=== PATIENT | male | born 1975 | race Caucasian/White ===

== ENCOUNTER 2017-12-17 11:15 | Emergency (ER) | payer SELFPAY ==
[2017-12-17 11:17] VITALS: BP 141/89; PULSE 73; RESP 16; TEMP 37.1; O2SAT 98; BMI 37.9
--- NOTE | 2017-12-17 11:31 | ED.VISSUMM ---
- ER Visit Summary Date of Service: 12/17/17 Chief Complaint: [Cough] History of Present Illness: The patient is a 42 M [presents to the emergency department with a cough that started 2 days ago. Patient complains of postnasal drip, sore throat, body aches, headache and generally not feeling well. Patient denies any sick contacts. Patient has not had a fever. Patient's cough has not been productive.] Physical Examination: [HEENT-PERRLA, EOMI. Cranial nerves II through XII grossly intact. TMs clear. Mucous membranes moist. No adenopathy. Cardiovascular-regular rate and rhythm without murmur or ectopy Lungs-clear to auscultation, chest wall stable without crepitus or subcu emphysema Abdomen-normoactive bowel sounds, soft, nontender, no rebound or rigidity, no peritoneal signs. Extremities-intact ?4, normal range of motion, normal pulses, atraumatic] Test Results: [None indicated] Emergency Department Course and Treatment: [] Treatment Plan: [Patient will be given a prescription for Tessalon Perles. Patient advised to use Mucinex which is [id number] for congestion. Patient advised use ibuprofen for body aches and headache.] Disposition: [Discharged to home in stable condition. Patient advised to return if increased difficulty breathing or condition should worsen in any way.] Impression: [Viral upper respiratory infection-suspect influenza] This note was generated with [employer] dictation software. It may contain incorrect words, spelling, and punctuation that were not noted in review of the chart prior to signing ED Disposition - Plan for ED Patient: Chief Complaint: Cough Referrals: Nikko Mills MD [Primary Care Provider] -
--- NOTE | 2017-12-17 11:33 | ED.DEP ---
ED Disposition - Plan for ED Patient: Chief Complaint: Cough Instructions: ED Flu Prescriptions: Benzonatate [Tessalon Perle] 200 mg PO TID PRN PRN #20 cap PRN Reason: Cough Referrals: Nikko Mills MD [Primary Care Provider] - 5-7 Days
== END 2017-12-17 11:44 | disposition home or self-care (01) ==
LOC: ED 11:35
PROVIDERS: Emergency Provider Emergency Medicine; Family Provider Family Medicine; PCP Family Medicine
DX: J06.9 Acute upper respiratory infection, unspecified (principal); E11.9 Type 2 diabetes mellitus without complications; I10 Essential (primary) hypertension
CPT/HCPCS: 99282

== ENCOUNTER 2018-12-05 15:35 | Emergency (ER) | payer MEDICAID, SELFPAY ==
[2018-12-05 15:37] VITALS: BP 144/86; PULSE 81; RESP 16; TEMP 36; O2SAT 99; BMI 34.1
[2018-12-05 16:03] VITALS: O2SAT 99
--- NOTE | 2018-12-05 16:03 | EKG12_ITS ---
Test Reason : SOB Blood Pressure : / mmHG Vent. Rate : 059 BPM Atrial Rate : 059 BPM P-R Int : 178 ms QRS Dur : 100 ms QT Int : 426 ms P-R-T Axes : 022 128 014 degrees QTc Int : 421 ms Sinus bradycardia Left posterior fascicular block Abnormal ECG Confirmed by TINA JUAREZ, DANIEL ([id number]), field map editor REY DIAZ ([id number] on 12/08/2018 10:20:01 AM Referred By: DANAE Confirmed By:DANIEL WILDER MD
--- NOTE | 2018-12-05 16:07 | ED.DCSUM_ITS ---
- ER Visit Summary Date of Service: 12/05/18 Chief Complaint: Cough History of Present Illness: The patient is a 43 M past medical history of insulin pen diabetes, hypertension, high cholesterol kidney stones. No prior surgeries. Patient states since yesterday he has been coughing up black stuff. I asked him if it was bloody said no it was black stuff. He denies nausea, vomiting or diarrhea. No history of DVT or PE. No recent travel or surgery. No cardiac history. He denies any fever or chills. Physical Examination: Well-appearing middle-age male. Vital signs are stable afebrile. Pulse ox 9 9% on room air no hypoxia. HEENT exam unremarkable. Neck nontender no lymphadenopathy. Lungs clear to auscultation bilaterally. No rales, rhonchi or wheezing. Equal symmetrical. Heart regular rate and rhythm no murmur rate about 80. Chest wall nontender. Abdomen soft nontender. Extremities moves all 4. Calves nontender. No edema. No cords. Back nontender. Lungs are clear posteriorly. Neurologic exam normal. All 4 extremities. Neurovascular intact. NIH is 0. Test Results: Chest x-ray 2 views shows no acute abnormality read both by myself and radiologist. EKG sinus rhythm rate of 59 no acute signs of FL or ischemia. CBC shows a white count 12.6. Normal hemoglobin is 16. No bands. Electrolytes unremarkable with a normal creatinine and gap. Blood sugar is elevated at 334. He is diabetic and states he had donuts this morning. Troponin d-dimer negative. Emergency Department Course and Treatment: Due to his complaints. Clinically this does not sound cardiac and I think it is very unlikely to be a PE. Repeat exam at 1716 p.m. patient is doing well. Unchanged. Comfortable being discharged home. We did discuss all his test results and went over his chest x- ray. Treatment Plan: Follow-up with his primary care physician in 5 days if not improving. Disposition: Discharge Impression: Acute dyspnea uncertain etiology This note was generated with [employer] dictation software. It may contain incorrect words, spelling, and punctuation that were not noted in review of the chart prior to signing ED Disposition - Plan for ED Patient: Referrals: Nikko Mills MD [Primary Care Provider] -
--- NOTE | 2018-12-05 16:20 | RAD_ITS ---
STUDY: X-RAY CHEST REASON FOR EXAM: Male, 43 years old. Short of breath. Chest pain. TECHNIQUE: Frontal and lateral views of the chest. COMPARISON: 11/09/2017. FINDINGS: The lungs are clear and expanded. There is no demonstrated pleural abnormality. Normal size heart. Normal mediastinum and leland. Normal visualized pulmonary arteries. Normal visualized aortic arch and descending thoracic aorta. Normal visualized thoracic spine. Normal visualized ribs, clavicles, and shoulders. There is no demonstrated abnormality of the visualized soft tissue structures of the upper abdomen. RAD/Chest PA and Lateral IMPRESSION: Normal x-ray examination of the chest. Electronically Signed: Wing Marcano MD at 17:03 EST , Service support ,
[2018-12-05 16:22] VITALS: O2SAT 98
[2018-12-05 16:28] LABS: Absolute Lymphocyte Count 0.74 X10^3/ul (0.83-4.51); Absolute Neutrophil Count 11.7 X10^3/uL (2.0-7.7); Basophil# 0.02 X10^3/uL; Basophil% 0.2 % (0-1); Eosinophil# 0.01 X10^3/uL; Eosinophils% 0.1 % (0-5); Hematocrit 48.1 % (40-54); Lymphocyte # 0.74 X10^3/ul (4.0); Lymphocyte % 5.9 % (19-41); Mean Corp Hgb Conc 33.3 g/gl (32-36); Mean Corpuscular Hgb 29.5 pg (27.0-32.0); Mean Corpuscular Volume 88.7 fL (80-94); Mean Platelet Vol. 11.9 fl (6.2-12.0); Monocyte% 0.8 % (0-10); Neutrophil # 11.73 X10^3/uL (2.7-7.7); Neutrophil % 92.7 % (47-70); Platelet Count 272 K/mm3 (150-450); RBC Distribution Width CV 12.7 % (11.6-14.6); RBC Distribution Width SD 41.5 fl (35.1-43.9); Red Blood Count 5.42 M/mm3 (4.6-6.2); White Blood Count 12.6 K/mm3 (4.4-11.0)
[2018-12-05 16:39] VITALS: BP 143/78; PULSE 64; RESP 17; TEMP 36; O2SAT 98
[2018-12-05 16:42] LABS: Anion Gap 8 (5-15); BUN 11 mg/dL (7-18); BUN/Creat Ratio 11.1 RATIO (10-20); Calcium,Total 9.3 mg/dL (8.5-10.1); Chloride 105 mmol/L (98-107); Creatinine, Serum 0.99 mg/dL (0.70-1.30); EST Glomerular Filtration Rate 87 mL/min (>60); Est Glom Filt Rate - Afr Amer 106 mL/min (>60); Estimated Creatinine Clearance 102.47 ml/min; Glucose 334 mg/dL (74-106); Potassium 4.7 mmol/L (3.5-5.1); Sodium Level 137 mmol/L (136-145)
[2018-12-05 16:45] LABS: D-Dimer Quantitative (DVT/PE) < 0.27 FEU/ug/m (0.27-0.49)
[2018-12-05 16:46] LABS: POSITIVE COUNT NO; POSITIVE DIFFERENTIAL NO; POSITIVE MORPHOLOGY NO
--- NOTE | 2018-12-05 17:20 | ED.DEP ---
ED Disposition - Plan for ED Patient: Disposition: Home or Assisted Living Instructions: ED Dyspnea Shortness of Breath Referrals: Nikko Mills MD [Primary Care Provider] - 1 Week if not improving
[2018-12-05 17:27] VITALS: BP 125/73; PULSE 63; RESP 13; O2SAT 96
== END 2018-12-05 17:32 | disposition home or self-care (01) ==
PROVIDERS: Emergency Provider Emergency Medicine; Family Provider Family Medicine; PCP Family Medicine
DX: R06.00 Dyspnea, unspecified (principal); E11.65 Type 2 diabetes mellitus with hyperglycemia; I10 Essential (primary) hypertension; E78.00 Pure hypercholesterolemia, unspecified; Z87.442 Personal history of urinary calculi
CPT/HCPCS: 71046; 80048; 84484; 85025; 85379; 93005; 99284; A4216

== ENCOUNTER → 2019-04-29 10:59 | Outpatient (CLI) | payer MEDICAID, SELFPAY ==
[2019-04-29 12:47] LABS: Basophil# 0.04 X10^3/uL; Basophil% 0.4 % (0-1); Eosinophil# 0.51 X10^3/uL; Eosinophils% 4.7 % (0-5); Hematocrit 47.6 % (40-54); Lymphocyte % 21.2 % (19-41); Mean Corp Hgb Conc 33.6 g/gl (32-36); Mean Corpuscular Hgb 29.2 pg (27.0-32.0); Mean Corpuscular Volume 86.9 fL (80-94); Mean Platelet Vol. 12.7 fl (6.2-12.0); Monocyte# 1.03 X10^3/uL; Monocyte% 9.5 % (0-10); Neutrophil # 6.96 X10^3/uL (2.7-7.7); Platelet Count 244 K/mm3 (150-450); RBC Distribution Width CV 13.2 % (11.6-14.6); RBC Distribution Width SD 41.8 fl (35.1-43.9); Red Blood Count 5.48 M/mm3 (4.6-6.2); White Blood Count 10.9 K/mm3 (4.4-11.0)
[2019-04-29 12:54] LABS: POSITIVE COUNT NO; POSITIVE DIFFERENTIAL NO; POSITIVE MORPHOLOGY NO
[2019-04-29 13:03] LABS: ALB/GLOB Ratio 1.1 RATIO (0.9-2.4); AST(SGOT) 12 U/L (15-37); Alanine Aminotransfer ALT/SGPT 28 U/L (16-61); Alkaline Phosphatase 94 U/L (45-117); Anion Gap 6 (5-15); BUN 14 mg/dL (7-18); BUN/Creat Ratio 18.5 RATIO (10-20); Chloride 103 mmol/L (98-107); Creatinine, Serum 0.76 mg/dL (0.70-1.30); EST Glomerular Filtration Rate 119 mL/min (>60); Est Glom Filt Rate - Afr Amer 144 mL/min (>60); Globulin 3.8 g/dL (2.2-4.2); Glucose 227 mg/dL (74-106); Potassium 4.1 mmol/L (3.5-5.1); Protein, Total 7.8 g/dL (6.4-8.2); Sodium Level 134 mmol/L (136-145); Thyroid Stim Hormone (TSH) 2.31 uIU/mL (0.358-3.74)
== END ==
PROVIDERS: Family Provider Family Medicine; PCP Family Medicine; Visit Provider Family Medicine Geriatric Medicine
DX: E11.9 Type 2 diabetes mellitus without complications (principal)
CPT/HCPCS: 36415; 80053; 84443; 85025

== ENCOUNTER 2020-02-13 10:24 | Emergency (ER) | payer MEDICAID, SELFPAY ==
[2020-02-13 10:25] VITALS: BP 136/86; RESP 18; TEMP 36.4; O2SAT 99; BMI 34.8
--- NOTE | 2020-02-13 10:39 | RAD_ITS ---
STUDY: X-RAY - RIGHT SHOULDER REASON FOR EXAM: Male, 44 years old. felt a pop today when pulling on something TECHNIQUE: 4 view(s) of the shoulder. COMPARISON: None. FINDINGS: Normal glenohumeral articulation. Normal acromioclavicular joint. Normal acromion. Normal humeral head and visualized proximal humerus. The soft tissue structures are unremarkable. There is no demonstrated fracture. Normal visualized pulmonary apex. RAD/Shoulder min 2 Views IMPRESSION: Normal x-ray examination of the shoulder. Electronically Signed: Saul Castillo MD at 12:07 EDT , Service support ,
--- NOTE | 2020-02-13 10:51 | ED.DCSUM_ITS ---
History of Present Illness Informant: Patient Occurred: Yesterday Mechanism/Context: Injury Onset: Yesterday Context: Sudden Onset Timing: Continuous Quality of Pain: Sharp Location: Right shoulder Current Severity: Moderate Maximum Severity: Severe Worsened by: Movement Relieved by: Rest Associated Symptoms: Negative for: Parasthesia, Weakness, Loss of Funtion Narrative: 44-year-old [id number] male with a past medical history of hypertension hyperlipidemia and type 2 diabetes mellitus presents to the emergency department with right shoulder pain. He was working on his car yesterday and he was pulling a part out of the engine with a lot of force in he felt a pop in his right shoulder. He has had continued pain and swelling. No trauma. No weakness numbness or tingling. No other injuries. No history of injury or surgery previously. Tetanus Immunization: Unknown Prior similar symptoms: No Recent Illness/Hospitalization: No <Monroe Rollins - Last Filed: 02/13/20 11:32> <Xuan Montgomery - Last Filed: 02/13/20 11:37> Chief Complaint: Upper Extremity Injury Past Medical History Prior records reviewed: Yes Past Medical History: - - HTN, HPL, DM2 Surgical History: no surgical history Smoking Status: Never smoker - Family History Paternal Family History: Reports: Heart Disease - dad at 40 YOA with an [place] <Monroe Rollins - Last Filed: 02/13/20 11:32> <Xuan Montgomery - Last Filed: 02/13/20 11:37> - Allergies and Home Meds Allergies/Adverse Reactions: Allergies No Known Allergies Allergy (Verified 02/13/20 10:25) Primary Care Physician: Nikko Mills MD [Primary Care Provider] - Arnaud Tucker DO [STAFF PHYSICIAN] - As soon as possible Review of Systems All systems negative except as indicated General: Denies: Chills, Fever, Malaise Eyes: Denies: Visual changes - bilaterally, Blurred Vision - bilaterally, Diplopia ENT: Denies: Rhinorrhea, Sore throat Cardiovascular: Denies: Chest pain, Palpitations, Heart racing Respiratory: Denies: Dyspnea, Cough, Sputum, Dyspnea on exertion Gastrointestinal: Denies: Abdominal pain, Nausea, Vomiting, Diarrhea Genitourinary: Denies: Dysuria, Hematuria, Frequency Musculoskeletal: Reports: Extremity Pain. Denies: Myalgias, Arthralgias, Neck pain, Back pain, Swelling Skin: Denies: Rash, Abscess, Abrasions, Wounds Neurological: Denies: Headache, Weakness, Parasthesia, Numbness Hematologic: Denies: Easy bruising, Easy bleeding <Mornoe Rollins - Last Filed: 02/13/20 11:32> Physical Exam Vital Signs/Narrative: Vital Signs Temp Resp BP Pulse Ox 02/13/20 10:25 97.5 F L 18 136/86 H 99 Inital Vital Signs reviewed: Yes Right Shoulder: Limited ROM, - - Normal inspection right shoulder. Tenderness anteriorly. He has pain with abduction, as well as internal and external rotation mostly anteriorly. He has no bony tenderness of his clavicle or scapula. He does not have any pain over his bicep or tricep. He has no tenderness over his elbow or wrist. [employer] strength was equal bilaterally. Radial pulse is normal.. Negative for: Abrasion, Contusion, Deformity, Edema, Hematoma General: Well nourished, Well developed Head: Normocephalic, Atraumatic Eyes: Perrl, EOMI ENT: No Trauma, Moist Mucous Membranes Neck: Nontender, Full ROM. Negative for: Spinal Tenderness, Paraspinal Tenderness Cardiovascular: Regular rate, Regular rhythm, No murmurs Respiratory: No distress, CTA bilaterally, Chest nontender Abdomen: Soft, Nontender, Nondistended, Normal bowel sounds, No masses Back: Nontender. Negative for: Spinal Tenderness, Paraspinal Tenderness Skin: Normal color, No rash, No Trauma Neurological: Alert, Oriented x3, Normal Strength, Normal Sensation Psychological: Normal affect, Normal Mood <Monroe Rollins - Last Filed: 02/13/20 11:32> Vital Signs/Narrative: Vital Signs Temp Resp BP Pulse Ox 02/13/20 10:25 97.5 F L 18 136/86 H 99 <Xuan Montgomery - Last Filed: 02/13/20 11:37> Diagnostic/Tx/Re-eval - Medical Decision Making Patient declined analgesia. X-ray right shoulder interpreted independently by the emergency room physician. No acute abnormality was seen. Patient was advised he will need close follow-up as an outpatient with orthopedics as he could have a soft tissue injury such as a labral injury or rotator cuff injury. He will be given a sling. He states that he has both Tylenol and ibuprofen to use at home for pain and does not require further analgesia. I gave him instructions about not wearing his sling at all times to avoid frozen shoulder. He will rest and ice. He will be given orthopedic follow-up. Return precautions discussed. <Monroe Rollins - Last Filed: 02/13/20 11:32> - Medical Decision Making Patient seen and evaluated with physicians bilingual office assistant. Patient was independently patient presents with right shoulder pain, worse with movement. He was pulling a car part yesterday and felt a pop in his right shoulder. He is right-hand dominant. He denies paresthesias. He denies pain when sitting at rest but has significant pain with any movement. Head neck examination unremarkable. Heart is regular rate and rhythm. Lung sounds are clear. Abdomen is soft and nontender. Right upper extremity examination shows no reproducible tenderness. No deformity noted. Strong distal pulses and good sensation. Right shoulder x-rays are obtained. Per my review there is no acute bony abnormality. Patient is placed in a sling and instructed to come out of sling a couple times a day to work on range of motion. He will be referred to orthopedics for follow-up if not improved. <Xuan Montgomery - Last Filed: 02/13/20 11:37> ED Disposition <Monroe Rollins - Last Filed: 02/13/20 11:32> <Xuan oMntgomery - Last Filed: 02/13/20 11:37> - Plan for ED Patient: Disposition: Home or Assisted Living Diagnosis: Right shoulder strain, Hyperlipidemia, Hypertension, Diabetes mellitus type II, uncontrolled Instructions: ED Shoulder Sprain, ED Strain Muscle Ext Referrals: Nikko Mills MD [Primary Care Provider] - Arnaud Tucker DO [STAFF PHYSICIAN] - As soon as possible
== END 2020-02-13 11:48 | disposition home or self-care (01) ==
PROVIDERS: Emergency Provider Physician Assistant Medical; PCP Family Medicine
DX: S46.911A Strain of unspecified muscle, fascia and tendon at shoulder and upper arm level, right arm, initial encounter (principal); X50.9XXA Other and unspecified overexertion or strenuous movements or postures, initial encounter; Y93.9 Activity, unspecified; Y92.9 Unspecified place or not applicable; Y99.9 Unspecified external cause status; E11.65 Type 2 diabetes mellitus with hyperglycemia; I10 Essential (primary) hypertension; E78.5 Hyperlipidemia, unspecified
CPT/HCPCS: 73030; 99283

== ENCOUNTER 2021-04-07 16:38 | Emergency (ER) | payer MEDICAID, SELFPAY ==
[2021-02-16 10:33] VITALS: BMI 35.8
[2021-04-07 16:39] VITALS: BP 164/103; PULSE 74; RESP 16; TEMP 37.4; O2SAT 98; BMI 34.8
--- NOTE | 2021-04-07 17:12 | EKG12_ITS ---
Test Reason : Blood Pressure : / mmHG Vent. Rate : 055 BPM Atrial Rate : 055 BPM P-R Int : 198 ms QRS Dur : 104 ms QT Int : 398 ms P-R-T Axes : 019 -12 064 degrees QTc Int : 380 ms Sinus bradycardia Inferior infarct , age undetermined Anteroseptal infarct , age undetermined Abnormal ECG Confirmed by TINA JUAREZ, DANIEL ([id number]), news videotape editor OPAL GUERRERO ([id number]) on 04/10/2021 1:37:46 PM Referred By: CHICO Confirmed By:DANIEL WILDER MD
--- NOTE | 2021-04-07 17:13 | EX.ED.DYSGE1 ---
HPI History of Present Illness Chief Complaint: General Illness Informant: patient Onset/Context/Timing Onset: Days Context: Gradual Onset Timing: Waxes and wanes Narrative Narrative: Patient presents secondary to his not feeling well for the past couple days. He states he feels fatigued and weak. He has some left-sided upper back pain. Family is concerned this may be cardiac in nature and encouraged him to come in. He is a diabetic. States his blood sugars have been doing pretty well recently. [facility] Medical History (Updated 04/07/21 @ 19:[address] Xuan Montgomery MD) Arthritis Cataract Diabetes Diabetes Kidney stones Obesity Home Medications atorvastatin 20 mg PO DAILY 02/13/20 [History Last Taken Unknown] fluoxetine 40 mg PO DAILY 02/13/20 [History Last Taken Unknown] insulin aspart U-100 8 unit SQ PCHS 02/13/20 [History Last Taken Unknown] insulin glargine 28 unit SQ QHS 02/13/20 [History Last Taken Unknown] lisinopril 5 mg PO DAILY 02/13/20 [History Last Taken Unknown] meloxicam 15 mg PO DAILY 02/13/20 [History Last Taken Unknown] omeprazole 20 mg PO DAILY 02/13/20 [History Last Taken Unknown] pioglitazone 30 mg PO DAILY 02/13/20 [History Last Taken Unknown] albuterol sulfate 90 mcg/actuation aerosol inhaler 90 mcg INHALATION PRN PRN 02/16/21 [History Last Taken Unknown] blood sugar diagnostic #10 each 02/16/21 [History Last Taken Unknown] lancets 28 gauge #100 each 02/16/21 [History Last Taken Unknown] metformin 500 mg tablet 1,000 mg PO BID tablet 02/16/21 [History Last Taken Unknown] pen needle, diabetic 31 gauge x 1/4 #50 each 02/16/21 [History Last Taken Unknown] Allergy/AdvReac Type Severity Reaction Status Date / Time No Known Allergies Allergy Verified 04/07/21 16:40 Social History Smoking Status: Never smoker alcohol intake: current alcohol intake frequency: 0-2 drinks per day substance use type: marijuana what type of physical activity do you participate in: none ROS ROS ED Constitutional Constitutional ED: Denies chills or fever(s) Eyes Eyes: Denies change in vision ENT ENT ED: Denies sore throat Cardiovascular Cardiovascular: Denies chest pain Respiratory/Chest Respiratory/Chest: Denies cough or dyspnea Gastrointestinal Gastrointestinal: Denies abdominal pain, diarrhea, nausea or vomiting Genitourinary Genitourinary ED: Denies dysuria Musculoskeletal Musculoskeletal: Reports back pain Integumentary Denies rash Neurologic Neurologic: Reports weakness and other Details: Generalized fatigue ; Denies headache(s) Psychiatric Psychiatric: Denies anxiety or depression Endocrine Endocrinology: Denies polydipsia or polyuria Allergic/Immunologic Allergic/Immunologic ED: Denies urticaria EXAM Physical Exam Const Vital Signs: 04/07/21 16:39 04/07/21 17:13 Temperature 99.3 F H Temperature Source Temporal Pulse Rate 74 Respiratory Rate 16 Respiratory Effort Normal Non-Labored Respiratory Pattern Normal Blood Pressure 164/103 H Blood Pressure Mean 123 Pulse Ox 98 Oxygen Delivery Method Room Air Positive well nourished and well developed General Appearance ED: well developed HEENT Reports normocephalic and head/scalp atraumatic Eyes PERRL and EOMs intact bilaterally Neck supple Chest Wall inspection of chest normal and palpation of chest normal Resp normal respiratory effort and clear to auscultation bilaterally Cardio regular rate and regular rhythm GI normal to inspection, nondistended, normoactive bowel sounds Palpation: soft Back/Spine no CVA tenderness Back/Spine Narrative: Mild tenderness in the left low thoracic paraspinal muscles. No overlying skin change. Extremity normal to inspection Neuro oriented x3 and no sensory deficits noted Sensorium / Orientation: alert Motor Exam: strength 5/5 throughout Psych mental status grossly normal Skin no rashes or lesions noted MDM MDM MDM Narrative Medical decision making narrative: Patient was placed on cardiac cath lab radiology technologist. EKG, labs, chest x-ray obtained. Lab Data Attestation: I reviewed the patient's lab results. Labs: Laboratory Results - last 24 hr 04/07/21 04/07/21 04/07/21 17:20 17:20 18:40 WBC 13.2 H RBC 4.97 Hgb 15.2 Hct 44.7 MCV 89.9 MCH 30.6 MCHC 34.0 RDW Std Deviation 42.0 RDW Coeff of Elias 12.8 Plt Count 262 MPV 11.3 Immature Gran % (Auto) 0.300 Neut % (Auto) 65.5 Lymph % (Auto) 21.1 [place] % (Auto) 8.7 Eos % (Auto) 3.9 Baso % (Auto) 0.5 Absolute Neuts (auto) 8.6 H Absolute Lymphs (auto) 2.77 Nucleated RBC % 0 Sodium 137 Potassium 3.6 Chloride 105 Carbon Dioxide 28.0 Anion Gap 4 L BUN 11 Creatinine 0.76 Estim Creat Clear Calc 130.73 Est GFR (MDRD) Af Amer 143 Est GFR (MDRD) Non-Af 118 BUN/Creatinine Ratio 14.5 Glucose 139 H Calcium 9.0 Troponin I < 0.015 Urine Color Yellow Urine Clarity Clear Urine pH 7.0 Ur Specific [place] 1.010 Urine Protein Negative Urine Glucose (UA) Normal Urine Ketones Negative Urine Occult Blood Negative Urine Nitrite Negative Urine Bilirubin Negative Urine Urobilinogen Normal Ur Leukocyte Esterase 25 H Urine RBC 0 SEEN Urine WBC 0-5 SEEN Ur Squamous Epith Cells 0-5 SEEN Urine Bacteria 0 SEEN Urine Mucus 0 SEEN Radiography Chest X-Ray - ED: 1 View, Read by ED Physician, Normal, Heart, Lungs and Mediastinum Diagnostic Testing: Radiology Impression Chest X-Ray 04/07/21 17:30 IMPRESSION: No acute cardiopulmonary process. Electronically Signed: Elliott Saleh MD at 18:07 EDT Tel , Service support , EKG Initial EKG: Attestation: I personally reviewed and interpreted this EKG as follows: Interpretation: Sinus Bradycardia (Sinus bradycardia at 55 bpm. No acute ischemia.) Treatment and Re-Evaluation Comments:: Test results discussed with the patient. He does have a slight elevation in his white count, but no focal sign of infection. Pain would be atypical for cardiac etiology and patient has a negative troponin. Patient advised to monitor his symptoms and return for worsened symptoms or concerns. He voices understanding and agreement. Return instructions are provided. Discharge Plan Triage Chief Complaint: General Illness ED Provider: Xuan Montgomery Dx/Rx/DC Orders Clinical Impression: Myalgia Instructions: ED Weakness (Uncertain Cause) Prescriptions: No Action albuterol sulfate 90 mcg/actuation HFA aerosol inhaler 90 mcg INHALATION PRN PRN (Reason: Wheezing) RF: 0 (DME) pen needle, diabetic 31 gauge x 1/4 needle See Rx Instructions ea .ROUTE .MEDSUPPLY Qty: 50 RF: 0 (DME) lancets 28 gauge misc See Rx Instructions ea .ROUTE .MEDSUPPLY Qty: 100 RF: 0 (DME) blood sugar diagnostic Strip See Rx Instructions strip .ROUTE .MEDSUPPLY Qty: 10 RF: 0 fluoxetine 40 MG capsule 40 mg PO DAILY RF: 0 atorvastatin 20 MG tablet 20 mg PO DAILY RF: 0 meloxicam 15 MG tablet 15 mg PO DAILY RF: 0 omeprazole 20 MG capsule,delayed release(DR/EC) 20 mg PO DAILY RF: 0 lisinopril 5 MG tablet 5 mg PO DAILY RF: 0 pioglitazone 30 MG tablet 30 mg PO DAILY RF: 0 insulin aspart U-100 100 UNIT/ML insulin pen 8 unit SQ PCHS RF: 0 insulin glargine 100 UNIT/ML insulin pen 28 unit SQ QHS RF: 0 metformin 500 mg tablet 1,000 mg PO BID RF: 0 Primary Care Provider: Nikko Mills Referrals: Nikko Mills MD [Primary Care Provider] - 1 Week if not improving Disposition Disposition: Home, self care
--- NOTE | 2021-04-07 17:30 | RAD_ITS ---
STUDY: X-RAY CHEST REASON FOR EXAM: Male, 45 years old. cp TECHNIQUE: Chest pain COMPARISON: 12/05/2018 FINDINGS: Cardiomediastinal silhouette is unremarkable. Costophrenic angles are sharp. Lungs are clear. The trachea is midline. There is no pneumothorax. There are mild degenerative changes and dextroscoliosis of the thoracic spine. RAD/Chest 1 View (Portable) IMPRESSION: No acute cardiopulmonary process. Electronically Signed: Elliott Saleh MD at 18:07 EDT Tel , Service support ,
[2021-04-07 17:37] LABS: Absolute Lymphocyte Count 2.77 X10^3/uL (0.83-4.51); Absolute Neutrophil Count 8.6 X10^3/uL (2.0-7.7); Basophil# 0.06 X10^3/uL; Basophil% 0.5 % (0-1); Eosinophil# 0.51 X10^3/uL; Eosinophils% 3.9 % (0-5); Hematocrit 44.7 % (40-54); Hemoglobin 15.2 g/dL (13.0-16.5); Lymphocyte # 2.77 X10^3/ul (0.83-4.51); Lymphocyte % 21.1 % (19-41); Mean Corpuscular Hgb 30.6 pg (27.0-32.0); Mean Corpuscular Volume 89.9 fL (80-94); Mean Platelet Vol. 11.3 fl (6.2-12.0); Monocyte# 1.14 X10^3/uL; Monocyte% 8.7 % (0-10); NRBC Flagged by Analyzer 0 % (0-5); Neutrophil # 8.63 X10^3/uL (2.7-7.7); Neutrophil % 65.5 % (47-70); Platelet Count 262 K/mm3 (150-450); RBC Distribution Width CV 12.8 % (11.6-14.6); Red Blood Count 4.97 M/mm3 (4.6-6.2); White Blood Count 13.2 K/mm3 (4.4-11.0)
[2021-04-07 17:51] LABS: Anion Gap 4 (5-15); BUN 11 mg/dL (7-18); BUN/Creat Ratio 14.5 RATIO (10-20); Chloride 105 mmol/L (98-107); Creatinine, Serum 0.76 mg/dL (0.70-1.30); EST Glomerular Filtration Rate 118 mL/min (>60); Est Glom Filt Rate - Afr Amer 143 mL/min (>60); Estimated Creatinine Clearance 130.73 ml/min; Glucose 139 mg/dL (74-106); Potassium 3.6 mmol/L (3.5-5.1); Sodium Level 137 mmol/L (136-145)
[2021-04-07 18:47] LABS: Bacteria 0 SEEN /hpf (None Seen); Mucous, Urine 0 SEEN /hpf (<or=2+); Red Blood Cells-Urine 0 SEEN /hpf (0-5)
[2021-04-07 19:01] LABS: Color, Urine Yellow (Yellow); Glucose, Dipstick Normal (Normal); Ketone-Dipstick Negative (Negative); Leukocyte Esterase-Dipstick 25 /ul (Negative); Nitrite-Dipstick Negative (Negative); Occult Blood-Urine Negative /ul (Negative); Protein-Dipstick Negative (Negative); Urine Bilirubin Dipstick Negative (Negative); Urine Clarity Clear (Clear); Urine Urobilinogen Normal (Normal)
[2021-04-07 19:13] LABS: Squamous Epithelial Cells - UA 0-5 SEEN /hpf (0-5); White Blood Cells 0-5 SEEN /hpf (0-5)
[2021-04-07 19:53] VITALS: BP 120/80; PULSE 50; RESP 16; O2SAT 98
== END 2021-04-07 19:53 | disposition home or self-care (01) ==
PROVIDERS: Emergency Provider Emergency Medicine; PCP Family Medicine
DX: M79.10 Myalgia, unspecified site (principal); M54.6 Pain in thoracic spine; R00.1 Bradycardia, unspecified; M19.90 Unspecified osteoarthritis, unspecified site; E11.9 Type 2 diabetes mellitus without complications; E66.9 Obesity, unspecified; Z79.4 Long term (current) use of insulin; Z79.1 Long term (current) use of non-steroidal anti-inflammatories (NSAID); Z79.899 Other long term (current) drug therapy
CPT/HCPCS: 71045; 80048; 81001; 84484; 85025; 93005; 99284; J7030; A4216

== ENCOUNTER 2021-04-21 15:25 | Inpatient (IN) | payer MEDICAID, SELFPAY ==
[2021-04-21] VITALS (9 sets, daily range): BP systolic 124–170; BP diastolic 82–94; PULSE 48–68; RESP 12–18; TEMP 35.5–36.7; O2SAT 96–100; BMI 34.8; BMI 21.4
--- NOTE | 2021-04-21 15:54 | RAD_ITS ---
STUDY: X-RAY CHEST REASON FOR EXAM: Male, 45 years old. chest pain TECHNIQUE: Single AP portable view of the chest. COMPARISON: 04/07/2021 FINDINGS: The lungs are clear and expanded. There is no demonstrated pleural abnormality. Normal size heart. Normal mediastinum and leland. Normal visualized pulmonary arteries. Normal visualized aortic arch and descending thoracic aorta. Normal visualized thoracic spine. Normal visualized ribs, clavicles, and shoulders. There is no demonstrated abnormality of the visualized soft tissue structures of the upper abdomen. RAD/Chest 1 View (Portable) IMPRESSION: Normal x-ray examination of the chest. Electronically Signed: Trenton Cherry MD at 16:58 EDT Tel , Service support ,
--- NOTE | 2021-04-21 15:54 | EKG12_ITS ---
Test Reason : CP Blood Pressure : / mmHG Vent. Rate : 059 BPM Atrial Rate : 059 BPM P-R Int : 182 ms QRS Dur : 104 ms QT Int : 400 ms P-R-T Axes : 022 142 057 degrees QTc Int : 396 ms Sinus bradycardia Left posterior fascicular block Inferior infarct , age undetermined Anterior infarct , age undetermined Abnormal ECG Confirmed by GITA JUAREZ, ROCIO ([id number]), newspaper copy editor OPAL GUERRERO ([id number]) on 04/25/2021 7:02:26 AM Referred By: UR Confirmed By:ROCIO PELAYO MD
--- NOTE | 2021-04-21 15:58 | ED.VIS.CHEST ---
HPI History of Present Illness Chief Complaint: Chest Pain Detail of Chief Complaint: Patient with complaint of chest pain that started a week ago Informant: patient Onset/Context/Timing Timing: Intermittent Quality: Positive for Aching, Dull and Heaviness Worsened By: Exertion Narrative Narrative: Patient presents to the emergency department complaint of chest pain that started about a week ago intermittently. Patient states it can last up to an hour. He notices that with exertion it typically worsens or brings it on. He complains of feeling fatigued with it. He complains of diaphoresis. He denies nausea or vomiting or significant shortness of breath. Patient does have history of diabetes, hypertension, high cholesterol. He does not have any heart history himself. Patient states that his father at a young age of cardiac disease. Patient denies recent travel or surgery. He denies recent illness. [facility] Medical History (Updated 04/21/21 @ 17:[address] Mina Clinton DO) Cataract Kidney stones Home Medications atorvastatin 20 mg PO DAILY 02/13/20 [History Last Taken 2 Days Ago ~04/19/21] fluoxetine 40 mg PO DAILY 02/13/20 [History Last Taken 04/21/21] insulin aspart U-100 12 unit SQ TIDCM 02/13/20 [History Last Taken 04/21/21] insulin glargine 28 unit SQ DAILY 02/13/20 [History Last Taken 04/21/21] lisinopril 5 mg PO DAILY 02/13/20 [History Last Taken 04/21/21] meloxicam 15 mg PO DAILY 02/13/20 [History Last Taken 04/21/21] omeprazole 20 mg PO DAILY 02/13/20 [History Last Taken 04/21/21] albuterol sulfate 90 mcg/actuation aerosol inhaler 90 mcg INHALATION PRN PRN 02/16/21 [History Last Taken Unknown] Allergy/AdvReac Type Severity Reaction Status Date / Time No Known Allergies Allergy Verified 04/21/21 15:27 Social History Smoking Status: Never smoker alcohol intake: current alcohol intake frequency: 0-2 drinks per day substance use type: marijuana what type of physical activity do you participate in: none ROS ROS ED Review of Systems ROS Unobtainable: other Constitutional Constitutional ED: Reports lethargy; Denies chills, fever(s), sweats or weight loss Eyes Eyes: Denies blurry vision, change in vision or diplopia ENT ENT ED: Denies rhinorrhea or sore throat Cardiovascular Cardiovascular: Reports chest pain; Denies orthopnea or racing heartbeat Respiratory/Chest Respiratory/Chest: Reports dyspnea and dyspnea on exertion; Denies cough, orthopnea or sputum Gastrointestinal Gastrointestinal: Denies abdominal pain, diarrhea, nausea or vomiting Genitourinary Genitourinary ED: Denies dysuria, hematuria or urinary frequency Musculoskeletal Musculoskeletal: Denies arthralgias, back pain, myalgias or neck pain Integumentary Denies abscess, Abrasions or rash Neurologic Neurologic: Denies headache(s) or weakness Psychiatric Psychiatric: Denies anxiety, depression or suicidal thoughts Endocrine Endocrinology: Denies polydipsia, polyphagia or polyuria Hematologic/Lymphatic Hematologic/Lymphatic: Denies easy bleeding, easy bruising or lymphadenopathy Allergic/Immunologic Allergic/Immunologic ED: Denies mouth swelling, tongue swelling or urticaria EXAM Physical Exam Const Vital Signs: 04/21/21 15:26 04/21/21 15:55 04/21/21 16:02 Temperature 95.9 F L Temperature Source Temporal Pulse Rate 68 62 Respiratory Rate 15 Respiratory Effort Normal Blood Pressure 168/90 H 145/82 H Blood Pressure Mean 116 Pulse Ox 98 Oxygen Delivery Method Room Air Room Air 04/21/21 16:09 04/21/21 17:10 Temperature Temperature Source Pulse Rate 68 59 L Respiratory Rate 14 14 Respiratory Effort Blood Pressure 124/82 H 139/86 H Blood Pressure Mean 96 103 Pulse Ox 96 Oxygen Delivery Method Room Air Positive well nourished and well developed General Appearance ED: well developed and NAD HEENT Reports TM's clear and moist mucous membranes normocephalic and atraumatic; Negative for trauma or tenderness Tympanic Membrane ED: Yes TM's clear Eyes PERRL and EOMs intact bilaterally General Eye ED: Negative for pale conjunctiva or scleral icterus Neck no lymphadenopathy, supple and no JVD General: Negative for tenderness Chest Wall inspection of chest normal and palpation of chest normal Chest: Negative for tenderness Resp normal respiratory effort and clear to auscultation bilaterally Effort and Inspection: Negative for respiratory distress or pain with movement Auscultation: Negative for rhonchi, wheezes or diminished lung sounds Cardio regular rate, regular rhythm, S1 normal heart sound, S2 normal heart sound and no murmurs Peripheral Pulses: pulses 2+ throughout GI normal to inspection, nondistended, normoactive bowel sounds, soft to palpation, non-tender, non-distended and no masses Back/Spine no CVA tenderness and no thoracic nor lumbar tenderness Extremity normal to inspection General Extremety ED: Negative for edema General Extremity: Negative for edema Neuro oriented x3, CN's II-XII intact bilaterally, no sensory deficits noted and gait normal Sensorium / Orientation: awake, alert, oriented to person, oriented to place and oriented to time Motor Exam: strength 5/5 throughout and strength abnormal Psych mental status grossly normal Skin no rashes or lesions noted and no wounds Heart Score History: Highly Suspicious ECG: Nonspecific Repolarization Age: >45 - <65 years Risk Factors: >/= 3 Risk Factors or History of CAD Troponin: </= Normal Limit Score: 6 MDM MDM MDM Narrative Medical decision making narrative: Patient chest pain improved with nitroglycerin tablet. He was given an inch of Nitropaste placed to the anterior chest wall. Patient placed on a property assessment monitor on arrival. Patient was given aspirin. Case discussed with hospitalist will evaluate patient for admission. Lab Data Attestation: I reviewed the patient's lab results. Labs: Laboratory Results - last 24 hr 04/21/21 04/21/21 04/21/21 15:35 15:35 16:10 WBC 13.9 H RBC 5.07 Hgb 15.7 Hct 46.8 MCV 92.3 MCH 31.0 MCHC 33.5 RDW Std Deviation 44.0 H RDW Coeff of Elias 13.0 Plt Count 263 MPV 11.4 Immature Gran % (Auto) 0.500 Neut % (Auto) 64.0 Lymph % (Auto) 21.9 [place] % (Auto) 9.7 Eos % (Auto) 3.3 Baso % (Auto) 0.6 Absolute Neuts (auto) 8.9 H Absolute Lymphs (auto) 3.05 Nucleated RBC % 0 D-Dimer Quant (PE/DVT) <= 0.27 Sodium 139 Potassium 4.3 Chloride 106 Carbon Dioxide 29.0 Anion Gap 4 L BUN 13 Creatinine 0.89 Estim Creat Clear Calc 111.63 Est GFR (MDRD) Af Amer 118 Est GFR (MDRD) Non-Af 98 BUN/Creatinine Ratio 14.6 Glucose 155 H Calcium 9.4 Troponin I High Sens 48.4 Radiography Chest X-Ray - ED: 1 View Diagnostic Testing: Radiology Impression Chest X-Ray 04/21/21 15:54 IMPRESSION: Normal x-ray examination of the chest. Electronically Signed: Trenton Cherry MD at 16:58 EDT Tel , Service support , 1 view chest x-ray obtained interpreted by myself as no acute disease process. Radiology was in agreement. EKG Initial EKG: Attestation: I personally reviewed and interpreted this EKG as follows: Comments: Sinus rhythm with a ventricular rate of 59 bpm with old inferior and anterior infarcts noted. Prior EKG tracings: available for review Prior: Unchanged Discharge Plan Triage Chief Complaint: Chest Pain ED Provider: Mina Clinton Dx/Rx/DC Orders Clinical Impression: Chest pain Prescriptions: No Action albuterol sulfate 90 mcg/actuation HFA aerosol inhaler 90 mcg INHALATION PRN PRN (Reason: Wheezing) RF: 0 fluoxetine 40 MG capsule 40 mg PO DAILY RF: 0 atorvastatin 20 MG tablet 20 mg PO DAILY RF: 0 meloxicam 15 MG tablet 15 mg PO DAILY RF: 0 omeprazole 20 MG capsule,delayed release(DR/EC) 20 mg PO DAILY RF: 0 lisinopril 5 MG tablet 5 mg PO DAILY RF: 0 insulin aspart U-100 100 UNIT/ML insulin pen 12 unit SQ TIDCM RF: 0 insulin glargine 100 UNIT/ML insulin pen 28 unit SQ DAILY RF: 0 Primary Care Provider: Nikko Mills Referrals: Nikko Mills MD [Primary Care Provider] - Disposition Disposition: Acute Care Hospital [facility]
[2021-04-21] MEDS: Aspirin 81 MG TAB.CHEW 324 MG PO (16:02)
[2021-04-21] MEDS: Nitroglycerin SL (ED/IMG/CATH) 0.4 MG TABLET SL (16:02)
[2021-04-21] MEDS: 0.9% Normal Saline 1,000 ML 150 ML IV (16:09)
[2021-04-21 16:13] LABS: Absolute Lymphocyte Count 3.05 X10^3/uL (0.83-4.51); Absolute Neutrophil Count 8.9 X10^3/uL (2.0-7.7); Basophil# 0.08 X10^3/uL; Basophil% 0.6 % (0-1); Eosinophil# 0.46 X10^3/uL; Eosinophils% 3.3 % (0-5); Hematocrit 46.8 % (40-54); Hemoglobin 15.7 g/dL (13.0-16.5); Lymphocyte # 3.05 X10^3/ul (0.83-4.51); Lymphocyte % 21.9 % (19-41); Mean Corp Hgb Conc 33.5 g/dL (32-36); Mean Corpuscular Volume 92.3 fL (80-94); Mean Platelet Vol. 11.4 fl (6.2-12.0); Monocyte# 1.35 X10^3/uL; Monocyte% 9.7 % (0-10); NRBC Flagged by Analyzer 0 % (0-5); Platelet Count 263 K/mm3 (150-450); Red Blood Count 5.07 M/mm3 (4.6-6.2); White Blood Count 13.9 K/mm3 (4.4-11.0)
[2021-04-21 16:31] LABS: Anion Gap 4 (5-15); BUN 13 mg/dL (7-18); BUN/Creat Ratio 14.6 RATIO (10-20); Calcium,Total 9.4 mg/dL (8.5-10.1); Chloride 106 mmol/L (98-107); Creatinine, Serum 0.89 mg/dL (0.70-1.30); EST Glomerular Filtration Rate 98 mL/min (>60); Est Glom Filt Rate - Afr Amer 118 mL/min (>60); Estimated Creatinine Clearance 111.63 ml/min; Glucose 155 mg/dL (74-106); Potassium 4.3 mmol/L (3.5-5.1); Sodium Level 139 mmol/L (136-145); Troponin-I HS 48.4 pg/mL (3.0-78.5)
[2021-04-21 17:04] LABS: D-Dimer Quantitative (DVT/PE) <= 0.27 FEU/ug/m (0.27-0.49)
--- NOTE | 2021-04-21 17:48 | PCM.HP.STD ---
Documented by User: ALEHTA Lizarraga 04/21/21 18:03 HPI - General HPI Narrative MICHAEL NAVA, is a 45 M who presents with a 2-week history of intermittent chest pain. Patient states that the chest pain is a crushing/pressure sensation located midsternally and radiating to the left and to his back, patient denies pain that radiates to his left arm or up his neck. Patient states that this pain gets worse with activity and is improved with rest. Patient reports that his blood pressure has been higher than normal in the past 2 weeks. Patient states that he has had episodes like this previously and received a stress test in 2016. Patient also states that he underwent a heart catheterization but cannot remember when. Patient was recently here on 04/07/2021 with similar complaint. [facility] Medical History (Updated 04/21/21 @ 18:00 by ALETHA Lizarraga) Cataract History of anxiety Kidney stones Home Medications atorvastatin 20 mg PO DAILY 02/13/20 [History Last Taken 2 Days Ago ~04/19/21] fluoxetine 40 mg PO DAILY 02/13/20 [History Last Taken 04/21/21] insulin aspart U-100 12 unit SQ TIDCM 02/13/20 [History Last Taken 04/21/21] insulin glargine 28 unit SQ DAILY 02/13/20 [History Last Taken 04/21/21] lisinopril 5 mg PO DAILY 02/13/20 [History Last Taken 04/21/21] meloxicam 15 mg PO DAILY 02/13/20 [History Last Taken 04/21/21] omeprazole 20 mg PO DAILY 02/13/20 [History Last Taken 04/21/21] albuterol sulfate 90 mcg/actuation aerosol inhaler 90 mcg INHALATION PRN PRN 02/16/21 [History Last Taken Unknown] Allergy/AdvReac Type Severity Reaction Status Date / Time No Known Allergies Allergy Verified 04/21/21 15:27 Social History Smoking Status: Never smoker alcohol intake: current alcohol intake frequency: 0-2 drinks per day substance use type: marijuana what type of physical activity do you participate in: none Vital Signs Vital Signs Vital Signs: 04/21/21 15:26 04/21/21 15:55 04/21/21 16:02 Temperature 95.9 F L Temperature Source Temporal Pulse Rate 68 62 Respiratory Rate 15 Respiratory Effort Normal Blood Pressure 168/90 H 145/82 H Blood Pressure Mean 116 Pulse Ox 98 Oxygen Delivery Method Room Air Room Air 04/21/21 16:09 04/21/21 17:10 Temperature Temperature Source Pulse Rate 68 59 L Respiratory Rate 14 14 Respiratory Effort Blood Pressure 124/82 H 139/86 H Blood Pressure Mean 96 103 Pulse Ox 96 Oxygen Delivery Method Room Air Weight Weight: 250 lb Body Mass Index (BMI) 34.8 Results Lab / Micro Data Result Diagrams: 04/21/21 15:35 04/21/21 15:35 Labs: Laboratory Results - last 24 hr 04/21/21 04/21/21 04/21/21 15:35 15:35 16:10 WBC 13.9 H RBC 5.07 Hgb 15.7 Hct 46.8 MCV 92.3 MCH 31.0 MCHC 33.5 RDW Std Deviation 44.0 H RDW Coeff of Elias 13.0 Plt Count 263 MPV 11.4 Immature Gran % (Auto) 0.500 Neut % (Auto) 64.0 Lymph % (Auto) 21.9 [place] % (Auto) 9.7 Eos % (Auto) 3.3 Baso % (Auto) 0.6 Absolute Neuts (auto) 8.9 H Absolute Lymphs (auto) 3.05 Nucleated RBC % 0 D-Dimer Quant (PE/DVT) <= 0.27 Sodium 139 Potassium 4.3 Chloride 106 Carbon Dioxide 29.0 Anion Gap 4 L BUN 13 Creatinine 0.89 Estim Creat Clear Calc 111.63 Est GFR (MDRD) Af Amer 118 Est GFR (MDRD) Non-Af 98 BUN/Creatinine Ratio 14.6 Glucose 155 H Calcium 9.4 Troponin I High Sens 48.4 Radiology Impression Chest X-Ray 04/21/21 15:54 IMPRESSION: Normal x-ray examination of the chest. Electronically Signed: Trenton Cherry MD at 16:58 EDT Tel , Service support , Assessment & Plan Assessment/Plan (1) Chest pain: PLAN: 1. Chest pain -Admit to PCU for cardiac monitoring -Trend cardiac enzymes, initial negative -Cardiac calorie controlled diet -N.p.o. at midnight for stress test -Will obtain CBC BMP and lipid profile in a.m. -Vital signs per protocol, trend BP and heart rate -Oxygen per protocol 2. Hypertension -Will continue home medication regimen of lisinopril with as needed hydralazine ordered as well -Vital signs per protocol trend BP and heart rate 3. Hyperlipidemia -Continue atorvastatin -Obtain lipid panel in a.m. 4. Diabetes mellitus type 2 -Will continue patient's home regimen of Lantus and insulin aspart -AC at bedtime blood sugars with sliding scale insulin also ordered 5. Obesity with BMI of 30.0-34.9 -Encourage lifestyle modification -It is noted that patient's BMI is decreasing from previous admissions. DVT prophylaxis-no pharmacological prophylaxis indicated This patient was seen by ALETHA Lizarraga under the supervision of Dr. Jordan. Documented by User: Dr. Olga Jordan MD 04/21/21 18:17 HPI - General General Date of Admission: 04/21/21 [facility] Medical History (Updated 04/21/21 @ 18:00 by ALETHA Lizarraga) Cataract History of anxiety Kidney stones Home Medications atorvastatin 20 mg PO DAILY 02/13/20 [History Last Taken 2 Days Ago ~04/19/21] fluoxetine 40 mg PO DAILY 02/13/20 [History Last Taken 04/21/21] insulin aspart U-100 12 unit SQ TIDCM 02/13/20 [History Last Taken 04/21/21] insulin glargine 28 unit SQ DAILY 02/13/20 [History Last Taken 04/21/21] lisinopril 5 mg PO DAILY 02/13/20 [History Last Taken 04/21/21] meloxicam 15 mg PO DAILY 02/13/20 [History Last Taken 04/21/21] omeprazole 20 mg PO DAILY 02/13/20 [History Last Taken 04/21/21] albuterol sulfate 90 mcg/actuation aerosol inhaler 90 mcg INHALATION PRN PRN 02/16/21 [History Last Taken Unknown] Allergy/AdvReac Type Severity Reaction Status Date / Time No Known Allergies Allergy Verified 04/21/21 15:27 Social History Smoking Status: Never smoker alcohol intake: current alcohol intake frequency: 0-2 drinks per day substance use type: marijuana what type of physical activity do you participate in: none Results Lab / Micro Data Result Diagrams: 04/21/21 15:35 04/21/21 15:35 Charges/Coding Addendum Addendum: Hospitalist note: I am seeing this patient in conjunction with Jaki Barber. I independently seen and examined the patient. History and physical, laboratory data and imaging studies reviewed and I concur with the above admission and work-up plan. Patient presented to the emergency because of chest pain, intermittent for the last 2 weeks, mainly exertional, associated with profuse sweating, occasionally radiates to the back and has been more constant over the last couple of days. Currently, he has no more chest pain. He denied associated shortness of breath, palpitation, dizziness or lightheadedness. In the emergency department, his blood pressure was elevated, other vital signs were stable. Routine blood work was remarkable for mild leukocytosis which is likely reactive, otherwise normal. EKG revealed normal sinus rhythm without evidence of acute skin changes. First troponin is negative. Chest x-ray showed no acute findings. He is being admitted for chest pain/angina pectoris for evaluation. - Physical Exam General: Alert, Oriented x3, Cooperative, No apparent distress. HEENT: Atraumatic, PERRLA, EOMI. Neck: Supple, No JVD, Negative Carotid Bruits, Trachea Midline, Thyroid Normal. Lungs: Clear to auscultation, Normal air movement, No rhonchi, No wheeze, No rales. Cardiovascular: Regular rate, Regular Rhythm, Normal S1, Normal S2, PMI Normal. Abdomen: Bowel Sounds Present, Soft, Non Tender, Non-Distended, No Hepato-splenomegaly. Extremities: No clubbing, No cyanosis, No edema Skin: No rashes, No breakdown Neurological: Cranial nerves are intact, neuro grossly intact. Assessment and plan: #1 chest pain/probable angina: Risk factors are obesity, hypertension diabetes as well as hyperlipidemia. He does have family history of premature CAD, his father because of massive heart attack at age of 43. Admit to PCU for observation, cardiac monitoring, serial cardiac enzymes, sublingual nitro as needed, start baby aspirin, continue statins, Lipitor profile, nuclear stress test tomorrow if cardiac enzymes are negative. #2 hypertension: Blood pressure was elevated in the ED. Continue home medications, start IV hydralazine as needed. #3 other chronic medical problems: Stable, continue current medications as above. This note was generated with Xenetaation software. It may contain incorrect words, spelling, and punctuation that were not noted in checking the note before signing. Visit Charges OBSV E&M: 09904 Initial observation care L3
[2021-04-21 19:41] LABS: Cholesterol 156 mg/dL (200); High Density Lipoprotein 35 mg/dL; Triglycerides 104 mg/dL; Troponin-I HS 101.9 pg/mL (3.0-78.5); Very Low Density Lipoprotein 21 mg/dL (5-40)
--- NOTE | 2021-04-21 19:51 | ECHOCS_ITS ---
Reason For Study: Chest Pain Procedure This was a 2D Doppler, Color Flow transthoracic echocardiogram. Contrast injection was performed. Exam performed portable in patient room. Left Ventricle Normal left ventricle. The estimated ejection fraction is EF 50-55 %. Right Ventricle Normal right ventricle. Normal systolic function. Atria Normal left atrium. Normal right atrium. Mitral Valve The mitral valve is structurally normal. No prolapse or stenosis seen. No mitral valve insufficiency. Tricuspid Valve Normal tricuspid valve. Aortic Valve Normal aortic valve. Pulmonic Valve The pulmonic valve is not well visualized. Great Vessels Normal aortic root. Pericardium/Pleural No pericardial effusion. Medication Diluted definity 3ml given slow IV push to enhance endocardial definition. MMode/2D Measurements & Calculations LVIDd: 5.4 cm IVSd: 1.2 cm Ao root diam: 3.1 cm LVIDs: 3.7 cm LVPWd: 1.3 cm RVDd: 3.6 cm FS: 31.2 % LAV(MOD-bp): 66.2 ml LVAd ap4: 39.1 cm2 SV(MOD-sp4): 87.5 ml LAV(MOD-bp) Indexed: 35.1 ml/m2 LVLd ap4: 8.5 cm LAV(MOD-sp2): 50.7 ml EDV(MOD-sp4): 148.0 ml LAV(MOD-sp4): 63.9 ml EDV(sp4-el): 152.5 ml LVAs ap4: 23.6 cm2 LVLs ap4: 7.6 cm ESV(MOD-sp4): 60.5 ml ESV(sp4-el): 62.4 ml EF(MOD-sp4): 59.1 % EF(sp4-el): 59.0 % SV(sp4-el): 90.0 ml LA A4 area: 23.2 cm2 LA dimension(2D): 4.1 cm RA A4 area: 15.9 cm2 Doppler Measurements & Calculations MV E max vini: 64.6 cm/sec Lat Peak E' Vini: 9.0 cm/sec Med Peak E' Vini: 5.7 cm/sec MV A max vini: 77.7 cm/sec E/E' lat: 7.1 E/E' med: 11.4 MV E/A: 0.83 Ao V2 max: 137.2 cm/sec LV V1 max: 100.1 cm/sec PA V2 max: 98.4 cm/sec Ao max P.5 mmHg LV V1 max P.0 mmHg Ao V2 mean: 93.1 cm/sec Ao mean P.8 mmHg Ao V2 VTI: 28.8 cm ECHO/Echo Complete W/ Contrast Interpretation Summary The estimated ejection fraction is EF 50-55 %. Apical hypokinesia Ordering Physician: Jaki Barber Referring Physician: Kirill Mills Performed By: Betsey Lopez, KASSI, RVT
--- NOTE | 2021-04-21 20:45 | EKG12_ITS ---
Test Reason : CP Blood Pressure : / mmHG Vent. Rate : 063 BPM Atrial Rate : 063 BPM P-R Int : 194 ms QRS Dur : 098 ms QT Int : 404 ms P-R-T Axes : 019 117 045 degrees QTc Int : 413 ms Normal sinus rhythm Inferior infarct , age undetermined Anterolateral infarct , age undetermined Abnormal ECG When compared with ECG of 22-APR-2021 04:41, MANUAL COMPARISON REQUIRED, DATA IS UNCONFIRMED Confirmed by TINA JUAREZ, DANIEL ([id number]), marketing editor OPAL GUERRERO ([id number]) on 04/25/2021 9:15:49 AM Referred By: JAMILAH Confirmed By:DANIEL WILDER MD
[2021-04-21 21:50] LABS: International Normalized Ratio 1.1; Prothrombin Time (Protime)PT. 13.5 SECONDS (11.7-14.9)
[2021-04-21 21:51] LABS: Partial Thromboplast Time 29.6 Seconds (24.1-36.2)
[2021-04-21] MEDS: HEPARIN/D5w 25,000 UNITS 25,000 UNITS/250 ML IV.SOLN. 8 UNITS IV (22:06)
[2021-04-21 22:15] LABS: Bedside Glucose 187 mg/dL (70-110)
[2021-04-21] MEDS: Insulin Lispro 100 UNIT/ML INSULN.PEN SC (22:15)
[2021-04-21] MEDS: 0.9% Saline Lock 10 ML Syringe IV (22:15)
[2021-04-22] VITALS (11 sets, daily range): BP systolic 144–169; BP diastolic 67–87; PULSE 57–76; RESP 16–18; TEMP 36.3–36.8; O2SAT 99–100
[2021-04-22 03:59] LABS: Absolute Lymphocyte Count 1.63 X10^3/uL (0.83-4.51); Absolute Neutrophil Count 9.4 X10^3/uL (2.0-7.7); Basophil# 0.06 X10^3/uL; Basophil% 0.5 % (0-1); Eosinophil# 0.38 X10^3/uL; Lymphocyte # 1.63 X10^3/ul (0.83-4.51); Lymphocyte % 12.9 % (19-41); Mean Corp Hgb Conc 33.3 g/dL (32-36); Mean Corpuscular Hgb 30.5 pg (27.0-32.0); Mean Corpuscular Volume 91.6 fL (80-94); Mean Platelet Vol. 10.9 fl (6.2-12.0); Monocyte# 1.11 X10^3/uL; Monocyte% 8.8 % (0-10); NRBC Flagged by Analyzer 0 % (0-5); Neutrophil # 9.41 X10^3/uL (2.7-7.7); Neutrophil % 74.3 % (47-70); Platelet Count 228 K/mm3 (150-450); RBC Distribution Width CV 12.8 % (11.6-14.6); RBC Distribution Width SD 42.7 fl (35.1-43.9); Red Blood Count 4.91 M/mm3 (4.6-6.2); White Blood Count 12.7 K/mm3 (4.4-11.0)
[2021-04-22 04:09] LABS: Partial Thromboplast Time 34.9 Seconds (24.1-36.2)
[2021-04-22 04:16] LABS: Anion Gap 5 (5-15); BUN 12 mg/dL (7-18); BUN/Creat Ratio 17.4 RATIO (10-20); Calcium,Total 8.8 mg/dL (8.5-10.1); Chloride 109 mmol/L (98-107); Creatinine, Serum 0.69 mg/dL (0.70-1.30); EST Glomerular Filtration Rate 132 mL/min (>60); Est Glom Filt Rate - Afr Amer 159 mL/min (>60); Estimated Creatinine Clearance 133.75 ml/min; Glucose 140 mg/dL (74-106); Sodium Level 141 mmol/L (136-145)
[2021-04-22] MEDS: Heparin Injection (Vial) 5,000 UNIT/ML VIAL IV ×2 (04:17→10:31)
--- NOTE | 2021-04-22 05:55 | EKG12_ITS ---
Test Reason : AM EKG Blood Pressure : / mmHG Vent. Rate : 066 BPM Atrial Rate : 066 BPM P-R Int : 194 ms QRS Dur : 100 ms QT Int : 410 ms P-R-T Axes : 026 123 053 degrees QTc Int : 429 ms Normal sinus rhythm Left posterior fascicular block Anterior infarct , age undetermined Abnormal ECG When compared with ECG of 21-APR-2021 19:34, MANUAL COMPARISON REQUIRED, DATA IS UNCONFIRMED Confirmed by TINA JUAREZ, DANIEL ([id number]), loan expeditor OPAL GUERRERO ([id number]) on 04/25/2021 9:18:09 AM Referred By: BRYANT Confirmed By:DANIEL WILDER MD
[2021-04-22] MEDS: Aspirin 81 MG TAB.CHEW PO (06:40)
[2021-04-22] MEDS: 0.9% Saline Lock 10 ML Syringe IV ×4 (06:46→20:09)
[2021-04-22 06:50] LABS: Bedside Glucose 174 mg/dL (70-110)
--- NOTE | 2021-04-22 10:04 | PCM.CONS.C ---
Assessment & Plan Assessment/Plan (1) NSTEMI (non-ST elevated myocardial infarction): PLAN: 45-year-old patient, resident of [facility] Presented to ED at [facility] complaining of retrosternal intermittent chest pain Evidently the symptoms has been ongoing for 2 weeks get worse over the last 2 days Described symptoms as retrosternal with radiation to the left arm and to the back. From review of history had a cardiac catheterization 10 years ago and has been on medical therapy. Patient risk factors include diabetes, hypertension, hyperlipidemia obesity and premature coronary artery disease father had massive WV at a younger age. Cardiac examination essentially normal He had elevated high sensitive troponins Recommendation plan; 1. We reviewed all the current medication will continue on aspirin, heparin infusion, atorvastatin, lisinopril and also he is on insulin and treatment for GERD with proton pump inhibitor 2. Review of bedside echocardiogram showed evidence of apical hypokinesia and in the EKG had a clear evidence of age-indeterminate anterior WV 3. I recommended to proceed with cardiac catheterization on Saturday patient is stable at present time he symptoms of chest pain resolved with resting and on cardiac cath lab radiology technologist his underlying rhythm is sinus with no evidence of PVCs or evidence of nonsustained ventricular tachycardia. 4. I explained in detail the cardiac care plan to the patient he agreed for cardiac catheterization on Saturday and will continue to monitor and follow-up clinically. (2) Hypertension: QUALIFIERS: Hypertension type: essential hypertension Qualified Code(s): I10 - Essential (primary) hypertension (3) Hyperlipidemia: QUALIFIERS: Hyperlipidemia type: mixed hyperlipidemia Qualified Code(s): E78.2 - Mixed hyperlipidemia (4) Diabetes mellitus type II, uncontrolled: (5) Gastroesophageal reflux: (6) Obesity: QUALIFIERS: Obesity type: due to excess calories Obesity classification: adult class 2 (BMI 35 - 39.9) Serious obesity comorbidity presence: with serious comorbidity Body mass index: BMI 35.0-35.9 Qualified Code(s): E66.01 - Morbid (severe) obesity due to excess calories; Z68.35 - Body mass index [BMI] 35.0-35.9, adult (7) Chest pain: HPI Consult Data Date of Consult: 04/22/21 HPI Narrative Reason for Consultation: Patient with non-ST elevation [place] HPI Narrative: MICHAEL NAVA, is a 45 M who presents [facility] Medical History (Updated 04/22/21 @ 10:[address] Jackelyn Isaac MD) Anxiety Cataract Depression Diabetes History of anxiety Kidney stones Substance abuse Home Medications atorvastatin 20 mg PO DAILY 02/13/20 [History Last Taken 2 Days Ago ~04/19/21] fluoxetine 40 mg PO DAILY 02/13/20 [History Last Taken 04/21/21] insulin aspart U-100 12 unit SQ TIDCM 02/13/20 [History Last Taken 04/21/21] insulin glargine 28 unit SQ DAILY 02/13/20 [History Last Taken 04/21/21] lisinopril 5 mg PO DAILY 02/13/20 [History Last Taken 04/21/21] meloxicam 15 mg PO DAILY 02/13/20 [History Last Taken 04/21/21] omeprazole 20 mg PO DAILY 02/13/20 [History Last Taken 04/21/21] albuterol sulfate 90 mcg/actuation aerosol inhaler 90 mcg INHALATION PRN PRN 02/16/21 [History Last Taken Unknown] Allergy/AdvReac Type Severity Reaction Status Date / Time No Known Allergies Allergy Verified 04/21/21 15:27 Social History Smoking Status: Never smoker alcohol intake: current alcohol intake frequency: 0-2 drinks per day substance use type: marijuana what type of physical activity do you participate in: none Physical Exam Narrative Patient seen evaluated at bedside his symptoms of chest pain resolved Patient alert orientated not in acute distress. The cardiac cath lab radiology technologist showed normal sinus and been stable hemodynamically Cardiovascular examination; S1-S2 is regular, there is no murmur no systolic or diastolic murmur, no pericardial rub. Chest examination; clear to auscultation bilaterally Examination of the abdomen soft no palpable mass Examination lower extremity no clubbing no cyanosis no lower extremity edema. Examination of central nervous system no focal neurological deficit. Objective Data Vital Signs: Vital Signs Temp Pulse Resp BP Pulse Ox 97.3 F L 62 16 165/80 H 100 04/22/21 06:34 04/22/21 07:00 04/22/21 06:34 04/22/21 06:34 04/22/21 06:34 Oxygen Delivery Method Room Air Weight: 154 lb 3.2 oz Body Mass Index (BMI) 21.4 Intake & Output: Intake and Output for Last 24 Hours 04/20/21 04/21/21 04/22/21 23:59 23:59 23:59 Intake Total 395 / 845 506.56 / 506.56 Balance 395 / 845 506.56 / 506.56 Lab / Micro Data Result Diagrams: 04/22/21 03:55 04/22/21 03:55 Labs: Laboratory Results - last 24 hr 04/21/21 04/21/21 04/21/21 15:35 15:35 16:10 WBC 13.9 H RBC 5.07 Hgb 15.7 Hct 46.8 MCV 92.3 MCH 31.0 MCHC 33.5 RDW Std Deviation 44.0 H RDW Coeff of Elias 13.0 Plt Count 263 MPV 11.4 Immature Gran % (Auto) 0.500 Neut % (Auto) 64.0 Lymph % (Auto) 21.9 [place] % (Auto) 9.7 Eos % (Auto) 3.3 Baso % (Auto) 0.6 Absolute Neuts (auto) 8.9 H Absolute Lymphs (auto) 3.05 Nucleated RBC % 0 PT INR APTT D-Dimer Quant (PE/DVT) <= 0.27 Sodium 139 Potassium 4.3 Chloride 106 Carbon Dioxide 29.0 Anion Gap 4 L BUN 13 Creatinine 0.89 Estim Creat Clear Calc 111.63 Est GFR (MDRD) Af Amer 118 Est GFR (MDRD) Non-Af 98 BUN/Creatinine Ratio 14.6 Glucose 155 H Calcium 9.4 Troponin I High Sens 48.4 Triglycerides Cholesterol LDL Cholesterol VLDL Cholesterol HDL Cholesterol POC Glucose 04/21/21 04/21/21 04/21/21 19:04 21:33 22:03 WBC RBC Hgb Hct MCV MCH MCHC RDW Std Deviation RDW Coeff of Elias Plt Count MPV Immature Gran % (Auto) Neut % (Auto) Lymph % (Auto) [place] % (Auto) Eos % (Auto) Baso % (Auto) Absolute Neuts (auto) Absolute Lymphs (auto) Nucleated RBC % PT 13.5 INR 1.1 APTT 29.6 D-Dimer Quant (PE/DVT) Sodium Potassium Chloride Carbon Dioxide Anion Gap BUN Creatinine Estim Creat Clear Calc Est GFR (MDRD) Af Amer Est GFR (MDRD) Non-Af BUN/Creatinine Ratio Glucose Calcium Troponin I High Sens 101.9 H* Triglycerides 104 Cholesterol 156 LDL Cholesterol 100 VLDL Cholesterol 21 HDL Cholesterol 35 L POC Glucose 187 H 04/21/21 04/22/21 04/22/21 23:13 03:55 03:55 WBC 12.7 H RBC 4.91 Hgb 15.0 Hct 45.0 MCV 91.6 MCH 30.5 MCHC 33.3 RDW Std Deviation 42.7 RDW Coeff of Elias 12.8 Plt Count 228 MPV 10.9 Immature Gran % (Auto) 0.500 Neut % (Auto) 74.3 H Lymph % (Auto) 12.9 L [place] % (Auto) 8.8 Eos % (Auto) 3.0 Baso % (Auto) 0.5 Absolute Neuts (auto) 9.4 H Absolute Lymphs (auto) 1.63 Nucleated RBC % 0 PT INR APTT D-Dimer Quant (PE/DVT) Sodium 141 Potassium 4.0 Chloride 109 H Carbon Dioxide 27.0 Anion Gap 5 BUN 12 Creatinine 0.69 L Estim Creat Clear Calc 133.75 Est GFR (MDRD) Af Amer 159 Est GFR (MDRD) Non-Af 132 BUN/Creatinine Ratio 17.4 Glucose 140 H Calcium 8.8 Troponin I High Sens 181.0 H* Triglycerides Cholesterol LDL Cholesterol VLDL Cholesterol HDL Cholesterol POC Glucose 04/22/21 04/22/21 03:55 06:45 WBC RBC Hgb Hct MCV MCH MCHC RDW Std Deviation RDW Coeff of Elias Plt Count MPV Immature Gran % (Auto) Neut % (Auto) Lymph % (Auto) [place] % (Auto) Eos % (Auto) Baso % (Auto) Absolute Neuts (auto) Absolute Lymphs (auto) Nucleated RBC % PT INR APTT 34.9 D-Dimer Quant (PE/DVT) Sodium Potassium Chloride Carbon Dioxide Anion Gap BUN Creatinine Estim Creat Clear Calc Est GFR (MDRD) Af Amer Est GFR (MDRD) Non-Af BUN/Creatinine Ratio Glucose Calcium Troponin I High Sens Triglycerides Cholesterol LDL Cholesterol VLDL Cholesterol HDL Cholesterol POC Glucose 174 H Cardiology Labs/Tests 04/21/21 15:35: WBC 13.9 H, RBC 5.07, Hgb 15.7, Hct 46.8, MCV 92.3, MCH 31.0, MCHC 33.5, Plt Count 263, MPV 11.4, Immature Gran % (Auto) 0.500, Neut % (Auto) 64.0, Lymph % (Auto) 21.9, [place] % (Auto) 9.7, Eos % (Auto) 3.3, Baso % (Auto) 0.6, Absolute Neuts (auto) 8.9 H, Nucleated RBC % 0 04/21/21 15:35: Sodium 139, Potassium 4.3, Chloride 106, Carbon Dioxide 29.0, Anion Gap 4 L, BUN 13, Creatinine 0.89, Est GFR (MDRD) Af Amer 118, Est GFR (MDRD) Non-Af 98, BUN/Creatinine Ratio 14.6, Glucose 155 H, Calcium 9.4 04/21/21 16:10: D-Dimer Quant (PE/DVT) <= 0.27 04/21/21 19:04: Triglycerides 104, Cholesterol 156, LDL Cholesterol 100, VLDL Cholesterol 21, HDL Cholesterol 35 L 04/21/21 21:33: PT 13.5, INR 1.1, APTT 29.6 04/22/21 03:55: WBC 12.7 H, RBC 4.91, Hgb 15.0, Hct 45.0, MCV 91.6, MCH 30.5, MCHC 33.3, Plt Count 228, MPV 10.9, Immature Gran % (Auto) 0.500, Neut % (Auto) 74.3 H, Lymph % (Auto) 12.9 L, [place] % (Auto) 8.8, Eos % (Auto) 3.0, Baso % (Auto) 0.5, Absolute Neuts (auto) 9.4 H, Nucleated RBC % 0 04/22/21 03:55: Sodium 141, Potassium 4.0, Chloride 109 H, Carbon Dioxide 27.0, Anion Gap 5, BUN 12, Creatinine 0.69 L, Est GFR (MDRD) Af Amer 159, Est GFR (MDRD) Non-Af 132, BUN/Creatinine Ratio 17.4, Glucose 140 H, Calcium 8.8 04/22/21 03:55: APTT 34.9 Rhythm: Normal sinus rhythm EKG: Anterior infarct age indeterminate Radiography Diagnostic Testing: Radiology Impression Chest X-Ray 04/21/21 15:54 IMPRESSION: Normal x-ray examination of the chest. Electronically Signed: Trenton Cherry MD at 16:58 EDT Tel , Service support ,
[2021-04-22 10:20] LABS: Partial Thromboplast Time 29.4 Seconds (24.1-36.2)
[2021-04-22] MEDS: FLUoxetine 20 MG Capsule 40 MG PO (10:32)
[2021-04-22] MEDS: Lisinopril 5 MG Tablet PO (10:32)
[2021-04-22] MEDS: Atorvastatin Calcium 20 MG Tablet PO (10:32)
[2021-04-22] MEDS: Pantoprazole Sodium 20 MG Tablet PO (10:32)
[2021-04-22] MEDS: Insulin Lispro 100 UNIT/ML INSULN.PEN SC ×2 (12:13→16:30)
[2021-04-22] MEDS: Insulin Lispro 100 UNIT/ML INSULN.PEN 12 UNIT SC ×2 (12:13→16:30)
[2021-04-22 12:25] LABS: Bedside Glucose 159 mg/dL (70-110)
--- NOTE | 2021-04-22 14:27 | PN.HOSP_ITS ---
Subjective Subjective Patient reports no current chest pain. He denies any current complaints. He is aware that the plan is for cardiac catheterization on Saturday unless he has unresolving symptoms. I did request that he let his nurse know immediately if he has any recurrence of his chest pain. Objective Data Objective Data Vital Signs: Vital Signs Temp Pulse Resp BP Pulse Ox 98.0 F 59 L 16 169/87 H 99 04/22/21 10:30 04/22/21 10:30 04/22/21 10:30 04/22/21 10:30 04/22/21 10:30 Oxygen Delivery Method Room Air Weight: 69.944 kg Body Mass Index (BMI) 21.4 Intake & Output: Intake and Output for Last 24 Hours 04/20/21 04/21/21 04/22/21 23:59 23:59 23:59 Intake Total 395 / 845 746.56 / 746.56 Balance 395 / 845 746.56 / 746.56 Lab / Micro Data Result Diagrams: 04/22/21 03:55 04/22/21 03:55 Labs: Laboratory Results - last 24 hr 04/21/21 04/21/21 04/21/21 15:35 15:35 16:10 WBC 13.9 H RBC 5.07 Hgb 15.7 Hct 46.8 MCV 92.3 MCH 31.0 MCHC 33.5 RDW Std Deviation 44.0 H RDW Coeff of Elias 13.0 Plt Count 263 MPV 11.4 Immature Gran % (Auto) 0.500 Neut % (Auto) 64.0 Lymph % (Auto) 21.9 [place] % (Auto) 9.7 Eos % (Auto) 3.3 Baso % (Auto) 0.6 Absolute Neuts (auto) 8.9 H Absolute Lymphs (auto) 3.05 Nucleated RBC % 0 PT INR APTT D-Dimer Quant (PE/DVT) <= 0.27 Sodium 139 Potassium 4.3 Chloride 106 Carbon Dioxide 29.0 Anion Gap 4 L BUN 13 Creatinine 0.89 Estim Creat Clear Calc 111.63 Est GFR (MDRD) Af Amer 118 Est GFR (MDRD) Non-Af 98 BUN/Creatinine Ratio 14.6 Glucose 155 H Calcium 9.4 Troponin I High Sens 48.4 Triglycerides Cholesterol LDL Cholesterol VLDL Cholesterol HDL Cholesterol POC Glucose 04/21/21 04/21/21 04/21/21 19:04 21:33 22:03 WBC RBC Hgb Hct MCV MCH MCHC RDW Std Deviation RDW Coeff of Elias Plt Count MPV Immature Gran % (Auto) Neut % (Auto) Lymph % (Auto) [place] % (Auto) Eos % (Auto) Baso % (Auto) Absolute Neuts (auto) Absolute Lymphs (auto) Nucleated RBC % PT 13.5 INR 1.1 APTT 29.6 D-Dimer Quant (PE/DVT) Sodium Potassium Chloride Carbon Dioxide Anion Gap BUN Creatinine Estim Creat Clear Calc Est GFR (MDRD) Af Amer Est GFR (MDRD) Non-Af BUN/Creatinine Ratio Glucose Calcium Troponin I High Sens 101.9 H* Triglycerides 104 Cholesterol 156 LDL Cholesterol 100 VLDL Cholesterol 21 HDL Cholesterol 35 L POC Glucose 187 H 04/21/21 04/22/21 04/22/21 23:13 03:55 03:55 WBC 12.7 H RBC 4.91 Hgb 15.0 Hct 45.0 MCV 91.6 MCH 30.5 MCHC 33.3 RDW Std Deviation 42.7 RDW Coeff of Elias 12.8 Plt Count 228 MPV 10.9 Immature Gran % (Auto) 0.500 Neut % (Auto) 74.3 H Lymph % (Auto) 12.9 L [place] % (Auto) 8.8 Eos % (Auto) 3.0 Baso % (Auto) 0.5 Absolute Neuts (auto) 9.4 H Absolute Lymphs (auto) 1.63 Nucleated RBC % 0 PT INR APTT D-Dimer Quant (PE/DVT) Sodium 141 Potassium 4.0 Chloride 109 H Carbon Dioxide 27.0 Anion Gap 5 BUN 12 Creatinine 0.69 L Estim Creat Clear Calc 133.75 Est GFR (MDRD) Af Amer 159 Est GFR (MDRD) Non-Af 132 BUN/Creatinine Ratio 17.4 Glucose 140 H Calcium 8.8 Troponin I High Sens 181.0 H* Triglycerides Cholesterol LDL Cholesterol VLDL Cholesterol HDL Cholesterol POC Glucose 04/22/21 04/22/21 04/22/21 03:55 06:45 10:00 WBC RBC Hgb Hct MCV MCH MCHC RDW Std Deviation RDW Coeff of Elias Plt Count MPV Immature Gran % (Auto) Neut % (Auto) Lymph % (Auto) [place] % (Auto) Eos % (Auto) Baso % (Auto) Absolute Neuts (auto) Absolute Lymphs (auto) Nucleated RBC % PT INR APTT 34.9 29.4 D-Dimer Quant (PE/DVT) Sodium Potassium Chloride Carbon Dioxide Anion Gap BUN Creatinine Estim Creat Clear Calc Est GFR (MDRD) Af Amer Est GFR (MDRD) Non-Af BUN/Creatinine Ratio Glucose Calcium Troponin I High Sens Triglycerides Cholesterol LDL Cholesterol VLDL Cholesterol HDL Cholesterol POC Glucose 174 H 04/22/21 12:12 WBC RBC Hgb Hct MCV MCH MCHC RDW Std Deviation RDW Coeff of Elias Plt Count MPV Immature Gran % (Auto) Neut % (Auto) Lymph % (Auto) [place] % (Auto) Eos % (Auto) Baso % (Auto) Absolute Neuts (auto) Absolute Lymphs (auto) Nucleated RBC % PT INR APTT D-Dimer Quant (PE/DVT) Sodium Potassium Chloride Carbon Dioxide Anion Gap BUN Creatinine Estim Creat Clear Calc Est GFR (MDRD) Af Amer Est GFR (MDRD) Non-Af BUN/Creatinine Ratio Glucose Calcium Troponin I High Sens Triglycerides Cholesterol LDL Cholesterol VLDL Cholesterol HDL Cholesterol POC Glucose 159 H Radiography Diagnostic Testing: Radiology Impression Chest X-Ray 04/21/21 15:54 IMPRESSION: Normal x-ray examination of the chest. Electronically Signed: Trenton Cherry MD at 16:58 EDT Tel , Service support , Echocardiogram 04/21/21 19:51 Interpretation Summary The estimated ejection fraction is EF 50-55 %. Apical hypokinesia Ordering Physician: Jaki Barber Referring Physician: Kirill Mills Performed By: Betsey Lopez, NEOCS, RVT Physical Exam Const alert, oriented x3, no apparent distress, average body habitus, healthy appearing and well nourished Constitutional Narrative: Middle-aged white male lying in bed, watching television and resting, appears comfortable Exam Limitations: no limitations HEENT head/scalp atraumatic Head and Scalp: normocephalic Neck supple Neck Narrative: Trachea midline Resp normal respiratory effort, no retractions, no use of accessory muscles and clear to auscultation bilaterally Auscultation: Negative for crackles, rales, rhonchi or wheezes Cardio regular rate, regular rhythm, S1 normal heart sound, S2 normal heart sound, no murmurs, no rub, no gallops, no clicks and no JVD GI normal to inspection, nondistended, normoactive bowel sounds, soft to palpation, non-tender and non-distended; Negative for hepatosplenomegaly Extremity normal to inspection, full ROM and no clubbing, cyanosis or edema Peripheral Pulses: Yes pulses 2+ throughout Neuro oriented x3, CN's II-XII intact bilaterally, moves all extremities and no focal motor deficits Sensorium / Orientation: awake and alert Speech: speech normal Psych affect normal Assessment & Plan Assessment/Plan (1) NSTEMI (non-ST elevated myocardial infarction): (2) Hypertension: QUALIFIERS: Hypertension type: essential hypertension Qualified Code(s): I10 - Essential (primary) hypertension (3) Hyperlipidemia: QUALIFIERS: Hyperlipidemia type: mixed hyperlipidemia Qualified Code(s): E78.2 - Mixed hyperlipidemia (4) Diabetes mellitus type II, uncontrolled: PLAN: Assessment: NSTEMI Leukocytosis-suspect reactive Hypertension Hyperlipidemia DM-2 uncontrolled GERD Depression Obesity Plan: -Cardiac enzymes increased -Plan is for cardiac catheterization on Saturday--> suspect patient will have disease based on history and symptoms -Echocardiogram done on 04/22/2021 shows an EF of 50 to 55% with apical hypokinesis -Continue aspirin, statin, lisinopril -Unable to start beta-flo secondary to bradycardia at baseline -Check a.m. TSH -As needed nitro Continue heparin drip -Hemoglobin A1c was 8.8--> patient reports he is just started with a asparagus cutter and that he has had some improvement in that he will follow up -Lipids were done and LDL is slightly over 100 therefore Lipitor was increased from 20 to 40 mg at at bedtime -Continue Protonix, fluoxetine, and home insulin -Accu-Cheks -Cardiac carb controlled diet Charges/Coding Visit Charges Inpatient E&M: 79963 Subs Hosp L2
--- NOTE | 2021-04-22 15:18 | CASEMGMT ---
According to the [facility] website, the following tertiary facilities are in network: [place], [facility], [facility], [facility], [place], [facility] and .
[2021-04-22 16:36] LABS: Bedside Glucose 161 mg/dL (70-110)
[2021-04-22 17:02] LABS: Partial Thromboplast Time 43.5 Seconds (24.1-36.2)
[2021-04-22] MEDS: hydrALAZINE 20 MG/ML Vial 10 MG IV (17:50)
[2021-04-22] MEDS: Ondansetron 4 MG/2 ML Vial IV (17:50)
[2021-04-22] MEDS: proCHLORPERazine 10 MG/2 ML Vial 5 MG IV (20:09)
[2021-04-22 20:31] LABS: Bedside Glucose 113 mg/dL (70-110)
[2021-04-22 23:55] LABS: Partial Thromboplast Time 51.1 Seconds (24.1-36.2)
[2021-04-23] VITALS (11 sets, daily range): BP systolic 123–159; BP diastolic 73–83; PULSE 56–70; RESP 16–18; TEMP 36.5–36.8; O2SAT 94–100
[2021-04-23] MEDS: HEPARIN/D5w 25,000 UNITS 25,000 UNITS/250 ML IV.SOLN. 14 UNITS IV (02:23)
[2021-04-23 07:45] LABS: Bedside Glucose 130 mg/dL (70-110)
[2021-04-23 07:48] LABS: Partial Thromboplast Time 58.9 Seconds (24.1-36.2)
[2021-04-23] MEDS: Aspirin 81 MG TAB.CHEW PO (08:39)
[2021-04-23] MEDS: Atorvastatin Calcium 40 MG Tablet PO (08:39)
[2021-04-23] MEDS: FLUoxetine 20 MG Capsule 40 MG PO (08:39)
[2021-04-23] MEDS: Pantoprazole Sodium 20 MG Tablet PO (08:39)
[2021-04-23] MEDS: Lisinopril 20 MG Tablet PO (08:41)
[2021-04-23] MEDS: Insulin Lispro 100 UNIT/ML INSULN.PEN 12 UNIT SC ×3 (09:57→17:17)
[2021-04-23 10:05] LABS: Bedside Glucose 138 mg/dL (70-110)
--- NOTE | 2021-04-23 11:20 | PN.CARD_ITS ---
Subjective Subjective Seen and evaluated today at bedside Comfortable no symptoms of chest pain reported. Objective Data Vital Signs: Vital Signs Temp Pulse Resp BP Pulse Ox 98.0 F 65 16 159/83 H 100 04/23/21 08:38 04/23/21 08:38 04/23/21 08:38 04/23/21 08:38 04/23/21 08:38 Oxygen Delivery Method Room Air Weight: 154 lb 3.2 oz Body Mass Index (BMI) 21.4 Intake & Output: Intake and Output for Last 24 Hours 04/21/21 04/22/21 04/23/21 23:59 23:59 23:59 Intake Total 395 / 845 1190.36 / 1530.36 569.64 / 569.64 Balance 395 / 845 1190.36 / 1530.36 569.64 / 569.64 Lab / Micro Data Result Diagrams: 04/22/21 03:55 04/22/21 03:55 Labs: Laboratory Results - last 24 hr 04/22/21 04/22/21 04/22/21 12:12 16:26 16:45 APTT 43.5 H POC Glucose 159 H 161 H 04/22/21 04/22/21 04/23/21 20:12 23:28 06:37 APTT 51.1 H POC Glucose 113 H 130 H 04/23/21 04/23/21 07:04 09:56 APTT 58.9 H POC Glucose 138 H Cardiology Labs/Tests 04/22/21 16:45: APTT 43.5 H 04/22/21 23:28: APTT 51.1 H 04/23/21 07:04: APTT 58.9 H Rhythm: Normal sinus rhythm EKG: Age indeterminate anterior DC, normal sinus rhythm ECHO: Apical hypokinesia with ejection fraction in the range of 50-55% Radiography Diagnostic Testing: Radiology Impression Echocardiogram 04/21/21 19:51 Interpretation Summary The estimated ejection fraction is EF 50-55 %. Apical hypokinesia Ordering Physician: Jaki Barber Referring Physician: Kirill Mills Performed By: Betsey Lopez RDCS, RVT Physical Exam Narrative Patient seen and examined and evaluated today at bedside Comfortable no symptoms of chest pain reported Review of the diagnostic cardiac sonographer showed normal sinus rhythm, no evidence of high- grade AV block or significant ventricular dysrhythmia Cardiovascular examination; S1-S2 regular there is no murmur, no systolic or diastolic murmur, no pericardial rub Chest examination; Normal bilateral air entry Examination of the abdomen soft Examination lower extremity no clubbing no cyanosis no lower extremity edema. Assessment & Plan Assessment/Plan (1) NSTEMI (non-ST elevated myocardial infarction): PLAN: 45-year-old patient presented with symptoms of chest pain With a clinical diagnosis of non-ST elevation myocardial infarction Symptoms of chest pain resolved on medical treatment Has evaluation in this admission by echocardiogram which showed apical hypokinesia with EF in the range of 50-55% No significant valvular problems noted Recommendation/plan; 1. Continue current treatment 2. I discussed the need of cardiac catheterization patient has been stable clinically he does not have any active symptoms of chest pain and will proceed with cardiac catheterization in the morning. Patient has multiple medical comorbidities and risk factors with hypertension, hyperlipidemia and diabetes mellitus. (2) Hypertension: QUALIFIERS: Hypertension type: essential hypertension Qualified Code(s): I10 - Essential (primary) hypertension (3) Hyperlipidemia: QUALIFIERS: Hyperlipidemia type: mixed hyperlipidemia Qualified Code(s): E78.2 - Mixed hyperlipidemia (4) Gastroesophageal reflux: (5) Diabetes mellitus type II, uncontrolled: (6) Obesity: QUALIFIERS: Obesity type: due to excess calories Obesity classification: adult class 2 (BMI 35 - 39.9) Serious obesity comorbidity presence: with serious comorbidity Body mass index: BMI 35.0-35.9 Qualified Code(s): E66.01 - Morbid (severe) obesity due to excess calories; Z68.35 - Body mass index [BMI] 35.0-35.9, adult
--- NOTE | 2021-04-23 12:00 | PCM.PN.HOSP ---
Subjective Subjective No new chest pain overnight. Patient denies shortness of breath. He states he slept okay. He is asking what time the cath will be tomorrow. I did warn him he be n.p.o. after midnight. Objective Data Objective Data Vital Signs: Vital Signs Temp Pulse Resp BP Pulse Ox 98.0 F 65 16 159/83 H 100 04/23/21 08:38 04/23/21 08:38 04/23/21 08:38 04/23/21 08:38 04/23/21 08:38 Oxygen Delivery Method Room Air Weight: 69.944 kg Body Mass Index (BMI) 21.4 Intake & Output: Intake and Output for Last 24 Hours 04/21/21 04/22/21 04/23/21 23:59 23:59 23:59 Intake Total 395 / 845 1190.36 / 1530.36 569.64 / 569.64 Balance 395 / 845 1190.36 / 1530.36 569.64 / 569.64 Lab / Micro Data Result Diagrams: 04/22/21 03:55 04/22/21 03:55 Labs: Laboratory Results - last 24 hr 04/22/21 04/22/21 04/22/21 12:12 16:26 16:45 APTT 43.5 H POC Glucose 159 H 161 H 04/22/21 04/22/21 04/23/21 20:12 23:28 06:37 APTT 51.1 H POC Glucose 113 H 130 H 04/23/21 04/23/21 07:04 09:56 APTT 58.9 H POC Glucose 138 H Radiography Diagnostic Testing: Radiology Impression Echocardiogram 04/21/21 19:51 Interpretation Summary The estimated ejection fraction is EF 50-55 %. Apical hypokinesia Ordering Physician: Jaki Barber Referring Physician: Kirill Mills Performed By: Roof, Betsey, RDCS, RVT Physical Exam Const alert, oriented x3, no apparent distress, average body habitus, healthy appearing and well nourished Constitutional Narrative: Middle-aged white male sitting up in a chair, watching television, appears comfortable, nontoxic Exam Limitations: no limitations HEENT head/scalp atraumatic Head and Scalp: normocephalic Neck Neck Narrative: Trachea midline Resp normal respiratory effort, no retractions, no use of accessory muscles and clear to auscultation bilaterally Auscultation: Negative for crackles, rales, rhonchi or wheezes Cardio regular rate, regular rhythm, S1 normal heart sound, S2 normal heart sound, no murmurs, no rub, no gallops, no clicks and no JVD GI normal to inspection, nondistended, normoactive bowel sounds, soft to palpation, non-tender and non-distended; Negative for hepatosplenomegaly Extremity normal to inspection, full ROM and no clubbing, cyanosis or edema Neuro oriented x3 Sensorium / Orientation: awake and alert Psych affect normal Assessment & Plan Assessment/Plan (1) NSTEMI (non-ST elevated myocardial infarction): (2) Hypertension: QUALIFIERS: Hypertension type: essential hypertension Qualified Code(s): I10 - Essential (primary) hypertension (3) Hyperlipidemia: QUALIFIERS: Hyperlipidemia type: mixed hyperlipidemia Qualified Code(s): E78.2 - Mixed hyperlipidemia (4) Diabetes mellitus type II, uncontrolled: PLAN: Assessment: NSTEMI Leukocytosis-suspect reactive Hypertension Hyperlipidemia DM-2 uncontrolled GERD Depression Obesity Plan: -Cardiac enzymes increased -Plan is for cardiac catheterization on Saturday--> suspect patient will have disease based on history and symptoms -Echocardiogram done on 04/22/2021 shows an EF of 50 to 55% with apical hypokinesis -Continue aspirin, statin, lisinopril -Unable to start beta-flo secondary to bradycardia at baseline -Check a.m. TSH -Increase lisinopril from 5 mg to 20 mg daily as blood pressures have been elevated -Patient with lower heart rates and some bradycardia therefore beta-fol has been held -As needed nitro -Continue heparin drip--> patient is therapeutic -Hemoglobin A1c was 8.8--> patient reports he is just started with a etl bi developer and that he has had some improvement in that he will follow up -Blood sugars are in goal ranges for the most part -Lipids were done and LDL is slightly over 100 therefore Lipitor was increased from 20 to 40 mg at at bedtime -Continue Protonix, fluoxetine, and home insulin -Accu-Cheks -Cardiac carb controlled diet Charges/Coding Visit Charges Inpatient E&M: 95082 Subs Hosp L2
[2021-04-23] MEDS: Insulin Lispro 100 UNIT/ML INSULN.PEN SC ×2 (12:24→20:30)
[2021-04-23 12:45] LABS: Bedside Glucose 254 mg/dL (70-110)
[2021-04-23 13:40] LABS: Partial Thromboplast Time 53.9 Seconds (24.1-36.2)
--- NOTE | 2021-04-23 15:03 | EKG12_ITS ---
Test Reason : CP ADMISSION Blood Pressure : / mmHG Vent. Rate : 049 BPM Atrial Rate : 049 BPM P-R Int : 192 ms QRS Dur : 102 ms QT Int : 458 ms P-R-T Axes : 029 120 075 degrees QTc Int : 413 ms Sinus bradycardia Left posterior fascicular block Anterior infarct , age undetermined Abnormal ECG When compared with ECG of 21-APR-2021 15:32, MANUAL COMPARISON REQUIRED, DATA IS UNCONFIRMED Confirmed by TINA JUAREZ, DANIEL ([id number]), medical editor OPAL GUERRERO ([id number]) on 04/25/2021 9:18:50 AM Referred By: BRYANT Confirmed By:DANIEL WILDER MD
[2021-04-23] MEDS: LORazepam 1 MG Tablet PO (15:17)
[2021-04-23 16:56] LABS: Bedside Glucose 114 mg/dL (70-110)
[2021-04-23] MEDS: HEPARIN/D5w 25,000 UNITS 25,000 UNITS/250 ML IV.SOLN. 15 UNITS IV (19:59)
[2021-04-23] MEDS: Isosorbide Mononitrate 30 MG Tablet PO (20:30)
[2021-04-23 20:36] LABS: Partial Thromboplast Time 52.8 Seconds (24.1-36.2)
[2021-04-23 21:10] LABS: Bedside Glucose 168 mg/dL (70-110)
[2021-04-24] VITALS (19 sets, daily range): BP systolic 113–147; BP diastolic 55–84; PULSE 53–81; RESP 14–20; TEMP 36.4–37.2; O2SAT 94–100
[2021-04-24 02:54] LABS: Absolute Lymphocyte Count 2.12 X10^3/uL (0.83-4.51); Absolute Neutrophil Count 5.5 X10^3/uL (2.0-7.7); Basophil# 0.06 X10^3/uL; Basophil% 0.6 % (0-1); Eosinophil# 0.11 X10^3/uL; Eosinophils% 1.2 % (0-5); Hematocrit 47.8 % (40-54); Lymphocyte # 2.12 X10^3/ul (0.83-4.51); Lymphocyte % 22.6 % (19-41); Mean Corp Hgb Conc 33.5 g/dL (32-36); Mean Corpuscular Hgb 30.8 pg (27.0-32.0); Mean Corpuscular Volume 91.9 fL (80-94); NRBC Flagged by Analyzer 0 % (0-5); Neutrophil # 5.54 X10^3/uL (2.7-7.7); Neutrophil % 59.3 % (47-70); Platelet Count 207 K/mm3 (150-450); RBC Distribution Width CV 12.8 % (11.6-14.6); RBC Distribution Width SD 43.2 fl (35.1-43.9); White Blood Count 9.4 K/mm3 (4.4-11.0)
[2021-04-24 03:06] LABS: Partial Thromboplast Time 79.2 Seconds (24.1-36.2)
[2021-04-24 03:18] LABS: Anion Gap 6 (5-15); BUN 14 mg/dL (7-18); BUN/Creat Ratio 14.9 RATIO (10-20); Calcium,Total 9.2 mg/dL (8.5-10.1); Chloride 103 mmol/L (98-107); Creatinine, Serum 0.94 mg/dL (0.70-1.30); EST Glomerular Filtration Rate 92 mL/min (>60); Est Glom Filt Rate - Afr Amer 111 mL/min (>60); Estimated Creatinine Clearance 98.18 ml/min; Glucose 130 mg/dL (74-106); Potassium 4.1 mmol/L (3.5-5.1); Sodium Level 137 mmol/L (136-145); Thyroid Stim Hormone (TSH) 3.87 uIU/mL (0.358-3.74)
--- NOTE | 2021-04-24 05:00 | EKG12_ITS ---
Test Reason : AM EKG Blood Pressure : / mmHG Vent. Rate : 062 BPM Atrial Rate : 062 BPM P-R Int : 180 ms QRS Dur : 098 ms QT Int : 400 ms P-R-T Axes : 026 144 038 degrees QTc Int : 406 ms Normal sinus rhythm Left posterior fascicular block Inferior infarct , age undetermined Anteroseptal infarct , age undetermined Abnormal ECG When compared with ECG of 23-APR-2021 15:29, MANUAL COMPARISON REQUIRED, DATA IS UNCONFIRMED Confirmed by TINA JUAREZ, DANIEL ([id number]), fan mail editor OPAL GUERRERO ([id number]) on 04/25/2021 9:14:56 AM Referred By: DR HURTADO Confirmed By:DANIEL WILDER MD
[2021-04-24] MEDS: Aspirin 81 MG TAB.CHEW PO (06:02)
[2021-04-24] MEDS: 0.9% Saline Lock 10 ML Syringe IV (06:03)
[2021-04-24] MEDS: Lisinopril 20 MG Tablet PO (06:03)
[2021-04-24 06:50] LABS: Bedside Glucose 160 mg/dL (70-110)
[2021-04-24] MEDS: 0.9% Normal Saline 1,000 ML 60 ML IV (08:00)
--- NOTE | 2021-04-24 09:57 | CL.D_ITS ---
Patient Name: MICHAEL NAVA Study Date: 04/24/2021 Performing: Eduardo Harrison MD Ht: 70.86 inches 180 cm : 1975 Wt: 252.01 lbs 114.31 kg Age: 45 Gender: male BSA: 2.32 PROCEDURE(S) PERFORMED [id number]/COR/LV CLINICAL PROFILE AND INDICATIONS Indications: Suspected CAD, ACS <= 24 hrs Heart Failure: None Stress/Imaging Stress/Image Study Performed: No CONCLUSIONS Severe disease involving a subtotally occluded left anterior descending artery with some right to lef t collaterals and a high-grade stenosis noted in the mid left circumflex artery. Moderate disease no steve in the right coronary artery. Mild left ventricular systolic dysfunction. RECOMMENDATIONS Referred for immediate PCI DESCRIPTION OF PROCEDURE The patient arrived to the procedure lab. The risks and benefits of the procedure as well as a full d escription of our services here and current unavailability of surgical backup were fully explained to the patient and/or their significant other prior to the catheterization. The Timeout was completed, verifying the correct patient and procedure. The patient's procedural site was prepped and draped in the usual fashion. Local anesthetic was given subcutaneously to right radial region with Lidocaine 2% . Using a modified Seldinger technique, arterial access was obtained via the right radial artery, a 6 Fr sheath was inserted. Right Coronary Artery selective angiography was then performed in multiple v iews using a 5 Fr. 4.0 [place] catheter. Left Coronary Artery selective angiography was performed in mu ltiple views using a 5 Fr. 4.0 [place] catheter. Left Ventriculography was performed in REA projection using a 5 Fr. [place] catheter. LV to AO pullback pressures were then recorded. CORONARY ANGIOGRAPHY DOMINANCE: Right Dominant LEFT HEART ASSESSMENT Left Ventricular Ejection Fraction: by LV Gram 50 % Anterior Hypokinesis - Mild Normal Left Ventricular systolic function LEFT MAIN: Angiographically normal LEFT ANTERIOR DESCENDING ARTERY: MID LAD: Subtotally occluded with distal vessel filling DIAGONAL 1: Ostial - 80 % Stenosis CIRCUMFLEX ARTERY: MID CIRC: 75 % Stenosis RIGHT CORONARY ARTERY: Diffusely diseased up to 30 % PROX RCA: 60 % Stenosis COLLATERAL FLOW: Collateral flow from Right to Left COMPLICATIONS PROCEDURE MEDICATIONS Versed 1 mg IV Fentanyl 50 mcg IV Versed 1 mg IV Fentanyl 25 mcg IV Oxygen: 2 L/min via nasal cannula Heparin given IA 04/24/2021 09:31:41 Heparin 5000 unit(s) IV 04/24/2021 09:53:46 Verapamil 2.5mg, Ntg 100mcgs, 3000 units of Heparin given IA 04/24/2021 09:31:41 SUMMARY OF HEMODYNAMIC DATA Time AIR REST ECG 09:16:43 AO 101/80 (90) SA 09:33:43 LV 92/9, 10 09:41:29 LV 106/4, 8 09:41:36 LV 104/4, 5 09:42:42 LVp 104/4, 5 09:42:47 AOp 109/77 (91) 09:42:52 AO 136/72 (95) 09:50:05 Signed By Eduardo Harrison MD On 04/24/2021 09:56:24 Eduardo Harrison MD
--- NOTE | 2021-04-24 10:19 | PN.CARD_ITS ---
Subjective Subjective Patient seen and evaluated. Underwent cardiac catheterization today Objective Data Vital Signs: Vital Signs Temp Pulse Resp BP Pulse Ox 97.5 F L 67 18 119/70 95 04/24/21 06:00 04/24/21 07:00 04/24/21 06:00 04/24/21 06:00 04/24/21 06:50 Oxygen Delivery Method Room Air Weight: 154 lb 3.2 oz Body Mass Index (BMI) 21.4 Intake & Output: Intake and Output for Last 24 Hours 04/22/21 04/23/21 04/24/21 23:59 23:59 23:59 Intake Total 1190.36 / 1530.36 1611.14 / 1731.14 266.83 / 266.83 Balance 1190.36 / 1530.36 1611.14 / 1731.14 266.83 / 266.83 Lab / Micro Data Result Diagrams: 04/24/21 02:47 04/24/21 02:47 Labs: Laboratory Results - last 24 hr 04/23/21 04/23/21 04/23/21 12:23 13:00 16:34 WBC RBC Hgb Hct MCV MCH MCHC RDW Std Deviation RDW Coeff of Elias Plt Count MPV Immature Gran % (Auto) Neut % (Auto) Lymph % (Auto) [place] % (Auto) Eos % (Auto) Baso % (Auto) Absolute Neuts (auto) Absolute Lymphs (auto) Nucleated RBC % APTT 53.9 H Sodium Potassium Chloride Carbon Dioxide Anion Gap BUN Creatinine Estim Creat Clear Calc Est GFR (MDRD) Af Amer Est GFR (MDRD) Non-Af BUN/Creatinine Ratio Glucose Calcium TSH POC Glucose 254 H 114 H 04/23/21 04/23/21 04/24/21 20:07 20:29 02:47 WBC 9.4 RBC 5.20 Hgb 16.0 Hct 47.8 MCV 91.9 MCH 30.8 MCHC 33.5 RDW Std Deviation 43.2 RDW Coeff of Elias 12.8 Plt Count 207 MPV 11.0 Immature Gran % (Auto) 0.300 Neut % (Auto) 59.3 Lymph % (Auto) 22.6 [place] % (Auto) 16.0 H Eos % (Auto) 1.2 Baso % (Auto) 0.6 Absolute Neuts (auto) 5.5 Absolute Lymphs (auto) 2.12 Nucleated RBC % 0 APTT 52.8 H Sodium Potassium Chloride Carbon Dioxide Anion Gap BUN Creatinine Estim Creat Clear Calc Est GFR (MDRD) Af Amer Est GFR (MDRD) Non-Af BUN/Creatinine Ratio Glucose Calcium TSH POC Glucose 168 H 04/24/21 04/24/21 04/24/21 02:47 02:47 06:33 WBC RBC Hgb Hct MCV MCH MCHC RDW Std Deviation RDW Coeff of Elias Plt Count MPV Immature Gran % (Auto) Neut % (Auto) Lymph % (Auto) [place] % (Auto) Eos % (Auto) Baso % (Auto) Absolute Neuts (auto) Absolute Lymphs (auto) Nucleated RBC % APTT 79.2 H Sodium 137 Potassium 4.1 Chloride 103 Carbon Dioxide 28.0 Anion Gap 6 BUN 14 Creatinine 0.94 Estim Creat Clear Calc 98.18 Est GFR (MDRD) Af Amer 111 Est GFR (MDRD) Non-Af 92 BUN/Creatinine Ratio 14.9 Glucose 130 H Calcium 9.2 TSH 3.87 H POC Glucose 160 H Cardiology Labs/Tests 04/23/21 13:00: APTT 53.9 H 04/23/21 20:07: APTT 52.8 H 04/24/21 02:47: WBC 9.4, RBC 5.20, Hgb 16.0, Hct 47.8, MCV 91.9, MCH 30.8, MCHC 33.5, Plt Count 207, MPV 11.0, Immature Gran % (Auto) 0.300, Neut % (Auto) 59.3, Lymph % (Auto) 22.6, [place] % (Auto) 16.0 H, Eos % (Auto) 1.2, Baso % (Auto) 0.6, Absolute Neuts (auto) 5.5, Nucleated RBC % 0 04/24/21 02:47: Sodium 137, Potassium 4.1, Chloride 103, Carbon Dioxide 28.0, Anion Gap 6, BUN 14, Creatinine 0.94, Est GFR (MDRD) Af Amer 111, Est GFR (MDRD) Non-Af 92, BUN/Creatinine Ratio 14.9, Glucose 130 H, Calcium 9.2 04/24/21 02:47: APTT 79.2 H Rhythm: EKG: ECHO: Stress Test: Cardiac Cath: PCI: CT Surgery: Holter monitor: EPS: PPM: CXR: Chest CT Scan: Physical Exam Const oriented x3 and healthy appearing Orientation / Consciousness: awake HEENT normocephalic Eyes PERRL and conjunctivae normal Neck supple, no JVD and no carotid bruits Chest inspection of chest normal Resp normal respiratory effort and clear to auscultation bilaterally Cardio Palpation: normal PMI Rate: regular rate Rhythm: regular rhythm Heart Sounds: S1 normal and S2 normal Peripheral Pulses: pulses 2+ throughout GI normal to inspection, nondistended, normoactive bowel sounds Extremity normal to inspection and no clubbing, cyanosis or edema Psych mental status grossly normal Assessment & Plan Assessment/Plan (1) NSTEMI (non-ST elevated myocardial infarction): PLAN: He had set sustained a non-ST elevation myocardial infarction underwent cardiac catheterization which demonstrated a subtotal left anterior descending artery and moderately severe disease noted in the circumflex artery and moderate disease in the right coronary artery. Attempts will be made to angioplasty and stents the left anterior descending artery and circumflex artery. Depending on the findings further recommendations will be made. (2) Hypertension: QUALIFIERS: Hypertension type: essential hypertension Qualified Code(s): I10 - Essential (primary) hypertension PLAN: He will continue with aggressive blood pressure medication. (3) Hyperlipidemia: QUALIFIERS: Hyperlipidemia type: mixed hyperlipidemia Qualified Code(s): E78.2 - Mixed hyperlipidemia PLAN: Aggressive risk moderate will be undertaken with high intensity statin.
--- NOTE | 2021-04-24 11:00 | CASEMGMT ---
RN CM Face to Face with patient for initial transition planning/care coordination assessment. RN CM introduced self and role at [facility]. Patient lying in bed, alert and oriented, mother at bedside. Patient willing to participate in assessment and is able to answer all questions appropriately. Care providers, pharmacy, and demographics verified. Patient wishes to discharge home, denies need for home health at this time. Patient states he has no further needs or concerns at this time. CM to follow for discharge planning needs that may arise. PCP: Gene Specialists: [facility] technology engineer [facility] Pharmacy: [facility] Insurance: [employer] Prescription Benefit: yes Living Will/HPOA: none LNOK: mother Living Arrangements: Patient lives with mother in a mobile home with 4-5 steps with railing. Patient is independent at home. Transportation: self/mother DME/HHC: patient has glucometer and testing supplies at home. Patient denies previous HHC. Disposition Plan: Patient to discharge home with family support and follow-up plans in place. Shayla ORNELAS, RN, CM
[2021-04-24 12:00] LABS: Bedside Glucose 142 mg/dL (70-110)
--- NOTE | 2021-04-24 12:00 | CASEMGMT ---
Palliative screening tool completed for [employer]. Patient does not meets criteria at this time.
--- NOTE | 2021-04-24 12:14 | EKG12_ITS ---
Test Reason : AM EKG Blood Pressure : / mmHG Vent. Rate : 050 BPM Atrial Rate : 050 BPM P-R Int : 192 ms QRS Dur : 102 ms QT Int : 434 ms P-R-T Axes : 030 112 066 degrees QTc Int : 395 ms Sinus bradycardia Left posterior fascicular block Anteroseptal infarct , age undetermined Abnormal ECG Confirmed by GITA JUAREZ, ROCIO ([id number]), photo editor OPAL GUERRERO ([id number]) on 04/26/2021 10:44:24 AM Referred By: JAMILAH Confirmed By:ROCIO PELAYO MD
--- NOTE | 2021-04-24 12:38 | PCM.PN.HOSP ---
Subjective Subjective Seen and examined. Patient had cardiac cath and PCI of the LAD and left circumflex. Patient states after hospital admission he had mild chest pain once when he got upset. Objective Data Objective Data Vital Signs: Vital Signs Temp Pulse Resp BP Pulse Ox 97.5 F L 62 19 H 119/76 97 04/24/21 06:00 04/24/21 12:01 04/24/21 12:01 04/24/21 12:01 04/24/21 12:01 Oxygen Delivery Method Room Air Weight: 154 lb 3.2 oz Body Mass Index (BMI) 21.4 Intake & Output: Intake and Output for Last 24 Hours 04/22/21 04/23/21 04/24/21 23:59 23:59 23:59 Intake Total 1190.36 / 1530.36 1611.14 / 1731.14 540.83 / 540.83 Balance 1190.36 / 1530.36 1611.14 / 1731.14 540.83 / 540.83 Lab / Micro Data Result Diagrams: 04/24/21 12:45 04/24/21 02:47 Labs: Laboratory Results - last 24 hr 04/23/21 04/23/21 04/23/21 12:23 13:00 16:34 WBC RBC Hgb Hct MCV MCH MCHC RDW Std Deviation RDW Coeff of Elias Plt Count MPV Immature Gran % (Auto) Neut % (Auto) Lymph % (Auto) [place] % (Auto) Eos % (Auto) Baso % (Auto) Absolute Neuts (auto) Absolute Lymphs (auto) Nucleated RBC % APTT 53.9 H Sodium Potassium Chloride Carbon Dioxide Anion Gap BUN Creatinine Estim Creat Clear Calc Est GFR (MDRD) Af Amer Est GFR (MDRD) Non-Af BUN/Creatinine Ratio Glucose Calcium TSH POC Glucose 254 H 114 H 04/23/21 04/23/21 04/24/21 20:07 20:29 02:47 WBC 9.4 RBC 5.20 Hgb 16.0 Hct 47.8 MCV 91.9 MCH 30.8 MCHC 33.5 RDW Std Deviation 43.2 RDW Coeff of Elias 12.8 Plt Count 207 MPV 11.0 Immature Gran % (Auto) 0.300 Neut % (Auto) 59.3 Lymph % (Auto) 22.6 [place] % (Auto) 16.0 H Eos % (Auto) 1.2 Baso % (Auto) 0.6 Absolute Neuts (auto) 5.5 Absolute Lymphs (auto) 2.12 Nucleated RBC % 0 APTT 52.8 H Sodium Potassium Chloride Carbon Dioxide Anion Gap BUN Creatinine Estim Creat Clear Calc Est GFR (MDRD) Af Amer Est GFR (MDRD) Non-Af BUN/Creatinine Ratio Glucose Calcium TSH POC Glucose 168 H 04/24/21 04/24/21 04/24/21 02:47 02:47 06:33 WBC RBC Hgb Hct MCV MCH MCHC RDW Std Deviation RDW Coeff of Elias Plt Count MPV Immature Gran % (Auto) Neut % (Auto) Lymph % (Auto) [place] % (Auto) Eos % (Auto) Baso % (Auto) Absolute Neuts (auto) Absolute Lymphs (auto) Nucleated RBC % APTT 79.2 H Sodium 137 Potassium 4.1 Chloride 103 Carbon Dioxide 28.0 Anion Gap 6 BUN 14 Creatinine 0.94 Estim Creat Clear Calc 98.18 Est GFR (MDRD) Af Amer 111 Est GFR (MDRD) Non-Af 92 BUN/Creatinine Ratio 14.9 Glucose 130 H Calcium 9.2 TSH 3.87 H POC Glucose 160 H 04/24/21 11:52 WBC RBC Hgb Hct MCV MCH MCHC RDW Std Deviation RDW Coeff of Elias Plt Count MPV Immature Gran % (Auto) Neut % (Auto) Lymph % (Auto) [place] % (Auto) Eos % (Auto) Baso % (Auto) Absolute Neuts (auto) Absolute Lymphs (auto) Nucleated RBC % APTT Sodium Potassium Chloride Carbon Dioxide Anion Gap BUN Creatinine Estim Creat Clear Calc Est GFR (MDRD) Af Amer Est GFR (MDRD) Non-Af BUN/Creatinine Ratio Glucose Calcium TSH POC Glucose 142 H Physical Exam Narrative Physical exam General: Alert, Oriented x3, Cooperative HEENT: Atraumatic, PERRLA, EOMI, Normocephalic Oral: No Gingival or Mucosal Lesions/ Ulcerations Neck: Supple, No JVD, Negative Carotid Bruits Lungs: Air entry diminished in bilateral lung bases. No crepitation/rhonchi Cardiovascular: Regular rate, Regular Rhythm, Normal S1, Normal S2, No murmurs Abdomen: Bowel Sounds Present, Soft, Non Tender, Non-Distended : No renal angle tenderness. No suprapubic tenderness. Extremities: Right radial artery access, no hematoma. No edema, Capillary Refill Less than 3 Seconds Skin: No rashes, No breakdown Musculoskeletal: No Tenderness to Palpation of Joints or Extremities Neurological: Cranial nerves II-XII grossly intact, Deep Tendon Reflexes 2+/4 and Symmetrical, Neuro grossly intact Psych/Mental Status: Normal Affect, Appropriate. Assessment & Plan Assessment/Plan (1) NSTEMI (non-ST elevated myocardial infarction): PLAN: 1. Non-STEMI: Troponins were elevated. Patient cardiac cath in the morning and found to have ostial LAD 80%, mid LAD subtotally occluded with distal vessel filling, mid circumflex 75% stenosis, proximal RCA 60%, at rest diffusely diseased up to 30%. EF 50% with anterior hypokinesis. Patient had PCI of LAD and mid circumflex. Continue aspirin statin and lisinopril. Fasting profile, LDL 100, HDL 35, TG 104. Patient heart rate sinus tach rate around 60 therefore beta-flo not started. TSH 3.87 in normal range. Repeat thyroid test after 3-6 months. 2. Diabetes mellitus type 2: A1c 8.8. 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 Blood sugar 142. On home dose of insulin 3. Other chronic comorbidities include GERD, obesity: Patient on Protonix, fluoxetine. 4. VTE prophylaxis: Resume prophylaxis after 24 hours of PCI.
[2021-04-24] MEDS: 0.9% Normal Saline 1,000 ML 100 ML IV (12:45)
[2021-04-24] MEDS: TICAGRELOR 90 MG TABLET 180 MG PO (13:00)
[2021-04-24] MEDS: Atorvastatin Calcium 40 MG Tablet PO (13:00)
[2021-04-24 13:01] LABS: Hemoglobin 15.8 g/dL (13.0-16.5); Mean Corp Hgb Conc 34.3 g/dL (32-36); Mean Corpuscular Hgb 30.7 pg (27.0-32.0); Mean Corpuscular Volume 89.3 fL (80-94); Mean Platelet Vol. 11.1 fl (6.2-12.0); Platelet Count 236 K/mm3 (150-450); RBC Distribution Width CV 12.7 % (11.6-14.6); RBC Distribution Width SD 41.8 fl (35.1-43.9); Red Blood Count 5.15 M/mm3 (4.6-6.2); White Blood Count 11.7 K/mm3 (4.4-11.0)
[2021-04-24] MEDS: Pantoprazole Sodium 20 MG Tablet PO (13:01)
[2021-04-24] MEDS: FLUoxetine 20 MG Capsule 40 MG PO (13:01)
[2021-04-24] MEDS: Insulin Lispro 100 UNIT/ML INSULN.PEN 12 UNIT SC ×2 (13:02→17:42)
--- NOTE | 2021-04-24 13:59 | CRPHASE1_ITS ---
Patient Communication PHII Cardiac Rehab Discussed with Patient:: Yes Guide to Cardiac Rehab Given to Patient:: Yes Cardiac Rehab Facility Choice List Given to Patient:: Yes Choice Program [facility] CR PHII:: Communication Given to CR Choice Program Other:: Communication Given to CR Cook Candy:: Aj Garcia Refer Phase II Cardiac Rehab:: Yes Sessions:: 36 sessions - 3 days/wk, 12 weeks Cardiac Rehabilitation Info Cardiac Rehabilitation Program Information: Cardiac Rehabilitation is important for patients like you who are recovering from a heart problem. Cardiac rehabilitation programs are recognized as integral to the continued care of the patient with coronary heart disease. The cardiac rehabilitation program is designed to optimize a patient's physical, psychological, and social functioning. Health direct care worker work in cardiac rehabilitation programs and assist you with getting the treatments you need to get stronger and healthier - like exercise, healthy eating habits, and medications. Cardiac rehabilitation has been show to help people with heart problems live longer and have better life enjoyment than people who do not go to cardiac rehabilitation. Please contact the Cardiac Rehabilitation Program at [facility] at in two weeks if you have not heard from them.
--- NOTE | 2021-04-24 14:01 | CRPH1.INSTRU ---
General Education CAD and cardiac anatomy and function:: Patient communicates acknowledgment Explanation of diagnoses and procedures:: Patient communicates acknowledgment Sign/Symptoms of VA:: Patient communicates acknowledgment Antiplatelet therapy: Patient communicates acknowledgment Smoking Patient Nicotine/Smoking Risk Factors Are:: Never smoked Dyslipidemia Patient Dyslipidemia Risk Factors Are:: Triglycerides, HDL, LDL Recommendations Include:: Lipid profile provided, Lipid profile not available, Reviewed NCEP/ATP guidelines, Therapeutic Lifestyle Change dietary guidelines Dyslipidemia Response Code:: Patient communicates acknowledgment Overweight/Obesity Patient Overweight/Obesity Risk Factors Are:: Obesity - > or = 30 Recommendations Include:: Weight loss of 5-10%, Reduced calorie diet, Exercise 5-7 times/week Overweight/Obesity:: Patient communicates acknowledgment Hypertension Recommendations Include:: Maintain BP <130/85, DASH dietary guidelines, Decrease/maintain normal body weight, Moderation of ETOH Hypertension:: Patient communicates acknowledgment Diabetes Patient Diabetes Risk Factors Are:: No documented hx of diabetes Metabolic Syndrome Patient Metabolic Syndrome Risk Factors Are [3 of 5]:: Fasting blood sugar > 100 mg/dL, Waist circumference > 35 [female] or 40 [male], Hypertension, Low HDL <40 [male] or < 50 [female] Recommendations Include:: Reinforce compliance to risk factor modifications, Encouraged follow-up with Primary Care Physician Metabolic Syndrome Response Code:: Patient communicates acknowledgment Sedentary Patient Sedentary Risk Factors Are:: Lack of regular exercise Recommendations Include:: Aerobic exercise 5-7 times/week for 20-30 minutes continuously, Benefits of regular exercise, Discussed home walking program, Monitored Outpatient Cardiac Rehab Sedentary Response Code:: Patient communicates acknowledgment Stress Recommendations Include:: Identification of stressors, and assessment of coping skills, Stress management techniques Stress Response Code:: Patient communicates acknowledgment
[2021-04-24 18:06] LABS: Bedside Glucose 125 mg/dL (70-110)
[2021-04-24] MEDS: TICAGRELOR 90 MG TABLET PO (22:35)
[2021-04-24 22:41] LABS: Bedside Glucose 143 mg/dL (70-110)
[2021-04-25 02:33] VITALS: BP 139/77; PULSE 60; RESP 16; TEMP 36.9; O2SAT 100
[2021-04-25 03:00] VITALS: PULSE 47
[2021-04-25 05:56] LABS: Hematocrit 47.1 % (40-54); Hemoglobin 15.6 g/dL (13.0-16.5); Mean Corp Hgb Conc 33.1 g/dL (32-36); Mean Corpuscular Hgb 30.3 pg (27.0-32.0); Mean Corpuscular Volume 91.5 fL (80-94); Mean Platelet Vol. 11.3 fl (6.2-12.0); Platelet Count 206 K/mm3 (150-450); RBC Distribution Width CV 12.6 % (11.6-14.6); RBC Distribution Width SD 42.4 fl (35.1-43.9); Red Blood Count 5.15 M/mm3 (4.6-6.2); White Blood Count 10.1 K/mm3 (4.4-11.0)
[2021-04-25 06:32] LABS: AST(SGOT) 19 U/L (15-37); Alanine Aminotransfer ALT/SGPT 30 U/L (16-61); Albumin, Serum 3.6 g/dL (3.2-5.0); Alkaline Phosphatase 108 U/L (45-117); Anion Gap 8 (5-15); BUN 13 mg/dL (7-18); BUN/Creat Ratio 16.8 RATIO (10-20); Calcium,Total 8.9 mg/dL (8.5-10.1); Chloride 104 mmol/L (98-107); Creatinine, Serum 0.77 mg/dL (0.70-1.30); EST Glomerular Filtration Rate 115 mL/min (>60); Est Glom Filt Rate - Afr Amer 139 mL/min (>60); Estimated Creatinine Clearance 119.85 ml/min; Globulin 3.7 g/dL (2.2-4.2); Glucose 128 mg/dL (74-106); Protein, Total 7.3 g/dL (6.4-8.2); Sodium Level 138 mmol/L (136-145)
--- NOTE | 2021-04-25 06:39 | PCM.PN.CARD ---
Subjective Subjective Patient seen and evaluated. Appears to be doing well. No complaints Objective Data Vital Signs: Vital Signs Temp Pulse Resp BP Pulse Ox 98.4 F 47 L 16 139/77 H 100 04/25/21 02:33 04/25/21 03:00 04/25/21 02:33 04/25/21 02:33 04/25/21 02:33 Oxygen Delivery Method Room Air Weight: 154 lb 3.2 oz Body Mass Index (BMI) 21.4 Intake & Output: Intake and Output for Last 24 Hours 04/23/21 04/24/21 04/25/21 23:59 23:59 23:59 Intake Total 1611.14 / 1731.14 1337.35 / 1337.35 600 / 600 Balance 1611.14 / 1731.14 1337.35 / 1337.35 600 / 600 Lab / Micro Data Result Diagrams: 04/25/21 04:58 04/25/21 04:58 Labs: Laboratory Results - last 24 hr 04/24/21 04/24/21 04/24/21 06:33 11:52 12:45 WBC 11.7 H RBC 5.15 Hgb 15.8 Hct 46.0 MCV 89.3 MCH 30.7 MCHC 34.3 RDW Std Deviation 41.8 RDW Coeff of Elias 12.7 Plt Count 236 MPV 11.1 Sodium Potassium Chloride Carbon Dioxide Anion Gap BUN Creatinine Estim Creat Clear Calc Est GFR (MDRD) Af Amer Est GFR (MDRD) Non-Af BUN/Creatinine Ratio Glucose Calcium Total Bilirubin AST ALT Alkaline Phosphatase Total Protein Albumin Globulin Albumin/Globulin Ratio POC Glucose 160 H 142 H 04/24/21 04/24/21 04/25/21 17:39 22:34 04:58 WBC 10.1 RBC 5.15 Hgb 15.6 Hct 47.1 MCV 91.5 MCH 30.3 MCHC 33.1 RDW Std Deviation 42.4 RDW Coeff of Elias 12.6 Plt Count 206 MPV 11.3 Sodium Potassium Chloride Carbon Dioxide Anion Gap BUN Creatinine Estim Creat Clear Calc Est GFR (MDRD) Af Amer Est GFR (MDRD) Non-Af BUN/Creatinine Ratio Glucose Calcium Total Bilirubin AST ALT Alkaline Phosphatase Total Protein Albumin Globulin Albumin/Globulin Ratio POC Glucose 125 H 143 H 04/25/21 04:58 WBC RBC Hgb Hct MCV MCH MCHC RDW Std Deviation RDW Coeff of Elias Plt Count MPV Sodium 138 Potassium 4.0 Chloride 104 Carbon Dioxide 26.0 Anion Gap 8 BUN 13 Creatinine 0.77 Estim Creat Clear Calc 119.85 Est GFR (MDRD) Af Amer 139 Est GFR (MDRD) Non-Af 115 BUN/Creatinine Ratio 16.8 Glucose 128 H Calcium 8.9 Total Bilirubin 1.10 H AST 19 ALT 30 Alkaline Phosphatase 108 Total Protein 7.3 Albumin 3.6 Globulin 3.7 Albumin/Globulin Ratio 1.0 POC Glucose Cardiology Labs/Tests 04/24/21 12:45: WBC 11.7 H, RBC 5.15, Hgb 15.8, Hct 46.0, MCV 89.3, MCH 30.7, MCHC 34.3, Plt Count 236, MPV 11.1 04/25/21 04:58: WBC 10.1, RBC 5.15, Hgb 15.6, Hct 47.1, MCV 91.5, MCH 30.3, MCHC 33.1, Plt Count 206, MPV 11.3 04/25/21 04:58: Sodium 138, Potassium 4.0, Chloride 104, Carbon Dioxide 26.0, Anion Gap 8, BUN 13, Creatinine 0.77, Est GFR (MDRD) Af Amer 139, Est GFR (MDRD) Non-Af 115, BUN/Creatinine Ratio 16.8, Glucose 128 H, Calcium 8.9, Total Bilirubin 1.10 H Rhythm: EKG: ECHO: Stress Test: Cardiac Cath: PCI: CT Surgery: Holter monitor: EPS: PPM: CXR: Chest CT Scan: Physical Exam Const oriented x3 and healthy appearing Orientation / Consciousness: awake HEENT normocephalic Eyes PERRL and conjunctivae normal Neck supple, no JVD and no carotid bruits Chest inspection of chest normal Resp normal respiratory effort and clear to auscultation bilaterally Cardio Palpation: normal PMI Rate: regular rate Rhythm: regular rhythm Heart Sounds: S1 normal and S2 normal Peripheral Pulses: pulses 2+ throughout GI normal to inspection, nondistended, normoactive bowel sounds Extremity normal to inspection and no clubbing, cyanosis or edema Psych mental status grossly normal Assessment & Plan Assessment/Plan (1) NSTEMI (non-ST elevated myocardial infarction): PLAN: He had set sustained a non-ST elevation myocardial infarction underwent cardiac catheterization which demonstrated a subtotal left anterior descending artery and moderately severe disease noted in the circumflex artery and moderate disease in the right coronary artery. He underwent successful angioplasty and stenting of the left anterior descending artery as well as the circumflex artery with good results. Patient will be continued on the current medical therapy discharge and follow-up in cardiac rehabilitation in the office. (2) Hypertension: QUALIFIERS: Hypertension type: essential hypertension Qualified Code(s): I10 - Essential (primary) hypertension PLAN: He will continue with aggressive blood pressure medication. (3) Hyperlipidemia: QUALIFIERS: Hyperlipidemia type: mixed hyperlipidemia Qualified Code(s): E78.2 - Mixed hyperlipidemia PLAN: Aggressive risk moderate will be undertaken with high intensity statin.
[2021-04-25 07:24] VITALS: O2SAT 98
[2021-04-25 08:00] VITALS: PULSE 67
[2021-04-25 08:15] VITALS: BP 146/76; PULSE 63; RESP 18; TEMP 36.7; O2SAT 100
[2021-04-25] MEDS: Aspirin 81 MG TAB.CHEW PO (08:22)
[2021-04-25] MEDS: Lisinopril 20 MG Tablet PO (08:22)
[2021-04-25] MEDS: Insulin Lispro 100 UNIT/ML INSULN.PEN 12 UNIT SC (08:26)
[2021-04-25] MEDS: TICAGRELOR 90 MG TABLET PO (08:28)
[2021-04-25] MEDS: Isosorbide Mononitrate 30 MG Tablet PO (08:28)
[2021-04-25] MEDS: Atorvastatin Calcium 40 MG Tablet PO (08:29)
[2021-04-25] MEDS: FLUoxetine 20 MG Capsule 40 MG PO (08:29)
[2021-04-25] MEDS: Pantoprazole Sodium 20 MG Tablet PO (08:29)
--- NOTE | 2021-04-25 10:00 | EKG12_ITS ---
Test Reason : POST PCI Blood Pressure : / mmHG Vent. Rate : 056 BPM Atrial Rate : 056 BPM P-R Int : 188 ms QRS Dur : 100 ms QT Int : 446 ms P-R-T Axes : 015 120 038 degrees QTc Int : 430 ms Sinus bradycardia Left posterior fascicular block Anteroseptal infarct , age undetermined T wave abnormality, consider lateral ischemia Abnormal ECG Confirmed by GITA JUAREZ, ROCIO ([id number]), editor department OPAL GUERRERO ([id number]) on 04/26/2021 10:45:58 AM Referred By: CAITLYN Confirmed By:ROCIO PELAYO MD
[2021-04-25 10:35] LABS: Bedside Glucose 144 mg/dL (70-110)
--- NOTE | 2021-04-25 10:42 | PCM.DC ---
Discharge Instructions Diet Discharge Diet: Low fat / Low cholesterol and 1800 Calorie Control Diet Activity Discharge Activity: Return to Normal Activity Additional Activity Instructions:: Do not use right hand for heavy pulling or pushing for 2 days Dressing / Incision Call your doctor if your incision/area has: Continuous Slow Oozing (From right wrist) Call your doctor if you observe: Fever of 101 or Higher, Coldness, Increased Pain, Numbness or Tingling, Change in Color, Inability to urinate, Inability to have a bowel movement, Shortness of breath, Dizziness, Fainting spells, Swelling in the ankles, Chest pain, Prolonged hiccupping, Increased palpitations (irregular heartbeat), Calf discomfort and Uncontrolled pain Follow Up Care Test Results: Test results from this visit will be discussed in further detail at your follow-up appointment, if applicable. Discharge Plan Admission Admit Date/Time: 04/22/21 10:04 Primary Reason for Your Visit: Non-STEMI Attending Provider: Nile Dubose Primary Care Provider: Nikko Mills Consulting Providers: Jackelyn Isaac Instructions Patient Instructions: ED Chest Pain, Noncardiac Additional Instructions / Restrictions: Follow-up in cardiac rehab center Discharge Orders/Prescriptions Prescriptions: New atorvastatin 40 mg Tablet 40 mg PO DAILY Qty: 30 RF: 1 lisinopril 20 mg Tablet 20 mg PO DAILY Qty: 30 RF: 1 isosorbide mononitrate 30 mg Tablet Extended Release 24 Hr 30 mg PO DAILY Qty: 30 RF: 0 nitroglycerin 0.4 mg Tablet, Sublingual 0.4 mg sublingual Q5M PRN (Reason: Cardiac/Chest Pain) Qty: 30 RF: 0 aspirin 81 mg Tablet,Chewable 81 mg PO BREAKFAST Qty: 30 RF: 3 Brilinta 90 mg Tablet 90 mg PO BID Qty: 60 RF: 3 Continued albuterol sulfate 90 mcg/actuation HFA aerosol inhaler 90 mcg INHALATION PRN PRN (Reason: Wheezing) RF: 0 fluoxetine 40 MG capsule 40 mg PO DAILY RF: 0 omeprazole 20 MG capsule,delayed release(DR/EC) 20 mg PO DAILY RF: 0 insulin aspart U-100 100 UNIT/ML insulin pen 12 unit SQ TIDCM RF: 0 insulin glargine 100 UNIT/ML insulin pen 28 unit SQ DAILY RF: 0 Discontinued atorvastatin 20 MG tablet 20 mg PO DAILY RF: 0 meloxicam 15 MG tablet 15 mg PO DAILY RF: 0 lisinopril 5 MG tablet 5 mg PO DAILY RF: 0 Referrals / Follow Up: Nikko Mills MD [Primary Care Provider] - Eduardo Harrison MD [STAFF PHYSICIAN] - Within 2 Weeks (Cardiology office) Darinel Armstrong MD [NON-STAFF] - 04/28/21 1:20 pm Disposition Disposition (needs filled in before D/C Order can be placed): Home, Self Care
--- NOTE | 2021-04-25 10:51 | PCM.DC.SUM ---
Providers Date of Admission: 04/22/21 Primary Care Physician: Dr. Nikko Mills MD Consultations 04/21/21 19:51 Consult: Cardiology Routine Consulting Provider: Jackelyn Isaac Reason for Consult: chest pain EMERGENT Consult: No MD Notified: Yes Date Notified: 04/21/21 Time Notified: 19:51 Method of Notification: Provider Initiated Reason For Visit: CHEST PAIN Diagnosis Discharge Diagnosis (1) NSTEMI (non-ST elevated myocardial infarction): Status: Acute Code(s): I21.4 - Non-ST elevation (NSTEMI) myocardial infarction (2) Hypertension: Status: Chronic Code(s): I10 - Essential (primary) hypertension Qualifiers: Hypertension type: essential hypertension Qualified Code(s): I10 - Essential (primary) hypertension (3) Hyperlipidemia: Status: Chronic Code(s): E78.5 - Hyperlipidemia, unspecified Qualifiers: Hyperlipidemia type: mixed hyperlipidemia Qualified Code(s): E78.2 - Mixed hyperlipidemia Medications at Discharge Home Medications fluoxetine 40 mg PO DAILY 02/13/20 insulin aspart U-100 12 unit SQ TIDCM 02/13/20 insulin glargine 28 unit SQ DAILY 02/13/20 omeprazole 20 mg PO DAILY 02/13/20 albuterol sulfate 90 mcg/actuation aerosol inhaler 90 mcg INHALATION PRN PRN 02/16/21 aspirin 81 mg PO BREAKFAST #30 tab 04/25/21 atorvastatin 40 mg PO DAILY #30 tab 04/25/21 isosorbide mononitrate 30 mg PO DAILY #30 tab 04/25/21 lisinopril 20 mg PO DAILY #30 tab 04/25/21 nitroglycerin 0.4 mg SUBLINGUAL Q5M PRN #30 tab 04/25/21 ticagrelor [Brilinta] 90 mg PO BID #60 tab 04/25/21 Hospital Course Summary of Care Provided Hospital Course: This is a 45 obese gentleman admitted with 2-week history of intermittent chest pain, crushing/pressure sensation with radiation to left arm and elevated troponins consistent with non-STEMI. 1. Non-STEMI: Troponins were elevated. Patient cardiac cath on 04/24 showed ostial LAD 80%, mid LAD subtotally occluded with distal vessel filling, mid circumflex 75% stenosis, proximal RCA 60%, at rest diffusely diseased up to 30%. EF 50% with anterior hypokinesis. Patient had PCI of LAD and mid circumflex. Continue aspirin statin and lisinopril. Fasting profile, LDL 100, HDL 35, TG 104. Patient heart rate sinus tach rate around 60 therefore beta-abraham not started. TSH 3.87 in normal range. Repeat thyroid test after 3-6 months. Patient is discharged on aspirin, Brilinta, lisinopril, high intensity atorvastatin, isosorbide mononitrate and sublingual nitroglycerin as needed for chest pain. Medication adherence reinforced. Cardiac rehab. Patient heart rate in the 60s therefore beta-abraham not given. 2. Diabetes mellitus type 2: A1c 8.8. 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 Blood sugar 142. On home dose of insulin 3. Other chronic comorbidities include GERD, obesity: Patient on Protonix, fluoxetine. 4. VTE prophylaxis: Patient on Lovenox. Discharge medication reconciliation done. Discharge follow-up instructions completed. Discharge process discussed with the patient and all questions were answered to patient's satisfaction. Total time spent, exact 35 minutes on discharge meds reconciliation, examination, coordination of care with nurses and ancillary staff, review of imaging and blood test and discussion with the patient on follow-up instructions Physical Exam Narrative No chest pain overnight. Medication compliance reinforced. [employer] shows sinus rhythm. Physical exam General: Alert, Oriented x3, Cooperative HEENT: Atraumatic, PERRLA, EOMI, Normocephalic Oral: No Gingival or Mucosal Lesions/ Ulcerations Neck: Supple, No JVD, Negative Carotid Bruits Lungs: Air entry diminished in bilateral lung bases. No crepitation/rhonchi Cardiovascular: Sinus rhythm, heart rate 60 to 65/min, Normal S1, Normal S2, No murmurs Abdomen: Bowel Sounds Present, Soft, Non Tender, Non-Distended : No renal angle tenderness. No suprapubic tenderness. Extremities: Right radial artery access, no hematoma. No edema, Capillary Refill Less than 3 Seconds Skin: No rashes, No breakdown Musculoskeletal: No Tenderness to Palpation of Joints or Extremities Neurological: Cranial nerves II-XII grossly intact, Deep Tendon Reflexes 2+/4 and Symmetrical, Neuro grossly intact Psych/Mental Status: Normal Affect, Appropriate. Weight / BMI Weight Weight: 154 lb 3.2 oz Body Mass Index (BMI) 21.4 ABG / Lab / Microbiology Data Result Diagrams: 04/25/21 04:58 04/25/21 04:58 Laboratory: Laboratory Results - last 24 hr 04/24/21 04/24/21 04/24/21 11:52 12:45 17:39 WBC 11.7 H RBC 5.15 Hgb 15.8 Hct 46.0 MCV 89.3 MCH 30.7 MCHC 34.3 RDW Std Deviation 41.8 RDW Coeff of Elias 12.7 Plt Count 236 MPV 11.1 Sodium Potassium Chloride Carbon Dioxide Anion Gap BUN Creatinine Estim Creat Clear Calc Est GFR (MDRD) Af Amer Est GFR (MDRD) Non-Af BUN/Creatinine Ratio Glucose Calcium Total Bilirubin AST ALT Alkaline Phosphatase Total Protein Albumin Globulin Albumin/Globulin Ratio POC Glucose 142 H 125 H 04/24/21 04/25/21 04/25/21 22:34 04:58 04:58 WBC 10.1 RBC 5.15 Hgb 15.6 Hct 47.1 MCV 91.5 MCH 30.3 MCHC 33.1 RDW Std Deviation 42.4 RDW Coeff of Elias 12.6 Plt Count 206 MPV 11.3 Sodium 138 Potassium 4.0 Chloride 104 Carbon Dioxide 26.0 Anion Gap 8 BUN 13 Creatinine 0.77 Estim Creat Clear Calc 119.85 Est GFR (MDRD) Af Amer 139 Est GFR (MDRD) Non-Af 115 BUN/Creatinine Ratio 16.8 Glucose 128 H Calcium 8.9 Total Bilirubin 1.10 H AST 19 ALT 30 Alkaline Phosphatase 108 Total Protein 7.3 Albumin 3.6 Globulin 3.7 Albumin/Globulin Ratio 1.0 POC Glucose 143 H 04/25/21 10:29 WBC RBC Hgb Hct MCV MCH MCHC RDW Std Deviation RDW Coeff of Elias Plt Count MPV Sodium Potassium Chloride Carbon Dioxide Anion Gap BUN Creatinine Estim Creat Clear Calc Est GFR (MDRD) Af Amer Est GFR (MDRD) Non-Af BUN/Creatinine Ratio Glucose Calcium Total Bilirubin AST ALT Alkaline Phosphatase Total Protein Albumin Globulin Albumin/Globulin Ratio POC Glucose 144 H D/C Instructions Discharge Diet: Low fat / Low cholesterol and 1800 Calorie Control Diet Additional Activity Instructions: Do not use right hand for heavy pulling or pushing for 2 days Call your doctor if your incision/area has: Continuous Slow Oozing (From right wrist) Call your doctor if you observe: Fever of 101 or Higher, Coldness, Increased Pain, Numbness or Tingling, Change in Color, Inability to urinate, Inability to have a bowel movement, Shortness of breath, Dizziness, Fainting spells, Swelling in the ankles, Chest pain, Prolonged hiccupping, Increased palpitations (irregular heartbeat), Calf discomfort and Uncontrolled pain Meaningful Use Info Meaningful Use Diagnoses (Choose all that apply): AMI AMI/Post PCI/Angioplasty Aspirin given w/in 24hrs of arrival?: Yes ASA at discharge?: Yes Antiplatelet Therapy at Discharge:: Yes Statins at discharge?: Yes David/ARB at discharge?: Yes Beta Abraham at discharge?: No Reason Beta Abraham not ordered:: Hypotension (Sinus bradycardia) Done w/ Acute CO measure.: Yes Documented LVEF (%): 50 Discharge Plan Admission Admit Date/Time: 04/22/21 10:04 Primary Reason for Your Visit: Non-STEMI Attending Provider: Nile Dubose Primary Care Provider: Nikko Mills Consulting Providers: Jackelyn Isaac Instructions Patient Instructions: ED Chest Pain, Noncardiac Additional Instructions / Restrictions: Patient Problems: Altered Health Status related to Hospitalization Patient Goals: *Optimal Level of Health *Keep Appointments *Medication Compliance *Remain SafeFollow-up in cardiac rehab center Discharge Orders/Prescriptions Prescriptions: New atorvastatin 40 mg Tablet 40 mg PO DAILY Qty: 30 RF: 1 lisinopril 20 mg Tablet 20 mg PO DAILY Qty: 30 RF: 1 isosorbide mononitrate 30 mg Tablet Extended Release 24 Hr 30 mg PO DAILY Qty: 30 RF: 0 nitroglycerin 0.4 mg Tablet, Sublingual 0.4 mg sublingual Q5M PRN (Reason: Cardiac/Chest Pain) Qty: 30 RF: 0 aspirin 81 mg Tablet,Chewable 81 mg PO BREAKFAST Qty: 30 RF: 3 Brilinta 90 mg Tablet 90 mg PO BID Qty: 60 RF: 3 Continued albuterol sulfate 90 mcg/actuation HFA aerosol inhaler 90 mcg INHALATION PRN PRN (Reason: Wheezing) RF: 0 fluoxetine 40 MG capsule 40 mg PO DAILY RF: 0 omeprazole 20 MG capsule,delayed release(DR/EC) 20 mg PO DAILY RF: 0 insulin aspart U-100 100 UNIT/ML insulin pen 12 unit SQ TIDCM RF: 0 insulin glargine 100 UNIT/ML insulin pen 28 unit SQ DAILY RF: 0 Discontinued atorvastatin 20 MG tablet 20 mg PO DAILY RF: 0 meloxicam 15 MG tablet 15 mg PO DAILY RF: 0 lisinopril 5 MG tablet 5 mg PO DAILY RF: 0 Referrals / Follow Up: Eduardo Harrison MD [STAFF PHYSICIAN] - 05/12/21 10:00 am (PLEASE CALL TO MAKE AN APPOINTMENT ) Darinel Armstrong MD [NON-STAFF] - 04/28/21 1:20 pm Disposition Disposition (needs filled in before D/C Order can be placed): Home, Self Care
--- NOTE | 2021-04-25 11:13 | CASEMGMT ---
Pt to be sent home on Brilinta and anxious to leave. Pt provided with Brilinta month free card but pt has [facility] and generally there is no co-pay. Pt aware of all, voices understanding. Arturo VILLALOBOS CM
--- NOTE | 2021-04-25 11:26 | PHA.DC.MC ---
Pharmacy Service has performed discharge medication reconciliation and counseling for this patient. 1. ASPIRIN 81MG PO DAILY 2. ISOSORBIDE MONONITRATE 30MG PO DAILY 3. NITROGLYCERIN 0.4MG SL Q5M PRN CHEST PAIN 4. TICAGRELOR 90MG PO BID The patient's discharge medication list was reviewed for discrepancies and discrepancies were resolved. Home Medications fluoxetine 40 mg PO DAILY 02/13/20 insulin aspart U-100 12 unit SQ TIDCM 02/13/20 insulin glargine 28 unit SQ DAILY 02/13/20 omeprazole 20 mg PO DAILY 02/13/20 albuterol sulfate 90 mcg/actuation aerosol inhaler 90 mcg INHALATION PRN PRN 02/16/21 aspirin 81 mg PO BREAKFAST #30 tab 04/25/21 atorvastatin 40 mg PO DAILY #30 tab 04/25/21 isosorbide mononitrate 30 mg PO DAILY #30 tab 04/25/21 lisinopril 20 mg PO DAILY #30 tab 04/25/21 nitroglycerin 0.4 mg SUBLINGUAL Q5M PRN #30 tab 04/25/21 ticagrelor [Brilinta] 90 mg PO BID #60 tab 04/25/21 The patient was counseled on the following discharge medications and changes in medications for homegoing were reviewed. The Reason for Use, instructions for use, and potential side effects were reviewed for all new medications. The patient's questions regarding all of their medications were answered. The patient was able to verbally demonstrate an understanding of their discharge medications.
--- NOTE | 2021-04-26 09:32 | CL.I_ITS ---
Patient Name: MICHAEL NAVA Study Date: 04/24/2021 Performing: Que Garcia MD Ht: 70.87 inches 180 cm : 1975 Wt: 252.01 lbs 114.31 kg Age: 45 Gender: male BSA: 2.32 PROCEDURE(S) PERFORMED [id number] W OR WO PTCA, SINGLE CORONARY ARTERY [id number] W OR WO PTCA, SINGLE CORONARY ARTERY CLINICAL PROFILE AND CO-MORBIDITIES Indications: Suspected CAD, ACS <= 24 hrs Heart Failure: None Stress/Imaging Stress/Image Study Performed: No CONCLUSIONS Successful K[place]ON to mid LAD and pOM1 RECOMMENDATIONS DESCRIPTION OF PROCEDURE The patient arrived to the procedure lab. The risks and benefits of the procedure as well as a full d escription of our services here and current unavailability of surgical backup were fully explained to the patient and/or their significant other prior to the catheterization. The Timeout was completed, verifying the correct patient and procedure. The patient's procedural site was prepped and draped in the usual fashion. Local anesthetic was given subcutaneously to right radial region with Lidocaine 2% Using a modified Seldinger technique,arterial access was obtained via the right radial artery, a 6Fr sheath was inserted. Right Coronary Artery selective angiography was then performed in multiple view s using a 5 Fr. 4.0 Erie catheter. Left Coronary Artery selective angiography was performed in multi ple views using a 5 Fr. 4.0 Erie catheter. Left Ventriculography was performed in REA projection usi ng a 5 Fr. Pigtail catheter. LV to AO pullback pressures were then recorded.The images were reviewed and options discussed. A decision was then made to proceed with an Intervention, IVUS o r other adjunct procedure. XB 3.0 Guide catheter was inserted and engaged into the LCA. BMW Guide wire was advanced to the L AD. 1.5 x 15 Emerge (OTW) Balloon catheter was inserted. 1.2 x 15 Emerge Balloon catheter was advance d across lesion in the LAD, mid. PTCA balloon inflated at 18 atms for 16 secs. PTCA balloon inflated at 18 atms for 18 secs. PTCA balloon inflated at 18 atms for 11 secs. PTCA balloon inflated at 18 christine s for 12 secs. Angiogram performed post balloon dilatation. 2.25 x 20 Emerge Balloon catheter was adv anced across lesion in the LAD, mid. PTCA balloon inflated at 6 atms for 12 secs. PTCA balloon inflat ed at 6 atms for 12 secs. Orsiro 2.5 x 40 Drug Eluting stent was advanced across the lesion in the LA D, mid. 2.5 x 30 NC Emerge Balloon catheter was inserted post stent. Angiogram performed post stent d eployment. Guide wire was repositioned to the 1st OM 3.0 x 12 Emerge Balloon catheter was advanced ac ross lesion in the first obtuse marginal, proximal. PTCA balloon inflated at 10 atms for 12 secs. Orsiro 4.0 x 18 Drug Eluting stent was advanced across the lesion in the first obtuse margin al, proximal. 4.0 x 12 NC Emerge Balloon catheter was inserted post stent. Angiogram performed post b alloon dilatation. The arterial sheath was pulled and a TR Band was applied for hemostasis INTERVENTION INFORMATION LESION SITE: LAD (Mid) Lesion Complexity: High/C, chronic total occlusion: Yes, lesion at bifurcation: No, thrombus present: No, lesion length: 38 mm, culprit lesion: Yes, Previously treated lesion: No Pre Stenosis: 100 % Pre intervention ANT flow: 1 PROCEDURE: Drug Eluting Stent with pre and post dilatation Post Stenosis: 0 % Post intervention ANT flow: 3 Lesion Devices: Marion .014 BMW Beltrami Straight 190cm Cardinal 6 Fr XB3.0 100cm Guide Catheter Santosh Sci EMERGE OTW 1.50x15 BALLOON Marion Doc Guide Wire [employer] 6 Greenlandic GuideLiner Santosh Sci EMERGE MR 1.20x15 BALLOON Santosh Sci EMERGE MR 2.25x20 BALLOON Santosh Sci NC EMERGE MR 2.50x30 BALLOON LESION SITE: 1st OM (Proximal) Lesion Complexity: High/C, chronic total occlusion: No, lesion at bifurcation: No, thrombus present: No, lesion length: 11 mm, culprit lesion: Yes, Previously treated lesion: No Pre Stenosis: 95 % Pre intervention ANT flow: 3 PROCEDURE: Drug Eluting Stent with pre and post dilatation Post Stenosis: 0 % Post intervention ANT flow: 3 Lesion Devices: Marion .014 BMW Beltrami Straight 190cm Cardinal 6 Fr XB3.0 100cm Guide Catheter Santosh Sci EMERGE MR 3.00x12 BALLOON Santosh Sci NC EMERGE MR 4.00x12 BALLOON COMPLICATIONS No Complications PROCEDURE MEDICATIONS Versed 1 mg IV Fentanyl 50 mcg IV Versed 1 mg IV Fentanyl 25 mcg IV Fentanyl 25 mcg IV Oxygen: 2 L/min via nasal cannula Heparin given IA 04/24/2021 09:31:41 Heparin 5000 unit(s) IV 04/24/2021 09:53:46 Heparin 1000 unit(s) IV 04/24/2021 10:23:37 Nitro 100 mcg IC 04/24/2021 10:17:52 Verapamil 2.5mg, Ntg 100mcgs, 3000 units of Heparin given IA 04/24/2021 09:31:41 SUMMARY OF HEMODYNAMIC DATA Time AIR REST ECG 09:16:43 AO 101/80 (90) SA 09:33:43 LV 92/9, 10 09:41:29 LV 106/4, 8 09:41:36 LV 104/4, 5 09:42:42 LVp 104/4, 5 09:42:47 AOp 109/77 (91) 09:42:52 AO 136/72 (95) 09:50:05 Signed By Que Garcia MD On 04/26/2021 09:31:33 Que Garcia MD
--- NOTE | 2021-04-26 14:44 | CASEMGMT ---
GRISELDA GREENBERG Discharge F/U Phone Call LACE: 12 Strata: 3 Discharge date: 04/25/21 Call date: 04/26/21 Call time: [id number] Admission dx: Chest pain Pt answered phone and states has been doing 'pretty good' since discharge. Pt states no questions regarding discharge instructions/medications. Pt states has f/u appt's scheduled and plans to keep. Pt states no suggestions for [facility] and states 'Everything was great!' Pt voices no further questions/concerns/needs. S[place]en GRISELDA GREENBERG
== END 2021-04-25 11:41 | disposition home or self-care (01) | DRG 174 ==
LOC: ED 17:36 → PCU 18:00
PROVIDERS: Internal Medicine; Nurse Practitioner Family; Specialist; Admitting Provider Hospitalist; Emergency Provider Emergency Medicine; PCP Family Medicine; Visit Provider Internal Medicine
DX: I21.4 Non-ST elevation (NSTEMI) myocardial infarction (principal); I25.10 Atherosclerotic heart disease of native coronary artery without angina pectoris; E11.65 Type 2 diabetes mellitus with hyperglycemia; I10 Essential (primary) hypertension; E78.2 Mixed hyperlipidemia; K21.9 Gastro-esophageal reflux disease without esophagitis; E66.9 Obesity, unspecified; Z68.34 Body mass index [BMI] 34.0-34.9, adult; F32.9 Major depressive disorder, single episode, unspecified; F41.9 Anxiety disorder, unspecified; Z79.82 Long term (current) use of aspirin; Z79.4 Long term (current) use of insulin; Z79.899 Other long term (current) drug therapy
CPT/HCPCS: 36415; 71045; 80048; 80053; 80061; 82962; 84443; 84484; 85025; 85027; 85379; 85610; 85730; 92928; 93005; 93306; 93458; 99152; 99153; 99284; J7030; Q9957; Q9967; A4216; C1725; C1769; C1874; C1887; C1894; C8929; C9600; J1327; J2405; J3490

== ENCOUNTER 2021-04-26 15:45 | Emergency (ER) | payer MEDICAID, SELFPAY ==
[2021-04-21 18:37] VITALS: BMI 21.4
[2021-04-26 15:46] VITALS: BP 132/92; PULSE 97; RESP 21; TEMP 36.4; O2SAT 97; BMI 35.5
--- NOTE | 2021-04-26 16:09 | EKG12_ITS ---
Test Reason : DIZZY Blood Pressure : / mmHG Vent. Rate : 079 BPM Atrial Rate : 079 BPM P-R Int : 178 ms QRS Dur : 096 ms QT Int : 358 ms P-R-T Axes : 051 122 033 degrees QTc Int : 410 ms Normal sinus rhythm with sinus arrhythmia Left posterior fascicular block Inferior infarct , age undetermined Anteroseptal infarct , age undetermined Abnormal ECG Confirmed by TINA JUAREZ, DANIEL ([id number]), index editor OPAL GUERRERO ([id number]) on 04/28/2021 1:10:56 PM Referred By: ERICK Confirmed By:DANIEL WILDER MD
--- NOTE | 2021-04-26 16:10 | EDS_ITS ---
HPI History of Present Illness Chief Complaint: Dizziness Narrative Narrative: Patient presents with a 4- 5 minute episode of feeling dizzy like he was about to pass out. He also had a 4 to 5-second episode where he felt his heart rate beat really fast. He now feels back to baseline. No chest pain or shortness of breath. He did have a catheterization 2 days ago and received 2 stents. He has no back pain or tearing sensation. [facility] Medical History Anxiety Cataract Depression Diabetes History of anxiety Kidney stones Substance abuse Home Medications fluoxetine 40 mg PO DAILY 02/13/20 [History Last Taken 04/21/21] insulin aspart U-100 12 unit SQ TIDCM 02/13/20 [History Last Taken 04/21/21] insulin glargine 28 unit SQ DAILY 02/13/20 [History Last Taken 04/21/21] omeprazole 20 mg PO DAILY 02/13/20 [History Last Taken 04/21/21] albuterol sulfate 90 mcg/actuation aerosol inhaler 90 mcg INHALATION PRN PRN 02/16/21 [History Last Taken Unknown] aspirin 81 mg PO BREAKFAST #30 tab 04/25/21 [Rx Last Taken Unknown] atorvastatin 40 mg PO DAILY #30 tab 04/25/21 [Rx Last Taken Unknown] isosorbide mononitrate 30 mg PO DAILY #30 tab 04/25/21 [Rx Last Taken Unknown] lisinopril 20 mg PO DAILY #30 tab 04/25/21 [Rx Last Taken Unknown] nitroglycerin 0.4 mg SUBLINGUAL Q5M PRN #30 tab 04/25/21 [Rx Last Taken Unknown] ticagrelor [Brilinta] 90 mg PO BID #60 tab 04/25/21 [Rx Last Taken Unknown] Allergy/AdvReac Type Severity Reaction Status Date / Time No Known Allergies Allergy Verified 04/26/21 15:49 Surgical History History of coronary artery stent placement (04/24/21) Social History Smoking Status: Never smoker alcohol intake: current alcohol intake frequency: 0-2 drinks per day substance use type: marijuana what type of physical activity do you participate in: none ROS ROS ED ROS Narrative Past medical history: Reviewed, includes diabetes, hypertension, hyperlipidemia, NSTEMI status post PTCA. Medications: Reviewed Social history: Noncontributory Review of systems: All systems negative except as indicated General: No fever. Lightheadedness as in HPI. Eyes: No visual changes ENT: No upper airway congestion, normal voice Neck: No neck pain Cardiovascular: No chest pain. Palpitations as in HPI Respiratory: No shortness of breath or cough Gastrointestinal: No abdominal pain, nausea vomiting or diarrhea Genitourinary: No dysuria Musculoskeletal: Denies myalgias no difficulty with ambulation Skin: No rash Neurological: No memory loss, confusion or any focal weakness Psych: No recent behavioral changes Hematologic: No easy bleeding or easy bruising EXAM Physical Exam Narrative Exam Narrative: Physical exam General: Well nourished, Well developed, No Acute Distress Head: Normocephalic, Atraumatic Eyes: Conjunctiva not pale ENT: Moist mucous membranes Neck: Supple, Nontender, No lymphadenopathy Cardiovascular: Regular rate, Regular rhythm Respiratory: No distress, CTA bilaterally Abdomen: Soft, Nontender, Nondistended Back: Nontender, Normal Inspection. Negative for: CVA tenderness Extremities: Nontender, No edema Skin: Normal color, No rash Neurological: Alert, Normal Strength, Normal Sensation Psychological: Normal affect Const Vital Signs: 04/26/21 15:46 04/26/21 15:49 04/26/21 16:17 Temperature 97.6 F L Temperature Source Temporal Pulse Rate 97 89 Respiratory Rate 21 H Respiratory Effort Normal Non-Labored Blood Pressure 132/92 H 110/67 Blood Pressure Mean 105 81 Pulse Ox 97 Oxygen Delivery Method Room Air 04/26/21 17:03 Temperature Temperature Source Pulse Rate 72 Respiratory Rate 16 Respiratory Effort Blood Pressure 116/79 Blood Pressure Mean 91 Pulse Ox 97 Oxygen Delivery Method Room Air MDM MDM MDM Narrative Medical decision making narrative: Patient has an unremarkable emergency department work-up is troponin is elevated however the second troponin is the same. I discussed with cardiology, Dr. Harrison who agreed the patient to be discharged, a Holter monitor for 48 hours was placed from the ED. Lab Data Labs: Laboratory Results - last 24 hr 04/26/21 04/26/21 04/26/21 15:50 15:50 17:50 WBC 12.9 H RBC 5.24 Hgb 16.0 Hct 47.2 MCV 90.1 MCH 30.5 MCHC 33.9 RDW Std Deviation 40.9 RDW Coeff of Elias 12.4 Plt Count 290 MPV 11.5 Immature Gran % (Auto) 0.500 Neut % (Auto) 60.4 Lymph % (Auto) 26.5 [place] % (Auto) 11.1 H Eos % (Auto) 1.0 Baso % (Auto) 0.5 Absolute Neuts (auto) 7.8 H Absolute Lymphs (auto) 3.42 Nucleated RBC % 0 Sodium 136 Potassium 4.0 Chloride 105 Carbon Dioxide 23.0 Anion Gap 8 BUN 19 H Creatinine 1.01 Estim Creat Clear Calc 95.37 Est GFR (MDRD) Af Amer 102 Est GFR (MDRD) Non-Af 85 BUN/Creatinine Ratio 18.8 Glucose 193 H Calcium 9.6 Total Bilirubin 1.20 H AST 12 L ALT 34 Alkaline Phosphatase 117 Troponin I High Sens 285.6 H* 286.3 H* Total Protein 8.2 Albumin 3.9 Globulin 4.3 H Albumin/Globulin Ratio 0.9 Discharge Plan Triage Chief Complaint: Dizziness ED Provider: Denny Alejandro Dx/Rx/DC Orders Prescriptions: No Action albuterol sulfate 90 mcg/actuation HFA aerosol inhaler 90 mcg INHALATION PRN PRN (Reason: Wheezing) RF: 0 fluoxetine 40 MG capsule 40 mg PO DAILY RF: 0 omeprazole 20 MG capsule,delayed release(DR/EC) 20 mg PO DAILY RF: 0 insulin aspart U-100 100 UNIT/ML insulin pen 12 unit SQ TIDCM RF: 0 insulin glargine 100 UNIT/ML insulin pen 28 unit SQ DAILY RF: 0 atorvastatin 40 mg Tablet 40 mg PO DAILY Qty: 30 RF: 1 lisinopril 20 mg Tablet 20 mg PO DAILY Qty: 30 RF: 1 isosorbide mononitrate 30 mg Tablet Extended Release 24 Hr 30 mg PO DAILY Qty: 30 RF: 0 nitroglycerin 0.4 mg Tablet, Sublingual 0.4 mg sublingual Q5M PRN (Reason: Cardiac/Chest Pain) Qty: 30 RF: 0 aspirin 81 mg Tablet,Chewable 81 mg PO BREAKFAST Qty: 30 RF: 3 Brilinta 90 mg Tablet 90 mg PO BID Qty: 60 RF: 3 Primary Care Provider: Darinel Armstrong Referrals: Darinel Armstrong MD [Primary Care Provider] -
[2021-04-26] MEDS: 0.9% Normal Saline 1,000 ML 1000 ML IV (16:16)
[2021-04-26 16:17] VITALS: BP 110/67; PULSE 89
[2021-04-26 16:25] LABS: Absolute Lymphocyte Count 3.42 X10^3/uL (0.83-4.51); Absolute Neutrophil Count 7.8 X10^3/uL (2.0-7.7); Basophil# 0.07 X10^3/uL; Basophil% 0.5 % (0-1); Eosinophil# 0.13 X10^3/uL; Hematocrit 47.2 % (40-54); Lymphocyte # 3.42 X10^3/ul (0.83-4.51); Lymphocyte % 26.5 % (19-41); Mean Corp Hgb Conc 33.9 g/dL (32-36); Mean Corpuscular Hgb 30.5 pg (27.0-32.0); Mean Corpuscular Volume 90.1 fL (80-94); Mean Platelet Vol. 11.5 fl (6.2-12.0); Monocyte# 1.43 X10^3/uL; Monocyte% 11.1 % (0-10); NRBC Flagged by Analyzer 0 % (0-5); Neutrophil # 7.81 X10^3/uL (2.7-7.7); Neutrophil % 60.4 % (47-70); Platelet Count 290 K/mm3 (150-450); RBC Distribution Width CV 12.4 % (11.6-14.6); RBC Distribution Width SD 40.9 fl (35.1-43.9); Red Blood Count 5.24 M/mm3 (4.6-6.2); White Blood Count 12.9 K/mm3 (4.4-11.0)
[2021-04-26 17:03] VITALS: BP 116/79; PULSE 72; RESP 16; O2SAT 97
[2021-04-26 17:06] LABS: ALB/GLOB Ratio 0.9 RATIO (0.9-2.4); AST(SGOT) 12 U/L (15-37); Alanine Aminotransfer ALT/SGPT 34 U/L (16-61); Albumin, Serum 3.9 g/dL (3.2-5.0); Alkaline Phosphatase 117 U/L (45-117); Anion Gap 8 (5-15); BUN 19 mg/dL (7-18); BUN/Creat Ratio 18.8 RATIO (10-20); Calcium,Total 9.6 mg/dL (8.5-10.1); Chloride 105 mmol/L (98-107); Creatinine, Serum 1.01 mg/dL (0.70-1.30); EST Glomerular Filtration Rate 85 mL/min (>60); Est Glom Filt Rate - Afr Amer 102 mL/min (>60); Estimated Creatinine Clearance 95.37 ml/min; Globulin 4.3 g/dL (2.2-4.2); Glucose 193 mg/dL (74-106); Protein, Total 8.2 g/dL (6.4-8.2); Sodium Level 136 mmol/L (136-145); Troponin-I HS 285.6 pg/mL (3.0-78.5)
[2021-04-26 18:14] LABS: Troponin-I HS 286.3 pg/mL (3.0-78.5)
[2021-04-26 18:49] VITALS: BP 107/83; PULSE 83; RESP 13; O2SAT 97
== END 2021-04-26 18:50 | disposition home or self-care (01) ==
PROVIDERS: Emergency Provider Emergency Medicine; PCP Family Medicine
DX: R42 Dizziness and giddiness (principal); R00.2 Palpitations; E11.9 Type 2 diabetes mellitus without complications; I10 Essential (primary) hypertension; E78.5 Hyperlipidemia, unspecified; F32.9 Major depressive disorder, single episode, unspecified; F41.9 Anxiety disorder, unspecified; Z79.4 Long term (current) use of insulin; Z79.82 Long term (current) use of aspirin; Z79.899 Other long term (current) drug therapy; I25.2 Old myocardial infarction; Z95.5 Presence of coronary angioplasty implant and graft
CPT/HCPCS: 80053; 84484; 85025; 93005; 93225; 93226; 96360; 99283; J7030; A4216

== ENCOUNTER → 2021-04-26 17:45 | Outpatient (CLI) | payer MEDICAID, SELFPAY ==
[2021-04-26 15:46] VITALS: BMI 35.5
== END ==
PROVIDERS: PCP Family Medicine; Visit Provider Internal Medicine Cardiovascular Disease
DX: R00.2 Palpitations (principal)
CPT/HCPCS: 93225; 93226

== ENCOUNTER 2021-05-03 09:46 | Emergency (ER) | payer MEDICAID, SELFPAY ==
[2021-05-03 09:46] VITALS: BP 158/85; PULSE 68; RESP 18; TEMP 36.4; O2SAT 98; BMI 35.9
--- NOTE | 2021-05-03 10:14 | EDS_ITS ---
HPI History of Present Illness Chief Complaint: Hypertension Informant: patient and spouse/S.O. Narrative Narrative: 45-year-old male presents the emergency department for the evaluation of back pain and hypertension. He tells me 2 weeks ago he was admitted into the hospital. From review of the chart I see he was diagnosed with NSTEMI and underwent 2 stent placements. He tells me that for the past 2 days he has not felt right. His blood pressure today was 170 systolic. For the past 2 days he has had a constant dull ache in his left shoulder blade area that occasionally gets sharp. He states nothing seems to make that better or worse. He denies any chest pain. The pain is different from when he had pain that was related to his heart. He is currently on Brilinta. He takes lisinopril 20 mg daily and isosorbide 30 mg daily. [facility] Medical History Anxiety Cataract Depression Diabetes History of anxiety Kidney stones Substance abuse Home Medications fluoxetine 40 mg PO DAILY 02/13/20 [History Last Taken 04/21/21] insulin aspart U-100 12 unit SQ TIDCM 02/13/20 [History Last Taken 04/21/21] insulin glargine 28 unit SQ DAILY 02/13/20 [History Last Taken 04/21/21] omeprazole 20 mg PO DAILY 02/13/20 [History Last Taken 04/21/21] albuterol sulfate 90 mcg/actuation aerosol inhaler 90 mcg INHALATION PRN PRN 02/16/21 [History Last Taken Unknown] aspirin 81 mg PO BREAKFAST #30 tab 04/25/21 [Rx Last Taken Unknown] atorvastatin 40 mg PO DAILY #30 tab 04/25/21 [Rx Last Taken Unknown] isosorbide mononitrate 30 mg PO DAILY #30 tab 04/25/21 [Rx Last Taken Unknown] lisinopril 20 mg PO DAILY #30 tab 04/25/21 [Rx Last Taken Unknown] nitroglycerin 0.4 mg SUBLINGUAL Q5M PRN #30 tab 04/25/21 [Rx Last Taken Unknown] ticagrelor [Brilinta] 90 mg PO BID #60 tab 04/25/21 [Rx Last Taken Unknown] metoprolol succinate 25 mg PO DAILY #30 tab 05/03/21 [Rx Last Taken Unknown] Allergy/AdvReac Type Severity Reaction Status Date / Time No Known Allergies Allergy Verified 04/26/21 15:49 Surgical History History of coronary artery stent placement (04/24/21) Social History Smoking Status: Never smoker alcohol intake: current alcohol intake frequency: 0-2 drinks per day substance use type: marijuana what type of physical activity do you participate in: none ROS ROS ED Constitutional Constitutional ED: Denies chills or weight loss Eyes Eyes: Denies change in vision or diplopia ENT ENT ED: Denies ear pain, rhinorrhea or sore throat Cardiovascular Cardiovascular: Denies chest pain, orthopnea, palpitations or racing heartbeat Respiratory/Chest Respiratory/Chest: Denies cough, dyspnea or orthopnea Gastrointestinal Gastrointestinal: Denies abdominal pain, diarrhea, nausea or vomiting Genitourinary Genitourinary ED: Denies dysuria, hematuria or urinary frequency Musculoskeletal Musculoskeletal: Reports back pain; Denies arthralgias or myalgias Integumentary Denies abscess or rash Neurologic Neurologic: Denies headache(s) or weakness Psychiatric Psychiatric: Denies anxiety, depression, suicidal ideation or suicidal thoughts Endocrine Endocrinology: Denies polydipsia, polyphagia or polyuria Allergic/Immunologic Allergic/Immunologic ED: Denies mouth swelling, tongue swelling or urticaria EXAM Physical Exam Const Vital Signs: 05/03/21 09:46 05/03/21 10:01 Temperature 97.5 F L Temperature Source Temporal Pulse Rate 68 Respiratory Rate 18 Respiratory Effort Normal Non-Labored Respiratory Pattern Normal Blood Pressure 158/85 H Blood Pressure Mean 109 Pulse Ox 98 Oxygen Delivery Method Room Air Positive well nourished and well developed General Appearance ED: well developed HEENT Reports normocephalic, head/scalp atraumatic and moist mucous membranes Eyes PERRL and EOMs intact bilaterally Neck no lymphadenopathy, supple and no JVD Resp normal respiratory effort and clear to auscultation bilaterally Cardio regular rate, regular rhythm and no murmurs GI normal to inspection, nondistended, normoactive bowel sounds and non-tender Palpation: soft Back/Spine no CVA tenderness and normal ROM Back/Spine Narrative: Patient has tenderness to palpation over the scapula. It appears quite tender for him. Extremity normal to inspection General Extremety ED: Negative for edema General Extremity: Negative for edema Neuro oriented x3 and CN's II-XII intact bilaterally Sensorium / Orientation: alert Motor Exam: strength 5/5 throughout Psych mental status grossly normal Mood & Affect: Negative for depressed or tearful Skin no rashes or lesions noted and no wounds MDM MDM MDM Narrative Medical decision making narrative: D-dimer is negative. Troponin is 15.4. My interpretation of the chest x-ray is no acute process. Mild cardiomegaly. EKG is normal sinus. 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 They would like to add in metoprolol 25 mg once a day. He does have an upcoming appointment with Dr. Harrison. Patient was advised to monitor his heart rate in addition to his blood pressure. He is to call the office if he is feeling weak or heart rate is below 50. Lab Data Attestation: I reviewed the patient's lab results. Labs: Laboratory Results - last 24 hr 05/03/21 05/03/21 05/03/21 09:58 09:58 09:58 WBC 12.3 H RBC 4.92 Hgb 15.1 Hct 44.7 MCV 90.9 MCH 30.7 MCHC 33.8 RDW Std Deviation 41.3 RDW Coeff of Elias 12.6 Plt Count 349 MPV 10.8 Immature Gran % (Auto) 0.700 Neut % (Auto) 65.0 Lymph % (Auto) 22.6 [place] % (Auto) 8.1 Eos % (Auto) 3.0 Baso % (Auto) 0.6 Absolute Neuts (auto) 8.0 H Absolute Lymphs (auto) 2.77 Nucleated RBC % 0 D-Dimer Quant (PE/DVT) <= 0.27 Sodium 139 Potassium 4.1 Chloride 105 Carbon Dioxide 27.0 Anion Gap 7 BUN 13 Creatinine 0.83 Estim Creat Clear Calc 116.05 Est GFR (MDRD) Af Amer 129 Est GFR (MDRD) Non-Af 106 BUN/Creatinine Ratio 15.7 Glucose 171 H Calcium 9.1 Total Bilirubin 0.70 AST 13 L ALT 41 Alkaline Phosphatase 98 Troponin I High Sens 15.4 Total Protein 7.7 Albumin 3.7 Globulin 4.0 Albumin/Globulin Ratio 0.9 Radiography Diagnostic Testing: Radiology Impression Chest X-Ray 05/03/21 10:14 IMPRESSION: Mild cardiomegaly. Electronically Signed: Steve Jung MD at 11:00 EDT , Service support , EKG Initial EKG: Attestation: I personally reviewed and interpreted this EKG as follows: Comments: EKG demonstrates a sinus rhythm at a rate of 63 bpm. No concerning features of ACS or ectopy noted Discharge Plan Triage Chief Complaint: Hypertension ED Provider: Morgan Patterson Dx/Rx/DC Orders Clinical Impression: Pain of left scapula, Hypertension, Coronary artery disease Instructions: Hypertension Dc Prescriptions: New metoprolol succinate 25 mg tablet extended release 24 hr 25 mg PO DAILY Qty: 30 RF: 0 No Action albuterol sulfate 90 mcg/actuation HFA aerosol inhaler 90 mcg INHALATION PRN PRN (Reason: Wheezing) RF: 0 fluoxetine 40 MG capsule 40 mg PO DAILY RF: 0 omeprazole 20 MG capsule,delayed release(DR/EC) 20 mg PO DAILY RF: 0 insulin aspart U-100 100 UNIT/ML insulin pen 12 unit SQ TIDCM RF: 0 insulin glargine 100 UNIT/ML insulin pen 28 unit SQ DAILY RF: 0 atorvastatin 40 mg Tablet 40 mg PO DAILY Qty: 30 RF: 1 lisinopril 20 mg Tablet 20 mg PO DAILY Qty: 30 RF: 1 isosorbide mononitrate 30 mg Tablet Extended Release 24 Hr 30 mg PO DAILY Qty: 30 RF: 0 nitroglycerin 0.4 mg Tablet, Sublingual 0.4 mg sublingual Q5M PRN (Reason: Cardiac/Chest Pain) Qty: 30 RF: 0 aspirin 81 mg Tablet,Chewable 81 mg PO BREAKFAST Qty: 30 RF: 3 Brilinta 90 mg Tablet 90 mg PO BID Qty: 60 RF: 3 Primary Care Provider: Darinel Armstrong Referrals: Eduardo Harrison MD [STAFF PHYSICIAN] - Keep Jw appointment Darinel Armstrong MD [Primary Care Provider] - Disposition Disposition: Home, Self Care
--- NOTE | 2021-05-03 10:14 | EKG12_ITS ---
Test Reason : BACK PAIN/HEART HX Blood Pressure : / mmHG Vent. Rate : 063 BPM Atrial Rate : 063 BPM P-R Int : 200 ms QRS Dur : 102 ms QT Int : 412 ms P-R-T Axes : 013 012 026 degrees QTc Int : 421 ms Normal sinus rhythm Inferior infarct ,age undetermined Anterior infarct , age undetermined Abnormal ECG Confirmed by TINA JUAREZ, DANIEL ([id number]), makeup editor OPAL GUERRERO ([id number]) on 05/08/2021 12:51:24 PM Referred By: ELISABETH/FRANK Confirmed By:DANIEL WILDER MD
--- NOTE | 2021-05-03 10:14 | RAD_ITS ---
STUDY: X-RAY CHEST REASON FOR EXAM: Male, 45 years old. Cad TECHNIQUE: Single AP portable view of the chest. COMPARISON: Comparison is made with prior study dated 04/21/2021. FINDINGS: The lungs are clear and expanded. There is no demonstrated pleural abnormality. There is mild cardiac enlargement. Normal mediastinum and leland. Normal visualized pulmonary arteries. Normal visualized aortic arch and descending thoracic aorta. Normal visualized thoracic spine. Normal visualized ribs, clavicles, and shoulders. There is no demonstrated abnormality of the visualized soft tissue structures of the upper abdomen. RAD/Chest 1 View (Portable) IMPRESSION: Mild cardiomegaly. Electronically Signed: Steve Jung MD at 11:00 EDT , Service support ,
[2021-05-03 10:34] LABS: Absolute Lymphocyte Count 2.77 X10^3/uL (0.83-4.51); Basophil# 0.07 X10^3/uL; Basophil% 0.6 % (0-1); Eosinophil# 0.37 X10^3/uL; Hematocrit 44.7 % (40-54); Hemoglobin 15.1 g/dL (13.0-16.5); Lymphocyte # 2.77 X10^3/ul (0.83-4.51); Lymphocyte % 22.6 % (19-41); Mean Corp Hgb Conc 33.8 g/dL (32-36); Mean Corpuscular Hgb 30.7 pg (27.0-32.0); Mean Corpuscular Volume 90.9 fL (80-94); Mean Platelet Vol. 10.8 fl (6.2-12.0); Monocyte% 8.1 % (0-10); NRBC Flagged by Analyzer 0 % (0-5); Neutrophil # 7.99 X10^3/uL (2.7-7.7); Platelet Count 349 K/mm3 (150-450); RBC Distribution Width CV 12.6 % (11.6-14.6); RBC Distribution Width SD 41.3 fl (35.1-43.9); Red Blood Count 4.92 M/mm3 (4.6-6.2); White Blood Count 12.3 K/mm3 (4.4-11.0)
[2021-05-03 10:44] LABS: D-Dimer Quantitative (DVT/PE) <= 0.27 FEU/ug/m (0.27-0.49)
[2021-05-03 10:55] LABS: ALB/GLOB Ratio 0.9 RATIO (0.9-2.4); AST(SGOT) 13 U/L (15-37); Alanine Aminotransfer ALT/SGPT 41 U/L (16-61); Albumin, Serum 3.7 g/dL (3.2-5.0); Alkaline Phosphatase 98 U/L (45-117); Anion Gap 7 (5-15); BUN 13 mg/dL (7-18); BUN/Creat Ratio 15.7 RATIO (10-20); Calcium,Total 9.1 mg/dL (8.5-10.1); Chloride 105 mmol/L (98-107); Creatinine, Serum 0.83 mg/dL (0.70-1.30); EST Glomerular Filtration Rate 106 mL/min (>60); Est Glom Filt Rate - Afr Amer 129 mL/min (>60); Estimated Creatinine Clearance 116.05 ml/min; Glucose 171 mg/dL (74-106); Potassium 4.1 mmol/L (3.5-5.1); Protein, Total 7.7 g/dL (6.4-8.2); Sodium Level 139 mmol/L (136-145); Troponin-I HS 15.4 pg/mL (3.0-78.5)
[2021-05-03 11:30] VITALS: BP 148/92; PULSE 72; RESP 16; O2SAT 97
== END 2021-05-03 11:31 | disposition home or self-care (01) ==
PROVIDERS: Emergency Provider Emergency Medicine; PCP Family Medicine
DX: I10 Essential (primary) hypertension (principal); E11.9 Type 2 diabetes mellitus without complications; I25.10 Atherosclerotic heart disease of native coronary artery without angina pectoris; M25.512 Pain in left shoulder; M54.9 Dorsalgia, unspecified; F32.9 Major depressive disorder, single episode, unspecified; F41.9 Anxiety disorder, unspecified; Z79.82 Long term (current) use of aspirin; Z79.4 Long term (current) use of insulin; Z79.02 Long term (current) use of antithrombotics/antiplatelets; Z79.899 Other long term (current) drug therapy; I21.4 Non-ST elevation (NSTEMI) myocardial infarction; Z95.5 Presence of coronary angioplasty implant and graft
CPT/HCPCS: 71045; 80053; 84484; 85025; 85379; 93005; 99285; A4216

== ENCOUNTER → 2021-05-09 09:34 | Outpatient (CLI) | payer MEDICAID, SELFPAY ==
[2021-04-21 18:37] VITALS: BMI 21.4
[2021-05-03 09:46] VITALS: BMI 35.9
--- NOTE | 2021-05-09 09:39 | CR.ITP_ITS ---
Diagnosis - General Information Admitting Diagnosis: PCI w/coronary stent placement Secondary Diagnosis: NSTEMI, HTN, HLD, DM Type II Personal Learning Style:: Audio/Visual, Written Barriers to Learning: Vision Impairment Stage of change r/t lifestyle modifications:: Action Gave educational material for:: Treating Heart Disease, Emotions & Heart Disease, Stress Management & Relaxation, Sleep Disorders & Heart Disease, How The Heart Works, What it means to have Heart Disease, How Coronary Artery Disease is Diagnosed, Heart Procedures, What Heart Medications Do, Risk Factors & Modifications, Living an Active Life, Nutrition - Education/Goals Individual Counseling: Initial Assessment: Abnormal Cholesterol Levels, High Blood Pressure, Diabetes, A. Fasting Blood Sugar >100 - 193, Hypertension - 138/74, Low HDL <40/Males or <50/Females - 35 Cardiac Rehabilitation Goals: 1. Maintain the individual as the primary focus of care. 2. To improve the patient's quality of life. 3. Identification of cardiac risk factors and provide cardiac risk factor management. 4. Enhance the psychosocial status of the patient. 5. Reconditioning enough to allow the patient to resume customary activities. 6. Control symptoms of cardiac disease Personal Goals: Initial Assessment: Improve management of stress and emotions, Improve energy level, Get back to work, or to resume activities faster, Improve knowledge of cardiac disease, Improve muscle strength and endurance, Improve diet and eating habits (eat healthier), Control risk factors (learn risk factor modification) Scale for measuring improvement of personal goals: Enter appropriate number in Comments. 2 = Unchanged. 3 = Slightly Better. 4 = Moderate Improvement. 5 = Met my Goal - Diagnosis & Disease Process Outcomes/Goals: Pt IDs own risk factors & lifestyle modifications by Session 10, Verbalizes symptoms of angina & response by session 3. Plan/Interventions: Assist Pt to ID & engage in lifestyle modification to reduce CVD risk, Instruct on individual risk factors, Review symptoms of angina & emergency actions, Review secondary diagnosis & identify educational needs. - Safety Referral to Physical Therapy: No Referral to [facility] Case Management: No Fall Risk Assessed:: Yes Assistive Devices:: None Exercise - Initial Assessment - Visit Date of Eval: 05/09/21 Session #:: 0 - Pre-cardiac rehba evaluation Mets: Pre-: >7 METS for 30 minutes by discharge - Physician Prescribed Exercise Modalities: Treadmill, Rower, Airdyne, NuStep Frequency: 3x/week for 12 weeks [36 sessions] Intensity: 60-80% of age predicted maximum heart rate reserve Current METSs:: 3.0 Target Heart Rate:: 113-148 Resting Blood Pressure: 138/74 EKG Type: Sinus bradycardia left posterior fasicular block - Outcomes & Goals Goals:: Verbalizes understanding of THR, RPE & goal METS by session 6, Documents in home exercise log/reports 30 min aerobic 5 day/wk by DC, Demonstrates accurate pulse taking by DC - Intervention & Plan Exercise Program Goals: Instruct on personal THR & RPE, Instruct on MET level & personal MET goal, Show patient to take own pulse /validate performance until accurate, Instruct on home exercise - Physical Activity Home Exercise Physical Activity - Home Exercise: Safe Exercise, Warm-up, Self-monitoring, Cool-Down, Home Exercise > 30 min Daily, Sitting Time <3 hours/daily - Outcomes & Goals Outcomes/Goals: Demonstrates correct Warm-up/exercise Cool-Down (S3) if = 2.5 METs, Verbalizes symptoms of exercise intolerance by Session 3 (S3), Demonstrate safe equipment use (S3) & follows exercise prescrition (6) - Intervention & Plan Plan/Intervention: Instruct warm-up & cool-down if exercising at > 2 METs, Instruct on symptoms of exercise intolerance & actions to take, Instruct & monitor on saf, Assess intial functional capacity & safety risk Nutrition - Initial Assessment - Program Goals Nutrition Program Goals: LDL <100 optimal. 100 - 129 Near optimal. 130 - 159 Borderline High. 160 - 189 High. Total Cholesterol <200 desirable. 200 - 239 Borderline High. >/= 240 High. HDL < 40 Low >/=60 High. Triglycerides <150 desirable. <199 optimal. VlDL 5 - 40. HgbA1C <7%. BMI <25 Patient has diagnosis of Hyperlipidemia (ICD E78)?: Yes - Visit Date of Assessment:: 05/09/21 Session #:: 0 - Precardiac rehab evaluation - Cholesterol/Lipids Triglycerides (mg/dL): 104 Total Cholesterol (mg/dL): 156 LDL Cholesterol (mg/dL): 100 HDL Cholesterol (mg/dL): 35 Determine presence & major risk factors that modify LDL goal: Hypertension or hypertensive medication, Low HDL cholesterol <40 mg/dL*, Family history of premature CHD in Male < 55 years: female <65 yearsFa, Age men > 45 years; women >/= 55 years Outcomes/Goals: Pt IDs own risk factors & lifestyle modifications by Session 10, Verbalizes symptoms of angina & response by session 3., Pt independently manages Intervention/Plan: Instruct on personal lipid levels & lipid goals/NCEP guidelines, Instruct on cholesterol Referral to dietitian:: Yes - Diabetes (Other Core Measures) Diabetes Type: Diagnosis Type II ICD-10 E11 Fasting blood glucose:: 193 Hgb A1C (4.2 - 6.3): 8.8 Insulin dependent injection/pump?: Yes Non-Insulin Dependent?: Yes Do you monitor your blood sugar at home?: Yes Referral to Diabetic Clinic:: Yes Outcomes/Goals:: Able to state symptoms of, Able to state, Able to state Intervention/Plan:: Instruct on, Refer to, Instruct on - Weight Mgt (Other Care) Not Applicable: Yes Height: 5 ft 11 in Weight:: 154 lb 6.4 oz BMI: 21.5 Diagnosis Overweight/Obesity BMI> 30% ICD-10 E66: No Diagnosis High BMI/Morbid Obesity BMI> 35% ICD-10 Z68: No Outcomes/Goals: Pt sets, maintains & shows weight loss goal & trend during rehab Intervention/Plan: Instruct on ideal BMI & set weight loss goal w/patient - Healthy Eating Habits Will attend diet classes:: Yes Outcomes/Goals:: Consume diet rich in vegs,fruits,whole grain/high fiber,fish,lean meat, Limit sat/trans fats,cholesterol & added salts & sugars Intervention/Plan:: Assess current eating habits - Education Gave educational materials for:: Signs & symptoms of hypoglycemia, Signs & symptoms of hyperglycemia, Relate diabetes to coronary artery disease, Healthy eating Nutrition - 30-Day Assessment Nutrition - 60-Day Assessment Nutrition - 90-Day Assessment Nutrition - Final Assessment Medical - Initial Assessment - Visit Date of Eval: 05/09/21 Session #:: 0 - pre cardiac rehab evaluation - Medication Compliance Preventative Medication(s):: Aspirin, Ticagrelor/P2Y12 inhibitor, Statin/lipid, Beta flo H/O mental health issues: depression, anxiety, or addiction?: No Doesn?t believe in the benefits of treatment?: No Believes medications are unnecessary or harmful?: No Has a concern about medication side effects?: No Expresses concern over the cost of medications?: No Outcomes/Goals: Verbalizes medications,desired effect & common side effects @ DC, Pt self-reports following medication regimen, Keeps card in wallet w/medications listed by DC Interventions/plans: Instruct on medication effects & side effects, Review medication list w/patient every two weeks, Instruct importance of taking meds as ordered & assist problem solving - Tobacco Use Tobacco Use: - - History of substance (marijuana) use. - Hypertension Hypertension Diagnosis:: Hypertension ICD-10 I10 Resting Blood Pressure:: 138/74 [place] [employer] Hypertension Guidelines: [place] [employer] Hypertension Guidelines. Normal BP Less than 120/80. Elevated BP 120/80. Hypertension Stage 1: BP 130-139/80-89. Hypertesnion Stage 2: BP 140 or higher/90 or higher. Hypertension Crisis: BP higher than 180/120 Outcomes/Goals: Able to verbalize/achieve optimal blood pressure <130/80, Incorporates diet changes & exercise for blood pressure control by DC Interventions/plan: Instruct on optimal blood pressure, hypertension & medications, Instruct on effects of sodium, alcohol, stress, exercise &hypertension - Tobacco Cessation Referral Smoking Cessation Referral:: No Individual Education/Counseling:: No Education Schedule Given:: Yes Medical- 30-Day Assessment Medical- 60-Day Assessment Medical- 90-Day Assessment Medical - Final Assessment Psychosocial - Initial Assess - VIsit Date of Eval: 05/09/21 Session #:: 0 - pre-cardiac rehab evaluation Not Applicable: Yes History of previous Mental disease:: No - Psychosocial Test Tool Used:: Christina Black QOL Cardiac, PHQ-9 Questionnaire phq-9 Severity: Severity. 1-4 Minimal Depression. 5-9 Mild Depression. 10-14 Moderate Depression. 15-19 Moderately Sever Depression. 20-27 Severe Depression. Rule: - Referral to Behavioral Health PS - Interventions: Yes Attend Stress Management Classes, No Referral to Behavioral Health if PHQ-9 score >9:, No Referral to [facility], No Referral to Physician if PHQ-9 if score is 5-9: - Outcomes/Goals: See list Psychosocial Outcomes/Goals:: ID's personal stressors & 2 strategies to manage stress by discharge - Intervention/Plan: See List Interventions/Plan:: Assess stressors,coping strategies & signs of derpression on admission, Instruct/assist pt to develop coping & personal stress Mgt strategies, Instruct patient to recognize signs & symptoms of depression, Instruct patient to recog Psychosocial - 30-Day Assess Psychosocial - 60-Day Assess Psychosocial - 90-Day Assess Psychosocial - Final Assessmen Patient Health Questionnaire Initial Assessment 1. Little interest or pleasure in doing things: Nearly every day 2. Feeling down, depressed, or hopeless: Several days 3. Trouble falling or staying asleep, or sleeping too much: More than half the days 4. Feeling tired or having little energy: Nearly every day 5. Poor appetite or overeating: Several days 6. Feeling bad about yourself -- or that you are a failure or have let yourself or your family down: Several days 7. Trouble concentrating on things, such as reading the newspaper or watching television: Several days 8. Moving or speaking so slowly that other people could have noticed. Or the opposite - being so fidgety or restless that you have been moving around a lot more than usual: Not at all 9. Thoughts that you would be better off , or of hurting yourself in some way: Not at all How difficult have these problems made it for you to do your work, take care of things at home, or get along with other people?: Extremely difficult Total Score: 12 KRAIG-Q SV Test - Statements CAD is a disease of the arteries in the heart: False Examples of risk factors for heart disease: True Angina is chest pain or discomfort: True The benefits of resistance training include: True Eating more meat and dairy products: I Don't Know Anti-platelet medications such as aspirin are important: I Don't Know The only effective way to manage stress: False An exercise warm-up slowly increases heart rate: I Don't Know Prepared, processed foods usually have high sodium: True Depression is common after a heart attack: I Don't Know The statin medications lower cholesterol: I Don't Know To control blood pressure, lower the amount of sodium: I Don't Know If someone gets chest discomfort during walking: I Don't Know Transfats are partially hydrogenated vegetable oils: I Don't Know Sleep apnea that is not treated increases the risk: I Don't Know To control cholesterol, one should become a vegetarian: False Someone knows if he/she is exercising at the right level: I Don't Know Diabetes cannot be prevented with exercise & health eating: I Don't Know Stress is a large risk for heart attack: I Don't Know A diet that can help lower blood pressure is rich in: I Don't Know - Total Score Total Correct Responses: 7 Self-Efficacy Initial Assessment We would like to know how confident you are in doing certain activities. Please select your confidence level for:: Select your confidence level for the following using the scale 1-10 where 1 is not at all confident and 10 is totally confident. Your score is the average of all 6 responses. Fatigue: How confident are you that you can keep the fatigue caused by your disease from interfering with the things you want to do? Select Number: 1 Physical Discomfort or Pain: How confident are you that you can keep the physical discomfort or pain of your disease from interfering with the things you want to do? Select Number: 1 Emotional Distress: How confident are you that you can keep the emotional distress caused by your disease from interfering with the things you want to do? Select Number: 2 Other Symptoms or Health Problems: How confident are you that you can keep other symptoms or health problems from interfering with the things you want to do? Select Number: 2 Different Tasks and Activities: How confident are you that you can do the different tasks and activities needed to manage your health condition so as to reduce your need to see a doctor? Select Number: 4 Medication: How confident are you that you can do things other than just taking medication to reduce how much your illness affects your everyday life? Select Number: 5 Total Score:: 2 Nutrition Survey - Nutrition Survey Discharge Have you lost >10 lbs over the past 2 months without trying?: No Are you following a special diet at home for diabetes, low fat, or low salt?: No Are you interested in meeting with a dietitian for help understanding your diet? : Yes Do you eat less than 3 meals a day?: Yes Do you eat fatty meats (georges, sausage, ribs, etc), fried foods, desserts, large amounts of salad dressings, margarine, butter, or cheese most days?: Yes Do you have food allergies? [Enter types in comment field]: No Do you eat in restaurants more than 3 times a week?: No Do you season food with salt, seasoning salt, or garlic salt?: Yes Do you used canned, boxed, frozen meals, or soups, seasoning packets?: Yes Total Score:: 5
--- NOTE | 2021-05-09 09:39 | CR.HP_ITS ---
CR - History & Physical - General Arrival date:: 05/09/21 Arrival time:: 09:42 Date of Referral:: 04/24/21 Date of CR Evaluation:: 05/09/21 Referring Physician: Dr. Eduardo Harrison Primary Diagnosis: NSTEMI, PCI w/coronary stenting - History of Present Cardiac Event Onset Date: Enter Onset Date of cardiac illnesses in Comment field below Acute Myocardial Infarction within 12 months:: Yes - NSTEMI on 04/24/2021 PTCA or coronary stenting:: Yes - 04/24/2021 Type of Symptoms:: patient presented to ER with episode of dizziness, and 4-5 second episode of rapid heart rate. Interventions with present event:: Heart cath, PCI intervention with coronary stent placement - Sleep Disorder Evaluation Hx of Sleep Apnea: No Do you snore loudly (louder than talking or can be heard through closed doors)?: Yes Do you often feel tired/ fatigued/ sleepy during daytime?: Yes Has anyone observed you stop breathing during sleep?: No History of Hypertension (for STOP score): Yes STOP Results: Positive - Medications Home Medications: Ambulatory Orders Medication Instructions Recorded fluoxetine 40 mg PO DAILY 02/13/20 insulin aspart U-100 12 unit SQ TIDCM 02/13/20 insulin glargine 28 unit SQ DAILY 02/13/20 omeprazole 20 mg PO DAILY 02/13/20 albuterol sulfate 90 mcg/actuation 90 mcg INHALATION PRN PRN 02/16/21 aerosol inhaler aspirin 81 mg PO BREAKFAST #30 tab 04/25/21 atorvastatin 40 mg PO DAILY #30 tab 04/25/21 isosorbide mononitrate 30 mg PO DAILY #30 tab 04/25/21 lisinopril 20 mg PO DAILY #30 tab 04/25/21 nitroglycerin 0.4 mg SUBLINGUAL Q5M PRN #30 tab 04/25/21 ticagrelor [Brilinta] 90 mg PO BID #60 tab 04/25/21 metoprolol succinate 25 mg PO DAILY #30 tab 05/03/21 metoprolol tartrate 25 mg PO DAILY 05/09/21 - Allergies Allergies/Adverse Reactions: Allergies No Known Allergies Allergy (Verified 04/26/21 15:49) Advanced Directives - Advanced Directives Power of Inspector Aligning: No Living Will: No Advance Directives Information Provided: Yes Advance Directives on File: No DNR Order?:: No - MOLST See MOLST form: No Past Medical History - Covid-19 Screening Fever: No Current respiratory symptoms: No Upper respiratory infections symptoms: No Gastro-intestinal symptoms: No [id number]-[id number] symptoms: No Has tested positive for COVID-19 in last 30 days: No Date of testin04/24/21 - COVID VACCINATED Had contact w/person w/symptoms or Covid-19 (+) last 14 days: No Has High Risk Exposures ID'd by Health dept/Inf Control team: No 65 years or older:: No Lives in Assisted Living facility:: No Has a chronic lung disease or moderate to severe asthma:: No Has a serious heart condition:: No Immunocompromised:: No Severely obese (Body Mass Index of 40 or higher):: No Diabetic:: Yes Has chronic kidney disease undergoing dialysis:: No Has liver disease:: No - Past Medical Illness Medical History: Past Medical History (Last Reviewed 05/03/21 @ 10:[address] Morgan Patterson DO) Anxiety F41.9 Cataract H26.9 Depression F32.9 Diabetes E11.9 History of anxiety Z86.59 Kidney stones N20.0 Substance abuse F19.10 - Past Surgical History Surgical History: Past Surgical History (Last Reviewed 05/03/21 @ 10:[address] Morgan Patterson DO) History of coronary artery stent placement Onset Date: 04/24/21 Z95.5 PCI-[facility] w/ 2.5 x 40 mm Orsiro Stent and [facility]-OM1 w/ 4.0 x 18 mm Orsiro Stent 04/24/21 Surgical History: no surgical history Social History - Smoking History Smoking Status: Never smoker Hx Tobacco Use: No Hx Smoking Exposure: No - Alcohol Use Alcohol Usage: Yes - 1-2 drinks per day - Substance Abuse Hx Substance Use: Yes - Marijuana use - Occupation Occupation (List type of work in comments):: Unemployed - Hobbies, Recreation, Social Activities Hobbies: Sports - HUNTING & FISHING ALOT, Other Recreational Activities: I am able to engage in a few activities - LACK OF ENERGY Social Environment - Status Marital Status: Single - Current Living Arrangements Living Environment:: Family - Children How many children do you have?: 0 - Safety Do you feel safe in your surroundings?: Yes Review of Systems - Review of Systems Hints: Right click = Denies ([place]). Left click = Reports ([place]) Review of Present Symptoms: Reports: Dizziness/Lightheadedness - JUST ONE EPISODE AFTER THE STENTS CAME IN TO ER AND WAS SENT HOME., Fatigue, Heart Arrhythmia/Irregularities - sINUS BRADYCARDIA, Appetite - Normal, Sleep - Normal. Denies: Shortness of Breath at Rest, Shortness of Breath with Exertion, Angina, Appetite - Special Diet - Pain Is Patient Pain Free?: Yes Pain Location: none Pain Level: 0/10 Risk Factor Assessment - Vital Signs Temperature: 97.6 F Respiratory Rate: 16 Pulse Ox: 96 Blood Pressure: 138/74 - Pulse Pulse Rate: 46 Pulse Rhythm: Regular - Hypertension How long have you been treated?: BEEN ON MEDICATIONS FOR A WHILE NOW Blood Pressure Sitting - Left Arm: 138/74 - Blood Cholesterol/Lipids Total Cholesterol (mg/dL) Goal = less than 200 mg/dL: 156 HDL Cholesterol (mg/dL) Goal = less than 40 mg/dL: 35 LDL Cholesterol (mg/dL) Goal = less than 70 mg/dL: 100 Triglycerides (mg/dL) Goal = less than 150 mg/dL: 104 - Diabetes Diabetic History: Type I Nutrition Referral for Diabetes: Yes - Obesity Height: 5 ft 10 in Weight:: 154 lb 4.8 oz Weight in Pounds: 154.3 lbs Weight Source: Stated by Patient Body Mass Index (BMI): 22.1 Nutritional Referral for Obesity: No - Risk Stratification Risk Guidelines: Lowest Risk: Risk Factor for Smoking, Risk Factor for Obesity, Risk Factor for Depression, Moderate Risk: Risk Factor for Dyslipidemia, Risk Factor for Diabetes, Risk Factor for Hypertension, Risk Factor for Sedentary Lifestyle, Highest Risk: Risk Factor for Sedentary Lifestyle Motivation - Motivation to Participate On a scale of 1 to 10, how prepared are you to commit to attending program?: 8 What do you see as barriers to successfully being able to complete the program?: NONE What do you see as the benefits of succesfully completing the program? In other words, what do you hope to get out of participating in the program?: LEARN MORE ABOUT HEART DISEASE, GET ONT HE RIGHT TRACK, GET HEALTHIER. Are there issues you are dealing with that will interfere with completing the program?: NONE Do you have a spouse or signficant other, family or friends who will help support you to complete the program?: YES; SO/SO
[2021-05-09 09:58] VITALS: BP 138/74; BMI 21.5
[2021-05-09 10:08] VITALS: BP 138/74; PULSE 46; RESP 16; TEMP 36.4; O2SAT 96; BMI 22.1
== END ==
PROVIDERS: PCP Family Medicine; Referring Provider Internal Medicine Cardiovascular Disease; Visit Provider Internal Medicine Cardiovascular Disease
DX: Z95.5 Presence of coronary angioplasty implant and graft (principal); I25.2 Old myocardial infarction

== ENCOUNTER 2021-05-26 15:15 | Outpatient (RCR) | payer MEDICAID, SELFPAY ==
[2021-05-09 09:58] VITALS: BMI 21.5
[2021-05-09 10:08] VITALS: BMI 22.1
== END 2021-05-27 23:59 ==
LOC: CR 15:15
PROVIDERS: PCP Family Medicine; Referring Provider Internal Medicine Cardiovascular Disease; Visit Provider Internal Medicine Cardiovascular Disease
DX: Z95.5 Presence of coronary angioplasty implant and graft (principal); I21.4 Non-ST elevation (NSTEMI) myocardial infarction; I10 Essential (primary) hypertension; E78.2 Mixed hyperlipidemia; E66.01 Morbid (severe) obesity due to excess calories; Z68.35 Body mass index [BMI] 35.0-35.9, adult; E11.65 Type 2 diabetes mellitus with hyperglycemia
CPT/HCPCS: 93798

== ENCOUNTER 2021-06-26 15:15 | Outpatient (RCR) | payer MEDICAID, SELFPAY ==
[2021-05-09 09:58] VITALS: BMI 21.5
[2021-05-12 10:14] VITALS: BMI 35.8
--- NOTE | 2021-06-07 09:49 | CR.ITP_ITS ---
Diagnosis - General Information Admitting Diagnosis: PCI with coronary stent Exercise - 30-day Assessment - Visit Date of Eval: 06/07/21 Session #:: 8 Comments:: Pt has not been to rehab since 05/26/21. Pt called and stated that he has not been feeling well. Pt has had a sore throat, congestion, and a cough. Instructed pt to not return until 06/12/21. if he fells better. - Physician Prescribed Exercise Modalities: Treadmill, Rower, NuStep Frequency: 3x/week for 12 weeks [36 sessions] Intensity: 60-80% of age predicted maximum heart rate reserve Current METSs:: 4.5 Target Heart Rate:: 113-148 Current RPE:: 12.5-14 Maximum Excercise HR:: 101 Resting Blood Pressure: 108/72 Maximum Exercise Blood Pressure: 160/90 EKG Type: SB to NSR - Outcomes & Goals Goals:: Verbalizes understanding of THR, RPE & goal METS by session 6, Documents in home exercise log/reports 30 min aerobic 5 day/wk by DC, Demonstrates accurate pulse taking by DC, Other additional outcome/goals: see below - Intervention & Plan Exercise Program Goals: Instruct on personal THR & RPE, Instruct on MET level & personal MET goal, Show patient to take own pulse /validate performance until accurate, Instruct on home exercise, Other additional plan/int - 30-day Reassessments 30 day Reassessments:: Progressing - Physical Activity Home Exercise Physical Activity - Home Exercise: Safe Exercise, Warm-up, Self-monitoring, Cool-Down, Home Exercise > 30 min Daily, Sitting Time <3 hours/daily - Outcomes & Goals Outcomes/Goals: Demonstrates correct Warm-up/exercise Cool-Down (S3) if = 2.5 METs, Verbalizes symptoms of exercise intolerance by Session 3 (S3), Demonstrate safe equipment use (S3) & follows exercise prescrition (6), Other: See below - Intervention & Plan Plan/Intervention: Instruct warm-up & cool-down if exercising at > 2 METs, Instruct on symptoms of exercise intolerance & actions to take, Instruct & monitor on saf, Assess intial functional capacity & safety risk, Other See below - 30-day Reassessments 30 day Reassessments:: Progressing Nutrition - Initial Assessment Nutrition - 30-Day Assessment - Program Goals Nutrition Program Goals: LDL <100 optimal. 100 - 129 Near optimal. 130 - 159 Borderline High. 160 - 189 High. Total Cholesterol <200 desirable. 200 - 239 Borderline High. >/= 240 High. HDL < 40 Low >/=60 High. Triglycerides <150 desirable. <199 optimal. VlDL 5 - 40. HgbA1C <7%. BMI <25 Patient has diagnosis of Hyperlipidemia (ICD E78)?: Yes - Visit Date of Assessment:: 06/07/21 Session #:: 8 - Cholesterol/Lipids Determine presence & major risk factors that modify LDL goal: Hypertension or hypertensive medication, Low HDL cholesterol <40 mg/dL*, Family history of premature CHD in Male < 55 years: female <65 yearsFa, Age men > 45 years; women >/= 55 years Outcomes/Goals: Pt IDs own risk factors & lifestyle modifications by Session 10, Verbalizes symptoms of angina & response by session 3., Pt independently manages, Other Additional Outcomes/Goals: Intervention/Plan: Advocate for lipid panel cholesterol medication if applicable, Instruct on personal lipid levels & lipid goals/NCEP guidelines, Instruct on cholesterol, Other additional plan/int Referral to dietitian:: Yes 30-day Reassessments:: Progressing - Diabetes (Other Core Measures) Diabetes Type: Diagnosis Type II ICD-10 E11 Insulin dependent injection/pump?: Yes Non-Insulin Dependent?: Yes Do you monitor your blood sugar at home?: Yes Referral to Diabetic Clinic:: Yes Outcomes/Goals:: Able to state symptoms of, Able to state, Able to state, Other additional Intervention/Plan:: Instruct on, Refer to, Instruct on, Other 30-day Reassessments:: Progressing - Weight Mgt (Other Care) Height: 5 ft 11 in Weight:: 117.934 kg BMI: 36.2 Outcomes/Goals: Pt sets, maintains & shows weight loss goal & trend during rehab, Other additional outcomes/goals Intervention/Plan: Instruct on ideal BMI & set weight loss goal w/patient, Assist pt to ID & incorporate diet changes for weight loss by S9, Refer to [facility] program as appropriate, Encourage goal of using 250-300dcal per session for weight loss, Other additional plan/interventions 30 day Reassessments:: Progressing - Healthy Eating Habits Will attend diet classes:: Yes Outcomes/Goals:: Consume diet rich in vegs,fruits,whole grain/high fiber,fish ,lean meat, Limit sat/trans fats,cholesterol & added salts & sugars, Other additional outcome/goals: Intervention/Plan:: Assess current eating habits, Other Additional plan/in terventions - Education Gave educational materials for:: Signs & symptoms of hypoglycemia, Signs & symptoms of hyperglycemia, Relate diabetes to coronary artery disease Nutrition - 60-Day Assessment Nutrition - 90-Day Assessment Nutrition - Final Assessment Medical - Initial Assessment Medical- 30-Day Assessment - Visit Date of Eval: 06/07/21 Session #:: 8 - Medication Compliance Preventative Medication(s):: Aspirin, Ticagrelor/P2Y12 inhibitor, Statin/lipid, Beta flo H/O mental health issues: depression, anxiety, or addiction?: No Doesn?t believe in the benefits of treatment?: No Believes medications are unnecessary or harmful?: No Has a concern about medication side effects?: No Expresses concern over the cost of medications?: No Outcomes/Goals: Verbalizes medications,desired effect & common side effects @ DC, Pt self-reports following medication regimen, Keeps card in wallet w/medications listed by DC, Other additional outcome/goals: Interventions/plans: Instruct on medication effects & side effects, Review medication list w/patient every two weeks, Instruct importance of taking meds as ordered & assist problem solving, Other additional 30-day Reassessments:: Progressing - Tobacco Use 30-day Reassessments:: Progressing - Hypertension Hypertension Diagnosis:: Hypertension ICD-10 I10 Resting Blood Pressure:: 108/72 [place] [employer] Hypertension Guidelines: [place] [employer] Hypertension Guidelines. Normal BP Less than 120/80. Elevated BP 120/80. Hypertension Stage 1: BP 130-139/80-89. Hypertesnion Stage 2: BP 140 or higher/90 or higher. Hypertension Crisis: BP higher than 180/120 Peak Exercise Blood Pressure:: 160/90 Outcomes/Goals: Able to verbalize/achieve optimal blood pressure <130/80, Incorporates diet changes & exercise for blood pressure control by DC, Other additional outcomes/goals Interventions/plan: Instruct on optimal blood pressure, hypertension & medications, Instruct on effects of sodium, alcohol, stress, exercise &hypertension, Other additional plan/interventions 30 day Reassessments:: Progressing - Tobacco Cessation Referral Smoking Cessation Referral:: No Individual Education/Counseling:: No Education Schedule Given:: Yes Medical- 60-Day Assessment Medical- 90-Day Assessment Medical - Final Assessment Psychosocial - Initial Assess Psychosocial - 30-Day Assess - VIsit Date of Eval: 06/07/21 Session #:: 8 Not Applicable: Yes History of previous Mental disease:: No - Outcomes/Goals: See list Psychosocial Outcomes/Goals:: ID's personal stressors & 2 strategies to manage stress by discharge, Other Additional outcome/goals: - Intervention/Plan: See List Interventions/Plan:: Assess stressors,coping strategies & signs of derpression on admission, Instruct/assist pt to develop coping & personal stress Mgt strategies, Refer to Behavioral Health if appropriate, Refer to Physician if appropriate, Instruct patient to recognize signs & symptoms of depression, Instruct patient to recog, Other additional plan/intervention - 30-day Reassessments: 30 day Reassessments:: Progressing Psychosocial - 60-Day Assess Psychosocial - 90-Day Assess Psychosocial - Final Assessmen Patient Health Questionnaire 30-Day Re-eval Assessment 1. Little interest or pleasure in doing things: Nearly every day 2. Feeling down, depressed, or hopeless: Several days 3. Trouble falling or staying asleep, or sleeping too much: More than half the days 4. Feeling tired or having little energy: Nearly every day 5. Poor appetite or overeating: Several days 6. Feeling bad about yourself -- or that you are a failure or have let yourself or your family down: Several days 7. Trouble concentrating on things, such as reading the newspaper or watching television: Several days 8. Moving or speaking so slowly that other people could have noticed. Or the opposite - being so fidgety or restless that you have been moving around a lot more than usual: Not at all 9. Thoughts that you would be better off , or of hurting yourself in some way: Not at all How difficult have these problems made it for you to do your work, take care of things at home, or get along with other people?: Extremely difficult Total Score: 12 Self-Efficacy 30-Day Re-eval Assessment We would like to know how confident you are in doing certain activities. Please select your confidence level for:: Select your confidence level for the following using the scale 1-10 where 1 is not at all confident and 10 is totally confident. Your score is the average of all 6 responses. Fatigue: How confident are you that you can keep the fatigue caused by your disease from interfering with the things you want to do? Select Number: 1 Physical Discomfort or Pain: How confident are you that you can keep the physical discomfort or pain of your disease from interfering with the things you want to do? Select Number: 1 Emotional Distress: How confident are you that you can keep the emotional distress caused by your disease from interfering with the things you want to do? Select Number: 2 Other Symptoms or Health Problems: How confident are you that you can keep other symptoms or health problems from interfering with the things you want to do? Select Number: 2 Different Tasks and Activities: How confident are you that you can do the different tasks and activities needed to manage your health condition so as to reduce your need to see a doctor? Medication: How confident are you that you can do things other than just taking medication to reduce how much your illness affects your everyday life? Select Number: 5 Nutrition Survey
[2021-06-07 10:06] VITALS: BP 108/72; BP 160/90; BMI 36.2
== END 2021-06-27 23:59 ==
LOC: CR 15:15
PROVIDERS: PCP Family Medicine; Referring Provider Internal Medicine Cardiovascular Disease; Visit Provider Internal Medicine Cardiovascular Disease
DX: Z95.5 Presence of coronary angioplasty implant and graft (principal); I21.4 Non-ST elevation (NSTEMI) myocardial infarction; I10 Essential (primary) hypertension; E78.2 Mixed hyperlipidemia; E66.01 Morbid (severe) obesity due to excess calories; Z68.35 Body mass index [BMI] 35.0-35.9, adult; E11.65 Type 2 diabetes mellitus with hyperglycemia
CPT/HCPCS: 93798

== ENCOUNTER 2021-06-28 10:44 | Outpatient (RCR) | payer MEDICAID, SELFPAY ==
[2021-06-07 10:06] VITALS: BMI 36.2
[2021-06-28 00:40] VITALS: BP 108/72; BP 160/90; BMI 35.8
--- NOTE | 2021-07-06 05:14 | PCM.CR.ITP ---
Diagnosis Exercise - 60-day Assessment - Visit Date of Eval: 07/06/21 Session #:: 19 Comments:: Patient has been No Call /NO Show for 10 scheduled sessions to date. - Physician Prescribed Exercise Modalities: Treadmill, Rower, Airdyne Frequency: 3x/week for 12 weeks [36 sessions] Intensity: 60-80% of age predicted maximum heart rate reserve Current METSs:: 5.5 increase from 4.5 Goal is 7 METs Target Heart Rate:: 113-148 Current RPE:: 12-13 Maximum Excercise HR:: 104 Resting Blood Pressure: 98/60 Maximum Exercise Blood Pressure: 144/78 EKG Type: NSR without ectopy Current Physical Activity or Exercising minutes: 30-45 - Outcomes & Goals Goals:: Verbalizes understanding of THR, RPE & goal METS by session 6, Documents in home exercise log/reports 30 min aerobic 5 day/wk by DC, Demonstrates accurate pulse taking by DC - Intervention & Plan Exercise Program Goals: Instruct on personal THR & RPE, Instruct on MET level & personal MET goal, Show patient to take own pulse /validate performance until accurate, Instruct on home exercise - 30-day Reassessments 30 day Reassessments:: Progressing - Physical Activity Home Exercise Physical Activity - Home Exercise: Safe Exercise, Warm-up, Self-monitoring, Cool-Down, Home Exercise > 30 min Daily, Sitting Time <3 hours/daily - Outcomes & Goals Outcomes/Goals: Demonstrates correct Warm-up/exercise Cool-Down (S3) if = 2.5 METs, Verbalizes symptoms of exercise intolerance by Session 3 (S3), Demonstrate safe equipment use (S3) & follows exercise prescrition (6) - Intervention & Plan Plan/Intervention: Instruct warm-up & cool-down if exercising at > 2 METs, Instruct on symptoms of exercise intolerance & actions to take, Instruct & monitor on saf, Assess intial functional capacity & safety risk - 30-day Reassessments 30 day Reassessments:: Progressing Nutrition - Initial Assessment Nutrition - 30-Day Assessment Nutrition - 60-Day Assessment - Program Goals Nutrition Program Goals: LDL <100 optimal. 100 - 129 Near optimal. 130 - 159 Borderline High. 160 - 189 High. Total Cholesterol <200 desirable. 200 - 239 Borderline High. >/= 240 High. HDL < 40 Low >/=60 High. Triglycerides <150 desirable. <199 optimal. VlDL 5 - 40. HgbA1C <7%. BMI <25 Patient has diagnosis of Hyperlipidemia (ICD E78)?: Yes - Visit Date of Assessment:: 07/06/21 Session #:: 19 - Cholesterol/Lipids Triglycerides (mg/dL): 104 - 04/26/2021 Total Cholesterol (mg/dL): 156 LDL Cholesterol (mg/dL): 100 HDL Cholesterol (mg/dL): 35 Determine presence & major risk factors that modify LDL goal: Hypertension or hypertensive medication, Low HDL cholesterol <40 mg/dL*, Age men > 45 years; women >/= 55 years Outcomes/Goals: Pt IDs own risk factors & lifestyle modifications by Session 10, Verbalizes symptoms of angina & response by session 3., Pt independently manages Intervention/Plan: Instruct on personal lipid levels & lipid goals/NCEP guidelines, Instruct on cholesterol Referral to dietitian:: Yes - Medical Nutrition Therapy 30-day Reassessments:: Progressing Reassessment Notes & Comments:: Nutrition Services has been unable to reach the patient. - Diabetes (Other Core Measures) Diabetes Type: Not Applicable - Weight Mgt (Other Care) Not Applicable: No Height: 5 ft 11 in Weight:: 260 lb BMI: 36.2 Diagnosis Overweight/Obesity BMI> 30% ICD-10 E66: Yes Diagnosis High BMI/Morbid Obesity BMI> 35% ICD-10 Z68: Yes Outcomes/Goals: Pt sets, maintains & shows weight loss goal & trend during rehab Intervention/Plan: Instruct on ideal BMI & set weight loss goal w/patient, Assist pt to ID & incorporate diet changes for weight loss by S9, Refer to Struct[facility] Weight Loss program as appropriate, Encourage goal of using 250-300dcal per session for weight loss 30 day Reassessments:: Not Met - No weight loss this 30-day period. - Healthy Eating Habits Will attend diet classes:: Yes Outcomes/Goals:: Consume diet rich in vegs,fruits,whole grain/high fiber,fish,lean meat, Limit sat/trans fats,cholesterol & added salts & sugars Intervention/Plan:: Assess current eating habits 30-day Reassessments:: Not Met - Education Gave educational materials for:: Healthy eating Nutrition - 90-Day Assessment Nutrition - Final Assessment Medical - Initial Assessment Medical- 30-Day Assessment Medical- 60-Day Assessment - Visit Date of Eval: 07/06/21 Session #:: 19 - Medication Compliance Preventative Medication(s):: Aspirin, Ticagrelor/P2Y12 inhibitor, Statin/lipid, Beta flo H/O mental health issues: depression, anxiety, or addiction?: No Doesn?t believe in the benefits of treatment?: No Believes medications are unnecessary or harmful?: No Has a concern about medication side effects?: No Expresses concern over the cost of medications?: No Outcomes/Goals: Verbalizes medications,desired effect & common side effects @ DC, Pt self-reports following medication regimen, Keeps card in wallet w/medications listed by DC Interventions/plans: Instruct on medication effects & side effects, Review medication list w/patient every two weeks, Instruct importance of taking meds as ordered & assist problem solving 30-day Reassessments:: Met - Tobacco Use Tobacco Use: Non-smoker - Hypertension Hypertension Diagnosis:: Hypertension ICD-10 I10 Resting Blood Pressure:: 98/60 [place] [employer] Hypertension Guidelines: [place] [employer] Hypertension Guidelines. Normal BP Less than 120/80. Elevated BP 120/80. Hypertension Stage 1: BP 130-139/80-89. Hypertesnion Stage 2: BP 140 or higher/90 or higher. Hypertension Crisis: BP higher than 180/120 Peak Exercise Blood Pressure:: 144/78 - on the [employer] Airdyne cycle Outcomes/Goals: Able to verbalize/achieve optimal blood pressure <130/80, Incorporates diet changes & exercise for blood pressure control by DC Interventions/plan: Instruct on optimal blood pressure, hypertension & medications, Instruct on effects of sodium, alcohol, stress, exercise &hypertension 30 day Reassessments:: Met - Tobacco Cessation Referral Smoking Cessation Referral:: No Individual Education/Counseling:: No Education Schedule Given:: Yes Medical- 90-Day Assessment Medical - Final Assessment Psychosocial - Initial Assess Psychosocial - 30-Day Assess Psychosocial - 60-Day Assess - VIsit Date of Eval: 07/06/21 Session #:: 19 Not Applicable: Yes History of previous Mental disease:: No - Psychosocial Test Tool Used:: PHQ-9 Questionnaire phq-9 Severity: Severity. 1-4 Minimal Depression. 5-9 Mild Depression. 10-14 Moderate Depression. 15-19 Moderately Sever Depression. 20-27 Severe Depression. Rule: - Referral to Behavioral Health PS - Interventions: Yes Attend Stress Management Classes, No Referral to Behavioral Health if PHQ-9 score >9:, No Referral to [facility], No Referral to Physician if PHQ-9 if score is 5-9: - Outcomes/Goals: See list Psychosocial Outcomes/Goals:: ID's personal stressors & 2 strategies to manage stress by discharge - Intervention/Plan: See List Interventions/Plan:: Assess stressors,coping strategies & signs of derpression on admission, Instruct/assist pt to develop coping & personal stress Mgt strategies, Instruct patient to recognize signs & symptoms of depression, Instruct patient to recog - 30-day Reassessments: 30 day Reassessments:: Met Psychosocial - 90-Day Assess Psychosocial - Final Assessmen Patient Health Questionnaire 60-Day Re-eval Assessment 1. Little interest or pleasure in doing things: More than half the days 2. Feeling down, depressed, or hopeless: Not at all 3. Trouble falling or staying asleep, or sleeping too much: Several days 4. Feeling tired or having little energy: More than half the days 5. Poor appetite or overeating: Not at all 6. Feeling bad about yourself -- or that you are a failure or have let yourself or your family down: Not at all 7. Trouble concentrating on things, such as reading the newspaper or watching television: Not at all 8. Moving or speaking so slowly that other people could have noticed. Or the opposite - being so fidgety or restless that you have been moving around a lot more than usual: Not at all 9. Thoughts that you would be better off , or of hurting yourself in some way: Not at all How difficult have these problems made it for you to do your work, take care of things at home, or get along with other people?: Somewhat difficult Total Score: 5 Self-Efficacy 60-Day Re-eval Assessment We would like to know how confident you are in doing certain activities. Please select your confidence level for:: Select your confidence level for the following using the scale 1-10 where 1 is not at all confident and 10 is totally confident. Your score is the average of all 6 responses. Fatigue: How confident are you that you can keep the fatigue caused by your disease from interfering with the things you want to do? Select Number: 5 Physical Discomfort or Pain: How confident are you that you can keep the physical discomfort or pain of your disease from interfering with the things you want to do? Select Number: 6 Emotional Distress: How confident are you that you can keep the emotional distress caused by your disease from interfering with the things you want to do? Select Number: 5 Other Symptoms or Health Problems: How confident are you that you can keep other symptoms or health problems from interfering with the things you want to do? Select Number: 5 Different Tasks and Activities: How confident are you that you can do the different tasks and activities needed to manage your health condition so as to reduce your need to see a doctor? Select Number: 7 Medication: How confident are you that you can do things other than just taking medication to reduce how much your illness affects your everyday life? Select Number: 8 Total Score:: 6 Nutrition Survey
[2021-07-06 05:25] VITALS: BP 144/78; BP 98/60; BMI 36.2
== END 2021-07-27 23:59 ==
LOC: CR 10:44
PROVIDERS: PCP Family Medicine; Referring Provider Internal Medicine Cardiovascular Disease; Visit Provider Internal Medicine Cardiovascular Disease
DX: Z95.5 Presence of coronary angioplasty implant and graft (principal); I21.4 Non-ST elevation (NSTEMI) myocardial infarction; I10 Essential (primary) hypertension; E78.2 Mixed hyperlipidemia; E66.01 Morbid (severe) obesity due to excess calories; E11.65 Type 2 diabetes mellitus with hyperglycemia; Z68.35 Body mass index [BMI] 35.0-35.9, adult
CPT/HCPCS: 93798

== ENCOUNTER 2021-07-19 09:49 | Outpatient (RCR) | payer MEDICAID, SELFPAY ==
[2021-05-09 09:58] VITALS: BMI 21.5
[2021-05-09 10:08] VITALS: BMI 22.1
== END 2021-07-27 23:59 ==
LOC: DC 09:49
PROVIDERS: PCP Family Medicine; Visit Provider Internal Medicine Cardiovascular Disease
DX: E11.9 Type 2 diabetes mellitus without complications (principal); I10 Essential (primary) hypertension; E78.5 Hyperlipidemia, unspecified; Z68.35 Body mass index [BMI] 35.0-35.9, adult
CPT/HCPCS: G0108

== ENCOUNTER 2021-08-11 15:35 | Emergency (ER) | payer MEDICAID, SELFPAY ==
[2021-08-11 15:36] VITALS: BP 120/89; PULSE 59; PULSE 65; RESP 16; TEMP 36.8; O2SAT 100; O2SAT 99; BMI 37.8
--- NOTE | 2021-08-11 16:29 | ED.RN ---
Reports blurred vision with both eyes open. When one eye closes, they are not blurry. Did have right hand numbness and tingling, None at this time.
--- NOTE | 2021-08-11 16:39 | EKG12_ITS ---
Test Reason : NUMB/TINGLING Blood Pressure : / mmHG Vent. 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
--- NOTE | 2021-08-11 16:39 | CT_ITS ---
STUDY: CT BRAIN WITHOUT CONTRAST REASON FOR EXAM: Male, 46 years old. Blurred vision RADIATION DOSAGE (If Supplied By Facility): CTDIvol = ( 38.43 ) mGy, DLP = ( 741.51 ) mGycm TECHNIQUE: Transaxial CT imaging of the brain was performed without administration of intravenous contrast material. Individualized dose optimization techniques were used for this CT. COMPARISON: 15 August 2015 FINDINGS: Brain parenchyma is without focal lesions, mass effect, acute intracranial hemorrhage, extra parenchymal fluid collections, hydrocephalus or herniation. The skull is intact. CT/Brain/Head without Contrast IMPRESSION: 1. Normal CT brain. Electronically Signed: Liliam Quezada MD at 17:27 EDT Tel , Service support ,
--- NOTE | 2021-08-11 16:40 | EX.ED.DYSGE1 ---
HPI History of Present Illness Chief Complaint: Numb/Ting Detail of Chief Complaint: Blurred vision Informant: patient Narrative Narrative: Patient presents to the emergency department with complaint of blurred vision that he first noticed yesterday morning when he woke up. Patient states that if he closes one eye the vision clears and if he closes the opposite eye the vision looks clear however when he looks with both eyes things appear blurry. Patient denies headache. He denies head trauma. Patient also complaining since yesterday of intermittent episodes of paresthesias to the the fingers of both hands specifically the thumb, index, and long finger. Patient has history of diabetes, hypertension, high cholesterol, and coronary artery disease. Prior similar symptoms: No [facility] Medical History (Updated 08/11/21 @ 18:[address] Mina Clinton, ) Anxiety Atherosclerosis of coronary artery without angina pectoris Cataract Depression Diabetes Diabetes Diabetes mellitus type II, uncontrolled Essential hypertension Gastroesophageal reflux History of anxiety History of non-ST elevation myocardial infarction (NSTEMI) (04/21/21) Kidney stones Obesity Obesity Substance abuse Home Medications fluoxetine 40 mg PO DAILY 02/13/20 [History Last Taken 04/21/21] insulin glargine 28 unit SQ DAILY 02/13/20 [History Last Taken 04/21/21] albuterol sulfate 90 mcg/actuation aerosol inhaler 90 mcg INHALATION PRN PRN 02/16/21 [History Last Taken Unknown] aspirin 81 mg PO BREAKFAST #30 tab 04/25/21 [Rx Last Taken Unknown] nitroglycerin 0.4 mg SUBLINGUAL Q5M PRN #30 tab 04/25/21 [Rx Last Taken Unknown] atorvastatin 40 mg tablet 40 mg PO DAILY #90 tab 05/12/21 [Rx Last Taken Unknown] isosorbide mononitrate 30 mg tablet,extended release 24 hr 30 mg PO DAILY #90 tab 05/12/21 [Rx Last Taken Unknown] lisinopril 20 mg tablet 20 mg PO DAILY #90 tab 05/12/21 [Rx Last Taken Unknown] metoprolol succinate 25 mg tablet,extended release 24 hr 25 mg PO DAILY #90 tab 05/12/21 [Rx Last Taken Unknown] omeprazole 20 mg capsule,delayed release 20 mg PO DAILY #90 cap 05/12/21 [Rx Last Taken Unknown] ticagrelor 90 mg tablet 90 mg PO BID #180 tab 05/12/21 [Rx Last Taken Unknown] FreeStyle Lite Strips #100 ea NS 05/26/21 [Rx Last Taken Unknown] insulin aspart U-100 100 unit/mL (3 mL) subcutaneous pen 18 unit SUBCUT TIDCM #15 ml 05/26/21 [Rx Last Taken Unknown] pen needle, diabetic 31 gauge x 1/4 #100 ea 05/26/21 [Rx Last Taken Unknown] levothyroxine 25 mcg tablet tablet PO 07/20/21 [History Last Taken Unknown] pen needle, diabetic 31 gauge x 15/64 #50 ea 07/20/21 [History Last Taken Unknown] Allergy/AdvReac Type Severity Reaction Status Date / Time No Known Allergies Allergy Verified 07/20/21 13:11 Surgical History History of coronary artery stent placement (04/24/21) Social History Smoking Status: Never smoker alcohol intake: current alcohol intake frequency: 0-2 drinks per day substance use type: marijuana what type of physical activity do you participate in: none ROS ROS ED Constitutional Constitutional ED: Reports systems reviewed and no addt'l complaints, except as documented; Denies body ache(s), change in weight or chills Eyes Eyes: Denies acute decrease in peripheral vision, change in vision, double vision or loss of vision ENT ENT ED: Reports none; Denies ear pain, lip swelling, loss taste/smell, neck pain, otalgia or sore throat Cardiovascular Cardiovascular: Reports none; Denies abdominal pain, chest pain with activity, leg edema, lightheadedness, palpitations, rapid heart rate or syncope Respiratory/Chest Respiratory/Chest: Reports none; Denies change in mental status, dry cough, dyspnea, hemoptysis, shortness of breath at rest or shortness of breath with exertion Gastrointestinal Gastrointestinal: Reports none; Denies abdominal pain, change in stool character, diarrhea, hematemesis, hematochezia, melena, rectal bleeding or vomiting Genitourinary Genitourinary ED: Reports none; Denies abdominal discomfort, anuria, dysuria, genital pain or polyuria Musculoskeletal Musculoskeletal: Reports none; Denies arthralgias, back pain, difficulty walking, extremity pain, muscle weakness or myalgias Integumentary Reports none; Denies abscess or rash Neurologic Neurologic: Reports none; Denies abnormal gait, confusion, focal weakness, frequent falls, headache(s), loss of vision, numbness, paresthesias, radicular pain, vertigo or weakness Psychiatric Psychiatric: Reports systems reviewed and no addt'l complaints, except as documented and none; Denies behavioral changes, confusion, difficulty concentrating, hallucinations, suicidal ideation, tactile hallucinations or visual hallucinations Endocrine Endocrinology: Denies none, cold intolerance, excessive sweating, fatigue or heat intolerance Hematologic/Lymphatic Hematologic/Lymphatic: Reports none; Denies anemia, easy bleeding or easy bruising Allergic/Immunologic Allergic/Immunologic ED: Denies as per HPI, none, lip swelling, mouth swelling, throat swelling, tongue swelling or hives EXAM Physical Exam Const Vital Signs: 08/11/21 15:36 08/11/21 17:39 Temperature 98.2 F Temperature Source Temporal Pulse Rate 65 58 L Respiratory Rate 16 14 Blood Pressure 120/89 H 128/77 H Blood Pressure Mean 99 94 Pulse Ox 99 97 Oxygen Delivery Method Room Air Room Air Positive well nourished and well developed General Appearance ED: well developed and NAD HEENT Reports TM's clear and moist mucous membranes normocephalic and atraumatic; Negative for trauma or tenderness Tympanic Membrane ED: Yes TM's clear Eyes PERRL and EOMs intact bilaterally General Eye ED: Negative for pale conjunctiva or scleral icterus Neck no lymphadenopathy, supple and no JVD General: Negative for tenderness Chest Wall inspection of chest normal and palpation of chest normal Chest: Negative for tenderness Resp normal respiratory effort and clear to auscultation bilaterally Effort and Inspection: Negative for respiratory distress or pain with movement Auscultation: Negative for rhonchi, wheezes or diminished lung sounds Cardio regular rate, regular rhythm, S1 normal heart sound, S2 normal heart sound and no murmurs Peripheral Pulses: pulses 2+ throughout GI normal to inspection, nondistended, normoactive bowel sounds, soft to palpation, non-tender, non-distended and no masses Back/Spine no CVA tenderness and no thoracic nor lumbar tenderness Extremity normal to inspection General Extremety ED: Negative for edema General Extremity: Negative for edema Neuro oriented x3, CN's II-XII intact bilaterally, no sensory deficits noted and gait normal Sensorium / Orientation: awake, alert, oriented to person, oriented to place and oriented to time Motor Exam: strength 5/5 throughout and strength abnormal Psych mental status grossly normal Skin no rashes or lesions noted and no wounds MDM MDM MDM Narrative Medical decision making narrative: Patient's work-up essentially unremarkable. His head CT was normal. Etiology of his blurred vision is unclear as he has 20/20 vision with the eyes individually that is corrected however with both eyes he has 20/30 vision. I discussed case with ophthalmology on-call Dr. Keyes who does not feel symptoms consistent with a central stroke. I am in agreement. I do not feel his paresthesias that are bilateral or stroke related but rather peripheral neuropathy. Dr. Keyes felt patient may have change in lens due to recent better control of his blood sugars. He would be happy to see the patient in consultation early next week. Patient advised not to drive if he does not feel safe seeing clearly. Lab Data Attestation: I reviewed the patient's lab results. Labs: Laboratory Results - last 24 hr 08/11/21 08/11/21 08/11/21 16:14 16:54 16:54 WBC 12.3 H RBC 4.94 Hgb 15.1 Hct 45.0 MCV 91.1 MCH 30.6 MCHC 33.6 RDW Std Deviation 42.5 RDW Coeff of Elias 12.8 Plt Count 268 MPV 11.0 Immature Gran % (Auto) 0.500 Neut % (Auto) 65.9 Lymph % (Auto) 21.3 [place] % (Auto) 8.5 Eos % (Auto) 3.3 Baso % (Auto) 0.5 Absolute Neuts (auto) 8.1 H Absolute Lymphs (auto) 2.61 Nucleated RBC % 0 Sodium 138 Potassium 4.1 Chloride 107 Carbon Dioxide 27.0 Anion Gap 4 L BUN 9 Creatinine 0.80 Estim Creat Clear Calc 122.89 Est GFR (MDRD) Af Amer 133 Est GFR (MDRD) Non-Af 110 BUN/Creatinine Ratio 11.2 Glucose 140 H Calcium 9.2 Troponin I High Sens 7 Urine Color Yellow Urine Clarity Sl. Cloudy Urine pH 6.0 Ur Specific [place] 1.015 Urine Protein Negative Urine Glucose (UA) Normal Urine Ketones Negative Urine Occult Blood 10 H Urine Nitrite Negative Urine Bilirubin Negative Urine Urobilinogen Normal Ur Leukocyte Esterase 500 H Urine RBC 0 SEEN Urine WBC 10-25 SEEN Ur Squamous Epith Cells 0-5 SEEN Urine Bacteria 0 SEEN Urine Mucus 0 SEEN Radiography Diagnostic Testing: Clinical Impression(s) from Imaging Studies Brain CT 08/11/21 16:39 IMPRESSION: 1. Normal CT brain. Electronically Signed: Liliam Quezada MD at 17:27 EDT Tel , Service support , EKG Initial EKG: Attestation: I personally reviewed and interpreted this EKG as follows: Comments: Sinus rhythm with a ventricular rate of 56 bpm with old inferior infarct noted. Discharge Plan Triage Chief Complaint: Numb/Ting ED Provider: Mina Clinton Dx/Rx/DC Orders Clinical Impression: Blurred vision Instructions: ED Blurred Vision Prescriptions: No Action albuterol sulfate 90 mcg/actuation HFA aerosol inhaler 90 mcg INHALATION PRN PRN (Reason: Wheezing) RF: 0 levothyroxine 25 mcg tablet PO RF: 0 (DME) pen needle, diabetic 31 gauge x 15/64 needle See Rx Instructions ea .ROUTE .MEDSUPPLY Qty: 50 RF: 0 atorvastatin 40 mg tablet 40 mg PO DAILY Qty: 90 RF: 3 isosorbide mononitrate 30 mg tablet extended release 24 hr 30 mg PO DAILY Qty: 90 RF: 3 lisinopril 20 mg tablet 20 mg PO DAILY Qty: 90 RF: 3 metoprolol succinate 25 mg tablet extended release 24 hr 25 mg PO DAILY Qty: 90 RF: 3 Brilinta 90 mg tablet 90 mg PO BID Qty: 180 RF: 3 omeprazole 20 mg capsule,delayed release(DR/EC) 20 mg PO DAILY Qty: 90 RF: 3 fluoxetine 40 MG capsule 40 mg PO DAILY RF: 0 insulin glargine 100 UNIT/ML insulin pen 28 unit SQ DAILY RF: 0 nitroglycerin 0.4 mg Tablet, Sublingual 0.4 mg sublingual Q5M PRN (Reason: Cardiac/Chest Pain) Qty: 30 RF: 0 aspirin 81 mg Tablet,Chewable 81 mg PO BREAKFAST Qty: 30 RF: 3 insulin aspart U-100 100 unit/mL (3 mL) insulin pen 18 unit subcut TIDCM Qty: 15 RF: 3 (DME) pen needle, diabetic [ReliOn [place]] 31 gauge x 1/4 needle See Rx Instructions .ROUTE .MEDSUPPLY Qty: 100 RF: 6 (DME) FreeStyle Lite Strips Strip See Rx Instructions .ROUTE .MEDSUPPLY Qty: 100 RF: 6 Primary Care Provider: Darinel Armstrong Referrals: Darinel Armstrong MD [Primary Care Provider] - Ian Keyes MD [STAFF PHYSICIAN] - 08/14/21 Disposition Disposition: Home, Self Care
[2021-08-11] MEDS: 0.9% Normal Saline 1,000 ML 150 ML IV (16:57)
[2021-08-11 17:05] LABS: Absolute Lymphocyte Count 2.61 X10^3/uL (0.83-4.51); Absolute Neutrophil Count 8.1 X10^3/uL (2.0-7.7); Basophil# 0.06 X10^3/uL; Basophil% 0.5 % (0-1); Eosinophils% 3.3 % (0-5); Hemoglobin 15.1 g/dL (13.0-16.5); Lymphocyte # 2.61 X10^3/ul (0.83-4.51); Lymphocyte % 21.3 % (19-41); Mean Corp Hgb Conc 33.6 g/dL (32-36); Mean Corpuscular Hgb 30.6 pg (27.0-32.0); Mean Corpuscular Volume 91.1 fL (80-94); Monocyte# 1.04 X10^3/uL; Monocyte% 8.5 % (0-10); NRBC Flagged by Analyzer 0 % (0-5); Neutrophil # 8.09 X10^3/uL (2.7-7.7); Neutrophil % 65.9 % (47-70); Platelet Count 268 K/mm3 (150-450); RBC Distribution Width CV 12.8 % (11.6-14.6); RBC Distribution Width SD 42.5 fl (35.1-43.9); Red Blood Count 4.94 M/mm3 (4.6-6.2); White Blood Count 12.3 K/mm3 (4.4-11.0)
[2021-08-11 17:21] LABS: Bacteria 0 SEEN /hpf (None Seen); Mucous, Urine 0 SEEN /hpf (<or=2+); Red Blood Cells-Urine 0 SEEN /hpf (0-5)
[2021-08-11 17:25] LABS: Anion Gap 4 (5-15); BUN 9 mg/dL (7-18); BUN/Creat Ratio 11.2 RATIO (10-20); Calcium,Total 9.2 mg/dL (8.5-10.1); Chloride 107 mmol/L (98-107); EST Glomerular Filtration Rate 110 mL/min (>60); Est Glom Filt Rate - Afr Amer 133 mL/min (>60); Estimated Creatinine Clearance 122.89 ml/min; Glucose 140 mg/dL (74-106); Potassium 4.1 mmol/L (3.5-5.1); Sodium Level 138 mmol/L (136-145); Troponin-I HS 7 pg/mL (3.0-78.0)
[2021-08-11 17:28] LABS: Color, Urine Yellow (Yellow); Glucose, Dipstick Normal (Normal); Ketone-Dipstick Negative (Negative); Leukocyte Esterase-Dipstick 500 /ul (Negative); Nitrite-Dipstick Negative (Negative); Occult Blood-Urine 10 /ul (Negative); Protein-Dipstick Negative (Negative); Specific Gravity, Urine 1.015 (1.002-1.030); Urine Bilirubin Dipstick Negative (Negative); Urine Clarity Sl. Cloudy (Clear); Urine Urobilinogen Normal (Normal)
[2021-08-11 17:39] VITALS: BP 128/77; PULSE 58; RESP 14; O2SAT 97
[2021-08-11 17:48] LABS: Squamous Epithelial Cells - UA 0-5 SEEN /hpf (0-5); White Blood Cells 10-25 SEEN /hpf (0-5)
== END 2021-08-11 18:10 | disposition home or self-care (01) ==
PROVIDERS: Emergency Provider Emergency Medicine; PCP Family Medicine
DX: H53.8 Other visual disturbances (principal); E11.42 Type 2 diabetes mellitus with diabetic polyneuropathy; R20.2 Paresthesia of skin; I25.10 Atherosclerotic heart disease of native coronary artery without angina pectoris; E11.65 Type 2 diabetes mellitus with hyperglycemia; I10 Essential (primary) hypertension; E78.00 Pure hypercholesterolemia, unspecified; K21.9 Gastro-esophageal reflux disease without esophagitis; F32.A Depression, unspecified; F41.9 Anxiety disorder, unspecified; E66.9 Obesity, unspecified; Z79.4 Long term (current) use of insulin; Z79.82 Long term (current) use of aspirin; Z79.899 Other long term (current) drug therapy; I25.2 Old myocardial infarction; Z95.5 Presence of coronary angioplasty implant and graft
CPT/HCPCS: 70450; 80048; 81001; 84484; 85025; 93005; 96360; 99285

== ENCOUNTER 2021-08-16 11:57 | Emergency (ER) | payer MEDICAID, SELFPAY ==
[2021-08-16 11:58] VITALS: BP 126/84; PULSE 60; RESP 18; TEMP 36.8; O2SAT 99; BMI 37.3
--- NOTE | 2021-08-16 12:22 | MRI_ITS ---
STUDY: MRI BRAIN WITHOUT CONTRAST REASON FOR EXAM: Male, 46 years old. cva, headache, double vision TECHNIQUE: Standardized multiplanar fat and water weighted pulse sequences were obtained. COMPARISON: CT 08/11/2021 FINDINGS: Normal size of the ventricles and extra-axial spaces for the patient''s age. Normal white matter tracts of the supratentorial brain. There is no evidence for recent intracranial ischemia or other cause of cytotoxic edema on diffusion weighted imaging (DWI). Normal T2* images of the brain without demonstrated susceptibility artifact. There is no demonstrated hemosiderin stain. Normal bilateral basal ganglia. Normal thalami. There is no extra-axial fluid accumulation. Normal flow voids within the major intracranial circulation suggesting patency by spin echo criteria. Normal sella turcica, pituitary gland, infundibular stalk, optic chiasm and hypothalamus. Normal tectal plate and pineal gland. Normal midbrain, maurilio and medulla. Normal cerebellum. Normal basal cisterns. Normal bilateral temporal bones. Normal bilateral internal auditory canals. No demonstrated orbital abnormality, within the constraints of a routine brain study. Normal visualized paranasal sinuses. Normal calvarium and skull base. Normal visualized soft tissue structures. Normal visualized upper cervical spine. MRI/Brain without Contrast IMPRESSION: Normal unenhanced MRI of the brain. Electronically Signed: Trenton Cherry MD at 15:47 EDT Tel , Service support ,
--- NOTE | 2021-08-16 12:36 | EX.ED.DYSGE1 ---
HPI History of Present Illness Chief Complaint: Headache Narrative Narrative: Patient presents with a headache. This started 2 days ago, about 7 days ago he started having double vision, he was seen in the ED and subsequently by ophthalmology who diagnosed cranial nerve palsy. He developed gradual onset of left-sided headache. The headache was gradual in onset and not sudden. It is a ache. He has no fever chills or neck pain or neck stiffness. No neurological symptoms like weakness paresthesias speech difficulty or confusion. [facility] Medical History (Updated 08/16/21 @ 14:[address] Denny Alejandro MD) Anxiety Atherosclerosis of coronary artery without angina pectoris Cataract Depression Diabetes Diabetes Diabetes mellitus type II, uncontrolled Essential hypertension Gastroesophageal reflux History of anxiety History of non-ST elevation myocardial infarction (NSTEMI) (04/21/21) Kidney stones Obesity Obesity Substance abuse Home Medications fluoxetine 40 mg PO DAILY 02/13/20 [History Last Taken 04/21/21] albuterol sulfate 90 mcg/actuation aerosol inhaler 90 mcg INHALATION PRN PRN 02/16/21 [History Last Taken Unknown] aspirin 81 mg PO BREAKFAST #30 tab 04/25/21 [Rx Last Taken Unknown] nitroglycerin 0.4 mg SUBLINGUAL Q5M PRN #30 tab 04/25/21 [Rx Last Taken Unknown] atorvastatin 40 mg tablet 40 mg PO DAILY #90 tab 05/12/21 [Rx Last Taken Unknown] isosorbide mononitrate 30 mg tablet,extended release 24 hr 30 mg PO DAILY #90 tab 05/12/21 [Rx Last Taken Unknown] lisinopril 20 mg tablet 20 mg PO DAILY #90 tab 05/12/21 [Rx Last Taken Unknown] metoprolol succinate 25 mg tablet,extended release 24 hr 25 mg PO DAILY #90 tab 05/12/21 [Rx Last Taken Unknown] omeprazole 20 mg capsule,delayed release 20 mg PO DAILY #90 cap 05/12/21 [Rx Last Taken Unknown] ticagrelor 90 mg tablet 90 mg PO BID #180 tab 05/12/21 [Rx Last Taken Unknown] FreeStyle Lite Strips #100 ea NS 05/26/21 [Rx Last Taken Unknown] insulin aspart U-100 100 unit/mL (3 mL) subcutaneous pen 18 unit SUBCUT TIDCM #15 ml 05/26/21 [Rx Last Taken Unknown] pen needle, diabetic 31 gauge x 1/4 #100 ea 05/26/21 [Rx Last Taken Unknown] levothyroxine 25 mcg tablet tablet PO 07/20/21 [History Last Taken Unknown] pen needle, diabetic 31 gauge x 15/64 #50 ea 07/20/21 [History Last Taken Unknown] insulin glargine 100 unit/mL (3 mL) subcutaneous pen 28 unit SUBCUT DAILY #9 ml 08/14/21 [Rx Last Taken Unknown] Allergy/AdvReac Type Severity Reaction Status Date / Time No Known Allergies Allergy Verified 08/16/21 11:59 Surgical History History of coronary artery stent placement (04/24/21) Social History Smoking Status: Never smoker alcohol intake: current alcohol intake frequency: 0-2 drinks per day substance use type: marijuana what type of physical activity do you participate in: none ROS ROS ED ROS Narrative Past medical history: Reviewed, includes diabetes hypertension and hypercholesterolemia. Medications: Reviewed Social history: Noncontributory Review of systems: All systems negative except as indicated General: No fever Eyes: As in HPI ENT: No upper airway congestion, normal voice Neck: No neck pain Cardiovascular: No chest pain Respiratory: No shortness of breath or cough Gastrointestinal: No abdominal pain, nausea vomiting or diarrhea Genitourinary: No dysuria Musculoskeletal: Denies myalgias no difficulty with ambulation Skin: No rash Neurological: No memory loss, confusion or any focal weakness Psych: No recent behavioral changes Hematologic: No easy bleeding or easy bruising EXAM Physical Exam Narrative Exam Narrative: Physical exam General: Well nourished, Well developed, No Acute Distress Head: Normocephalic, Atraumatic Eyes: Conjunctiva not pale. Pupils are equal and reactive. Overall cranial nerves are intact and I do not appreciate an obvious cranial nerve 6 palsy on my exam. ENT: Moist mucous membranes Neck: Supple, Nontender, No lymphadenopathy Cardiovascular: Regular rate, Regular rhythm Respiratory: No distress, CTA bilaterally Abdomen: Soft, Nontender, Nondistended Back: Nontender, Normal Inspection. Negative for: CVA tenderness Extremities: Nontender, No edema Skin: Normal color, No rash Neurological: Alert, Normal Strength, Normal Sensation Psychological: Normal affect Const Vital Signs: 08/16/21 11:58 08/16/21 16:38 Temperature 98.2 F Temperature Source Temporal Pulse Rate 60 71 Respiratory Rate 18 16 Blood Pressure 126/84 H 137/79 H Blood Pressure Mean 98 Pulse Ox 99 98 Oxygen Delivery Method Room Air MDM MDM Radiography Diagnostic Testing: Clinical Impression(s) from Imaging Studies Brain MRI 08/16/21 12:22 IMPRESSION: Normal unenhanced MRI of the brain. Electronically Signed: Trenton Cherry MD at 15:47 EDT Tel , Service support , Patient's symptoms improved but I will do an MRI on him. This will be turned over to the oncoming ED physician. Discharge Plan Triage Chief Complaint: Headache ED Provider: Denny Alejandro Dx/Rx/DC Orders Clinical Impression: Headache, Cranial nerve palsy Instructions: ED Headache Unspecified Prescriptions: No Action albuterol sulfate 90 mcg/actuation HFA aerosol inhaler 90 mcg INHALATION PRN PRN (Reason: Wheezing) RF: 0 levothyroxine 25 mcg tablet PO RF: 0 (DME) pen needle, diabetic 31 gauge x 15/64 needle See Rx Instructions ea .ROUTE .MEDSUPPLY Qty: 50 RF: 0 atorvastatin 40 mg tablet 40 mg PO DAILY Qty: 90 RF: 3 isosorbide mononitrate 30 mg tablet extended release 24 hr 30 mg PO DAILY Qty: 90 RF: 3 lisinopril 20 mg tablet 20 mg PO DAILY Qty: 90 RF: 3 metoprolol succinate 25 mg tablet extended release 24 hr 25 mg PO DAILY Qty: 90 RF: 3 Brilinta 90 mg tablet 90 mg PO BID Qty: 180 RF: 3 omeprazole 20 mg capsule,delayed release(DR/EC) 20 mg PO DAILY Qty: 90 RF: 3 fluoxetine 40 MG capsule 40 mg PO DAILY RF: 0 nitroglycerin 0.4 mg Tablet, Sublingual 0.4 mg sublingual Q5M PRN (Reason: Cardiac/Chest Pain) Qty: 30 RF: 0 aspirin 81 mg Tablet,Chewable 81 mg PO BREAKFAST Qty: 30 RF: 3 insulin aspart U-100 100 unit/mL (3 mL) insulin pen 18 unit subcut TIDCM Qty: 15 RF: 3 (DME) pen needle, diabetic [[employer]eli[employer] [place]] 31 gauge x 1/4 needle See Rx Instructions .ROUTE .MEDSUPPLY Qty: 100 RF: 6 (DME) FreeStyle Lite Strips Strip See Rx Instructions .ROUTE .MEDSUPPLY Qty: 100 RF: 6 insulin glargine 100 unit/mL (3 mL) insulin pen 28 unit subcut DAILY Qty: 9 RF: 3 Primary Care Provider: Darinel Armstrong Referrals: Darinel Armstrong MD [Primary Care Provider] - 1 Week if not improving Activity Restrictions/Additional Instructions: Your MRI was read as normal today. Follow-up with your doctor if not improving. Disposition Disposition: Home, Self Care Discharge Date/Time: 08/16/21 16:39
[2021-08-16] MEDS: DiphenhydrAMINE 50 MG/ML Syringe 25 MG IV (12:56)
[2021-08-16] MEDS: Ketorolac 15 MG/ML Vial IV (12:56)
[2021-08-16] MEDS: Metoclopramide 10 MG/2 ML Vial IV (12:56)
[2021-08-16 16:38] VITALS: BP 137/79; PULSE 71; RESP 16; O2SAT 98
== END 2021-08-16 16:39 | disposition home or self-care (01) ==
PROVIDERS: Emergency Provider Emergency Medicine; PCP Family Medicine
DX: R51.9 Headache, unspecified (principal); H49.20 Sixth [abducent] nerve palsy, unspecified eye; I25.10 Atherosclerotic heart disease of native coronary artery without angina pectoris; E11.65 Type 2 diabetes mellitus with hyperglycemia; E11.36 Type 2 diabetes mellitus with diabetic cataract; I10 Essential (primary) hypertension; E78.00 Pure hypercholesterolemia, unspecified; K21.9 Gastro-esophageal reflux disease without esophagitis; E66.9 Obesity, unspecified; F32.A Depression, unspecified; F41.9 Anxiety disorder, unspecified; Z79.02 Long term (current) use of antithrombotics/antiplatelets; Z79.82 Long term (current) use of aspirin; Z79.4 Long term (current) use of insulin; Z79.890 Hormone replacement therapy; I25.2 Old myocardial infarction; Z86.73 Personal history of transient ischemic attack (TIA), and cerebral infarction without residual deficits; Z95.5 Presence of coronary angioplasty implant and graft
CPT/HCPCS: 70551; 96374; 96375; 99285; A4216

== ENCOUNTER 2021-08-22 10:30 | Outpatient (RCR) | payer MEDICAID, SELFPAY ==
[2021-07-28 00:07] VITALS: BMI 22.1
== END 2021-08-27 23:59 ==
LOC: DC 10:30
PROVIDERS: PCP Family Medicine; Visit Provider Internal Medicine Cardiovascular Disease
DX: E11.9 Type 2 diabetes mellitus without complications (principal); I10 Essential (primary) hypertension; E78.5 Hyperlipidemia, unspecified; Z68.35 Body mass index [BMI] 35.0-35.9, adult
CPT/HCPCS: 97802; G0108

== ENCOUNTER → 2021-08-28 12:32 | Outpatient (CLI) | payer MEDICAID, SELFPAY ==
--- NOTE | 2021-08-28 12:52 | MRI_ITS ---
STUDY: MRA OF THE HEAD WITHOUT CONTRAST REASON FOR EXAM: Male, 46 years old. CRANIAL NERVE DISORDER,BRODERICK TECHNIQUE: 3-D eits-sy-sdzdig (TOF) imaging was performed with MIPs. The study was performed unenhanced. COMPARISON: 08/17/2015 FINDINGS: Normal bilateral petrous carotid arteries. Normal right cavernous carotid artery with a normal supraclinoid bifurcation. Normal left cavernous carotid artery with a normal supraclinoid bifurcation. Normal right A1 segments of the anterior cerebral artery. Normal left A1 segments of the anterior cerebral artery. Normal intact anterior communicating artery (ACOM). Normal bilateral A2 segments of the anterior cerebral arteries. Normal right M1 and M2 segments of the middle cerebral arteries, with a normal M1 bifurcation. Normal left M1 and M2 segments of the middle cerebral arteries, with a normal M1 bifurcation. Normal right posterior communicating artery (PCOM). Normal left posterior communicating artery (PCOM). Normal bilateral vertebral arteries. Normal basilar artery with a normal basilar bifurcation. The visualized bilateral superior cerebellar (SCA) arteries are normal. Normal bilateral P1, P2 and visualized P3 segments of the posterior cerebral arteries. There is no demonstrated aneurysm of the [place]. There is no major vessel occlusion or hemodynamically significant stenosis. There is no demonstrated abnormality of the visualized brain. MRI/MRA Head ONLY without Contrast IMPRESSION: Normal MRA of the head Electronically Signed: Trenton Cherry MD at 14:54 EDT Tel , Service support ,
--- NOTE | 2021-08-28 12:52 | MRI_ITS ---
STUDY: MRI BRAIN WITH AND WITHOUT CONTRAST REASON FOR EXAM: Male, 46 years old. CRANIAL NERVE DISORDER,DIPLOPIA,BRODERICK TECHNIQUE: Standardized multiplanar fat and water weighted pulse sequences were obtained. IV 25 cc dotarem was administered for the contrast portion of the examination. COMPARISON: 08/16/2021 FINDINGS: Normal size of the ventricles and extra-axial spaces for the patient''s age. Normal white matter tracts of the supratentorial brain. There is no evidence for recent intracranial ischemia or other cause of cytotoxic edema on diffusion weighted imaging (DWI). Normal T2* images of the brain without demonstrated susceptibility artifact. There is no demonstrated hemosiderin stain. Normal bilateral basal ganglia. Normal thalami. There is no extra-axial fluid accumulation. Normal flow voids within the major intracranial circulation suggesting patency by spin echo criteria. Normal venous enhancement. There is no enhancing intra-axial or extra-axial abnormality. Normal sella turcica, pituitary gland, infundibular stalk, optic chiasm and hypothalamus. Normal tectal plate and pineal gland. Normal midbrain, maurilio and medulla. Normal cerebellum. Normal basal cisterns. Normal bilateral temporal bones. Normal bilateral internal auditory canals. No demonstrated orbital abnormality, within the constraints of a routine brain study. Normal visualized paranasal sinuses. Normal calvarium and skull base. Normal visualized soft tissue structures. Normal visualized upper cervical spine. MRI/Brain W/WO Contrast IMPRESSION: Normal unenhanced and enhanced MRI of the brain. Electronically Signed: Trenton Cherry MD at 14:54 EDT Tel , Service support ,
== END ==
PROVIDERS: PCP Family Medicine; Visit Provider Nurse Practitioner Family
DX: H53.2 Diplopia (principal); G52.9 Cranial nerve disorder, unspecified; E13.39 Other specified diabetes mellitus with other diabetic ophthalmic complication; E13.65 Other specified diabetes mellitus with hyperglycemia; H49.20 Sixth [abducent] nerve palsy, unspecified eye
CPT/HCPCS: 70544; 70553; A9575

== ENCOUNTER 2021-09-12 15:31 | Outpatient (RCR) | payer MEDICAID, SELFPAY ==
[2021-08-28 00:07] VITALS: BMI 22.1
== END 2021-09-26 23:59 ==
LOC: DC 15:31
PROVIDERS: PCP Family Medicine; Visit Provider Internal Medicine Cardiovascular Disease
DX: E11.9 Type 2 diabetes mellitus without complications (principal); I10 Essential (primary) hypertension; E78.5 Hyperlipidemia, unspecified; Z68.35 Body mass index [BMI] 35.0-35.9, adult
CPT/HCPCS: 97803

== ENCOUNTER 2021-09-17 09:28 | Emergency (ER) | payer MEDICAID, SELFPAY ==
[2021-09-17 09:28] VITALS: BP 166/88; PULSE 96; RESP 12; TEMP 36.6; O2SAT 97; BMI 39.4
--- NOTE | 2021-09-17 09:40 | EDS_ITS ---
HPI History of Present Illness Chief Complaint: Chest Pain Informant: patient and parent Onset/Context/Timing Onset: Yesterday Activity at onset: sudden Timing: Continuous Quality: Positive for Aching Location: Substernal Current Severity: Mild Maximum Severity: Moderate Worsened By: Nothing Relieved By: Nothing Associated Symptoms: Positive for Nausea, Dyspnea and - (Radiation of the pain through to his back.); Negative for Vomiting, Diaphoresis, Cough, Fever, Lightheadedness, Acid Reflux and Palpitations Narrative Narrative: Patient is a middle-age male with history of coronary disease status post placement of stent mid LAD, hypertension, hyperlipidemia, diabetes and obesity who presents because of chest discomfort that started last evening at 2000. Similar to the pain he had prior to placement of stent for non-ST elevation [place]. Patient is having difficulty remembering things. Mother states he has had difficulties with past several months. He lives with his mother. 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 He states he is never smoked. He denies history of peptic ulcers, GERD or reflux. He denies intolerance to greasy or fried foods and there is no family history of cholelithiasis. Patient denies black or maroon-colored stool. Patient states he is not been compliant with his medication. He forgets his p.m. doses. He did take aspirin today. He does not check his blood sugar regularly. Prior Similar Symptoms: Yes and With Prior [place] CVD Risk Factors: Positive for Hypertension, Diabetes and Hypercholesterolemia PE Risk Factors: Negative for Recent Travel/Surgery, Recent Immobilization, Prior DVT or PE, Cancer and OCP + Smoking + >/=35 TAD Risk Factors: Positive for Hypertension; Negative for Marfan's Syndrome and Family History [facility] Medical History Anxiety Atherosclerosis of coronary artery without angina pectoris Cataract Depression Diabetes Diabetes Diabetes mellitus type II, uncontrolled Essential hypertension Gastroesophageal reflux History of anxiety History of non-ST elevation myocardial infarction (NSTEMI) (04/21/21) Kidney stones Obesity Obesity Substance abuse Home Medications fluoxetine 40 mg PO DAILY 02/13/20 [History Last Taken 04/21/21] albuterol sulfate 90 mcg/actuation aerosol inhaler 90 mcg INHALATION PRN PRN 02/16/21 [History Last Taken Unknown] aspirin 81 mg PO BREAKFAST #30 tab 06/29/21 [Rx Last Taken Unknown] nitroglycerin 0.4 mg SUBLINGUAL Q5M PRN #30 tab 04/25/21 [Rx Last Taken Unknown] atorvastatin 40 mg tablet 40 mg PO DAILY #90 tab 05/12/21 [Rx Last Taken Unknown ] isosorbide mononitrate 30 mg tablet,extended release 24 hr 30 mg PO DAILY #90 tab 05/12/21 [Rx Last Taken Unknown] lisinopril 20 mg tablet 20 mg PO DAILY #90 tab 05/12/21 [Rx Last Taken Unknown] metoprolol succinate 25 mg tablet,extended release 24 hr 25 mg PO DAILY #90 tab 05/12/21 [Rx Last Taken Unknown] omeprazole 20 mg capsule,delayed release 20 mg PO DAILY #90 cap 05/12/21 [Rx Last Taken Unknown] ticagrelor 90 mg tablet 90 mg PO BID #180 tab 05/12/21 [Rx Last Taken Unknown] pen needle, diabetic 31 gauge x 1/4 #100 ea 05/26/21 [Rx Last Taken Unknown] levothyroxine 25 mcg tablet 25 tablet PO DAILY 07/20/21 [History Last Taken Unknown] pen needle, diabetic 31 gauge x 15/64 #50 ea 07/20/21 [History Last Taken Unknown] OneTouch Verio Flex meter #1 ea NS 09/04/21 [Rx Last Taken Unknown] OneTouch Verio test strips #450 ea NS 09/04/21 [Rx Last Taken Unknown] dulaglutide 0.75 mg/0.5 mL subcutaneous pen injector 0.75 mg SUBCUT QWEEK #2 ml 09/04/21 [Rx Last Taken Unknown] FreeStyle Lite Strips #100 ea NS 09/06/21 [Rx Last Taken Unknown] insulin aspart U-100 15 unit SUBCUT TIDCM 09/17/21 [History Last Taken Unknown] insulin glargine 30 unit SUBCUT DAILY 09/17/21 [History Last Taken Unknown] Allergy/AdvReac Type Severity Reaction Status Date / Time No Known Allergies Allergy Verified 09/17/21 09:33 Surgical History History of coronary artery stent placement (04/24/21) Social History (Updated 09/17/21 @ 09:[address] Jesse Joseph MD) household members: family Smoking Status: Never smoker alcohol intake: current alcohol intake frequency: 0-2 drinks per day substance use type: marijuana what type of physical activity do you participate in: none ROS ROS ED Constitutional Constitutional ED: Denies chills, fever(s), subjective, sweats or weight loss Eyes Eyes: Reports none ENT ENT ED: Denies ear pain, rhinorrhea or sore throat Cardiovascular Cardiovascular: Reports as per HPI; Denies orthopnea or paroxysmal nocturnal dyspnea Respiratory/Chest Respiratory/Chest: Reports dyspnea; Denies cough, dyspnea on exertion, orthopnea, paroxysmal nocturnal dyspnea or sputum Gastrointestinal Gastrointestinal: Reports nausea; Denies abdominal pain, diarrhea or vomiting Genitourinary Genitourinary ED: Denies dysuria, hematuria or urinary frequency Musculoskeletal Musculoskeletal: Reports back pain; Denies arthralgias, myalgias or neck pain Integumentary Denies Abrasions or rash Neurologic Neurologic: Denies headache(s) or weakness Endocrine Endocrinology: Denies polydipsia, polyphagia or polyuria Hematologic/Lymphatic Hematologic/Lymphatic: Denies easy bleeding or easy bruising EXAM Physical Exam Const Vital Signs: 09/17/21 09:28 09/17/21 09:31 09/17/21 09:42 Temperature 97.8 F 97.8 F Temperature Source Oral Oral Pulse Rate 96 96 Respiratory Rate 12 12 Respiratory Effort Normal Non-Labored Respiratory Pattern Normal Blood Pressure 166/88 H 166/88 H Blood Pressure Mean 114 114 Pulse Ox 97 97 Oxygen Delivery Method Room Air Room Air 09/17/21 09:49 09/17/21 11:47 Temperature 98.4 F Temperature Source Temporal Pulse Rate 79 Respiratory Rate 18 Respiratory Effort Respiratory Pattern Blood Pressure 114/79 Blood Pressure Mean 90 Pulse Ox 96 97 Oxygen Delivery Method Room Air Room Air Positive well nourished, well developed and obese General Appearance ED: well developed and NAD; Negative for pallor Nutritional Appearance: obese HEENT Reports moist mucous membranes normocephalic and atraumatic Eyes PERRL and EOMs intact bilaterally General Eye ED: Negative for pale conjunctiva or scleral icterus Neck no lymphadenopathy, supple and no JVD Chest Wall inspection of chest normal and palpation of chest normal Resp normal respiratory effort and clear to auscultation bilaterally Effort and Inspection: respiratory distress Cardio regular rate, regular rhythm, S1 normal heart sound and S2 normal heart sound GI normal to inspection, nondistended, normoactive bowel sounds, soft to palpation, non-tender and non-distended; Negative for hepatosplenomegaly Back/Spine no CVA tenderness Extremity normal to inspection Extremity Narrative: There is no swelling, discoloration, asymmetry, leg vein distention, palpable cords or tenderness on the distribution deep venous system. General Extremety ED: Negative for tenderness Neuro oriented x3 and CN's II-XII intact bilaterally Sensorium / Orientation: awake and alert Motor Exam: strength 5/5 throughout Psych mental status grossly normal Skin no rashes or lesions noted and no wounds General Skin Exam: Negative for jaundice or pallor Heart Score History: Moderately Suspicious ECG: Normal (EKG is suggestive of prior inferior [place] however based on cath report patient had a anterior [place]. There is decreased anterior force. There is no ST-T wave changes noted.) Age: >45 - <65 years Risk Factors: >/= 3 Risk Factors or History of CAD Score: 4 MDM MDM MDM Narrative Medical decision making narrative: Patient with multiple risk factors presents with chest pain similar to prior [place] that has been constant for greater than 12 hours. Cardiac work-up was initiated. Differential diagnoses cardiac versus noncardiac chest pain. Lab Data Lab results narrative: Opponent was 6. Since the number was greater than three 2-hour troponin was obtained. 2-hour delta is 0. Per algorithm patient was discharged home to follow-up with his doctor. Based on the algorithm with a -2-hour troponin and value less than 700% negative predictive value not cardiac Labs: Laboratory Results - last 24 hr 09/17/21 09/17/21 09/17/21 09:33 09:33 11:38 WBC 11.2 H RBC 5.30 Hgb 16.2 Hct 47.7 MCV 90.0 MCH 30.6 MCHC 34.0 RDW Std Deviation 41.6 RDW Coeff of Elias 12.6 Plt Count 291 MPV 10.9 Immature Gran % (Auto) 0.400 Neut % (Auto) 60.4 Lymph % (Auto) 26.2 [place] % (Auto) 8.4 Eos % (Auto) 4.0 Baso % (Auto) 0.6 Absolute Neuts (auto) 6.8 Absolute Lymphs (auto) 2.94 Nucleated RBC % 0 Sodium 136 Potassium 4.0 Chloride 103 Carbon Dioxide 28.0 Anion Gap 5 BUN 13 Creatinine 0.91 Estim Creat Clear Calc 104.73 Est GFR (MDRD) Af Amer 115 Est GFR (MDRD) Non-Af 95 BUN/Creatinine Ratio 14.3 Glucose 228 H Calcium 9.3 Troponin I High Sens 6 6 Radiography Chest X-Ray - ED: 1 View and Read by ED Physician (Single view chest x-ray interpreted by me at 1004. Borderline cardiomegaly. Cardiac silhouette is normal. Mediastinum is normal. Osseous structures are normal. Lung parenchyma is unremarkable with mild/minimal chronic changes.) Diagnostic Testing: Clinical Impression(s) from Imaging Studies Chest X-Ray 09/17/21 09:46 IMPRESSION: No radiographic evidence of acute cardiopulmonary disease. at 1011 Reported and signed by: Onur Pulido MD Electronically Signed: Onur Pulido MD at 10:10 EST Tel , Service support , EKG Initial EKG: Attestation: I personally reviewed and interpreted this EKG as follows: Interpretation: Sinus Rhythm (Normal sinus rhythm with respiratory variance and ventricular rate of 75. [place] interval is 186 ms. QRS duration 102 ms. QT duration 366 ms. [place] is normal. There is decreased anterior force noted that is consistent with his prior anterior [place]. There is evidence of a left posterior fascicular bloc) Discharge Plan Triage Chief Complaint: Chest Pain ED Provider: Jesse Joseph Dx/Rx/DC Orders Clinical Impression: Chest pain, Hyperlipidemia, History of coronary artery stent placement, Essential hypertension, Diabetes Instructions: ED Chest Pain, Noncardiac Prescriptions: No Action albuterol sulfate 90 mcg/actuation HFA aerosol inhaler 90 mcg INHALATION PRN PRN (Reason: Wheezing) RF: 0 levothyroxine 25 mcg tablet 25 tablet PO DAILY RF: 0 (DME) pen needle, diabetic 31 gauge x 15/64 needle See Rx Instructions ea .ROUTE .MEDSUPPLY Qty: 50 RF: 0 atorvastatin 40 mg tablet 40 mg PO DAILY Qty: 90 RF: 3 isosorbide mononitrate 30 mg tablet extended release 24 hr 30 mg PO DAILY Qty: 90 RF: 3 lisinopril 20 mg tablet 20 mg PO DAILY Qty: 90 RF: 3 metoprolol succinate 25 mg tablet extended release 24 hr 25 mg PO DAILY Qty: 90 RF: 3 Brilinta 90 mg tablet 90 mg PO BID Qty: 180 RF: 3 omeprazole 20 mg capsule,delayed release(DR/EC) 20 mg PO DAILY Qty: 90 RF: 3 Trulicity 0.75 mg/0.5 mL pen injector 0.75 mg subcut QWEEK Qty: 2 RF: 1 (DME) 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 meter [OneTouch Verio Flex meter] Misc See Rx Instructions .ROUTE .MEDSUPPLY Qty: 1 RF: 0 (DME) OneTouch Verio test strips Strip See Rx Instructions .ROUTE .MEDSUPPLY Qty: 450 RF: 3 (DME) FreeStyle Lite Strips Strip See Rx Instructions .ROUTE .MEDSUPPLY Qty: 100 RF: 6 fluoxetine 40 MG capsule 40 mg PO DAILY RF: 0 nitroglycerin 0.4 mg Tablet, Sublingual 0.4 mg sublingual Q5M PRN (Reason: Cardiac/Chest Pain) Qty: 30 RF: 0 aspirin 81 mg Tablet,Chewable 81 mg PO BREAKFAST Qty: 30 RF: 3 insulin aspart U-100 100 unit/mL (3 mL) insulin pen 15 unit subcut TIDCM RF: 0 insulin glargine 100 unit/mL (3 mL) insulin pen 30 unit subcut DAILY RF: 0 (DME) pen needle, diabetic [ReliOn [place]] 31 gauge x 1/4 needle See Rx Instructions .ROUTE .MEDSUPPLY Qty: 100 RF: 6 Primary Care Provider: Darinel Armstrong Referrals: Darinel Armstrong MD [Primary Care Provider] - 3-5 Days Disposition Disposition: Home, Self Care
[2021-09-17 09:42] VITALS: BP 166/88; PULSE 96; RESP 12; TEMP 36.6; O2SAT 97
--- NOTE | 2021-09-17 09:46 | RAD_ITS ---
History: chest pain EXAMINATION/TECHNIQUE: XR Chest 1 View: Portable COMPARISON: None FINDINGS: LINES/DEVICES: None. LUNGS: No consolidation, edema or effusion. No pneumothorax. MEDIASTINUM AND CARDIOVASCULAR STRUCTURES: Cardiac silhouette not enlarged. Central airways and mediastinal contour are unremarkable. BONES AND SOFT TISSUES: Unremarkable. RAD/Chest 1 View (Portable) IMPRESSION: No radiographic evidence of acute cardiopulmonary disease. at 1011 Reported and signed by: Onur Pulido MD Electronically Signed: Onur Pulido MD at 10:10 EST Tel , Service support ,
--- NOTE | 2021-09-17 09:46 | EKG12_ITS ---
Test Reason : CP Blood Pressure : / mmHG Vent. Rate : 075 BPM Atrial Rate : 075 BPM P-R Int : 186 ms QRS Dur : 102 ms QT Int : 366 ms P-R-T Axes : 024 148 018 degrees QTc Int : 408 ms Normal sinus rhythm with sinus arrhythmia Left posterior fascicular block Inferior infarct , age undetermined Abnormal ECG Confirmed by TINA JUAREZ, DANIEL ([id number]), editor city OPAL GUERRERO ([id number]) on 09/18/2021 1:54:29 PM Referred By: TARAH Confirmed By:DANIEL WILDER MD
[2021-09-17 09:49] VITALS: O2SAT 96
[2021-09-17 10:09] LABS: Absolute Lymphocyte Count 2.94 X10^3/uL (0.83-4.51); Absolute Neutrophil Count 6.8 X10^3/uL (2.0-7.7); Basophil# 0.07 X10^3/uL; Basophil% 0.6 % (0-1); Eosinophil# 0.45 X10^3/uL; Hematocrit 47.7 % (40-54); Hemoglobin 16.2 g/dL (13.0-16.5); Lymphocyte # 2.94 X10^3/ul (0.83-4.51); Lymphocyte % 26.2 % (19-41); Mean Corpuscular Hgb 30.6 pg (27.0-32.0); Mean Platelet Vol. 10.9 fl (6.2-12.0); Monocyte# 0.94 X10^3/uL; Monocyte% 8.4 % (0-10); NRBC Flagged by Analyzer 0 % (0-5); Neutrophil % 60.4 % (47-70); Platelet Count 291 K/mm3 (150-450); RBC Distribution Width CV 12.6 % (11.6-14.6); RBC Distribution Width SD 41.6 fl (35.1-43.9); White Blood Count 11.2 K/mm3 (4.4-11.0)
[2021-09-17 10:11] LABS: Anion Gap 5 (5-15); BUN 13 mg/dL (7-18); BUN/Creat Ratio 14.3 RATIO (10-20); Calcium,Total 9.3 mg/dL (8.5-10.1); Chloride 103 mmol/L (98-107); Creatinine, Serum 0.91 mg/dL (0.70-1.30); EST Glomerular Filtration Rate 95 mL/min (>60); Est Glom Filt Rate - Afr Amer 115 mL/min (>60); Estimated Creatinine Clearance 104.73 ml/min; Glucose 228 mg/dL (74-106); Sodium Level 136 mmol/L (136-145); Troponin-I HS 6 pg/mL (3.0-78.0)
[2021-09-17 11:47] VITALS: BP 114/79; PULSE 79; RESP 18; TEMP 36.9; O2SAT 97
[2021-09-17 11:58] LABS: Troponin-I HS 6 pg/mL (3.0-78.0)
[2021-09-17 12:09] VITALS: BP 115/69; PULSE 63; RESP 16; O2SAT 99
== END 2021-09-17 12:12 | disposition home or self-care (01) ==
PROVIDERS: Emergency Provider Emergency Medicine; PCP Family Medicine
DX: I25.10 Atherosclerotic heart disease of native coronary artery without angina pectoris (principal); R06.00 Dyspnea, unspecified; E11.65 Type 2 diabetes mellitus with hyperglycemia; I10 Essential (primary) hypertension; E78.5 Hyperlipidemia, unspecified; K21.9 Gastro-esophageal reflux disease without esophagitis; E66.9 Obesity, unspecified; F32.A Depression, unspecified; F41.9 Anxiety disorder, unspecified; Z91.14 Patient's other noncompliance with medication regimen; Z79.4 Long term (current) use of insulin; Z79.02 Long term (current) use of antithrombotics/antiplatelets; Z79.82 Long term (current) use of aspirin; Z79.890 Hormone replacement therapy; Z79.899 Other long term (current) drug therapy; I25.2 Old myocardial infarction; Z95.5 Presence of coronary angioplasty implant and graft
CPT/HCPCS: 71045; 80048; 84484; 85025; 93005; 99285; A4216

== ENCOUNTER 2021-10-05 15:00 | Outpatient (RCR) | payer MEDICAID, SELFPAY ==
[2021-09-27 00:13] VITALS: BMI 22.1
== END 2021-10-27 23:59 ==
LOC: DC 15:00
PROVIDERS: PCP Family Medicine; Visit Provider Internal Medicine Cardiovascular Disease
DX: E11.9 Type 2 diabetes mellitus without complications (principal); I10 Essential (primary) hypertension; E78.5 Hyperlipidemia, unspecified; Z68.35 Body mass index [BMI] 35.0-35.9, adult
CPT/HCPCS: 97803; G0109

== ENCOUNTER 2021-12-20 11:32 | Emergency (ER) | payer MEDICAID, SELFPAY ==
[2021-12-20 11:33] VITALS: BP 129/76; PULSE 76; RESP 16; TEMP 36.7; O2SAT 100; BMI 38.5
[2021-12-20 11:35] VITALS: BP 129/76; PULSE 79; RESP 18; TEMP 36.7; O2SAT 99
--- NOTE | 2021-12-20 12:05 | EKG12_ITS ---
Test Reason : CHEST PAIN Blood Pressure : / mmHG Vent. Rate : 078 BPM Atrial Rate : 078 BPM P-R Int : 192 ms QRS Dur : 096 ms QT Int : 396 ms P-R-T Axes : 018 116 025 degrees QTc Int : 451 ms Normal sinus rhythm Left posterior fascicular block Poor R wave progression Abnormal ECG Confirmed by GITA JUAREZ, ROCIO ([id number]), story editor OPAL GUERRERO ([id number]) on 12/22/2021 9:53:47 AM Referred By: Confirmed By:ROCIO PELAYO MD
[2021-12-20] MEDS: Ipratropium/Albuterol Sulfate 3 ML AMPUL.NEB INHALATION (12:16)
--- NOTE | 2021-12-20 12:20 | RAD_ITS ---
STUDY: X-RAY CHEST REASON FOR EXAM: Male, 46 years old. Chest pain and cough. TECHNIQUE: Single AP portable view of the chest. COMPARISON: Comparison is made with prior study 09/17/2021. FINDINGS: EKG electrodes are seen. The lungs are clear and expanded. There is no demonstrated pleural abnormality. There is borderline cardiomegaly. Normal mediastinum and [place]. Normal visualized pulmonary arteries. Normal visualized aortic arch and descending thoracic aorta. Normal visualized thoracic spine. Normal visualized ribs, clavicles, and shoulders. There is no demonstrated abnormality of the visualized soft tissue structures of the upper abdomen. RAD/Chest 1 View (Portable) IMPRESSION: Borderline cardiomegaly. Electronically Signed: Steve Jung MD at 13:07 EST ,
[2021-12-20 12:27] LABS: Absolute Neutrophil Count 8.7 X10^3/uL (2.0-7.7); Basophil# 0.07 X10^3/uL; Basophil% 0.6 % (0-1); Eosinophil# 0.09 X10^3/uL; Eosinophils% 0.8 % (0-5); Hematocrit 45.8 % (40-54); Hemoglobin 15.8 g/dL (13.0-16.5); Mean Corp Hgb Conc 34.5 g/dL (32-36); Mean Corpuscular Hgb 31.4 pg (27.0-32.0); Mean Corpuscular Volume 91.1 fL (80-94); Mean Platelet Vol. 11.1 fl (6.2-12.0); Monocyte% 13.3 % (0-10); NRBC Flagged by Analyzer 0 % (0-5); Neutrophil # 8.67 X10^3/uL (2.7-7.7); Neutrophil % 76.9 % (47-70); Platelet Count 262 K/mm3 (150-450); RBC Distribution Width CV 13.3 % (11.6-14.6); RBC Distribution Width SD 44.3 fl (35.1-43.9); Red Blood Count 5.03 M/mm3 (4.6-6.2); White Blood Count 11.3 K/mm3 (4.4-11.0)
[2021-12-20 12:39] VITALS: PULSE 81; RESP 16
[2021-12-20 12:43] LABS: ALB/GLOB Ratio 0.9 RATIO (0.9-2.4); AST(SGOT) 18 U/L (15-37); Alanine Aminotransfer ALT/SGPT 45 U/L (16-61); Albumin, Serum 3.8 g/dL (3.2-5.0); Alkaline Phosphatase 131 U/L (45-117); Anion Gap 5 (5-15); BUN 12 mg/dL (7-18); BUN/Creat Ratio 12.3 RATIO (10-20); Calcium,Total 9.4 mg/dL (8.5-10.1); Chloride 105 mmol/L (98-107); Creatinine, Serum 0.98 mg/dL (0.70-1.30); EST Glomerular Filtration Rate 88 mL/min (>60); Est Glom Filt Rate - Afr Amer 106 mL/min (>60); Estimated Creatinine Clearance 100.31 ml/min; Globulin 4.2 g/dL (2.2-4.2); Glucose 162 mg/dL (74-106); Potassium 3.8 mmol/L (3.5-5.1); Sodium Level 137 mmol/L (136-145); Troponin-I HS 6 pg/mL (3.0-78.0)
[2021-12-20 12:45] LABS: D-Dimer Quantitative (DVT/PE) 0.31 FEU/ug/m (0.27-0.49)
--- NOTE | 2021-12-20 12:45 | EDS_ITS ---
HPI History of Present Illness Chief Complaint: Chest Pain Informant: patient Narrative Narrative: 46-year-old male presenting to the emergency department with chest tightness. Patient states that he has not been feeling very well. He notes chest tightness and cough. He notes nasal congestion. He notes generalized myalgias. He denies fever. He notes that he generally will get bronchitis around this time of year. He is a diabetic with a history of an NSTEMI. [facility] Medical History Anxiety Atherosclerosis of coronary artery without angina pectoris Cataract Depression Diabetes Diabetes Diabetes mellitus type II, uncontrolled Essential hypertension Gastroesophageal reflux History of anxiety History of non-ST elevation myocardial infarction (NSTEMI) (04/21/21) Kidney stones Obesity Obesity Substance abuse Home Medications fluoxetine 40 mg PO DAILY 02/13/20 [History Last Taken 04/21/21] albuterol sulfate 90 mcg/actuation aerosol inhaler 90 mcg INHALATION PRN PRN 02/16/21 [History Last Taken Unknown] aspirin 81 mg PO BREAKFAST #30 tab 04/25/21 [Rx Last Taken Unknown] nitroglycerin 0.4 mg SUBLINGUAL Q5M PRN #30 tab 04/25/21 [Rx Last Taken Unknown] atorvastatin 40 mg tablet 40 mg PO DAILY #90 tab 05/12/21 [Rx Last Taken Unknown] isosorbide mononitrate 30 mg tablet,extended release 24 hr 30 mg PO DAILY #90 tab 05/12/21 [Rx Last Taken Unknown] lisinopril 20 mg tablet 20 mg PO DAILY #90 tab 05/12/21 [Rx Last Taken Unknown] metoprolol succinate 25 mg tablet,extended release 24 hr 25 mg PO DAILY #90 tab 05/12/21 [Rx Last Taken Unknown] omeprazole 20 mg capsule,delayed release 20 mg PO DAILY #90 cap 05/12/21 [Rx Last Taken Unknown] ticagrelor 90 mg tablet 90 mg PO BID #180 tab 05/12/21 [Rx Last Taken Unknown] pen needle, diabetic 31 gauge x 1/4 #100 ea 05/26/21 [Rx Last Taken Unknown] levothyroxine 25 mcg tablet 25 tablet PO DAILY 07/20/21 [History Last Taken Unknown] pen needle, diabetic 31 gauge x 15/64 #50 ea 07/20/21 [History Last Taken Unknown] OneTouch Verio Flex meter #1 ea NS 09/04/21 [Rx Last Taken Unknown] OneTouch Verio test strips #450 ea NS 09/04/21 [Rx Last Taken Unknown] FreeStyle Lite Strips #100 ea NS 09/06/21 [Rx Last Taken Unknown] insulin glargine 30 unit SUBCUT DAILY 09/17/21 [History Last Taken Unknown] dulaglutide 0.75 mg/0.5 mL subcutaneous pen injector 0.75 mg SUBCUT QWEEK #2 ml 12/04/21 [Rx Last Taken Unknown] albuterol sulfate [Ventolin HFA] 2 puff INHALATION Q4H PRN PRN #1 inhaler 12/20/21 [Rx Last Taken Unknown] insulin aspart U-100 12 unit SUBCUT TIDCM 12/20/21 [History Last Taken Unknown] oseltamivir [Tamiflu] 75 mg PO BID 5 Days #10 cap 12/20/21 [Rx Last Taken Unknown] prednisone 60 mg PO DAILY #15 tablet 12/20/21 [Rx Last Taken Unknown] Allergy/AdvReac Type Severity Reaction Status Date / Time No Known Allergies Allergy Verified 12/20/21 11:37 Surgical History History of coronary artery stent placement (04/24/21) Social History household members: family Smoking Status: Never smoker alcohol intake: current alcohol intake frequency: 0-2 drinks per day substance use type: marijuana what type of physical activity do you participate in: none ROS ROS ED Constitutional Constitutional ED: Denies chills, fever(s) or weight loss Eyes Eyes: Denies change in vision or diplopia ENT ENT ED: Reports rhinorrhea; Denies ear pain or sore throat Cardiovascular Cardiovascular: Reports chest pain; Denies orthopnea, palpitations or racing heartbeat Respiratory/Chest Respiratory/Chest: Reports cough, dyspnea and sputum; Denies orthopnea Gastrointestinal Gastrointestinal: Denies abdominal pain, diarrhea, nausea or vomiting Genitourinary Genitourinary ED: Denies dysuria, hematuria or urinary frequency Musculoskeletal Musculoskeletal: Reports myalgias; Denies arthralgias Integumentary Denies abscess or rash Neurologic Neurologic: Denies headache(s) or weakness Psychiatric Psychiatric: Denies anxiety, depression, suicidal ideation or suicidal thoughts Endocrine Endocrinology: Denies polydipsia, polyphagia or polyuria Allergic/Immunologic Allergic/Immunologic ED: Denies mouth swelling, tongue swelling or urticaria EXAM Physical Exam Const Vital Signs: 12/20/21 11:33 12/20/21 11:35 12/20/21 12:19 Temperature 98.0 F 98.0 F Temperature Source Oral Oral Pulse Rate 76 79 Respiratory Rate 16 18 Respiratory Effort Normal Non-Labored Respiratory Pattern Blood Pressure 129/76 H 129/76 H Blood Pressure Mean 93 93 Pulse Ox 100 99 Oxygen Delivery Method Room Air Room Air 12/20/21 12:39 12/20/21 13:13 Temperature Temperature Source Pulse Rate 81 83 Respiratory Rate 16 14 Respiratory Effort Respiratory Pattern Normal Blood Pressure Blood Pressure Mean Pulse Ox 98 Oxygen Delivery Method Room Air Positive well nourished, well developed and obese General Appearance ED: well developed Nutritional Appearance: obese HEENT Reports normocephalic, head/scalp atraumatic, TM's clear and moist mucous membranes HEENT Narrative: Turbinate edema Negative for trauma Tympanic Membrane ED: Yes TM's clear Eyes PERRL and EOMs intact bilaterally Neck no lymphadenopathy, supple and no JVD Resp Auscultation: wheezes expiratory wheezes and diminished lung sounds Cardio regular rate, regular rhythm and no murmurs GI normal to inspection, nondistended, normoactive bowel sounds and non-tender Palpation: soft Back/Spine no CVA tenderness and normal ROM Extremity normal to inspection General Extremety ED: Negative for edema General Extremity: Negative for edema Neuro oriented x3 and CN's II-XII intact bilaterally Sensorium / Orientation: alert Motor Exam: strength 5/5 throughout Psych mental status grossly normal Mood & Affect: Negative for depressed or tearful Skin no rashes or lesions noted and no wounds MDM MDM MDM Narrative Medical decision making narrative: White count nonspecifically elevated 11.3. D- dimer 0.31. Troponin is 6. My interpretation of the chest x-ray is no acute process borderline cardiomegaly. Patient received a DuoNeb and feels some mild improvement. Interesting is that his Covid test is negative but his influenza is positive for influenza A. I will write for prednisone Tamiflu and albuterol MDI. Lab Data Attestation: I reviewed the patient's lab results. Labs: Laboratory Results - last 24 hr 12/20/21 12/20/21 12/20/21 11:35 11:35 11:35 WBC 11.3 H RBC 5.03 Hgb 15.8 Hct 45.8 MCV 91.1 MCH 31.4 MCHC 34.5 RDW Std Deviation 44.3 H RDW Coeff of Elias 13.3 Plt Count 262 MPV 11.1 Immature Gran % (Auto) 0.400 Neut % (Auto) 76.9 H Lymph % (Auto) 8.0 L [place] % (Auto) 13.3 H Eos % (Auto) 0.8 Baso % (Auto) 0.6 Absolute Neuts (auto) 8.7 H Absolute Lymphs (auto) 0.90 Nucleated RBC % 0 D-Dimer Quant (PE/DVT) 0.31 Sodium 137 Potassium 3.8 Chloride 105 Carbon Dioxide 27.0 Anion Gap 5 BUN 12 Creatinine 0.98 Estim Creat Clear Calc 100.31 Est GFR (MDRD) Af Amer 106 Est GFR (MDRD) Non-Af 88 BUN/Creatinine Ratio 12.3 Glucose 162 H Calcium 9.4 Total Bilirubin 0.80 AST 18 ALT 45 Alkaline Phosphatase 131 H Troponin I High Sens 6 Total Protein 8.0 Albumin 3.8 Globulin 4.2 Albumin/Globulin Ratio 0.9 Radiography Diagnostic Testing: Clinical Impression(s) from Imaging Studies Chest X-Ray 12/20/21 12:20 IMPRESSION: Borderline cardiomegaly. Electronically Signed: Steve Jung MD at 13:07 EST Reading Location ID and State: [facility] / [place] , Service support , Discharge Plan Triage Chief Complaint: Chest Pain ED Provider: Morgan Patterson Dx/Rx/DC Orders Clinical Impression: Chest pain, Influenza A Instructions: ED Influenza (Adult) Prescriptions: New albuterol sulfate [Ventolin HFA] 1 INHALER inhaler 2 puff inhalation Q4H PRN PRN (Reason: Wheezing) Qty: 1 RF: 0 prednisone 20 MG tablet 60 mg PO DAILY Qty: 15 RF: 0 oseltamivir [Tamiflu] 75 mg capsule 75 mg PO BID 5 Days Qty: 10 RF: 0 No Action albuterol sulfate 90 mcg/actuation HFA aerosol inhaler 90 mcg INHALATION PRN PRN (Reason: Wheezing) RF: 0 levothyroxine 25 mcg tablet 25 tablet PO DAILY RF: 0 (DME) pen needle, diabetic 31 gauge x 15/64 needle See Rx Instructions ea .ROUTE .MEDSUPPLY Qty: 50 RF: 0 atorvastatin 40 mg tablet 40 mg PO DAILY Qty: 90 RF: 3 isosorbide mononitrate 30 mg tablet extended release 24 hr 30 mg PO DAILY Qty: 90 RF: 3 lisinopril 20 mg tablet 20 mg PO DAILY Qty: 90 RF: 3 metoprolol succinate 25 mg tablet extended release 24 hr 25 mg PO DAILY Qty: 90 RF: 3 Brilinta 90 mg tablet 90 mg PO BID Qty: 180 RF: 3 omeprazole 20 mg capsule,delayed release(DR/EC) 20 mg PO DAILY Qty: 90 RF: 3 (DME) 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 meter [OneTouch Verio Flex meter] Misc See Rx Instructions .ROUTE .MEDSUPPLY Qty: 1 RF: 0 (DME) OneTouch Verio test strips Strip See Rx Instructions .ROUTE .MEDSUPPLY Qty: 450 RF: 3 (DME) FreeStyle Lite Strips Strip See Rx Instructions .ROUTE .MEDSUPPLY Qty: 100 RF: 6 fluoxetine 40 MG capsule 40 mg PO DAILY RF: 0 nitroglycerin 0.4 mg Tablet, Sublingual 0.4 mg sublingual Q5M PRN (Reason: Cardiac/Chest Pain) Qty: 30 RF: 0 aspirin 81 mg Tablet,Chewable 81 mg PO BREAKFAST Qty: 30 RF: 3 insulin glargine 100 unit/mL (3 mL) insulin pen 30 unit subcut DAILY RF: 0 insulin aspart U-100 100 unit/mL (3 mL) insulin pen 12 unit subcut TIDCM RF: 0 (DME) pen needle, diabetic [ReliOn [place]] 31 gauge x 1/4 needle See Rx Instructions .ROUTE .MEDSUPPLY Qty: 100 RF: 6 Trulicity 0.75 mg/0.5 mL pen injector 0.75 mg subcut QWEEK Qty: 2 RF: 0 Primary Care Provider: Darinel Armstrong Referrals: Darinel Armstrong MD [Primary Care Provider] - 1 Week if not improving Disposition Disposition: Home, Self Care
[2021-12-20 13:13] VITALS: PULSE 83; RESP 14; O2SAT 98
[2021-12-20 13:49] VITALS: BP 132/81; PULSE 86; RESP 20; O2SAT 98
== END 2021-12-20 13:50 | disposition home or self-care (01) ==
PROVIDERS: Emergency Provider Emergency Medicine; PCP Family Medicine; Visit Provider Emergency Medicine
DX: J10.1 Influenza due to other identified influenza virus with other respiratory manifestations (principal); E11.65 Type 2 diabetes mellitus with hyperglycemia; R07.9 Chest pain, unspecified; I25.10 Atherosclerotic heart disease of native coronary artery without angina pectoris; Z20.822 Contact with and (suspected) exposure to COVID-19; I10 Essential (primary) hypertension; K21.9 Gastro-esophageal reflux disease without esophagitis; E66.9 Obesity, unspecified; Z79.82 Long term (current) use of aspirin; I25.2 Old myocardial infarction; Z95.5 Presence of coronary angioplasty implant and graft
CPT/HCPCS: 71045; 80053; 84484; 85025; 85379; 87426; 87804; 93005; 94640; 99284; A4216

== ENCOUNTER 2022-08-28 08:22 | Inpatient (IN) | payer MEDICAID, SELFPAY ==
[2022-08-28] VITALS (15 sets, daily range): BP systolic 117–191; BP diastolic 76–110; PULSE 41–68; RESP 12–21; TEMP 36.3–36.8; O2SAT 96–100; BMI 35.2; BMI 37.4
--- NOTE | 2022-08-28 08:33 | ED.RN ---
Pt diaphoretic, vomiting, c/o chest pain, achy arms & pain radiating to his back. Dr Valentina romero.
--- NOTE | 2022-08-28 08:38 | RAD_ITS ---
STUDY: X-RAY CHEST REASON FOR EXAM: Male, 47 years old. Chest pain TECHNIQUE: Single AP portable view of the chest. COMPARISON: Comparison is made with prior study dated 12/20/2021. FINDINGS: EKG electrodes are seen. The lungs are clear and expanded. There is no demonstrated pleural abnormality. There is mild cardiac enlargement. Normal mediastinum and leland. Normal visualized pulmonary arteries. Normal visualized aortic arch and descending thoracic aorta. Normal visualized thoracic spine. Normal visualized ribs, clavicles, and shoulders. There is no demonstrated abnormality of the visualized soft tissue structures of the upper abdomen. RAD/Chest 1 View (Portable) IMPRESSION: Mild cardiomegaly. Electronically Signed: Steve Jung MD at 9:12 EDT ,
--- NOTE | 2022-08-28 08:41 | ED.VIS.CHEST ---
HPI History of Present Illness Chief Complaint: Chest Pain Informant: patient Onset/Context/Timing Onset: Yesterday Narrative Narrative: Patient presents with squeezing chest pain that started yesterday. He states it was initially intermittent but has been constant over the past hour or so. He does feel short of breath. He has a history of coronary artery disease and had an NSTEMI in March 2021. He has a stent to the mid circumflex and to the LAD. He has been compliant with his Brilinta. He admits that he has been out of aspirin recently and has not had it. [facility] Medical History Anxiety Atherosclerosis of coronary artery without angina pectoris Cataract Depression Diabetes Diabetes mellitus type II, uncontrolled Essential hypertension Gastroesophageal reflux History of anxiety History of non-ST elevation myocardial infarction (NSTEMI) (04/21/21) Kidney stones Obesity Obesity Substance abuse Home Medications fluoxetine 40 mg capsule 40 mg PO DAILY 02/13/20 [History Last Taken 04/21/21] albuterol sulfate 90 mcg/actuation aerosol inhaler 90 mcg inhalation PRN PRN Wheezing 02/16/21 [History Last Taken Unknown] aspirin 81 mg chewable tablet 81 mg PO BREAKFAST #30 tabs 04/25/21 [Rx Last Taken Unknown] nitroglycerin 0.4 mg sublingual tablet 0.4 mg sublingual Q5M PRN Cardiac/Chest Pain #30 tabs 04/25/21 [Rx Last Taken Unknown] omeprazole 20 mg capsule,delayed release 20 mg PO DAILY #90 caps 05/12/21 [Rx Last Taken Unknown] levothyroxine 25 mcg tablet 25 tablet PO DAILY 07/20/21 [History Last Taken Unknown] pen needle, diabetic 31 gauge x 15/64 #50 ea 07/20/21 [History Last Taken Unknown] OneTouch Verio Flex meter (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 meter) #1 ea 09/04/21 [Rx Last Taken Unknown] OneTouch Verio test strips (blood sugar diagnostic) #450 ea 09/04/21 [Rx Last Taken Unknown] FreeStyle Lite Strips (blood sugar diagnostic) #100 ea 09/06/21 [Rx Last Taken Unknown] albuterol sulfate 90 mcg/actuation aerosol inhaler (Ventolin HFA) 2 puff inhalation Q4H PRN PRN Wheezing ##1 12/20/21 [Rx Last Taken Unknown] pen needle, diabetic 31 gauge x 1/4 #120 ea 01/15/22 [Rx Last Taken Unknown] atorvastatin 40 mg tablet 40 mg PO DAILY #90 tabs 05/24/22 [Rx Last Taken Unknown] isosorbide mononitrate 30 mg tablet,extended release 24 hr 30 mg PO DAILY #90 tabs 05/24/22 [Rx Last Taken Unknown] lisinopril 20 mg tablet 20 mg PO DAILY #90 tabs 05/24/22 [Rx Last Taken Unknown] metoprolol succinate 25 mg tablet,extended release 24 hr 25 mg PO DAILY #90 tabs 05/24/22 [Rx Last Taken Unknown] ticagrelor 90 mg tablet (Brilinta) 90 mg PO BID #180 tabs 05/24/22 [Rx Last Taken Unknown] dulaglutide 0.75 mg/0.5 mL subcutaneous pen injector (Trulicity) 0.75 mg (0.5 mL) subcut QWEEK #2 mL 07/16/22 [Rx Last Taken Unknown] flash glucose sensor (FreeStyle Ximena 2 Sensor kit) #6 ea 07/16/22 [Rx Last Taken Unknown] insulin aspart U-100 100 unit/mL (3 mL) subcutaneous pen 20 unit (0.2 mL) subcut TIDCM #54 mL 07/16/22 [Rx Last Taken Unknown] insulin glargine 100 unit/mL (3 mL) subcutaneous pen 30 unit (0.3 mL) subcut DAILY #27 mL 07/16/22 [Rx Last Taken Unknown] Allergy/AdvReac Type Severity Reaction Status Date / Time No Known Allergies Allergy Verified 08/28/22 08:24 Surgical History History of coronary artery stent placement (04/24/21) Social History household members: family Smoking Status: Never smoker alcohol intake: current alcohol intake frequency: 0-2 drinks per day substance use type: marijuana what type of physical activity do you participate in: none ROS ROS ED Constitutional Constitutional ED: Denies chills or fever(s) Eyes Eyes: Denies change in vision or discharge from eye(s) ENT ENT ED: Denies discharge from eye(s), rhinorrhea or sore throat Cardiovascular Cardiovascular: Reports chest pain; Denies palpitations Respiratory/Chest Respiratory/Chest: Reports dyspnea; Denies cough Gastrointestinal Gastrointestinal: Reports nausea and vomiting; Denies abdominal pain or diarrhea Genitourinary Genitourinary ED: Denies dysuria Musculoskeletal Musculoskeletal: Denies back pain or extremity pain Integumentary Denies Abrasions or rash Neurologic Neurologic: Denies headache(s) or weakness Psychiatric Psychiatric: Denies anxiety or depression Allergic/Immunologic Allergic/Immunologic ED: Denies lip swelling or urticaria EXAM Physical Exam Const Vital Signs: 08/28/22 08:24 08/28/22 08:28 08/28/22 08:50 Temperature 97.7 F L Temperature Source Oral Pulse Rate 46 L Respiratory Rate 21 H Respiratory Effort Normal Non-Labored Blood Pressure 188/98 H Blood Pressure Mean 128 Pulse Ox 100 Oxygen Delivery Method Room Air Nasal Cannula Oxygen Flow Rate (L/min) 2 08/28/22 08:30 08/28/22 08:51 08/28/22 09:00 Temperature Temperature Source Pulse Rate 59 L 54 L 48 L Respiratory Rate 20 H 18 Respiratory Effort Blood Pressure 191/110 H 167/99 H 166/89 H Blood Pressure Mean 137 121 114 Pulse Ox 100 100 Oxygen Delivery Method Room Air Room Air Oxygen Flow Rate (L/min) 08/28/22 09:15 Temperature Temperature Source Pulse Rate 41 L Respiratory Rate 13 Respiratory Effort Blood Pressure 147/80 H Blood Pressure Mean 102 Pulse Ox 96 Oxygen Delivery Method Room Air Oxygen Flow Rate (L/min) Positive well nourished and well developed General Appearance ED: well developed HEENT Reports normocephalic and head/scalp atraumatic Eyes PERRL and EOMs intact bilaterally Neck supple Chest Wall inspection of chest normal and palpation of chest normal Resp normal respiratory effort Resp Narrative: Mild bilateral expiratory wheezes. Cardio regular rhythm GI non-tender Palpation: soft Extremity normal to inspection Neuro oriented x3 and no sensory deficits noted Sensorium / Orientation: alert Motor Exam: strength 5/5 throughout Psych mental status grossly normal Skin Skin Narrative: Diaphoresis Heart Score History: Highly Suspicious ECG: Nonspecific Repolarization Age: >45 - <65 years Risk Factors: >/= 3 Risk Factors or History of CAD Troponin: >1 - <3 Normal Limit Score: 7 MDM MDM MDM Narrative Medical decision making narrative: Patient received aspirin on arrival along with morphine and Zofran. EKG, chest x-ray, lab work obtained. Lab Data Attestation: I reviewed the patient's lab results. Labs: Laboratory Results - last 24 hr 08/28/22 08/28/22 08/28/22 08:30 08:30 08:30 WBC 15.3 H RBC 5.20 Hgb 16.0 Hct 46.0 MCV 88.5 MCH 30.8 MCHC 34.8 RDW Std Deviation 43.2 RDW Coeff of Elias 13.3 Plt Count 309 MPV 11.0 Immature Gran % (Auto) 0.300 Neut % (Auto) 54.3 Lymph % (Auto) 28.2 Cascade % (Auto) 8.2 Eos % (Auto) 8.5 H Baso % (Auto) 0.5 Absolute Neuts (auto) 8.3 H Absolute Lymphs (auto) 4.32 Nucleated RBC % 0 D-Dimer Quant (PE/DVT) 0.28 Sodium 140 Potassium 4.0 Chloride 106 Carbon Dioxide 24.0 Anion Gap 10 BUN 9 Creatinine 0.97 Estim Creat Clear Calc 103.33 Est GFR (MDRD) Af Amer 107 Est GFR (MDRD) Non-Af 89 BUN/Creatinine Ratio 9.3 L Glucose 163 H Calcium 9.7 Troponin I High Sens 159 H* Radiography Chest X-Ray - ED: 1 View, Read by ED Physician and Chronic Changes Diagnostic Testing: Clinical Impression(s) from Imaging Studies Chest X-Ray 08/28/22 08:38 IMPRESSION: Mild cardiomegaly. Electronically Signed: Steve Jung MD at 9:12 EDT , EKG Initial EKG: Attestation: I personally reviewed and interpreted this EKG as follows: Interpretation: Sinus Bradycardia (Sinus bradycardia at [address] elevation in lead III only. No significant changes noted in 2 or aVF.) Follow-up EKG: Attestation: I personally reviewed and interpreted this EKG as follows: Interpretation: Sinus Bradycardia (Sinus bradycardia [address] change noted.) Treatment and Re-Evaluation Narrative: Repeat evaluation patient resting comfortably. He denies any chest pain at this time. CBC reveals mild elevation of white count to 15.3. No left shift. D-dimer is normal. Chemistry studies unremarkable and troponin is elevated at 159. I spoke Dr. Adams through staff in the [employer]. We will start a heparin drip and patient will be admitted. I did discuss with the patient I anticipate he will need further testing with probable cardiac cath. Discharge Plan Triage Chief Complaint: Chest Pain ED Provider: Xuan Montgomery Dx/Rx/DC Orders Clinical Impression: Non-ST elevation AL (NSTEMI), ACS (acute coronary syndrome), Bradycardia Prescriptions: No Action albuterol sulfate 90 mcg/actuation HFA aerosol inhaler 90 mcg INHALATION PRN PRN (Reason: Wheezing) Label Comments: INHALE 2 PUFFS BY MOUTH EVERY 4 HOURS NEEDED levothyroxine 25 mcg tablet 25 tablet PO DAILY (DME) pen needle, diabetic 31 gauge x 15/64 needle See Rx Instructions .ROUTE .MEDSUPPLY Qty: 50 Rx Instructions: As directed omeprazole 20 mg capsule,delayed release(DR/EC) 20 mg PO DAILY Qty: 90 3RF (DME) 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 meter [OneTouch Verio Flex meter] [facility] [place] See Rx Instructions .ROUTE .MEDSUPPLY Qty: 1 0RF Rx Instructions: As directed (DME) OneTouch Verio test strips Strip See Rx Instructions .ROUTE .MEDSUPPLY Qty: 450 3RF Rx Instructions: 5x/day (DME) FreeStyle Lite Strips Strip See Rx Instructions .ROUTE .MEDSUPPLY Qty: 100 6RF Rx Instructions: 4x/day Trulicity 0.75 mg/0.5 mL pen injector 0.75 mg subcut QWEEK Qty: 2 5RF insulin aspart U-100 100 unit/mL (3 mL) insulin pen 20 unit subcut TIDCM Qty: 54 1RF insulin glargine 100 unit/mL (3 mL) insulin pen 30 unit subcut DAILY Qty: 27 1RF (DME) FreeStyle Ximena 2 Sensor Kit See Rx Instructions .Route Qty: 6 1RF Rx Instructions: 1 sensor q 14 days fluoxetine 40 MG capsule 40 mg PO DAILY nitroglycerin 0.4 mg Tablet, Sublingual 0.4 mg sublingual Q5M PRN (Reason: Cardiac/Chest Pain) Qty: 30 0RF aspirin 81 mg Tablet,Chewable 81 mg PO BREAKFAST Qty: 30 3RF albuterol sulfate [Ventolin HFA] 1 INHALER inhaler 2 puff inhalation Q4H PRN PRN (Reason: Wheezing) Qty: 1 0RF Rx Instructions: dispense with spacer please (DME) pen needle, diabetic 31 gauge x 1/4 needle See Rx Instructions .ROUTE .MEDSUPPLY Qty: 120 6RF Rx Instructions: 4x/day atorvastatin 40 mg tablet 40 mg PO DAILY Qty: 90 3RF isosorbide mononitrate 30 mg tablet extended release 24 hr 30 mg PO DAILY Qty: 90 3RF Rx Instructions: Hold for SBP less than 110 mmHg lisinopril 20 mg tablet 20 mg PO DAILY Qty: 90 3RF metoprolol succinate 25 mg tablet extended release 24 hr 25 mg PO DAILY Qty: 90 3RF Brilinta 90 mg tablet 90 mg PO BID Qty: 180 3RF Primary Care Provider: Darinel Armstrong Referrals: Darinel Armstrong MD [Primary Care Provider] - Disposition Disposition: Acute Care Hospital [facility]
[2022-08-28] MEDS: Morphine 4 MG/ML Syringe IV (08:44)
[2022-08-28] MEDS: Aspirin 81 MG TAB.CHEW 324 MG PO (08:44)
[2022-08-28] MEDS: Ondansetron 4 MG/2 ML Vial IV (08:44)
[2022-08-28 08:50] LABS: Absolute Lymphocyte Count 4.32 X10^3/uL (0.83-4.51); Absolute Neutrophil Count 8.3 X10^3/uL (2.0-7.7); Basophil# 0.07 X10^3/uL; Basophil% 0.5 % (0-1); Eosinophil# 1.31 X10^3/uL; Eosinophils% 8.5 % (0-5); Lymphocyte # 4.32 X10^3/ul (0.83-4.51); Lymphocyte % 28.2 % (19-41); Mean Corp Hgb Conc 34.8 g/dL (32-36); Mean Corpuscular Hgb 30.8 pg (27.0-32.0); Mean Corpuscular Volume 88.5 fL (80-94); Monocyte# 1.25 X10^3/uL; Monocyte% 8.2 % (0-10); NRBC Flagged by Analyzer 0 % (0-5); Neutrophil # 8.34 X10^3/uL (2.7-7.7); Neutrophil % 54.3 % (47-70); Platelet Count 309 K/mm3 (150-450); RBC Distribution Width CV 13.3 % (11.6-14.6); RBC Distribution Width SD 43.2 fl (35.1-43.9); White Blood Count 15.3 K/mm3 (4.4-11.0)
[2022-08-28] MEDS: 0.9% Normal Saline 1,000 ML 150 ML IV (08:52)
[2022-08-28 08:57] LABS: D-Dimer Quantitative (DVT/PE) 0.28 FEU/ug/m (0.27-0.49)
[2022-08-28 09:24] LABS: Anion Gap 10 (5-15); BUN 9 mg/dL (7-18); BUN/Creat Ratio 9.3 RATIO (10-20); Calcium,Total 9.7 mg/dL (8.5-10.1); Chloride 106 mmol/L (98-107); Creatinine, Serum 0.97 mg/dL (0.70-1.30); EST Glomerular Filtration Rate 89 mL/min (>60); Est Glom Filt Rate - Afr Amer 107 mL/min (>60); Estimated Creatinine Clearance 103.33 ml/min; Glucose 163 mg/dL (74-106); Sodium Level 140 mmol/L (136-145); Troponin-I HS (w/2H Reflex) 159 pg/mL (3.0-78.0)
--- NOTE | 2022-08-28 09:47 | NURSING ---
DR CANTRELL FOR DR GOLDEN
[2022-08-28 09:52] LABS: Partial Thromboplast Time 30.7 Seconds (24.1-36.2)
--- NOTE | 2022-08-28 09:52 | NURSING ---
MELLISA CANTRELL NSTEMI, ACS
--- NOTE | 2022-08-28 09:55 | HP.PCM.HOS_ITS ---
HPI - General General Date of Admission: 08/28/22 Date of Service: 08/28/22 Chief Complaint: Chest pain since yesterday intermittent. HPI Narrative MICHAEL NAVA, is a 47 M with history of coronary artery status post PCI in March 2021 came to ER with chest pain that started yesterday. Patient had chest pain midsternal with radiation to left arm although he did not feel short of breath yesterday. Its not precipitated by exertion as he gets chest pain yesterday when at rest. Denies shortness of breath, nausea vomiting, diaphoresis or dizziness. Today, chest pressure/tightness woke him up from sleep in the morning. It felt like squeezing sensation all around like a belt that persisted long for more than an hour therefore came to ED. During previous admission in March 2021 patient had PCI of LAD and mid circumflex and he states compliant with his medications In ED, patient is in sinus rhythm, heart rate in 40s to 50s, blood pressure normal. No hypoxia or tachypnea. Twelve-lead EKG individually reviewed, shows sinus bradycardia 49 bpm. Second EKG reviewed, sinus bradycardia [address]-T changes. Currently patient is chest pain-free. Troponin is elevated Family history: Patient father and grandfather has history of coronary artery disease. [facility] Medical History Anxiety Atherosclerosis of coronary artery without angina pectoris Cataract Depression Diabetes Diabetes mellitus type II, uncontrolled Essential hypertension Gastroesophageal reflux History of anxiety History of non-ST elevation myocardial infarction (NSTEMI) (04/21/21) Kidney stones Obesity Obesity Substance abuse Home Medications albuterol sulfate 90 mcg/actuation aerosol inhaler 90 mcg inhalation PRN PRN Wheezing 02/16/21 [History Last Taken Unknown] nitroglycerin 0.4 mg sublingual tablet 0.4 mg sublingual Q5M PRN Cardiac/Chest Pain #30 tabs 04/25/21 [Rx Last Taken Unknown] levothyroxine 25 mcg tablet 25 tablet PO DAILY THYROID 07/20/21 [History Last Taken 2 Days Ago ~08/26/22] pen needle, diabetic 31 gauge x 15/64 #50 ea 07/20/21 [History Last Taken Unknown] OneTouch Verio Flex meter (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 meter) #1 ea 09/04/21 [Rx Last Taken Unknown] OneTouch Verio test strips (blood sugar diagnostic) #450 ea 09/04/21 [Rx Last Taken Unknown] FreeStyle Lite Strips (blood sugar diagnostic) #100 ea 09/06/21 [Rx Last Taken Unknown] albuterol sulfate 90 mcg/actuation aerosol inhaler (Ventolin HFA) 2 puff inhalation Q4H PRN PRN Wheezing ##1 12/20/21 [Rx Last Taken Unknown] pen needle, diabetic 31 gauge x 1/4 #120 ea 01/15/22 [Rx Last Taken Unknown] flash glucose sensor (FreeStyle Ximena 2 Sensor kit) #6 ea 07/16/22 [Rx Last Taken Unknown] aspirin 81 mg chewable tablet 81 mg PO BREAKFAST HEART HEALTH 08/28/22 [History Last Taken 08/28/22] atorvastatin 40 mg tablet 40 mg PO DAILY CHOLESTEROL 08/28/22 [History Last Taken 08/28/22] dulaglutide 0.75 mg/0.5 mL subcutaneous pen injector (Trulicity) 0.75 mg subcut TU DIABETES 08/28/22 [History Last Taken 08/21/22] insulin aspart U-100 100 unit/mL (3 mL) subcutaneous pen 15 unit subcut TIDCM DIABETES 08/28/22 [History Last Taken 08/27/22] insulin glargine 100 unit/mL (3 mL) subcutaneous pen 26 unit subcut DAILY CARROLL BETES 08/28/22 [History Last Taken 08/27/22] isosorbide mononitrate 30 mg tablet,extended release 24 hr 30 mg PO DAILY ANGINA 08/28/22 [History Last Taken 08/28/22] lisinopril 20 mg tablet 20 mg PO DAILY BLOOD PRESSURE 08/28/22 [History Last Taken 08/28/22] metoprolol succinate 25 mg tablet,extended release 24 hr 25 mg PO DAILY BLOOD PRESSURE 08/28/22 [History Last Taken 08/28/22] omeprazole 20 mg capsule,delayed release 20 mg PO DAILY GERD 08/28/22 [History Last Taken 2 Days Ago ~08/26/22] ticagrelor 90 mg tablet (Brilinta) 90 mg PO BID BLOOD THINNER 08/28/22 [History Last Taken 08/28/22] Allergy/AdvReac Type Severity Reaction Status Date / Time No Known Allergies Allergy Verified 08/28/22 08:24 Surgical History History of coronary artery stent placement (04/24/21) Social History household members: family housing: house Smoking Status: Never smoker alcohol intake: former substance use type: marijuana what type of physical activity do you participate in: none ROS ROS Narrative Constitutional: Reports fatigue and weakness. No fever HEENT: Reports systems reviewed and no addt'l complaints, except as documented Respiratory/Chest: As described in HPI. Denies chronic lung disease. Sometimes smokes marijuana. Gastrointestinal: Denies coffee ground emesis, hematemesis or vomiting Genitourinary: Denies burning urination or new urinary tract symptoms Musculoskeletal: Denies joint pain and limited range of motion Neurologic: Denies seizure-like activity skin: No ulcer. No rash Endocrinology: Reports systems reviewed and no addt'l complaints, except as documented Hematologic/Lymphatic: Reports systems reviewed and no addt'l complaints, except as documented Rest 14 ROS are negative except as mentioned in HPI Vital Signs Vital Signs Vital Signs: 08/28/22 08:24 08/28/22 08:28 08/28/22 08:50 Temperature 97.7 F L Temperature Source Oral Pulse Rate 46 L Respiratory Rate 21 H Respiratory Effort Normal Non-Labored Blood Pressure 188/98 H Blood Pressure Mean 128 Pulse Ox 100 Oxygen Delivery Method Room Air Nasal Cannula Oxygen Flow Rate (L/min) 2 08/28/22 08:30 08/28/22 08:51 08/28/22 09:00 Temperature Temperature Source Pulse Rate 59 L 54 L 48 L Respiratory Rate 20 H 18 Respiratory Effort Blood Pressure 191/110 H 167/99 H 166/89 H Blood Pressure Mean 137 121 114 Pulse Ox 100 100 Oxygen Delivery Method Room Air Room Air Oxygen Flow Rate (L/min) 08/28/22 09:15 Temperature Temperature Source Pulse Rate 41 L Respiratory Rate 13 Respiratory Effort Blood Pressure 147/80 H Blood Pressure Mean 102 Pulse Ox 96 Oxygen Delivery Method Room Air Oxygen Flow Rate (L/min) Weight Weight: 260 lb Body Mass Index (BMI) 35.2 Physical Exam Narrative Physical exam General: Alert, Oriented x3, Cooperative, BMI 37.5 kg/m? HEENT: Atraumatic, PERRLA, EOMI, Normocephalic Oral: Oral mucosa moist. No Gingival or Mucosal Lesions/ Ulcerations Neck: Supple, No JVD, Negative Carotid Bruits Lungs: Air entry diminished in bilateral lung bases. No crepitation/rhonchi Cardiovascular: Sinus bradycardia, Normal S1, Normal S2, No murmurs Abdomen: Bowel Sounds Present, Soft, Non Tender, Non-Distended : No renal angle tenderness. No suprapubic tenderness. Extremities: No edema, Capillary Refill Less than 3 Seconds Skin: No rashes, No breakdown Musculoskeletal: No Tenderness to Palpation of Joints or Extremities. Muscle strength 5/5 at major joints. Neurological: Cranial nerves II-XII grossly intact, DTR 2+/4 and Symmetrical, Neuro grossly intact Psych/Mental Status: Normal Affect, Appropriate. Results Lab / Micro Data Result Diagrams: 08/28/22 08:30 08/28/22 08:30 Labs: Laboratory Results - last 24 hr 08/28/22 08:30: WBC 15.3 H, RBC 5.20, Hgb 16.0, Hct 46.0, MCV 88.5, MCH 30.8, MCHC 34.8, RDW Std Deviation 43.2, RDW Coeff of Elias 13.3, Plt Count 309, MPV 11.0, Immature Gran % (Auto) 0.300, Neut % (Auto) 54.3, Lymph % (Auto) 28.2, Mon o % (Auto) 8.2, Eos % (Auto) 8.5 H, Baso % (Auto) 0.5, Absolute Neuts (auto) 8.3 H, Absolute Lymphs (auto) 4.32, Nucleated RBC % 0 08/28/22 08:30: Sodium 140, Potassium 4.0, Chloride 106, Carbon Dioxide 24.0, Anion Gap 10, BUN 9, Creatinine 0.97, Estim Creat Clear Calc 103.33, Est GFR (MDRD) Af Amer 107, Est GFR (MDRD) Non-Af 89, BUN/Creatinine Ratio 9.3 L, Glucose 163 H, Calcium 9.7, Troponin I High Sens 159 H* 08/28/22 08:30: D-Dimer Quant (PE/DVT) 0.28 08/28/22 08:30: PT 13.0, INR 1.0, APTT 30.7 Radiology Impression Chest X-Ray 08/28/22 08:38 IMPRESSION: Mild cardiomegaly. Electronically Signed: Steve Jung MD at 9:12 EDT , Assessment & Plan Assessment/Plan (1) Non-ST elevation AL (NSTEMI): PLAN: Plan This is 47-year-old gentleman admitted with chest pain for for last 2 days and high troponin consistent with non-STEMI. ?1.? Non-STEMI: Patient is admitted in PCU. Serial troponin shows high output trending, 159, 926 and 5097. Bunk Assembler is consulted from ED. Patient currently on IV heparin drip. Continue aspirin and Brilinta. Repeat EKG does not show acute ST-T changes. Fasting profile prior TSH ordered for tomorrow a.m. patient not candidate for beta-flo as heart rate in 40s to 50s. At home, the patient on metoprolol succinate 25 mg daily but on hold due to bradycardia. 2. Coronary artery disease s/p cardiac stents: Patient cardiac cath on 04/24 showed ostial LAD 80%, mid LAD subtotally occluded with distal vessel filling, mid circumflex 75% stenosis, proximal RCA 60%? EF 50% with anterior hypokinesis.? Patient had PCI of LAD and mid circumflex.? Continue aspirin, statin and lisinopril, isosorbide mononitrate.? 2.? Diabetes mellitus type 2: Patient is states he takes insulin at home. Glucose 163. In March 2021, A1c 8.8.? 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 Home dose insulin regimen. Accu-Cheks before meals and at bedtime and cover with Humalog sliding scale. 4. Other chronic comorbidities include GERD, morbid obesity, BMI 37.5 kg/m?: Patient on Protonix, fluoxetine. Weight loss counseling done 5.? VTE prophylaxis: Patient on heparin drip Living will/advanced directive/end of life care: Patient does not have living will or advanced directive. His girlfriend is at the bedside is next to kin after discussion of benefits/risks procedures involved with full code, DNR CC arrest and DNR CC, the patient opted for full code. Patient does want artificial life support including intubation, tube feed, ventilator and/chest compression, central venous catheter, vasopressor and DC shock if needed Total time spent in [id number] encounter in discussion of advanced directive 16 minutes. Charges/Coding Visit Charges Inpatient E&M: 66469 Init Hosp L3 Procedures Hospitalists Procedures: 82642 Advncd Care Plan 30 Min
[2022-08-28 10:31] LABS: Magnesium 2.1 mg/dL (1.6-2.6); Phosphorus 2.2 mg/dL (2.5-4.9)
[2022-08-28 10:44] LABS: Reflex Troponin-HS? (from REC) Y
[2022-08-28] MEDS: HEPARIN/D5w 25,000 UNITS 25,000 UNITS/250 ML IV.SOLN. 16 UNITS CONT INF (10:59)
[2022-08-28] MEDS: Heparin Injection (Vial) 5,000 UNIT/ML VIAL 9500 UNIT IV (11:01)
[2022-08-28 11:21] LABS: Troponin-I HS 926 pg/mL (3.0-78.0)
--- NOTE | 2022-08-28 11:22 | EKG12_ITS ---
Test Reason : CP ADMIT Blood Pressure : / mmHG Vent. Rate : 058 BPM Atrial Rate : 058 BPM P-R Int : 190 ms QRS Dur : 102 ms QT Int : 446 ms P-R-T Axes : 019 064 029 degrees QTc Int : 437 ms Sinus bradycardia Inferior infarct , age undetermined , cannot be excluded Poor R wave progression Abnormal ECG Confirmed by GITA JUAREZ, ROCIO ([id number]), purchasing expeditor OPAL GUERRERO ([id number]) on 08/29/2022 9:36:16 AM Referred By: ÓSCAR Confirmed By:ROCIO PELAYO MD
[2022-08-28] MEDS: KCL 20MEQ in 0.9% NS 20 MEQ/1,000 ML IV.SOLN. 75 MEQ IV (12:10)
[2022-08-28] MEDS: Insulin Lispro 100 UNIT/ML INSULN.PEN SC ×2 (12:13→16:15)
--- NOTE | 2022-08-28 12:21 | CASEMGMT ---
According to the [facility] website, the following are in-network tertiary facilities: [facility], [place], [facility], [facility], [facility], [facility], and . Arturo VILLALOBOS CM
[2022-08-28 12:35] LABS: Bedside Glucose 170 mg/dL (74-106)
[2022-08-28 14:54] LABS: Troponin-I HS 5097 pg/mL (3.0-78.0)
[2022-08-28 16:36] LABS: Bedside Glucose 173 mg/dL (74-106)
[2022-08-28 17:20] LABS: Partial Thromboplast Time 113.3 Seconds (24.1-36.2)
--- NOTE | 2022-08-28 17:59 | PCM.CONS.C ---
Assessment & Plan Assessment/Plan (1) Unstable angina: PLAN: The patient presents with findings compatible with unstable angina pectoris/accelerating angina pectoris. At the present time he also has objective findings compatible with an acute non-ST segment elevation KS. He is being monitored. He is being treated medically. He has been recommended for further evaluation both noninvasively and invasively. This would include an echocardiogram to reassess his left ventricular wall motion and systolic function and a diagnostic cardiac catheterization. (2) Non-ST elevation KS (NSTEMI): PLAN: The patient has findings compatible with an acute non-ST segment elevation KS. Again he will continue to be monitored. He will continue medical management as deemed appropriate. He will proceed with additional noninvasive and invasive studies. This does include a diagnostic cardiac catheterization. The procedure and risks have been discussed with him. He is agreeable to this approach. (3) CAD (coronary artery disease): PLAN: The patient has a history of CAD. He is undergone previous evaluation as noted. At the moment there are concerns about progression of his CAD or the possibility of in-stent restenosis. He will continue medical management and further cardiovascular evaluation as noted. (4) History of coronary artery stent placement: PLAN: The patient's previous PCI history was reviewed. At the present time there would be concern as to whether or not there is progression of paimiut vessel disease versus in-stent restenosis. He will continue his current medical therapy. He will continue further evaluation as noted. (5) Hyperlipidemia: QUALIFIERS: Hyperlipidemia type: mixed hyperlipidemia Qualified Code(s): E78.2 - Mixed hyperlipidemia PLAN: He should continue risk factor modification medical management (6) Essential hypertension: PLAN: His blood pressure will be followed. His medicines can be adjusted accordingly. (7) Diabetes: QUALIFIERS: Diabetes mellitus type: type 2 Diabetes mellitus halfway insulin use: with halfway use Diabetes mellitus complication status: with hyperglycemia Qualified Code(s): E11.65 - Type 2 diabetes mellitus with hyperglycemia; Z79.4 - watermaster (current) use of insulin PLAN: He will continue evaluation care per internal medicine. 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 Harrison. This note was generated using a voice recognition system and there may be incorrect words, spelling or punctuation that were not noted when reviewing the office note prior to saving. HPI Consult Data Date of Consult: 08/28/22 HPI Narrative HPI Narrative: MICHAEL NAVA, is a 47 year old white male who presents for cardiovascular consultation based upon concerns of symptoms compatible with unstable angina pectoris and abnormal cardiac enzymes compatible with an acute non-ST segment elevation KS superimposed upon a history of underlying CAD status post LAD and LCx PTCA/stent, hyperlipidemia, hypertension, and diabetes mellitus. The patient notes over the last 24 to 48 hours he has been having episodes of nonexertional and nocturnal chest discomfort which he describes as a gas sensation. He states it feels as if he has had tightness in his chest. It is not necessarily radiated to his neck or upper extremities. He may have felt some nausea but had no emesis. He has had no significant change in his respiratory pattern. There is been no orthopnea or PND or peripheral pitting edema. There has been no report of near syncope or syncope. He notes today he awoke with his discomfort. As he felt worse he presented to the emergency department for further evaluation. In the emergency department he was evaluated. He was noted to have an abnormal troponin I level of 159. His ECG demonstrated sinus rhythm with no acute ECG changes. His chest x-ray demonstrated no acute changes. He was subsequently placed on IV heparin and placed in the PCU for further evaluation and care. His cardiac enzymes have been followed and have increased. Repeat ECG demonstrated no acute ECG changes. At the present time he appears to be resting comfortably. He has family members at his side. [facility] Medical History Anxiety Atherosclerosis of coronary artery without angina pectoris Cataract Depression Diabetes Diabetes mellitus type II, uncontrolled Essential hypertension Gastroesophageal reflux History of anxiety History of non-ST elevation myocardial infarction (NSTEMI) (04/21/21) Kidney stones Obesity Obesity Substance abuse Home Medications albuterol sulfate 90 mcg/actuation aerosol inhaler 90 mcg inhalation PRN PRN Wheezing 02/16/21 [History Last Taken Unknown] nitroglycerin 0.4 mg sublingual tablet 0.4 mg sublingual Q5M PRN Cardiac/Chest Pain #30 tabs 04/25/21 [Rx Last Taken Unknown] levothyroxine 25 mcg tablet 25 tablet PO DAILY THYROID 07/20/21 [History Last Taken 2 Days Ago ~08/26/22] pen needle, diabetic 31 gauge x 15/64 #50 ea 07/20/21 [History Last Taken Unknown] OneTouch Verio Flex meter (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 meter) #1 ea 09/04/21 [Rx Last Taken Unknown] OneTouch Verio test strips (blood sugar diagnostic) #450 ea 09/04/21 [Rx Last Taken Unknown] FreeStyle Lite Strips (blood sugar diagnostic) #100 ea 09/06/21 [Rx Last Taken Unknown] albuterol sulfate 90 mcg/actuation aerosol inhaler (Ventolin HFA) 2 puff inhalation Q4H PRN PRN Wheezing ##1 12/20/21 [Rx Last Taken Unknown] pen needle, diabetic 31 gauge x 1/4 #120 ea 01/15/22 [Rx Last Taken Unknown] flash glucose sensor (FreeStyle Ximena 2 Sensor kit) #6 ea 07/16/22 [Rx Last Taken Unknown] aspirin 81 mg chewable tablet 81 mg PO [facility] 08/28/22 [History Last Taken 08/28/22] atorvastatin 40 mg tablet 40 mg PO DAILY CHOLESTEROL 08/28/22 [History Last Taken 08/28/22] dulaglutide 0.75 mg/0.5 mL subcutaneous pen injector (Trulicity) 0.75 mg subcut TU DIABETES 08/28/22 [History Last Taken 08/21/22] insulin aspart U-100 100 unit/mL (3 mL) subcutaneous pen 15 unit subcut TIDCM DIABETES 08/28/22 [History Last Taken 08/27/22] insulin glargine 100 unit/mL (3 mL) subcutaneous pen 26 unit subcut DAILY DIABETES 08/28/22 [History Last Taken 08/27/22] isosorbide mononitrate 30 mg tablet,extended release 24 hr 30 mg PO DAILY ANGINA 08/28/22 [History Last Taken 08/28/22] lisinopril 20 mg tablet 20 mg PO DAILY BLOOD PRESSURE 08/28/22 [History Last Taken 08/28/22] metoprolol succinate 25 mg tablet,extended release 24 hr 25 mg PO DAILY BLOOD PRESSURE 08/28/22 [History Last Taken 08/28/22] omeprazole 20 mg capsule,delayed release 20 mg PO DAILY GERD 08/28/22 [History Last Taken 2 Days Ago ~08/26/22] ticagrelor 90 mg tablet (Brilinta) 90 mg PO BID BLOOD THINNER 08/28/22 [History Last Taken 08/28/22] Allergy/AdvReac Type Severity Reaction Status Date / Time No Known Allergies Allergy Verified 08/28/22 08:24 Surgical History History of coronary artery stent placement (04/24/21) Social History household members: family housing: house Smoking Status: Never smoker alcohol intake: former substance use type: marijuana what type of physical activity do you participate in: none ROS Constitutional Constitutional: Reports as per HPI Eyes Eyes: Reports as per HPI ENT HEENT: Reports as per HPI Cardiovascular Cardiovascular: Reports chest pain at rest and nausea Respiratory/Chest Respiratory/Chest: Reports as per HPI Gastrointestinal Gastrointestinal: Reports nausea Genitourinary Genitourinary: Reports as per HPI Musculoskeletal Musculoskeletal: Reports as per HPI Integumentary Integumentary: Reports as per HPI Neurologic Neurologic: Reports as per HPI Psychiatric Psychiatric: Reports as per HPI Physical Exam Const alert, oriented x3 and no apparent distress Orientation / Consciousness: awake HEENT normocephalic, head/scalp atraumatic and hearing grossly normal bilaterally Eyes PERRL, EOMs intact bilaterally, conjunctivae normal and no scleral icterus Neck full ROM, supple and no JVD Carotids: normal carotid upstroke Resp normal respiratory effort and clear to auscultation bilaterally Cardio regular rate, regular rhythm, S1 normal heart sound and S2 normal heart sound GI normal to inspection, nondistended, normoactive bowel sounds Extremity no pedal edema Skin no rashes or lesions noted Psych mental status grossly normal Risk Stratification Risk Stratification Applicable: Yes Age >/= 65: No >/= 3 CAD Risk Factors (HTN, HLD, DM, family hx of CAD, or current smoker): Yes Aspirin Use in the Past 7 Days: Yes Severe Angina (>/= episodes in 24 hours): Yes EKG ST Changes >/= 0.5mm: No Positive Cardiac Marker: Yes ANT Risk Stratification Score: 4 ANT % Risk: 20% Risk Procedure Criteria Type of Procedure Procedure Type: Elective Elective Risks - COVID COVID Risk Discussion: The surgeon/proceduralist and patient have discussed in detail the risk of exposure to and/or potential harm posed by the COVID-19 virus with having a surgery/procedure at this time versus the risk of delaying the surgery/procedure. It is not possible to know either the risk of delaying the surgery or procedure or chance of getting an infection with perfect accuracy, but a joint decision was made between the patient and the surgeon/proceduralist to proceed at this time with the scheduled surgery/procedure as indicated on the consent form. Objective Data Vital Signs: Vital Signs Temp Pulse Resp BP Pulse Ox O2 Del Method O2 Flow Rate 98.2 F 68 16 164/88 H 97 Room Air 2 08/28/22 17:02 08/28/22 17:02 08/28/22 17:02 08/28/22 17:02 08/28/22 17:02 08/28/22 17:02 08/28/22 11:02 Oxygen Flow Rate (L/min) 2 Oxygen Delivery Method Room Air Weight: 276 lb 3.827 oz Body Mass Index (BMI) 37.4 Intake & Output: Intake and Output for Last 24 Hours 08/26/22 08/27/22 08/28/22 23:59 23:59 23:59 Intake Total 514.1 / 514.1 Balance 514.1 / 514.1 Lab / Micro Data Result Diagrams: 08/28/22 08:30 08/28/22 08:30 Labs: Laboratory Results - last 24 hr 08/28/22 08:30: WBC 15.3 H, RBC 5.20, Hgb 16.0, Hct 46.0, MCV 88.5, MCH 30.8, MCHC 34.8, RDW Std Deviation 43.2, RDW Coeff of Elias 13.3, Plt Count 309, MPV 11.0, Immature Gran % (Auto) 0.300, Neut % (Auto) 54.3, Lymph % (Auto) 28.2, [place] % (Auto) 8.2, Eos % (Auto) 8.5 H, Baso % (Auto) 0.5, Absolute Neuts (auto) 8.3 H, Absolute Lymphs (auto) 4.32, Nucleated RBC % 0 08/28/22 08:30: Sodium 140, Potassium 4.0, Chloride 106, Carbon Dioxide 24.0, Anion Gap 10, BUN 9, Creatinine 0.97, Estim Creat Clear Calc 103.33, Est GFR (MDRD) Af Amer 107, Est GFR (MDRD) Non-Af 89, BUN/Creatinine Ratio 9.3 L, Glucose 163 H, Calcium 9.7, Troponin I High Sens 159 H* 08/28/22 08:30: D-Dimer Quant (PE/DVT) 0.28 08/28/22 08:30: PT 13.0, INR 1.0, APTT 30.7 08/28/22 08:30: Phosphorus 2.2 L, Magnesium 2.1 08/28/22 10:51: Troponin I High Sens 926 H* 08/28/22 12:12: POC Glucose 170 H 08/28/22 14:25: Troponin I High Sens 5097 H* 08/28/22 16:14: POC Glucose 173 H 08/28/22 16:50: APTT 113.3 H* Cardiology Labs/Tests 08/28/22 08:30: WBC 15.3 H, RBC 5.20, Hgb 16.0, Hct 46.0, MCV 88.5, MCH 30.8, MCHC 34.8, Plt Count 309, MPV 11.0, Immature Gran % (Auto) 0.300, Neut % (Auto) 54.3, Lymph % (Auto) 28.2, [place] % (Auto) 8.2, Eos % (Auto) 8.5 H, Baso % (Auto) 0.5, Absolute Neuts (auto) 8.3 H, Nucleated RBC % 0 08/28/22 08:30: Sodium 140, Potassium 4.0, Chloride 106, Carbon Dioxide 24.0, Anion Gap 10, BUN 9, Creatinine 0.97, Est GFR (MDRD) Af Amer 107, Est GFR (MDRD) Non-Af 89, BUN/Creatinine Ratio 9.3 L, Glucose 163 H, Calcium 9.7 08/28/22 08:30: D-Dimer Quant (PE/DVT) 0.28 08/28/22 08:30: PT 13.0, INR 1.0, APTT 30.7 08/28/22 08:30: Phosphorus 2.2 L, Magnesium 2.1 08/28/22 16:50: APTT 113.3 H* Rhythm: Sinus rhythm EKG: As noted above ECHO: 04-22-2021 Interpretation Summary The estimated ejection fraction is EF 50-55 %. Apical hypokinesia Cardiac Cath: 04-24-2021 CONCLUSIONS Severe disease involving a subtotally occluded left anterior descending artery with some right to left collaterals and a high-grade stenosis noted in the mid left circumflex artery.? Moderate disease noted in the right coronary artery.? Mild left ventricular systolic dysfunction. RECOMMENDATIONS Referred for immediate PCI DESCRIPTION OF? PROCEDURE The patient arrived to the procedure lab. The risks and benefits of the procedure as well as a full description of our services here and current unavailability of surgical backup were fully explained to the patient and/or their significant other prior to the catheterization. The Timeout was completed, verifying the correct patient and procedure. The patient's procedural site was prepped and draped in the usual fashion. Local anesthetic was given subcutaneously to right radial region with Lidocaine 2%. Using a modified Seldinger technique, arterial access was obtained via the right radial artery, a 6Fr sheath was inserted.? Right Coronary Artery selective angiography was then performed in multiple views using a 5 Fr. 4.0 Westpoint catheter. Left Coronary Artery selective angiography was performed in multiple views using a 5 Fr. 4.0 Westpoint catheter. Left Ventriculography was performed in REA projection using a 5 Fr. Pigtail catheter. LV to AO pullback pressures were then recorded. CORONARY ANGIOGRAPHY DOMINANCE:? Right Dominant LEFT HEART ASSESSMENT Left Ventricular Ejection Fraction: by LV Gram 50 % Anterior Hypokinesis - Mild Normal Left Ventricular systolic function LEFT MAIN: Angiographically normal LEFT ANTERIOR DESCENDING ARTERY: MID LAD: Subtotally occluded with distal vessel filling DIAGONAL 1: Ostial - 80 % Stenosis CIRCUMFLEX ARTERY: MID CIRC: 75 % Stenosis RIGHT CORONARY ARTERY: Diffusely diseased up to 30 % PROX RCA: 60 % Stenosis COLLATERAL FLOW: Collateral flow from Right to Left PCI: 04-24-2021 CONCLUSIONS Successful [place] to mid LAD and pOM1 RECOMMENDATIONS DESCRIPTION OF? PROCEDURE The patient arrived to the procedure lab. The risks and benefits of the procedure as well as a full description of our services here and current unavailability of surgical backup were fully explained to the patient and/or their significant other prior to the catheterization. The Timeout was completed, verifying the correct patient and procedure. The patient's procedural site was prepped and draped in the usual fashion. Local anesthetic was given subcutaneously to right radial region with Lidocaine 2% Using a modified Seldinger technique,arterial access was obtained via the right radial artery, a 6Fr sheath was inserted. Right Coronary Artery selective angiography was then performed in multiple views using a 5 Fr. 4.0 Westpoint catheter. Left Coronary Artery selective angiography was performed in multiple views using a 5 Fr. 4.0 Westpoint catheter. Left Ventriculography was performed in REA projection using a 5 Fr. Pigtail catheter. LV to AO pullback pressures were then recorded.The images were reviewed and options discussed. A decision was then made to proceed with an Intervention, IVUS or other adjunct procedure. ? ? XB 3.0 Guide catheter was inserted and engaged into the LCA. BMW Guide wire was advanced to the LAD. 1.5 x 15 Emerge (OTW) Balloon catheter was inserted. 1.2 x 15 Emerge Balloon catheter was advanced across lesion in the LAD, mid. PTCA balloon inflated at 18 atms for 16 secs. PTCA balloon inflated at 18 atms for 18 secs. PTCA balloon inflated at 18 atms for 11 secs. PTCA balloon inflated at 18 atms for 12 secs. Angiogram performed post balloon dilatation. 2.25 x 20 Emerge Balloon catheter was advanced across lesion in the LAD, mid. PTCA balloon inflated at 6 atms for 12 secs. PTCA balloon inflated at 6 atms for 12 secs. Orsiro 2.5 x 40 Drug Eluting stent was advanced across the lesion in the LAD, mid. 2.5 x 30 NC Emerge Balloon catheter was inserted post stent. Angiogram performed post stent deployment. Guide wire was repositioned to the 1st OM 3.0 x 12 Emerge Balloon catheter was advanced across lesion in the first obtuse marginal, proximal. PTCA balloon inflated at 10 atms for 12 secs. Orsiro 4.0 x 18 Drug Eluting stent was advanced across the lesion in the first obtuse marginal, proximal. 4.0 x 12 NC Emerge Balloon catheter was inserted post stent. Angiogram performed post balloon dilatation. ? The arterial sheath was pulled and a TR Band was applied for hemostasis INTERVENTION INFORMATION LESION SITE: LAD (Mid) Lesion Complexity: High/C, chronic total occlusion: Yes, lesion at bifurcation: No, thrombus present: No, lesion length: 38 mm, culprit lesion: Yes, Previously treated lesion: No ?Pre Stenosis: 100 % Pre intervention ANT flow: 1 PROCEDURE: Drug Eluting Stent with pre and post dilatation Post Stenosis: 0 %? Post intervention ANT flow: 3 Lesion Devices: Marion .014 BMW [place] Straight 190cm Cardinal 6 Fr XB3.0 100cm Guide Catheter Santosh Sci EMERGE OTW 1.50x15 BALLOON Marion Doc Guide Wire [employer] 6 Macedonian GuideLiner Santosh Sci EMERGE MR 1.20x15 BALLOON Santosh Sci EMERGE MR 2.25x20 BALLOON Santosh Sci NC EMERGE MR 2.50x30 BALLOON LESION SITE: 1st OM (Proximal) Lesion Complexity: High/C, chronic total occlusion: No, lesion at bifurcation: No, thrombus present: No, lesion length: 11 mm, culprit lesion: Yes, Previously treated lesion: No ?Pre Stenosis: 95 %? Pre intervention ANT flow: 3 PROCEDURE: Drug Eluting Stent with pre and post dilatation Post Stenosis: 0 %? Post intervention ANT flow: 3 Lesion Devices: Marion .014 BMW [place] Straight 190cm Cardinal 6 Fr XB3.0 100cm Guide Catheter Santosh Sci EMERGE MR 3.00x12 BALLOON Santosh Sci NC EMERGE MR 4.00x12 BALLOON Radiography Diagnostic Testing: Radiology Impression Chest X-Ray 08/28/22 08:38 IMPRESSION: Mild cardiomegaly. Electronically Signed: Steve Jung MD at 9:12 EDT ,
[2022-08-28] MEDS: TICAGRELOR 90 MG TABLET PO (22:17)
[2022-08-28 22:40] LABS: Bedside Glucose 150 mg/dL (74-106)
[2022-08-28] MEDS: 0.9% Normal Saline 1,000 ML 15 ML IV (23:42)
[2022-08-29] VITALS (20 sets, daily range): BP systolic 108–160; BP diastolic 66–92; PULSE 55–67; RESP 16–60; TEMP 36.4–36.6; O2SAT 94–99
[2022-08-29 01:51] LABS: Absolute Lymphocyte Count 3.03 X10^3/uL (0.83-4.51); Absolute Neutrophil Count 10.5 X10^3/uL (2.0-7.7); Basophil# 0.04 X10^3/uL; Basophil% 0.3 % (0-1); Eosinophil# 0.63 X10^3/uL; Hematocrit 42.3 % (40-54); Hemoglobin 14.8 g/dL (13.0-16.5); Lymphocyte # 3.03 X10^3/ul (0.83-4.51); Lymphocyte % 19.5 % (19-41); Mean Corpuscular Hgb 31.6 pg (27.0-32.0); Mean Corpuscular Volume 90.4 fL (80-94); Mean Platelet Vol. 10.9 fl (6.2-12.0); Monocyte# 1.32 X10^3/uL; Monocyte% 8.5 % (0-10); NRBC Flagged by Analyzer 0 % (0-5); Neutrophil % 67.4 % (47-70); Platelet Count 233 K/mm3 (150-450); RBC Distribution Width CV 13.5 % (11.6-14.6); RBC Distribution Width SD 44.6 fl (35.1-43.9); Red Blood Count 4.68 M/mm3 (4.6-6.2); White Blood Count 15.6 K/mm3 (4.4-11.0)
[2022-08-29 02:00] LABS: Partial Thromboplast Time 45.1 Seconds (24.1-36.2)
[2022-08-29 02:26] LABS: ALB/GLOB Ratio 0.9 RATIO (0.9-2.4); AST(SGOT) 56 U/L (15-37); Alanine Aminotransfer ALT/SGPT 31 U/L (16-61); Albumin, Serum 3.3 g/dL (3.2-5.0); Alkaline Phosphatase 118 U/L (45-117); Anion Gap 6 (5-15); BUN 9 mg/dL (7-18); BUN/Creat Ratio 10.5 RATIO (10-20); Calcium,Total 8.8 mg/dL (8.5-10.1); Chloride 109 mmol/L (98-107); Cholesterol 102 mg/dL (200); Creatinine, Serum 0.86 mg/dL (0.70-1.30); EST Glomerular Filtration Rate 102 mL/min (>60); Est Glom Filt Rate - Afr Amer 123 mL/min (>60); Estimated Creatinine Clearance 116.55 ml/min; Globulin 3.6 g/dL (2.2-4.2); Glucose 141 mg/dL (74-106); High Density Lipoprotein 29 mg/dL; Potassium 4.2 mmol/L (3.5-5.1); Protein, Total 6.9 g/dL (6.4-8.2); Sodium Level 140 mmol/L (136-145); Thyroid Stim Hormone (TSH) 2.07 uIU/mL (0.358-3.74); Triglycerides 84 mg/dL; Very Low Density Lipoprotein 17 mg/dL (5-40)
[2022-08-29] MEDS: Heparin Injection (Vial) 5,000 UNIT/ML VIAL IV (02:40)
[2022-08-29] MEDS: Aspirin E.C. 81 MG Tablet PO (06:03)
[2022-08-29] MEDS: TICAGRELOR 90 MG TABLET PO ×2 (06:03→21:00)
[2022-08-29] MEDS: Levothyroxine 25 MCG TABLET PO (06:03)
[2022-08-29] MEDS: Isosorbide Mononitrate 30 MG Tablet PO (06:03)
[2022-08-29] MEDS: Pantoprazole Sodium 20 MG Tablet PO (06:04)
[2022-08-29] MEDS: Metoprolol(XL)Succ 25 MG Tablet PO (06:04)
[2022-08-29] MEDS: Lisinopril 20 MG Tablet PO (06:04)
[2022-08-29 06:25] LABS: Bedside Glucose 138 mg/dL (74-106)
--- NOTE | 2022-08-29 08:01 | PN.CARD_ITS ---
Subjective Subjective Patient seen and evaluated Objective Data Vital Signs: Vital Signs Temp Pulse Resp BP Pulse Ox O2 Del Method O2 Flow Rate 97.5 F L 58 L 18 160/92 H 97 Room Air 2 08/29/22 05:27 08/29/22 06:53 08/29/22 05:27 08/29/22 05:27 08/29/22 05:27 08/29/22 05:27 08/28/22 23:33 Oxygen Flow Rate (L/min) 2 Oxygen Delivery Method Room Air Weight: 276 lb 3.827 oz Body Mass Index (BMI) 37.4 Intake & Output: Intake and Output for Last 24 Hours 08/27/22 08/28/22 08/29/22 23:59 23:59 23:59 Intake Total 1804.1 / 1804.1 1221.1 / 1221.1 Balance 1804.1 / 1804.1 1221.1 / 1221.1 Lab / Micro Data Result Diagrams: 08/29/22 01:40 08/29/22 01:40 Labs: Laboratory Results - last 24 hr 08/28/22 08:30: WBC 15.3 H, RBC 5.20, Hgb 16.0, Hct 46.0, MCV 88.5, MCH 30.8, MCHC 34.8, RDW Std Deviation 43.2, RDW Coeff of Elias 13.3, Plt Count 309, MPV 11.0, Immature Gran % (Auto) 0.300, Neut % (Auto) 54.3, Lymph % (Auto) 28.2, [place] % (Auto) 8.2, Eos % (Auto) 8.5 H, Baso % (Auto) 0.5, Absolute Neuts (auto) 8.3 H, Absolute Lymphs (auto) 4.32, Nucleated RBC % 0 08/28/22 08:30: Sodium 140, Potassium 4.0, Chloride 106, Carbon Dioxide 24.0, Anion Gap 10, BUN 9, Creatinine 0.97, Estim Creat Clear Calc 103.33, Est GFR (MDRD) Af Amer 107, Est GFR (MDRD) Non-Af 89, BUN/Creatinine Ratio 9.3 L, Glucose 163 H, Calcium 9.7, Troponin I High Sens 159 H* 08/28/22 08:30: D-Dimer Quant (PE/DVT) 0.28 08/28/22 08:30: PT 13.0, INR 1.0, APTT 30.7 08/28/22 08:30: Phosphorus 2.2 L, Magnesium 2.1 08/28/22 10:51: Troponin I High Sens 926 H* 08/28/22 12:12: POC Glucose 170 H 08/28/22 14:25: Troponin I High Sens 5097 H* 08/28/22 16:14: POC Glucose 173 H 08/28/22 16:50: APTT 113.3 H* 08/28/22 22:14: POC Glucose 150 H 08/29/22 01:40: WBC 15.6 H, RBC 4.68, Hgb 14.8, Hct 42.3, MCV 90.4, MCH 31.6, MCHC 35.0, RDW Std Deviation 44.6 H, RDW Coeff of Elias 13.5, Plt Count 233, MPV 10.9, Immature Gran % (Auto) 0.300, Neut % (Auto) 67.4, Lymph % (Auto) 19.5, [place] % (Auto) 8.5, Eos % (Auto) 4.0, Baso % (Auto) 0.3, Absolute Neuts (auto) 10.5 H, Absolute Lymphs (auto) 3.03, Nucleated RBC % 0 08/29/22 01:40: Sodium 140, Potassium 4.2, Chloride 109 H, Carbon Dioxide 25.0, Anion Gap 6, BUN 9, Creatinine 0.86, Estim Creat Clear Calc 116.55, Est GFR (MDRD) Af Amer 123, Est GFR (MDRD) Non-Af 102, BUN/Creatinine Ratio 10.5, Glucose 141 H, Calcium 8.8, Total Bilirubin 0.80, AST 56 H, ALT 31, Alkaline Phosphatase 118 H, Total Protein 6.9, Albumin 3.3, Globulin 3.6, Albumin/Globulin Ratio 0.9, Triglycerides 84, Cholesterol 102, LDL Cholesterol 56, VLDL Cholesterol 17, HDL Cholesterol 29 L, TSH 2.07 08/29/22 01:40: APTT 45.1 H 08/29/22 06:01: POC Glucose 138 H Cardiology Labs/Tests 08/28/22 08:30: WBC 15.3 H, RBC 5.20, Hgb 16.0, Hct 46.0, MCV 88.5, MCH 30.8, MCHC 34.8, Plt Count 309, MPV 11.0, Immature Gran % (Auto) 0.300, Neut % (Auto) 54.3, Lymph % (Auto) 28.2, [place] % (Auto) 8.2, Eos % (Auto) 8.5 H, Baso % (Auto) 0.5, Absolute Neuts (auto) 8.3 H, Nucleated RBC % 0 08/28/22 08:30: Sodium 140, Potassium 4.0, Chloride 106, Carbon Dioxide 24.0, Anion Gap 10, BUN 9, Creatinine 0.97, Est GFR (MDRD) Af Amer 107, Est GFR (MDRD) Non-Af 89, BUN/Creatinine Ratio 9.3 L, Glucose 163 H, Calcium 9.7 08/28/22 08:30: D-Dimer Quant (PE/DVT) 0.28 08/28/22 08:30: PT 13.0, INR 1.0, APTT 30.7 08/28/22 08:30: Phosphorus 2.2 L, Magnesium 2.1 08/28/22 16:50: APTT 113.3 H* 08/29/22 01:40: WBC 15.6 H, RBC 4.68, Hgb 14.8, Hct 42.3, MCV 90.4, MCH 31.6, MCHC 35.0, Plt Count 233, MPV 10.9, Immature Gran % (Auto) 0.300, Neut % (Auto) 67.4, Lymph % (Auto) 19.5, [place] % (Auto) 8.5, Eos % (Auto) 4.0, Baso % (Auto) 0.3, Absolute Neuts (auto) 10.5 H, Nucleated RBC % 0 08/29/22 01:40: Sodium 140, Potassium 4.2, Chloride 109 H, Carbon Dioxide 25.0, Anion Gap 6, BUN 9, Creatinine 0.86, Est GFR (MDRD) Af Amer 123, Est GFR (MDRD) Non-Af 102, BUN/Creatinine Ratio 10.5, Glucose 141 H, Calcium 8.8, Total Bilirubin 0.80, Triglycerides 84, Cholesterol 102, LDL Cholesterol 56, VLDL Cholesterol 17, HDL Cholesterol 29 L 08/29/22 01:40: APTT 45.1 H Rhythm: EKG: ECHO: Stress Test: Cardiac Cath: PCI: CT Surgery: Holter monitor: EPS: PPM: CXR: Chest CT Scan: Radiography Diagnostic Testing: Radiology Impression Chest X-Ray 08/28/22 08:38 IMPRESSION: Mild cardiomegaly. Electronically Signed: Steve Jung MD at 9:12 EDT , Physical Exam Const alert, oriented x3 and no apparent distress General Appearance: cooperative HEENT hearing grossly normal bilaterally Head and Scalp: atraumatic Eyes EOMs intact bilaterally Neck General: normal visual inspection Chest inspection of chest normal and palpation of chest normal Resp normal respiratory effort Auscultation: clear to auscultation bilaterally Cardio regular rate, regular rhythm, S1 normal heart sound and S2 normal heart sound Jugular Venous Distention: JVD GI normal to inspection, nondistended, normoactive bowel sounds Extremity normal capillary refill and no pedal edema Peripheral Pulses: Yes pulses 2+ throughout and femoral pulses present Skin no rashes or lesions noted Neuro oriented x3 and CN's II-XII intact bilaterally Psych Appearance: grossly normal and appropriate Assessment & Plan Assessment/Plan (1) Non-ST elevation [place] (NSTEMI): PLAN: Patient presents with a non-ST elevation myocardial infarction. He underwent a cardiac catheterization today which demonstrated a subtotal occluded LAD as well as a high-grade circumflex artery stenosis. His left ventricular systolic function is fairly well-preserved. He says that he has been compliant with his medications. Based on the above angiographic findings we would recommend PCI to the LAD as well as the left circumflex system. (2) History of coronary artery stent placement: PLAN: He does have previous stenting placed in the LAD distribution as well as the left circumflex artery distribution. Angiogram results as noted above. (3) Essential hypertension: PLAN: His blood pressure is under good control at this particular time I would not recommend we make any major changes. (4) Hyperlipidemia: QUALIFIERS: Hyperlipidemia type: mixed hyperlipidemia Qualified Code(s): E78.2 - Mixed hyperlipidemia PLAN: He does have a history of hyperlipidemia. He is high risk and would benefit from high intensity statin. Thank you for allowing me to participate in the care of your patient. Please don't hesitate to call if any issues arise.
--- NOTE | 2022-08-29 08:15 | CL.D_ITS ---
Patient Name: MICHAEL NAVA Study Date: 08/29/2022 Performing: Eduardo Harrison MD Ht: 72 inches 182.88 cm : 1975 Wt: 276.24 lbs 125.3 kg Age: 47 Gender: male BSA: 2.44 PROCEDURE(S) PERFORMED DC01-([id number])LHC/COR/LV CLINICAL PROFILE AND INDICATIONS Indications: ACS <= 24 hrs Heart Failure: None Stress/Imaging Stress/Image Study Performed: No CONCLUSIONS Severe two-vessel disease present in both previously stented vessels in the LAD as well as the left circumflex artery distribution. RECOMMENDATIONS Referred for immediate PCI DESCRIPTION OF PROCEDURE The patient arrived to the procedure lab. The risks and benefits of the procedure as well as a full description of our services here and current unavailability of surgical backup were fully explained to the patient and/or their significant other prior to the catheterization. The Timeout was completed, verifying the correct patient and procedure. The patient's procedural site was prepped and draped in the usual fashion. Local anesthetic was given subcutaneously to right radial region with Lidocaine 2%. Using a modified Seldinger technique, arterial access was obtained via the right radial artery, a 6Fr sheath was inserted. Right Coronary Artery selective angiography was then performed in multiple views using a 5 Fr. 4.0 [place] catheter. Left Coronary Artery selective angiography was performed in multiple views using a 5 Fr. 4.0 [place] catheter. Left Ventriculography was performed in REA projection using a 5 Fr. Pigtail catheter. LV to AO pullback pressures were then recorded. CORONARY ANGIOGRAPHY DOMINANCE: Right Dominant LEFT HEART ASSESSMENT Left Ventricular Ejection Fraction: by LV Gram 50 % Inferior Lateral Hypokinesis - Moderate Normal Left Ventricular systolic function LEFT MAIN: Angiographically normal LEFT ANTERIOR DESCENDING ARTERY: The LAD had a previously placed stent in the midsegment and the vessel appears to be subtotally occluded after that with ghost collateral filling. CIRCUMFLEX ARTERY: The mid circumflex artery and a previously stented vessel is noted to have a 95% stenotic lesion present. RIGHT CORONARY ARTERY: Moderate luminal irregularities up to 50% COMPLICATIONS PROCEDURE MEDICATIONS Versed 1 mg IV Fentanyl 50 mcg IV Oxygen: 2 L/min via nasal cannula Heparin given IA 08/29/2022 07:39:08 Heparin 1000 unit(s) IV 08/29/2022 08:03:53 Verapamil 2.5mg, Ntg 100mcgs, 3000 units of Heparin given IA 08/29/2022 07:39:08 SUMMARY OF HEMODYNAMIC DATA Time AIR REST ECG 07:18:32 AO 126/69 (98) SA 07:40:05 LV 148/4, 20 07:46:59 LV 142/6, 18 07:47:07 LV 130/9, 22 07:47:33 LV 129/9, 21 07:47:42 LVp 130/10, 21 07:47:45 AOp 134/47 (91) 07:47:52 Signed By Eduardo Harrison MD On 08/29/2022 08:14:48 Eduardo Harrison MD
--- NOTE | 2022-08-29 08:44 | PN.HOSP_ITS ---
Subjective Subjective Patient did not had chest pain last night. Patient taken for cardiac cath and found previous stents are occluded. Objective Data Objective Data Vital Signs: Vital Signs Temp Pulse Resp BP Pulse Ox O2 Del Method O2 Flow Rate 97.5 F L 58 L 18 160/92 H 97 Room Air 2 08/29/22 05:27 08/29/22 06:53 08/29/22 05:27 08/29/22 05:27 08/29/22 05:27 08/29/22 05:27 08/28/22 23:33 Oxygen Flow Rate (L/min) 2 Oxygen Delivery Method Room Air Weight: 276 lb 3.827 oz Body Mass Index (BMI) 37.4 Intake & Output: Intake and Output for Last 24 Hours 08/27/22 08/28/22 08/29/22 23:59 23:59 23:59 Intake Total 1804.1 / 1804.1 1221.1 / 1221.1 Balance 1804.1 / 1804.1 1221.1 / 1221.1 Lab / Micro Data Result Diagrams: 08/29/22 01:40 08/29/22 01:40 Labs: Laboratory Results - last 24 hr 08/28/22 08:30: WBC 15.3 H, RBC 5.20, Hgb 16.0, Hct 46.0, MCV 88.5, MCH 30.8, MCHC 34.8, RDW Std Deviation 43.2, RDW Coeff of Elias 13.3, Plt Count 309, MPV 11.0, Immature Gran % (Auto) 0.300, Neut % (Auto) 54.3, Lymph % (Auto) 28.2, [place] % (Auto) 8.2, Eos % (Auto) 8.5 H, Baso % (Auto) 0.5, Absolute Neuts (auto) 8.3 H, Absolute Lymphs (auto) 4.32, Nucleated RBC % 0 08/28/22 08:30: Sodium 140, Potassium 4.0, Chloride 106, Carbon Dioxide 24.0, Anion Gap 10, BUN 9, Creatinine 0.97, Estim Creat Clear Calc 103.33, Est GFR (MDRD) Af Amer 107, Est GFR (MDRD) Non-Af 89, BUN/Creatinine Ratio 9.3 L, Glucose 163 H, Calcium 9.7, Troponin I High Sens 159 H* 08/28/22 08:30: D-Dimer Quant (PE/DVT) 0.28 08/28/22 08:30: PT 13.0, INR 1.0, APTT 30.7 08/28/22 08:30: Phosphorus 2.2 L, Magnesium 2.1 08/28/22 10:51: Troponin I High Sens 926 H* 08/28/22 12:12: POC Glucose 170 H 08/28/22 14:25: Troponin I High Sens 5097 H* 08/28/22 16:14: POC Glucose 173 H 08/28/22 16:50: APTT 113.3 H* 08/28/22 22:14: POC Glucose 150 H 08/29/22 01:40: WBC 15.6 H, RBC 4.68, Hgb 14.8, Hct 42.3, MCV 90.4, MCH 31.6, MCHC 35.0, RDW Std Deviation 44.6 H, RDW Coeff of Elias 13.5, Plt Count 233, MPV 10.9, Immature Gran % (Auto) 0.300, Neut % (Auto) 67.4, Lymph % (Auto) 19.5, [place] % (Auto) 8.5, Eos % (Auto) 4.0, Baso % (Auto) 0.3, Absolute Neuts (auto) 10.5 H, Absolute Lymphs (auto) 3.03, Nucleated RBC % 0 08/29/22 01:40: Sodium 140, Potassium 4.2, Chloride 109 H, Carbon Dioxide 25.0, Anion Gap 6, BUN 9, Creatinine 0.86, Estim Creat Clear Calc 116.55, Est GFR (MDRD) Af Amer 123, Est GFR (MDRD) Non-Af 102, BUN/Creatinine Ratio 10.5, Glucose 141 H, Calcium 8.8, Total Bilirubin 0.80, AST 56 H, ALT 31, Alkaline Phosphatase 118 H, Total Protein 6.9, Albumin 3.3, Globulin 3.6, Albumin/Globulin Ratio 0.9, Triglycerides 84, Cholesterol 102, LDL Cholesterol 56, VLDL Cholesterol 17, HDL Cholesterol 29 L, TSH 2.07 08/29/22 01:40: APTT 45.1 H 08/29/22 06:01: POC Glucose 138 H Radiography Diagnostic Testing: Radiology Impression Chest X-Ray 08/28/22 08:38 IMPRESSION: Mild cardiomegaly. 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 General: Alert, Oriented x3, Cooperative, BMI 37.5 kg/m? HEENT: Atraumatic, PERRLA, EOMI, Normocephalic Oral: Oral mucosa moist. No Gingival or Mucosal Lesions/ Ulcerations Neck: Supple, No JVD, Negative Carotid Bruits Lungs: Air entry diminished in bilateral lung bases. No crepitation/rhonchi Cardiovascular: Sinus bradycardia, Normal S1, Normal S2, No murmurs Abdomen: Bowel Sounds Present, Soft, Non Tender, Non-Distended : No renal angle tenderness. No suprapubic tenderness. Extremities: Right radial artery cath approach. No pedal edema, Capillary R efill Less than 3 Seconds Skin: No rashes, No breakdown Musculoskeletal: No Tenderness to Palpation of Joints or Extremities. Muscle strength 5/5 at major joints. Neurological: Cranial nerves II-XII grossly intact, DTR 2+/4 and Symmetrical, Neuro grossly intact Psych/Mental Status: Normal Affect, Appropriate. Assessment & Plan Assessment/Plan (1) Non-ST elevation SC (NSTEMI): PLAN: Plan This is 47-year-old gentleman admitted with chest pain for for last 2 days and high troponin consistent with non-STEMI. ?1.? Non-STEMI: Patient is admitted in PCU. Serial troponin shows high output trending, 159, 926 and 5097. Rehab Department Manager is consulted from ED. Patient currently on IV heparin drip. Continue aspirin and Brilinta. Repeat EKG does not show acute ST-T changes. Fasting profile prior TSH ordered for tomorrow a.m. patient not candidate for beta-flo as heart rate in 40s to 50s. At home, the patient on metoprolol succinate 25 mg daily but on hold due to bradycardia. 08/29: Previous mid LAD subtotally occluded. Mid circumflex previously stented vessel 95% stenotic lesion. RCA moderate 50%. EF 50% by LV gram.PCI and stents were inserted. Final profile shows LDL 56, HDL 29. Total cholesterol 102. TSH 2.07. 2. Coronary artery disease s/p cardiac stents: Patient cardiac cath on 04/24 showed ostial LAD 80%, mid LAD subtotally occluded with distal vessel filling, mid circumflex 75% stenosis, proximal RCA 60%? EF 50% with anterior hypokinesis.? Patient had PCI of LAD and mid circumflex.? Continue aspirin, statin and lisinopril, isosorbide mononitrate.? 2.? Diabetes mellitus type 2: Patient is states he takes insulin at home. Glucose 163. In March 2021, A1c 8.8.? 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 Home dose insulin regimen. Accu-Cheks before meals and at bedtime and cover with Humalog sliding scale. 08/29: A1c 8.5% showing uncontrolled hyperglycemia in last 3 months. Accu-Cheks from 15- 203. Lantus and Premeal Humalog dose increased 4. Other chronic comorbidities include GERD, morbid obesity, BMI 37.5 kg/m?: Patient on Protonix, fluoxetine. Weight loss counseling done 5.? VTE prophylaxis: Patient on heparin drip Living will/advanced directive/end of life care: Patient does not have living will or advanced directive. His girlfriend is at the bedside is next to kin after discussion of benefits/risks procedures involved with full code, DNR CC arrest and DNR CC, the patient opted for full code. Patient does want artificial life support including intubation, tube feed, ventilator and/chest compression, central venous catheter, vasopressor and DC shock if needed Total time spent in [id number] encounter in discussion of advanced directive 16 minutes. Laboratory Results 08/28/22 16:14: POC Glucose 173 H 08/28/22 16:50: APTT 113.3 H* 08/28/22 22:14: POC Glucose 150 H 08/29/22 01:40: WBC 15.6 H, RBC 4.68, Hgb 14.8, Hct 42.3, MCV 90.4, MCH 31.6, MCHC 35.0, RDW Std Deviation 44.6 H, RDW Coeff of Elias 13.5, Plt Count 233, MPV 10.9, Immature Gran % (Auto) 0.300, Neut % (Auto) 67.4, Lymph % (Auto) 19.5, [place] % (Auto) 8.5, Eos % (Auto) 4.0, Baso % (Auto) 0.3, Absolute Neuts (auto) 10.5 H, Absolute Lymphs (auto) 3.03, Nucleated RBC % 0 08/29/22 01:40: Sodium 140, Potassium 4.2, Chloride 109 H, Carbon Dioxide 25.0, Anion Gap 6, BUN 9, Creatinine 0.86, Estim Creat Clear Calc 116.55, Est GFR (MDRD) Af Amer 123, Est GFR (MDRD) Non-Af 102, BUN/Creatinine Ratio 10.5, Glucose 141 H, Calcium 8.8, Total Bilirubin 0.80, AST 56 H, ALT 31, Alkaline Phosphatase 118 H, Total Protein 6.9, Albumin 3.3, Globulin 3.6, Albumin/Globulin Ratio 0.9, Triglycerides 84, Cholesterol 102, LDL Cholesterol 56, VLDL Cholesterol 17, HDL Cholesterol 29 L, TSH 2.07 08/29/22 01:40: Hemoglobin A1c 8.5 H 08/29/22 01:40: APTT 45.1 H 08/29/22 06:01: POC Glucose 138 H 08/29/22 10:57: POC Glucose 203 H Charges/Coding Visit Charges Inpatient E&M: 84053 Subs Hosp L2
[2022-08-29] MEDS: Insulin Glargine-YFGN 100 UNIT/ML Pen 26 UNIT SC (09:31)
--- NOTE | 2022-08-29 09:39 | CRPHASE1 ---
Patient Communication Former Patient:: Phase II PHII Cardiac Rehab Discussed with Patient:: Yes Guide to Cardiac Rehab Given to Patient:: Yes Cardiac Rehab Facility Choice List Given to Patient:: Yes Choice Program [facility] PHII:: Communication Given to CR Mailroom Messenger:: Linette Chen Phase II Cardiac Rehab:: Yes Sessions:: 36 sessions - 3 days/wk, 12 weeks Cardiac Rehabilitation Info Cardiac Rehabilitation Program Information: Cardiac Rehabilitation is important for patients like you who are recovering from a heart problem. Cardiac rehabilitation programs are recognized as integral to the continued care of the patient with coronary heart disease. The cardiac rehabilitation program is designed to optimize a patient's physical, psychological, and social functioning. Health child care lead teacher work in cardiac rehabilitation programs and assist you with getting the treatments you need to get stronger and healthier - like exercise, healthy eating habits, and medications. Cardiac rehabilitation has been show to help people with heart problems live longer and have better life enjoyment than people who do not go to cardiac rehabilitation. Please contact the Cardiac Rehabilitation Program at [facility] at in two weeks if you have not heard from them.
--- NOTE | 2022-08-29 09:39 | CRPH1.INSTRU ---
General Education CAD and cardiac anatomy and function:: Patient communicates acknowledgment, Needs reinforcement Explanation of diagnoses and procedures:: Patient communicates acknowledgment, Needs reinforcement Sign/Symptoms of CO:: Patient communicates acknowledgment, Needs reinforcement Antiplatelet therapy: Patient communicates acknowledgment, Needs reinforcement Proper use of NTG-SL: Patient communicates acknowledgment, Needs reinforcement Emergency procedures and activation of EMS: Patient communicates acknowledgment, Needs reinforcement Compliance of all prescribed medications: Patient communicates acknowledgment, Needs reinforcement Smoking Patient Nicotine/Smoking Risk Factors Are:: Non-smoker Dyslipidemia Patient Dyslipidemia Risk Factors Are:: Total Cholesterol, Triglycerides, HDL, LDL Recommendations Include:: Lipid profile not available, Therapeutic Lifestyle Change dietary guidelines Dyslipidemia Response Code:: Patient communicates acknowledgment, Needs reinforcement Overweight/Obesity Patient Overweight/Obesity Risk Factors Are:: Obesity - > or = 30 Recommendations Include:: Weight loss of 5-10%, Reduced calorie diet, Exercise 5-7 times/week Overweight/Obesity:: Patient communicates acknowledgment, Needs reinforcement Hypertension Recommendations Include:: BP <130/80 if diabetic, DASH dietary guidelines, Decrease/maintain normal body weight Hypertension:: Patient communicates acknowledgment, Needs reinforcement Heart Disease Patient Heart Disease Risk Factors Are:: Previous cardiac event Recommendations Include:: Educated family members of their risk Heart Disease Response Code:: Patient communicates acknowledgment, Needs reinforcement Diabetes Patient Diabetes Risk Factors Are:: Elevated blood sugars Recommendations Include:: Maintain fasting blood sugars 70-110 md/dL, Maintain HgbA1c of 6% or less, Monitor blood sugar as prescribed, Diabetic dietary guidelines, Decrease/maintain body weight Diabetes:: Patient communicates acknowledgment, Needs reinforcement Sedentary Patient Sedentary Risk Factors Are:: Lack of regular exercise Recommendations Include:: Aerobic exercise 5-7 times/week for 20-30 minutes continuously, Benefits of regular exercise, Discussed home walking program, Monitored Outpatient Cardiac Rehab Sedentary Response Code:: Patient communicates acknowledgment, Needs reinforcement Stress Recommendations Include:: Identification of stressors, and assessment of coping skills, Stress management techniques Stress Response Code:: Patient communicates acknowledgment, Needs reinforcement
--- NOTE | 2022-08-29 09:44 | CL.I_ITS ---
Patient Name: MICHAEL NAVA Study Date: 08/29/2022 Performing: Linette Chen MD Ht: 72 inches 182.88 cm : 1975 Wt: 276.24 lbs 125.3 kg Age: 47 Gender: male BSA: 2.44 PROCEDURE(S) PERFORMED IC12-([id number]/[id number])KENT[place] W/WO PTCA, SINGLE CORONARY ARTERY IC12-([id number])[place] W/WO PTCA, SINGLE CORONARY ARTERY CLINICAL PROFILE AND CO-MORBIDITIES Indications: ACS <= 24 hrs Heart Failure: None Stress/Imaging Stress/Image Study Performed: No CONCLUSIONS Successful PTCA/[place] Mid LAD ISR using Synergy 2.5x32 mm Successful [place] Mid LCX into OM1 (ISR) using Synergy 3.5x38 mm RECOMMENDATIONS ASA Indefinitley Brilinta for at least 12 months DESCRIPTION OF PROCEDURE The patient arrived to the procedure lab. The risks and benefits of the procedure as well as a full description of our services here and current unavailability of surgical backup were fully explained to the patient and/or their significant other prior to the catheterization. The Timeout was completed, verifying the correct patient and procedure. The patient's procedural site was prepped and draped in the usual fashion. Local anesthetic was given subcutaneously to right radial region with Lidocaine 2% Using a modified Seldinger technique,arterial access was obtained via the right radial artery, a 6Fr sheath was inserted. Right Coronary Artery selective angiography was then performed in multiple views using a 5 Fr. 4.0 [place] catheter. Left Coronary Artery selective angiography was performed in multiple views using a 5 Fr. 4.0 [place] catheter. Left Ventriculography was performed in REA projection using a 5 Fr. Pigtail catheter. LV to AO pullback pressures were then recorded.The images were reviewed and options discussed. A decision was then made to proceed with an Intervention, IVUS or other adjunct procedure. xb3 Guide catheter was inserted and engaged into the LCA. runthrough Guide wire was advanced to the LAD. runthrough Guide wire was advanced to the OM. nc emerge 2.5 x 30 Balloon catheter was advanced across lesion in the LAD, mid. Angiogram performed pre balloon dilatation. PTCA balloon inflated at 12 atms for 22 secs. PTCA balloon inflated at 4 atms for 16] secs. synergy 2.5 x 32 Drug Eluting stent was advanced across the lesion in the LAD, mid. Angiogram performed post stent deployment. nc emerge 2.5 x 30 Balloon catheter was inserted post stent. Angiogram performed post balloon dilatation. Guide wire was repositioned to the Circumflex synergy 3.5 x 38 Drug Eluting stent was advanced across the lesion in the circumflex, mid. Angiogram performed pre stent deployment. nc emerge 3.5 x 30 Balloon catheter was inserted post stent. Angiogram performed post balloon dilatation. The arterial sheath was pulled and a TR Band was applied for hemostasis INTERVENTION INFORMATION LESION SITE: LAD (Mid) Lesion Complexity: High/C, lesion length: 32 mm, culprit lesion: Yes, In-stent restenosis: Yes Pre Stenosis: 99 % Pre intervention ANT flow: 1 PROCEDURE: Drug Eluting Stent with pre and post dilatation Post Stenosis: 0 % Post intervention ANT flow: 3 Lesion Devices: Cordis 6 Fr XB3.0 100cm Guide Catheter Terumo .014 Runthrough Extra Floppy 180cm straight Santosh Sci NC EMERGE MR 2.50x30 BALLOON Santosh Sci Synergy MR [place] 2.50x32 LESION SITE: Circumflex (Mid) Lesion Complexity: High/C, lesion length: 36 mm, culprit lesion: No, In-stent restenosis: Yes Pre Stenosis: 95 % Pre intervention ANT flow: 3 PROCEDURE: Drug Eluting Stent with post dilatation Post Stenosis: 0 % Post intervention ANT flow: 3 Lesion Devices: Cordis 6 Fr XB3.0 100cm Guide Catheter Santosh Sci Synergy MR [place] 3.50x38 Santosh Sci NC EMERGE MR 3.50x30 BALLOON Terumo .014 Runthrough Extra Floppy 180cm straight COMPLICATIONS No Complications PROCEDURE MEDICATIONS Versed 1 mg IV Fentanyl 50 mcg IV Fentanyl 50 mcg IV Fentanyl 50 mcg IV Oxygen: 2 L/min via nasal cannula Heparin given IA 08/29/2022 07:39:08 Heparin 1000 unit(s) IV 08/29/2022 08:03:53 Nitro 200 mcg IC 08/29/2022 08:29:40 Nitro 200 mcg IC 08/29/2022 08:29:40 Verapamil 2.5mg, Ntg 100mcgs, 3000 units of Heparin given IA 08/29/2022 07:39:08 SUMMARY OF HEMODYNAMIC DATA Time AIR REST ECG 07:18:32 AO 126/69 (98) SA 07:40:05 LV 148/4, 20 07:46:59 LV 142/6, 18 07:47:07 LV 130/9, 22 07:47:33 LV 129/9, 21 07:47:42 LVp 130/10, 21 07:47:45 AOp 134/47 (91) 07:47:52 Signed By Linette Chen MD On 08/29/2022 09:43:40 Linette Chen MD
[2022-08-29 10:15] LABS: Hemoglobin A1c 8.5 % (3.8-5.6)
[2022-08-29] MEDS: Insulin Lispro 100 UNIT/ML INSULN.PEN 15 UNIT SC (10:58)
[2022-08-29] MEDS: Insulin Lispro 100 UNIT/ML INSULN.PEN SC ×2 (10:59→21:06)
--- NOTE | 2022-08-29 11:04 | EKG12_ITS ---
Test Reason : Blood Pressure : / mmHG Vent. Rate : 060 BPM Atrial Rate : 060 BPM P-R Int : 208 ms QRS Dur : 088 ms QT Int : 478 ms P-R-T Axes : 013 133 133 degrees QTc Int : 478 ms Normal sinus rhythm Indeterminate axis Inferior infarct (cited on or before 28-AUG-2022) Cannot rule out Anterior infarct , age undetermined ST & T wave abnormality, consider lateral ischemia Abnormal ECG When compared with ECG of 29-AUG-2022 05:54, No significant change was found Confirmed by TINA JUAREZ, DANIEL ([id number]), rewrite editor OPAL GUERRERO ([id number]) on 09/05/2022 11:42:39 AM Referred By: Sedrick Confirmed By:DANIEL WILDER MD
--- NOTE | 2022-08-29 11:55 | CASEMGMT ---
RN CM Face to Face with patient for initial transition planning/care coordination assessment. RN CM introduced self and role at [facility]. Patient lying in bed, alert and oriented, mother and girlfriend. Patient willing to participate in assessment and is able to answer all questions appropriately. Care providers, pharmacy, and demographics verified. Patient wishes to discharge home, denies need for home health at this time. Patient states he has no further needs or concerns at this time. CM to follow for discharge planning needs that may arise. PCP: Patti Specialists: Robles Conte Preferred [facility]acy: [facility] Insurance: [employer] Prescription Benefit: yes Living Will/HPOA: none LNOK: mother Living Arrangements: Patient lives with mother in a mobile home iwth 5 steps and railing to enter the home. Patient states he is independent at home. Transportation: self, mother DME/HHC: Patient states he has glucometer, insulin, and all supplies. Patient denies previous HHC or SNF. Disposition Plan: Shayla ORNELSA, RN, CM
[2022-08-29 12:20] LABS: Bedside Glucose 203 mg/dL (74-106)
[2022-08-29 16:31] LABS: Bedside Glucose 129 mg/dL (74-106)
[2022-08-29] MEDS: Atorvastatin Calcium 40 MG Tablet PO (21:00)
[2022-08-29 21:20] LABS: Bedside Glucose 192 mg/dL (74-106)
[2022-08-30 03:00] VITALS: PULSE 57
[2022-08-30 04:51] VITALS: BP 132/81; PULSE 59; RESP 18; TEMP 36.4; O2SAT 97
[2022-08-30] MEDS: Levothyroxine 25 MCG TABLET PO (04:53)
[2022-08-30 06:02] LABS: Hematocrit 43.6 % (40-54); Hemoglobin 14.7 g/dL (13.0-16.5); Mean Corp Hgb Conc 33.7 g/dL (32-36); Mean Corpuscular Hgb 30.7 pg (27.0-32.0); Mean Platelet Vol. 11.4 fl (6.2-12.0); Platelet Count 216 K/mm3 (150-450); RBC Distribution Width CV 13.4 % (11.6-14.6); RBC Distribution Width SD 45.1 fl (35.1-43.9); Red Blood Count 4.79 M/mm3 (4.6-6.2)
[2022-08-30 06:47] LABS: ALB/GLOB Ratio 0.9 RATIO (0.9-2.4); AST(SGOT) 29 U/L (15-37); Alanine Aminotransfer ALT/SGPT 31 U/L (16-61); Albumin, Serum 3.2 g/dL (3.2-5.0); Alkaline Phosphatase 120 U/L (45-117); Anion Gap 6 (5-15); BUN 13 mg/dL (7-18); BUN/Creat Ratio 16.4 RATIO (10-20); Calcium,Total 8.9 mg/dL (8.5-10.1); Chloride 108 mmol/L (98-107); EST Glomerular Filtration Rate 111 mL/min (>60); Est Glom Filt Rate - Afr Amer 134 mL/min (>60); Estimated Creatinine Clearance 125.29 ml/min; Globulin 3.7 g/dL (2.2-4.2); Glucose 139 mg/dL (74-106); Protein, Total 6.9 g/dL (6.4-8.2); Sodium Level 139 mmol/L (136-145)
[2022-08-30 07:00] VITALS: PULSE 52
[2022-08-30 08:00] VITALS: BP 126/82; PULSE 60; RESP 14; TEMP 36.4; O2SAT 97
[2022-08-30] MEDS: Aspirin E.C. 81 MG Tablet PO (08:03)
[2022-08-30] MEDS: Pantoprazole Sodium 20 MG Tablet PO (08:04)
[2022-08-30] MEDS: TICAGRELOR 90 MG TABLET PO (08:04)
[2022-08-30] MEDS: Isosorbide Mononitrate 30 MG Tablet PO (08:04)
[2022-08-30 08:05] VITALS: PULSE 60
[2022-08-30] MEDS: Lisinopril 20 MG Tablet PO (08:05)
[2022-08-30] MEDS: Metoprolol(XL)Succ 25 MG Tablet PO (08:05)
[2022-08-30] MEDS: Insulin Glargine-YFGN 100 UNIT/ML Pen 33 UNIT SC (08:07)
--- NOTE | 2022-08-30 08:18 | PN.CARD_ITS ---
Subjective Subjective Patient seen and evaluated and appears to be doing well. Objective Data Vital Signs: Vital Signs Temp Pulse Resp BP Pulse Ox O2 Del Method O2 Flow Rate 97.5 F L 60 18 132/81 H 97 Room Air 2 08/30/22 04:51 08/30/22 08:05 08/30/22 04:51 08/30/22 04:51 08/30/22 04:51 08/30/22 04:52 08/28/22 23:33 Oxygen Flow Rate (L/min) 2 Oxygen Delivery Method Room Air Weight: 276 lb 10.882 oz Body Mass Index (BMI) 37.4 Intake & Output: Intake and Output for Last 24 Hours 08/28/22 08/29/22 08/30/22 23:59 23:59 23:59 Intake Total 1804.1 / 1804.1 2381.1 / 2381.1 50 / 50 Balance 1804.1 / 1804.1 2381.1 / 2381.1 50 / 50 Lab / Micro Data Result Diagrams: 08/30/22 04:59 08/30/22 04:59 Labs: Laboratory Results - last 24 hr 08/29/22 01:40: Hemoglobin A1c 8.5 H 08/29/22 10:57: POC Glucose 203 H 08/29/22 16:05: POC Glucose 129 H 08/29/22 20:57: POC Glucose 192 H 08/30/22 04:59: WBC 12.0 H, RBC 4.79, Hgb 14.7, Hct 43.6, MCV 91.0, MCH 30.7, MCHC 33.7, RDW Std Deviation 45.1 H, RDW Coeff of Elias 13.4, Plt Count 216, MPV 11.4 08/30/22 04:59: Sodium 139, Potassium 4.0, Chloride 108 H, Carbon Dioxide 25.0, Anion Gap 6, BUN 13, Creatinine 0.80, Estim Creat Clear Calc 125.29, Est GFR (MDRD) Af Amer 134, Est GFR (MDRD) Non-Af 111, BUN/Creatinine Ratio 16.4, Glucose 139 H, Calcium 8.9, Total Bilirubin 0.60, AST 29, ALT 31, Alkaline Phosphatase 120 H, Total Protein 6.9, Albumin 3.2, Globulin 3.7, Albumin/Globu joyce Ratio 0.9 Cardiology Labs/Tests 08/29/22 01:40: Hemoglobin A1c 8.5 H 08/30/22 04:59: WBC 12.0 H, RBC 4.79, Hgb 14.7, Hct 43.6, MCV 91.0, MCH 30.7, MCHC 33.7, Plt Count 216, MPV 11.4 08/30/22 04:59: Sodium 139, Potassium 4.0, Chloride 108 H, Carbon Dioxide 25.0, Anion Gap 6, BUN 13, Creatinine 0.80, Est GFR (MDRD) Af Amer 134, Est GFR (MDRD) Non-Af 111, BUN/Creatinine Ratio 16.4, Glucose 139 H, Calcium 8.9, Total Bilirubin 0.60 Rhythm: EKG: ECHO: Stress Test: Cardiac Cath: PCI: CT Surgery: Holter monitor: EPS: PPM: CXR: Chest CT Scan: Physical Exam Const alert, oriented x3 and no apparent distress General Appearance: cooperative HEENT hearing grossly normal bilaterally Head and Scalp: atraumatic Eyes EOMs intact bilaterally Neck General: normal visual inspection Chest inspection of chest normal and palpation of chest normal Resp normal respiratory effort Auscultation: clear to auscultation bilaterally Cardio regular rate, regular rhythm, S1 normal heart sound and S2 normal heart sound Jugular Venous Distention: JVD GI normal to inspection, nondistended, normoactive bowel sounds Extremity normal capillary refill and no pedal edema Peripheral Pulses: Yes pulses 2+ throughout and femoral pulses present Skin no rashes or lesions noted Neuro oriented x3 and CN's II-XII intact bilaterally Psych Appearance: grossly normal and appropriate Assessment & Plan Assessment/Plan (1) Non-ST elevation [place] (NSTEMI): PLAN: Patient presents with a non-ST elevation myocardial infarction. He underwent a cardiac catheterization today which demonstrated a subtotal occluded LAD as well as a high-grade circumflex artery stenosis. His left ventricular systolic function is fairly well-preserved. He says that he has been compliant with his medications. Based on the above angiographic findings he underwent PCI to the LAD as well as the circumflex artery system successfully. I would recommend that for better compliance we will switch him to clopidogrel daily. (2) History of coronary artery stent placement: PLAN: He does have previous stenting placed in the LAD distribution as well as the left circumflex artery distribution. Angiogram results as noted above. (3) Essential hypertension: PLAN: His blood pressure is under good control at this particular time I would not recommend we make any major changes. (4) Hyperlipidemia: QUALIFIERS: Hyperlipidemia type: mixed hyperlipidemia Qualified Code(s): E78.2 - Mixed hyperlipidemia PLAN: He does have a history of hyperlipidemia. He is high risk and would benefit from high intensity statin. Thank you for allowing me to participate in the care of your patient. Please don't hesitate to call if any issues arise.
--- NOTE | 2022-08-30 09:32 | NURSING ---
pt refusing morning sliding scale and sched humalog d/t being told he is being discharged
--- NOTE | 2022-08-30 09:34 | PCM.DC ---
Discharge Instructions Diet Discharge Diet: 1800 Calorie Control Diet and 2000 mg Sodium Diet Activity Discharge Activity: Return to Normal Activity and May Not Drive Dressing / Incision Call your doctor if you observe: Fever of 101 or Higher, Coldness, Increased Pain, Numbness or Tingling, Change in Color, Inability to urinate, Inability to have a bowel movement, Shortness of breath, Dizziness, Fainting spells, Swelling in the ankles, Chest pain, Prolonged hiccupping, Increased palpitations (irregular heartbeat), Calf discomfort and Uncontrolled pain Follow Up Care Test Results: Test results from this visit will be discussed in further detail at your follow-up appointment, if applicable. Discharge Plan Admission Admit Date/Time: 08/28/22 09:47 Primary Reason for Your Visit: Non-STEMI status post PCI Attending Provider: Nile Dubose Primary Care Provider: Darinel Armstrong Consulting Providers: Denny Adams Discharge Orders/Prescriptions Prescriptions: New clopidogrel [Plavix] 75 mg tablet 75 mg PO DAILY Qty: 30 3RF Rx Instructions: Plavix 150 mg 2 tablets on 08/31 and then 75 mg daily to continue Continued levothyroxine 25 mcg tablet 25 tablet PO DAILY (DME) pen needle, diabetic 31 gauge x 15/64 needle See Rx Instructions .ROUTE .MEDSUPPLY Qty: 50 Rx Instructions: As directed (DME) 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 meter [OneTouch Verio Flex meter] [facility] [place] See Rx Instructions .ROUTE .MEDSUPPLY Qty: 1 0RF Rx Instructions: As directed (DME) OneTouch Verio test strips Strip See Rx Instructions .ROUTE .MEDSUPPLY Qty: 450 3RF Rx Instructions: 5x/day (DME) FreeStyle Lite Strips Strip See Rx Instructions .ROUTE .MEDSUPPLY Qty: 100 6RF Rx Instructions: 4x/day (DME) FreeStyle Ximena 2 Sensor Kit See Rx Instructions .Route Qty: 6 1RF Rx Instructions: 1 sensor q 14 days nitroglycerin 0.4 mg Tablet, Sublingual 0.4 mg sublingual Q5M PRN (Reason: Cardiac/Chest Pain) Qty: 30 0RF albuterol sulfate [Ventolin HFA] 1 INHALER inhaler 2 puff inhalation Q4H PRN PRN (Reason: Wheezing) Qty: 1 0RF Rx Instructions: dispense with spacer please atorvastatin 40 mg tablet 40 mg PO DAILY lisinopril 20 mg tablet 20 mg PO DAILY isosorbide mononitrate 30 mg tablet extended release 24 hr 30 mg PO DAILY Rx Instructions: Hold for SBP less than 110 mmHg omeprazole 20 mg capsule,delayed release(DR/EC) 20 mg PO DAILY aspirin 81 mg tablet,chewable 81 mg PO BREAKFAST metoprolol succinate 25 mg tablet extended release 24 hr 25 mg PO DAILY insulin aspart U-100 100 unit/mL (3 mL) insulin pen 15 unit subcut TIDCM insulin glargine 100 unit/mL (3 mL) insulin pen 26 unit subcut DAILY Trulicity 0.75 mg/0.5 mL pen injector 0.75 mg subcut TU (DME) pen needle, diabetic 31 gauge x 1/4 needle See Rx Instructions .ROUTE .MEDSUPPLY Qty: 120 6RF Rx Instructions: 4x/day Discontinued albuterol sulfate 90 mcg/actuation HFA aerosol inhaler 90 mcg INHALATION PRN PRN (Reason: Wheezing) Label Comments: INHALE 2 PUFFS BY MOUTH EVERY 4 HOURS NEEDED Brilinta 90 mg tablet 90 mg PO BID Referrals / Follow Up: Eduardo Harrison MD [Med Staff - Active Staff] - Within 2 Weeks Darinel Armstrong MD [Primary Care Provider] - Within 2 Weeks Disposition Disposition (needs filled in before D/C Order can be placed): Home, Self Care
--- NOTE | 2022-08-30 09:34 | PCM.DC.SUM ---
Providers Date of Admission: 08/28/22 Date of Discharge: 08/30/22 Primary Care Physician: Dr. Darinel Armstrong MD Consultations 08/28/22 11:22 Consult: Cardiology Routine Consulting Provider: Denny Adams Reason for Consult: nstemi EMERGENT Consult: No MD Notified: Yes Date Notified: 08/28/22 Time Notified: 09:55 Method of Notification: ED Physician Initiated Reason For Visit: chest pain Diagnosis Discharge Diagnosis (1) Non-ST elevation [place] (NSTEMI): Status: Acute Code(s): I21.4 - Non-ST elevation (NSTEMI) myocardial infarction (2) History of coronary artery stent placement: Status: Chronic Code(s): Z95.5 - Presence of coronary angioplasty implant and graft (3) Essential hypertension: Status: Chronic Code(s): I10 - Essential (primary) hypertension (4) Hyperlipidemia: Status: Chronic Code(s): E78.5 - Hyperlipidemia, unspecified Qualifiers: Hyperlipidemia type: mixed hyperlipidemia Qualified Code(s): E78.2 - Mixed hyperlipidemia Medications at Discharge Home Medications nitroglycerin 0.4 mg sublingual tablet 0.4 mg sublingual Q5M PRN Cardiac/Chest Pain #30 tabs 04/25/21 levothyroxine 25 mcg tablet 25 tablet PO DAILY THYROID 07/20/21 pen needle, diabetic 31 gauge x 15/64 #50 ea 07/20/21 OneTouch Verio Flex meter (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 meter) #1 ea 09/04/21 OneTouch Verio test strips (blood sugar diagnostic) #450 ea 09/04/21 FreeStyle Lite Strips (blood sugar diagnostic) #100 ea 09/06/21 albuterol sulfate 90 mcg/actuation aerosol inhaler (Ventolin HFA) 2 puff inhalation Q4H PRN PRN Wheezing ##1 12/20/21 pen needle, diabetic 31 gauge x 1/4 #120 ea 01/15/22 flash glucose sensor (FreeStyle Ximena 2 Sensor kit) #6 ea 07/16/22 aspirin 81 mg chewable tablet 81 mg PO BREAKFAST HEART HEALTH 08/28/22 atorvastatin 40 mg tablet 40 mg PO DAILY CHOLESTEROL 08/28/22 dulaglutide 0.75 mg/0.5 mL subcutaneous pen injector (Trulicity) 0.75 mg subcut TU DIABETES 08/28/22 insulin aspart U-100 100 unit/mL (3 mL) subcutaneous pen 15 unit subcut TIDCM DIABETES 08/28/22 insulin glargine 100 unit/mL (3 mL) subcutaneous pen 26 unit subcut DAILY DIABETES 08/28/22 isosorbide mononitrate 30 mg tablet,extended release 24 hr 30 mg PO DAILY ANGINA 08/28/22 lisinopril 20 mg tablet 20 mg PO DAILY BLOOD PRESSURE 08/28/22 metoprolol succinate 25 mg tablet,extended release 24 hr 25 mg PO DAILY BLOOD PRESSURE 08/28/22 omeprazole 20 mg capsule,delayed release 20 mg PO DAILY GERD 08/28/22 clopidogrel 75 mg tablet (Plavix) 75 mg PO DAILY #30 tabs 08/30/22 Hospital Course Summary of Care Provided Hospital Course: This is 47-year-old gentleman admitted with chest pain for for last 2 days and high troponin consistent with non-STEMI. ?1.? Non-STEMI due to blocked previous stent mid LAD and mid circumflex: Patient is admitted in PCU. Serial troponin shows high output trending, 159, 926 and 5097. Pay Station Department Manager is consulted from ED. Patient currently on IV heparin drip. Continue aspirin and Brilinta. Repeat EKG does not show acute ST-T changes. Fasting profile prior TSH ordered for tomorrow a.m. patient not candidate for beta-abraham as heart rate in 40s to 50s. At home, the patient on metoprolol succinate 25 mg daily but on hold due to bradycardia. 08/29: Previous mid LAD subtotally occluded. Mid circumflex previously stented vessel 95% stenotic lesion. RCA moderate 50%. EF 50% by LV gram.PCI and stents were inserted. Final profile shows LDL 56, HDL 29. Total cholesterol 102. TSH 2.07. 08/30: Overall patient doing good, no chest pain or shortness of breath. Discussed with the sterile technician and agreed for discharge. Patient discharged on Plavix 150 mg on 08/31 and then 75 mg to continue from 09/01 onwards. Discontinue Brilinta. 2. Coronary artery disease s/p cardiac stents: Patient cardiac cath on 04/24 showed ostial LAD 80%, mid LAD subtotally occluded with distal vessel filling, mid circumflex 75% stenosis, proximal RCA 60%? EF 50% with anterior hypokinesis.? Patient had PCI of LAD and mid circumflex.? Continue aspirin, statin and lisinopril, isosorbide mononitrate.? 08/30: Rest of his medications to be continued 2.? Diabetes mellitus type 2: Patient is states he takes insulin at home. Glucose 163. In March 2021, A1c 8.8.? 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 Home dose insulin regimen. Accu-Cheks before meals and at bedtime and cover with Humalog sliding scale. 08/29: A1c 8.5% showing uncontrolled hyperglycemia in last 3 months. Lantus and Premeal Humalog dose increased 08/30: Glucose is controlled. Advised follow with PCP for better control of glucose. 4. Other chronic comorbidities include GERD, morbid obesity, BMI 37.5 kg/m?: Patient on Protonix, fluoxetine. Weight loss counseling done 5.? VTE prophylaxis: Patient on heparin drip Discharge medication reconciliation done. Discharge follow-up instructions completed. Discharge process discussed with the patient and all questions were answered to patient's satisfaction. Total time spent, exact 35 minutes on discharge meds reconciliation, examination, coordination of care with nurses and ancillary staff, review of imaging and blood test and discussion with the patient on follow-up instructions. Living will/advanced directive/end of life care: Patient does not have living will or advanced directive. His girlfriend is at the bedside is next to kin after discussion of benefits/risks procedures involved with full code, DNR CC arrest and DNR CC, the patient opted for full code. Patient does want artificial life support including intubation, tube feed, ventilator and/chest compression, central venous catheter, vasopressor and DC shock if needed Laboratory Results 08/29/22 20:57: POC Glucose 192 H 08/30/22 04:59: WBC 12.0 H, RBC 4.79, Hgb 14.7, Hct 43.6, MCV 91.0, MCH 30.7, MCHC 33.7, RDW Std Deviation 45.1 H, RDW Coeff of Elias 13.4, Plt Count 216, MPV 11.4 08/30/22 04:59: Sodium 139, Potassium 4.0, Chloride 108 H, Carbon Dioxide 25.0, Anion Gap 6, BUN 13, Creatinine 0.80, Estim Creat Clear Calc 125.29, Est GFR (MDRD) Af Amer 134, Est GFR (MDRD) Non-Af 111, BUN/Creatinine Ratio 16.4, Glucose 139 H, Calcium 8.9, Total Bilirubin 0.60, AST 29, ALT 31, Alkaline Phosphatase 120 H, Total Protein 6.9, Albumin 3.2, Globulin 3.7, Albumin/Globulin Ratio 0.9 08/30/22 08:07: POC Glucose 142 H Physical Exam Narrative Seen and examined on the day of discharge. Physical exam General: Alert, Oriented x3, Cooperative, BMI 37.5 kg/m? HEENT: Atraumatic, PERRLA, EOMI, Normocephalic Oral: Oral mucosa moist. No Gingival or Mucosal Lesions/ Ulcerations Neck: Supple, No JVD, Negative Carotid Bruits Lungs: Air entry diminished in bilateral lung bases. No crepitation/rhonchi Cardiovascular: Sinus bradycardia, Normal S1, Normal S2, No murmurs Abdomen: Bowel Sounds Present, Soft, Non Tender, Non-Distended : No renal angle tenderness. No suprapubic tenderness. Extremities: Right radial artery cath approach, no hematoma/bruise. No pedal edema, Capillary Refill Less than 3 Seconds Skin: No rashes, No breakdown Musculoskeletal: No Tenderness to Palpation of Joints or Extremities. Muscle strength 5/5 at major joints. Neurological: Cranial nerves II-XII grossly intact, DTR 2+/4 and Symmetrical, Neuro grossly intact Psych/Mental Status: Normal Affect, Appropriate. Weight / BMI Weight Weight: 276 lb 10.882 oz Body Mass Index (BMI) 37.4 ABG / Lab / Microbiology Data Result Diagrams: 08/30/22 04:59 08/30/22 04:59 Laboratory: Laboratory Results - last 24 hr 08/29/22 01:40: Hemoglobin A1c 8.5 H 08/29/22 10:57: POC Glucose 203 H 08/29/22 16:05: POC Glucose 129 H 08/29/22 20:57: POC Glucose 192 H 08/30/22 04:59: WBC 12.0 H, RBC 4.79, Hgb 14.7, Hct 43.6, MCV 91.0, MCH 30.7, MCHC 33.7, RDW Std Deviation 45.1 H, RDW Coeff of Elias 13.4, Plt Count 216, MPV 11.4 08/30/22 04:59: Sodium 139, Potassium 4.0, Chloride 108 H, Carbon Dioxide 25.0, Anion Gap 6, BUN 13, Creatinine 0.80, Estim Creat Clear Calc 125.29, Est GFR (MDRD) Af Amer 134, Est GFR (MDRD) Non-Af 111, BUN/Creatinine Ratio 16.4, Glucose 139 H, Calcium 8.9, Total Bilirubin 0.60, AST 29, ALT 31, Alkaline Phosphatase 120 H, Total Protein 6.9, Albumin 3.2, Globulin 3.7, Albumin/Globulin Ratio 0.9 Meaningful Use Info Meaningful Use Diagnoses (Choose all that apply): AMI AMI/Post PCI/Angioplasty Aspirin given w/in 24hrs of arrival?: Yes ASA at discharge?: Yes Statins at discharge?: Yes David/ARB at discharge?: Yes Beta Abraham at discharge?: Yes Done w/ Acute [place] measure.: Yes Discharge Plan Admission Admit Date/Time: 08/28/22 09:47 Primary Reason for Your Visit: Non-STEMI status post PCI Attending Provider: Nile Dubose Primary Care Provider: Darinel Armstrong Consulting Providers: Denny Adams Discharge Orders/Prescriptions Prescriptions: New clopidogrel [Plavix] 75 mg tablet 75 mg PO DAILY Qty: 30 3RF Rx Instructions: Plavix 150 mg 2 tablets on 08/31 and then 75 mg daily to continue Continued levothyroxine 25 mcg tablet 25 tablet PO DAILY (DME) pen needle, diabetic 31 gauge x 15/64 needle See Rx Instructions .ROUTE .MEDSUPPLY Qty: 50 Rx Instructions: As directed (DME) 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 meter [OneTouch Verio Flex meter] [facility] [place] See Rx Instructions .ROUTE .MEDSUPPLY Qty: 1 0RF Rx Instructions: As directed (DME) OneTouch Verio test strips Strip See Rx Instructions .ROUTE .MEDSUPPLY Qty: 450 3RF Rx Instructions: 5x/day (DME) FreeStyle Lite Strips Strip See Rx Instructions .ROUTE .MEDSUPPLY Qty: 100 6RF Rx Instructions: 4x/day (DME) FreeStyle Ximena 2 Sensor Kit See Rx Instructions .Route Qty: 6 1RF Rx Instructions: 1 sensor q 14 days nitroglycerin 0.4 mg Tablet, Sublingual 0.4 mg sublingual Q5M PRN (Reason: Cardiac/Chest Pain) Qty: 30 0RF albuterol sulfate [Ventolin HFA] 1 INHALER inhaler 2 puff inhalation Q4H PRN PRN (Reason: Wheezing) Qty: 1 0RF Rx Instructions: dispense with spacer please atorvastatin 40 mg tablet 40 mg PO DAILY lisinopril 20 mg tablet 20 mg PO DAILY isosorbide mononitrate 30 mg tablet extended release 24 hr 30 mg PO DAILY Rx Instructions: Hold for SBP less than 110 mmHg omeprazole 20 mg capsule,delayed release(DR/EC) 20 mg PO DAILY aspirin 81 mg tablet,chewable 81 mg PO BREAKFAST metoprolol succinate 25 mg tablet extended release 24 hr 25 mg PO DAILY insulin aspart U-100 100 unit/mL (3 mL) insulin pen 15 unit subcut TIDCM insulin glargine 100 unit/mL (3 mL) insulin pen 26 unit subcut DAILY Trulicity 0.75 mg/0.5 mL pen injector 0.75 mg subcut TU (DME) pen needle, diabetic 31 gauge x 1/4 needle See Rx Instructions .ROUTE .MEDSUPPLY Qty: 120 6RF Rx Instructions: 4x/day Discontinued albuterol sulfate 90 mcg/actuation HFA aerosol inhaler 90 mcg INHALATION PRN PRN (Reason: Wheezing) Label Comments: INHALE 2 PUFFS BY MOUTH EVERY 4 HOURS NEEDED Brilinta 90 mg tablet 90 mg PO BID Referrals / Follow Up: Darinel Armstrong MD [Primary Care Provider] - 09/05/22 8:00 am Ranjit Lopez NP, [employer] [Med Staff - Adv Practice Prof] - 09/07/22 1:30 pm Disposition Disposition (needs filled in before D/C Order can be placed): Home, Self Care Charges/Coding Visit Charges Inpatient E&M: 47324 Disch Hosp
--- NOTE | 2022-08-30 10:24 | CASEMGMT ---
Pt was on Brilinta was previously. Pt states no concerns with going home at time of discharge and is anxious to leave. Arturo VILLALOBOS CM
[2022-08-30 11:55] LABS: Bedside Glucose 142 mg/dL (74-106)
== END 2022-08-30 10:51 | disposition home or self-care (01) | DRG 175 ==
LOC: ED 09:37 → PCU 10:18
PROVIDERS: Internal Medicine Cardiovascular Disease; Admitting Provider Internal Medicine; Emergency Provider Emergency Medicine; PCP Family Medicine; Visit Provider Internal Medicine
DX: T82.855A Stenosis of coronary artery stent, initial encounter (principal); I21.4 Non-ST elevation (NSTEMI) myocardial infarction; E11.65 Type 2 diabetes mellitus with hyperglycemia; I25.110 Atherosclerotic heart disease of native coronary artery with unstable angina pectoris; Z79.4 Long term (current) use of insulin; E66.01 Morbid (severe) obesity due to excess calories; E78.2 Mixed hyperlipidemia; I10 Essential (primary) hypertension; I25.2 Old myocardial infarction; Z79.82 Long term (current) use of aspirin; Z68.37 Body mass index [BMI] 37.0-37.9, adult; Z95.5 Presence of coronary angioplasty implant and graft; Z79.02 Long term (current) use of antithrombotics/antiplatelets; Y83.8 Other surgical procedures as the cause of abnormal reaction of the patient, or of later complication, without mention of misadventure at the time of the procedure
CPT/HCPCS: 36415; 71045; 80048; 80053; 80061; 82962; 83036; 83735; 84100; 84443; 84484; 85025; 85027; 85379; 85610; 85730; 92928; 93005; 93458; 97802; 99152; 99153; 99285; J7030; J7040; Q9967; C1725; C1769; C1874; C1887; C1894; C9600; J2405

== ENCOUNTER → 2022-09-17 | Outpatient (CLI) | payer MEDICAID, SELFPAY ==
--- NOTE | 2022-09-17 13:32 | CR.HP_ITS ---
CR - History & Physical - General Arrival date:: 09/17/22 Arrival time:: 13:33 Date of Referral:: 09/12/22 Date of CR Evaluation:: 09/17/22 Referring Physician: Dr. Eduardo Harrison Primary Diagnosis: NSTEMI, PCI w/coronary stenting - History of Present Cardiac Event Onset Date: Enter Onset Date of cardiac illnesses in Comment field below Acute Myocardial Infarction within 12 months:: Yes - 08/28/2022 PTCA or coronary stenting:: Yes - 08/28/2022 Type of Symptoms:: Squeezing chest pain since prior day, started out very intermittent but over the last hour prior to coming to the emergency room became more steady and harder. 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 Were there any complications?: none - Sleep Disorder Evaluation Hx of Sleep Apnea: No Do you snore loudly (louder than talking or can be heard through closed doors)?: Yes Do you often feel tired/ fatigued/ sleepy during daytime?: Yes Has anyone observed you stop breathing during sleep?: No History of Hypertension (for STOP score): Yes STOP Results: Positive - Medications Home Medications: Ambulatory Orders Medication Instructions Recorded nitroglycerin 0.4 mg sublingual 0.4 mg sublingual Q5M PRN 04/25/21 tablet Cardiac/Chest Pain #30 tabs levothyroxine 25 mcg tablet 25 tablet PO DAILY THYROID 07/20/21 pen needle, diabetic 31 gauge x #50 ea 07/20/21 15/64 OneTouch Verio Flex meter #1 ea 09/04/21 (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 meter) OneTouch Verio test strips (blood #450 ea 09/04/21 sugar diagnostic) FreeStyle Lite Strips (blood sugar #100 ea 09/06/21 diagnostic) albuterol sulfate 90 mcg/actuation 2 puff inhalation Q4H PRN PRN 12/20/21 aerosol inhaler (Ventolin HFA) Wheezing ##1 pen needle, diabetic 31 gauge x #120 ea 01/15/22 1/4 flash glucose sensor (FreeStyle #6 ea 07/16/22 Ximena 2 Sensor kit) aspirin 81 mg chewable tablet 81 mg PO BREAKFAST HE[facility] HE[facility] 08/28/22 atorvastatin 40 mg tablet 40 mg PO DAILY CHOLESTEROL 08/28/22 dulaglutide 0.75 mg/0.5 mL 0.75 mg subcut TU DIABETES 08/28/22 subcutaneous pen injector (Trulicity) insulin aspart U-100 100 unit/mL 15 unit subcut TIDCM DIABETES 08/28/22 (3 mL) subcutaneous pen insulin glargine 100 unit/mL (3 26 unit subcut DAILY DIABETES 08/28/22 mL) subcutaneous pen isosorbide mononitrate 30 mg 30 mg PO DAILY ANGINA 08/28/22 tablet,extended release 24 hr lisinopril 20 mg tablet 20 mg PO DAILY BLOOD PRESSURE 08/28/22 metoprolol succinate 25 mg 25 mg PO DAILY BLOOD PRESSURE 08/28/22 tablet,extended release 24 hr omeprazole 20 mg capsule,delayed 20 mg PO DAILY GERD 08/28/22 release clopidogrel 75 mg tablet (Plavix) 75 mg PO DAILY #30 tabs 08/30/22 - Allergies Allergies/Adverse Reactions: Allergies No Known Allergies Allergy (Verified 09/07/22 13:46) Advanced Directives - Advanced Directives Power of Mechanical Maintenance Supervisor: No Living Will: No Advance Directives Information Provided: Yes Advance Directives on File: No DNR Order?:: No - MOLST See MOLST form: No Past Medical History - Covid-19 Screening Fever: No Unexplained muscle aches: No Current respiratory symptoms: No Upper respiratory infections symptoms: No Gastro-intestinal symptoms: Yes - History of GERD Ety-Vfas-Bfcttn symptoms: No Has tested positive for COVID-19 in last 30 days: No Date of testin09/17/22 - Patient had initial J & J vaccine no Boosters Had contact w/person w/symptoms or Covid-19 (+) last 14 days: No Has High Risk Exposures ID'd by Health dept/Inf Control team: No 65 years or older:: No Lives in Assisted Living facility:: No Has a chronic lung disease or moderate to severe asthma:: No Has a serious heart condition:: No Immunocompromised:: No Severely obese (Body Mass Index of 40 or higher):: No Diabetic:: Yes Has chronic kidney disease undergoing dialysis:: No Has liver disease:: No - Past Medical Illness Medical History: Past Medical History (Last Reviewed 09/07/22 @ 13:49 by Joselin Fragoso) Anxiety F41.9 Atherosclerosis of coronary artery without angina pectoris I25.10 Bradycardia R00.1 Cataract H26.9 Depression F32.9 Diabetes E11.9 Diabetes mellitus type II, uncontrolled E11.65 Essential hypertension I10 Gastroesophageal reflux K21.9 History of anxiety Z86.59 History of non-ST elevation myocardial infarction (NSTEMI) Onset Date: 08/28/22 I25.2 04/21/2021, 08/28/2022 Hyperlipidemia E78.5 Hypothyroidism E03.9 Kidney stones N20.0 Obesity E66.9 Obesity E66.9 Substance abuse F19.10 - Past Surgical History Surgical History: Past Surgical History (Last Updated 09/12/22 @ 11:32 by Ragini Bernabe) History of coronary artery stent placement Onset Date: 08/28/22 Z95.5 PCI-[facility]-Mid LAD w/ 2.5 x 40 mm Orsiro Stent and [facility]-OM1 w/ 4.0 x 18 mm Orsiro Stent 04/24/21; [facility]-MAE-TDV-Mid LAD w/ 2.5 x 32 mm Synergy Stent and [facility]-ISR-Mid LCx into the OM1 w/ 3.5 x 38 mm Synergy Stent 08/29/22 History of coronary artery stent placement Onset Date: ~08/29/22 Z95.5 PCI-[facility]-Mid LAD w/ 2.5x32mm Synergy MR and [facility] Mid LCX into OM1 (ISR) w/ 3.5x38mm Synergy MR History of right coronary artery stent placement Onset Date: 08/28/22 Z95.5 Surgical History: no surgical history Social History - Smoking History Smoking Status: Former smoker Hx Tobacco Use: No Hx Smoking Exposure: No - Alcohol Use Alcohol Usage: Yes - very little - Substance Abuse Hx Substance Use: Yes - Use of Marijuana - Occupation Occupation (List type of work in comments):: Unemployed - Hobbies, Recreation, Social Activities Hobbies: Sports - [employer] fishing sports, Other Recreational Activities: I am able to engage in most, but not all activities Social Environment - Status Marital Status: - Current Living Arrangements Living Environment:: Spouse - Children How many children do you have?: 0 Do any of your children live nearby?: No - Safety Do you feel safe in your surroundings?: Yes - Assistance Do you need any assistance at home?: no Review of Systems - Review of Systems Hints: Right click = Denies ([place]). Left click = Reports ([place]) Review of Present Symptoms: Reports: Shortness of Breath with Exertion - a little bit, Angina - maybe a little bit, not related to any specific activity, Dizziness/Lightheadedness, Fatigue, Heart Arrhythmia/Irregularities - Hsitory of Bradycardia, Sleep - Normal. Denies: Shortness of Breath at Rest, Appetite - Normal - so & so, on Trulicty so takes his appetite away., Appetite - Special Diet, Sexual Changes - Pain Is Patient Pain Free?: Yes Pain Location: none, upper extremity - mostly shoulders very bad arthritis in both shoulders Risk Factor Assessment - Vital Signs Temperature: 97.3 F Respiratory Rate: 16 Pulse Ox: 96 Blood Pressure: 111/63 - mechanically taken - Pulse Pulse Rate: 54 - H/O Bradycardia Pulse Rhythm: Regular - Hypertension How long have you been treated?: 10 years On medication(s)?: Lisinopril 20mg Blood Pressure Sitting - Left Arm: 111/63 - Stress Stress: Work-related - lack of being able to work, Home/Family - Blood Cholesterol/Lipids Total Cholesterol (mg/dL) Goal = less than 200 mg/dL: 102 HDL Cholesterol (mg/dL) Goal = less than 40 mg/dL: 29 LDL Cholesterol (mg/dL) Goal = less than 70 mg/dL: 56 Triglycerides (mg/dL) Goal = less than 150 mg/dL: 84 - Diabetes Diabetic History: Type II, Medication Dependent, Insulin Dependent Nutrition Referral for Diabetes: Yes - Obesity Height: 6 ft Weight:: 280 lb Weight in Pounds: 280.0 lbs Weight Source: Estimated by Patient Body Mass Index (BMI): 38.0 Nutritional Referral for Obesity: Yes - Why Weight & Diabetic Education - Physical Inactivity Physical Inactivity: Reg Exercise 30 min/day - Risk Stratification Risk Guidelines: Lowest Risk: Risk Factor for Hypertension - 111/63, Highest Risk: Risk Factor for Dyslipidemia - Metobolic Syndrome, Risk Factor for Diabetes - A1c 8.5%, Glucose 139, Risk Factor for Obesity - BMI 38% Motivation - Motivation to Participate On a scale of 1 to 10, how prepared are you to commit to attending program?: 10 What do you see as barriers to successfully being able to complete the program?: maybe transportation What do you see as the benefits of succesfully completing the program? In other words, what do you hope to get out of participating in the program?: Healthier, feel better Are there issues you are dealing with that will interfere with completing the program?: no Do you have a spouse or signficant other, family or friends who will help support you to complete the program?: Yes
--- NOTE | 2022-09-17 13:33 | PCM.CR.ITP ---
Diagnosis - General Information Admitting Diagnosis: NSTEMI, PCI w/coronary stenting Secondary Diagnosis: DM Type II, Obesity >38, HTN, HLD Personal Learning Style:: Audio/Visual, Written Barriers to Learning: Vision Impairment - wears corrective lenses Gave educational material for:: Treating Heart Disease, Emotions & Heart Disease, Stress Management & Relaxation, Sleep Disorders & Heart Disease, How The Heart Works, What it means to have Heart Disease, How Coronary Artery Disease is Diagnosed, Heart Procedures, What Heart Medications Do, Risk Factors & Modifications, Living an Active Life, Nutrition - Education/Goals Individual Counseling: Initial Assessment: Abnormal Cholesterol Levels, High Blood Pressure, Overweight/Obesity - BMI 38, Diabetes, Metabolic Syndrome (as evidenced by 3 of 5 A-E below), A. Fasting Blood Sugar >100 - 139, B. Waist Circumference >35/Females >40/Males, Hypertension, Low HDL <40/Males or <50/Females - HDL 29, Family History of Heart Disease (under 65 years) Cardiac Rehabilitation Goals: 1. Maintain the individual as the primary focus of care. 2. To improve the patient's quality of life. 3. Identification of cardiac risk factors and provide cardiac risk factor management. 4. Enhance the psychosocial status of the patient. 5. Reconditioning enough to allow the patient to resume customary activities. 6. Control symptoms of cardiac disease Personal Goals: Initial Assessment: Improve management of stress and emotions, Improve energy level, Improve diet and eating habits (eat healthier), Control risk factors (learn risk factor modification) Scale for measuring improvement of personal goals: Enter appropriate number in Comments. 2 = Unchanged. 3 = Slightly Better. 4 = Moderate Improvement. 5 = Met my Goal - Diagnosis & Disease Process Outcomes/Goals: Pt IDs own risk factors & lifestyle modifications by Session 10, Verbalizes symptoms of angina & response by session 3., Pt independently manages Plan/Interventions: Assist Pt to ID & engage in lifestyle modification to reduce CVD risk, Instruct on individual risk factors, Review symptoms of angina & emergency actions, Review secondary diagnosis & identify educational needs. - Safety Referral to Physical Therapy: No Referral to [facility] Case Management: No Fall Risk Assessed:: Yes Assistive Devices:: None Exercise - Initial Assessment - Visit Date of Eval: 09/17/22 Session #:: 0 - Pre-Cardiac Rehab evaluation Mets: Pre-: >7 METS for 30 minutes by discharge - Physician Prescribed Exercise Modalities: Treadmill, Airdyne, NuStep Intensity: 60-80% of age predicted maximum heart rate reserve Duration: 30 - 45 minutes Current METSs:: 4.0 Target Heart Rate:: 113-147 Resting Blood Pressure: 111/63 EKG Type: Sinus Bradycardia w T Wave abnormality - Outcomes & Goals Goals:: Verbalizes understanding of THR, RPE & goal METS by session 6, Documents in home exercise log/reports 30 min aerobic 5 day/wk by DC, Demonstrates accurate pulse taking by DC - Physical Activity Home Exercise Physical Activity - Home Exercise: Safe Exercise, Warm-up, Self-monitoring, Cool-Down, Home Exercise > 30 min Daily, Sitting Time <3 hours/daily - Outcomes & Goals Outcomes/Goals: Demonstrates correct Warm-up/exercise Cool-Down (S3) if = 2.5 METs, Verbalizes symptoms of exercise intolerance by Session 3 (S3), Demonstrate safe equipment use (S3) & follows exercise prescrition (6) - Intervention & Plan Plan/Intervention: Instruct warm-up & cool-down if exercising at > 2 METs, Instruct on symptoms of exercise intolerance & actions to take, Instruct & monitor on saf, Assess intial functional capacity & safety risk Nutrition - Initial Assessment - Program Goals Nutrition Program Goals: LDL <100 optimal. 100 - 129 Near optimal. 130 - 159 Borderline High. 160 - 189 High. Total Cholesterol <200 desirable. 200 - 239 Borderline High. >/= 240 High. HDL < 40 Low >/=60 High. Triglycerides <150 desirable. <199 optimal. VlDL 5 - 40. HgbA1C <7%. BMI <25 Patient has diagnosis of Hyperlipidemia (ICD E78)?: Yes - Visit Date of Assessment:: 09/17/22 Session #:: 0 - Pre-cardiac rehab evaluation - Cholesterol/Lipids (Other Core Measures) Triglycerides (mg/dL): 84 Total Cholesterol (mg/dL): 102 LDL Cholesterol (mg/dL): 56 HDL Cholesterol (mg/dL): 29 Lipid Medication: Atorvastatin 40mg Determine presence & major risk factors that modify LDL goal: Hypertension or hypertensive medication, Low HDL cholesterol <40 mg/dL*, Family history of premature CHD in Male < 55 years: female <65 yearsFa, Age men > 45 years; women >/= 55 years Outcomes/Goals: Pt IDs own risk factors & lifestyle modifications by Session 10, Verbalizes symptoms of angina & response by session 3., Pt independently manages Intervention/Plan: Instruct on personal lipid levels & lipid goals/NCEP guidelines, Instruct on cholesterol Referral to dietitian:: Yes - Medical Nutrition - Diabetes (Other Core Measures) Diabetes Type: Diagnosis Type II ICD-10 E11 Fasting blood glucose:: 139 Hgb A1C (4.2 - 6.3): 8.5 Insulin dependent injection/pump?: Yes Non-Insulin Dependent?: Yes Do you monitor your blood sugar at home?: Yes Referral to Diabetic Clinic:: Yes Outcomes/Goals:: Able to state symptoms of, Able to state, Able to state Intervention/Plan:: Instruct on, Refer to, Instruct on - Weight Mgt (Other Care) Not Applicable: No Height: 6 ft Weight:: 280 lb BMI: 38.0 Diagnosis Overweight/Obesity BMI> 30% ICD-10 E66: Yes Diagnosis High BMI/Morbid Obesity BMI> 35% ICD-10 Z68: Yes Outcomes/Goals: Pt sets, maintains & shows weight loss goal & trend during rehab Intervention/Plan: Instruct on ideal BMI & set weight loss goal w/patient, Assist pt to ID & incorporate diet changes for weight loss by S9, Refer to Structured Weight Loss program as appropriate, Encourage goal of using 250-300dcal per session for weight loss - Healthy Eating Habits Will attend diet classes:: Yes Outcomes/Goals:: Consume diet rich in vegs,fruits,whole grain/high fiber,fish,lean meat, Limit sat/trans fats,cholesterol & added salts & sugars Intervention/Plan:: Assess current eating habits - Education Gave educational materials for:: Signs & symptoms of hypoglycemia, Signs & symptoms of hyperglycemia, Relate diabetes to coronary artery disease, Healthy eating Nutrition - 30-Day Assessment Nutrition - 60-Day Assessment Nutrition - 90-Day Assessment Nutrition - Final Assessment Core - Initial Assessment - Visit Date of Eval: 09/17/22 Session #:: 0 - Pre-cardiac rehab evaluation - Medication Compliance Preventative Medication(s):: Aspirin, Clopidogrel/P2Y12 inhibit, Statin/lipid, Beta flo H/O mental health issues: depression, anxiety, or addiction?: No Doesn?t believe in the benefits of treatment?: No Believes medications are unnecessary or harmful?: No Has a concern about medication side effects?: No Expresses concern over the cost of medications?: No Outcomes/Goals: Verbalizes medications,desired effect & common side effects @ DC, Pt self-reports following medication regimen, Keeps card in wallet w/medications listed by DC Comments:: Previously had difficulty remembering evening dose of Brillinta 90mg prior to this incident. Now he is taking plavix 75mg every morning. Interventions/plans: Instruct on medication effects & side effects, Review medication list w/patient every two weeks, Instruct importance of taking meds as ordered & assist problem solving - Tobacco Use Tobacco Use: Non-smoker - Hypertension Hypertension Diagnosis:: Hypertension ICD-10 I10 Resting Blood Pressure:: 111/63 [place] [employer] Hypertension Guidelines: [place] [employer] Hypertension Guidelines. Normal BP Less than 120/80. Elevated BP 120/80. Hypertension Stage 1: BP 130-139/80-89. Hypertesnion Stage 2: BP 140 or higher/90 or higher. Hypertension Crisis: BP higher than 180/120 Outcomes/Goals: Able to verbalize/achieve optimal blood pressure <130/80, Incorporates diet changes & exercise for blood pressure control by DC Interventions/plan: Instruct on optimal blood pressure, hypertension & medications, Instruct on effects of sodium, alcohol, stress, exercise &hypertension - Tobacco Cessation Referral Smoking Cessation Referral:: No Individual Education/Counseling:: No Education Schedule Given:: Yes Core - 30-Day Assessment Core - 60-Day Assessment Core - 90 Day Assessment Core - Final Assessment Psychosocial - Initial Assess - VIsit Date of Eval: 09/17/22 Session #:: 0 Not Applicable: No History of previous Mental disease:: Yes History of Emotional Disorders: Anxious, Depression Self-reported stressors: Other - Psychosocial Test Tool Used:: [employer] QOL Cardiac, PHQ-9 Questionnaire phq-9 Severity: Severity. 1-4 Minimal Depression. 5-9 Mild Depression. 10-14 Moderate Depression. 15-19 Moderately Sever Depression. 20-27 Severe Depression. Rule: - Outcomes/Goals: See list Psychosocial Outcomes/Goals:: ID's personal stressors & 2 strategies to manage stress by discharge - Intervention/Plan: See List Interventions/Plan:: Assess stressors,coping strategies & signs of derpression on admission, Instruct/assist pt to develop coping & personal stress Mgt strategies, Instruct patient to recognize signs & symptoms of depression, Instruct patient to recog Psychosocial - 30-Day Assess Psychosocial - 60-Day Assess Psychosocial - 90-Day Assess Psychosocial - Final Assessmen Patient Health Questionnaire Initial Assessment 1. Little interest or pleasure in doing things: Nearly every day 2. Feeling down, depressed, or hopeless: Nearly every day 3. Trouble falling or staying asleep, or sleeping too much: Nearly every day 4. Feeling tired or having little energy: Nearly every day 5. Poor appetite or overeating: Nearly every day 6. Feeling bad about yourself -- or that you are a failure or have let yourself or your family down: Nearly every day 7. Trouble concentrating on things, such as reading the newspaper or watching television: Nearly every day 8. Moving or speaking so slowly that other people could have noticed. Or the opposite - being so fidgety or restless that you have been moving around a lot more than usual: Not at all 9. Thoughts that you would be better off , or of hurting yourself in some way: Not at all How difficult have these problems made it for you to do your work, take care of things at home, or get along with other people?: Extremely difficult Total Score: 21 KRAIG-Q SV Test - Statements CAD is a disease of the arteries in the heart: False Examples of risk factors for heart disease: True Angina is chest pain or discomfort: True The benefits of resistance training include: True Eating more meat and dairy products: True Anti-platelet medications such as aspirin are important: True The only effective way to manage stress: False An exercise warm-up slowly increases heart rate: True Prepared, processed foods usually have high sodium: True Depression is common after a heart attack: I Don't Know The statin medications lower cholesterol: True To control blood pressure, lower the amount of sodium: True If someone gets chest discomfort during walking: False Transfats are partially hydrogenated vegetable oils: True Sleep apnea that is not treated increases the risk: True To control cholesterol, one should become a vegetarian: False Someone knows if he/she is exercising at the right level: I Don't Know Diabetes cannot be prevented with exercise & health eating: False Stress is a large risk for heart attack: True A diet that can help lower blood pressure is rich in: True - Total Score Total Correct Responses: 16 Self-Efficacy Initial Assessment We would like to know how confident you are in doing certain activities. Please select your confidence level for:: Select your confidence level for the following using the scale 1-10 where 1 is not at all confident and 10 is totally confident. Your score is the average of all 6 responses. Fatigue: How confident are you that you can keep the fatigue caused by your disease from interfering with the things you want to do? Select Number: 2 Physical Discomfort or Pain: How confident are you that you can keep the physical discomfort or pain of your disease from interfering with the things you want to do? Select Number: 3 Emotional Distress: How confident are you that you can keep the emotional distress caused by your disease from interfering with the things you want to do? Select Number: 2 Other Symptoms or Health Problems: How confident are you that you can keep other symptoms or health problems from interfering with the things you want to do? Select Number: 3 Different Tasks and Activities: How confident are you that you can do the different tasks and activities needed to manage your health condition so as to reduce your need to see a doctor? Select Number: 2 Medication: How confident are you that you can do things other than just taking medication to reduce how much your illness affects your everyday life? Select Number: 3 Total Score:: 2 Nutrition Survey - Nutrition Survey Initial Have you lost >10 lbs over the past 2 months without trying?: No Are you following a special diet at home for diabetes, low fat, or low salt?: Yes Are you interested in meeting with a dietitian for help understanding your diet?: No Do you eat less than 3 meals a day?: Yes Do you eat fatty meats (georges, sausage, ribs, etc), fried foods, desserts, large amounts of salad dressings, margarine, butter, or cheese most days?: Yes Do you have food allergies? [Enter types in comment field]: No Do you eat in restaurants more than 3 times a week?: No Do you season food with salt, seasoning salt, or garlic salt?: Yes Do you used canned, boxed, frozen meals, or soups, seasoning packets?: Yes Total Score:: 5
[2022-09-17 13:59] VITALS: BP 111/63; PULSE 54; RESP 16; TEMP 36.3; O2SAT 96; BMI 38.0
[2022-09-17 14:24] VITALS: BP 111/63; BMI 38.0
== END | disposition home or self-care (01) ==
LOC: CR 13:18
PROVIDERS: PCP Family Medicine; Referring Provider Internal Medicine Cardiovascular Disease; Visit Provider Internal Medicine Cardiovascular Disease
DX: I25.10 Atherosclerotic heart disease of native coronary artery without angina pectoris (principal); I25.2 Old myocardial infarction; Z95.5 Presence of coronary angioplasty implant and graft

== ENCOUNTER 2022-10-26 10:30 | Outpatient (RCR) | payer MEDICAID, SELFPAY ==
[2022-09-17 13:51] VITALS: BMI 38.0
== END 2022-10-27 23:59 ==
LOC: CR 10:30
PROVIDERS: PCP Family Medicine; Referring Provider Internal Medicine Cardiovascular Disease; Visit Provider Internal Medicine Cardiovascular Disease
DX: Z95.5 Presence of coronary angioplasty implant and graft (principal); I25.10 Atherosclerotic heart disease of native coronary artery without angina pectoris; I25.2 Old myocardial infarction
CPT/HCPCS: 93798

== ENCOUNTER 2022-10-29 12:33 | Emergency (ER) | payer MEDICAID, SELFPAY ==
[2022-09-17 14:24] VITALS: BMI 38.0
[2022-10-29 12:34] VITALS: BP 146/101; PULSE 71; RESP 16; TEMP 36.2; O2SAT 99; BMI 39.0
--- NOTE | 2022-10-29 13:03 | RAD_ITS ---
EXAM: XR CHEST, 1 VIEW CLINICAL INDICATION: chest pain TECHNIQUE: Frontal view of the chest. This report was created using [employer] report generation technology. COMPARISON: XR Chest dated 08/28/2022 FINDINGS: LUNGS AND PLEURAL SPACES: Normal. No consolidation or edema. No pneumothorax. No effusion. HEART: Normal heart size. Coronary artery stent noted. MEDIASTINUM: No mediastinal or hilar mass. BONES/JOINTS: No acute abnormality. SOFT TISSUES: Normal. RAD/Chest 1 View (Portable) IMPRESSION: No acute cardiopulmonary abnormality. No interval change. Electronically Signed: Onur Pulido MD at 13:24 EST ,
--- NOTE | 2022-10-29 13:05 | ED.VIS.CHEST ---
HPI <PREETI Gomez - Last Filed: 10/29/22 19:06> History of Present Illness Chief Complaint: Chest Pain Narrative Narrative: Patient presents today with intermittent aching midsternal chest pain that radiates to his back that started Saturday. Patient has a history of 2 MIs, his last being 2 months ago, and has 4 stents that are placed. He states the pain he is experiencing now does feel similar to when he had an AR. He denies shortness of breath, abdominal pain, nausea, vomiting, and history of blood clots. PFS <PREETI Gomez - Last Filed: 10/29/22 19:06> [facility] Medical History Anxiety Atherosclerosis of coronary artery without angina pectoris Bradycardia Cataract Depression Diabetes Diabetes mellitus type II, uncontrolled Essential hypertension Gastroesophageal reflux History of anxiety History of non-ST elevation myocardial infarction (NSTEMI) (08/28/22) Hyperlipidemia Hypothyroidism Kidney stones Obesity Obesity Substance abuse Home Medications nitroglycerin 0.4 mg sublingual tablet 0.4 mg sublingual Q5M PRN Cardiac/Chest Pain #30 tabs 04/25/21 [Rx Last Taken Unknown] levothyroxine 25 mcg tablet 25 tablet PO DAILY THYROID 07/20/21 [History Last Taken 2 Days Ago ~08/26/22] pen needle, diabetic 31 gauge x 15/64 #50 ea 07/20/21 [History Last Taken Unknown] OneTouch Verio Flex meter (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 meter) #1 ea 09/04/21 [Rx Last Taken Unknown] OneTouch Verio test strips (blood sugar diagnostic) #450 ea 09/04/21 [Rx Last Taken Unknown] FreeStyle Lite Strips (blood sugar diagnostic) #100 ea 09/06/21 [Rx Last Taken Unknown] albuterol sulfate 90 mcg/actuation aerosol inhaler (Ventolin HFA) 2 puff inhalation Q4H PRN PRN Wheezing ##1 12/20/21 [Rx Last Taken Unknown] pen needle, diabetic 31 gauge x 1/4 #120 ea 01/15/22 [Rx Last Taken Unknown] flash glucose sensor (FreeStyle Ximena 2 Sensor kit) #6 ea 07/16/22 [Rx Last Taken Unknown] aspirin 81 mg chewable tablet 81 mg PO BREAKFAST [facility] 08/28/22 [History Last Taken 08/28/22] atorvastatin 40 mg tablet 40 mg PO DAILY CHOLESTEROL 08/28/22 [History Last Taken 08/28/22] dulaglutide 0.75 mg/0.5 mL subcutaneous pen injector (Trulicity) 0.75 mg subcut TU DIABETES 08/28/22 [History Last Taken 08/21/22] insulin aspart U-100 100 unit/mL (3 mL) subcutaneous pen 15 unit subcut TIDCM DIABETES 08/28/22 [History Last Taken 08/27/22] insulin glargine 100 unit/mL (3 mL) subcutaneous pen 26 unit subcut DAILY DIABETES 08/28/22 [History Last Taken 08/27/22] isosorbide mononitrate 30 mg tablet,extended release 24 hr 30 mg PO DAILY ANGINA 08/28/22 [History Last Taken 08/28/22] lisinopril 20 mg tablet 20 mg PO DAILY BLOOD PRESSURE 08/28/22 [History Last Taken 08/28/22] metoprolol succinate 25 mg tablet,extended release 24 hr 25 mg PO DAILY BLOOD PRESSURE 08/28/22 [History Last Taken 08/28/22] omeprazole 20 mg capsule,delayed release 20 mg PO DAILY GERD 08/28/22 [History Last Taken 2 Days Ago ~08/26/22] clopidogrel 75 mg tablet (Plavix) 75 mg PO DAILY #30 tabs 08/30/22 [Rx Last Taken Unknown] Allergy/AdvReac Type Severity Reaction Status Date / Time No Known Allergies Allergy Verified 10/29/22 12:36 Surgical History History of coronary artery stent placement (08/28/22) History of coronary artery stent placement (~08/29/22) History of right coronary artery stent placement (08/28/22) Social History household members: family housing: house Smoking Status: Former smoker alcohol intake: never substance use type: marijuana caffeine: Yes Type: carbonated beverages Number of servings: 8 and coffee Number of servings: 1 what type of physical activity do you participate in: none ROS <PREETI Gomez - Last Filed: 10/29/22 19:06> ROS ED Constitutional Constitutional ED: Denies chills, fever(s) or sweats Eyes Eyes: Denies blurry vision or change in vision ENT ENT ED: Denies rhinorrhea or sore throat Cardiovascular Cardiovascular: Reports chest pain; Denies palpitations or racing heartbeat Respiratory/Chest Respiratory/Chest: Denies cough, dyspnea or dyspnea on exertion Gastrointestinal Gastrointestinal: Denies abdominal pain, nausea or vomiting Genitourinary Genitourinary ED: Denies dysuria, hematuria or urinary frequency Musculoskeletal Musculoskeletal: Reports back pain; Denies arthralgias or myalgias Integumentary Denies abscess, Abrasions or rash Neurologic Neurologic: Denies headache(s), paresthesias or weakness Psychiatric Psychiatric: Denies anxiety, depression or suicidal ideation EXAM <PREETI Gomez - Last Filed: 10/29/22 19:06> Physical Exam Const Vital Signs: 10/29/22 16:56 Pulse Rate 81 Respiratory Rate 18 Blood Pressure 132/84 H Pulse Ox 98 Positive well developed and obese General Appearance ED: well developed and NAD Nutritional Appearance: obese HEENT Reports moist mucous membranes normocephalic and atraumatic Eyes PERRL and EOMs intact bilaterally Neck no lymphadenopathy and supple Chest Wall inspection of chest normal Resp normal respiratory effort and clear to auscultation bilaterally Cardio regular rate, regular rhythm and no murmurs GI non-tender, non-distended and no masses Back/Spine no thoracic nor lumbar tenderness Extremity normal to inspection General Extremety ED: Negative for edema General Extremity: Negative for edema Neuro oriented x3, CN's II-XII intact bilaterally, no sensory deficits noted and gait normal Sensorium / Orientation: awake and alert Motor Exam: strength 5/5 throughout Psych mental status grossly normal Skin no rashes or lesions noted and no wounds <Dr. Jacob Stephens, - Last Filed: 10/30/22 16:36> Physical Exam Const Vital Signs: 10/29/22 16:56 Pulse Rate 81 Respiratory Rate 18 Blood Pressure 132/84 H Pulse Ox 98 <Dr. Jacob Stephens DO - Last Filed: 10/30/22 16:36> Heart Score History: Slightly/Non-Suspicious ECG: Normal Age: >45 - <65 years Risk Factors: >/= 3 Risk Factors or History of CAD Troponin: </= Normal Limit Score: 3 MDM <PREETI Gomez - Last Filed: 10/29/22 19:06> [facility] Narrative Medical decision making narrative: Patient presents today with intermittent midsternal chest pain that radiates to his back. He does have an extensive cardiac history. Chest x-ray came back with no acute findings. Troponins are 6 and 8. EKG shows no ST elevation. He is not having an AR. Patient states he last had cardiac rehab on Saturday. I have told him to discuss these current symptoms with his clinical psychiatrist in the next 3 to 5 days. He was given return instructions. Vital signs are stable. He is in no acute distress and nontoxic-appearing. He is not having chest pain here in the ED. I am comfortable with him discharging home and following up with cardiology. Patient is comfortable with plan. Lab Data Attestation: I reviewed the patient's lab results. Lab results narrative: WBC 11.7, anion gap 4, Leukos 133, troponin 6 and 8. Labs: Laboratory Results - last 24 hr 10/29/22 15:34 Troponin I High Sens 8 Radiography Diagnostic Testing: Clinical Impression(s) from Imaging Studies Chest X-Ray 10/29/22 13:03 IMPRESSION: No acute cardiopulmonary abnormality. No interval change. Electronically Signed: Onur Pulido MD at 13:24 EST , Chest x-ray also reviewed and interpreted by attending ED physician. EKG Initial EKG: Attestation: I personally reviewed and interpreted this EKG as follows: Interpretation: Sinus Rhythm Comments: 74 bpm. Intermediate axis, inferior infarct, age undetermined. Possible anterior infarct, age undetermined. No ST elevation. This EKG has also been reviewed and interpreted by attending ED physician. <Dr. Jacob Stephens DO - Last Filed: 10/30/22 16:36> [facility] Narrative Medical decision making narrative: This patient was seen with a PA/SSIS SSRS DEVELOPER Individually assessed they patient including history and physical. I have reviewed everything on the chart that is available and agree with the documentation provided by the PA/SSIS SSRS DEVELOPER including discussion about the assessment, treatment plan, discussion, and return precautions. 47-year-old male presenting with chest pain which is intermittent. HEART score of 3. EKG normal sinus rhythm with ventricular rate of 74 bpm on my interpretation. Chest x-ray my interpretation shows no acute cardiopulmonary process. Radiology services agree. Ultimately his cardiac work-up was normal. This was discussed with ambulating. He is to follow-up with his PCP and his clinical psychiatrist Lab Data Labs: Laboratory Results - last 24 hr 10/29/22 15:34 Troponin I High Sens 8 Radiography Diagnostic Testing: Clinical Impression(s) from Imaging Studies Chest X-Ray 10/29/22 13:03 IMPRESSION: No acute cardiopulmonary abnormality. No interval change. Electronically Signed: Onur Pulido MD at 13:24 EST , EKG Initial EKG: Comments: Patient presents today with intermittent midsternal chest pain that radiates to his back. He does have an extensive cardiac history. Chest x-ray came back with no acute findings. Troponins are 6 and 8. EKG shows no ST elevation. He is not having an AR. Patient states he last had cardiac rehab on Saturday. I have told him to discuss these current symptoms with his clinical psychiatrist in the next 3 to 5 days. He was given return instructions. Vital signs are stable. He is in no acute distress and nontoxic-appearing. He is not having chest pain here in the ED. I am comfortable with him discharging home and following up with cardiology. Patient is comfortable with plan. Discharge Plan Triage Chief Complaint: Chest Pain ED Midlevel Provider: Cinthya Block ED Provider: Jacob Stephens Dx/Rx/DC Orders Clinical Impression: Chest pain Instructions: ED Chest Pain, Uncertain Cause Prescriptions: No Action levothyroxine 25 mcg tablet 25 tablet PO DAILY (DME) pen needle, diabetic 31 gauge x 15/64 needle See Rx Instructions .ROUTE .MEDSUPPLY Qty: 50 Rx Instructions: As directed (DME) 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 meter [OneTouch Verio Flex meter] Misc See Rx Instructions .ROUTE .MEDSUPPLY Qty: 1 0RF Rx Instructions: As directed (DME) OneTouch Verio test strips Strip See Rx Instructions .ROUTE .MEDSUPPLY Qty: 450 3RF Rx Instructions: 5x/day (DME) FreeStyle Lite Strips Strip See Rx Instructions .ROUTE .MEDSUPPLY Qty: 100 6RF Rx Instructions: 4x/day (DME) FreeStyle Ximena 2 Sensor Kit See Rx Instructions .Route Qty: 6 1RF Rx Instructions: 1 sensor q 14 days nitroglycerin 0.4 mg Tablet, Sublingual 0.4 mg sublingual Q5M PRN (Reason: Cardiac/Chest Pain) Qty: 30 0RF albuterol sulfate [Ventolin HFA] 1 INHALER inhaler 2 puff inhalation Q4H PRN PRN (Reason: Wheezing) Qty: 1 0RF Rx Instructions: dispense with spacer please atorvastatin 40 mg tablet 40 mg PO DAILY lisinopril 20 mg tablet 20 mg PO DAILY isosorbide mononitrate 30 mg tablet extended release 24 hr 30 mg PO DAILY Rx Instructions: Hold for SBP less than 110 mmHg omeprazole 20 mg capsule,delayed release(DR/EC) 20 mg PO DAILY aspirin 81 mg tablet,chewable 81 mg PO BREAKFAST metoprolol succinate 25 mg tablet extended release 24 hr 25 mg PO DAILY insulin aspart U-100 100 unit/mL (3 mL) insulin pen 15 unit subcut TIDCM insulin glargine 100 unit/mL (3 mL) insulin pen 26 unit subcut DAILY Trulicity 0.75 mg/0.5 mL pen injector 0.75 mg subcut TU clopidogrel [Plavix] 75 mg tablet 75 mg PO DAILY Qty: 30 3RF Rx Instructions: Plavix 150 mg 2 tablets on 08/31 and then 75 mg daily to continue (DME) pen needle, diabetic 31 gauge x 10/31 needle See Rx Instructions .ROUTE .MEDSUPPLY Qty: 120 6RF Rx Instructions: 4x/day Primary Care Provider: Darinel Armstrong Referrals: Darinel Armstrong MD [Primary Care Provider] - 3-5 Days Activity Restrictions/Additional Instructions: Please follow-up with PCP and clinical psychiatrist. Please return if symptoms worsen or if new symptoms develop. Disposition Disposition: Home, Self Care Discharge Date/Time: 10/29/22 16:57
--- NOTE | 2022-10-29 13:15 | EKG12_ITS ---
Test Reason : CP Blood Pressure : / mmHG Vent. Rate : 074 BPM Atrial Rate : 074 BPM P-R Int : 198 ms QRS Dur : 100 ms QT Int : 404 ms P-R-T Axes : 020 002 014 degrees QTc Int : 448 ms Normal sinus rhythm Indeterminate axis Inferior infarct , age undetermined, cannot be excluded Possible Anterior infarct , age undetermined Abnormal ECG Confirmed by GITA JUAREZ, ROCIO ([id number]), legal editor OPAL GUERRERO ([id number]) on 10/31/2022 9:26:01 AM Referred By: HAFSA/FERMIN Confirmed By:ROCIO PELAYO MD
[2022-10-29 13:19] LABS: Absolute Lymphocyte Count 3.15 X10^3/uL (0.83-4.51); Absolute Neutrophil Count 7.1 X10^3/uL (2.0-7.7); Basophil# 0.06 X10^3/uL; Basophil% 0.5 % (0-1); Eosinophil# 0.38 X10^3/uL; Eosinophils% 3.2 % (0-5); Hematocrit 49.5 % (40-54); Lymphocyte # 3.15 X10^3/ul (0.83-4.51); Lymphocyte % 26.9 % (19-41); Mean Corp Hgb Conc 32.3 g/dL (32-36); Mean Corpuscular Hgb 29.8 pg (27.0-32.0); Mean Corpuscular Volume 92.2 fL (80-94); Mean Platelet Vol. 11.1 fl (6.2-12.0); Monocyte# 0.94 X10^3/uL; NRBC Flagged by Analyzer 0 % (0-5); Neutrophil # 7.13 X10^3/uL (2.7-7.7); Neutrophil % 61.1 % (47-70); Platelet Count 269 K/mm3 (150-450); RBC Distribution Width CV 12.7 % (11.6-14.6); RBC Distribution Width SD 42.7 fl (35.1-43.9); Red Blood Count 5.37 M/mm3 (4.6-6.2); White Blood Count 11.7 K/mm3 (4.4-11.0)
[2022-10-29 13:35] LABS: Anion Gap 4 (5-15); BUN 14 mg/dL (7-18); Calcium,Total 9.3 mg/dL (8.5-10.1); Chloride 105 mmol/L (98-107); Creatinine, Serum 0.94 mg/dL (0.70-1.30); EST Glomerular Filtration Rate 92 mL/min (>60); Est Glom Filt Rate - Afr Amer 111 mL/min (>60); Estimated Creatinine Clearance 103.47 ml/min; Glucose 133 mg/dL (74-106); Potassium 4.1 mmol/L (3.5-5.1); Sodium Level 136 mmol/L (136-145); Troponin-I HS (w/2H Reflex) 6 pg/mL (3.0-78.0)
[2022-10-29 13:46] VITALS: PULSE 66; RESP 12; O2SAT 98
[2022-10-29 14:16] VITALS: BP 123/89; PULSE 65; RESP 15; O2SAT 97
[2022-10-29 15:05] VITALS: BP 119/90; PULSE 68; RESP 14; O2SAT 96
[2022-10-29 16:26] VITALS: BP 132/84; PULSE 66; RESP 15; O2SAT 97
[2022-10-29 16:42] LABS: Troponin-I HS 8 pg/mL (3.0-78.0)
[2022-10-29 16:56] VITALS: BP 132/84; PULSE 81; RESP 18; O2SAT 98
== END 2022-10-29 16:57 | disposition home or self-care (01) ==
PROVIDERS: Physician Assistant; Emergency Provider Student in an Organized Health Care Education/Training Program; PCP Family Medicine; Visit Provider Student in an Organized Health Care Education/Training Program
DX: R07.9 Chest pain, unspecified (principal); I25.10 Atherosclerotic heart disease of native coronary artery without angina pectoris; F12.90 Cannabis use, unspecified, uncomplicated; I25.2 Old myocardial infarction; Z87.891 Personal history of nicotine dependence; Z95.5 Presence of coronary angioplasty implant and graft
CPT/HCPCS: 71045; 80048; 84484; 85025; 93005; 99283; A4216

== ENCOUNTER → 2022-11-12 | Outpatient (CLI) | payer MEDICAID, SELFPAY ==
[2022-09-17 14:24] VITALS: BMI 38.0
[2022-11-12 11:51] LABS: Erythrocyte Sedimentation Rate 9 mm/hr (0-20)
[2022-11-12 12:10] LABS: CPK Total, Creatine Kinase 135 U/L (39-308); CRP < 2.90 mg/L (0.0-3.0); Rheumatoid Factor < 10.0 IU/mL (<15)
[2022-11-13 17:17] LABS: ANTINUCLEAR ANTIBODIES DIRECT Negative (Negative)
[2022-11-19 18:29] LABS: HLA B27 Negative (.)
== END | disposition home or self-care (01) ==
LOC: LAB 10:32
PROVIDERS: PCP Family Medicine; Referring Provider Physician Assistant; Visit Provider Physician Assistant
DX: R29.898 Other symptoms and signs involving the musculoskeletal system (principal); M25.511 Pain in right shoulder; M25.512 Pain in left shoulder
CPT/HCPCS: 86225; 86235 ×5; 36415; 81374; 82550; 85652; 86038; 86140; 86431

== ENCOUNTER → 2022-11-19 | Outpatient (CLI) | payer MEDICAID, SELFPAY ==
[2022-09-17 14:24] VITALS: BMI 38.0
[2022-11-19 12:58] LABS: BNP,B-Type NATRIURETIC PEPTIDE 9.9 pg/mL (0-100)
== END | disposition home or self-care (01) ==
LOC: LAB 11:21
PROVIDERS: PCP Family Medicine; Referring Provider Internal Medicine Cardiovascular Disease; Visit Provider Internal Medicine Cardiovascular Disease
DX: I25.10 Atherosclerotic heart disease of native coronary artery without angina pectoris (principal); I25.2 Old myocardial infarction; Z95.5 Presence of coronary angioplasty implant and graft; R63.5 Abnormal weight gain; R06.02 Shortness of breath
CPT/HCPCS: S9472; 36415; 83880; 93798

== ENCOUNTER 2022-11-22 10:18 | Outpatient (RCR) | payer MEDICAID, SELFPAY ==
[2022-09-17 14:24] VITALS: BMI 38.0
--- NOTE | 2022-11-22 11:30 | HP.PTEVAL ---
Patient's Visit Information MICHAEL NAVA is a 47 year old M referred to Physical Therapy by PREETI Rodriguez with a diagnosis of Pain in right shoulder, M25.511, Pain in left shoulder, M25.512. Date of Evaluation: 11/22/22 Physical Therapist: Saurav Gongora - Visit Plan Frequency: 2x /Week Duration: 6 Weeks Plan: Continue with improving bilateral shoulder PROM, AAROM, AROM, and light RTC/scapular strengthening as tolerated. Use manual therapy and E-stim as needed for pain control. - Subjective Pt. is a 47 y.o. male who is having bilateral shoulder pain with right shoulder worse than left which has been going on for about 10-12 years with no specific injury that he is aware of. Pt. PLOF includes no history of previous shoulder surgeries. He had recent x-ray of his shoulders which was negative. Pt. reports neck pain as well and occasional headaches. He will also occasionally get numbness/tingling in both of his arms at night. Pt. has difficulty with reaching overhead, reaching out to the side, reaching behind his back, sleeping, driving, lifting things, carrying things, pushing/pulling, fishing, housework, and yard work. Pt. is currently unemployed. His goal with physical therapy is to be able to sleep at night. Pt. has had physical therapy for his shoulders a few times prior which he said showed no improvement. Pt. rates right shoulder pain at 7/10, left 4/10, at worst 9/10, at best 4/10 and describes the pain as constant achy pain and stabbing pains. He will occasionally take Tylenol for pain. His PMH includes two heart attacks, four stents placed for heart, and type II diabetes. Pt. lives with his mom. His hobbies include hunting, fishing, and being outdoors. - Objective Posture- Good posture in standing. Palpation- No tenderness to palpation. Left shoulder AROM flexion 108 degrees, abduction 90 degrees, ER 20 degrees, IR 70 degrees. Left shoulder PROM flexion 125 degrees, abduction 110 degrees, ER 30 degrees, IR 73 degrees. Right shoulder AROM flexion 90 degrees, abduction, 80 degrees, ER 20 degrees, IR 68 degrees. Right shoulder PROM flexion 120 degrees, abduction 120 degrees, ER 25 degrees, IR 70 degrees. Left shoulder strength flexion 3-/5, abduction 3-/5, ER 2-/5, IR 4/5. Right shoulder strength flexion 3-/5, abduction 2+/5, ER 2-/5, IR 4/5. Sensation- WNL bilateral upper extremities. Special tests- Painful arc [+], Mayers Angelo [+], Lift off [+], Infraspinatus test [+], Drop arm [-] - Balance/Special Test Scores Quick DASH Score: 77.2725 - Goals Goal 1:: Pt. will improve bilateral shoulder AROM flexion and abduction > 140 degrees in order to improve reaching overhead. Goal Time Frame: 4-6 Weeks Goal 2:: Pt. will report less than two interruptions with sleep due to shoulder pain. Goal Time Frame: 4-6 Weeks Goal 3:: Pt. will be able to reach overhead and out to the side with bilateral shoulder pain < 5/10. Goal Time Frame: 4-6 Weeks Goal 4:: Pt. will be able to lift at least 20# with bilateral shoulder pain < 5/10. Goal Time Frame: 4-6 Weeks Goal 5:: Pt. will be able to complete ADL's with bilateral shoulder pain < 5/10. Goal Time Frame: 4-6 Weeks Goal 6:: Pt. will improve Quick Dash score < 60% disability in order to improve tolerance with ADL's. Goal Time Frame: 4-6 Weeks - Rehabilitation Potential Physical Therapy Diagnosis: Decreased bilateral shoulder ROM, strength, and pain Rehabilitation Potential: Fair - Anticipated Interventions Patient/Client Instruction: Educate patient on: Condition, Plan of Care For the Purpose of:: To decrease pain, To increase ROM, To improve ability to perform ADL's, To improve performance and independence with ADL's, To increase flexibility/ROM, To assume or resume ADL's, To improve tolerance to ADL's Therapeutic Exercise to Include: Strength training, Passive ROM, Active ROM Comment: Continue with improving bilateral shoulder PROM, AAROM, AROM and light RTC/scapular strengthening. For the Purpose of:: To decrease pain, To increase ROM, To improve ability to perform ADL's, To improve performance and independence with ADL's, To assume or resume ADL's, To improve tolerance to ADL's Functional Training to Include: ADL Training For the Purpose of:: To improve ability to perform ADL's, To improve performance and independence with ADL's, To assume or resume ADL's, To improve tolerance to ADL's Manual Therapy Techniques to Include: Mobilization, Passive ROM, Soft tissue mobilization For the Purpose of:: To decrease pain, To increase ROM, To improve ability to perform ADL's, To improve performance and independence with ADL's, To increase flexibility/ROM, To assume or resume ADL's, To improve tolerance to ADL's TENS: Yes IF ES: Yes Cryotherapy (ice pack, ice massage): Yes For the Purpose of:: To decrease pain, To increase ROM, To improve ability to perform ADL's, To improve performance and independence with ADL's, To increase flexibility/ROM, To assume or resume ADL's, To improve tolerance to ADL's Thank you for the opportunity to evaluate your patient. For Medicare and Medicare HMO plans, please review the plan of care and approve it. It will need to be FAXED BACK to us at [phone] for Medicare purposes. For Medicare only, by signing this I certify the plan of care. Please let me know if there are questions or concerns regarding this plan of care. Physician Signature: Date:
--- NOTE | 2023-02-13 09:39 | HP.PT.NRP ---
MICHAEL NAVA was seen in my office for initial evaluation on 11/22/22. The following Plan of Care was established for this patient: Initial Frequency: 2x /Week Initial Duration: 6 Weeks Patient/Client Instruction: Educate patient on: Condition, Plan of Care For the Purpose of:: To decrease pain, To increase ROM, To improve ability to perform ADL's, To improve performance and independence with ADL's, To increase flexibility/ROM, To assume or resume ADL's, To improve tolerance to ADL's Therapeutic Exercise to Include: Strength training, Passive ROM, Active ROM For the Purpose of:: To decrease pain, To increase ROM, To improve ability to perform ADL's, To improve performance and independence with ADL's, To assume or resume ADL's, To improve tolerance to ADL's Functional Training to Include: ADL Training For the Purpose of:: To improve ability to perform ADL's, To improve performance and independence with ADL's, To assume or resume ADL's, To improve tolerance to ADL's Manual Therapy Techniques to Include: Mobilization, Passive ROM, Soft tissue mobilization For the Purpose of:: To decrease pain, To increase ROM, To improve ability to perform ADL's, To improve performance and independence with ADL's, To increase flexibility/ROM, To assume or resume ADL's, To improve tolerance to ADL's TENS: Yes IF ES: Yes Cryotherapy (ice pack, ice massage): Yes For the Purpose of:: To decrease pain, To increase ROM, To improve ability to perform ADL's, To improve performance and independence with ADL's, To increase flexibility/ROM, To assume or resume ADL's, To improve tolerance to ADL's This patient was last seen in our office 11/22/22. Pertinent comments regarding their Physical therapy will appear below: Pt seen for IE and POC established, after approval received and message left for patient, no return call was given to schedule. At this point, it has been over 2 months and I will discontinue due to nonattendance. At this point I will be discontinuing this patient from physical therapy. I would be happy to see this patient again in the future if found appropriate by the physician. Thank you! Charbel Bonilla, DPT, OCS, CSCS Balance/Gait/Functional tests - Balance/Special Test Scores Quick DASH Score: [phone]
== END 2022-11-22 19:00 | disposition home or self-care (01) ==
LOC: PT 10:18
PROVIDERS: PCP Family Medicine; Referring Provider Physician Assistant; Visit Provider Physician Assistant
DX: R29.898 Other symptoms and signs involving the musculoskeletal system (principal); M25.511 Pain in right shoulder; M25.512 Pain in left shoulder
CPT/HCPCS: 97110; 97162

== ENCOUNTER 2022-11-26 10:30 | Outpatient (RCR) | payer MEDICAID, SELFPAY ==
[2022-09-17 14:24] VITALS: BMI 38.0
== END 2022-11-27 23:59 ==
LOC: CR 10:30
PROVIDERS: PCP Family Medicine; Referring Provider Internal Medicine Cardiovascular Disease; Visit Provider Internal Medicine Cardiovascular Disease
DX: I25.10 Atherosclerotic heart disease of native coronary artery without angina pectoris (principal); I25.2 Old myocardial infarction; Z95.5 Presence of coronary angioplasty implant and graft
CPT/HCPCS: 93798

== ENCOUNTER 2022-12-24 10:30 | Outpatient (RCR) | payer MEDICAID, SELFPAY ==
[2022-09-17 14:24] VITALS: BMI 38.0
--- NOTE | 2022-12-18 12:18 | PCM.CR.ITP ---
Diagnosis Exercise - 60-day Assessment - Visit Date of Eval: 12/18/22 Session #:: 26 - Physician Prescribed Exercise Modalities: Treadmill, Rower, NuStep Frequency: 3x/week for 12 weeks [36 sessions] Intensity: 60-80% of age predicted maximum heart rate reserve Duration: 30 - 45 minutes Current METSs:: 7.0 Target Heart Rate:: 113-147 Current RPE:: 13-14 Resting Blood Pressure: 132/76 Maximum Exercise Blood Pressure: 192/86 EKG Type: NSR to sinus tachycardia with rare PAC - Outcomes & Goals Goals:: Verbalizes understanding of THR, RPE & goal METS by session 6, Documents in home exercise log/reports 30 min aerobic 5 day/wk by DC, Demonstrates accurate pulse taking by DC - Intervention & Plan Exercise Program Goals: Instruct on personal THR & RPE, Instruct on MET level & personal MET goal, Instruct on home exercise - 30-day Reassessments 30 day Reassessments:: Met - Physical Activity Home Exercise Physical Activity - Home Exercise: Safe Exercise, Warm-up, Self-monitoring, Cool-Down, Home Exercise > 30 min Daily, Sitting Time <3 hours/daily - Outcomes & Goals Outcomes/Goals: Demonstrates correct Warm-up/exercise Cool-Down (S3) if = 2.5 METs, Verbalizes symptoms of exercise intolerance by Session 3 (S3), Demonstrate safe equipment use (S3) & follows exercise prescrition (6) - Intervention & Plan Plan/Intervention: Instruct warm-up & cool-down if exercising at > 2 METs, Instruct on symptoms of exercise intolerance & actions to take, Instruct & monitor on saf, Assess intial functional capacity & safety risk - 30-day Reassessments 30 day Reassessments:: Met Nutrition - Initial Assessment Nutrition - 30-Day Assessment Nutrition - 60-Day Assessment - Program Goals Nutrition Program Goals: LDL <100 optimal. 100 - 129 Near optimal. 130 - 159 Borderline High. 160 - 189 High. Total Cholesterol <200 desirable. 200 - 239 Borderline High. >/= 240 High. HDL < 40 Low >/=60 High. Triglycerides <150 desirable. <199 optimal. VlDL 5 - 40. HgbA1C <7%. BMI <25 Patient has diagnosis of Hyperlipidemia (ICD E78)?: Yes - Visit Date of Assessment:: 12/18/22 Session #:: 26 - Cholesterol/Lipids (Other Core Measures) Triglycerides (mg/dL): 84 Total Cholesterol (mg/dL): 102 LDL Cholesterol (mg/dL): 56 HDL Cholesterol (mg/dL): 29 Determine presence & major risk factors that modify LDL goal: Hypertension or hypertensive medication, Low HDL cholesterol <40 mg/dL*, Family history of premature CHD in Male < 55 years: female <65 yearsFa, Age men > 45 years; women >/= 55 years Outcomes/Goals: Pt IDs own risk factors & lifestyle modifications by Session 10, Verbalizes symptoms of angina & response by session 3., Pt independently manages Intervention/Plan: Instruct on personal lipid levels & lipid goals/NCEP guidelines, Instruct on cholesterol Referral to dietitian:: Yes - Medical Nutrition Therapy 30-day Reassessments:: Progressing Reassessment Notes & Comments:: Expressed to the patient the importance of managing his contributing risk factors and the higher risk of mortality if no lifestyle changes are made. In addition to his heart disease he also has risk factors associated with his DM II, HTN, Obesity and hyperlipidemia all which contribute to higher risk of mortality. - Diabetes (Other Core Measures) Diabetes Type: Diagnosis Type II ICD-10 E11 Fasting blood glucose:: 139 Hgb A1C (4.2 -6.3): 8.7 Insulin dependent injection/pump?: Yes Non-Insulin Dependent?: Yes Do you monitor your blood sugar at home?: Yes Referral to Diabetic Clinic:: Yes Outcomes/Goals:: Able to state symptoms of, Able to state, Able to state Intervention/Plan:: Instruct on, Refer to, Instruct on 30-day Reassessments:: Progressing - Weight Mgt (Other Care) Not Applicable: No Height: 6 ft Weight:: 281 lb BMI: 38.1 Diagnosis Overweight/Obesity BMI> 30% ICD-10 E66: Yes Diagnosis High BMI/Morbid Obesity BMI> 35% ICD-10 Z68: Yes Outcomes/Goals: Pt sets, maintains & shows weight loss goal & trend during rehab Intervention/Plan: Instruct on ideal BMI & set weight loss goal w/patient, Assist pt to ID & incorporate diet changes for weight loss by S9, Refer to Structured Weight Loss program as appropriate, Encourage goal of using 250-300dcal per session for weight loss 30 day Reassessments:: Not Met - patient has had little to no weight loss - Healthy Eating Habits Will attend diet classes:: Yes Outcomes/Goals:: Consume diet rich in vegs,fruits,whole grain/high fiber,fish,lean meat, Limit sat/trans fats,cholesterol & added salts & sugars Intervention/Plan:: Assess current eating habits 30-day Reassessments:: Progressing - Education Gave educational materials for:: Healthy eating Nutrition - 90-Day Assessment Nutrition - Final Assessment Core - Initial Assessment Core - 30-Day Assessment Core - 60-Day Assessment - Visit Date of Eval: 12/18/22 Session #:: 26 - Medication Compliance Preventative Medication(s):: Aspirin, Clopidogrel/P2Y12 inhibit, Statin/lipid, Beta flo H/O mental health issues: depression, anxiety, or addiction?: No Doesn?t believe in the benefits of treatment?: No Believes medications are unnecessary or harmful?: No Has a concern about medication side effects?: No Expresses concern over the cost of medications?: No Outcomes/Goals: Verbalizes medications,desired effect & common side effects @ DC, Pt self-reports following medication regimen, Keeps card in wallet w/medications listed by DC Interventions/plans: Instruct on medication effects & side effects, Review medication list w/patient every two weeks, Instruct importance of taking meds as ordered & assist problem solving 30-day Reassessments:: Met - Tobacco Use Tobacco Use: Non-smoker - Hypertension Hypertension Diagnosis:: Hypertension ICD-10 I10 Resting Blood Pressure:: 130/80 [place] [employer] Hypertension Guidelines: [place] [employer] Hypertension Guidelines. Normal BP Less than 120/80. Elevated BP 120/80. Hypertension Stage 1: BP 130-139/80-89. Hypertesnion Stage 2: BP 140 or higher/90 or higher. Hypertension Crisis: BP higher than 180/120 Outcomes/Goals: Able to verbalize/achieve optimal blood pressure <130/80, Incorporates diet changes & exercise for blood pressure control by DC Interventions/plan: Instruct on optimal blood pressure, hypertension & medications, Instruct on effects of sodium, alcohol, stress, exercise &hypertension 30 day Reassessments:: Progressing - Tobacco Cessation Referral Smoking Cessation Referral:: No Individual Education/Counseling:: No Education Schedule Given:: Yes Core - 90 Day Assessment Core - Final Assessment Psychosocial - Initial Assess Psychosocial - 30-Day Assess Psychosocial - 60-Day Assess - VIsit Date of Eval: 12/18/22 Session #:: 26 Not Applicable: Yes History of previous Mental disease:: No History of Emotional Disorders: Depression - Psychosocial Test Tool Used:: PHQ-9 Questionnaire phq-9 Severity: Severity. 1-4 Minimal Depression. 5-9 Mild Depression. 10-14 Moderate Depression. 15-19 Moderately Sever Depression. 20-27 Severe Depression. Rule: - Referral to Behavioral Health PS - Interventions: Yes Referral to Physician if PHQ-9 if score is 5-9:, Yes Attend Stress Management Classes, No Referral to Behavioral Health if PHQ-9 score >9:, No Referral to [facility] - Outcomes/Goals: See list Psychosocial Outcomes/Goals:: ID's personal stressors & 2 strategies to manage stress by discharge - Intervention/Plan: See List Interventions/Plan:: Assess stressors,coping strategies & signs of derpression on admission, Instruct/assist pt to develop coping & personal stress Mgt strategies, Instruct patient to recognize signs & symptoms of depression, Instruct patient to recog - 30-day Reassessments: 30 day Reassessments:: Progressing Psychosocial - 90-Day Assess Psychosocial - Final Assessmen Patient Health Questionnaire 60-Day Re-eval Assessment 1. Little interest or pleasure in doing things: Nearly every day 2. Feeling down, depressed, or hopeless: Nearly every day 3. Trouble falling or staying asleep, or sleeping too much: Nearly every day 4. Feeling tired or having little energy: Nearly every day 5. Poor appetite or overeating: Nearly every day 6. Feeling bad about yourself -- or that you are a failure or have let yourself or your family down: Nearly every day 7. Trouble concentrating on things, such as reading the newspaper or watching television: Nearly every day 8. Moving or speaking so slowly that other people could have noticed. Or the opposite - being so fidgety or restless that you have been moving around a lot more than usual: Not at all 9. Thoughts that you would be better off , or of hurting yourself in some way: Not at all How difficult have these problems made it for you to do your work, take care of things at home, or get along with other people?: Not difficult at all Total Score: 21 Self-Efficacy 60-Day Re-eval Assessment We would like to know how confident you are in doing certain activities. Please select your confidence level for:: Select your confidence level for the following using the scale 1-10 where 1 is not at all confident and 10 is totally confident. Your score is the average of all 6 responses. Fatigue: How confident are you that you can keep the fatigue caused by your disease from interfering with the things you want to do? Select Number: 4 Physical Discomfort or Pain: How confident are you that you can keep the physical discomfort or pain of your disease from interfering with the things you want to do? Select Number: 5 Emotional Distress: How confident are you that you can keep the emotional distress caused by your disease from interfering with the things you want to do? Select Number: 4 Other Symptoms or Health Problems: How confident are you that you can keep other symptoms or health problems from interfering with the things you want to do? Select Number: 5 Different Tasks and Activities: How confident are you that you can do the different tasks and activities needed to manage your health condition so as to reduce your need to see a doctor? Select Number: 3 Medication: How confident are you that you can do things other than just taking medication to reduce how much your illness affects your everyday life? Select Number: 5 Total Score:: 4 Nutrition Survey
[2022-12-18 12:30] VITALS: BP 130/80; BP 132/76; BMI 38.1
== END 2022-12-25 23:59 ==
LOC: CR 10:30
PROVIDERS: PCP Family Medicine; Referring Provider Internal Medicine Cardiovascular Disease; Visit Provider Internal Medicine Cardiovascular Disease
DX: I25.10 Atherosclerotic heart disease of native coronary artery without angina pectoris (principal); I25.2 Old myocardial infarction; Z95.5 Presence of coronary angioplasty implant and graft
CPT/HCPCS: 93798

== ENCOUNTER 2022-12-28 10:30 | Outpatient (RCR) | payer MEDICAID, SELFPAY ==
[2022-12-18 12:30] VITALS: BMI 38.1
[2022-12-26 00:15] VITALS: BP 130/80; BP 132/76
--- NOTE | 2023-01-14 08:34 | PCM.CR.ITP ---
Diagnosis Exercise - 90-day Assessment - Visit Date of Eval: 01/14/23 Session #:: 30 Comments:: Patient has been absent from scheduled sessions of cardiac rehab since 12/31/2022. - Physician Prescribed Exercise Modalities: Treadmill, Rower, NuStep Frequency: 3x/week for 12 weeks [36 sessions] Intensity: 60-80% of age predicted maximum heart rate reserve Duration: 30 - 45 minutes Current METSs:: 8.8 Current RPE:: 13-14 Maximum Excercise HR:: 114 Resting Blood Pressure: 148/80 Maximum Exercise Blood Pressure: 190/90 EKG Type: NSR to ST with rare PAC. Current Physical Activity or Exercising minutes: 36:12 - Outcomes & Goals Goals:: Verbalizes understanding of THR, RPE & goal METS by session 6, Documents in home exercise log/reports 30 min aerobic 5 day/wk by DC, Demonstrates accurate pulse taking by DC - Intervention & Plan Exercise Program Goals: Instruct on personal THR & RPE, Instruct on MET level & personal MET goal, Show patient to take own pulse /validate performance until accurate, Instruct on home exercise - 30-day Reassessments 30 day Reassessments:: Met - Physical Activity Home Exercise Physical Activity - Home Exercise: Safe Exercise, Warm-up, Self-monitoring, Cool-Down, Home Exercise > 30 min Daily, Sitting Time <3 hours/daily - Outcomes & Goals Outcomes/Goals: Demonstrates correct Warm-up/exercise Cool-Down (S3) if = 2.5 METs, Verbalizes symptoms of exercise intolerance by Session 3 (S3), Demonstrate safe equipment use (S3) & follows exercise prescrition (6) - Intervention & Plan Plan/Intervention: Instruct warm-up & cool-down if exercising at > 2 METs, Instruct on symptoms of exercise intolerance & actions to take, Instruct & monitor on saf, Assess intial functional capacity & safety risk - 30-day Reassessments 30 day Reassessments:: Met Nutrition - Initial Assessment Nutrition - 30-Day Assessment Nutrition - 60-Day Assessment Nutrition - 90-Day Assessment - Program Goals Nutrition Program Goals: LDL <100 optimal. 100 - 129 Near optimal. 130 - 159 Borderline High. 160 - 189 High. Total Cholesterol <200 desirable. 200 - 239 Borderline High. >/= 240 High. HDL < 40 Low >/=60 High. Triglycerides <150 desirable. <199 optimal. VlDL 5 - 40. HgbA1C <7%. BMI <25 Patient has diagnosis of Hyperlipidemia (ICD E78)?: Yes - Visit Date of Assessment:: 01/14/23 Session #:: 30 - Cholesterol/Lipids (Other Core Measures) Triglycerides (mg/dL): 84 - 08/29/2022 Total Cholesterol (mg/dL): 102 LDL Cholesterol (mg/dL): 56 HDL Cholesterol (mg/dL): 29 Determine presence & major risk factors that modify LDL goal: Hypertension or hypertensive medication, Low HDL cholesterol <40 mg/dL*, Family history of premature CHD in Male < 55 years: female <65 yearsFa, Age men > 45 years; women >/= 55 years Outcomes/Goals: Pt IDs own risk factors & lifestyle modifications by Session 10, Verbalizes symptoms of angina & response by session 3., Pt independently manages Intervention/Plan: Instruct on personal lipid levels & lipid goals/NCEP guidelines, Instruct on cholesterol Referral to dietitian:: Yes - Medical Nutrition Theerpay 30-day Reassessments:: Progressing - Diabetes (Other Core Measures) Diabetes Type: Diagnosis Type II ICD-10 E11 Fasting blood glucose:: 139 Hgb A1C (4.2 - 6.3): 8.5 Insulin dependent injection/pump?: Yes Non-Insulin Dependent?: Yes Do you monitor your blood sugar at home?: Yes Referral to Diabetic Clinic:: Yes Outcomes/Goals:: Able to state symptoms of, Able to state, Able to state Intervention/Plan:: Instruct on, Refer to, Instruct on 30-day Reassessments:: Progressing - Weight Mgt (Other Care) Not Applicable: No Height: 6 ft Weight:: 282 lb BMI: 38.2 Diagnosis Overweight/Obesity BMI> 30% ICD-10 E66: Yes Diagnosis High BMI/Morbid Obesity BMI> 35% ICD-10 Z68: Yes Outcomes/Goals: Pt sets, maintains & shows weight loss goal & trend during rehab Intervention/Plan: Instruct on ideal BMI & set weight loss goal w/patient, Assist pt to ID & incorporate diet changes for weight loss by S9, Refer to Structured Weight Loss program as appropriate, Encourage goal of using 250-300dcal per session for weight loss 30 day Reassessments:: Not Met Reassessment Notes & Comments:: Patient has had no weight loss in 90 days. Patient need reinforcement of the importance of controlling his weight and diabetes as high risk factors related to his cardiac disease. - Healthy Eating Habits Will attend diet classes:: Yes Outcomes/Goals:: Consume diet rich in vegs,fruits,whole grain/high fiber,fish,lean meat, Limit sat/trans fats,cholesterol & added salts & sugars Intervention/Plan:: Assess current eating habits 30-day Reassessments:: Not Met - Education Gave educational materials for:: Signs & symptoms of hypoglycemia, Signs & symptoms of hyperglycemia, Relate diabetes to coronary artery disease, Healthy eating Nutrition - Final Assessment Core - Initial Assessment Core - 30-Day Assessment Core - 60-Day Assessment Core - 90 Day Assessment - Visit Date of Eval: 01/14/23 Session #:: 30 - Medication Compliance Preventative Medication(s):: Aspirin, Clopidogrel/P2Y12 inhibit, Statin/lipid, Beta flo H/O mental health issues: depression, anxiety, or addiction?: No Doesn?t believe in the benefits of treatment?: No Believes medications are unnecessary or harmful?: No Has a concern about medication side effects?: No Expresses concern over the cost of medications?: No Outcomes/Goals: Verbalizes medications,desired effect & common side effects @ DC, Pt self-reports following medication regimen, Keeps card in wallet w/medications listed by DC Interventions/plans: Instruct on medication effects & side effects, Review medication list w/patient every two weeks 30-day Reassessments:: Met - Tobacco Use Tobacco Use: Non-smoker - Hypertension Hypertension Diagnosis:: Hypertension ICD-10 I10 Resting Blood Pressure:: 148/80 - Resting BPs remain above 130/80 [place] [employer] Hypertension Guidelines: [place] [employer] Hypertension Guidelines. Normal BP Less than 120/80. Elevated BP 120/80. Hypertension Stage 1: BP 130-139/80-89. Hypertesnion Stage 2: BP 140 or higher/90 or higher. Hypertension Crisis: BP higher than 180/120 Outcomes/Goals: Able to verbalize/achieve optimal blood pressure <130/80, Incorporates diet changes & exercise for blood pressure control by DC Interventions/plan: Instruct on optimal blood pressure, hypertension & medications, Instruct on effects of sodium, alcohol, stress, exercise &hypertension 30 day Reassessments:: Not Met - Tobacco Cessation Referral Smoking Cessation Referral:: No Individual Education/Counseling:: No Education Schedule Given:: Yes Core - Final Assessment Psychosocial - Initial Assess Psychosocial - 30-Day Assess Psychosocial - 60-Day Assess Psychosocial - 90-Day Assess - VIsit Date of Eval: 01/14/23 Session #:: 30 Not Applicable: No History of previous Mental disease:: Yes History of Emotional Disorders: Anxious, Depression - Psychosocial Test Tool Used:: PHQ-9 Questionnaire phq-9 Severity: Severity. 1-4 Minimal Depression. 5-9 Mild Depression. 10-14 Moderate Depression. 15-19 Moderately Sever Depression. 20-27 Severe Depression. Rule: - Referral to Behavioral Health PS - Interventions: Yes Attend Stress Management Classes, No Referral to Behavioral Health if PHQ-9 score >9:, No Referral to [facility], No Referral to Physician if PHQ-9 if score is 5-9: - Outcomes/Goals: See list Psychosocial Outcomes/Goals:: ID's personal stressors & 2 strategies to manage stress by discharge - Intervention/Plan: See List Interventions/Plan:: Assess stressors,coping strategies & signs of derpression on admission, Instruct/assist pt to develop coping & personal stress Mgt strategies, Instruct patient to recognize signs & symptoms of depression, Instruct patient to recog - 30-day Reassessments: 30 day Reassessments:: Met - Patient is being treated medically for depression Psychosocial - Final Assessmen Patient Health Questionnaire 90-Day Re-eval Assessment 1. Little interest or pleasure in doing things: Nearly every day 2. Feeling down, depressed, or hopeless: Nearly every day 3. Trouble falling or staying asleep, or sleeping too much: Nearly every day 4. Feeling tired or having little energy: Nearly every day 5. Poor appetite or overeating: Nearly every day 6. Feeling bad about yourself -- or that you are a failure or have let yourself or your family down: Nearly every day 7. Trouble concentrating on things, such as reading the newspaper or watching television: Nearly every day 8. Moving or speaking so slowly that other people could have noticed. Or the opposite - being so fidgety or restless that you have been moving around a lot more than usual: Not at all 9. Thoughts that you would be better off , or of hurting yourself in some way: Not at all How difficult have these problems made it for you to do your work, take care of things at home, or get along with other people?: Extremely difficult Total Score: 21 Self-Efficacy 90-Day Re-eval Assessment We would like to know how confident you are in doing certain activities. Please select your confidence level for:: Select your confidence level for the following using the scale 1-10 where 1 is not at all confident and 10 is totally confident. Your score is the average of all 6 responses. Fatigue: How confident are you that you can keep the fatigue caused by your disease from interfering with the things you want to do? Select Number: 6 Physical Discomfort or Pain: How confident are you that you can keep the physical discomfort or pain of your disease from interfering with the things you want to do? Select Number: 7 Emotional Distress: How confident are you that you can keep the emotional distress caused by your disease from interfering with the things you want to do? Select Number: 5 Other Symptoms or Health Problems: How confident are you that you can keep other symptoms or health problems from interfering with the things you want to do? Select Number: 7 Different Tasks and Activities: How confident are you that you can do the different tasks and activities needed to manage your health condition so as to reduce your need to see a doctor? Select Number: 5 Medication: How confident are you that you can do things other than just taking medication to reduce how much your illness affects your everyday life? Select Number: 8 Total Score:: 6 Nutrition Survey
[2023-01-14 08:46] VITALS: BP 148/80; BMI 38.2
== END 2023-01-25 23:59 ==
LOC: CR 10:30
PROVIDERS: PCP Family Medicine; Referring Provider Internal Medicine Cardiovascular Disease; Visit Provider Internal Medicine Cardiovascular Disease
DX: I25.10 Atherosclerotic heart disease of native coronary artery without angina pectoris (principal); I25.2 Old myocardial infarction; Z95.5 Presence of coronary angioplasty implant and graft
CPT/HCPCS: 93798

== ENCOUNTER 2023-01-01 13:49 | Observation (INO) | payer MEDICAID, SELFPAY ==
[2022-12-18 12:30] VITALS: BMI 38.1
[2023-01-01] VITALS (9 sets, daily range): BP systolic 127–148; BP diastolic 84–97; PULSE 69–89; RESP 14–20; TEMP 36.2–36.7; O2SAT 96–98; BMI 39.2; BMI 38.5
--- NOTE | 2023-01-01 14:12 | RAD_ITS ---
INDICATION: chest pain EXAMINATION/TECHNIQUE: X-RAY - portable upright AP chest x-ray COMPARISON: 10/29/2022 FINDINGS: LINES/DEVICES: None. LUNGS: No consolidation, edema or effusion. No pneumothorax. MEDIASTINUM AND CARDIOVASCULAR STRUCTURES: Cardiac silhouette not enlarged. Central airways and mediastinal contour are unremarkable. BONES AND SOFT TISSUES: Unremarkable. RAD/Chest 1 View (Portable) IMPRESSION: No radiographic evidence of acute cardiopulmonary disease. Electronically Signed: Edwardo Ogden MD at 15:40 EST ,
--- NOTE | 2023-01-01 14:16 | EKG12_ITS ---
Test Reason : CP Blood Pressure : / mmHG Vent. Rate : 078 BPM Atrial Rate : 078 BPM P-R Int : 192 ms QRS Dur : 100 ms QT Int : 398 ms P-R-T Axes : 017 157 014 degrees QTc Int : 453 ms Normal sinus rhythm Left posterior fascicular block Inferior infarct , age undetermined Cannot rule out Anterior infarct , age undetermined Abnormal ECG Confirmed by GITA JUAREZ, ROCIO ([id number]), communications editor OPAL GUERRERO ([id number]) on 01/03/2023 8:56:58 AM Referred By: CARLOS Confirmed By:ROCIO PELAYO MD
--- NOTE | 2023-01-01 14:17 | ED.VIS.CHEST ---
HPI History of Present Illness Chief Complaint: Chest Pain Detail of Chief Complaint: Chest pain Informant: patient Onset/Context/Timing Onset: Yesterday Current Severity: 01/04 Narrative Narrative: Patient presents with chest pain that started yesterday around noon. Patient's had intermittent pain that lasts up to about 10 minutes at a time. Patient states the pain radiates to his back. He has had some mild nausea and some mild lightheadedness. Patient states he has had similar pains in the past. Tells me he had a cardiac stent placed in August 2022. At that time his EKG was unremarkable apparently. Patient denies recent travel or surgery. No history of PE or DVT. He did take a full dose aspirin today. Patient currently rates pain a 3 out of 10. Patient describes pain is more achy and some tightness. [facility] Medical History (Updated 01/01/23 @ 15:[address] Mina Clinton, ) Anxiety Atherosclerosis of coronary artery without angina pectoris Bradycardia Cataract Depression Diabetes Diabetes mellitus type II, uncontrolled Essential hypertension Gastroesophageal reflux History of anxiety History of non-ST elevation myocardial infarction (NSTEMI) (08/28/22) Hyperlipidemia Hypothyroidism Kidney stones Obesity Obesity Substance abuse Home Medications nitroglycerin 0.4 mg sublingual tablet 0.4 mg sublingual Q5M PRN Cardiac/Chest Pain #30 tabs 04/25/21 [Rx Last Taken Unknown] levothyroxine 25 mcg tablet 25 tablet PO DAILY THYROID 07/20/21 [History Last Taken 2 Days Ago ~08/26/22] pen needle, diabetic 31 gauge x 15/64 #50 ea 07/20/21 [History Last Taken Unknown] OneTouch Verio Flex meter (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 meter) #1 ea 09/04/21 [Rx Last Taken Unknown] OneTouch Verio test strips (blood sugar diagnostic) #450 ea 09/04/21 [Rx Last Taken Unknown] FreeStyle Lite Strips (blood sugar diagnostic) #100 ea 09/06/21 [Rx Last Taken Unknown] albuterol sulfate 90 mcg/actuation aerosol inhaler (Ventolin HFA) 2 puff inhalation Q4H PRN PRN Wheezing ##1 12/20/21 [Rx Last Taken Unknown] aspirin 81 mg chewable tablet 81 mg PO BREAKFAST [facility] 08/28/22 [History Last Taken 08/28/22] atorvastatin 40 mg tablet 40 mg PO DAILY CHOLESTEROL 08/28/22 [History Last Taken 08/28/22] insulin aspart U-100 100 unit/mL (3 mL) subcutaneous pen 15 unit subcut TIDCM DIABETES 08/28/22 [History Last Taken 08/27/22] insulin glargine 100 unit/mL (3 mL) subcutaneous pen 26 unit subcut DAILY DIABETES 08/28/22 [History Last Taken 08/27/22] isosorbide mononitrate 30 mg tablet,extended release 24 hr 30 mg PO DAILY ANGINA 08/28/22 [History Last Taken 08/28/22] lisinopril 20 mg tablet 20 mg PO DAILY BLOOD PRESSURE 08/28/22 [History Last Taken 08/28/22] metoprolol succinate 25 mg tablet,extended release 24 hr 25 mg PO DAILY BLOOD PRESSURE 08/28/22 [History Last Taken 08/28/22] omeprazole 20 mg capsule,delayed release 20 mg PO DAILY GERD 08/28/22 [History Last Taken 2 Days Ago ~08/26/22] dulaglutide 1.5 mg/0.5 mL subcutaneous pen injector (Trulicity) 1.5 mg (0.5 mL) subcut QWEEK #2 mL 11/01/22 [Rx Last Taken Unknown] flash glucose sensor (FreeStyle Ximena 2 Sensor kit) #6 ea 11/01/22 [Rx Last Taken Unknown] pen needle, diabetic 31 gauge x 1/4 #120 ea 11/01/22 [Rx Last Taken Unknown] diclofenac sodium 20 mg/gram/actuation (2 %) topical soln metered-dose pump (Pennsaid) 2 pump topical BID #112 grams 11/15/22 [Rx Last Taken Unknown] clopidogrel 75 mg tablet (Plavix) 75 mg PO DAILY #90 tabs 12/27/22 [Rx Last Taken Unknown] Allergy/AdvReac Type Severity Reaction Status Date / Time No Known Allergies Allergy Verified 01/01/23 13:52 Surgical History History of coronary artery stent placement (08/28/22) History of coronary artery stent placement (~08/29/22) History of right coronary artery stent placement (08/28/22) Social History household members: family housing: house Smoking Status: Former smoker alcohol intake: never substance use type: marijuana caffeine: Yes Type: carbonated beverages Number of servings: 8 and coffee Number of servings: 1 what type of physical activity do you participate in: none ROS ROS ED Review of Systems ROS Unobtainable: other Constitutional Constitutional ED: Reports lethargy; Denies chills, fever(s), sweats or weight loss Eyes Eyes: Denies blurry vision, change in vision or diplopia ENT ENT ED: Denies rhinorrhea or sore throat Cardiovascular Cardiovascular: Reports chest pain; Denies orthopnea or racing heartbeat Respiratory/Chest Respiratory/Chest: Denies cough, dyspnea, dyspnea on exertion, orthopnea or sputum Gastrointestinal Gastrointestinal: Denies abdominal pain, diarrhea, nausea or vomiting Genitourinary Genitourinary ED: Denies dysuria, hematuria or urinary frequency Musculoskeletal Musculoskeletal: Denies arthralgias, back pain, myalgias or neck pain Integumentary Denies abscess, Abrasions or rash Neurologic Neurologic: Denies headache(s) or weakness Psychiatric Psychiatric: Denies anxiety, depression or suicidal thoughts Endocrine Endocrinology: Denies polydipsia, polyphagia or polyuria Hematologic/Lymphatic Hematologic/Lymphatic: Denies easy bleeding, easy bruising or lymphadenopathy Allergic/Immunologic Allergic/Immunologic ED: Denies mouth swelling, tongue swelling or urticaria EXAM Physical Exam Const Vital Signs: 01/01/23 13:50 01/01/23 14:03 01/01/23 14:22 Temperature 97.1 F L Temperature Source Temporal Pulse Rate 89 Respiratory Rate 18 Respiratory Effort Normal Non-Labored Blood Pressure 134/92 H Blood Pressure Mean 106 Pulse Ox 98 97 Oxygen Delivery Method Room Air Room Air Positive well nourished and well developed General Appearance ED: well developed and NAD HEENT Reports TM's clear and moist mucous membranes normocephalic and atraumatic; Negative for trauma or tenderness Tympanic Membrane ED: Yes TM's clear Eyes PERRL and EOMs intact bilaterally General Eye ED: Negative for pale conjunctiva or scleral icterus Neck no lymphadenopathy, supple and no JVD General: Negative for tenderness Chest Wall inspection of chest normal and palpation of chest normal Chest: Negative for tenderness Resp normal respiratory effort and clear to auscultation bilaterally Effort and Inspection: Negative for respiratory distress or pain with movement Auscultation: Negative for rhonchi, wheezes or diminished lung sounds Cardio regular rate, regular rhythm, S1 normal heart sound, S2 normal heart sound and no murmurs Peripheral Pulses: pulses 2+ throughout GI normal to inspection, nondistended, normoactive bowel sounds, soft to palpation, non-tender, non-distended and no masses Back/Spine no CVA tenderness and no thoracic nor lumbar tenderness Extremity normal to inspection General Extremety ED: Negative for edema General Extremity: Negative for edema Neuro oriented x3, CN's II-XII intact bilaterally, no sensory deficits noted and gait normal Sensorium / Orientation: awake, alert, oriented to person, oriented to place and oriented to time Motor Exam: strength 5/5 throughout and strength abnormal Psych mental status grossly normal Skin no rashes or lesions noted and no wounds Heart Score History: Moderately Suspicious ECG: Nonspecific Repolarization Age: >45 - <65 years Risk Factors: >/= 3 Risk Factors or History of CAD Troponin: </= Normal Limit Score: 5 MDM MDM MDM Narrative Medical decision making narrative: Patient presents with chest pain since yesterday that is similar to what he had when he required heart catheterization and intervention in August 2022. Patient refused nitroglycerin here in the department and he had already taken full dose aspirin at home. Patient's current pain is 3 out of 10 and just describes it is very mild. EKG showed a sinus rhythm with old inferior infarct and otherwise nonspecific ST changes. No change from prior EKG. CBC with differential is unremarkable. Chemistries unremarkable. D-dimer was normal. Troponin was normal at 5. 1 view chest x-ray obtained interpreted by myself as no acute disease process. Patient is high risk with known history of coronary artery disease and has a heart score of 5. Discussed case with hospitalist who will evaluate patient for admission for cardiac rule out. Lab Data Attestation: I reviewed the patient's lab results. Labs: Laboratory Results - last 24 hr 01/01/23 01/01/23 01/01/23 13:55 13:55 13:55 WBC 7.8 RBC 5.57 Hgb 16.7 H Hct 50.1 MCV 89.9 MCH 30.0 MCHC 33.3 RDW Std Deviation 42.0 RDW Coeff of Elias 12.7 Plt Count 248 MPV 10.6 Immature Gran % (Auto) 0.400 Neut % (Auto) 75.1 H Lymph % (Auto) 13.1 L Faulkner % (Auto) 9.6 Eos % (Auto) 1.4 Baso % (Auto) 0.4 Absolute Neuts (auto) 5.9 Absolute Lymphs (auto) 1.03 Nucleated RBC % 0 D-Dimer Quant (PE/DVT) 0.45 Sodium 135 L Potassium 3.9 Chloride 101 Carbon Dioxide 27.0 Anion Gap 7 BUN 15 Creatinine 1.08 Estim Creat Clear Calc 90.06 Est GFR (MDRD) Af Amer 94 Est GFR (MDRD) Non-Af 78 BUN/Creatinine Ratio 13.9 Glucose 151 H Calcium 9.1 Troponin I High Sens 5 Radiography Chest X-Ray - ED: 1 View Diagnostic Testing: View chest x-ray obtained interpreted by myself as no infiltrate and no evidence of pneumothorax. No acute disease process. Official report from radiology pending. EKG Initial EKG: Attestation: I personally reviewed and interpreted this EKG as follows: Comments: Sinus rhythm with a rate of 78 bpm with old inferior infarct otherwise no acute ST segment changes Prior EKG tracings: available for review Prior: Unchanged Differential Diagnosis Chest pain/SOB: pulmonary embolism, ACS and pneumothorax Management Discussion w/another healthcare provider: Hospitalist Discharge Plan Triage Chief Complaint: Chest Pain ED Provider: Mina Clinton Dx/Rx/DC Orders Clinical Impression: Chest pain, Coronary artery disease, Hypertension Prescriptions: No Action levothyroxine 25 mcg tablet 25 tablet PO DAILY (DME) pen needle, diabetic 31 gauge x 15/64 needle See Rx Instructions .ROUTE .MEDSUPPLY Qty: 50 Rx Instructions: As directed (DME) 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 meter [OneTouch Verio Flex meter] [facility] [place], [place] See Rx Instructions .ROUTE .MEDSUPPLY Qty: 1 0RF Rx Instructions: As directed (DME) OneTouch Verio test strips Strip See Rx Instructions .ROUTE .MEDSUPPLY Qty: 450 3RF Rx Instructions: 5x/day (DME) FreeStyle Lite Strips Strip See Rx Instructions .ROUTE .MEDSUPPLY Qty: 100 6RF Rx Instructions: 4x/day Trulicity 1.5 mg/0.5 mL pen injector 1.5 mg subcut QWEEK Qty: 2 5RF (DME) pen needle, diabetic 31 gauge x 1/4 needle See Rx Instructions .ROUTE .MEDSUPPLY Qty: 120 6RF Rx Instructions: 4x/day (DME) FreeStyle Ximena 2 Sensor Kit See Rx Instructions .Route Qty: 6 1RF Rx Instructions: 1 sensor q 14 days diclofenac sodium [Pennsaid] 20 mg/gram /actuation(2 %) solution in metered-dose pump 2 pump topical BID Qty: 112 0RF Rx Instructions: apply to shoulders nitroglycerin 0.4 mg Tablet, Sublingual 0.4 mg sublingual Q5M PRN (Reason: Cardiac/Chest Pain) Qty: 30 0RF albuterol sulfate [Ventolin HFA] 1 INHALER inhaler 2 puff inhalation Q4H PRN PRN (Reason: Wheezing) Qty: 1 0RF Rx Instructions: dispense with spacer please atorvastatin 40 mg tablet 40 mg PO DAILY lisinopril 20 mg tablet 20 mg PO DAILY isosorbide mononitrate 30 mg tablet extended release 24 hr 30 mg PO DAILY Rx Instructions: Hold for SBP less than 110 mmHg omeprazole 20 mg capsule,delayed release(DR/EC) 20 mg PO DAILY aspirin 81 mg tablet,chewable 81 mg PO BREAKFAST metoprolol succinate 25 mg tablet extended release 24 hr 25 mg PO DAILY insulin aspart U-100 100 unit/mL (3 mL) insulin pen 15 unit subcut TIDCM insulin glargine 100 unit/mL (3 mL) insulin pen 26 unit subcut DAILY clopidogrel [Plavix] 75 mg tablet 75 mg PO DAILY Qty: 90 3RF Primary Care Provider: Darinel Armstrong Referrals: Darinel Armstrong MD [Primary Care Provider] - Disposition Disposition: Acute Care Hospital [facility]
[2023-01-01] MEDS: 0.9% Normal Saline 1,000 ML 150 ML IV (14:30)
--- NOTE | 2023-01-01 14:30 | ED.RN ---
PT COMPLAINS OF 5/10 CHEST PAIN, NOW STATES HE DOES NOT WANT TO TAKE NITROGLYCERIN DUE TO AN EXISTING SLIGHT HEADACHE. NITRO WITHHELD AT TIME.
[2023-01-01 14:32] LABS: Absolute Lymphocyte Count 1.03 X10^3/uL (0.83-4.51); Absolute Neutrophil Count 5.9 X10^3/uL (2.0-7.7); Basophil# 0.03 X10^3/uL; Basophil% 0.4 % (0-1); Eosinophil# 0.11 X10^3/uL; Eosinophils% 1.4 % (0-5); Hematocrit 50.1 % (40-54); Hemoglobin 16.7 g/dL (13.0-16.5); Lymphocyte # 1.03 X10^3/ul (0.83-4.51); Lymphocyte % 13.1 % (19-41); Mean Corp Hgb Conc 33.3 g/dL (32-36); Mean Corpuscular Volume 89.9 fL (80-94); Mean Platelet Vol. 10.6 fl (6.2-12.0); Monocyte# 0.75 X10^3/uL; Monocyte% 9.6 % (0-10); NRBC Flagged by Analyzer 0 % (0-5); Neutrophil # 5.89 X10^3/uL (2.7-7.7); Neutrophil % 75.1 % (47-70); Platelet Count 248 K/mm3 (150-450); RBC Distribution Width CV 12.7 % (11.6-14.6); Red Blood Count 5.57 M/mm3 (4.6-6.2); White Blood Count 7.8 K/mm3 (4.4-11.0)
[2023-01-01 14:45] LABS: D-Dimer Quantitative (DVT/PE) 0.45 FEU/ug/m (0.27-0.49)
[2023-01-01 14:52] LABS: Anion Gap 7 (5-15); BUN 15 mg/dL (7-18); BUN/Creat Ratio 13.9 RATIO (10-20); Calcium,Total 9.1 mg/dL (8.5-10.1); Chloride 101 mmol/L (98-107); Creatinine, Serum 1.08 mg/dL (0.70-1.30); EST Glomerular Filtration Rate 78 mL/min (>60); Est Glom Filt Rate - Afr Amer 94 mL/min (>60); Estimated Creatinine Clearance 90.06 ml/min; Glucose 151 mg/dL (74-106); Potassium 3.9 mmol/L (3.5-5.1); Sodium Level 135 mmol/L (136-145); Troponin-I HS (w/2H Reflex) 5 pg/mL (3.0-78.0)
--- NOTE | 2023-01-01 15:06 | HP.PCM.HOS_ITS ---
HPI - General General Date of Admission: 01/01/23 Date of Service: 01/01/23 Chief Complaint: Chest discomfort HPI Narrative MICHAEL NAVA, is a 47 M medical history second for coronary artery disease with previous PCI with stent placement to the mid LAD and the circumflex lesion in August 2022 who presents with chest discomfort. Patient symptoms started a day prior to coming in. Discomfort was located in the retrosternal region rad iating to his back. Patient states symptoms similar to what he experienced in August prior to his stent placement. Was seen in the emergency department initial set of enzymes and cardiac enzymes came back negative however given his significant risk factors was admitted to a monitored bed for further management [facility] Medical History Anxiety Atherosclerosis of coronary artery without angina pectoris Bradycardia Cataract Depression Diabetes Diabetes mellitus type II, uncontrolled Essential hypertension Gastroesophageal reflux History of anxiety History of non-ST elevation myocardial infarction (NSTEMI) (08/28/22) Hyperlipidemia Hypothyroidism Kidney stones Obesity Obesity Substance abuse Home Medications levothyroxine 25 mcg tablet 25 tablet PO DAILY THYROID 07/20/21 [History Last Taken 2 Days Ago ~08/26/22] pen needle, diabetic 31 gauge x 15/64 #50 ea 07/20/21 [History Last Taken Unknown] OneTouch Verio Flex meter (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 meter) #1 ea 09/04/21 [Rx Last Taken Unknown] OneTouch Verio test strips (blood sugar diagnostic) #450 ea 09/04/21 [Rx Last Taken Unknown] FreeStyle Lite Strips (blood sugar diagnostic) #100 ea 09/06/21 [Rx Last Taken Unknown] aspirin 81 mg chewable tablet 81 mg PO BREAKFAST HEART HEALTH 08/28/22 [History Last Taken 08/28/22] atorvastatin 40 mg tablet 40 mg PO DAILY CHOLESTEROL 08/28/22 [History Last Taken 08/28/22] insulin glargine 100 unit/mL (3 mL) subcutaneous pen 26 unit subcut DAILY CARROLL BETES 08/28/22 [History Last Taken 08/27/22] isosorbide mononitrate 30 mg tablet,extended release 24 hr 30 mg PO DAILY ANGINA 08/28/22 [History Last Taken 08/28/22] lisinopril 20 mg tablet 20 mg PO DAILY BLOOD PRESSURE 08/28/22 [History Last Taken 08/28/22] metoprolol succinate 25 mg tablet,extended release 24 hr 25 mg PO DAILY BLOOD PRESSURE 08/28/22 [History Last Taken 08/28/22] omeprazole 20 mg capsule,delayed release 20 mg PO DAILY GERD 08/28/22 [History Last Taken 2 Days Ago ~08/26/22] flash glucose sensor (FreeStyle Ximena 2 Sensor kit) #6 ea 11/01/22 [Rx Last Taken Unknown] pen needle, diabetic 31 gauge x 1/4 #120 ea 11/01/22 [Rx Last Taken Unknown] albuterol sulfate 90 mcg/actuation aerosol inhaler (Ventolin HFA) 2 puff inhalation Q4H PRN WHEEZING 01/01/23 [History Last Taken Unknown] clopidogrel 75 mg tablet (Plavix) 75 mg PO DAILY BLOOD THINNER 01/01/23 [History Last Taken 01/01/23] diclofenac sodium 20 mg/gram/actuation (2 %) topical soln metered-dose pump (Pennsaid) 2 pump topical BID PRN SHOULDER PAIN 01/01/23 [History Last Taken Unknown] dulaglutide 1.5 mg/0.5 mL subcutaneous pen injector (Trulicity) 1.5 mg subcut TU DIABETES 01/01/23 [History Last Taken 12/25/22] fluticasone propionate 50 mcg/actuation nasal spray,suspension 2 spray intranasal DAILY NASAL CONGESTION 01/01/23 [History Last Taken 01/01/23] insulin aspart U-100 100 unit/mL (3 mL) subcutaneous pen (Novolog FlexPen U-100 Insulin aspart) 18 unit subcut TIDCM DIABETES 01/01/23 [History Last Taken 03/19] loratadine 10 mg tablet 10 mg PO DAILY ALLERGIES 01/01/23 [History Last Taken 01/01/23] nitroglycerin 0.4 mg sublingual tablet 0.4 mg sublingual Q5M PRN CHEST PAIN 01/01/23 [History Last Taken Unknown] Allergy/AdvReac Type Severity Reaction Status Date / Time No Known Allergies Allergy Verified 01/01/23 13:52 Family History (Updated 01/01/23 @ 15:[address] Tomasz Urbina MD) Father Myocardial infarction Surgical History History of coronary artery stent placement (08/28/22) History of coronary artery stent placement (~08/29/22) History of right coronary artery stent placement (08/28/22) Social History household members: family housing: house Smoking Status: Former smoker alcohol intake: never substance use type: marijuana caffeine: Yes Type: carbonated beverages Number of servings: 8 and coffee Number of servings: 1 what type of physical activity do you participate in: none ROS ROS Narrative GENERAL: denies fever, chills, night sweats, weight loss, anorexia HEENT: denies headache, sinus congestion, or drainage, dysphagia RESPIRATORY: denies cough, sputum production, shortness of breath, CARDIAC: denies palpitations, orthopnea, PND GASTROINTESTINAL: denies abdominal pain, nausea, vomiting, melena, GENITOURINARY: denies dysuria, urgency, frequency, heamaturia EXTREMITY: denies swelling MUSCULOSKELETAL: denies current joint pain or tenderness NEUROLOGIC: denies focal numbness, weakness, tingling HEMATOLOGIC: denies easy bruising and/or hemorrhage INTEGUMENT: denies rashes PSYCHIATRIC: denies suicidal or homicidal ideation Vital Signs Vital Signs Vital Signs: 01/01/23 13:50 01/01/23 14:03 01/01/23 14:22 Temperature 97.1 F L Temperature Source Temporal Pulse Rate 89 Respiratory Rate 18 Respiratory Effort Normal Non-Labored Blood Pressure 134/92 H Blood Pressure Mean 106 Pulse Ox 98 97 Oxygen Delivery Method Room Air Room Air Weight Weight: 127.459 kg Body Mass Index (BMI) 39.2 Physical Exam Narrative GENERAL: cooperative HEENT: Atraumatic; normocephalic EYES; Anicteric, Normal Conjunctiva NECK; supple, normal thyroid, RESPIRATORY: Diminished to auscultation CARDIOVASCULAR: Regular S1 S2, GI: soft, normoactive bowel sounds, : No Renal angle tenderness; EXTREMITIES: No edema, no clubbing, MUSCULOSKELETAL: no muscle wasting NEURO: Awake; no lateralizing signs. SKIN: No Rash PSYCH; Flat affect Results Lab / Micro Data Result Diagrams: 01/01/23 13:55 01/01/23 13:55 Labs: Laboratory Results - last 24 hr 01/01/23 13:55: WBC 7.8, RBC 5.57, Hgb 16.7 H, Hct 50.1, MCV 89.9, MCH 30.0, MCHC 33.3, RDW Std Deviation 42.0, RDW Coeff of Elias 12.7, Plt Count 248, MPV 10.6, Immature Gran % (Auto) 0.400, Neut % (Auto) 75.1 H, Lymph % (Auto) 13.1 L, [place] % (Auto) 9.6, Eos % (Auto) 1.4, Baso % (Auto) 0.4, Absolute Neuts (auto) 5.9, Absolute Lymphs (auto) 1.03, Nucleated RBC % 0 01/01/23 13:55: D-Dimer Quant (PE/DVT) 0.45 01/01/23 13:55: Sodium 135 L, Potassium 3.9, Chloride 101, Carbon Dioxide 27.0, Anion Gap 7, BUN 15, Creatinine 1.08, Estim Creat Clear Calc 90.06, Est GFR (MDR D) Af Amer 94, Est GFR (MDRD) Non-Af 78, BUN/Creatinine Ratio 13.9, Glucose 151 H, Calcium 9.1, Troponin I High Sens 5 Assessment & Plan Assessment/Plan (1) Coronary artery disease: (2) Chest pain: PLAN: Plan Patient is a 47-year-old gentleman with known coronary artery disease presented with chest discomfort 1. Chest pain ? Consistent with unstable angina patient has significant risk factors including prior coronary artery disease with stent placement hypertension dyslipidemia as well as diabetes mellitus type 2. Patient has been admitted to monitored bed treatment initiated per protocol with beta-blockers dual antiplatelet therapy low molecular weight and statin therapy. Consult placed to Dr. Adams with cardiology 2. Coronary artery disease ? With previous PCI last being in August 2022 where he underwent PCI with [place] to left circumflex lesion as well as OM1 3. Dyslipidemia -Patient is on statin therapy, continued at home dose 4. Hypertension - Blood pressure controlled, home medications continued with dose adjustment as needed 5. Diabetes mellitus type 2 ? Held oral medication please on his long-acting insulin in addition to scheduled short acting insulin as well as Accu-Cheks before meals and at bedtime with sliding scale insulin coverage 6. Class II obesity with BMI of 39.2 ? Weight loss advised 7. Mild intermittent asthma ? Aerosol treatments as needed 8. GERD ? Patient is on PPI did continue 9. Hypothyroidism - Patient is on levothyroxine home dose continued 10. DVT prophylaxis ? Patient is on low molecular weight heparin Time spent in the patient's overall evaluation,decision-making process, review of diagnostic data, adjustment of management, discussion with other providers, nursing nursing and ancillary staff involved in patient's care documentation, 77 minutes Charges/Coding Visit Charges Inpatient E&M: 17219 Init Hosp L3
--- NOTE | 2023-01-01 15:08 | NURSING ---
DR ANNY AMAYA
--- NOTE | 2023-01-01 15:13 | NURSING ---
PCU OBS KITTOE CHEST PAIN, HTN, HX OF CAD
--- NOTE | 2023-01-01 16:04 | EKG12_ITS ---
Test Reason : CP Blood Pressure : / mmHG Vent. Rate : 056 BPM Atrial Rate : 056 BPM P-R Int : 192 ms QRS Dur : 110 ms QT Int : 436 ms P-R-T Axes : 020 046 026 degrees QTc Int : 420 ms Sinus bradycardia Inferior infarct , age undetermined , cannot be excluded Poor R wave progression Abnormal ECG Confirmed by GITA JUAREZ, ROCIO ([id number]), science editor OPAL GUERRERO ([id number]) on 01/03/2023 9:09:10 AM Referred By: Confirmed By:ROCIO PELAYO MD
[2023-01-01 16:27] LABS: Reflex Troponin-HS? (from REC) Y
[2023-01-01] MEDS: Pantoprazole Sodium 20 MG Tablet PO (17:04)
[2023-01-01 17:20] LABS: Bedside Glucose 128 mg/dL (74-106)
[2023-01-01 18:01] LABS: Troponin-I HS 5 pg/mL (3.0-78.0)
--- NOTE | 2023-01-01 18:14 | PCM.CONS.C ---
Assessment & Plan Assessment/Plan (1) Unstable angina: PLAN: The patient presents with symptoms compatible with unstable angina pectoris. He states his symptoms are the same symptoms he had prior to his most recent PCI procedures. He has been compliant with his medications. He has been undergoing noninvasive valuation with the findings as noted above. At the present time he will continue to be observed. However, based upon his recurrent symptoms superimposed upon his previously diagnosed underlying cardiovascular disease status it was thought reasonable that the patient undergo reevaluation in the cardiac catheterization laboratory. The procedure and risk were discussed with him. He was agreeable to this approach. (2) Coronary artery disease: PLAN: The patient has a history of underlying CAD. This is premature CAD. He has undergone medical management and PCI procedures in the past. He now presents with symptoms concerning for unstable angina pectoris similar to the symptoms he has had before that led to his previous PCI procedures. His rule out RI protocol was negative thus far with respect to his cardiac enzymes and ECG. He will continue to be observed. His noninvasive studies will be followed. He will continue medical therapy. He has been recommended for further evaluation with repeat diagnostic cardiac catheterization as described above. (3) S/P PTCA (percutaneous transluminal coronary angioplasty): PLAN: The patient's most recent PCI procedure was reviewed. He did receive PCI to the LAD and LCx distribution. He will continue to be observed. He will continue medical therapy. He will proceed with further evaluation with diagnostic cardiac catheterization as noted above. (4) Essential hypertension: PLAN: The patient's blood pressure will need to be monitored. Depending upon his blood pressure recordings he may need further adjustment of his medications. Addt'l Comments The above was discussed and reviewed with the patient and his family members present. Comment: Time spent in the patient's evaluation, examination, review of his medical records, review of radiologic studies, review of cardiovascular imaging studies, placing orders, documentation, discussion with the patient and his family members, etc.: 45 minutes. HPI Consult Data Date of Consult: 01/01/23 HPI Narrative HPI Narrative: MICHAEL NAVA, is a 47 year old white male who presents for cardiovascular consultation for unstable angina superimposed upon a history of underlying premature CAD status post PTCA/stenting procedures, hyperlipidemia, and diabetes mellitus who has been previously followed by Dr. Harrison. He underwent evaluation on 08-29-2022 at [facility] in the cardiac catheterization laboratory for concerns of unstable angina pectoris. At that point in time he was found to have progression of his cachil dehe vessel disease and previous LAD stent as well as his previous LCx stent. He subsequently underwent additional PCI to the LAD and the LCx system. He states he did well with respect to not having any obvious recurrence of his chest discomfort until yesterday. He states since yesterday he has had waxing and waning discomfort in his sternal area that radiates towards his back. It is not necessarily associated with ongoing nausea or emesis or dyspnea. He states it can be associated with diaphoresis. This discomfort has been happening at rest. At the same time he denies any obvious orthopnea or PND or peripheral pitting edema. He denies any syncope. He notes that his symptoms are similar to the symptoms he had prior to his most recent PCI procedure. He does state if he gets up quickly he can feel lightheaded and dizzy and as if he may want to lose consciousness but he has not. He states he was evaluated by his primary care physician for concerns of a generalized feeling of being dizzy and was thought to be related to an underlying sinus infection for which she was treated with antibiotics. However he states this did not seem to make a significant difference in his sensations. Based upon his ongoing symptoms he presented to the [facility] emergency department for evaluation. His initial high-sensitivity troponin I level was negative. His ECG demonstrated the appearance of underlying sinus rhythm with a right axis deviation with a left posterior fascicular block pattern and poor R wave progression and an anterior my of indeterminate age cannot be excluded. His chest x-ray was reviewed. It appeared to be a portable film. It did not appear to suggest any acute cardiopulmonary abnormality. He was placed in the PCU for further evaluation and care. He is remained in sinus rhythm. He states he is resting comfortably at this time. He has been continued on medical therapy. This appears to include aspirin, clopidogrel, isosorbide mononitrate, metoprolol XL, lisinopril, and atorvastatin superimposed upon his underlying diabetic medication regimen. He has also been placed on anticoagulant therapy with subcutaneous enoxaparin. [facility] Medical History Anxiety Atherosclerosis of coronary artery without angina pectoris Bradycardia Cataract Depression Diabetes Diabetes mellitus type II, uncontrolled Essential hypertension Gastroesophageal reflux History of anxiety History of non-ST elevation myocardial infarction (NSTEMI) (08/28/22) Hyperlipidemia Hypothyroidism Kidney stones Obesity Obesity Substance abuse Home Medications levothyroxine 25 mcg tablet 25 tablet PO DAILY THYROID 07/20/21 [History Last Taken 01/01/23] pen needle, diabetic 31 gauge x 15/64 #50 ea 07/20/21 [History Last Taken Unknown] OneTouch Verio Flex meter (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 meter) #1 ea 09/04/21 [Rx Last Taken Unknown] OneTouch Verio test strips (blood sugar diagnostic) #450 ea 09/04/21 [Rx Last Taken Unknown] FreeStyle Lite Strips (blood sugar diagnostic) #100 ea 09/06/21 [Rx Last Taken Unknown] aspirin 81 mg chewable tablet 81 mg PO BREAKFAST [facility] HE[facility] 08/28/22 [History Last Taken 01/01/23] atorvastatin 40 mg tablet 40 mg PO DAILY CHOLESTEROL 08/28/22 [History Last Taken 01/01/23] insulin glargine 100 unit/mL (3 mL) subcutaneous pen (Lantus Solostar U-100 Insulin) 26 unit subcut DAILY DIABETES 08/28/22 [History Last Taken 01/01/23] isosorbide mononitrate 30 mg tablet,extended release 24 hr 30 mg PO DAILY ANGINA 08/28/22 [History Last Taken 01/01/23] lisinopril 20 mg tablet 20 mg PO DAILY BLOOD PRESSURE 08/28/22 [History Last Taken 01/01/23] metoprolol succinate 25 mg tablet,extended release 24 hr 25 mg PO DAILY BLOOD PRESSURE 08/28/22 [History Last Taken 01/01/23] omeprazole 20 mg capsule,delayed release 20 mg PO DAILY GERD 08/28/22 [History Last Taken 01/01/23] flash glucose sensor (FreeStyle Ximena 2 Sensor kit) #6 ea 11/01/22 [Rx Last Taken Unknown] pen needle, diabetic 31 gauge x 1/4 #120 ea 11/01/22 [Rx Last Taken Unknown] albuterol sulfate 90 mcg/actuation aerosol inhaler (Ventolin HFA) 2 puff inhalation Q4H PRN WHEEZING 01/01/23 [History Last Taken Unknown] clopidogrel 75 mg tablet (Plavix) 75 mg PO DAILY BLOOD THINNER 01/01/23 [History Last Taken 01/01/23] diclofenac sodium 20 mg/gram/actuation (2 %) topical soln metered-dose pump (Pennsaid) 2 pump topical BID PRN SHOULDER PAIN 01/01/23 [History Last Taken Unknown] dulaglutide 1.5 mg/0.5 mL subcutaneous pen injector (Trulicity) 1.5 mg subcut TU DIABETES 01/01/23 [History Last Taken 12/25/22] fluticasone propionate 50 mcg/actuation nasal spray,suspension 2 spray intranasal DAILY NASAL CONGESTION 01/01/23 [History Last Taken 01/01/23] insulin aspart U-100 100 unit/mL (3 mL) subcutaneous pen (Novolog FlexPen U-100 Insulin aspart) 18 unit subcut TIDCM DIABETES 01/01/23 [History Last Taken 12/30/22] loratadine 10 mg tablet 10 mg PO DAILY ALLERGIES 01/01/23 [History Last Taken 01/01/23] nitroglycerin 0.4 mg sublingual tablet 0.4 mg sublingual Q5M PRN CHEST PAIN 01/01/23 [History Last Taken Unknown] Allergy/AdvReac Type Severity Reaction Status Date / Time No Known Allergies Allergy Verified 01/01/23 13:52 Family History (Updated 01/01/23 @ 15:[address] Tomasz Urbina MD) Father Myocardial infarction Surgical History History of coronary artery stent placement (08/28/22) History of coronary artery stent placement (~08/29/22) History of right coronary artery stent placement (08/28/22) Social History household members: family housing: house Smoking Status: Never smoker alcohol intake: never substance use type: marijuana caffeine: Yes Type: carbonated beverages Number of servings: 8 and coffee Number of servings: 1 what type of physical activity do you participate in: none ROS Constitutional Constitutional: Reports as per HPI Eyes Eyes: Reports as per HPI ENT HEENT: Reports as per HPI Cardiovascular Cardiovascular: Reports chest pain at rest and diaphoresis Respiratory/Chest Respiratory/Chest: Reports as per HPI Gastrointestinal Gastrointestinal: Reports as per HPI Genitourinary Genitourinary: Reports as per HPI Musculoskeletal Musculoskeletal: Reports as per HPI Integumentary Integumentary: Reports as per HPI Neurologic Neurologic: Reports as per HPI Physical Exam Const alert, oriented x3, no apparent distress and healthy appearing Orientation / Consciousness: awake HEENT normocephalic, head/scalp atraumatic and hearing grossly normal bilaterally Eyes PERRL, EOMs intact bilaterally, conjunctivae normal and no scleral icterus Neck full ROM, supple and no JVD Carotids: normal carotid upstroke Resp normal respiratory effort and clear to auscultation bilaterally Cardio regular rate, regular rhythm, S1 normal heart sound and S2 normal heart sound Palpation: normal PMI GI normal to inspection, nondistended, normoactive bowel sounds Extremity no pedal edema Skin no rashes or lesions noted Psych mental status grossly normal Risk Stratification Risk Stratification Applicable: Yes Age >/= 65: No >/= 3 CAD Risk Factors (HTN, HLD, DM, family hx of CAD, or current smoker): Yes Aspirin Use in the Past 7 Days: Yes Severe Angina (>/= episodes in 24 hours): Yes EKG ST Changes >/= 0.5mm: No Positive Cardiac Marker: No ANT Risk Stratification Score: 3 ANT % Risk: 13% Risk Procedure Criteria Type of Procedure Procedure Type: Elective Elective Risks - COVID COVID Risk Discussion: The surgeon/proceduralist and patient have discussed in detail the risk of exposure to and/or potential harm posed by the COVID-19 virus with having a surgery/procedure at this time versus the risk of delaying the surgery/procedure. It is not possible to know either the risk of delaying the surgery or procedure or chance of getting an infection with perfect accuracy, but a joint decision was made between the patient and the surgeon/proceduralist to proceed at this time with the scheduled surgery/procedure as indicated on the consent form. Objective Data Vital Signs: Vital Signs Temp Pulse Resp BP Pulse Ox O2 Del Method 97.9 F 74 16 137/84 H 97 Room Air 01/01/23 16:00 01/01/23 16:00 01/01/23 16:00 01/01/23 16:00 01/01/23 16:25 01/01/23 16:25 Oxygen Delivery Method Room Air Weight: 276 lb 7.355 oz Body Mass Index (BMI) 38.5 Lab / Micro Data Result Diagrams: 01/01/23 13:55 01/01/23 13:55 Labs: Laboratory Results - last 24 hr 01/01/23 13:55: WBC 7.8, RBC 5.57, Hgb 16.7 H, Hct 50.1, MCV 89.9, MCH 30.0, MCHC 33.3, RDW Std Deviation 42.0, RDW Coeff of Elias 12.7, Plt Count 248, MPV 10.6, Immature Gran % (Auto) 0.400, Neut % (Auto) 75.1 H, Lymph % (Auto) 13.1 L, Bradford % (Auto) 9.6, Eos % (Auto) 1.4, Baso % (Auto) 0.4, Absolute Neuts (auto) 5.9, Absolute Lymphs (auto) 1.03, Nucleated RBC % 0 01/01/23 13:55: D-Dimer Quant (PE/DVT) 0.45 01/01/23 13:55: Sodium 135 L, Potassium 3.9, Chloride 101, Carbon Dioxide 27.0, Anion Gap 7, BUN 15, Creatinine 1.08, Estim Creat Clear Calc 90.06, Est GFR (MDRD) Af Amer 94, Est GFR (MDRD) Non-Af 78, BUN/Creatinine Ratio 13.9, Glucose 151 H, Calcium 9.1, Troponin I High Sens 5 01/01/23 16:15: POC Glucose 128 H 01/01/23 17:00: Troponin I High Sens 5 Cardiology Labs/Tests 01/01/23 13:55: WBC 7.8, RBC 5.57, Hgb 16.7 H, Hct 50.1, MCV 89.9, MCH 30.0, MCHC 33.3, Plt Count 248, MPV 10.6, Immature Gran % (Auto) 0.400, Neut % (Auto) 75.1 H, Lymph % (Auto) 13.1 L, Bradford % (Auto) 9.6, Eos % (Auto) 1.4, Baso % (Auto) 0.4, Absolute Neuts (auto) 5.9, Nucleated RBC % 0 01/01/23 13:55: D-Dimer Quant (PE/DVT) 0.45 01/01/23 13:55: Sodium 135 L, Potassium 3.9, Chloride 101, Carbon Dioxide 27.0, Anion Gap 7, BUN 15, Creatinine 1.08, Est GFR (MDRD) Af Amer 94, Est GFR (MDRD) Non-Af 78, BUN/Creatinine Ratio 13.9, Glucose 151 H, Calcium 9.1 Rhythm: Sinus rhythm EKG: As noted above ECHO: 04-21-2021 Interpretation Summary The estimated ejection fraction is EF 50-55 %. Apical hypokinesia Cardiac Cath: 08-29-2022 CONCLUSIONS Severe two-vessel disease present in both previously stented vessels in the LAD as well as the left circumflex artery distribution. RECOMMENDATIONS Referred for immediate PCI DESCRIPTION OF? PROCEDURE The patient arrived to the procedure lab. The risks and benefits of the procedure as well as a full description of our services here and current unavailability of surgical backup were fully explained to the patient and/or their significant other prior to the catheterization. The Timeout was completed, verifying the correct patient and procedure. The patient's procedural site was prepped and draped in the usual fashion. Local anesthetic was given subcutaneously to right radial region with Lidocaine 2%. Using a modified Seldinger technique, arterial access was obtained via the right radial artery, a 6Fr sheath was inserted.? Right Coronary Artery selective angiography was then performed in multiple views using a 5 Fr. 4.0 [place] catheter. Left Coronary Artery selective angiography was performed in multiple views using a 5 Fr. 4.0 [place] catheter. Left Ventriculography was performed in REA projection using a 5 Fr. Pigtail catheter. LV to AO pullback pressures were then recorded. CORONARY ANGIOGRAPHY DOMINANCE:? Right Dominant LEFT HEART ASSESSMENT Left Ventricular Ejection Fraction: by LV Gram 50 % Inferior Lateral Hypokinesis - Moderate Normal Left Ventricular systolic function LEFT MAIN: Angiographically normal LEFT ANTERIOR DESCENDING ARTERY: The LAD had a previously placed stent in the midsegment and the vessel appears to be subtotally occluded after that with ghost collateral filling. CIRCUMFLEX ARTERY: The mid circumflex artery and a previously stented vessel is noted to have a 95% stenotic lesion present. RIGHT CORONARY ARTERY: Moderate luminal irregularities up to 50% ? PCI: 08-29-2022 CONCLUSIONS Successful PTCA/KENTON Mid LAD ISR using Synergy 2.5x32 mm Successful KENTON Mid LCX into OM1 (ISR) using Synergy 3.5x38 mm RECOMMENDATIONS ASA Indefinitley Brilinta for at least 12 months DESCRIPTION OF? PROCEDURE The patient arrived to the procedure lab. The risks and benefits of the procedure as well as a full description of our services here and current unavailability of surgical backup were fully explained to the patient and/or their significant other prior to the catheterization. The Timeout was completed, verifying the correct patient and procedure. The patient's procedural site was prepped and draped in the usual fashion. Local anesthetic was given subcutaneously to right radial region with Lidocaine 2% Using a modified Seldinger technique,arterial access was obtained via the right radial artery, a 6Fr sheath was inserted. Right Coronary Artery selective angiography was then performed in multiple views using a 5 Fr. 4.0 [place] catheter. Left Coronary Artery selective angiography was performed in multiple views using a 5 Fr. 4.0 [place] catheter. Left Ventriculography was performed in REA projection using a 5 Fr. Pigtail catheter. LV to AO pullback pressures were then recorded.The images were reviewed and options discussed. A decision was then made to proceed with an Intervention, IVUS or other adjunct procedure. ? ? xb3 Guide catheter was inserted and engaged into the LCA. runthrough Guide wire was advanced to the LAD. runthrough Guide wire was advanced to the OM. nc emerge 2.5 x 30 Balloon catheter was advanced across lesion in the LAD, mid. Angiogram performed pre balloon dilatation. PTCA balloon inflated at 12 atms for 22 secs. PTCA balloon inflated at 4 atms for 16] secs. synergy 2.5 x 32 Drug Eluting stent was advanced across the lesion in the LAD, mid. Angiogram performed post stent deployment. nc emerge 2.5 x 30 Balloon catheter was inserted post stent. Angiogram performed post balloon dilatation. Guide wire was repositioned to the Circumflex synergy 3.5 x 38 Drug Eluting stent was advanced across the lesion in the circumflex, mid. Angiogram performed pre stent deployment. nc emerge 3.5 x 30 Balloon catheter was inserted post stent. Angiogram performed post balloon dilatation. ? The arterial sheath was pulled and a TR Band was applied for hemostasis INTERVENTION INFORMATION LESION SITE: LAD (Mid) Lesion Complexity: High/C, lesion length: 32 mm, culprit lesion: Yes, In-stent restenosis: Yes ?Pre Stenosis: 99 % Pre intervention ANT flow: 1 PROCEDURE: Drug Eluting Stent with pre and post dilatation Post Stenosis: 0 %? Post intervention ANT flow: 3 Lesion Devices: Cordis 6 Fr XB3.0 100cm Guide Catheter Terumo .014 Runthrough Extra Floppy 180cm straight Santosh Sci NC EMERGE MR 2.50x30 BALLOON Santosh Sci Synergy MR KENTON 2.50x32 LESION SITE: Circumflex (Mid) Lesion Complexity: High/C, lesion length: 36 mm, culprit lesion: No, In-stent restenosis: Yes ?Pre Stenosis: 95 %? Pre intervention ANT flow: 3 PROCEDURE: Drug Eluting Stent with post dilatation Post Stenosis: 0 %? Post intervention ANT flow: 3 Lesion Devices: Cordis 6 Fr XB3.0 100cm Guide Catheter Santosh Sci Synergy MR KENTON 3.50x38 Santosh Sci NC EMERGE MR 3.50x30 BALLOON Terumo .014 Runthrough Extra Floppy 180cm straight COMPLICATIONS No Complications PROCEDURE MEDICATIONS Versed 1 mg IV Fentanyl 50 mcg IV Fentanyl 50 mcg IV Fentanyl 50 mcg IV Oxygen: 2 L/min via nasal cannula Heparin given IA 08/29/2022 07:39:08 Heparin 1000 unit(s) IV 08/29/2022 08:03:53 Nitro 200 mcg IC 08/29/2022 08:29:40 Nitro 200 mcg IC 08/29/2022 08:29:40 Verapamil 2.5mg, Ntg 100mcgs, 3000 units of Heparin given IA 08/29/2022 07:39:08 SUMMARY OF HEMODYNAMIC DATA ? Time ?? ? AIR REST ?? ? ECG? ? ? 07:18:32 ?? ? AO? 126/69? (98)? SA? ? 07:40:05 ?? ? LV? 148/4,? 20? ? ? 07:46:59 ?? ? LV? 142/6,? 18? ? ? 07:47:07 ?? ? LV? 130/9,? 22? ? ? 07:47:33 ?? ? LV? 129/9,? 21? ? ? 07:47:42 ?? ? LVp? 130/10,? 21? ? ? 07:47:45 ?? ? AOp? 134/47? (91)? ? ? 07:47:52 Signed By Linette Chen? On 08/29/2022 09:43:40 Linette Chen? Radiography Diagnostic Testing: Radiology Impression Chest X-Ray 01/01/23 14:12 IMPRESSION: No radiographic evidence of acute cardiopulmonary disease. Electronically Signed: Edwardo Ogden MD at 15:40 EST ,
--- NOTE | 2023-01-01 18:31 | ECHOCS_ITS ---
Reason For Study: CHEST PAIN Procedure This was a 2D Doppler, Color Flow transthoracic echocardiogram. The study was technically difficult. Contrast injection was performed. Exam performed portable in patient room. Left Ventricle Mild concentric left ventricular hypertrophy. Based upon the 2D echocardiographic and contrast enhanced images obtained there appears to be a normal left ventricular size, wall motion, and systolic function. The estimated ejection fraction is 65 %. No evidence for diastolic dysfunction. Right Ventricle Based upon the 2D echocardiographic images obtained there appears to be normal right ventricular size and systolic function. Atria Normal left atrium. Normal right atrium. No doppler evidence for ASD. Mitral Valve There is no mitral annular calcification. Normal mitral valve. Trivial mitral valve insufficiency. Tricuspid Valve Normal tricuspid valve. Trivial tricuspid valve insufficiency. Unable to estimate RV systolic pressure/pulmonary artery pressure due to technically difficult study. Aortic Valve The aortic valve is not well visualized. Pulmonic Valve The pulmonic valve is not well visualized. Great Vessels The aortic root is not well visualized. Pericardium/Pleural No pericardial effusion. MMode/2D Measurements & Calculations LVIDd: 5.4 cm IVSd: 1.3 cm LAV(MOD-sp4): 60.0 ml LVIDs: 3.4 cm LVPWd: 1.4 cm FS: 37.4 % LVAd ap4: 39.5 cm2 SV(MOD-sp4): 80.8 ml SV(sp4-el): 87.1 ml LVLd ap4: 8.9 cm EDV(MOD-sp4): 140.8 ml EDV(sp4-el): 149.5 ml LVAs ap4: 24.8 cm2 LVLs ap4: 8.3 cm ESV(MOD-sp4): 60.0 ml ESV(sp4-el): 62.4 ml EF(MOD-sp4): 57.4 % EF(sp4-el): 58.3 % LA A4 area: 20.2 cm2 RA A4 area: 15.9 cm2 Time Measurements MV dec time: 0.21 sec Doppler Measurements & Calculations MV E max vini: 58.4 cm/sec Lat Peak E' Vini: 9.1 cm/sec Med Peak E' Vini: 6.3 cm/sec MV A max vini: 65.8 cm/sec E/E' lat: 6.4 E/E' med: 9.2 MV E/A: 0.89 MV V2 max: 70.0 cm/sec Ao V2 max: 98.7 cm/sec MV max P.0 mmHg MV dec slope: 276.4 cm/sec2 Ao max P.9 mmHg MV V2 mean: 39.5 cm/sec Ao V2 mean: 66.3 cm/sec MV mean P.80 mmHg Ao mean P.1 mmHg MV V2 VTI: 21.6 cm Ao V2 VTI: 22.4 cm AV (velocity ratio): 1.4 LV V1 max: 112.9 cm/sec LV V1 max P.1 mmHg LV V1 mean P.2 mmHg LV V1 mean: 84.7 cm/sec LV V1 VTI: 30.5 cm ECHO/Echo Complete W/ Contrast Interpretation Summary The study was technically difficult. Contrast injection was performed. Based upon the 2D echocardiographic and contrast enhanced images obtained there appears to be a normal left ventricular size, wall motion, and systolic function. The estimated ejection fraction is 65 %. Mild concentric left ventricular hypertrophy. Trivial mitral valve insufficiency. Trivial tricuspid valve insufficiency. Unable to estimate RV systolic pressure/pulmonary artery pressure due to techni salvador difficult study. No evidence for diastolic dysfunction. Ordering Physician: Denny Adams Referring Physician: AYSHA SIMON Performed By: Jessica Cortez RCS
--- NOTE | 2023-01-01 19:51 | NURSING ---
pt with 05/06, chest pain at this time, began while sitting in bed 2 l 02 applied via nc, no radiation, no nausea, no SOB. lab at bedside with troponin at 1939, will monitor
--- NOTE | 2023-01-01 19:54 | EKG12_ITS ---
Test Reason : Blood Pressure : / mmHG Vent. Rate : 069 BPM Atrial Rate : 069 BPM P-R Int : 202 ms QRS Dur : 102 ms QT Int : 406 ms P-R-T Axes : 010 124 014 degrees QTc Int : 435 ms Normal sinus rhythm Indeterminate axis Inferior infarct , age undetermined , cannot be excluded Cannot rule out Anterior infarct , age undetermined Abnormal ECG Confirmed by GITA JUAREZ, ROCIO ([id number]), editor trade journal OPAL GUERRERO ([id number]) on 01/03/2023 9:10:21 AM Referred By: BAO Confirmed By:ROCIO PELAYO MD
--- NOTE | 2023-01-01 20:04 | NURSING ---
pt rates pain 4/10 midsternal chest pain, no radiation. EKG completed, pt denies nitro SL at this time. 02 intact at 2 L, pt is to call this RN with worsening pain. call light within reach will monitor.
[2023-01-01 20:14] LABS: Troponin-I HS 5 pg/mL (3.0-78.0)
[2023-01-01] MEDS: Nitroglycerin (INPATIENT USE) 0.4 MG TAB.SUBL SL ×2 (20:34→20:42)
[2023-01-01] MEDS: Enoxaparin 150 MG/ML Syringe 130 MG SC (20:52)
[2023-01-01] MEDS: Insulin Lispro 100 UNIT/ML INSULN.PEN SC (20:58)
[2023-01-01 23:01] LABS: Bedside Glucose 204 mg/dL (74-106)
[2023-01-02] VITALS (25 sets, daily range): BP systolic 110–168; BP diastolic 71–100; PULSE 56–77; RESP 7–24; TEMP 36.5–36.9; O2SAT 92–100
[2023-01-02] MEDS: Morphine 2 MG/ML Syringe IV (00:02)
[2023-01-02] MEDS: 0.9% Saline Lock 10 ML Syringe IV ×2 (00:02→11:18)
--- NOTE | 2023-01-02 00:42 | EKG12_ITS ---
Test Reason : CP Blood Pressure : / mmHG Vent. Rate : 071 BPM Atrial Rate : 071 BPM P-R Int : 220 ms QRS Dur : 102 ms QT Int : 416 ms P-R-T Axes : 036 033 022 degrees QTc Int : 452 ms Sinus rhythm with 1st degree A-V block Inferior infarct , age undetermined , cannot be excluded Poor R wave progression Abnormal ECG Confirmed by GITA JUAREZ, ROCIO ([id number]), editor news OPAL GUERRERO ([id number]) on 01/03/2023 9:09:30 AM Referred By: DR MCMILLAN Confirmed By:ROCIO PELAYO MD
--- NOTE | 2023-01-02 00:43 | PCM.HOSP.N ---
Hospitalist Note Episodes of recurrent chest pain, improved with NG and morphine transiently. Repeat EKG unremarkable. Again, recurrent episode, will add NG paste, repeat trop and obtain additional EKG.
[2023-01-02] MEDS: Nitroglycerin Oint 1 INCH PACKET TD (00:52)
[2023-01-02] MEDS: 0.9% Normal Saline 1,000 ML 150 ML IV (01:05)
[2023-01-02 01:32] LABS: Troponin-I HS 6 pg/mL (3.0-78.0)
--- NOTE | 2023-01-02 02:22 | PCM.HOSP.N ---
Hospitalist Note Patient with no marked improves with NG paste but did have improvement with SL regimen and no marked change with morphine. Repeat EKGs again without acute concerns. Will at this time remove NG paste and attempt NG continuous infusion given this improves patient discomfort. Discussing with Supervising RN to ascertain if absolutely necessary to transition to the ICU for its usage. Patient with ongoing plant for cardiac catheterization in AM.
[2023-01-02] MEDS: Nitroglycerin Infusion 250 ML 3 MG CONT INF (03:14)
--- NOTE | 2023-01-02 03:52 | NURSING ---
Addendum entered by Odalys Holm 01/02/23 03:55: 3-7-23- 2315 Original Note: pt noted with 7/10 mid sternal chest pain, without radiation, dr updated, new orders received. previous EKG and troponin levels negative.
--- NOTE | 2023-01-02 03:58 | NURSING ---
0040-after Morphine administration, pt rates pain 8/10, dr updated, new order received, nitroglycerine paste, EKG, troponin. 0101- EKG to physician, no STEMI. 0220- pt calls nurse to room, rates chest pain 10/10, dr provided with update, new order received for nitroglycerin IV. charge nurse updated.
[2023-01-02] MEDS: Mag Hydrox/Al Hydrox/Simeth 30 ML UDC PO (04:41)
[2023-01-02] MEDS: Morphine 4 MG/ML Syringe IV (05:08)
[2023-01-02 05:45] LABS: Absolute Lymphocyte Count 1.15 X10^3/uL (0.83-4.51); Absolute Neutrophil Count 9.4 X10^3/uL (2.0-7.7); Basophil# 0.03 X10^3/uL; Basophil% 0.3 % (0-1); Eosinophil# 0.08 X10^3/uL; Eosinophils% 0.7 % (0-5); Hematocrit 43.3 % (40-54); Hemoglobin 14.2 g/dL (13.0-16.5); Lymphocyte # 1.15 X10^3/ul (0.83-4.51); Lymphocyte % 9.6 % (19-41); Mean Corp Hgb Conc 32.8 g/dL (32-36); Mean Corpuscular Hgb 29.5 pg (27.0-32.0); Mean Platelet Vol. 10.9 fl (6.2-12.0); Monocyte# 1.26 X10^3/uL; Monocyte% 10.5 % (0-10); NRBC Flagged by Analyzer 0 % (0-5); Neutrophil # 9.39 X10^3/uL (2.7-7.7); Neutrophil % 78.4 % (47-70); Platelet Count 198 K/mm3 (150-450); RBC Distribution Width CV 12.7 % (11.6-14.6); RBC Distribution Width SD 42.2 fl (35.1-43.9); Red Blood Count 4.81 M/mm3 (4.6-6.2)
[2023-01-02 06:11] LABS: Anion Gap 6 (5-15); BUN 14 mg/dL (7-18); BUN/Creat Ratio 15.6 RATIO (10-20); Calcium,Total 8.6 mg/dL (8.5-10.1); Chloride 102 mmol/L (98-107); EST Glomerular Filtration Rate 96 mL/min (>60); Est Glom Filt Rate - Afr Amer 117 mL/min (>60); Estimated Creatinine Clearance 108.07 ml/min; Glucose 161 mg/dL (74-106); Potassium 4.1 mmol/L (3.5-5.1); Sodium Level 134 mmol/L (136-145)
[2023-01-02] MEDS: Isosorbide Mononitrate 30 MG Tablet PO ×2 (07:07→09:21)
[2023-01-02] MEDS: Metoprolol(XL)Succ 25 MG Tablet PO (07:07)
[2023-01-02] MEDS: Lisinopril 20 MG Tablet PO (07:07)
[2023-01-02] MEDS: Levothyroxine 25 MCG TABLET PO (07:07)
[2023-01-02] MEDS: Aspirin E.C. 81 MG Tablet PO (07:07)
[2023-01-02] MEDS: Clopidogrel Bisulfate 75 MG Tablet PO (07:12)
--- NOTE | 2023-01-02 09:14 | PCM.PN.HOSP ---
Reason for Visit Reason for Visit: Diagnoses Essential (primary) hypertension (01/01/23) Unstable angina (01/01/23) Atherosclerotic heart disease of [place] coronary artery without angina pectoris (01/01/23) Chest pain, unspecified (01/01/23) Coronary angioplasty status (01/01/23) Subjective Subjective Patient is a 47-year-old gentleman with significant past cardiac history admitted with chest pain. Admitted to monitored bed consultation placed to cardiology plans for patient to undergo left heart catheterization for reevaluation of his coronaries Objective Data Objective Data Vital Signs: Vital Signs Temp Pulse Resp BP Pulse Ox O2 Del Method O2 Flow Rate 98.4 F 72 15 138/87 H 94 Room Air 2 01/02/23 07:04 01/02/23 07:07 01/02/23 07:04 01/02/23 07:04 01/02/23 07:49 01/02/23 07:49 01/02/23 04:45 Oxygen Flow Rate (L/min) 2 Oxygen Delivery Method Room Air Weight: 125.4 kg Body Mass Index (BMI) 38.5 Intake & Output: Intake and Output for Last 24 Hours 12/31/22 01/01/23 01/02/23 23:59 23:59 23:59 Intake Total 1000 / 1000 1012.55 / 1012.55 Balance 1000 / 1000 1012.55 / 1012.55 Lab / Micro Data Result Diagrams: 01/02/23 05:06 01/02/23 05:06 Labs: Laboratory Results - last 24 hr 01/01/23 13:55: WBC 7.8, RBC 5.57, Hgb 16.7 H, Hct 50.1, MCV 89.9, MCH 30.0, MCHC 33.3, RDW Std Deviation 42.0, RDW Coeff of Elias 12.7, Plt Count 248, MPV 10.6, Immature Gran % (Auto) 0.400, Neut % (Auto) 75.1 H, Lymph % (Auto) 13.1 L, [place] % (Auto) 9.6, Eos % (Auto) 1.4, Baso % (Auto) 0.4, Absolute Neuts (auto) 5.9, Absolute Lymphs (auto) 1.03, Nucleated RBC % 0 01/01/23 13:55: D-Dimer Quant (PE/DVT) 0.45 01/01/23 13:55: Sodium 135 L, Potassium 3.9, Chloride 101, Carbon Dioxide 27.0, Anion Gap 7, BUN 15, Creatinine 1.08, Estim Creat Clear Calc 90.06, Est GFR (MDRD) Af Amer 94, Est GFR (MDRD) Non-Af 78, BUN/Creatinine Ratio 13.9, Glucose 151 H, Calcium 9.1, Troponin I High Sens 5 01/01/23 16:15: POC Glucose 128 H 01/01/23 17:00: Troponin I High Sens 5 01/01/23 19:35: Troponin I High Sens 5 01/01/23 20:51: POC Glucose 204 H 01/02/23 01:05: Troponin I High Sens 6 01/02/23 05:06: WBC 12.0 H, RBC 4.81, Hgb 14.2, Hct 43.3, MCV 90.0, MCH 29.5, MCHC 32.8, RDW Std Deviation 42.2, RDW Coeff of Elias 12.7, Plt Count 198, MPV 10.9, Immature Gran % (Auto) 0.500, Neut % (Auto) 78.4 H, Lymph % (Auto) 9.6 L, [place] % (Auto) 10.5 H, Eos % (Auto) 0.7, Baso % (Auto) 0.3, Absolute Neuts (auto) 9.4 H, Absolute Lymphs (auto) 1.15, Nucleated RBC % 0 01/02/23 05:06: Sodium 134 L, Potassium 4.1, Chloride 102, Carbon Dioxide 26.0, Anion Gap 6, BUN 14, Creatinine 0.90, Estim Creat Clear Calc 108.07, Est GFR (MDRD) Af Amer 117, Est GFR (MDRD) Non-Af 96, BUN/Creatinine Ratio 15.6, Glucose 161 H, Calcium 8.6 Radiography Diagnostic Testing: Radiology Impression Chest X-Ray 01/01/23 14:12 IMPRESSION: No radiographic evidence of acute cardiopulmonary disease. Electronically Signed: Edwardo Ogden MD at 15:40 EST Reading Location ID and State: [facility] / [place] Tel , Service support , Physical Exam Narrative GENERAL: cooperative HEENT: Atraumatic; normocephalic EYES; Anicteric, Normal Conjunctiva NECK; supple, normal thyroid, RESPIRATORY: Diminished to auscultation CARDIOVASCULAR: Regular S1 S2, GI: soft, normoactive bowel sounds, : No Renal angle tenderness; EXTREMITIES: No edema, no clubbing, MUSCULOSKELETAL: no muscle wasting NEURO: Awake; no lateralizing signs. SKIN: No Rash PSYCH; Flat affect Assessment & Plan Assessment/Plan (1) Coronary artery disease: (2) Chest pain: PLAN: Plan Patient is a 47-year-old gentleman with known coronary artery disease presented with chest discomfort 1. Chest pain ? Consistent with unstable angina patient has significant risk factors including prior coronary artery disease with stent placement hypertension dyslipidemia as well as diabetes mellitus type 2. Patient has been admitted to monitored bed treatment initiated per protocol with beta-blockers dual antiplatelet therapy low molecular weight and statin therapy. Consult placed to Dr. Adams with cardiology -01/02/2023; patient seen by Dr. Adams recommended for patient to undergo repeat left heart catheterization for reevaluation 2. Coronary artery disease ? With previous PCI last being in August 2022 where he underwent PCI with K[place] to left circumflex lesion as well as OM1 3. Dyslipidemia -Patient is on statin therapy, continued at home dose 4. Hypertension - Blood pressure controlled, home medications continued with dose adjustment as needed 5. Diabetes mellitus type 2 ? Held oral medication please on his long-acting insulin in addition to scheduled short acting insulin as well as Accu-Cheks before meals and at bedtime with sliding scale insulin coverage 6. Class II obesity with BMI of 39.2 ? Weight loss advised 7. Mild intermittent asthma ? Aerosol treatments as needed 8. GERD ? Patient is on PPI did continue 9. Hypothyroidism - Patient is on levothyroxine home dose continued 10. DVT prophylaxis ? Patient is on low molecular weight heparin Time spent in the patient's overall evaluation,decision-making process, review of diagnostic data, adjustment of management, discussion with other providers, nursing nursing and ancillary staff involved in patient's care documentation, 40 minutes Charges/Coding Visit Charges Inpatient E&M: 42604 Subs Hosp L2
[2023-01-02] MEDS: 0.9% Normal Saline 1,000 ML 75 ML IV (09:16)
--- NOTE | 2023-01-02 09:21 | DS.PCM_ITS ---
Providers Date of Admission: 01/01/23 Date of Discharge: 01/02/23 Primary Care Physician: Dr. Darinel Armstrong MD Consultations 01/01/23 16:04 Consult: Cardiology Routine Consulting Provider: Denny Adams Reason for Consult: Chest Pain EMERGENT Consult: No MD Notified: Yes Date Notified: 01/01/23 Time Notified: 15:16 Method of Notification: Text Reason For Visit: CHEST PAIN Diagnosis Discharge Diagnosis (1) Coronary artery disease: Status: Acute Code(s): I25.10 - Atherosclerotic heart disease of [place] coronary artery without angina pectoris (2) Chest pain: Status: Acute Code(s): R07.9 - Chest pain, unspecified Plan Patient is a 47-year-old gentleman with known coronary artery disease presented with chest discomfort 1. Chest pain ? Consistent with unstable angina patient has significant risk factors including prior coronary artery disease with stent placement hypertension dyslipidemia as well as diabetes mellitus type 2. Patient has been admitted to monitored bed treatment initiated per protocol with beta-blockers dual antiplatelet therapy low molecular weight and statin therapy. Consult placed to Dr. Adams with cardiology -01/02/2023; patient seen by Dr. Adams recommended for patient to undergo repeat left heart catheterization for reevaluation ? Patient left heart catheterization CORONARY ANGIOGRAPHY DOMINANCE:? Right Dominant LEFT HEART ASSESSMENT Left Ventricular Ejection Fraction: Not assessed Normal Left Ventricular End Diastolic Pressure LVEDP: 7 mmHg LEFT MAIN: Angiographically normal LEFT ANTERIOR DESCENDING ARTERY: PROX LAD: Mild luminal irregularities less than 30% MID LAD: Previously placed stent is patent DISTAL LAD: eccentric: 90 % Stenosis DIAGONAL 1: Proximal - small caliber vessel: 85 % Stenosis CIRCUMFLEX ARTERY: PROX CIRC: eccentric: smooth: 25 % Stenosis MID CIRC: Previously placed stent is patent DISTAL CIRC: small caliber vessel: pre bifurcation: 75 % Stenosis OM 1: Proximal - small caliber vessel: mild luminal irregularities RIGHT CORONARY ARTERY: Mild luminal irregularities less than 30% RT PLV: ostial: 50 % Stenosis COLLATERAL FLOW: Collateral flow from Right to Left -Cardiology subsequently recommended optimization of medical therapy 2. Coronary artery disease ? With previous PCI last being in August 2022 where he underwent PCI with [place] to left circumflex lesion as well as OM1 3. Dyslipidemia -Patient is on statin therapy, continued at home dose 4. Hypertension - Blood pressure controlled, home medications continued with dose adjustment as needed 5. Diabetes mellitus type 2 ? Held oral medication please on his long-acting insulin in addition to scheduled short acting insulin as well as Accu-Cheks before meals and at bedtime with sliding scale insulin coverage 6. Class II obesity with BMI of 39.2 ? Weight loss advised 7. Mild intermittent asthma ? Aerosol treatments as needed 8. GERD ? Patient is on PPI did continue 9. Hypothyroidism - Patient is on levothyroxine home dose continued 10. DVT prophylaxis ? Patient is on low molecular weight heparin Time spent in the patient's overall evaluation,decision-making process, review of diagnostic data, adjustment of management, discussion with other providers, nursing nursing and ancillary staff involved in patient's care documentation, 40 minutes Medications at Discharge Home Medications levothyroxine 25 mcg tablet 25 tablet PO DAILY THYROID 07/20/21 pen needle, diabetic 31 gauge x 15/64 #50 ea 07/20/21 OneTouch Verio Flex meter (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 meter) #1 ea 09/04/21 OneTouch Verio test strips (blood sugar diagnostic) #450 ea 09/04/21 FreeStyle Lite Strips (blood sugar diagnostic) #100 ea 09/06/21 aspirin 81 mg chewable tablet 81 mg PO BREAKFAST HEART HEALTH 08/28/22 atorvastatin 40 mg tablet 40 mg PO DAILY CHOLESTEROL 08/28/22 insulin glargine 100 unit/mL (3 mL) subcutaneous pen (Lantus Solostar U-100 Insulin) 26 unit subcut DAILY DIABETES 08/28/22 lisinopril 20 mg tablet 20 mg PO DAILY BLOOD PRESSURE 08/28/22 metoprolol succinate 25 mg tablet,extended release 24 hr 25 mg PO DAILY BLOOD PRESSURE 08/28/22 omeprazole 20 mg capsule,delayed release 20 mg PO DAILY GERD 08/28/22 flash glucose sensor (FreeStyle Ximena 2 Sensor kit) #6 ea 11/01/22 pen needle, diabetic 31 gauge x 1/4 #120 ea 11/01/22 albuterol sulfate 90 mcg/actuation aerosol inhaler (Ventolin HFA) 2 puff inhalation Q4H PRN WHEEZING 01/01/23 clopidogrel 75 mg tablet (Plavix) 75 mg PO DAILY BLOOD THINNER 01/01/23 diclofenac sodium 20 mg/gram/actuation (2 %) topical soln metered-dose pump (Pennsaid) 2 pump topical BID PRN SHOULDER PAIN 01/01/23 dulaglutide 1.5 mg/0.5 mL subcutaneous pen injector (Trulicity) 1.5 mg subcut TU DIABETES 01/01/23 fluticasone propionate 50 mcg/actuation nasal spray,suspension 2 spray intranasal DAILY NASAL CONGESTION 01/01/23 insulin aspart U-100 100 unit/mL (3 mL) subcutaneous pen (Novolog FlexPen U-100 Insulin aspart) 18 unit subcut TIDCM DIABETES 01/01/23 loratadine 10 mg tablet 10 mg PO DAILY ALLERGIES 01/01/23 nitroglycerin 0.4 mg sublingual tablet 0.4 mg sublingual Q5M PRN CHEST PAIN 01/01/23 isosorbide mononitrate 60 mg tablet,extended release 24 hr 60 mg PO DAILY #60 tabs 01/02/23 Hospital Course Summary of Care Provided Minutes Spent on Discharge: 40 Physical Exam Narrative GENERAL: cooperative HEENT: Atraumatic; normocephalic EYES; Anicteric, Normal Conjunctiva NECK; supple, normal thyroid, RESPIRATORY: Diminished to auscultation CARDIOVASCULAR: Regular S1 S2, GI: soft, normoactive bowel sounds, : No Renal angle tenderness; EXTREMITIES: No edema, no clubbing, MUSCULOSKELETAL: no muscle wasting NEURO: Awake; no lateralizing signs. SKIN: No Rash PSYCH; Flat affect Weight / BMI Weight Weight: 125.4 kg Body Mass Index (BMI) 38.5 ABG / Lab / Microbiology Data Result Diagrams: 01/02/23 05:06 01/02/23 05:06 Laboratory: Laboratory Results - last 24 hr 01/01/23 13:55: WBC 7.8, RBC 5.57, Hgb 16.7 H, Hct 50.1, MCV 89.9, MCH 30.0, MCHC 33.3, RDW Std Deviation 42.0, RDW Coeff of Elias 12.7, Plt Count 248, MPV 10.6, Immature Gran % (Auto) 0.400, Neut % (Auto) 75.1 H, Lymph % (Auto) 13.1 L, [place] % (Auto) 9.6, Eos % (Auto) 1.4, Baso % (Auto) 0.4, Absolute Neuts (auto) 5.9, Absolute Lymphs (auto) 1.03, Nucleated RBC % 0 01/01/23 13:55: D-Dimer Quant (PE/DVT) 0.45 01/01/23 13:55: Sodium 135 L, Potassium 3.9, Chloride 101, Carbon Dioxide 27.0, Anion Gap 7, BUN 15, Creatinine 1.08, Estim Creat Clear Calc 90.06, Est GFR (MDRD) Af Amer 94, Est GFR (MDRD) Non-Af 78, BUN/Creatinine Ratio 13.9, Glucose 151 H, Calcium 9.1, Troponin I High Sens 5 01/01/23 16:15: POC Glucose 128 H 01/01/23 17:00: Troponin I High Sens 5 01/01/23 19:35: Troponin I High Sens 5 01/01/23 20:51: POC Glucose 204 H 01/02/23 01:05: Troponin I High Sens 6 01/02/23 05:06: WBC 12.0 H, RBC 4.81, Hgb 14.2, Hct 43.3, MCV 90.0, MCH 29.5, MCHC 32.8, RDW Std Deviation 42.2, RDW Coeff of Elias 12.7, Plt Count 198, MPV 10.9, Immature Gran % (Auto) 0.500, Neut % (Auto) 78.4 H, Lymph % (Auto) 9.6 L, [place] % (Auto) 10.5 H, Eos % (Auto) 0.7, Baso % (Auto) 0.3, Absolute Neuts (auto) 9.4 H, Absolute Lymphs (auto) 1.15, Nucleated RBC % 0 01/02/23 05:06: Sodium 134 L, Potassium 4.1, Chloride 102, Carbon Dioxide 26.0, Anion Gap 6, BUN 14, Creatinine 0.90, Estim Creat Clear Calc 108.07, Est GFR (MDRD) Af Amer 117, Est GFR (MDRD) Non-Af 96, BUN/Creatinine Ratio 15.6, Glucose 161 H, Calcium 8.6 Radiography Diagnostic Testing: Radiology Impression Chest X-Ray 01/01/23 14:12 IMPRESSION: No radiographic evidence of acute cardiopulmonary disease. Electronically Signed: Edwardo Ogden MD at 15:40 EST , D/C Instructions Discharge Diet: Low fat / Low cholesterol and 1800 Calorie Control Diet Discharge Activity: Return to Normal Activity Call your doctor if you observe: Fever of 101 or Higher, Shortness of breath, Fainting spells and Chest pain Meaningful Use Info Meaningful Use Diagnoses (Choose all that apply): None applicable Discharge Plan Admission Admit Date/Time: 01/01/23 18:14 Attending Provider: Tomasz Urbina Primary Care Provider: Darinel Armstrong Consulting Providers: Denny Adams Discharge Orders/Prescriptions Prescriptions: New isosorbide mononitrate 60 mg Tablet Extended Release 24 Hr 60 mg PO DAILY Qty: 60 0RF Continued levothyroxine 25 mcg tablet 25 tablet PO DAILY (DME) pen needle, diabetic 31 gauge x 15/64 needle See Rx Instructions .ROUTE .MEDSUPPLY Qty: 50 Rx Instructions: As directed (DME) 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 meter [OneTouch Verio Flex meter] Misc See Rx Instructions .ROUTE .MEDSUPPLY Qty: 1 0RF Rx Instructions: As directed (DME) OneTouch Verio test strips Strip See Rx Instructions .ROUTE .MEDSUPPLY Qty: 450 3RF Rx Instructions: 5x/day (DME) FreeStyle Lite Strips Strip See Rx Instructions .ROUTE .MEDSUPPLY Qty: 100 6RF Rx Instructions: 4x/day (DME) pen needle, diabetic 31 gauge x 1/4 needle See Rx Instructions .ROUTE .MEDSUPPLY Qty: 120 6RF Rx Instructions: 4x/day (DME) FreeStyle Ximena 2 Sensor Kit See Rx Instructions .Route Qty: 6 1RF Rx Instructions: 1 sensor q 14 days atorvastatin 40 mg tablet 40 mg PO DAILY lisinopril 20 mg tablet 20 mg PO DAILY omeprazole 20 mg capsule,delayed release(DR/EC) 20 mg PO DAILY aspirin 81 mg tablet,chewable 81 mg PO BREAKFAST metoprolol succinate 25 mg tablet extended release 24 hr 25 mg PO DAILY insulin glargine [Lantus Solostar U-100 Insulin] 100 unit/mL (3 mL) insulin pen 26 unit subcut DAILY fluticasone propionate 50 mcg/actuation spray,suspension 2 spray INTRANASAL DAILY loratadine 10 mg tablet 10 mg PO DAILY insulin aspart U-100 [Novolog FlexPen U-100 Insulin] 100 unit/mL (3 mL) in sulin pen 18 unit SUBCUT TIDCM clopidogrel [Plavix] 75 mg tablet 75 mg PO DAILY nitroglycerin 0.4 mg tablet, sublingual 0.4 mg sublingual Q5M PRN (Reason: CHEST PAIN ) albuterol sulfate [Ventolin HFA] 1 INHALER HFA aerosol inhaler 2 puff inhalation Q4H PRN (Reason: WHEEZING ) diclofenac sodium [Pennsaid] 20 mg/gram /actuation(2 %) solution in metered- dose pump 2 pump topical BID PRN (Reason: SHOULDER PAIN) Trulicity 1.5 mg/0.5 mL pen injector 1.5 mg subcut TU Discontinued isosorbide mononitrate 30 mg tablet extended release 24 hr 30 mg PO DAILY Rx Instructions: Hold for SBP less than 110 mmHg Referrals / Follow Up: Darinel Armstrong MD [Primary Care Provider] - Within 2 Weeks Denny Adams MD [Med Staff - Active Staff] - Within 2 Weeks Disposition Disposition (needs filled in before D/C Order can be placed): Home, Self Care Charges/Coding Visit Charges Inpatient E&M: 74456 Disch Hosp >30min
[2023-01-02] MEDS: Insulin Glargine-YFGN 100 UNIT/ML Pen 26 UNIT SC (09:23)
[2023-01-02] MEDS: Pantoprazole Sodium 20 MG Tablet PO (09:24)
--- NOTE | 2023-01-02 09:33 | PHA.DC.MR ---
Pharmacy Service has performed discharge medication reconciliation for this patient. The patient's discharge medication list was reviewed for discrepancies and discrepancies were resolved. Home Medications levothyroxine 25 mcg tablet 25 tablet PO DAILY THYROID 07/20/21 pen needle, diabetic 31 gauge x 15/64 #50 ea 07/20/21 OneTouch Verio Flex meter (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 meter) #1 ea 09/04/21 OneTouch Verio test strips (blood sugar diagnostic) #450 ea 09/04/21 FreeStyle Lite Strips (blood sugar diagnostic) #100 ea 09/06/21 aspirin 81 mg chewable tablet 81 mg PO BREAKFAST Consulted 08/28/22 atorvastatin 40 mg tablet 40 mg PO DAILY CHOLESTEROL 08/28/22 insulin glargine 100 unit/mL (3 mL) subcutaneous pen (Lantus Solostar U-100 Insulin) 26 unit subcut DAILY DIABETES 08/28/22 lisinopril 20 mg tablet 20 mg PO DAILY BLOOD PRESSURE 08/28/22 metoprolol succinate 25 mg tablet,extended release 24 hr 25 mg PO DAILY BLOOD PRESSURE 08/28/22 omeprazole 20 mg capsule,delayed release 20 mg PO DAILY GERD 08/28/22 flash glucose sensor (FreeStyle Ximena 2 Sensor kit) #6 ea 11/01/22 pen needle, diabetic 31 gauge x 1/4 #120 ea 11/01/22 albuterol sulfate 90 mcg/actuation aerosol inhaler (Ventolin HFA) 2 puff inhalation Q4H PRN WHEEZING 01/01/23 clopidogrel 75 mg tablet (Plavix) 75 mg PO DAILY BLOOD THINNER 01/01/23 diclofenac sodium 20 mg/gram/actuation (2 %) topical soln metered-dose pump (Pennsaid) 2 pump topical BID PRN SHOULDER PAIN 01/01/23 dulaglutide 1.5 mg/0.5 mL subcutaneous pen injector (Trulicity) 1.5 mg subcut TU DIABETES 01/01/23 fluticasone propionate 50 mcg/actuation nasal spray,suspension 2 spray intranasal DAILY NASAL CONGESTION 01/01/23 insulin aspart U-100 100 unit/mL (3 mL) subcutaneous pen (Novolog FlexPen U-100 Insulin aspart) 18 unit subcut TIDCM DIABETES 01/01/23 loratadine 10 mg tablet 10 mg PO DAILY ALLERGIES 01/01/23 nitroglycerin 0.4 mg sublingual tablet 0.4 mg sublingual Q5M PRN CHEST PAIN 01/01/23 isosorbide mononitrate 60 mg tablet,extended release 24 hr 60 mg PO DAILY #60 tabs 01/02/23
[2023-01-02 09:46] LABS: Bedside Glucose 170 mg/dL (74-106)
--- NOTE | 2023-01-02 10:02 | CL.D_ITS ---
Patient Name: MICHAEL NAVA Study Date: 01/02/2023 Performing: Denny Adams MD Ht: 71 inches 180.34 cm : 1975 Wt: 276.8 lbs 125.4 kg Age: 47 Gender: male BSA: 2.42 PROCEDURE(S) PERFORMED DC02-([id number])[facility] CL[facility]ICAL PROFILE AND INDICATIONS Indications: Worsening Angina Heart Failure: None Stress/Imaging Stress/Image Study Performed: No Angina Classification Anginal Classification w/in 2 Weeks: CCS IV CAD Presentations: Unstable angina. CONCLUSIONS [place] Multivessel CAD Right to Left Collateral Flow RECOMMENDATIONS Risk factor modification Medical therapy Cased discussed / reviewed with Dr. Chen of Interventional Cardiology DESCRIPTION OF PROCEDURE The patient arrived to the procedure lab. The risks and benefits of the procedure as well as a full description of our services here and current unavailability of surgical backup were fully explained to the patient and/or their significant other prior to the catheterization. The Timeout was completed, verifying the correct patient and procedure. The patient's procedural site was prepped and draped in the usual fashion. Local anesthetic was given subcutaneously to right radial region with Lidocaine 2%. Using a modified Seldinger technique, arterial access was obtained via the right radial artery, a 6Fr sheath was inserted. Left Coronary Artery selective angiography was performed in multiple views using a 5 Fr. 4.0 [place] catheter. Right Coronary Artery selective angiography was then performed in multiple views using a 5 Fr. 4.0 [place] catheter. Left Coronary Artery selective angiography was performed in multiple views using a 5 Fr. JL3.5 catheter. LV to AO pullback pressures were then recorded.The arterial sheath was pulled and a TR Band was applied for hemostasis CORONARY ANGIOGRAPHY DOMINANCE: Right Dominant LEFT HEART ASSESSMENT Left Ventricular Ejection Fraction: Not assessed Normal Left Ventricular End Diastolic Pressure LVEDP: 7 mmHg LEFT MAIN: Angiographically normal LEFT ANTERIOR DESCENDING ARTERY: PROX LAD: Mild luminal irregularities less than 30% MID LAD: Previously placed stent is patent DISTAL LAD: eccentric: 90 % Stenosis DIAGONAL 1: Proximal - small caliber vessel: 85 % Stenosis CIRCUMFLEX ARTERY: PROX CIRC: eccentric: smooth: 25 % Stenosis MID CIRC: Previously placed stent is patent DISTAL CIRC: small caliber vessel: pre bifurcation: 75 % Stenosis OM 1: Proximal - small caliber vessel: mild luminal irregularities RIGHT CORONARY ARTERY: Mild luminal irregularities less than 30% RT PLV: ostial: 50 % Stenosis COLLATERAL FLOW: Collateral flow from Right to Left COMPLICATIONS No Complications PROCEDURE MEDICATIONS Versed 1 mg IV Fentanyl 50 mcg IV Versed 1 mg IV Fentanyl 50 mcg IV Fentanyl 50 mcg IV Oxygen: 2 L/min via nasal cannula Heparin given IA 01/02/2023 07:53:36 Verapamil 2.5mg, Ntg 100mcgs, 3000 units of Heparin given IA 01/02/2023 07:53:36 SUMMARY OF HEMODYNAMIC DATA Time AIR REST ECG 07:28:26 AO 111/70 (89) SA 07:56:00 LV 122/-7, 0 08:02:53 LV 118/-7, 0 08:03:02 LVp 122/-12, 0 08:03:14 AOp 118/51 (84) 08:03:21 Signed By Denny Adams MD On 01/02/2023 10:00:43 Denny Adams MD
--- NOTE | 2023-01-02 10:35 | CASEMGMT ---
RN CM Face to Face with patient for initial transition planning/care coordination assessment. RN CM introduced self and role at [facility]. Patient lying in bed, alert and oriented. Patient willing to participate in assessment and is able to answer all questions appropriately. Care providers, pharmacy, and demographics verified. Patient wishes to discharge home, denies need for home health at this time. Patient states he has no further needs or concerns at this time. CM to follow for discharge planning needs that may arise. PCP: Patti Specialists: [facility] endocrinolgist; [place] cloth bleaching range tender; papi Tucker [facility]erred [facility]acy: [facility] Insurance: [employer] Prescription Benefit: yes Living Will/HPOA: none LNOK: mother Living Arrangements: Patient lives with mother in a single story home with 4 steps and railing to enter the home. Patient states he is independent at home. Transportation: self, mother DME/HHC: Patient has glucometer and supplies at home. Patient denies previous HHC or SNF. Disposition Plan: Patient to discharge home with family support and follow-up plans in place. Shayla ORNELAS, RN, CM
[2023-01-02] MEDS: Ketorolac 15 MG/ML Vial IV (11:18)
[2023-01-02 11:50] LABS: Bedside Glucose 151 mg/dL (74-106)
--- NOTE | 2023-01-02 16:49 | PN.CARD_ITS ---
Subjective Subjective The patient was evaluated earlier this day. He underwent further evaluation with diagnostic cardiac catheterization. He had no obvious postcardiac catheterization adverse events. Objective Data Vital Signs: Vital Signs Temp Pulse Resp BP Pulse Ox O2 Del Method O2 Flow Rate 98.4 F 57 L 21 H 124/79 H 100 Room Air 2 01/02/23 14:40 01/02/23 14:40 01/02/23 14:40 01/02/23 14:40 01/02/23 14:40 01/02/23 14:40 01/02/23 04:45 Oxygen Flow Rate (L/min) 2 Oxygen Delivery Method Room Air Weight: 276 lb 7.355 oz Body Mass Index (BMI) 38.5 Intake & Output: Intake and Output for Last 24 Hours 12/31/22 01/01/23 01/02/23 23:59 23:59 23:59 Intake Total 1000 / 1000 1527.80 / 1527.80 Balance 1000 / 1000 1527.80 / 1527.80 Lab / Micro Data Result Diagrams: 01/02/23 05:06 01/02/23 05:06 Labs: Laboratory Results - last 24 hr 01/01/23 16:15: POC Glucose 128 H 01/01/23 17:00: Troponin I High Sens 5 01/01/23 19:35: Troponin I High Sens 5 01/01/23 20:51: POC Glucose 204 H 01/02/23 01:05: Troponin I High Sens 6 01/02/23 05:06: WBC 12.0 H, RBC 4.81, Hgb 14.2, Hct 43.3, MCV 90.0, MCH 29.5, MCHC 32.8, RDW Std Deviation 42.2, RDW Coeff of Elias 12.7, Plt Count 198, MPV 10.9, Immature Gran % (Auto) 0.500, Neut % (Auto) 78.4 H, Lymph % (Auto) 9.6 L, [place] % (Auto) 10.5 H, Eos % (Auto) 0.7, Baso % (Auto) 0.3, Absolute Neuts (auto) 9.4 H, Absolute Lymphs (auto) 1.15, Nucleated RBC % 0 01/02/23 05:06: Sodium 134 L, Potassium 4.1, Chloride 102, Carbon Dioxide 26.0, Anion Gap 6, BUN 14, Creatinine 0.90, Estim Creat Clear Calc 108.07, Est GFR (MDRD) Af Amer 117, Est GFR (MDRD) Non-Af 96, BUN/Creatinine Ratio 15.6, Glucose 161 H, Calcium 8.6 01/02/23 09:13: POC Glucose 170 H 01/02/23 11:18: POC Glucose 151 H Cardiology Labs/Tests 01/02/23 05:06: WBC 12.0 H, RBC 4.81, Hgb 14.2, Hct 43.3, MCV 90.0, MCH 29.5, MCHC 32.8, Plt Count 198, MPV 10.9, Immature Gran % (Auto) 0.500, Neut % (Auto) 78.4 H, Lymph % (Auto) 9.6 L, [place] % (Auto) 10.5 H, Eos % (Auto) 0.7, Baso % (Auto) 0.3, Absolute Neuts (auto) 9.4 H, Nucleated RBC % 0 01/02/23 05:06: Sodium 134 L, Potassium 4.1, Chloride 102, Carbon Dioxide 26.0, Anion Gap 6, BUN 14, Creatinine 0.90, Est GFR (MDRD) Af Amer 117, Est GFR (MDRD) Non-Af 96, BUN/Creatinine Ratio 15.6, Glucose 161 H, Calcium 8.6 Rhythm: Sinus rhythm EKG: Sinus rhythm; no acute ECG changes ECHO: See below Cardiac Cath: CONCLUSIONS [place] Multivessel CAD Right to Left Collateral Flow RECOMMENDATIONS Risk factor modification Medical therapy Cased discussed / reviewed with Dr. Chen of Interventional Cardiology DESCRIPTION OF? PROCEDURE The patient arrived to the procedure lab. The risks and benefits of the procedure as well as a full description of our services here and current unavailability of surgical backup were fully explained to the patient and/or their significant other prior to the catheterization. The Timeout was completed, verifying the correct patient and procedure. The patient's procedural site was prepped and draped in the usual fashion. Local anesthetic was given subcutaneously to right radial region with Lidocaine 2%. Using a modified Seldinger technique, arterial access was obtained via the right radial artery, a 6Fr sheath was inserted.? Left Coronary Artery selective angiography was performed in multiple views using a 5 Fr. 4.0 [place] catheter. Right Coronary Artery selective angiography was then performed in multiple views using a 5 Fr. 4.0 [place] catheter. Left Coronary Artery selective angiography was performed in multiple views using a 5 Fr. JL3.5 catheter. LV to AO pullback pressures were then recorded.The arterial sheath was pulled and a TR Band was applied for hemostasis CORONARY ANGIOGRAPHY DOMINANCE:? Right Dominant LEFT HEART ASSESSMENT Left Ventricular Ejection Fraction: Not assessed Normal Left Ventricular End Diastolic Pressure LVEDP: 7 mmHg LEFT MAIN: Angiographically normal LEFT ANTERIOR DESCENDING ARTERY: PROX LAD: Mild luminal irregularities less than 30% MID LAD: Previously placed stent is patent DISTAL LAD: eccentric: 90 % Stenosis DIAGONAL 1: Proximal - small caliber vessel: 85 % Stenosis CIRCUMFLEX ARTERY: PROX CIRC: eccentric: smooth: 25 % Stenosis MID CIRC: Previously placed stent is patent DISTAL CIRC: small caliber vessel: pre bifurcation: 75 % Stenosis OM 1: Proximal - small caliber vessel: mild luminal irregularities RIGHT CORONARY ARTERY: Mild luminal irregularities less than 30% RT PLV: ostial: 50 % Stenosis COLLATERAL FLOW: Collateral flow from Right to Left Radiography Diagnostic Testing: Radiology Impression Echocardiogram 01/01/23 18:31 Interpretation Summary The study was technically difficult. Contrast injection was performed. Based upon the 2D echocardiographic and contrast enhanced images obtained there appears to be a normal left ventricular size, wall motion, and systolic function. The estimated ejection fraction is 65 %. Mild concentric left ventricular hypertrophy. Trivial mitral valve insufficiency. Trivial tricuspid valve insufficiency. Unable to estimate RV systolic pressure/pulmonary artery pressure due to technically difficult study. No evidence for diastolic dysfunction. Ordering Physician: Denny Adams Referring Physician: AYSHA SIMON Performed By: Jessica Cortez RCS Physical Exam Const alert, oriented x3, no apparent distress and healthy appearing Orientation / Consciousness: awake HEENT normocephalic, head/scalp atraumatic and hearing grossly normal bilaterally Eyes PERRL, EOMs intact bilaterally, conjunctivae normal and no scleral icterus Neck full ROM, supple and no JVD Carotids: normal carotid upstroke Resp normal respiratory effort and clear to auscultation bilaterally Cardio regular rate, regular rhythm, S1 normal heart sound and S2 normal heart sound Palpation: normal PMI GI normal to inspection, nondistended, normoactive bowel sounds Extremity no pedal edema Skin no rashes or lesions noted Psych mental status grossly normal Assessment & Plan Assessment/Plan (1) Unstable angina: PLAN: The patient presents with symptoms compatible with unstable angina pectoris. He states his symptoms are the same symptoms he had prior to his most recent PCI procedures. He has been compliant with his medications. He underwent evaluation with both noninvasive and invasive studies earlier this day. Based upon his evaluation he appears to have overall preserved LV systolic function. Based upon his evaluation his LAD and LCx stents are patent. He did have disease in the distal LAD distribution. His case was reviewed with Dr. Chen of interventional cardiology. He did not recommend any attempts at percutaneous intervention at this area. He recommended continued medical management. This will include increasing his isosorbide mononitrate to 60 mg p.o. twice daily (2) Coronary artery disease: PLAN: The patient has a history of underlying CAD. This is premature CAD. He has undergone medical management and PCI procedures in the past. As noted above he has undergone further evaluation of his CAD status with diagnostic cardiac catheterization. His LAD and LCx stents were patent. He did have LAD distal disease. His case was reviewed with Dr. Chen of interventional cardiology. He did not recommend additional LAD PCI. He recommended continued medical management. Thus, the patient is going to continue medical therapy. This will include increasing his isosorbide mononitrate to 60 mg p.o. twice daily. (3) S/P PTCA (percutaneous transluminal coronary angioplasty): PLAN: The patient's most recent PCI procedure was reviewed. He did receive PCI to the LAD and LCx distribution. His previously placed LAD and LCx stents are patent at this time. He will continue medical management. (4) Essential hypertension: PLAN: The patient's blood pressure will need to be monitored. Depending upon his blood pressure recordings he may need further adjustment of his medications. Addt'l Comments The patient's case was discussed and reviewed with the patient, Dr. Chen, and Dr. Urbina of the [facility] hospitalist group. Comment: Time spent the patient's overall evaluation, examination, review of medical records, review of imaging studies, documentation, discussion, etc.: 40 minutes.
== END 2023-01-02 15:51 | disposition home or self-care (01) | DRG 191 ==
LOC: ED 15:13 → PCU 15:43
PROVIDERS: Family Medicine; Admitting Provider Internal Medicine; Emergency Provider Emergency Medicine; PCP Family Medicine; Visit Provider Internal Medicine
DX: I25.110 Atherosclerotic heart disease of native coronary artery with unstable angina pectoris (principal); E11.9 Type 2 diabetes mellitus without complications; Z79.4 Long term (current) use of insulin; E03.9 Hypothyroidism, unspecified; I10 Essential (primary) hypertension; E78.5 Hyperlipidemia, unspecified; J45.20 Mild intermittent asthma, uncomplicated; K21.9 Gastro-esophageal reflux disease without esophagitis; E66.9 Obesity, unspecified; Z68.39 Body mass index [BMI] 39.0-39.9, adult; Z79.82 Long term (current) use of aspirin; Z79.899 Other long term (current) drug therapy; Z95.5 Presence of coronary angioplasty implant and graft; Z87.891 Personal history of nicotine dependence; Z79.02 Long term (current) use of antithrombotics/antiplatelets
CPT/HCPCS: C1769; C1894; J7030; 36415; 71045; 80048; 82962; 84484; 85025; 85379; 93005; 93306; 93454; 94668; 96361; 96365; 96366; 96372; 96375; 96376; 99152; 99153; 99221; 99252; 99283; J7040; Q9957; Q9967; A4216; C8929; G0378; G0463

== ENCOUNTER → 2023-07-05 | Outpatient (CLI) | payer MEDICAID, SELFPAY ==
[2023-01-26 01:17] VITALS: BMI 38.2
[2023-07-05 11:54] LABS: ALB/GLOB Ratio 0.9 RATIO (0.9-2.4); AST(SGOT) 20 U/L (15-37); Alanine Aminotransfer ALT/SGPT 35 U/L (16-61); Albumin, Serum 3.6 g/dL (3.2-5.0); Alkaline Phosphatase 118 U/L (45-117); Anion Gap 4 (5-15); BUN 12 mg/dL (7-18); BUN/Creat Ratio 14.3 RATIO (10-20); Calcium,Total 9.2 mg/dL (8.5-10.1); Chloride 106 mmol/L (98-107); Cholesterol 120 mg/dL (200); Creatinine, Serum 0.84 mg/dL (0.70-1.30); EST Glomerular Filtration Rate 104 mL/min (>60); Est Glom Filt Rate - Afr Amer 126 mL/min (>60); Globulin 3.9 g/dL (2.2-4.2); Glucose 105 mg/dL (74-106); High Density Lipoprotein 37 mg/dL; Magnesium 2.3 mg/dL (1.6-2.6); Potassium 3.7 mmol/L (3.5-5.1); Protein, Total 7.5 g/dL (6.4-8.2); Sodium Level 137 mmol/L (136-145); Triglycerides 60 mg/dL; Very Low Density Lipoprotein 12 mg/dL (5-40)
== END | disposition home or self-care (01) ==
LOC: LAB 09:29
PROVIDERS: PCP Family Medicine; Referring Provider Nurse Practitioner Gerontology; Visit Provider Nurse Practitioner Gerontology
DX: R42 Dizziness and giddiness (principal); E78.5 Hyperlipidemia, unspecified
CPT/HCPCS: 36415; 80053; 80061; 83735

== ENCOUNTER → 2023-07-10 | Outpatient (CLI) | payer MEDICAID, SELFPAY ==
[2023-01-26 01:17] VITALS: BMI 38.2
== END | disposition home or self-care (01) ==
LOC: PSN 13:45
PROVIDERS: PCP Family Medicine; Referring Provider Nurse Practitioner Gerontology; Visit Provider Nurse Practitioner Gerontology
DX: R42 Dizziness and giddiness (principal); R00.1 Bradycardia, unspecified
CPT/HCPCS: 93225; 93226

== ENCOUNTER 2023-12-08 12:45 | Emergency (ER) | payer MEDICAID, SELFPAY ==
[2023-01-26 01:17] VITALS: BMI 38.2
[2023-12-08 12:46] VITALS: BP 184/94; PULSE 62; RESP 18; TEMP 35; O2SAT 98; BMI 36.6
--- NOTE | 2023-12-08 12:52 | EKG12_ITS ---
Test Reason : CP Blood Pressure : / mmHG Vent. Rate : 064 BPM Atrial Rate : 064 BPM P-R Int : 192 ms QRS Dur : 104 ms QT Int : 424 ms P-R-T Axes : 021 -06 011 degrees QTc Int : 437 ms Normal sinus rhythm with sinus arrhythmia Inferior infarct , age undetermined Cannot rule out Anterior infarct , age undetermined Abnormal ECG Confirmed by Wilfred Stoddard ([id number]), assistant editor OPAL GUERRERO ([id number]) on 12/10/2023 9:19:46 AM Referred By: Confirmed By:Wilfred Stoddard
--- NOTE | 2023-12-08 12:52 | RAD_ITS ---
EXAM: XR CHEST, 1 VIEW CLINICAL INDICATION: Chest pain. TECHNIQUE: Frontal view of the chest. COMPARISON: 01/01/2023. FINDINGS: LUNGS AND PLEURAL SPACES: Unremarkable. No consolidation or edema. No pneumothorax. No effusion. HEART: Unremarkable. Cardiac silhouette not enlarged. MEDIASTINUM: Central airways and mediastinal contour are unremarkable. BONES/JOINTS: Unremarkable. No acute fracture. SOFT TISSUES: Unremarkable. RAD/Chest 1 View (Portable) IMPRESSION: No radiographic evidence of acute cardiopulmonary disease and unchanged when compared to 01/01/2023. Electronically Signed: José Luis Gaona MD at 13:27 EST ,
[2023-12-08 13:00] VITALS: O2SAT 97
--- NOTE | 2023-12-08 13:07 | EDS_ITS ---
HPI History of Present Illness Chief Complaint: Chest Pain Informant: patient Onset/Context/Timing Onset: Today and Yesterday Activity at onset: gradual Timing: Intermittent Quality: Positive for Pain Location: Substernal Current Severity: Mild Maximum Severity: Mild Worsened By: Nothing Relieved By: Nothing Associated Symptoms: Negative for Nausea, Vomiting, Diaphoresis, Dyspnea, Cough, Fever, Lightheadedness, Acid Reflux or Palpitations Narrative Narrative: 48-year-old male history of CAD, MO, for cardiac stents. Also history of diabetes. And hypertension. He takes Plavix and aspirin.Yesterday developed midsternal chest pain. At rest. Not associated with exertion. No radiation. Pain comes and goes. Initially thought it was gas because he got better with belching. Today his blood pressure was elevated so he decided to have it evaluated. He denies any recent exertional chest pain or exertional dyspnea. Denies any recent illness. Prior Similar Symptoms: No Recent Illness/Hospitalization: No CVD Risk Factors: Positive for Hypertension and Diabetes PE Risk Factors: Negative for Recent Travel/Surgery, Recent Immobilization, Prior DVT or PE or Cancer TAD Risk Factors: Negative for Marfan's Syndrome [facility] Medical History Anxiety Atherosclerosis of coronary artery without angina pectoris Bradycardia Cataract Depression Diabetes Diabetes mellitus type II, uncontrolled Essential hypertension Gastroesophageal reflux History of anxiety History of non-ST elevation myocardial infarction (NSTEMI) (08/28/22) Hyperlipidemia Hypothyroidism Kidney stones Obesity Obesity Substance abuse Home Medications levothyroxine 25 mcg tablet 25 tablet PO DAILY THYROID 07/20/21 [History Last Taken 01/01/23] OneTouch Verio Flex meter (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 meter) #1 ea 09/04/21 [Rx Last Taken Unknown] OneTouch Verio test strips (blood sugar diagnostic) #450 ea 09/04/21 [Rx Last Taken Unknown] FreeStyle Lite Strips (blood sugar diagnostic) #100 ea 09/06/21 [Rx Last Taken Unknown] aspirin 81 mg chewable tablet 81 mg PO BREAKFAST HEART HEALTH 08/28/22 [History Last Taken 01/01/23] atorvastatin 40 mg tablet 40 mg PO DAILY CHOLESTEROL 08/28/22 [History Last Taken 01/01/23] omeprazole 20 mg capsule,delayed release 20 mg PO DAILY GERD 11/01/22 [History Last Taken 01/01/23] albuterol sulfate 90 mcg/actuation aerosol inhaler (Ventolin HFA) 2 puff inhalation Q4H PRN WHEEZING 01/01/23 [History Last Taken Unknown] clopidogrel 75 mg tablet (Plavix) 75 mg PO DAILY BLOOD THINNER 01/01/23 [History Last Taken 01/01/23] fluticasone propionate 50 mcg/actuation nasal spray,suspension 2 spray intranasal DAILY NASAL CONGESTION 01/01/23 [History Last Taken 01/01/23] nitroglycerin 0.4 mg sublingual tablet 0.4 mg sublingual Q5M PRN CHEST PAIN 01/01/23 [History Last Taken Unknown] flash glucose scanning reader (Droid system master Ximena 2 [place]) #1 ea 05/08/23 [Rx Last Taken Unknown] duloxetine 30 mg capsule,delayed release 30 mg PO DAILY 07/05/23 [History Last Taken Unknown] pen needle, diabetic 31 gauge x 1/4 #120 ea 07/09/23 [Rx Last Taken Unknown] dulaglutide 1.5 mg/0.5 mL subcutaneous pen injector (Trulicity) 1.5 mg (0.5 mL) subcut QWEEK #2 mL 09/04/23 [Rx Last Taken Unknown] insulin aspart U-100 100 unit/mL (3 mL) subcutaneous pen (Novolog FlexPen U-100 Insulin aspart) 18 unit (0.18 mL) subcut TIDCM DIABETES #16.2 mL 09/11/23 [Rx Last Taken Unknown] lisinopril 5 mg tablet 5 mg PO DAILY BLOOD PRESSURE 10/04/23 [History Last Taken Unknown] Lantus Solostar U-100 Insulin 100 unit/mL (3 mL) subcutaneous pen (insulin glargine) 30 unit (0.3 mL) subcut QAM #9 mL 10/07/23 [Rx Last Taken Unknown] isosorbide mononitrate 60 mg tablet,extended release 24 hr 60 mg PO DAILY #90 tabs 11/01/23 [Rx Last Taken Unknown] flash glucose sensor (Tuteeyle Ximena 2 Sensor kit) #6 ea 11/21/23 [Rx Last Taken Unknown] clotrimazole 1 % topical cream applic topical 12/08/23 [History Last Taken Unknown] Allergy/AdvReac Type Severity Reaction Status Date / Time No Known Allergies Allergy Verified 10/04/23 10:17 Family History Father Myocardial infarction Surgical History History of coronary artery stent placement (08/28/22) History of coronary artery stent placement (~08/29/22) History of right coronary artery stent placement (08/28/22) Social History household members: family housing: house Smoking Status: Never smoker alcohol intake: never substance use type: marijuana caffeine: Yes Type: carbonated beverages Number of servings: 8 and coffee Number of servings: 1 what type of physical activity do you participate in: none ROS ROS ED ROS Narrative Denies recent illness. Chest pain yesterday and today. Review of Systems ROS Unobtainable: Denies due to encephalopathy Constitutional Constitutional ED: Denies chills or fever(s) Eyes Eyes: Reports none ENT ENT ED: Denies ear pain Cardiovascular Cardiovascular: Reports as per HPI and chest pain; Denies palpitations or racing heartbeat Respiratory/Chest Respiratory/Chest: Denies cough, dyspnea or dyspnea on exertion Gastrointestinal Gastrointestinal: Denies abdominal pain, nausea or vomiting Genitourinary Genitourinary ED: Denies dysuria or hematuria Musculoskeletal Musculoskeletal: Denies arthralgias or back pain Integumentary Denies abscess Neurologic Neurologic: Denies headache(s) Psychiatric Psychiatric: Denies anxiety or depression Endocrine Endocrinology: Denies cold intolerance Hematologic/Lymphatic Hematologic/Lymphatic: Denies easy bleeding Allergic/Immunologic Allergic/Immunologic ED: Denies mouth swelling or tongue swelling EXAM Physical Exam Narrative Exam Narrative: 40-year-old male vital signs stable afebrile initial blood pressure elevated 184/94. Pulse ox 98% on room air no signs hypoxia. He is currently in no distress. H EENT exam unremarkable. Neck nontender no JVD. Lungs clear to auscultation bilaterally. Heart regular rhythm rate about 60 no murmur. Chest wall nontender. Abdomen soft nontender. Moving all 4 extremities. Equal symmetrical radial pulses. Calves are nontender without edema or cords. Neurologically is awake alert with no focal motor deficits. Const Vital Signs: 12/08/23 12:46 12/08/23 13:00 12/08/23 14:00 Temperature 95.0 F L Temperature Source Temporal Pulse Rate 62 57 L Respiratory Rate 18 15 Blood Pressure 184/94 H 160/84 H Blood Pressure Mean 124 109 Pulse Ox 98 97 97 Oxygen Delivery Method Room Air Room Air Room Air Positive well nourished; Negative for cachectic, contractures or unkempt General Appearance ED: NAD; Negative for unkempt, cachectic, contractures or pallor Nutritional Appearance: Negative for cachectic HEENT Reports moist mucous membranes normocephalic and atraumatic; Negative for trauma or tenderness Eyes PERRL and EOMs intact bilaterally General Eye ED: Negative for pale conjunctiva or scleral icterus Neck no lymphadenopathy, supple and no JVD General: Negative for tenderness Chest Wall inspection of chest normal and palpation of chest normal Chest: Negative for tenderness Resp normal respiratory effort and clear to auscultation bilaterally Effort and Inspection: Negative for respiratory distress Auscultation: Negative for rales, rhonchi or wheezes Cardio regular rate, regular rhythm, S1 normal heart sound, S2 normal heart sound and no murmurs Rate: Negative for bradycardia or tachycardic Rhythm: Negative for abnormal rhythm GI normal to inspection, nondistended, normoactive bowel sounds, soft to palpation, non-tender, non-distended and no masses Back/Spine no CVA tenderness and no thoracic nor lumbar tenderness General Back: Negative for CVA tenderness or other Cervical Spine: Negative for cervical spine tenderness Extremity normal to inspection General Extremety ED: Negative for edema, pulses abnormal or tenderness General Extremity: Negative for edema or pulses abnormal Neuro oriented x3 and CN's II-XII intact bilaterally Sensorium / Orientation: awake, alert, oriented to person, oriented to place and oriented to time; Negative for confused or lethargic Motor Exam: strength 5/5 throughout Psych mental status grossly normal Appearance: Negative for unkempt Attitude: No agitated Mood & Affect: Negative for depressed, anxious or tearful Skin no rashes or lesions noted and no wounds General Skin Exam: Negative for jaundice or pallor Rashes: No rashes noted Trauma: Negative for abrasion or laceration MDM MDM MDM Narrative Medical decision making narrative: 48-year-old male with atypical nonexertional nonreproducible chest pain last 2 days. History of cardiac disease with stents. No history of DVT or PE or risk factors. Pain is not pleuritic. Undergo cardiac workup. Repeat exam at 3 PM and 3:35 PM patient doing well. Has had no further symptoms while in the emergency department. This is not exertional pain. Negative cardiac workup with 2 negative troponins. 11 follow-up with his legal word processor for further evaluation. History & Record Review Discussion w/independent historian: Patient Additional record(s) reviewed:: Prior inpatient record, Prior outpatient record, Prior ED visit and Prior labs Lab Data Attestation: I reviewed the patient's lab results. Lab results narrative: CBC unremarkable white count 11.2. H&H 15 and 47. Platelets 237. Electrolytes show a gap of 5. Normal BUN and creatinine. Glucose 176. Initial troponin 6. 2-hour troponin is 6 also. Labs: Laboratory Results - last 24 hr 12/08/23 12/08/23 13:00 14:51 WBC 11.2 H RBC 5.14 Hgb 15.4 Hct 47.1 MCV 91.6 MCH 30.0 MCHC 32.7 RDW Std Deviation 44.9 H RDW Coeff of Elias 13.2 Plt Count 237 MPV 11.0 Immature Gran % (Auto) 0.300 Neut % (Auto) 58.6 Lymph % (Auto) 26.4 Hill % (Auto) 7.8 Eos % (Auto) 6.0 H Baso % (Auto) 0.9 Absolute Neuts (auto) 6.6 Absolute Lymphs (auto) 2.95 Nucleated RBC % 0 Sodium 140 Potassium 4.3 Chloride 107 Carbon Dioxide 28.0 Anion Gap 5 BUN 12 Creatinine 0.95 Estim Creat Clear Calc 128.61 Est GFR (MDRD) Af Amer 108 Est GFR (MDRD) Non-Af 90 BUN/Creatinine Ratio 12.6 Glucose 176 H Calcium 9.5 Troponin I High Sens 6 6 Radiography Chest X-Ray - ED: 1 View, Read by ED Physician, Read by Radiologist, Normal, Heart, Lungs, Mediastinum, Bony Structures, No Acute Disease and Chronic Changes Diagnostic Testing: Clinical Impression(s) from Imaging Studies Chest X-Ray 12/08/23 12:52 IMPRESSION: No radiographic evidence of acute cardiopulmonary disease and unchanged when compared to 01/01/2023. Electronically Signed: José Luis Gaona MD at 13:27 EST , Chest x-ray, portable, single view, interpreted both myself and radiologist shows no acute abnormality. Normal cardiac silhouette. Normal lung montilla. Rhythm Strip Rhythm Strip: Sinus Rhythm Rate: 64 Ectopy: None EKG Initial EKG: Attestation: I personally reviewed and interpreted this EKG as follows: Interpretation: Sinus Rhythm and No Acute Injury Pattern Comments: Normal sinus rhythm rate of 64 no acute signs of MO or ischemia. Discharge Plan Triage Chief Complaint: Chest Pain Other Complaint: Hypertension ED Provider: Ernie Chau Dx/Rx/DC Orders Clinical Impression: History of MO (myocardial infarction), Hx of heart artery stent, History of CAD (coronary artery disease), History of diabetes mellitus, Chest pain Instructions: ED Chest Pain, Uncertain Cause Prescriptions: No Action levothyroxine 25 mcg tablet 25 tablet PO DAILY (DME) 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 meter [OneTouch Verio Flex meter] Misc See Rx Instructions .ROUTE .MEDSUPPLY Qty: 1 0RF Rx Instructions: As directed (DME) OneTouch Verio test strips Strip See Rx Instructions .ROUTE .MEDSUPPLY Qty: 450 3RF Rx Instructions: 5x/day (DME) FreeStyle Lite Strips Strip See Rx Instructions .ROUTE .MEDSUPPLY Qty: 100 6RF Rx Instructions: 4x/day (DME) FreeStyle Ximena 2 [place] Misc See Rx Instructions .Route Qty: 1 0RF Rx Instructions: As directed insulin aspart U-100 [Novolog FlexPen U-100 Insulin] 100 unit/mL (3 mL) insulin pen 18 unit SUBCUT TIDCM Qty: 16.2 5RF duloxetine 30 mg capsule,delayed release(DR/EC) 30 mg PO DAILY lisinopril 5 mg tablet 5 mg PO DAILY atorvastatin 40 mg tablet 40 mg PO DAILY omeprazole 20 mg capsule,delayed release(DR/EC) 20 mg PO DAILY aspirin 81 mg tablet,chewable 81 mg PO BREAKFAST fluticasone propionate 50 mcg/actuation spray,suspension 2 spray INTRANASAL DAILY clopidogrel [Plavix] 75 mg tablet 75 mg PO DAILY nitroglycerin 0.4 mg tablet, sublingual 0.4 mg sublingual Q5M PRN (Reason: CHEST PAIN ) albuterol sulfate [Ventolin HFA] 1 INHALER HFA aerosol inhaler 2 puff inhalation Q4H PRN (Reason: WHEEZING ) clotrimazole 1 % cream TOPICAL (DME) pen needle, diabetic 31 gauge x 1/4 needle See Rx Instructions .ROUTE .MEDSUPPLY Qty: 120 6RF Rx Instructions: 4x/day Trulicity 1.5 mg/0.5 mL pen injector 1.5 mg subcut QWEEK Qty: 2 5RF insulin glargine [Lantus Solostar U-100 Insulin] 100 unit/mL (3 mL) insulin pen 30 unit subcut QAM Qty: 9 5RF isosorbide mononitrate 60 mg tablet extended release 24 hr 60 mg PO DAILY Qty: 90 3RF (DME) FreeStyle Ximena 2 Sensor Kit See Rx Instructions .Route Qty: 6 1RF Rx Instructions: 1 sensor q 14 days Primary Care Provider: Darinel Armstrong Referrals: Darinel Armstrong MD [Primary Care Provider] - As soon as possible Activity Restrictions/Additional Instructions: Follow-up with either your primary care physician or your legal word processor to be seen for further evaluation. They may want to do an outpatient stress test. Return emergency department if you have increasing pain or feeling worse. Your test today, EKG and chest x-ray were unremarkable. Both heart enzymes were normal and were 6. Disposition Disposition: Home, Self Care
[2023-12-08] MEDS: Aspirin 81 MG TAB.CHEW 324 MG PO (13:08)
[2023-12-08 13:09] LABS: Absolute Lymphocyte Count 2.95 X10^3/uL (0.83-4.51); Absolute Neutrophil Count 6.6 X10^3/uL (2.0-7.7); Basophil% 0.9 % (0-1); Eosinophil# 0.67 X10^3/uL; Hematocrit 47.1 % (40-54); Hemoglobin 15.4 g/dL (13.0-16.5); Lymphocyte # 2.95 X10^3/ul (0.83-4.51); Lymphocyte % 26.4 % (19-41); Mean Corp Hgb Conc 32.7 g/dL (32-36); Mean Corpuscular Volume 91.6 fL (80-94); Monocyte# 0.87 X10^3/uL; Monocyte% 7.8 % (0-10); NRBC Flagged by Analyzer 0 % (0-5); Neutrophil # 6.55 X10^3/uL (2.7-7.7); Neutrophil % 58.6 % (47-70); Platelet Count 237 K/mm3 (150-450); RBC Distribution Width CV 13.2 % (11.6-14.6); RBC Distribution Width SD 44.9 fl (35.1-43.9); Red Blood Count 5.14 M/mm3 (4.6-6.2); White Blood Count 11.2 K/mm3 (4.4-11.0)
--- OUTSIDE RECORDS SUMMARY | 2023-12-08 13:11 | XMS RPT_ITS | CCD ---
Author Name Unknown Address [id number] [place] [address] Organization [facility] Care Team Providers Care Parking Enforcement Specialist Name Role Phone Aysha Simon MD Primary Care Provider AYSHA SIMON Primary Care Unavailable JEAN MARIE CAREY Attending Unavailable Aysha Simon MD Primary Care Provider JOSE HATCH Attending Unavailable AYSHA SIMON Primary Care Unavailable AYSHA SIMON Primary Care Unavailable JOSE HATCH Referring Unavailable AYSHA SIMON Primary Care Unavailable JOSE HATCH Referring Unavailable AYSHA SIMON Primary Care Unavailable JOSE HATCH Referring Unavailable AYSHA SIMON Referring Unavailable AYSHA SIMON Primary Care Unavailable JOSE HATCH Attending Unavailable Bailey DU Referring Unavailable AYSHA SIMON Primary Care Unavailable Bailey DU Attending Unavailable AYSHA SIMON Primary Care Unavailable AYSHA SIMON Primary Care Unavailable JOSE HATCH Referring Unavailable AYSHA SIMON Primary Care Unavailable JOSE HATCH Attending Unavailable Medications Current Medications Medication Drug Class(es) Dates Sig (Normalized) Sig (Original) amoxicillin 875 mg oral tablet (2 sources) Penicillin-class Antibacterial Start: 12-04-2022 End: 12-14-2022 take 1 tablet by mouth twice daily amoxicillin (AMOXIL) 875 mg tablet Take 1 tablet by mouth twice daily for 10 days. 20 tablet 0 12/04/2022 12/14/2022 Active Completed/Discontinued Medications Medication Drug Class(es) Dates Sig (Normalized) Sig (Original) [id number] 200 actuat albuterol 0.09 mg/actuat metered dose inhaler (20 sources) beta2-Adrenergic Agonist Start: 04-16-2020 take 2 puff(s) by inhalation every four hours as needed albuterol HFA (VENTOLIN HFA) 90 mcg/actuation inhaler Indications: Acute bronchitis, unspecified organism Inhale 2 Puffs as instructed every 4 hours as needed. 1 Inhaler 1 04/16/2020 Active Problems Active Problems Problem Classification Problem Date Documented Date Episodic/Chronic Anxiety disorders (20 sources) Panic attack; Translations: [Panic disorder [episodic paroxysmal anxiety]] Onset: 11-14-2010 11-04-2019 Chronic Cataract (20 sources) Bilateral cataracts; Translations: [Unspecified cataract] Onset: 01-09-2016 11-04-2019 Chronic Coronary atherosclerosis and other heart disease (20 sources) Coronary atherosclerosis; Translations: [Atherosclerotic heart disease of [place] coronary artery without angina pectoris] Onset: 04-27-2021 04-27-2021 Chronic Diabetes mellitus with complications (20 sources) Type 2 diabetes mellitus; Translations: [Type 2 diabetes mellitus with mild nonproliferative diabetic retinopathy without macular edema, unspecified eye] Onset: 01-09-2016 07-26-2021 Chronic Diabetes mellitus without complication (1 source) Type 2 diabetes mellitus without complications; Translations: [Diabetic eye exam (HCC)] Onset: 09-05-2022 Chronic Disorders of lipid metabolism (20 sources) Mixed hyperlipidemia; Translations: [Mixed hyperlipidemia] Onset: 03-29-2009 11-04-2019 Chronic Esophageal disorders (20 sources) Gastroesophageal reflux disease without esophagitis; Translations: [Gastro-esophageal reflux disease without esophagitis] Onset: 11-04-2019 11-04-2019 Chronic Essential hypertension (20 sources) Hypertensive disorder; Translations: [Essential (primary) hypertension] Onset: 05-10-2006 11-04-2019 Chronic Genitourinary symptoms and ill-defined conditions (3 sources) Tom hematuria; Translations: [Gross hematuria] Onset: 10-22-2023 06-11-2023 Episodic Occlusion or stenosis of precerebral arteries (20 sources) Bilateral stenosis of carotid arteries; Translations: [Occlusion and stenosis of bilateral carotid arteries] Onset: 05-08-2021 05-08-2021 Chronic Other circulatory disease (20 sources) Stenosis of right subclavian artery; Translations: [Stricture of artery] Onset: 05-08-2021 05-08-2021 Chronic Other circulatory disease (1 source) Stricture of artery; Translations: [Subclavian artery stenosis, right (HCC)] Onset: 05-08-2021 Chronic Other nervous system disorders (20 sources) Neuropathy; Translations: [Polyneuropathy, unspecified] Onset: 11-04-2019 11-04-2019 Chronic Other nervous system disorders (1 source) Other chronic pain; Translations: [Chronic neck and back pain] Onset: 04-12-2023 Chronic Other nutritional; endocrine; and metabolic disorders (20 sources) Obese class II; Translations: [Obesity, unspecified] 11-04-2019 Chronic Other upper respiratory disease (20 sources) Allergic rhinitis; Translations: [Allergic rhinitis, unspecified] Onset: 03-12-2013 11-04-2019 Chronic Other upper respiratory infections (1 source) Sinusitis; Translations: [Acute sinusitis, unspecified] Episodic Substance-related disorders (20 sources) Marijuana user; Translations: [Cannabis use, unspecified, uncomplicated] 11-04-2019 Episodic Thyroid disorders (20 sources) Acquired hypothyroidism; Translations: [Hypothyroidism, unspecified] Onset: 05-01-2021 05-01-2021 Chronic Urinary tract infections (1 source) Recurrent urinary tract infection; Translations: [Urinary tract infection, site not specified] 06-14-2023 Episodic Past or Other Problems Problem Classification Problem Date Documented Da te Episodic/Chronic Abdominal pain (2 sources) Epigastric pain; Translations: [Epigastric pain] Onset: 06-11-2023 06-11-2023 Episodic Calculus of urinary tract (20 sources) History of calculus of kidney; Translations: [Personal history of urinary calculi] Onset: 01-14-2013 11-04-2019 Episodic Conditions associated with dizziness or vertigo (5 sources) Lightheadedness; Translations: [Dizziness and giddiness] Onset: 12-04-2022 Episodic Coronary atherosclerosis and other heart disease (1 source) Presence of coronary angioplasty implant and graft; Translations: [S/P coronary artery stent placement] Onset: 04-28-2021 Episodic Other aftercare (20 sources) Patient encounter status; Translations: [Other superintendent [employer] (current) drug therapy] Onset: 04-21-2021 04-21-2021 Episodic Other aftercare (1 source) Other custodial (current) drug therapy; Translations: [Medication management] Onset: 04-21-2021 Episodic Other connective tissue disease (20 sources) Plantar fasciitis of left foot; Translations: [Plantar fascial fibromatosis] Onset: 11-04-2019 11-04-2019 Episodic Other non-traumatic joint disorders (20 sources) Bilateral chronic pain of upper limbs; Translations: [Pain in right shoulder] Onset: 03-11-2009 11-04-2019 Episodic Other non-traumatic joint disorders (1 source) Pain in unspecified joint; Translations: [Polyarthralgia] Onset: 04-12-2023 Episodic Other screening for suspected conditions (not mental disorders or infectious disease) (1 source) Encounter for screening for malignant neoplasm of colon; Translations: [Screening for colon cancer] Onset: 06-11-2023 Episodic Spondylosis; intervertebral disc disorders; other back problems (20 sources) Chronic low back pain; Translations: [Lumbago with sciatica, left side] Onset: 01-15-2011 11-04-2019 Episodic Syncope (2 sources) Near syncope; Translations: [Syncope and collapse] Onset: 12-04-2022 Episodic Results Test Name Value Interpretation Reference Range Facil ity Vital Signs Date Time Vital Sign Value Performing Clinician Akua nair 06-11-2023 09:40-0400 Body height 178 cm Jose Hatch PA-C Work Phone: [facility] 06-11-2023 09:40-0400 Body temperature 97.81 [degF] Jose Hatch PA-C Work Phone: [facility] 06-11-2023 09:40-0400 Body weight 120.2 kg Jose Hatch PA-C Work Phone: [facility] 06-11-2023 09:40-0400 Diastolic blood pressure 86 mm[Hg] Jose Hatch PA-C Work Phone: [facility] 06-11-2023 09:40-0400 Heart rate 78 /min Jose Hatch PA-C Work Phone: [facility] 06-11-2023 09:40-0400 Respiratory rate 18 /min Jose Hatch PA-C Work Phone: [facility] 06-11-2023 09:40-0400 Systolic blood pressure 126 mm[Hg] Jose Hatch PA-C Work Phone: [facility] 12-25-2022 10:46-0500 Body weight 127.46 kg Jose Hatch PA-C Work Phone: [facility] 12-25-2022 10:46-0500 Diastolic blood pressure 84 mm[Hg] Jose Hatch PA-C Work Phone: [facility] 12-25-2022 10:46-0500 Heart rate 56 /min Jose Hatch PA-C Work Phone: [facility] 12-25-2022 10:46-0500 Respiratory rate 20 /min Jose Hatch PA-C Work Phone: [facility] 12-25-2022 10:46-0500 SaO2% (BldA) [Mass fraction] 97 % Jose Hatch PA-C Work Phone: [facility] 12-25-2022 10:46-0500 Systolic blood pressure 112 mm[Hg] Jose Hatch PA-C Work Phone: [facility] 12-04-2022 09:43-0500 Diastolic blood pressure 92 mm[Hg] Jose Hatch PA-C Work Phone: [facility] 12-04-2022 09:43-0500 Systolic blood pressure 140 mm[Hg] Jose Hatch PA-C Work Phone: [facility] 12-04-2022 09:41-0500 Body weight 129.73 kg Jose Hatch PA-C Work Phone: [facility] 12-04-2022 09:41-0500 Heart rate 67 /min Jose Hatch PA-C Work Phone: [facility] 12-04-2022 09:41-0500 Respiratory rate 16 /min Jose Hatch PA-C Work Phone: [facility] 12-04-2022 09:41-0500 SaO2% (BldA) [Mass fraction] 97 % Jose Hatch PA-C Work Phone: [facility] 09-05-2022 07:57-0500 Body weight 126.55 kg Aysha Simon MD Work Phone: [facility] 09-05-2022 07:57-0500 Diastolic blood pressure 86 mm[Hg] Aysha Simon MD Work Phone: [facility] 09-05-2022 07:57-0500 Heart rate 52 /min Aysha Simon MD Work Phone: [facility] 09-05-2022 07:57-0500 Respiratory rate 16 /min Aysha Simon MD Work Phone: [facility] 09-05-2022 07:57-0500 Systolic blood pressure 128 mm[Hg] Aysha Simon MD Work Phone: [facility] Encounters Encounter Date Encounter Type Care Provider Facility Start: 10-22-2023 End: 10-23-2023 ambulatory JOSE DU Facility:[facility] Start: 10-04-2023 Chart abstracting Aysha bradley MD Work Phone: [facility] Procedures Date Procedure Procedure Detail Performing Clinician Start: 09-13-2023 Hemoglobin A1c/Hemoglobin.total in Blood [facility] Provider Start: 05-08-2023 Hemoglobin A1c/Hemoglobin.total in Blood [facility] Provider Start: 02-06-2023 Hemoglobin A1c/Hemoglobin.total in Blood [facility] Provider Start: 08-29-2022 Lipid panel [facility] Provid er Start: 08-29-2022 Thyrotropin [Units/volume] in Serum or Plasma [facility] Provider Start: 04-27-2021 History of placement of stent for coronary artery disease S/P coronary artery stent placement Aysha Simon MD Work Phone: History of placement of stent for coronary artery disease S/P coronary artery stent placement Jose Hatch PA-C Work Phone: Plan of Treatment Date Care Activity Detail Author Start: 2040 PNEUMOCOCCAL (3 - PP SV23 if available, else PCV20) PNEUMOCOCCAL (3 - PPSV23 if available, else PCV20) [facility] Start: 2040 PNEUMOCOCCAL (3 - PP SV23 or PCV20) PNEUMOCOCCAL (3 - PPSV23 or PCV20) [facility] Start: 2040 Pneumococcal vaccination Pneum ococcal Vaccine (3 - PPSV23 or PCV20) [facility] Start: 04-29-2029 Urine microalbumin profile [facility] Start: 06-11-2024 3 comp foot exam completed DIABETIC FOOT EXAM [facility] Start: 06-11-2024 ANNUAL PCP TEAM STAFFING SPECIALIST [place] DISEASE VISIT ANNUAL PCP TEAM CHRONIC DISEASE VISIT [facility] Start: 06-11-2024 Hepatitis B screening URINE AL BUMIN:CREATININE RATIO [facility] Start: 06-11-2024 Hepatitis B surface antibody level LDL CHOLESTEROL [facility] Start: 03-13-2024 Hemoglobin A1c/Hemoglobin.total in Blood HbA1C [facility] Start: 12-25-2023 ANNUAL PCP TEAM STAFFING SPECIALIST [place] DISEASE VISIT ANNUAL PCP TEAM CHRONIC DISEASE VISIT [facility] Start: 12-04-2023 ANNUAL PCP TEAM STAFFING SPECIALIST [place] DISEASE VISIT ANNUAL PCP TEAM CHRONIC DISEASE VISIT [facility] Start: 11-08-2023 Hemoglobin A1c/Hemoglobin.total in Blood HBA1C [facility] Start: 09-05-2023 ANNUAL PCP TEAM STAFFING SPECIALIST [place] DISEASE VISIT ANNUAL PCP TEAM CHRONIC DISEASE VISIT [facility] Start: 09-05-2023 BP CONTROLLED (<130/80) BP CONTROLLE D (<130/80) [facility] Start: 09-05-2023 COVID-19 VACCINE (2 - Booster for Maricel series) COVID-19 VACCINE (2 - Booster for Maricel series) [facility] Immunizations Immunization Date Immunization Notes Care Provider Fa maribelty 11-08-2021 influenza, injectabl e, quadrivalent, contains preservative Aysha Simon MD Work Phone: [facility] 11-08-2021 influenza virus vacc ine, unspecified formulation Aysha Simon MD Work Phone: [facility] 04-21-2021 COVID-19 vaccine (MARICEL) Aysha Simon MD Work Phone: [facility] 04-21-2021 pneumococcal polysaccharide vaccine, 23 valent Aysha Simon MD Work Phone: [facility] Work Phone: 11-30-2020 influenza, injectabl e, quadrivalent, contains preservative Aysha Simon MD Work Phone: [facility] 11-04-2019 pneumococcal conjuga te vaccine, 13 valent Aysha Simon MD Work Phone: [facility] 08-13-2019 influenza, seasonal, injectable Aysha Simon MD Work Phone: [facility] 04-29-2019 tetanus toxoid, redu deisy diphtheria toxoid, and acellular pertussis vaccine, adsorbed Aysha Simon MD Work Phone: [facility] Work Phone: 09-11-2018 influenza, injectabl e, quadrivalent, preservative free Aysha Simon MD Work Phone: [facility] 09-21-2015 influenza, injectabl e, quadrivalent, contains preservative Aysha Simon MD Work Phone: [facility] 09-21-2015 influenza, seasonal, injectable Aysha Simon MD Work Phone: [facility] 09-29-2013 influenza virus vacc ine, unspecified formulation Aysha Simon MD Work Phone: [facility] 09-27-2013 influenza, seasonal, injectable, preservative free Aysha Simon MD Work Phone: [facility] 09-10-2012 influenza virus vacc ine, unspecified formulation Aysha Simon MD Work Phone: [facility] Work Phone: 11-22-2009 pneumococcal polysaccharide vaccine, 23 valyudi Simon MD Work Phone: [facility] Work Phone: 01-26-2008 tetanus toxoid, redu deisy diphtheria toxoid, and acellular pertussis vaccine, adsorbed Aysha Simon MD Work Phone: [facility] Work Phone: Payers Date Payer Category Payer Medicaid [id number] 2022 Medicaid [id number] 2018 Medicaid [employer] [facility] [facility] MEDICAID [id number] 2018-Present [phone] [address] [place] [address] Medicaid [id number] 2018 Medicaid [id number] Social History Date Type Detail Facility Start: 01-06-2013 End: 04-12-2023 Tobacco smoking status NHIS Never smoked tobacco [facility] Start: 11-08-2021 End: 06-11-2023 Alcohol intake Current non-drinker of alcohol (finding) [facility] Start: 1975 Sex Assigned At Not on file C [facility] Start: 01-06-2013 End: 04-12-2023 Tobacco use and exposure Former smokeless tobacco user [facility] Start: 08-26-2022 End: 09-05-2022 Exposure to SARS-CoV-2 (event) Not sure [facility] End: 10-28-1994 History of tobacco use Chews Tobacco [facility] Start: 03-15-2023 End: 04-12-2023 History of Social function [facility] Work Phone: Start: 03-15-2023 End: 04-12-2023 Tobacco use panel [facility] Work Phone: Adult Depression Screening Assessment 6 [facility] Work Phone: Medical Equipment Procedure Code Equipment Code Equipment Origin al Text Equipment Identifier Dates Stent Uret 6fr 2 6cm W/O Gw - [id number] Start: 02-18-2013 Clinical Notes 09-29-2013 to 10-22-2023 Corry Ho LPN - 10/04/2023 11:37 AM Corry Shepard LPN - 09/12/2023 1:49 PM ESTTelephone Encounter - Savi Durand MA - 08/20/2023 5:23 PM EDTPatient InstructionsPatient Instructions Note Date & Type Note Facility 10-22-2023 Note HNO ID: [id number] Author: Bailey Du PA-C Service: ? Author Type: Physician Scuba Diving Instructor Type: Progress Notes Filed: 10/22/2023 6:36 PM Note Text: 48 year old male with CAD, kidney stones, type 2 diabetes c/o concern about UTI Sx started 2 months ago with intermittent bad odor to urine. First time noticed also saw blood, red not pink. No discomfort. No fever, chills. Drinks a lot, pees a lot. Nocturia maybe once. No issues with intermittency, hesitancy, or dribbling, Strong stream. No back or flank pain. Has a little dull aching in right lower abdomen Not employed. Doesn't ride and vehicles that would causes vibration, Hx kidney stone with extraction, stented with removal a week later, Dr. Ahuja. Hemoglobin A1C (%) Date Value 09/13/2023 7.3 05/08/2023 6.6 11/08/2021 7.9 08/28/2021 9.2 ) HISTORIES FAMILY HISTORY Problem Relation Age of Onset Hypertension Mother Ovarian cancer Mother Ischemic Heart Disease Father at 45years old Diabetes Maternal Grandmother Alzheimer's Disease No Family History Colon Cancer No Family History Prostate Cancer No Family History Breast Cancer No Family History Hyperlipidemia No Family History Kidney Disease No Family History Seizures No Family History Stroke No Family History Thyroid No Family History PAST MEDICAL HISTORY Diagnosis Date Allergic rhinitis 03/12/2013 Bilateral carotid artery stenosis 05/08/2021 US 04/2021: Right 0-19%, Left 20-40% Cataract of both eyes 01/09/2016 Chronic bilateral low back pain with bilateral sciatica 01/15/2011 Chronic pain of both shoulders 03/11/2009 Coronary artery disease due to lipid rich plaque 04/27/2021 Seeing [facility] Diabetic eye exam (HCC) 01/12/2022 Last done 01/11/22 [facility] RAUL (generalized anxiety disorder) 11/04/2019 GERD without esophagitis 11/04/2019 History of kidney stones 01/14/2013 Hypertension goal BP (blood pressure) < 140/90 05/10/2006 Kidney stones 2008 Marijuana use Mixed hyperlipidemia 03/29/2009 Neuropathy 11/04/2019 Hands and feet Obesity, Class II, BMI 35-39.9 Panic attack 11/14/2010 S/P coronary artery stent placement 04/27/2021 2 stents 04/24/2021 Subclavian artery stenosis, right (HCC) 05/08/2021 US 04/2021: 50-99% Type 2 diabetes mellitus with mild nonproliferative diabetic retinopathy without macular edema (HCC) 01/09/2016 [facility] - . Well adult exam 11/04/2019 Last done: 11/04/2019 PAST SURGICAL HISTORY Procedure Laterality Date CC CORONARY STENT 08/29/2022 stent to LAD and Mid Circ CORONARY STENT INITIAL 04/24/2021 2 stents placed EGD TRANSORAL BIOPSY SINGLE/MULTIPLE 09/07/2010 gastritis, diffuse, moderate LEFT HEART CATH,PERCUTANEOUS 10/28/2001 Cardiac cath, L heart PAST SURGICAL HISTORY OF remote ?cystoscopy Social History Tobacco Use Smoking status: Never Smokeless tobacco: Former Types: Chew Quit date: 1994 Vaping Use Vaping Use: Never used Substance Use Topics Alcohol use: No Drug use: Yes Types: Marijuana Comment: Miscellaneous: daily ACTIVE PROBLEM LIST Hypertension Goal Bp (Blood Pressure) < 140/90 Chronic Pain of Both Shoulders Mixed Hyperlipidemia Panic Attack Chronic Bilateral Low Back Pain With Bilateral Sciatica History of Kidney Stones Allergic Rhinitis Type 2 Diabetes Mellitus With Mild Nonproliferative Diabetic Retinopathy Without Macular Edema (Hcc) Cataract of Both Eyes Obesity, Class II, Bmi 35-39.9 Raul (Generalized Anxiety Disorder) Gerd Without Esophagitis Marijuana Use Neuropathy Well Adult Exam Plantar Fasciitis, Left Medication Management Coronary Artery Disease Due to Lipid Rich Plaque S/P Coronary Artery Stent Placement Acquired Hypothyroidism Bilateral Carotid Artery Stenosis Subclavian Artery Stenosis, Right (Hcc) Diabetic Eye Exam (Hcc) History of Non-St Elevation Myocardial Infarction (Nstemi) Current Outpatient Medications Medication Sig Dispense Refill omeprazole (PRILOSEC) 20 mg capsule TAKE 1 CAPSULE BY MOUTH ONCE DAILY 30 MINUTES BEFORE BREAKFAST 90 capsule 1 lisinopril (ZESTRIL) 5 mg tablet Take 1 tablet by mouth once daily. Decreased by cardio 06/2023 due to low BP and dizziness aspirin 81 mg cap Take 1 tablet by mouth once daily. 90 capsule 3 levothyroxine (LEVOXYL) 25 mcg tablet Take 1 tablet by mouth once daily. Take on empty stomach. For Thyroid 30 tablet 5 DULoxetine (CYMBALTA) 30 mg capsule Take 1 capsule by mouth once daily. 30 capsule 5 gabapentin (NEURONTIN) 100 mg capsule Take 2 capsules by mouth twice daily for 90 days. 180 capsule 0 atorvastatin (LIPITOR) 40 mg tablet Take 1 tablet by mouth once daily. 90 tablet 3 insulin glargine (BASAGLAR KWIKPEN U-100 INSULIN) 100 unit/mL (3 mL) Inject 26 Units subcutaneously every morning. Per Endocrine, Dr. Conte insulin aspart U-100 (NOVOLOG FLEXPEN U-100 INSULIN) 100 unit/mL (3 mL) Inje (more content not included)... [facility] 10-04-2023 Note HNO ID: [id number] Author: Corry Ho LPN Service: ? Author Type: ? Type: Progress Notes Filed: 10/04/2023 12:35 PM Note Text: Scan on 10/04/2023 10:59 AM by ProviderDejon PA-C: Consultation - Cardiology [facility] 10-04-2023 History of Presen t illness Narrative Scan on 10/04/2023 10:59 AM by Dejon Betancourt PA-C: Consultation - Cardiology documented in this encounter [facility] 09-12-2023 Note HNO ID: [id number] Author: Corry Ho LPN Service: ? Author Type: ? Type: Progress Notes Filed: 09/13/2023 9:29 PM Note Text: Scan on 09/11/2023 2:54 PM by Dejon Betancourt PA-C: Consultation - Endocrinology [facility] 09-12-2023 History of Presen t illness Narrative Scan on 09/11/2023 2:54 PM by Dejon Betancourt PA-C: Consultation - Endocrinology documented in this encounter [facility] 08-20-2023 Miscellaneous Notes Patient notified and voiced understanding. Savi Durand MA Let patient know that if concerned for a UTI he needs seen. Either in the office or our express care. The following approved medication requests have been transmitted electronically. Requested Prescriptions Signed Prescriptions Disp Refills omeprazole (PRILOSEC) 20 mg capsule 90 capsule 1 Sig: TAKE 1 CAPSULE BY MOUTH ONCE DAILY 30 MINUTES BEFORE BREAKFAST Authorizing Provider: AYSHA SIMON MD Patient calling with 2 requests: Requesting refill of Omeprazole, as pended. Patient states he has noticed his urine has smelled foul since yesterday. Reports he drinks a good amount of fluids. Denies fever, bright red blood in urine, no pain or burning. Denies lower abdominal discomfort with urination or other sx's. Pt states he had this issue in May, had urine studies completed and he did have an infection. Jose treated him with Macrobid for 7 days. Pt asking if he should push fluids/water and see if urine odor improves, or if PCP would be agreeable to placing urine labs for him to have completed now? He is concerned he has another UTI. Please advise patient. Thank you. documented in this encounter [facility] 07-05-2023 Note HNO ID: [id number] Author: Jyothi Hodge Ma Service: ? Author Type: ? Type: Progress Notes Filed: 07/07/2023 9:19 PM Note Text: Scan on 07/05/2023 11:18 AM by Dejon Betancourt PA-C: Consultation - Cardiology View External Labs - Chemistry [ID [id number]] [facility] 07-05-2023 History of Presen t illness Narrative Scan on 07/05/2023 11:18 AM by Dejon Betancourt PA-C: Consultation - Cardiology View External Labs - Chemistry [ID [id number]] documented in this encounter [facility] 06-14-2023 Miscellaneous Notes Pt called and is notified of providers results and instructions. Pt voices understanding. Karmen Geiger RN Let patient know that his urine did show infection. I am sending in antibiotic. He can hold off on the US for now. His urine did not show any additional blood at this time. And once he is off the antibiotic we will check urine again just to make sure everything looks okay still. His cholesterol is normal. Kidneys and liver are normal. documented in this encounter [facility] 06-11-2023 Note HNO ID: [id number] Author: Jose Hatch PA-C Service: ? Author Type: Physician [employer] D[employer] Instructor Type: Progress Notes Filed: 06/11/2023 12:15 PM Note Text: Chief Complaint Patient presents with: Yearly Exam HPI Michael Youngblood is a 47 year old male who presents here today for physical. Patient with hx of DM 2, diabetic retinopathy, RAUL with panic attacks, HTN, Hyperlipidemia, GERD, obesity, marijuana use as well as those reviewed and addressed below and in ROS. Patient still seeing endo. Doing better with his diabetes management. Had an episode a few weeks ago where he noted bright red blood in urine. Also had odor. But no pain or burning. Has not seen blood since but still has odor. Reports occ right lower abdominal discomfort with urination. Past medical history, appointments, medications, allergies reviewed. Previous Medical History PAST MEDICAL HISTORY Diagnosis Date Allergic rhinitis 03/12/2013 Bilateral carotid artery stenosis 05/08/2021 US 04/2021: Right 0-19%, Left 20-40% Cataract of both eyes 01/09/2016 Chronic bilateral low back pain with bilateral sciatica 01/15/2011 Chronic pain of both shoulders 03/11/2009 Coronary artery disease due to lipid rich plaque 04/27/2021 Seeing [facility] Diabetic eye exam (HCC) 01/12/2022 Last done 01/11/22 [facility] RAUL (generalized anxiety disorder) 11/04/2019 GERD without esophagitis 11/04/2019 History of kidney stones 01/14/2013 Hypertension goal BP (blood pressure) < 140/90 05/10/2006 Kidney stones 2007 Marijuana use Mixed hyperlipidemia 03/29/2009 Neuropathy 11/04/2019 Hands and feet Obesity, Class II, BMI 35-39.9 Panic attack 11/14/2010 S/P coronary artery stent placement 04/27/2021 2 stents 04/24/2021 Subclavian artery stenosis, right (HCC) 05/08/2021 US 04/2021: 50-99% Type 2 diabetes mellitus with mild 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 Well adult exam 11/04/2019 Last done: 11/04/2019 Previous Surgical History PAST SURGICAL HISTORY Procedure Laterality Date CC CORONARY STENT 08/29/2022 stent to LAD and Mid Circ CORONARY STENT INITIAL 04/24/2021 2 stents placed EGD TRANSORAL BIOPSY SINGLE/MULTIPLE 09/07/2010 gastritis, diffuse, moderate LEFT HEART CATH,PERCUTANEOUS 10/28/2001 Cardiac cath, L heart PAST SURGICAL HISTORY OF remote ?cystoscopy Family History FAMILY HISTORY Problem Relation Age of Onset Hypertension Mother Ovarian cancer Mother Ischemic Heart Disease Father at 45years old Diabetes Maternal Grandmother Alzheimer's Disease No Family History Colon Cancer No Family History Prostate Cancer No Family History Breast Cancer No Family History Hyperlipidemia No Family History Kidney Disease No Family History Seizures No Family History Stroke No Family History Thyroid No Family History Patient Allergies ALLERGIES No Known Allergies Current Medications Current Outpatient Medications on File Prior to Visit Medication Sig omeprazole (PRILOSEC) 20 mg capsule TAKE 1 CAPSULE BY MOUTH ONCE DAILY 30 MINUTES BEFORE BREAKFAST gabapentin (NEURONTIN) 100 mg capsule Take 2 capsules by mouth twice daily for 90 days. lisinopril (ZESTRIL) 10 mg tablet Take 1 tablet by mouth once daily. atorvastatin (LIPITOR) 40 mg tablet Take 1 tablet by mouth once daily. insulin glargine (BASAGLAR KWIKPEN U-100 INSULIN) 100 unit/mL (3 mL) Inject 26 Units subcutaneously every morning. Per Endocrine, Dr. Conte insulin aspart U-100 (NOVOLOG FLEXPEN U-100 INSULIN) 100 unit/mL (3 mL) Inject 18 Units subcutaneously three times daily before meals. And 9 units with snacks. Per Endocrine Dr. Conte dulaglutide (TRULICITY) 1.5 mg/0.5 mL pen injector Inject 1.5 mg subcutaneously one time a week. Inject once per week. Discard Pen After. Per peyman, Dr. Conte isosorbide mononitrate ER (IMDUR) 60 mg 24 hr tablet Take 1 tablet by mouth once daily. Per [facility] fluticasone (FLONASE) 50 mcg/actuation nasal spray Use 2 Sprays in each nostril once daily. Rinse mouth after use. clopidogrel (PLAVIX) 75 mg tablet Take 1 tablet by mouth once daily. Per [facility]. nitroglycerin sublingual (NITROQUICK) 0.4 mg SL tablet DISSOLVE ONE TABLET UNDER THE TONGUE EVERY 5 MINUTES NEEDED FOR CARDIAC CHEST PAIN blood sugar diagnostic (BLOOD GLUCOSE TEST) test strip Test blood sugar(s) 2-3 times daily. Dx: Other DM Code E11.3299 Insulin: Yes Lancets lancets Test blood sugar(s) 2-3 times daily. Dx: Other DM Code E11.3299 Insulin: Yes Insulin [place], Disposable, 31 gauge x 1/4 ndle USE ONE PEN NEEDLE PER DOSE 4 times a day, Dx E11.3299 on insulin blood sugar diagnostic (FREESTYLE LITE STRIPS) test strip USE ONE STRIP TWICE DAILY TO CHECK BLOOD GLUCOSE lancets (FREESTYLE LANCETS) 28 gauge Test blood sugar(s) 2 times daily. Dx: Uncontrolled Diabetes 250.02. Insulin: No albuter (more content not included)... [facility] 06-11-2023 Instructions Jose Hatch PA-C - 06/11/2023 9:54 AM EDT Please set up your eye exam. documented in this encounter [facility] 06-11-2023 History of Presen t illness Narrative Chief Complaint Patient presents with: Yearly Exam HPI Michael Youngblood is a 47 year old male who presents here today for physical. Patient with hx of DM 2, diabetic retinopathy, RAUL with panic attacks, HTN, Hyperlipidemia, GERD, obesity, marijuana use as well as those reviewed and addressed below and in ROS. Patient still seeing endo. Doing better with his diabetes management. Had an episode a few weeks ago where he noted bright red blood in urine. Also had odor. But no pain or burning. Has not seen blood since but still has odor. Reports occ right lower abdominal discomfort with urination. Past medical history, appointments, medications, allergies reviewed. Previous Medical History PAST MEDICAL HISTORY Diagnosis Date Allergic rhinitis 03/12/2013 Bilateral carotid artery stenosis 05/08/2021 US 04/2021: Right 0-19%, Left 20-40% Cataract of both eyes 01/09/2016 Chronic bilateral low back pain with bilateral sciatica 01/15/2011 Chronic pain of both shoulders 03/11/2009 Coronary artery disease due to lipid rich plaque 04/27/2021 Seeing [facility] Diabetic eye exam ([facility]) 01/12/2022 Last done 01/11/22 [facility] RAUL (generalized anxiety disorder) 11/04/2019 GERD without esophagitis 11/04/2019 History of kidney stones 01/14/2013 Hypertension goal BP (blood pressure) < 140/90 05/10/2006 Kidney stones 2007 Marijuana use Mixed hyperlipidemia 03/29/2009 Neuropathy 11/04/2019 Hands and feet Obesity, Class II, BMI 35-39.9 Panic attack 11/14/2010 S/P coronary artery stent placement 04/27/2021 2 stents 04/24/2021 Subclavian artery stenosis, right ([facility]) 05/08/2021 US 04/2021: 50-99% Type 2 diabetes mellitus with mild 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 Well adult exam 11/04/2019 Last done: 11/04/2019 Previous Surgical History PAST SURGICAL HISTORY Procedure Laterality Date CC CORONARY STENT 08/29/2022 stent to LAD and Mid Circ CORONARY STENT INITIAL 04/24/2021 2 stents placed EGD TRANSORAL BIOPSY SINGLE/MULTIPLE 09/07/2010 gastritis, diffuse, moderate LEFT HEART CATH,PERCUTANEOUS 10/28/2001 Cardiac cath, L heart PAST SURGICAL HISTORY OF remote ?cystoscopy Family History FAMILY HISTORY Problem Relation Age of Onset Hypertension Mother Ovarian cancer Mother Ischemic Heart Disease Father at 45years old Diabetes Maternal Grandmother Alzheimer's Disease No Family History Colon Cancer No Family History Prostate Cancer No Family History Breast Cancer No Family History Hyperlipidemia No Family History Kidney Disease No Family History Seizures No Family History Stroke No Family History Thyroid No Family History Patient Allergies ALLERGIES No Known Allergies Current Medications Current Outpatient Medications on File Prior to Visit Medication Sig omeprazole (PRILOSEC) 20 mg capsule TAKE 1 CAPSULE BY MOUTH ONCE DAILY 30 MINUTES BEFORE BREAKFAST gabapentin (NEURONTIN) 100 mg capsule Take 2 capsules by mouth twice daily for 90 days. lisinopril (ZESTRIL) 10 mg tablet Take 1 tablet by mouth once daily. atorvastatin (LIPITOR) 40 mg tablet Take 1 tablet by mouth once daily. insulin glargine (BASAGLAR KWIKPEN U-100 INSULIN) 100 unit/mL (3 mL) Inject 26 Units subcutaneously every morning. Per Endocrine, Dr. Conte insulin aspart U-100 (NOVOLOG FLEXPEN U-100 INSULIN) 100 unit/mL (3 mL) Inject 18 Units subcutaneously three times daily before meals. And 9 units with snacks. Per Endocrine Dr. Conte dulaglutide (TRULICITY) 1.5 mg/0.5 mL pen injector Inject 1.5 mg subcutaneously one time a week. Inject once per week. Discard Pen After. Per endo, Dr. Conte isosorbide mononitrate ER (IMDUR) 60 mg 24 hr tablet Take 1 tablet by mouth once daily. Per [facility] fluticasone (FLONASE) 50 mcg/actuation nasal spray Use 2 Sprays in each nostril once daily. Rinse mouth after use. clopidogrel (PLAVIX) 75 mg tablet Take 1 tablet by mouth once daily. Per [facility]. nitroglycerin sublingual (NITROQUICK) 0.4 mg SL tablet DISSOLVE ONE TABLET UNDER THE TONGUE EVERY 5 MINUTES NEEDED FOR CARDIAC CHEST PAIN blood sugar diagnostic (BLOOD GLUCOSE TEST) test strip Test blood sugar(s) 2-3 times daily. Dx: Other DM Code E11.3299 Insulin: Yes Lancets lancets Test blood sugar(s) 2-3 times daily. Dx: Other DM Code E11.3299 Insulin: Yes Insulin [place], Disposable, 31 gauge x 1/4 ndle USE ONE PEN NEEDLE PER DOSE 4 times a day, Dx E11.3299 on insulin blood sugar diagnostic (FREESTYLE LITE STRIPS) test strip USE ONE STRIP TWICE DAILY TO CHECK BLOOD GLUCOSE lancets (FREESTYLE LANCETS) 28 gauge Test blood sugar(s) 2 times daily. Dx: Uncontrolled Diabetes 250.02. Insulin: No albuterol HFA (VENTOLIN HFA) 90 mcg/actuation inhaler Inhale 2 Puffs as instructed every 4 hours as needed. Blood-Glucose Meter (FREESTYLE LITE METER) monitoring kit Use to test blood sugar as directed. Current Facility-Administered Medications on File Prior to Visit Medication perflutren lipid microspheres 1.3 mL in NaCl (PF) 0.9% 10 mL injection (DEFINITY) sodium chloride 0.9 % (flush) 10 mL (BD POSIFLUSH) Social History Social History Tobacco Use Smoking status: Never Smokeless tobacco: Former Types: Chew Quit date: 1994 Vaping Use Vaping Use: Never used Substance Use Topics Alcohol use: No Drug use: Yes Types: Marijuana Comment: Miscellaneous: daily Review of Symptoms REVIEW OF SYSTEMS GENERAL: No weight loss, malaise or fevers HEENT: No changes in hearing or vision, no nose bleeds or other nasal problems NECK: Negative for lumps, goiter, pain and significant neck swelling RESPIRATORY: Negative for cough, hemoptysis, wheezing, COPD, dyspnea or shortness of breath CARDIOVASCULAR: Negative for chest pain, leg swelling, hypertension, CHF or palpitations GI: Negative for abdominal discomfort, blood in stools or black stools, change in bowel habit, heart burn, nausea, vomiting : See HPI MUSCULOSKELETAL: Negative for joint pain or swelling, back pain or muscle pain SKIN: Negative for lesions, rash, and itching PSYCH: Negative for sleep disturbance, mood disorder and recent psychosocial stressors HEMATOLOGY/LYMPHOLOGY: Negative for prolonged bleeding, bruising easily or swollen nodes ENDOCRINE: Negative for cold or heat intolerance, polyuria, polydipsia and goiter NEURO: No history of headaches, syncope, paralysis, seizures or tremors EXAM: BP 126/86 (BP Site: Left Arm, BP Position: Sitting, BP Cuff Size: Large Adult) Pulse 78 Temp 36.6 C (97.8 F) Resp 18 Ht 178 cm (5' 10.08 ) Wt 120.2 kg (265 lb) BMI 37.94 kg/m General Appearance: Well appearing, alert, in no acute distress, well-hydrated, well nourished.. Skin: Skin color, texture, turgor normal, no suspicious rashes or lesions. Head: Normocephalic, no masses, lesions, tenderness or abnormalities. Eyes: Anicteric sclera. Pupils are equally round and reactive to light. Extraocular movements are intact. . Ears: External ears normal, canals clear. Nose/Sinuses: Nares normal, septum midline, mucosa normal, no drainage or sinus tenderness. Oropharynx: Lips, mucosa, and tongue normal, teeth and gums normal, oropharynx normal. Neck: Supple, no adenopathy; thyroid symmetric, normal size, no bruits. Lungs: Lungs clear to auscultation. No wheezing, rhonchi, rales.. Heart: RRR without murmur, gallop, or rubs. No ectopy. Abdomen: Normal abdominal exam, Abdomen soft, non-tender. Bowel sounds normal. No masses, organomegaly. Extremities: No deformities, edema, skin discoloration, clubbing or cyanosis. Good capillary refill. . Peripheral Pulses: Normal. Neurologic: Gait normal. Reflexes normal and symmetric. Sensation grossly intact.. Feet:Shoes and socks removed, No deformities, ulcers, calluses, normal distal pulses, sensitive to 10 gm monofilament, and vibratory perception normal Health Maintenance List COLORECTAL CANCER SCREENING Never done URINE ALBUMIN:CREATININE RATIO due on 11/08/2022 DIABETIC FOOT EXAM due on 11/08/2022 DILATED RETINAL EXAM due on 01/11/2023 COVID-19 VACCINE(2 - Booster for Maricel series) due on 09/05/2023 INFLUENZA(1) due on 06/28/2023 LDL CHOLESTEROL due on 08/29/2023 BP CONTROLLED (<130/80) due on 09/05/2023 HBA1C due on 11/08/2023 ANNUAL PCP TEAM CHRONIC DISEASE VISIT due on 12/25/2023 DTAP,TDAP,TD(4 - Td or Tdap) due on 04/29/2029 PNEUMOCOCCAL(3 - PPSV23 or PCV20) due on 2040 DEPRESSION ASSESSMENT Completed HEPATITIS B Discontinued HEPATITIS C SCREENING Discontinued HIV SCREENING Discontinued Data reviewed N/a ASSESSMENT/PLAN: 1. Well adult exam - ICD9: V70.0, ICD10: Z00.00 (primary diagnosis) - Counseled on healthy diet and regular exercise - Discussed need for and benefit of weight loss. BMI 37.94 kg/(m^2) 2. Hypertension goal BP (blood pressure) < 140/90 - ICD9: 401.9, ICD10: I10 - Controlled - Continue current medications - Recommend home blood pressure monitoring, to bring results to next visit - Encouraged sodium restriction, DASH or Mediterranean diet - Recommend regular aerobic exercise - COMP METABOLIC PANEL - URINALYSIS, WITH MICROSCOPIC 3. Mixed hyperlipidemia - ICD9: 272.2, ICD10: E78.2 - Control undetermined, due for labs - Counseled on healthy diet and regular exercise - LIPID PANEL, NONFASTING 4. 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 Coronary artery disease due to lipid rich plaque - ICD9: 414.00, 414.3, ICD10: I25.10, I25.83 Cont with cardio 6. History of non-ST elevation myocardial infarction (NSTEMI) - ICD9: 412, ICD10: I25.2 Cont with cardio 7. S/P coronary artery stent placement - ICD9: V45.82, ICD10: Z95.5 Cont with cardio 8. Subclavian artery stenosis, right (HCC) - ICD9: 447.1, ICD10: I77.1 9. GERD without esophagitis - ICD9: 530.81, ICD10: K21.9 Stable overall 10. Acquired hypothyroidism - ICD9: 244.9, ICD10: E03.9 - Instructed patient on importance of taking on an empty stomach either first thing in the morning or at bedtime. - check TSH today - TSH BLD 11. RAUL (generalized anxiety disorder) - ICD9: 300.02, ICD10: F41.1 stable 12. Diabetic eye exam (HCC) - ICD9: V72.0, 250.00, ICD10: Z01.00, E11.9 Patient to set up appt 13. Gross hematuria - ICD9: 599.71, ICD10: R31.0 Check urine and US - URINALYSIS, WITH MICROSCOPIC - US KIDNEY/BLADDER - URINE CULTURE 14. Screening for colon cancer - ICD9: V76.51, ICD10: Z12.11 - CONSULT TO GENERAL SURGERY 15. Medication management - ICD9: V58.69, ICD10: Z79.899 - MAGNESIUM BLD 16. Epigastric pain - ICD9: 789.06, ICD10: R10.13 Mild symptoms. May consider EGD. - CONSULT TO GENERAL SURGERY Jose Hatch PA-C documented in this encounter [facility] 05-29-2023 Miscellaneous Notes Addended by: AYSHA SIMON on: 05/29/2023 06:32 PM Modules accepted: Orders Let patient know script for levothyroxine sent in to get him to his appt on 06/10/2023. The following approved medication requests have been transmitted electronically. Requested Prescriptions Signed Prescriptions Disp Refills levothyroxine (LEVOXYL) 25 mcg tablet 14 tablet 0 Sig: Take 1 tablet by mouth once daily. Take on empty stomach. For Thyroid Authorizing Provider: AYSHA SIMON Refused Prescriptions Disp Refills levothyroxine (LEVOXYL) 25 mcg tablet 90 tablet 1 Sig: Take 1 tablet by mouth once daily. Take on empty stomach. For Thyroid Refused By: AYSHA SIMON Reason for Refusal: Patient needs appointment Aysha Simon MD Spoke with pt and information listed below given. Pt reports he did not realize he had apt and missed it. Apt has been rescheduled for 06/11/23. Checking to see if you would refill thyroid medication till he comes in. Please advise pt. I had closed this before routing back to provider. Jenelle Eaton LPN 1st attempt to reach pt by phone without success. No voice mail set up. Will try later. Jenelle Eaton LPN Let patient know refill for levothyroxine denied. Was to be seen 03/15/2023 and No showed. BRITTNEE: 12/04/2022 Last refill: 12/04/2022 QTY: 90 Refills: 1 Patient has been identified by name and date of : Yes Requested Prescriptions Pending Prescriptions Disp Refills levothyroxine (LEVOXYL) 25 mcg tablet 90 tablet 1 Sig: Take 1 tablet by mouth once daily. Take on empty stomach. For Thyroid RX INSTRUCTIONS: Patient aware RX will be sent to pharmacy. No need to notify patient. Nohemi Reyna documented in this encounter [facility] 05-28-2023 Miscellaneous Notes Last office visit: 12/25/22 F/u scheduled: none Jyothi Hodge Ma documented in this encounter [facility] 05-10-2023 Note HNO ID: [id number] Author: Annabelle Darling Ma Service: ? Author Type: ? Type: Progress Notes Filed: 05/12/2023 1:03 PM Note Text: Scan on 05/08/2023 2:24 PM by ProviderDejon PA-C: Consultation - Endocrinology [facility] 05-10-2023 History of Presen t illness Narrative Scan on 05/08/2023 2:24 PM by ProviderDejon PA-C: Consultation - Endocrinology documented in this encounter [facility] 04-12-2023 Note HNO ID: [id number] Author: Jean Marie Carey MD Service: ? Author Type: Physician Type: Progress Notes Filed: 04/13/2023 1:44 PM Note Text: This note was created using [employer]. Subjective Michael Youngblood is a 47 year old male. I am in a lot of pain And I want to know why Morning stiffness is lasting about 30 minutes to one hour. Cannot move Neck pain 6 10 Mid back 6/10 Low back pain 6/10 Most of pain in spine Never STD No history of recurrent oral or genital ulcers, no history of superficial or deep vein thrombosis, no history of iritis, uveitis, no history of erythema nodosum is there. No history of Hidradenitis Suppurativa . Review of Systems Objective Blood Pressure 117/88 Pulse 60 Temperature 36.8 ?C (98.2 ?F) Height 176.5 cm (5' 9.5 ) Weight 124.7 kg (275 lb) Body Mass Index 40.03 kg/m? Physical Exam Vitals reviewed. Constitutional: General: He is not in acute distress. Appearance: Normal appearance. He is not ill-appearing or toxic-appearing. HENT: Right Ear: There is no impacted cerumen. Left Ear: There is no impacted cerumen. Nose: No congestion or rhinorrhea. Mouth/Throat: Pharynx: No oropharyngeal exudate or posterior oropharyngeal erythema. Cardiovascular: Rate and Rhythm: Normal rate and regular rhythm. Heart sounds: Normal heart sounds. No murmur heard. No friction rub. No gallop. Pulmonary: Effort: No respiratory distress. Breath sounds: Normal breath sounds. No stridor. No wheezing or rhonchi. Abdominal: General: There is no distension. Palpations: There is no mass. Tenderness: There is no abdominal tenderness. Hernia: No hernia is present. Musculoskeletal: Right shoulder: Decreased range of motion. Left shoulder: Decreased range of motion. Right elbow: Normal. Left elbow: Normal. Right wrist: Normal. Left wrist: Normal. Right hand: Normal. Left hand: Normal. Cervical back: No rigidity or tenderness. Decreased range of motion. Thoracic back: Normal. Lumbar back: Decreased range of motion. Right hip: Decreased range of motion. Left hip: Decreased range of motion. Right knee: Normal. Left knee: Normal. Right lower leg: No edema. Left lower leg: No edema. Right ankle: Normal. Left ankle: Normal. Right foot: Normal. Left foot: Normal. Comments: Moderate Decreased range of motion bilateral shoulder Dip pip enlargement mild bilateral hip Decreased range of motion There is no evidence on exam of synovitis, enthesitis, and hypermobility / tenderness. Lymphadenopathy: Cervical: No cervical adenopathy. Skin: Findings: No rash. Neurological: Mental Status: He is alert. Assessment and Plan First visit 04/11/23 CANNOT USE NSAID coronary artery disease Polyarthralgia (( Age 35 onset of pain, not seen rheum till 04/19 ) 2021 JULIANN RF neg ESR 5 crp normal, (2010 esr 5 m ) ( 2022 esr 9 RF JULIANN neg [facility]) 2020 Anti-cardiolipin ab. Neg LA neg 2018 TPO neg 2015 CK 142 2012 uric 5 PTH 44 2016 chest xr normal . TT 04/11/23 get labs address pain for now. Drug and disease monitoring 2. cbc cmp cbc normal 11/18 UA normal 2021 B12 normal, Chronic neck pain (( 04/19 no jaw pain, neck pain 2022 onset, localized ) TT 04/11/23 Chronic mid back pain (( 04/19 2013 onset )) 2012 xr normal . ( Image reviewed no CPPD noted ) TT 04/11/23 Chronic low back pain ((03/19 :: 2019 onset, localized, worse early am, better as day goes by , better with movement, does not remember of NSAID helps ) 2019 Xr LS normal TT 04/11/23 suggestion of inflammatory low back pain, get labs. Right shoulder pain > left shoulder pain (( 04/19 diff with movement, diff with wiping behind, constant 24/7 never gone, 2006 started ) ( no elbow wrist hand pain ) 2019 left shoulder xr mild Degenerative changes in the left Acromioclavicular joint 2019 right shoulder xr normal . TT No inj done 04/11/23 PT done 202104/11/23 Left hip pain (( 04/19 no right hip pain, 2019 onset, laterally, during sleep or walking ) ( no knee ankle feet pains ) 2019 bilateral hip xr normal TT Not seen ortho 04/11/23 HTN 2010 onset coronary artery disease , stent 04/17 ( CT Subclavian artery stenosis right bilateral carotid art stenosis Diabetes Mellitus II 2010 onset Obesity wt 275 ( ht 5'9.5 ) Hypothyroid GERD Generalized anxiety Other 2010 MRA MRI : MINIMAL NONSPECIFIC PATCHY WHITE MATTER T2 HYPERINTENSITIES 2009 EGD : Stomach, antrum, biopsy - No significant Pain mgt ( symptoms complex would suggest Fibromyalgia ut tenderpoint is negative , manage as such for now. PT done 2019 done 04/11/23 aquatic therapy not done, not done 04/11/23 Chiropractor manipulation not done, 04/11/23 Massage therapy not done,04/11/23 Acupuncture not done 04/11/23 Pain management not done, injection, epidural, RFNA not done. 04/11/23 Aleve motrin used before no help OFF DO NOT USE NSAID CAD No use of lyrica, alan (more content not included)... [facility] 03-05-2023 Miscellaneous Notes Patient has been identified by name and date of : Yes Requested Prescriptions Pending Prescriptions Disp Refills isosorbide mononitrate ER (IMDUR) 60 mg 24 hr tablet Sig: Take 1 tablet by mouth once daily. Per [facility] omeprazole (PRILOSEC) 20 mg capsule 90 capsule 0 Sig: TAKE ONE CAPSULE BY MOUTH ONCE DAILY 1/2 HOUR BEFORE BREAKFAST RX INSTRUCTIONS: Patient aware RX will be sent to pharmacy. No need to notify patient. Savi Durand MA Brittnee 11/2022 Nov 02/2023 Last refill; 10/2022 Patient has been identified by name and date of : Yes Requested Prescriptions Pending Prescriptions Disp Refills isosorbide mononitrate ER (IMDUR) 60 mg 24 hr tablet Sig: Take 1 tablet by mouth once daily. Per [facility] omeprazole (PRILOSEC) 20 mg capsule 90 capsule 0 Sig: TAKE ONE CAPSULE BY MOUTH ONCE DAILY 1/2 HOUR BEFORE BREAKFAST RX INSTRUCTIONS: Patient aware RX will be sent to pharmacy. No need to notify patient. Nohemi Flores Pss documented in this encounter [facility] 02-07-2023 Note HNO ID: [id number] Author: Corry Ho LPN Service: ? Author Type: ? Type: Progress Notes Filed: 02/07/2023 5:08 PM Note Text: Scan on 02/06/2023 2:04 PM by External Provider: Consultation - Endocrinology [facility] 02-07-2023 History of Presen t illness Narrative Scan on 02/06/2023 2:04 PM by External Provider: Consultation - Endocrinology documented in this encounter [facility] 01-24-2023 Note HNO ID: [id number] Author: Savi Durand MA Service: ? Author Type: Associate Professor Of Radiology Type: Progress Notes Filed: 01/24/2023 10:01 PM Note Text: Scan on 01/24/2023 11:04 AM by External Provider: Consultation - Cardiology Savi Durand MA [facility] 01-24-2023 History of Presen t illness Narrative Scan on 01/24/2023 11:04 AM by External Provider: Consultation - Cardiology Savi Durand MA documented in this encounter [facility] 01-03-2023 Note HNO ID: [id number] Author: Savi Durand MA Service: ? Author Type: Associate Professor Of Radiology Type: Progress Notes Filed: 01/03/2023 3:32 PM Note Text: Scan on 01/01/2023 4:16 PM by External Provider: X-ray Scan on 01/01/2023 4:24 PM by External Provider: Consultation - Emergency Medicine Scan on 01/01/2023 10:13 PM by External Provider: Consultation - Emergency Medicine Scan on 01/02/2023 11:05 AM by External Provider: Cardiac Cath Scan on 01/02/2023 12:18 PM by External Provider: Consultation - Emergency Medicine Scan on 01/02/2023 6:03 PM by External Provider: Echo Savi Durand MA [facility] 01-03-2023 History of Presen t illness Narrative Scan on 01/01/2023 4:16 PM by External Provider: X-ray Scan on 01/01/2023 4:24 PM by External Provider: Consultation - Emergency Medicine Scan on 01/01/2023 10:13 PM by External Provider: Consultation - Emergency Medicine Scan on 01/02/2023 11:05 AM by External Provider: Cardiac Cath Scan on 01/02/2023 12:18 PM by External Provider: Consultation - Emergency Medicine Scan on 01/02/2023 6:03 PM by External Provider: Ciara Durand MA documented in this encounter [facility] 01-02-2023 Note HNO ID: [id number] Author: Savi Durand MA Service: ? Author Type: Associate Professor Of Radiology Type: Progress Notes Filed: 01/02/2023 3:53 PM Note Text: Scan on 01/02/2023 12:18 PM by External Provider: Consultation - Emergency Medicine Scan on 01/02/2023 11:05 AM by External Provider: Cardiac Cath Do you need to see patient for follow up? Savi Durand MA [facility] 01-02-2023 History of Presen t illness Narrative Scan on 01/02/2023 12:18 PM by External Provider: Consultation - Emergency Medicine Scan on 01/02/2023 11:05 AM by External Provider: Cardiac Cath Do you need to see patient for follow up? Savi Durand MA documented in this encounter [facility] 12-25-2022 Note HNO ID: [id number] Author: Jose Hatch PA-C Service: ? Author Type: Physician Scuba Diving Instructor Type: Progress Notes Filed: 12/25/2022 11:06 AM Note Text: Chief Complaint Patient presents with: Follow Up: 3 wk FU dizziness HPI Michael Youngblood is a 47 year old male who presents here today for Above Complaints.. Patient states he continues to have lightheaded spells that come on around 1pm with pressure behind his eyes and in his ears. Patient hasn't talked with Cardio yet as advised. He states the symptoms are not as frequent as before but still present. He states he is no longer having the vertigo symptoms. He does note that the lightheadedness is worse with standing up and positional changes. He just got a BP cuff so plans to start checking his BP. We also switch to cymbalta. He states he does feel improvement. Less stress. Past medical history, appointments, medications, allergies reviewed. Previous Medical History PAST MEDICAL HISTORY Diagnosis Date Allergic rhinitis 03/12/2013 Bilateral carotid artery stenosis 05/08/2021 US 04/2021: Right 0-19%, Left 20-40% Cataract of both eyes 01/09/2016 Chronic bilateral low back pain with bilateral sciatica 01/15/2011 Chronic pain of both shoulders 03/11/2009 Coronary artery disease due to lipid rich plaque 04/27/2021 Seeing [facility] Diabetic eye exam (HCC) 01/12/2022 Last done 01/11/22 [facility] RAUL (generalized anxiety disorder) 11/04/2019 GERD without esophagitis 11/04/2019 History of kidney stones 01/14/2013 Hypertension goal BP (blood pressure) < 140/90 05/10/2006 Kidney stones 2007 Marijuana use Mixed hyperlipidemia 03/29/2009 Neuropathy 11/04/2019 Hands and feet Obesity, Class II, BMI 35-39.9 Panic attack 11/14/2010 S/P coronary artery stent placement 04/27/2021 2 stents 04/24/2021 Subclavian artery stenosis, right ([facility]) 05/08/2021 US 04/2021: 50-99% Type 2 diabetes mellitus with mild 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 Well adult exam 11/04/2019 Last done: 11/04/2019 Previous Surgical History PAST SURGICAL HISTORY Procedure Laterality Date CC CORONARY STENT 08/29/2022 stent to LAD and Mid Circ CORONARY STENT INITIAL 04/24/2021 2 stents placed EGD TRANSORAL BIOPSY SINGLE/MULTIPLE 09/07/2010 gastritis, diffuse, moderate LEFT HEART CATH,PERCUTANEOUS 10/28/2001 Cardiac cath, L heart PAST SURGICAL HISTORY OF remote ?cystoscopy Family History FAMILY HISTORY Problem Relation Age of Onset Hypertension Mother Ovarian cancer Mother Ischemic Heart Disease Father at 45years old Diabetes Maternal Grandmother Alzheimer's Disease No Family History Colon Cancer No Family History Prostate Cancer No Family History Breast Cancer No Family History Hyperlipidemia No Family History Kidney Disease No Family History Seizures No Family History Stroke No Family History Thyroid No Family History Patient Allergies ALLERGIES No Known Allergies Current Medications Current Outpatient Medications on File Prior to Visit Medication Sig DULoxetine (CYMBALTA) 30 mg capsule Take 1 capsule by mouth once daily. fluticasone (FLONASE) 50 mcg/actuation nasal spray Use 2 Sprays in each nostril once daily. Rinse mouth after use. loratadine (CLARITIN) 10 mg tablet Take 1 tablet by mouth once daily. levothyroxine (LEVOXYL) 25 mcg tablet Take 1 tablet by mouth once daily. Take on empty stomach. For Thyroid omeprazole (PRILOSEC) 20 mg capsule TAKE ONE CAPSULE BY MOUTH ONCE DAILY 1/2 HOUR BEFORE BREAKFAST lisinopril (ZESTRIL, PRINIVIL) 20 mg tablet Take 1 tablet by mouth once daily. atorvastatin (LIPITOR) 40 mg tablet Take 1 tablet by mouth once daily. clopidogrel (PLAVIX) 75 mg tablet Take 1 tablet by mouth once daily. Per [facility]. insulin glargine (BASAGLAR KWIKPEN U-100 INSULIN) 100 unit/mL (3 mL) Inject 25 Units subcutaneously every morning. Per Endocrine, Dr. Conte insulin aspart U-100 (NOVOLOG FLEXPEN U-100 INSULIN) 100 unit/mL (3 mL) Inject 12 Units subcutaneously three times daily before meals. And 6 units with snacks. Per Endocrine Dr. Conte aspirin 81 mg cap Take 1 tablet by mouth once daily. dulaglutide (TRULICITY) 0.75 mg/0.5 mL pen injector Inject 0.75 mg subcutaneously one time a week. Inject dose once per week. Discard Pen After, Per endoDr. Conte metoprolol succinate ER (TOPROL XL) 25 mg 24 hr tablet Take 1 tablet by mouth once daily. Per Cardio. Dr. Harrison isosorbide mononitrate ER (IMDUR) 30 mg 24 hr tablet TAKE 1 TABLET BY MOUTH ONCE DAILY. HOLD FOR SYSTOLIC BLOOD PRESSURE LESS THAN 110 nitroglycerin sublingual (NITROQUICK) 0.4 mg SL tablet DISSOLVE ONE TABLET UNDER THE TONGUE EVERY 5 MINUTES NEEDED FOR CARDIAC CHEST PAIN Blood Pressure Monitor (BLOOD PRESSURE KIT) Take blood pressure a few days a week. Dx: I10 blood sugar diagnostic (BLOOD GLU (more content not included)... [facility] 12-25-2022 History of Presen t illness Narrative Chief Complaint Patient presents with: Follow Up: 3 wk FU dizziness HPI Michael Youngblood is a 47 year old male who presents here today for Above Complaints.. Patient states he continues to have lightheaded spells that come on around 1pm with pressure behind his eyes and in his ears. Patient hasn't talked with Cardio yet as advised. He states the symptoms are not as frequent as before but still present. He states he is no longer having the vertigo symptoms. He does note that the lightheadedness is worse with standing up and positional changes. He just got a BP cuff so plans to start checking his BP. We also switch to cymbalta. He states he does feel improvement. Less stress. Past medical history, appointments, medications, allergies reviewed. Previous Medical History PAST MEDICAL HISTORY Diagnosis Date Allergic rhinitis 03/12/2013 Bilateral carotid artery stenosis 05/08/2021 US 04/2021: Right 0-19%, Left 20-40% Cataract of both eyes 01/09/2016 Chronic bilateral low back pain with bilateral sciatica 01/15/2011 Chronic pain of both shoulders 03/11/2009 Coronary artery disease due to lipid rich plaque 04/27/2021 Seeing [facility] Diabetic eye exam ([facility]) 01/12/2022 Last done 01/11/22 [facility] RAUL (generalized anxiety disorder) 11/04/2019 GERD without esophagitis 11/04/2019 History of kidney stones 01/14/2013 Hypertension goal BP (blood pressure) < 140/90 05/10/2006 Kidney stones 2008 Marijuana use Mixed hyperlipidemia 03/29/2009 Neuropathy 11/04/2019 Hands and feet Obesity, Class II, BMI 35-39.9 Panic attack 11/14/2010 S/P coronary artery stent placement 04/27/2021 2 stents 04/24/2021 Subclavian artery stenosis, right ([facility]) 05/08/2021 US 04/2021: 50-99% Type 2 diabetes mellitus with mild 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 Well adult exam 11/04/2019 Last done: 11/04/2019 Previous Surgical History PAST SURGICAL HISTORY Procedure Laterality Date CC CORONARY STENT 08/29/2022 stent to LAD and Mid Circ CORONARY STENT INITIAL 04/24/2021 2 stents placed EGD TRANSORAL BIOPSY SINGLE/MULTIPLE 09/07/2010 gastritis, diffuse, moderate LEFT HEART CATH,PERCUTANEOUS 10/28/2001 Cardiac cath, L heart PAST SURGICAL HISTORY OF remote ?cystoscopy Family History FAMILY HISTORY Problem Relation Age of Onset Hypertension Mother Ovarian cancer Mother Ischemic Heart Disease Father at 45years old Diabetes Maternal Grandmother Alzheimer's Disease No Family History Colon Cancer No Family History Prostate Cancer No Family History Breast Cancer No Family History Hyperlipidemia No Family History Kidney Disease No Family History Seizures No Family History Stroke No Family History Thyroid No Family History Patient Allergies ALLERGIES No Known Allergies Current Medications Current Outpatient Medications on File Prior to Visit Medication Sig DULoxetine (CYMBALTA) 30 mg capsule Take 1 capsule by mouth once daily. fluticasone (FLONASE) 50 mcg/actuation nasal spray Use 2 Sprays in each nostril once daily. Rinse mouth after use. loratadine (CLARITIN) 10 mg tablet Take 1 tablet by mouth once daily. levothyroxine (LEVOXYL) 25 mcg tablet Take 1 tablet by mouth once daily. Take on empty stomach. For Thyroid omeprazole (PRILOSEC) 20 mg capsule TAKE ONE CAPSULE BY MOUTH ONCE DAILY 1/2 HOUR BEFORE BREAKFAST lisinopril (ZESTRIL, PRINIVIL) 20 mg tablet Take 1 tablet by mouth once daily. atorvastatin (LIPITOR) 40 mg tablet Take 1 tablet by mouth once daily. clopidogrel (PLAVIX) 75 mg tablet Take 1 tablet by mouth once daily. Per [facility]. insulin glargine (BASAGLAR KWIKPEN U-100 INSULIN) 100 unit/mL (3 mL) Inject 25 Units subcutaneously every morning. Per EndocrineDr. Conte insulin aspart U-100 (NOVOLOG FLEXPEN U-100 INSULIN) 100 unit/mL (3 mL) Inject 12 Units subcutaneously three times daily before meals. And 6 units with snacks. Per Endocrine Dr. Conte aspirin 81 mg cap Take 1 tablet by mouth once daily. dulaglutide (TRULICITY) 0.75 mg/0.5 mL pen injector Inject 0.75 mg subcutaneously one time a week. Inject dose once per week. Discard Pen After, Per endoDr. Conte metoprolol succinate ER (TOPROL XL) 25 mg 24 hr tablet Take 1 tablet by mouth once daily. Per Cardio. Dr. Harrison isosorbide mononitrate ER (IMDUR) 30 mg 24 hr tablet TAKE 1 TABLET BY MOUTH ONCE DAILY. HOLD FOR SYSTOLIC BLOOD PRESSURE LESS THAN 110 nitroglycerin sublingual (NITROQUICK) 0.4 mg SL tablet DISSOLVE ONE TABLET UNDER THE TONGUE EVERY 5 MINUTES NEEDED FOR CARDIAC CHEST PAIN Blood Pressure Monitor (BLOOD PRESSURE KIT) Take blood pressure a few days a week. Dx: I10 blood sugar diagnostic (BLOOD GLUCOSE TEST) test strip Test blood sugar(s) 2-3 times daily. Dx: Other DM Code E11.3299 Insulin: Yes Lancets lancets Test blood sugar(s) 2-3 times daily. Dx: Other DM Code E11.3299 Insulin: Yes Insulin [place], Disposable, 31 gauge x 1/4 ndle USE ONE PEN NEEDLE PER DOSE 4 times a day, Dx E11.3299 on insulin blood sugar diagnostic (FREESTYLE LITE STRIPS) test strip USE ONE STRIP TWICE DAILY TO CHECK BLOOD GLUCOSE lancets (FREESTYLE LANCETS) 28 gauge Test blood sugar(s) 2 times daily. Dx: Uncontrolled Diabetes 250.02. Insulin: No albuterol HFA (VENTOLIN HFA) 90 mcg/actuation inhaler Inhale 2 Puffs as instructed every 4 hours as needed. Blood-Glucose Meter (FREESTYLE LITE METER) monitoring kit Use to test blood sugar as directed. Current Facility-Administered Medications on File Prior to Visit Medication perflutren lipid microspheres 1.3 mL in NaCl (PF) 0.9% 10 mL injection (DEFINITY) sodium chloride 0.9 % (flush) 10 mL (BD POSIFLUSH) Social History Social History Tobacco Use Smoking status: Never Smokeless tobacco: Former Vaping Use Vaping Use: Never used Substance Use Topics Alcohol use: No Drug use: Yes Types: Marijuana Comment: daily Review of Symptoms REVIEW OF SYSTEMS See hpi EXAM: BP 112/84 (BP Site: Left Arm, BP Position: Sitting, BP Cuff Size: Large Adult) Pulse (!) 56 Resp 20 Wt 127.5 kg (281 lb) SpO2 97% BMI 39.19 kg/m General Appearance: Well appearing, alert, in no acute distress, well-hydrated, well nourished. and Obese. Lungs: Lungs clear to auscultation. No wheezing, rhonchi, rales.. Heart: RRR without murmur, gallop, or rubs. No ectopy. Health Maintenance List COLORECTAL CANCER SCREENING Never done HBA1C due on 05/08/2022 DIABETIC FOOT EXAM due on 11/08/2022 DILATED RETINAL EXAM due on 01/11/2023 INFLUENZA(1) due on 04/26/2023 COVID-19 VACCINE(2 - Booster for Maricel series) due on 09/05/2023 LDL CHOLESTEROL due on 08/29/2023 BP CONTROLLED (<130/80) due on 09/05/2023 ANNUAL PCP TEAM CHRONIC DISEASE VISIT due on 12/04/2023 DTAP,TDAP,TD(4 - Td or Tdap) due on 04/29/2029 PNEUMOCOCCAL(3 - PPSV23 if available, else PCV20) due on 2040 DEPRESSION ASSESSMENT Completed HEPATITIS B Discontinued URINE ALBUMIN:CREATININE RATIO Discontinued HEPATITIS C SCREENING Discontinued HIV SCREENING Discontinued Data reviewed ASSESSMENT/PLAN: 1. Positional lightheadedness - ICD9: 780.4, ICD10: R42 (primary diagnosis) Will decrease lisinopril to 10mg. Patient to discuss with cardio as well. Keep follow up in January with cardio and february with PCP. But return sooner if symptoms change 2. Hypertension goal BP (blood pressure) < 140/90 - ICD9: 401.9, ICD10: I10 - good control - Recommended regular aerobic exercise. - Recommend home blood pressure monitoring, to bring results in on next visit - see hpi - Goal of BP <130/80 3. RAUL (generalized anxiety disorder) - ICD9: 300.02, ICD10: F41.1 Will continue at this dose of cymbalta. Follow up prn. Jose Hatch PA-C documented in this encounter [facility] 12-06-2022 Miscellaneous Notes Patient notified and voiced understanding. Savi Durand MA TC to patient with no answer. Unable to leave as mailbox has not been set up. Please try again later. ZENY Pollock Let patient know that overall echo appears stable. And blood work is normal. Continue as we discussed. documented in this encounter [facility] 12-04-2022 Note HNO ID: [id number] Author: Jose Hatch PA-C Service: ? Author Type: Physician Scuba Diving Instructor Type: Progress Notes Filed: 12/04/2022 12:57 PM Note Text: Chief Complaint Patient presents with: Dizziness: Starts getting bad ~ 1pm, lasts until ~ 6pm. Feels pressure in head. Sx X 3.5 mths. HPI Michael Youngblood is a 47 year old male who presents here today for dizziness.. Patient states that around 1pm everyday since August he gets dizziness. When it's at its worse he gets pressure between his eyes. Patient states when he moves his head it feels like the room is spinning. Symptoms will last a couple hours. He states his blood sugars have been fine. Around 150-180 when he is dizzy.. Doesn't have a BP machine. Will also get lightheaded. Has felt like he may pass out. He also gets positional lightheadedness. He moves slower, it's not as bad. Patient would also like to try new depression medication. Specifically cymbalta. Last 3 Encounter Pulse Readings: Date: Pulse: 12/04/2022 67 09/05/2022 52 11/08/2021 78 Past medical history, appointments, medications, allergies reviewed. Previous Medical History PAST MEDICAL HISTORY Diagnosis Date Allergic rhinitis 03/12/2013 Bilateral carotid artery stenosis 05/08/2021 US 04/2021: Right 0-19%, Left 20-40% Cataract of both eyes 01/09/2016 Chronic bilateral low back pain with bilateral sciatica 01/15/2011 Chronic pain of both shoulders 03/11/2009 Coronary artery disease due to lipid rich plaque 04/27/2021 Seeing [facility] Diabetic eye exam (HCC) 01/12/2022 Last done 01/11/22 [facility] RAUL (generalized anxiety disorder) 11/04/2019 GERD without esophagitis 11/04/2019 History of kidney stones 01/14/2013 Hypertension goal BP (blood pressure) < 140/90 05/10/2006 Kidney stones 2007 Marijuana use Mixed hyperlipidemia 03/29/2009 Neuropathy 11/04/2019 Hands and feet Obesity, Class II, BMI 35-39.9 Panic attack 11/14/2010 S/P coronary artery stent placement 04/27/2021 2 stents 04/24/2021 Subclavian artery stenosis, right (HCC) 05/08/2021 US 04/2021: 50-99% Type 2 diabetes mellitus with mild 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 Well adult exam 11/04/2019 Last done: 11/04/2019 Previous Surgical History PAST SURGICAL HISTORY Procedure Laterality Date CC CORONARY STENT 08/29/2022 stent to LAD and Mid Circ CORONARY STENT INITIAL 04/24/2021 2 stents placed EGD TRANSORAL BIOPSY SINGLE/MULTIPLE 09/07/2010 gastritis, diffuse, moderate LEFT HEART CATH,PERCUTANEOUS 10/28/2001 Cardiac cath, L heart PAST SURGICAL HISTORY OF remote ?cystoscopy Family History FAMILY HISTORY Problem Relation Age of Onset Hypertension Mother Ovarian cancer Mother Ischemic Heart Disease Father at 45years old Diabetes Maternal Grandmother Alzheimer's Disease No Family History Colon Cancer No Family History Prostate Cancer No Family History Breast Cancer No Family History Hyperlipidemia No Family History Kidney Disease No Family History Seizures No Family History Stroke No Family History Thyroid No Family History Patient Allergies ALLERGIES No Known Allergies Current Medications Current Outpatient Medications on File Prior to Visit Medication Sig omeprazole (PRILOSEC) 20 mg capsule TAKE ONE CAPSULE BY MOUTH ONCE DAILY 1/2 HOUR BEFORE BREAKFAST lisinopril (ZESTRIL, PRINIVIL) 20 mg tablet Take 1 tablet by mouth once daily. atorvastatin (LIPITOR) 40 mg tablet Take 1 tablet by mouth once daily. clopidogrel (PLAVIX) 75 mg tablet Take 1 tablet by mouth once daily. Per [facility]. levothyroxine (LEVOXYL) 25 mcg tablet Take 1 tablet by mouth once daily. Take on empty stomach. For Thyroid insulin glargine (BASAGLAR KWIKPEN U-100 INSULIN) 100 unit/mL (3 mL) Inject 25 Units subcutaneously every morning. Per Endocrine, Dr. Conte insulin aspart U-100 (NOVOLOG FLEXPEN U-100 INSULIN) 100 unit/mL (3 mL) Inject 12 Units subcutaneously three times daily before meals. And 6 units with snacks. Per Endocrine Dr. Conte aspirin 81 mg cap Take 1 tablet by mouth once daily. dulaglutide (TRULICITY) 0.75 mg/0.5 mL pen injector Inject 0.75 mg subcutaneously one time a week. Inject dose once per week. Discard Pen After, Per endo, Dr. Conte metoprolol succinate ER (TOPROL XL) 25 mg 24 hr tablet Take 1 tablet by mouth once daily. Per Cardio. Dr. Harrison isosorbide mononitrate ER (IMDUR) 30 mg 24 hr tablet TAKE 1 TABLET BY MOUTH ONCE DAILY. HOLD FOR SYSTOLIC BLOOD PRESSURE LESS THAN 110 nitroglycerin sublingual (NITROQUICK) 0.4 mg SL tablet DISSOLVE ONE TABLET UNDER THE TONGUE EVERY 5 MINUTES NEEDED FOR CARDIAC CHEST PAIN Blood Pressure Monitor (BLOOD PRESSURE KIT) Take blood pressure a few days a week. Dx: I10 blood sugar diagnostic (BLOOD GLUCOSE TEST) test strip Test blood sugar(s) 2-3 times daily. Dx: Othe (more content not included)... [facility] 12-04-2022 History of Presen t illness Narrative Chief Complaint Patient presents with: Dizziness: Starts getting bad ~ 1pm, lasts until ~ 6pm. Feels pressure in head. Sx X 3.5 mths. HPI Michael Youngblood is a 47 year old male who presents here today for dizziness.. Patient states that around 1pm everyday since August he gets dizziness. When it's at its worse he gets pressure between his eyes. Patient states when he moves his head it feels like the room is spinning. Symptoms will last a couple hours. He states his blood sugars have been fine. Around 150-180 when he is dizzy.. Doesn't have a BP machine. Will also get lightheaded. Has felt like he may pass out. He also gets positional lightheadedness. He moves slower, it's not as bad. Patient would also like to try new depression medication. Specifically cymbalta. Last 3 Encounter Pulse Readings: Date: Pulse: 12/04/2022 67 09/05/2022 52 11/08/2021 78 Past medical history, appointments, medications, allergies reviewed. Previous Medical History PAST MEDICAL HISTORY Diagnosis Date Allergic rhinitis 03/12/2013 Bilateral carotid artery stenosis 05/08/2021 US 04/2021: Right 0-19%, Left 20-40% Cataract of both eyes 01/09/2016 Chronic bilateral low back pain with bilateral sciatica 01/15/2011 Chronic pain of both shoulders 03/11/2009 Coronary artery disease due to lipid rich plaque 04/27/2021 Seeing [facility] Diabetic eye exam ([facility]) 01/12/2022 Last done 01/11/22 [facility] RAUL (generalized anxiety disorder) 11/04/2019 GERD without esophagitis 11/04/2019 History of kidney stones 01/14/2013 Hypertension goal BP (blood pressure) < 140/90 05/10/2006 Kidney stones 2008 Marijuana use Mixed hyperlipidemia 03/29/2009 Neuropathy 11/04/2019 Hands and feet Obesity, Class II, BMI 35-39.9 Panic attack 11/14/2010 S/P coronary artery stent placement 04/27/2021 2 stents 04/24/2021 Subclavian artery stenosis, right ([facility]) 05/08/2021 US 04/2021: 50-99% Type 2 diabetes mellitus with mild 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 Well adult exam 11/04/2019 Last done: 11/04/2019 Previous Surgical History PAST SURGICAL HISTORY Procedure Laterality Date CC CORONARY STENT 08/29/2022 stent to LAD and Mid Circ CORONARY STENT INITIAL 04/24/2021 2 stents placed EGD TRANSORAL BIOPSY SINGLE/MULTIPLE 09/07/2010 gastritis, diffuse, moderate LEFT HEART CATH,PERCUTANEOUS 10/28/2001 Cardiac cath, L heart PAST SURGICAL HISTORY OF remote ?cystoscopy Family History FAMILY HISTORY Problem Relation Age of Onset Hypertension Mother Ovarian cancer Mother Ischemic Heart Disease Father at 45years old Diabetes Maternal Grandmother Alzheimer's Disease No Family History Colon Cancer No Family History Prostate Cancer No Family History Breast Cancer No Family History Hyperlipidemia No Family History Kidney Disease No Family History Seizures No Family History Stroke No Family History Thyroid No Family History Patient Allergies ALLERGIES No Known Allergies Current Medications Current Outpatient Medications on File Prior to Visit Medication Sig omeprazole (PRILOSEC) 20 mg capsule TAKE ONE CAPSULE BY MOUTH ONCE DAILY 1/2 HOUR BEFORE BREAKFAST lisinopril (ZESTRIL, PRINIVIL) 20 mg tablet Take 1 tablet by mouth once daily. atorvastatin (LIPITOR) 40 mg tablet Take 1 tablet by mouth once daily. clopidogrel (PLAVIX) 75 mg tablet Take 1 tablet by mouth once daily. Per [facility]. levothyroxine (LEVOXYL) 25 mcg tablet Take 1 tablet by mouth once daily. Take on empty stomach. For Thyroid insulin glargine (BASAGLAR KWIKPEN U-100 INSULIN) 100 unit/mL (3 mL) Inject 25 Units subcutaneously every morning. Per Endocrine, Dr. Conte insulin aspart U-100 (NOVOLOG FLEXPEN U-100 INSULIN) 100 unit/mL (3 mL) Inject 12 Units subcutaneously three times daily before meals. And 6 units with snacks. Per Endocrine Dr. Conte aspirin 81 mg cap Take 1 tablet by mouth once daily. dulaglutide (TRULICITY) 0.75 mg/0.5 mL pen injector Inject 0.75 mg subcutaneously one time a week. Inject dose once per week. Discard Pen After, Per endo, Dr. Conte metoprolol succinate ER (TOPROL XL) 25 mg 24 hr tablet Take 1 tablet by mouth once daily. Per Cardio. Dr. Harrison isosorbide mononitrate ER (IMDUR) 30 mg 24 hr tablet TAKE 1 TABLET BY MOUTH ONCE DAILY. HOLD FOR SYSTOLIC BLOOD PRESSURE LESS THAN 110 nitroglycerin sublingual (NITROQUICK) 0.4 mg SL tablet DISSOLVE ONE TABLET UNDER THE TONGUE EVERY 5 MINUTES NEEDED FOR CARDIAC CHEST PAIN Blood Pressure Monitor (BLOOD PRESSURE KIT) Take blood pressure a few days a week. Dx: I10 blood sugar diagnostic (BLOOD GLUCOSE TEST) test strip Test blood sugar(s) 2-3 times daily. Dx: Other DM Code E11.3299 Insulin: Yes Lancets lancets Test blood sugar(s) 2-3 times daily. Dx: Other DM Code E11.3299 Insulin: Yes Insulin [place], Disposable, 31 gauge x 1/4 ndle USE ONE PEN NEEDLE PER DOSE 4 times a day, Dx E11.3299 on insulin blood sugar diagnostic (FREESTYLE LITE STRIPS) test strip USE ONE STRIP TWICE DAILY TO CHECK BLOOD GLUCOSE lancets (FREESTYLE LANCETS) 28 gauge Test blood sugar(s) 2 times daily. Dx: Uncontrolled Diabetes 250.02. Insulin: No albuterol HFA (VENTOLIN HFA) 90 mcg/actuation inhaler Inhale 2 Puffs as instructed every 4 hours as needed. Blood-Glucose Meter (FREESTYLE LITE METER) monitoring kit Use to test blood sugar as directed. No current facility-administered medications on file prior to visit. Social History Social History Tobacco Use Smoking status: Never Smokeless tobacco: Former Vaping Use Vaping Use: Never used Substance Use Topics Alcohol use: No Drug use: Yes Types: Marijuana Comment: daily Review of Symptoms REVIEW OF SYSTEMS See hpi EXAM: BP 140/92 Pulse 67 Resp 16 Wt 129.7 kg (286 lb) SpO2 97% BMI 39.89 kg/m General Appearance: Well appearing, alert, in no acute distress, well-hydrated, well nourished. and Obese. Ears: TMs bulging with distorted light reflex. No erythema, External ears normal, canals clear. Neck: Supple, no adenopathy; thyroid symmetric, normal size, no bruits. Lungs: Lungs clear to auscultation. No wheezing, rhonchi, rales.. Heart: RRR without murmur, gallop, or rubs. No ectopy. Extremities: No deformities, edema, skin discoloration, clubbing or cyanosis. Good capillary refill. . Peripheral Pulses: Normal. Neurologic: Symptoms elicited by yarely hallpike maneuver. Worse on R. Otherwise Neuro grossly intact. Health Maintenance List COLORECTAL CANCER SCREENING Never done HBA1C due on 05/08/2022 DEPRESSION ASSESSMENT due on 10/28/2022 DIABETIC FOOT EXAM due on 11/08/2022 INFLUENZA(1) due on 04/26/2023 COVID-19 VACCINE(2 - Booster for Maricel series) due on 09/05/2023 DILATED RETINAL EXAM due on 01/11/2023 LDL CHOLESTEROL due on 08/29/2023 ANNUAL PCP TEAM CHRONIC DISEASE VISIT due on 09/05/2023 BP CONTROLLED (<130/80) due on 09/05/2023 DTAP,TDAP,TD(4 - Td or Tdap) due on 04/29/2029 PNEUMOCOCCAL(3 - PPSV23 if available, else PCV20) due on 2040 HEPATITIS B Discontinued URINE ALBUMIN:CREATININE RATIO Discontinued HEPATITIS C SCREENING Discontinued HIV SCREENING Discontinued Data reviewed Orthostatic vitals wnl. ASSESSMENT/PLAN: 1. Positional lightheadedness - ICD9: 780.4, ICD10: R42 (primary diagnosis) Will check: - ECHO - PERFLUTREN LIPID MICROSPHERES 1.1 MG/ML INJECTION IN NS 10 ML - SODIUM CHLORIDE 0.9 % (FLUSH) INJECTION SYRINGE - US CAROTID ARTERIES [facility] - COMP METABOLIC PANEL - CBC + DIFF - TSH BLD 2. Near syncope - ICD9: 780.2, ICD10: R55 Will check: - ECHO - PERFLUTREN LIPID MICROSPHERES 1.1 MG/ML INJECTION IN NS 10 ML - SODIUM CHLORIDE 0.9 % (FLUSH) INJECTION SYRINGE - US CAROTID ARTERIES [facility] - COMP METABOLIC PANEL - CBC + DIFF - TSH BLD 3. Vertigo - ICD9: 780.4, ICD10: R42 Start flonase and claritin. Follow up in 3 weeks - COMP METABOLIC PANEL - CBC + DIFF - TSH BLD 4. Coronary artery disease due to lipid rich plaque - ICD9: 414.00, 414.3, ICD10: I25.10, I25.83 - ECHO - PERFLUTREN LIPID MICROSPHERES 1.1 MG/ML INJECTION IN NS 10 ML - SODIUM CHLORIDE 0.9 % (FLUSH) INJECTION SYRINGE - US CAROTID ARTERIES [facility] - COMP METABOLIC PANEL - CBC + DIFF - TSH BLD 5. History of non-ST elevation myocardial infarction (NSTEMI) - ICD9: 412, ICD10: I25.2 - ECHO - PERFLUTREN LIPID MICROSPHERES 1.1 MG/ML INJECTION IN NS 10 ML - SODIUM CHLORIDE 0.9 % (FLUSH) INJECTION SYRINGE - US CAROTID ARTERIES [facility] - COMP METABOLIC PANEL - CBC + DIFF - TSH BLD 6. Hypertension goal BP (blood pressure) < 140/90 - ICD9: 401.9, ICD10: I10 - ECHO - PERFLUTREN LIPID MICROSPHERES 1.1 MG/ML INJECTION IN NS 10 ML - SODIUM CHLORIDE 0.9 % (FLUSH) INJECTION SYRINGE - US CAROTID ARTERIES [facility] - COMP METABOLIC PANEL - CBC + DIFF - TSH BLD 7. Subacute sinusitis, unspecified location - ICD9: 461.9, ICD10: J01.90 - Will begin treatment with as per antibiotic as written, see orders Patient to follow up in 3 weeks for recheck. Sooner prn. Advised patient to also discuss with cardio. Jose Hatch PA-C I spent a total of 50 minutes on the date of the service which included preparing to see the patient, [id number] patient care, completing clinical documentation, obtaining and/or reviewing separately obtained history, performing a medically appropriate examination, counseling and educating the patient/family/caregiver, ordering medications, tests, or procedures, and communicating results to the patient/family/caregiver. documented in this encounter [facility] 12-03-2022 Miscellaneous Notes Last office visit: 09/05/22 F/u scheduled: 12/04/22 with Jose Hodge Ma Patient has been identified by name and date of : Yes Requested Prescriptions Pending Prescriptions Disp Refills levothyroxine (LEVOXYL) 25 mcg tablet 90 tablet 0 Sig: Take 1 tablet by mouth once daily. Take on empty stomach. For Thyroid RX INSTRUCTIONS: Patient aware RX will be sent to pharmacy. No need to notify patient. Betsey Hidalgo Pss documented in this encounter [facility] 11-27-2022 Miscellaneous Notes Pharmacy verified in Epic Patient has been identified by name and date of : Yes Patient aware RX will be sent to pharmacy. No need to notify patient. Patient phones for refill(s): Requested Prescriptions Pending Prescriptions Disp Refills omeprazole (PRILOSEC) 20 mg capsule 90 capsule 0 Sig: TAKE ONE CAPSULE BY MOUTH ONCE DAILY 1/2 HOUR BEFORE BREAKFAST Date of last office visit : 09/05/2022 Date of next office visit : 11/30/2022 Last 2 Encounter Wt Readings: Date: Wt: 09/05/2022 126.6 kg (279 lb) 11/08/2021 127.9 kg (282 lb) Not applicable Please advise. Xuan Sinha Pss documented in this encounter [facility] 11-23-2022 Miscellaneous Notes Scan on 11/22/2022 1:47 PM by External Provider: Consultation - PT/OT/Speech Please review recent PT evaluation. Savi Durand MA documented in this encounter [facility] 09-05-2022 Instructions Aysha Simon MD - 09/05/2022 8:42 AM EST Please get labs and urine test done on or after 02/22/2023 prior to your next visit. documented in this encounter [facility] 09-05-2022 History of Presen t illness Narrative Chief Complaint Patient presents with: [facility] F/U [facility] Michael Youngblood is a 47 year old male who presents here today for ER Follow Up.. Patient with hx of DM 2, diabetic retinopathy, RAUL with panic attacks, HTN, Hyperlipidemia, GERD, obesity, marijuana use as well as those reviewed and addressed below and in ROS. Patient presented to [facility] ER on 08/28/2022 with C/O chest pain for about two days. Underwent cath showing blockages in previous stents in the mid LAD and mid Circumflex. Patient had stents placed in both areas. He was not a candidate for beta flo due to low HR. The only new medication added was Plavix 75 mg a day. At the time his LDL was 56 and HDL was 29, T. Chol was 102 and TSH was 2.07. Patient was discharged on 08/30/2022. Patient had resolution of pain when he was placed on heparin prior to stenting and after stenting he had no return of pain. He has been feeling good since being back home. No shortness of breath, orthopnea or leg swelling. Patient continues to follow with Endocrine, Dr. Conte and will see Dr. Harrison in Cardiology this Saturday. Past medical history, appointments, medications, allergies reviewed. Previous Medical History PAST MEDICAL HISTORY Diagnosis Date Allergic rhinitis 03/12/2013 Bilateral carotid artery stenosis 05/08/2021 US 04/2021: Right 0-19%, Left 20-40% Cataract of both eyes 01/09/2016 Chronic bilateral low back pain with bilateral sciatica 01/15/2011 Chronic pain of both shoulders 03/11/2009 Coronary artery disease due to lipid rich plaque 04/27/2021 Seeing [facility] RAUL (generalized anxiety disorder) 11/04/2019 GERD without esophagitis 11/04/2019 History of kidney stones 01/14/2013 Hypertension goal BP (blood pressure) < 140/90 05/10/2006 Kidney stones 2007 Marijuana use Mixed hyperlipidemia 03/29/2009 Neuropathy 11/04/2019 Hands and feet Obesity, Class II, BMI 35-39.9 Panic attack 11/14/2010 S/P coronary artery stent placement 04/27/2021 2 stents 04/24/2021 Subclavian artery stenosis, right (HCC) 05/08/2021 US 04/2021: 50-99% Type 2 diabetes mellitus with mild 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 Well adult exam 11/04/2019 Last done: 11/04/2019 Previous Surgical History PAST SURGICAL HISTORY Procedure Laterality Date CC CORONARY STENT 08/29/2022 stent to LAD and Mid Circ CORONARY STENT INITIAL 04/24/2021 2 stents placed EGD TRANSORAL BIOPSY SINGLE/MULTIPLE 09/07/2010 gastritis, diffuse, moderate LEFT HEART CATH,PERCUTANEOUS 10/28/2001 Cardiac cath, L heart PAST SURGICAL HISTORY OF remote ?cystoscopy Family History FAMILY HISTORY Problem Relation Age of Onset Hypertension Mother Ovarian cancer Mother Ischemic Heart Disease Father at 45years old Diabetes Maternal Grandmother Alzheimer's Disease No Family History Colon Cancer No Family History Prostate Cancer No Family History Breast Cancer No Family History Hyperlipidemia No Family History Kidney Disease No Family History Seizures No Family History Stroke No Family History Thyroid No Family History Patient Allergies ALLERGIES No Known Allergies Current Medications Current Outpatient Medications on File Prior to Visit Medication Sig clopidogrel (PLAVIX) 75 mg tablet Take 1 tablet by mouth once daily. Per [facility]. levothyroxine (LEVOXYL) 25 mcg tablet Take 1 tablet by mouth once daily. Take on empty stomach. For Thyroid omeprazole (PRILOSEC) 20 mg capsule TAKE ONE CAPSULE BY MOUTH ONCE DAILY 1/2 HOUR BEFORE BREAKFAST FLUoxetine (PROZAC) 40 mg capsule Take 1 capsule by mouth once daily. insulin glargine (BASAGLAR KWIKPEN U-100 INSULIN) 100 unit/mL (3 mL) Inject 25 Units subcutaneously every morning. Per Endocrine, Dr. Conte insulin aspart U-100 (NOVOLOG FLEXPEN U-100 INSULIN) 100 unit/mL (3 mL) Inject 12 Units subcutaneously three times daily before meals. And 6 units with snacks. Per Endocrine Dr. Conte lisinopril (ZESTRIL, PRINIVIL) 20 mg tablet Take 1 tablet by mouth once daily. atorvastatin (LIPITOR) 40 mg tablet Take 1 tablet by mouth once daily. aspirin 81 mg cap Take 1 tablet by mouth once daily. dulaglutide (TRULICITY) 0.75 mg/0.5 mL pen injector Inject 0.75 mg subcutaneously one time a week. Inject dose once per week. Discard Pen After, Per endo, Dr. Conte metoprolol succinate ER (TOPROL XL) 25 mg 24 hr tablet Take 1 tablet by mouth once daily. Per Cardio. Dr. Harrison isosorbide mononitrate ER (IMDUR) 30 mg 24 hr tablet TAKE 1 TABLET BY MOUTH ONCE DAILY. HOLD FOR SYSTOLIC BLOOD PRESSURE LESS THAN 110 nitroglycerin sublingual (NITROQUICK) 0.4 mg SL tablet DISSOLVE ONE TABLET UNDER THE TONGUE EVERY 5 MINUTES NEEDED FOR CARDIAC CHEST PAIN Blood Pressure Monitor (BLOOD PRESSURE KIT) Take blood pressure a few days a week. Dx: I10 blood sugar diagnostic (BLOOD GLUCOSE TEST) test strip Test blood sugar(s) 2-3 times daily. Dx: Other DM Code E11.3299 Insulin: Yes Lancets lancets Test blood sugar(s) 2-3 times daily. Dx: Other DM Code E11.3299 Insulin: Yes Insulin [place], Disposable, 31 gauge x 1/4 ndle USE ONE PEN NEEDLE PER DOSE 4 times a day, Dx E11.3299 on insulin blood sugar diagnostic (FREESTYLE LITE STRIPS) test strip USE ONE STRIP TWICE DAILY TO CHECK BLOOD GLUCOSE lancets (FREESTYLE LANCETS) 28 gauge Test blood sugar(s) 2 times daily. Dx: Uncontrolled Diabetes 250.02. Insulin: No albuterol HFA (VENTOLIN HFA) 90 mcg/actuation inhaler Inhale 2 Puffs as instructed every 4 hours as needed. Blood-Glucose Meter (FREESTYLE LITE METER) monitoring kit Use to test blood sugar as directed. No current facility-administered medications on file prior to visit. Social History Social History Tobacco Use Smoking status: Never Smokeless tobacco: Former Vaping Use Vaping Use: Never used Substance Use Topics Alcohol use: No Drug use: Yes Types: Marijuana Comment: daily Review of Symptoms REVIEW OF SYSTEMS GENERAL: No weight loss, malaise or fevers NECK: Negative for lumps, goiter, pain and significant neck swelling RESPIRATORY: Negative for cough, hemoptysis, wheezing, COPD, dyspnea or shortness of breath CARDIOVASCULAR: Negative for chest pain, leg swelling, hypertension, CHF or palpitations GI: No nausea, vomiting, or diarrhea and No heartburn or reflux symptoms : No history of dysuria,blood ENDOCRINE: Negative for frequent episodes of low BS's just on occasion. NEURO: No history of headaches, syncope, paralysis, seizures or tremors EXAM: BP 128/86 (BP Site: Left Arm, BP Position: Sitting, BP Cuff Size: Large Adult) Pulse (!) 52 Resp 16 Wt 126.6 kg (279 lb) BMI 38.91 kg/m Last 4 Encounter Wt Readings: Date: Wt: 09/05/2022 126.6 kg (279 lb) 11/08/2021 127.9 kg (282 lb) 08/28/2021 125.2 kg (276 lb) 04/28/2021 113.4 kg (250 lb) Last 10 Encounter Pulse Readings: Date: Pulse: 09/05/2022 52 11/08/2021 78 08/28/2021 62 04/28/2021 80 04/21/2021 62 11/30/2020 60 11/16/2019 57 11/04/2019 60 10/20/2019 76 12/16/2018 60 General Appearance: Well appearing, alert, in no acute distress, well-hydrated, well nourished. and Obese. Eyes: Anicteric sclera. Pupils are equally round and reactive to light. Extraocular movements are intact. . Neck: Supple, no adenopathy; thyroid symmetric, normal size, no bruits. Lungs: Lungs clear to auscultation. No wheezing, rhonchi, rales.. Heart: RRR without murmur, gallop, or rubs. No ectopy. Abdomen: Normal abdominal exam, Abdomen soft, non-tender. Bowel sounds normal. No masses, organomegaly. Extremities: No deformities, edema, skin discoloration, Peripheral Pulses: Normal. Neurologic: Gait normal. Sensation to light touch and crainal nerves 2-12 intact.. Health Maintenance List HEPATITIS B(1 of 3 - 3-dose series) Never done COVID-19 VACCINE(2 - Booster for Maricel series) due on 06/16/2021 DEPRESSION ASSESSMENT Never done BP CONTROLLED (<130/80) due on 04/21/2022 HBA1C due on 05/08/2022 INFLUENZA(1) due on 06/28/2022 COLORECTAL CANCER SCREENING due on 11/08/2022 LDL CHOLESTEROL due on 11/08/2022 DIABETIC FOOT EXAM due on 11/08/2022 ANNUAL PCP TEAM CHRONIC DISEASE VISIT due on 11/08/2022 DILATED RETINAL EXAM due on 01/11/2023 DTAP,TDAP,TD(4 - Td or Tdap) due on 04/29/2029 PNEUMOCOCCAL(3 - PPSV23 if available, else PCV20) due on 2040 URINE ALBUMIN:CREATININE RATIO Discontinued HEPATITIS C SCREENING Discontinued HIV SCREENING Discontinued Data reviewed [facility] discharge summary 08/30/2022 A/P ASSESSMENT/PLAN: 1. History of non-ST elevation myocardial infarction (NSTEMI) - ICD9: 412, ICD10: I25.2 (primary diagnosis) - patient to cont current management per cardiology. 2. Coronary artery disease due to lipid rich plaque - ICD9: 414.00, 414.3, ICD10: I25.10, I25.83 - asper #1 3. 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 Discussed the importance of this. 4. Diabetic eye exam (HCC) - ICD9: V72.0, 250.00, ICD10: Z01.00, E11.9 - up to date 5. Hypertension goal BP (blood pressure) < 140/90 - ICD9: 401.9, ICD10: I10 - good control - Continue current medication(s) - Recommended regular aerobic exercise. - Recommend home blood pressure monitoring, to bring results in on next visit - Goal of BP <130/80 6. GERD without esophagitis - ICD9: 530.81, ICD10: K21.9 - Continue treatment with Prilosec 20 mg QD 7. Mixed hyperlipidemia - ICD9: 272.2, ICD10: E78.2 - good control - Continue current medication. - Encouraged following a low fat, low cholesterol diet. - Discussed the benefits of regular aerobic exercise and weight loss. - Encouraged following a low carbohydrate, healthy oil intake diet. 8. Neuropathy - ICD9: 355.9, ICD10: G62.9 - cont curretn Tx. 9. Bilateral carotid artery stenosis - ICD9: 433.10, 433.30, ICD10: I65.23 - will check US with recent NSTMI. 10. Subclavian artery stenosis, right (HCC) - ICD9: 447.1, ICD10: I77.1 - as per #9 11. RAUL (generalized anxiety disorder) - ICD9: 300.02, ICD10: F41.1 - patient has been doing ok off Prozac. 12. Obesity, Class II, BMI 35-39.9 - ICD9: 278.00, ICD10: E66.9 Weight decreasing - Behavioral intervention Discussed the importance of reduced weight. 3. Acquired hypothyroidism - ICD9: 244.9, ICD10: E03.9 - Instructed patient on importance of taking on an empty stomach either first thing in the morning or at bedtime. - continue current dose of Synthroid F/u 6 months WAE check CMP, Lipid, UA, A1c, urine micro albumin, CBC, B12, Mg, TSH prior Aysha Simon MD documented in this encounter [facility] 09-03-2022 History of Presen t illness Narrative 2nd attempt to contact pt for TCM. No answer and no vm. Corry Ho LPN Attempted to contact pt. No answer and no vm. Will need to try again. Need to do TCM questions with pt. Pt has appointment 09/05/[address] Simon. Discharge Summary is on nurse desk in Jose's office. Corry Ho LPN ' documented in this encounter [facility] 08-27-2022 Miscellaneous Notes Patient has been identified by name and date of : Yes Requested Prescriptions Pending Prescriptions Disp Refills levothyroxine (LEVOXYL) 25 mcg tablet 90 tablet 0 Sig: Take 1 tablet by mouth once daily. Take on empty stomach. For Thyroid omeprazole (PRILOSEC) 20 mg capsule 90 capsule 0 Sig: TAKE ONE CAPSULE BY MOUTH ONCE DAILY 1/2 HOUR BEFORE BREAKFAST RX INSTRUCTIONS: Patient aware RX will be sent to pharmacy. No need to notify patient. Savi Durand MA Brittnee: 10/2021 Nov; 08/2022 Last refill: 04/2022 Pharmacy verified in Epic Patient has been identified by name and date of : Yes Patient aware RX will be sent to pharmacy. No need to notify patient. Patient phones for refill(s): Requested Prescriptions Pending Prescriptions Disp Refills levothyroxine (LEVOXYL) 25 mcg tablet 90 tablet 0 Sig: Take 1 tablet by mouth once daily. Take on empty stomach. For Thyroid omeprazole (PRILOSEC) 20 mg capsule 90 capsule 0 Sig: TAKE ONE CAPSULE BY MOUTH ONCE DAILY 1/2 HOUR BEFORE BREAKFAST Date of last office visit : Visit date not found Date of next office visit : Visit date not found Last 2 Encounter Wt Readings: Date: Wt: 11/08/2021 127.9 kg (282 lb) 08/28/2021 125.2 kg (276 lb) Please advise. Xuan Sinha Pss documented in this encounter [facility] 05-24-2022 Miscellaneous Notes Please help to reschedule. Patient has been identified by name and date of : Yes Pending Prescriptions Disp Refills LEVOTHYROXINE 25 MCG TABLET 90 tablet 3 Sig: Take 1 tablet by mouth once daily. Take on empty stomach. For Thyroid RITU: No OMEPRAZOLE 20 MG CAPSULE,DELAYED RELEASE 90 capsule 3 Sig: TAKE ONE CAPSULE BY MOUTH ONCE DAILY 1/2 HOUR BEFORE BREAKFAST RITU: No FLUOXETINE 40 MG CAPSULE 30 capsule 5 Sig: Take 1 capsule by mouth once daily. RITU: No RX INSTRUCTIONS: Patient aware RX will be sent to pharmacy. No need to notify patient. Savi Durand MA Brittnee: 10/2021 Nov: 04/2022 cancelled - needs rescheduled. Last refill: 08/2021 Patient has been identified by name and date of : Yes Pending Prescriptions Disp Refills LEVOTHYROXINE 25 MCG TABLET 90 tablet 3 Sig: Take 1 tablet by mouth once daily. Take on empty stomach. For Thyroid RITU: No OMEPRAZOLE 20 MG CAPSULE,DELAYED RELEASE 90 capsule 3 Sig: TAKE ONE CAPSULE BY MOUTH ONCE DAILY 1/2 HOUR BEFORE BREAKFAST RITU: No FLUOXETINE 40 MG CAPSULE 30 capsule 5 Sig: Take 1 capsule by mouth once daily. RITU: No RX INSTRUCTIONS: Patient aware RX will be sent to pharmacy. No need to notify patient. [facility] this encounter [facility] documented as of this encounter (statuses as of 05/24/2022) [facility] History of Past illness Narrative* Problem Noted Date Resolved Date Uncontrolled type 2 diabetes mellitus with complication, without long-term current use of insulin 09/29/2013 05/06/2017 Last Assessment & Plan: Is off all med since 6 month, He was not working for sometime and is going thru a divorce. Lost his insurance and has not been able to take care of his medical needs Just now started getting on his feet. He is not checking his sugars. Right flank pain 01/14/2013 05/06/2017 Hematuria 01/14/2013 05/06/2017 Obesity 01/14/2013 05/06/2017 Diabetes mellitus type 2, un controlled, without complications 12/11/2012 05/06/2017 Unspecified gastritis and ga stroduodenitis without mention of hemorrhage 09/07/2010 05/06/2017 Carpal tunnel syndrome, bilateral 09/01/2010 05/06/2017 Type II or unspecified type diabetes mellitus without mention of complication, uncontrolled 03/29/2009 09/29/2013 Obesity, unspecified 05/10/2006 05/06/2017 Last Assessment & Plan: Will pursue this with him in the future it seems that he is trying his best to eat right, documented as of this encounter (statuses as of 08/27/2022) [facility] History of Past illness Narrative* Problem Noted Date Resolved Date Uncontrolled type 2 diabetes mellitus with complication, without long-term current use of insulin 09/29/2013 05/06/2017 Last Assessment & Plan: Is off all med since 6 month, He was not working for sometime and is going thru a divorce. Lost his insurance and has not been able to take care of his medical needs Just now started getting on his feet. He is not checking his sugars. Right flank pain 01/14/2013 05/06/2017 Hematuria 01/14/2013 05/06/2017 Obesity 01/14/2013 05/06/2017 Diabetes mellitus type 2, un controlled, without complications 12/11/2012 05/06/2017 Unspecified gastritis and ga stroduodenitis without mention of hemorrhage 09/07/2010 05/06/2017 Carpal tunnel syndrome, bilateral 09/01/2010 05/06/2017 Type II or unspecified type diabetes mellitus without mention of complication, uncontrolled 03/29/2009 09/29/2013 Obesity, unspecified 05/10/2006 05/06/2017 Last Assessment & Plan: Will pursue this with him in the future it seems that he is trying his best to eat right, documented as of this encounter (statuses as of 09/03/2022) [facility]12-03-2013 History of Past illness Narrative* Problem Noted Date Resolved Date Uncontrolled type 2 diabetes mellitus with complication, without long-term current use of insulin 09/29/2013 05/06/2017 Last Assessment & Plan: Is off all med since 6 month, He was not working for sometime and is going thru a divorce. Lost his insurance and has not been able to take care of his medical needs Just now started getting on his feet. He is not checking his sugars. Right flank pain 01/14/2013 05/06/2017 Hematuria 01/14/2013 05/06/2017 Obesity 01/14/2013 05/06/2017 Diabetes mellitus type 2, un controlled, without complications 12/11/2012 05/06/2017 Unspecified gastritis and ga stroduodenitis without mention of hemorrhage 09/07/2010 05/06/2017 Carpal tunnel syndrome, bilateral 09/01/2010 05/06/2017 Type II or unspecified type diabetes mellitus without mention of complication, uncontrolled 03/29/2009 09/29/2013 Obesity, unspecified 05/10/2006 05/06/2017 Last Assessment & Plan: Will pursue this with him in the future it seems that he is trying his best to eat right, documented as of this encounter (statuses as of 09/06/2022) [facility]12-03-2013 History of Past illness Narrative* Problem Noted Date Resolved Date Uncontrolled type 2 diabetes mellitus with complication, without long-term current use of insulin 09/29/2013 05/06/2017 Last Assessment & Plan: Is off all med since 6 month, He was not working for sometime and is going thru a divorce. Lost his insurance and has not been able to take care of his medical needs Just now started getting on his feet. He is not checking his sugars. Right flank pain 01/14/2013 05/06/2017 Hematuria 01/14/2013 05/06/2017 Obesity 01/14/2013 05/06/2017 Diabetes mellitus type 2, un controlled, without complications 12/11/2012 05/06/2017 Unspecified gastritis and ga stroduodenitis without mention of hemorrhage 09/07/2010 05/06/2017 Carpal tunnel syndrome, bilateral 09/01/2010 05/06/2017 Type II or unspecified type diabetes mellitus without mention of complication, uncontrolled 03/29/2009 09/29/2013 Obesity, unspecified 05/10/2006 05/06/2017 Last Assessment & Plan: Will pursue this with him in the future it seems that he is trying his best to eat right, documented as of this encounter (statuses as of 11/25/2022) [facility]12-[facility]2013 History of Past illness Narrative* Problem Noted Date Resolved Date Uncontrolled type 2 diabetes mellitus with complication, without long-term current use of insulin 09/29/2013 05/06/2017 Last Assessment & Plan: Is off all med since 6 month, He was not working for sometime and is going thru a divorce. Lost his insurance and has not been able to take care of his medical needs Just now started getting on his feet. He is not checking his sugars. Right flank pain 01/14/2013 05/06/2017 Hematuria 01/14/2013 05/06/2017 Obesity 01/14/2013 05/06/2017 Diabetes mellitus type 2, un controlled, without complications 12/11/2012 05/06/2017 Unspecified gastritis and ga stroduodenitis without mention of hemorrhage 09/07/2010 05/06/2017 Carpal tunnel syndrome, bilateral 09/01/2010 05/06/2017 Type II or unspecified type diabetes mellitus without mention of complication, uncontrolled 03/29/2009 09/29/2013 Obesity, unspecified 05/10/2006 05/06/2017 Last Assessment & Plan: Will pursue this with him in the future it seems that he is trying his best to eat right, documented as of this encounter (statuses as of 11/27/2022) [facility]12-[facility]2013 History of Past illness Narrative* Problem Noted Date Resolved Date Uncontrolled type 2 diabetes mellitus with complication, without long-term current use of insulin 09/29/2013 05/06/2017 Last Assessment & Plan: Is off all med since 6 month, He was not working for sometime and is going thru a divorce. Lost his insurance and has not been able to take care of his medical needs Just now started getting on his feet. He is not checking his sugars. Right flank pain 01/14/2013 05/06/2017 Hematuria 01/14/2013 05/06/2017 Obesity 01/14/2013 05/06/2017 Diabetes mellitus type 2, un controlled, without complications 12/11/2012 05/06/2017 Unspecified gastritis and ga stroduodenitis without mention of hemorrhage 09/07/2010 05/06/2017 Carpal tunnel syndrome, bilateral 09/01/2010 05/06/2017 Type II or unspecified type diabetes mellitus without mention of complication, uncontrolled 03/29/2009 09/29/2013 Obesity, unspecified 05/10/2006 05/06/2017 Last Assessment & Plan: Will pursue this with him in the future it seems that he is trying his best to eat right, documented as of this encounter (statuses as of 12/04/2022) [facility]12[facility]2013 History of Past illness Narrative* Problem Noted Date Resolved Date Uncontrolled type 2 diabetes mellitus with complication, without long-term current use of insulin 09/29/2013 05/06/2017 Last Assessment & Plan: Is off all med since 6 month, He was not working for sometime and is going thru a divorce. Lost his insurance and has not been able to take care of his medical needs Just now started getting on his feet. He is not checking his sugars. Right flank pain 01/14/2013 05/06/2017 Hematuria 01/14/2013 05/06/2017 Obesity 01/14/2013 05/06/2017 Diabetes mellitus type 2, un controlled, without complications 12/11/2012 05/06/2017 Unspecified gastritis and ga stroduodenitis without mention of hemorrhage 09/07/2010 05/06/2017 Carpal tunnel syndrome, bilateral 09/01/2010 05/06/2017 Type II or unspecified type diabetes mellitus without mention of complication, uncontrolled 03/29/2009 09/29/2013 Obesity, unspecified 05/10/2006 05/06/2017 Last Assessment & Plan: Will pursue this with him in the future it seems that he is trying his best to eat right, documented as of this encounter (statuses as of 12/04/2022) [facility]12[facility]03[facility]2013 History of Past illness Narrative* Problem Noted Date Resolved Date Uncontrolled type 2 diabetes mellitus with complication, without long-term current use of insulin 09/29/2013 05/06/2017 Last Assessment & Plan: Is off all med since 6 month, He was not working for sometime and is going thru a divorce. Lost his insurance and has not been able to take care of his medical needs Just now started getting on his feet. He is not checking his sugars. Right flank pain 01/14/2013 05/06/2017 Hematuria 01/14/2013 05/06/2017 Obesity 01/14/2013 05/06/2017 Diabetes mellitus type 2, un controlled, without complications 12/11/2012 05/06/2017 Unspecified gastritis and ga stroduodenitis without mention of hemorrhage 09/07/2010 05/06/2017 Carpal tunnel syndrome, bilateral 09/01/2010 05/06/2017 Type II or unspecified type diabetes mellitus without mention of complication, uncontrolled 03/29/2009 09/29/2013 Obesity, unspecified 05/10/2006 05/06/2017 Last Assessment & Plan: Will pursue this with him in the future it seems that he is trying his best to eat right, documented as of this encounter (statuses as of 12/06/2022) [facility] History of Past illness Narrative* Problem Noted Date Resolved Date Uncontrolled type 2 diabetes mellitus with complication, without long-term current use of insulin 09/29/2013 05/06/2017 Last Assessment & Plan: Is off all med since 6 month, He was not working for sometime and is going thru a divorce. Lost his insurance and has not been able to take care of his medical needs Just now started getting on his feet. He is not checking his sugars. Right flank pain 01/14/2013 05/06/2017 Hematuria 01/14/2013 05/06/2017 Obesity 01/14/2013 05/06/2017 Diabetes mellitus type 2, un controlled, without complications 12/11/2012 05/06/2017 Unspecified gastritis and ga stroduodenitis without mention of hemorrhage 09/07/2010 05/06/2017 Carpal tunnel syndrome, bilateral 09/01/2010 05/06/2017 Type II or unspecified type diabetes mellitus without mention of complication, uncontrolled 03/29/2009 09/29/2013 Obesity, unspecified 05/10/2006 05/06/2017 Last Assessment & Plan: Will pursue this with him in the future it seems that he is trying his best to eat right, documented as of this encounter (statuses as of 12/25/2022) [facility]12[facility]2013 History of Past illness Narrative* Problem Noted Date Resolved Date Uncontrolled type 2 diabetes mellitus with complication, without long-term current use of insulin 09/29/2013 05/06/2017 Last Assessment & Plan: Is off all med since 6 month, He was not working for sometime and is going thru a divorce. Lost his insurance and has not been able to take care of his medical needs Just now started getting on his feet. He is not checking his sugars. Right flank pain 01/14/2013 05/06/2017 Hematuria 01/14/2013 05/06/2017 Obesity 01/14/2013 05/06/2017 Diabetes mellitus type 2, un controlled, without complications 12/11/2012 05/06/2017 Unspecified gastritis and ga stroduodenitis without mention of hemorrhage 09/07/2010 05/06/2017 Carpal tunnel syndrome, bilateral 09/01/2010 05/06/2017 Type II or unspecified type diabetes mellitus without mention of complication, uncontrolled 03/29/2009 09/29/2013 Obesity, unspecified 05/10/2006 05/06/2017 Last Assessment & Plan: Will pursue this with him in the future it seems that he is trying his best to eat right, documented as of this encounter (statuses as of 01/03/2023) [facility] History of Past illness Narrative* Problem Noted Date Resolved Date Uncontrolled type 2 diabetes mellitus with complication, without long-term current use of insulin 09/29/2013 05/06/2017 Last Assessment & Plan: Is off all med since 6 month, He was not working for sometime and is going thru a divorce. Lost his insurance and has not been able to take care of his medical needs Just now started getting on his feet. He is not checking his sugars. Right flank pain 01/14/2013 05/06/2017 Hematuria 01/14/2013 05/06/2017 Obesity 01/14/2013 05/06/2017 Diabetes mellitus type 2, un controlled, without complications 12/11/2012 05/06/2017 Unspecified gastritis and ga stroduodenitis without mention of hemorrhage 09/07/2010 05/06/2017 Carpal tunnel syndrome, bilateral 09/01/2010 05/06/2017 Type II or unspecified type diabetes mellitus without mention of complication, uncontrolled 03/29/2009 09/29/2013 Obesity, unspecified 05/10/2006 05/06/2017 Last Assessment & Plan: Will pursue this with him in the future it seems that he is trying his best to eat right, documented as of this encounter (statuses as of 01/03/2023) [facility]12[facility] History of Past illness Narrative* Problem Noted Date Resolved Date Uncontrolled type 2 diabetes mellitus with complication, without long-term current use of insulin 09/29/2013 05/06/2017 Last Assessment & Plan: Is off all med since 6 month, He was not working for sometime and is going thru a divorce. Lost his insurance and has not been able to take care of his medical needs Just now started getting on his feet. He is not checking his sugars. Right flank pain 01/14/2013 05/06/2017 Hematuria 01/14/2013 05/06/2017 Obesity 01/14/2013 05/06/2017 Diabetes mellitus type 2, un controlled, without complications 12/11/2012 05/06/2017 Unspecified gastritis and ga stroduodenitis without mention of hemorrhage 09/07/2010 05/06/2017 Carpal tunnel syndrome, bilateral 09/01/2010 05/06/2017 Type II or unspecified type diabetes mellitus without mention of complication, uncontrolled 03/29/2009 09/29/2013 Obesity, unspecified 05/10/2006 05/06/2017 Last Assessment & Plan: Will pursue this with him in the future it seems that he is trying his best to eat right, documented as of this encounter (statuses as of 01/25/2023) [facility]12[facility] History of Past illness Narrative* Problem Noted Date Resolved Date Uncontrolled type 2 diabetes mellitus with complication, without long-term current use of insulin 09/29/2013 05/06/2017 Last Assessment & Plan: Is off all med since 6 month, He was not working for sometime and is going thru a divorce. Lost his insurance and has not been able to take care of his medical needs Just now started getting on his feet. He is not checking his sugars. Right flank pain 01/14/2013 05/06/2017 Hematuria 01/14/2013 05/06/2017 Obesity 01/14/2013 05/06/2017 Diabetes mellitus type 2, un controlled, without complications 12/11/2012 05/06/2017 Unspecified gastritis and ga stroduodenitis without mention of hemorrhage 09/07/2010 05/06/2017 Carpal tunnel syndrome, bilateral 09/01/2010 05/06/2017 Type II or unspecified type diabetes mellitus without mention of complication, uncontrolled 03/29/2009 09/29/2013 Obesity, unspecified 05/10/2006 05/06/2017 Last Assessment & Plan: Will pursue this with him in the future it seems that he is trying his best to eat right, documented as of this encounter (statuses as of 02/08/2023) [facility] History of Past illness Narrative* Problem Noted Date Resolved Date Uncontrolled type 2 diabetes mellitus with complication, without long-term current use of insulin 09/29/2013 05/06/2017 Last Assessment & Plan: Is off all med since 6 month, He was not working for sometime and is going thru a divorce. Lost his insurance and has not been able to take care of his medical needs Just now started getting on his feet. He is not checking his sugars. Right flank pain 01/14/2013 05/06/2017 Hematuria 01/14/2013 05/06/2017 Obesity 01/14/2013 05/06/2017 Diabetes mellitus type 2, un controlled, without complications 12/11/2012 05/06/2017 Unspecified gastritis and ga stroduodenitis without mention of hemorrhage 09/07/2010 05/06/2017 Carpal tunnel syndrome, bilateral 09/01/2010 05/06/2017 Type II or unspecified type diabetes mellitus without mention of complication, uncontrolled 03/29/2009 09/29/2013 Obesity, unspecified 05/10/2006 05/06/2017 Last Assessment & Plan: Will pursue this with him in the future it seems that he is trying his best to eat right, documented as of this encounter (statuses as of 03/05/2023) [facility] History of Past illness Narrative* Problem Noted Date Diagnosed Date Resolved Date Uncontrolled type 2 diabetes mellitus with complication, without long-term current use of insulin 09/29/2013 05/06/2017 Last Assessment & Plan: Is off all med since 6 month, He was not working for sometime and is going thru a divorce. Lost his insurance and has not been able to take care of his medical needs Just now started getting on his feet. He is not checking his sugars. Right flank pain 01/14/2013 05/06/2017 Hematuria 01/14/2013 05/06/2017 Obesity 01/14/2013 05/06/2017 Diabetes mellitus type 2, un controlled, without complications 12/11/2012 05/06/2017 Unspecified gastritis and ga stroduodenitis without mention of hemorrhage 09/07/2010 05/06/2017 Carpal tunnel syndrome, bilateral 09/01/2010 05/06/2017 Type II or unspecified type diabetes mellitus without mention of complication, uncontrolled 03/29/2009 09/29/2013 Obesity, unspecified 05/10/2006 017 Last Assessment & Plan: Will pursue this with him in the future it seems that he is trying his best to eat right, documented as of this encounter (statuses as of 05/12/2023) [facility] History of Past illness Narrative* Problem Noted Date Diagnosed Date Resolved Date Uncontrolled type 2 diabetes mellitus with complication, without long-term current use of insulin 09/29/2013 05/06/2017 Last Assessment & Plan: Is off all med since 6 month, He was not working for sometime and is going thru a divorce. Lost his insurance and has not been able to take care of his medical needs Just now started getting on his feet. He is not checking his sugars. Right flank pain 01/14/2013 05/06/2017 Hematuria 01/14/2013 05/06/2017 Obesity 01/14/2013 05/06/2017 Diabetes mellitus type 2, un controlled, without complications 12/11/2012 05/06/2017 Unspecified gastritis and ga stroduodenitis without mention of hemorrhage 09/07/2010 05/06/2017 Carpal tunnel syndrome, bilateral 09/01/2010 05/06/2017 Type II or unspecified type diabetes mellitus without mention of complication, uncontrolled 03/29/2009 09/29/2013 Obesity, unspecified 05/10/2006 017 Last Assessment & Plan: Will pursue this with him in the future it seems that he is trying his best to eat right, documented as of this encounter (statuses as of 05/29/2023) [facility]2013 History of Past illness Narrative* Problem Noted Date Diagnosed Date Resolved Date Uncontrolled type 2 diabetes mellitus with complication, without long-term current use of insulin 09/29/2013 05/06/2017 Last Assessment & Plan: Is off all med since 6 month, He was not working for sometime and is going thru a divorce. Lost his insurance and has not been able to take care of his medical needs Just now started getting on his feet. He is not checking his sugars. Right flank pain 01/14/2013 05/06/2017 Hematuria 01/14/2013 05/06/2017 Obesity 01/14/2013 05/06/2017 Diabetes mellitus type 2, un controlled, without complications 12/11/2012 05/06/2017 Unspecified gastritis and ga stroduodenitis without mention of hemorrhage 09/07/2010 05/06/2017 Carpal tunnel syndrome, bilateral 09/01/2010 05/06/2017 Type II or unspecified type diabetes mellitus without mention of complication, uncontrolled 03/29/2009 09/29/2013 Obesity, unspecified 05/10/2006 017 Last Assessment & Plan: Will pursue this with him in the future it seems that he is trying his best to eat right, documented as of this encounter (statuses as of 05/30/2023) [facility] History of Past illness Narrative* Problem Noted Date Diagnosed Date Resolved Date Uncontrolled type 2 diabetes mellitus with complication, without long-term current use of insulin 09/29/2013 05/06/2017 Last Assessment & Plan: Is off all med since 6 month, He was not working for sometime and is going thru a divorce. Lost his insurance and has not been able to take care of his medical needs Just now started getting on his feet. He is not checking his sugars. Right flank pain 01/14/2013 05/06/2017 Hematuria 01/14/2013 05/06/2017 Obesity 01/14/2013 05/06/2017 Diabetes mellitus type 2, un controlled, without complications 12/11/2012 05/06/2017 Unspecified gastritis and ga stroduodenitis without mention of hemorrhage 09/07/2010 05/06/2017 Carpal tunnel syndrome, bilateral 09/01/2010 05/06/2017 Type II or unspecified type diabetes mellitus without mention of complication, uncontrolled 03/29/2009 09/29/2013 Obesity, unspecified 05/10/2006 017 Last Assessment & Plan: Will pursue this with him in the future it seems that he is trying his best to eat right, documented as of this encounter (statuses as of 06/12/2023) [facility] History of Past illness Narrative* Problem Noted Date Diagnosed Date Resolved Date Uncontrolled type 2 diabetes mellitus with complication, without long-term current use of insulin 09/29/2013 05/06/2017 Last Assessment & Plan: Is off all med since 6 month, He was not working for sometime and is going thru a divorce. Lost his insurance and has not been able to take care of his medical needs Just now started getting on his feet. He is not checking his sugars. Right flank pain 01/14/2013 05/06/2017 Hematuria 01/14/2013 05/06/2017 Obesity 01/14/2013 05/06/2017 Diabetes mellitus type 2, un controlled, without complications 12/11/2012 05/06/2017 Unspecified gastritis and ga stroduodenitis without mention of hemorrhage 09/07/2010 05/06/2017 Carpal tunnel syndrome, bilateral 09/01/2010 05/06/2017 Type II or unspecified type diabetes mellitus without mention of complication, uncontrolled 03/29/2009 09/29/2013 Obesity, unspecified 05/10/2006 017 Last Assessment & Plan: Will pursue this with him in the future it seems that he is trying his best to eat right, documented as of this encounter (statuses as of 06/14/2023) [facility] History of Past illness Narrative* Problem Noted Date Diagnosed Date Resolved Date Uncontrolled type 2 diabetes mellitus with complication, without long-term current use of insulin 09/29/2013 05/06/2017 Last Assessment & Plan: Is off all med since 6 month, He was not working for sometime and is going thru a divorce. Lost his insurance and has not been able to take care of his medical needs Just now started getting on his feet. He is not checking his sugars. Right flank pain 01/14/2013 05/06/2017 Hematuria 01/14/2013 05/06/2017 Obesity 01/14/2013 05/06/2017 Diabetes mellitus type 2, un controlled, without complications 12/11/2012 05/06/2017 Unspecified gastritis and ga stroduodenitis without mention of hemorrhage 09/07/2010 05/06/2017 Carpal tunnel syndrome, bilateral 09/01/2010 05/06/2017 Type II or unspecified type diabetes mellitus without mention of complication, uncontrolled 03/29/2009 09/29/2013 Obesity, unspecified 05/10/2006 017 Last Assessment & Plan: Will pursue this with him in the future it seems that he is trying his best to eat right, documented as of this encounter (statuses as of 07/08/2023) [facility] History of Past illness Narrative* Problem Noted Date Diagnosed Date Resolved Date Uncontrolled type 2 diabetes mellitus with complication, without long-term current use of insulin 09/29/2013 05/06/2017 Last Assessment & Plan: Is off all med since 6 month, He was not working for sometime and is going thru a divorce. Lost his insurance and has not been able to take care of his medical needs Just now started getting on his feet. He is not checking his sugars. Right flank pain 01/14/2013 05/06/2017 Hematuria 01/14/2013 05/06/2017 Obesity 01/14/2013 05/06/2017 Diabetes mellitus type 2, un controlled, without complications 12/11/2012 05/06/2017 Unspecified gastritis and ga stroduodenitis without mention of hemorrhage 09/07/2010 05/06/2017 Carpal tunnel syndrome, bilateral 09/01/2010 05/06/2017 Type II or unspecified type diabetes mellitus without mention of complication, uncontrolled 03/29/2009 09/29/2013 Obesity, unspecified 05/10/2006 017 Last Assessment & Plan: Will pursue this with him in the future it seems that he is trying his best to eat right, documented as of this encounter (statuses as of 08/21/2023) [facility] History of Past illness Narrative* Problem Noted Date Diagnosed Date Resolved Date Uncontrolled type 2 diabetes mellitus with complication, without long-term current use of insulin 09/29/2013 05/06/2017 Last Assessment & Plan: Is off all med since 6 month, He was not working for sometime and is going thru a divorce. Lost his insurance and has not been able to take care of his medical needs Just now started getting on his feet. He is not checking his sugars. Right flank pain 01/14/2013 05/06/2017 Hematuria 01/14/2013 05/06/2017 Obesity 01/14/2013 05/06/2017 Diabetes mellitus type 2, un controlled, without complications 12/11/2012 05/06/2017 Unspecified gastritis and ga stroduodenitis without mention of hemorrhage 09/07/2010 05/06/2017 Carpal tunnel syndrome, bilateral 09/01/2010 05/06/2017 Type II or unspecified type diabetes mellitus without mention of complication, uncontrolled 03/29/2009 09/29/2013 Obesity, unspecified 05/10/2006 017 Last Assessment & Plan: Will pursue this with him in the future it seems that he is trying his best to eat right, documented as of this encounter (statuses as of 09/14/2023) [facility]12-03-2013 History of Past illness Narrative* Problem Noted Date Diagnosed Date Resolved Date Uncontrolled type 2 diabetes mellitus with complication, without long-term current use of insulin 09/29/2013 05/06/2017 Last Assessment & Plan: Is off all med since 6 month, He was not working for sometime and is going thru a divorce. Lost his insurance and has not been able to take care of his medical needs Just now started getting on his feet. He is not checking his sugars. Right flank pain 01/14/2013 05/06/2017 Hematuria 01/14/2013 05/06/2017 Obesity 01/14/2013 05/06/2017 Diabetes mellitus type 2, un controlled, without complications 12/11/2012 05/06/2017 Unspecified gastritis and ga stroduodenitis without mention of hemorrhage 09/07/2010 05/06/2017 Carpal tunnel syndrome, bilateral 09/01/2010 05/06/2017 Type II or unspecified type diabetes mellitus without mention of complication, uncontrolled 03/29/2009 09/29/2013 Obesity, unspecified 05/10/2006 017 Last Assessment & Plan: Will pursue this with him in the future it seems that he is trying his best to eat right, documented as of this encounter (statuses as of 10/04/2023) [facility] Diagnosis History of non-ST elevation myocardial infarction (NSTEMI)- Primary Old myocardial infarction Coronary artery disease due to lipid rich plaque 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, unspecified laterality, unspecified whether superintendent [employer] insulin use (HCC) Diabetic eye exam (HCC) Type II or unspecified type diabetes mellitus without mention of complication, not stated as uncontrolled Hypertension goal BP (blood pressure) < 140/90 Unspecified essential hypertension GERD without esophagitis Esophageal reflux Mixed hyperlipidemia Neuropathy Mononeuritis of unspecified site Bilateral carotid artery stenosis Occlusion and stenosis of carotid artery without mention of cerebral infarction Subclavian artery stenosis, right (HCC) Atherosclerosis of other specified arteries RAUL (generalized anxiety disorder) Generalized anxiety disorder Obesity, Class II, BMI 35-39.9 Obesity, unspecified Medication management Encounter for long-term (current) use of other medications Acquired hypothyroidism Unspecified hypothyroidism [facility] Diagnosis Positional lightheadedness- Primary Dizziness and giddiness Near syncope Syncope and collapse Vertigo Dizziness and giddiness Coronary artery disease due to lipid rich plaque History of non-ST elevation myocardial infarction (NSTEMI) Old myocardial infarction Hypertension goal BP (blood pressure) < 140/90 Unspecified essential hypertension Subacute sinusitis, unspecified location [facility] in this [facility] Diagnosis Positional lightheadedness- Primary Dizziness and giddiness Hypertension goal BP (blood pressure) < 140/90 Unspecified essential hypertension RAUL (generalized anxiety disorder) Generalized anxiety disorder documented [facility] this [facility] Diagnosis 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, unspecified laterality, unspecified whether custodial insulin use (HCC) documented [facility] this [facility] Diagnosis Well adult exam- Primary Routine general medical examination at a health care facility Hypertension goal BP (blood pressure) < 140/90 Unspecified essential hypertension Mixed hyperlipidemia 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, unspecified laterality, unspecified whether custodial insulin use (HCC) Coronary artery disease due to lipid rich plaque History of non-ST elevation myocardial infarction (NSTEMI) Old myocardial infarction S/P coronary artery stent placement Postsurgical percutaneous transluminal coronary angioplasty status Subclavian artery stenosis, right (HCC) Atherosclerosis of other specified arteries GERD without esophagitis Esophageal reflux Acquired hypothyroidism Unspecified hypothyroidism RAUL (generalized anxiety disorder) Generalized anxiety disorder Diabetic eye exam (HCC) Type II or unspecified type diabetes mellitus without mention of complication, not stated as uncontrolled Gross hematuria Screening for colon cancer Special screening for malignant neoplasms, colon Medication management Encounter for long-term (current) use of other medications Epigastric pain Abdominal pain, epigastric documented in this encounter [facility]* Diagnosis Recurrent UTI (urinary tract infection)- Primary Urinary tract infection, site not specified documented in this encounter [facility] for referral (narrative)* Outpatient Procedure (Routine) - Authorized Specialty Diagnoses / Procedures Referred By Bridgette haines Referred To [facility] Diagnoses Bilateral carotid artery stenosis Procedures US CAROTID ARTERIES [facility] V[facility] LAB DUPLEX SCAN EXTRACRANIAL ART COMPL BI STUDY Aysha Simon MD [address] [place] [address] [facility] [address] [place] [address] Referral ID Status Reason Start Date Expiration Date Visits Requested Visits Authorized [id number] Authorized Auto-Generat ed Referral 09/05/2022 09/05/2023 1 1 [facility] Outpatient Procedure (Routine) - Authorized Specialty Diagnoses / Procedures Referred By Contac t Referred To Contact [facility] Diagnoses Positional lightheadedness Near syncope Coronary artery disease due to lipid rich plaque History of non-ST elevation myocardial infarction (NSTEMI) Hypertension goal BP (blood pressure) < 140/90 Procedures US CAROTID ARTERIES JUAN VAS LAB DUPLEX SCAN EXTRACRANIAL ART COMPL BI STUDY Jose Hatch PA-C [address] [place] [address] [facility] [id number] [place] [address] Referral ID Status Reason Start Date Expiration Date Visits Requested Visits Authorized [id number] Authorized Auto-Generat ed Referral 12/04/2022 12/04/2023 1 1 * Outpatient Procedure (Routine) - Closed Specialty Diagnoses / Procedures [facility]erred To Contact [facility] Diagnoses Positional lightheadedness Near syncope Coronary artery disease due to lipid rich plaque History of non-ST elevation myocardial infarction (NSTEMI) Hypertension goal BP (blood pressure) < 140/90 Procedures ECHO ECHO TTHRC R-T 2D W/WOM-MODE COMPL SPEC&COLR D Jose Hatch PA-C [address] [place] [address] [facility] [id number] [place] [address] Referral ID Status Reason Start Date Expiration Date V isits Requested Visits Authorized [id number] Closed Auto-Generate d Referral 12/04/2022 02/02/2023 1 1 [facility] Reason for Referral Specialty Diagnoses / Procedures Referred By Bridgette t Referred To Contact General Surgery Diagnoses Screening for colon cancer Epigastric pain Procedures CONSULT TO GENERAL SURGERY OFFICE/OUTPATIENT NEW HIGH MDM 60-74 MINUTES Jose Hatch PA-C [address] [place] [address] Referral ID Status Reason Start Date Expiration Date Visits Requested Visits Authorized [id number] Authorized PCP Requested Referral 06/11/2023 06/10/2024 1 1 Specialty Diagnoses / Procedures Referred By Bridgette haines Referred To Contact [facility] Diagnoses Gross hematuria Procedures US KIDNEY/BLADDER US RETROPERITONEAL REAL TIME W/IMAGE COMPLETE Jose Hatch PA-C [address] [place] [address] [facility] Referral ID Status Reason Start Date Expiration Date Visits Requested Visits Authorized [id number] Authorized Auto-Generat ed Referral 06/11/2023 07/10/2024 1 1 Summary Purpose Family History No Family History Records FoundNo Family History Records Found Advance Directives No Advanced Directives Records FoundNo Advanced Directives Records Found Additional Source Comments Source Comments (unrecognize d section and content) In the event this informatio n is protected by the Federal Confidentiality of Alcohol and Drug Abuse Patient Records regulations: The Federal rules restrict any use of the information to criminally investigate or prosecute any alcohol or drug abuse patient.[facility] the event this information is protected by the Federal Confidentiality of Alcohol and Drug Abuse Patient Records regulations: The Federal rules restrict any use of the information to criminally investigate or prosecute any alcohol or drug abuse patient.[facility] the event this information is protected by the Federal Confidentiality of Alcohol and Drug Abuse Patient Records regulations: The Federal rules restrict any use of the information to criminally investigate or prosecute any alcohol or drug abuse patient.[facility] the event this information is protected by the Federal Confidentiality of Alcohol and Drug Abuse Patient Records regulations: The Federal rules restrict any use of the information to criminally investigate or prosecute any alcohol or drug abuse patient.[facility] the event this information is protected by the Federal Confidentiality of Alcohol and Drug Abuse Patient Records regulations: The Federal rules restrict any use of the information to criminally investigate or prosecute any alcohol or drug abuse patient.[facility] Center[facility] the event this information is protected by the Federal Confidentiality of Alcohol and Drug Abuse Patient Records regulations: The Federal rules restrict any use of the information to criminally investigate or prosecute any alcohol or drug abuse patient.[facility] Center[facility] the event this information is protected by the Federal Confidentiality of Alcohol and Drug Abuse Patient Records regulations: The Federal rules restrict any use of the information to criminally investigate or prosecute any alcohol or drug abuse patient.[facility] Center[facility] the event this information is protected by the Federal Confidentiality of Alcohol and Drug Abuse Patient Records regulations: The Federal rules restrict any use of the information to criminally investigate or prosecute any alcohol or drug abuse patient.[facility] Center[facility] the event this information is protected by the Federal Confidentiality of Alcohol and Drug Abuse Patient Records regulations: The Federal rules restrict any use of the information to criminally investigate or prosecute any alcohol or drug abuse patient.[facility] Center[facility] the event this information is protected by the Federal Confidentiality of Alcohol and Drug Abuse Patient Records regulations: The Federal rules restrict any use of the information to criminally investigate or prosecute any alcohol or drug abuse patient.[facility] Center[facility] the event this information is protected by the Federal Confidentiality of Alcohol and Drug Abuse Patient Records regulations: The Federal rules restrict any use of the information to criminally investigate or prosecute any alcohol or drug abuse patient.[facility] Center[facility] the event this information is protected by the Federal Confidentiality of Alcohol and Drug Abuse Patient Records regulations: The Federal rules restrict any use of the information to criminally investigate or prosecute any alcohol or drug abuse patient.[facility] Center[facility] the event this information is protected by the Federal Confidentiality of Alcohol and Drug Abuse Patient Records regulations: The Federal rules restrict any use of the information to criminally investigate or prosecute any alcohol or drug abuse patient.[facility] CenterIn the event this information is protected by the Federal Confidentiality of Alcohol and Drug Abuse Patient Records regulations: The Federal rules restrict any use of the information to criminally investigate or prosecute any alcohol or drug abuse patient.[facility] CenterIn the event this information is protected by the Federal Confidentiality of Alcohol and Drug Abuse Patient Records regulations: The Federal rules restrict any use of the information to criminally investigate or prosecute any alcohol or drug abuse patient.[facility] CenterIn the event this information is protected by the Federal Confidentiality of Alcohol and Drug Abuse Patient Records regulations: The Federal rules restrict any use of the information to criminally investigate or prosecute any alcohol or drug abuse patient.[facility] CenterIn the event this information is protected by the Federal Confidentiality of Alcohol and Drug Abuse Patient Records regulations: The Federal rules restrict any use of the information to criminally investigate or prosecute any alcohol or drug abuse patient.[facility] CenterIn the event this information is protected by the Federal Confidentiality of Alcohol and Drug Abuse Patient Records regulations: The Federal rules restrict any use of the information to criminally investigate or prosecute any alcohol or drug abuse patient.[facility] CenterIn the event this information is protected by the Federal Confidentiality of Alcohol and Drug Abuse Patient Records regulations: The Federal rules restrict any use of the information to criminally investigate or prosecute any alcohol or drug abuse patient.[facility] CenterIn the event this information is protected by the Federal Confidentiality of Alcohol and Drug Abuse Patient Records regulations: The Federal rules restrict any use of the information to criminally investigate or prosecute any alcohol or drug abuse patient.[facility] CenterIn the event this information is protected by the Federal Confidentiality of Alcohol and Drug Abuse Patient Records regulations: The Federal rules restrict any use of the information to criminally investigate or prosecute any alcohol or drug abuse patient.[facility] CenterIn the event this information is protected by the Federal Confidentiality of Alcohol and Drug Abuse Patient Records regulations: The Federal rules restrict any use of the information to criminally investigate or prosecute any alcohol or drug abuse patient.[facility] CenterIn the event this information is protected by the Federal Confidentiality of Alcohol and Drug Abuse Patient Records regulations: The Federal rules restrict any use of the information to criminally investigate or prosecute any alcohol or drug abuse patient.[facility] CenterIn the event this information is protected by the Federal Confidentiality of Alcohol and Drug Abuse Patient Records regulations: The Federal rules restrict any use of the information to criminally investigate or prosecute any alcohol or drug abuse patient.[facility] Reason for Visit (unrecogniz ed section and content) Reason Onset Date Comments Refill Request 08/27/2022 Reason Onset Date Comments Transition Of Care 08/31/2022 [facility] 08/30/22 Reason Comments Hospital F/U Reason Comments Patient Update Reason Onset Date Comments Refill Request 11/27/2022 Reason Onset Date Comments Refill Request 12/03/2022 Reason Comments Dizziness Starts getting bad ~ 1pm, lasts until ~ 6pm. Feels pressure in head. Sx X 3.5 mths. Reason Comments Results Reason Comments Follow Up 3 wk FU dizziness Reason Comments ER F/U [facility] ER Reason Comments ER F/U [facility] Reason Comments Consult Cardiology Reason Comments Outside Endo Reason Onset Date Comments Refill Request 03/04/2023 Reason Onset Date Comments Refill Request 05/28/2023 Reason Comments Yearly Exam Reason Comments ext documentation Cardio OV note Reason Comments Medication Request Patient Question Reason Comments Outside Cardiology Care Teams (unrecognized sec tion and content) Parking Enforcement Specialist Relationship Specialty Start Date End Date Aysha Simon MD [address] [place] [address] PCP - General Family Medicine 11/04/19 Parking Enforcement Specialist Relationship Specialty Start Date End Date Aysha Simon MD [address] [place] [address] PCP - General Family Medicine 11/04/19 Parking Enforcement Specialist Relationship Specialty Start Date End Date Aysha Simon MD [address] [place] [address] PCP - General Family Medicine 11/04/19 Parking Enforcement Specialist Relationship Specialty Start Date End Date Aysha Simon MD [facility] [place] [address] PCP - General Family Medicine 11/04/19 Parking Enforcement Specialist Relationship Specialty Start Date End Date Aysha Simon MD [address] [place] [address] PCP - General Family Medicine 11/04/19 Parking Enforcement Specialist Relationship Specialty Start Date End Date Aysha Simon MD [address] [place] [address] PCP - General Family Medicine 11/04/19 Parking Enforcement Specialist Relationship Specialty Start Date End Date Aysha Simon MD [address] [place] [address] PCP - General Family Medicine 11/04/19 Parking Enforcement Specialist Relationship Specialty Start Date End Date Aysha Simon MD [address] [place] [address] PCP - General Family Medicine 11/04/19 Parking Enforcement Specialist Relationship Specialty Start Date End Date Aysha Simon MD [address] [place] [address] PCP - General Family Medicine 11/04/19 Parking Enforcement Specialist Relationship Specialty Start Date End Date Aysha Simon MD [address] [place] [address] PCP - General Family Medicine 11/04/19 Parking Enforcement Specialist Relationship Specialty Start Date End Date Aysha Simon MD [address] [place] [address] PCP - General Family Medicine 11/04/19 Parking Enforcement Specialist Relationship Specialty Start Date End Date Aysha Simon MD [address] [place] [address] PCP - General Family Medicine 11/04/19 Parking Enforcement Specialist Relationship Specialty Start Date End Date Aysha Simon MD [address] [place] [address] PCP - General Family Medicine 11/04/19 Parking Enforcement Specialist Relationship Specialty Start Date End Date Aysha Simon MD [address] [place] [address] PCP - General Family Medicine 11/04/19 Parking Enforcement Specialist Relationship Specialty Start Date End Date Aysha Simon MD [address] [place] [address] PCP - General Family Medicine 11/04/19 Parking Enforcement Specialist Relationship Specialty Start Date End Date Aysha Simon MD [address] [place] [address] PCP - General Family Medicine 11/04/19 Parking Enforcement Specialist Relationship Specialty Start Date End Date Aysha Simon MD [address] [place], [place] [address] PCP - General Family Medicine 11/04/19 Parking Enforcement Specialist Relationship Specialty Start Date End Date Aysha Simon MD [address] [place], [place] [address] PCP - General Family Medicine 11/04/19 Parking Enforcement Specialist Relationship Specialty Start Date End Date Aysha Simon MD [address] [place], [place] [id number] PCP - General Family Medicine 11/04/19 Parking Enforcement Specialist Relationship Specialty Start Date End Date Aysha Simon MD [address] [place], [place] [id number] PCP - General Family Medicine 11/04/19 (unrecognized sect ion and content) No Status Records FoundNo Status Records Found INFORMATION SOURCE (unrecogn ized section and content) DATE CREATED AUTHOR AUTHOR'S ORGANIZ ATION 10/26/2023 [facility] FOR RECORDS PERTAINING TO PATIENTS WHO ARE OR HAVE BEEN ENROLLED IN A CHEMICAL DEPENDENCY/SUBSTANCEABUSE PROGRAM, SOME INFORMATION MAY BE OMITTED. This clinical summary was aggregated from multiple sources. Caution should be exercised in using it in the provision of clinical care. This summary normalizes information from multiple sources, and as a consequence, information in this document may materially change the coding, format and clinical context of patient data. In addition, data may be omitted in some cases. CLINICAL DECISIONS SHOULD BE BASED ON THE PRIMARY CLINICAL RECORDS. [employer] provides no warranty or guarantee of the accuracy or completeness of information in this document.
[2023-12-08 13:25] LABS: Anion Gap 5 (5-15); BUN 12 mg/dL (7-18); BUN/Creat Ratio 12.6 RATIO (10-20); Calcium,Total 9.5 mg/dL (8.5-10.1); Chloride 107 mmol/L (98-107); Creatinine, Serum 0.95 mg/dL (0.70-1.30); EST Glomerular Filtration Rate 90 mL/min (>60); Est Glom Filt Rate - Afr Amer 108 mL/min (>60); Estimated Creatinine Clearance 128.61 ml/min; Glucose 176 mg/dL (74-106); Potassium 4.3 mmol/L (3.5-5.1); Sodium Level 140 mmol/L (136-145); Troponin-I HS (w/2H Reflex) 6 pg/mL (3.0-78.0)
[2023-12-08 14:00] VITALS: BP 160/84; PULSE 57; RESP 15; O2SAT 97
[2023-12-08 15:00] VITALS: BP 157/81; PULSE 58; RESP 16; O2SAT 98
[2023-12-08 15:05] LABS: Reflex Troponin-HS? (from REC) Y
[2023-12-08 15:30] LABS: Troponin-I HS 6 pg/mL (3.0-78.0)
== END 2023-12-08 15:52 | disposition home or self-care (01) ==
PROVIDERS: Emergency Provider Emergency Medicine; PCP Family Medicine; Visit Provider Emergency Medicine
DX: R07.9 Chest pain, unspecified (principal); E11.9 Type 2 diabetes mellitus without complications; I25.10 Atherosclerotic heart disease of native coronary artery without angina pectoris; Z95.5 Presence of coronary angioplasty implant and graft; I10 Essential (primary) hypertension; Z79.82 Long term (current) use of aspirin; Z79.02 Long term (current) use of antithrombotics/antiplatelets; I25.2 Old myocardial infarction; K21.9 Gastro-esophageal reflux disease without esophagitis; E78.5 Hyperlipidemia, unspecified
CPT/HCPCS: 71045; 80048; 84484; 85025; 93005; 99285; A4216

== ENCOUNTER → 2024-01-02 | Outpatient (CLI) | payer MEDICAID, SELFPAY ==
[2023-01-26 01:17] VITALS: BMI 38.2
== END | disposition home or self-care (01) ==
PROVIDERS: PCP Family Medicine; Visit Provider Podiatrist
DX: L02.612 Cutaneous abscess of left foot (principal)
CPT/HCPCS: 87070; 87075; 87077; 87101; 87186; 87205

== ENCOUNTER → 2024-03-17 | Outpatient (CLI) | payer MEDICAID, SELFPAY ==
[2023-01-26 01:17] VITALS: BMI 38.2
== END | disposition home or self-care (01) ==
PROVIDERS: PCP Family Medicine; Visit Provider Podiatrist Foot & Ankle Surgery
DX: L97.529 Non-pressure chronic ulcer of other part of left foot with unspecified severity (principal)
CPT/HCPCS: 87070; 87075; 87077; 87101; 87186; 87205

== ENCOUNTER 2024-03-30 10:41 | Outpatient (RCR) | payer MEDICAID, SELFPAY ==
[2023-01-26 01:17] VITALS: BMI 38.2
--- NOTE | 2024-03-30 11:55 | HP.PTEVAL_ITS ---
Patient's Visit Information Visit Information Visit Information: MICHAEL NAVA is a 48 year old M referred to Physical Therapy by BECKY COLLADO with a diagnosis of Bilateral Shoulder Pains. Date of Evaluation: 03/30/24 Physical Therapist: Martha Larson DPT Visit Plan Frequency: 2x /Week Duration: 4 Weeks Plan: Focus on church of ROM and scapular strength/stabilization- PROM/AAROM/AROM then isometrics- and scapular strength/stabilization HEP given IE: postural correction, scapular retractions, wall wash flexion, table walk away Subjective Subjective: Patient reports that he has had bilateral shoulder pain for years- right is worse than left. 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 He reports that the pain is hard to describe and its inside the joint. The pain does not radiate- he does have some numbness in his fingers at night but it goes away- it goes away when he wakes up and moves around. He is right hand dominate. Worst: 20/10 Agg: fast motions- no way he could throw a ball overhand. Eases: nothing Best: 2/10 Describes- if he moves fast its stabbing deep but now sitting its an ache. He has had both x-rays and MRI's which have been clear- the last ones were about 4 years ago. He just had injections last week and they helped a little bit with everyday stuff. They helped 30% but not with the sharp pains. He does have neck pain and headaches. Feels this is worse when his shoulders are worse. Sleep: disturbed- hard to get comfortable and will wake him up- side and back sleeper. Work: his shoulders have stopped him from working- about 10 years ago he stopped working. He has be en a diabetic for about 15 years. He has tried therapy before and feels it makes it worse. PMHx: HTN, DM, high cholesterol- 4 stents in his year- placed 1.5 years ago. Meds: atorvastatin, lisinopril, levothyroxine, omeprazole, isosormonoer, clopidogrel, duloxetine, asprin, novolog, lantatus, trulicity. Objective Objective: Posture: forward head, rounded shoulders, can correct but does not maintain Gait: no deviation noted- good arm swing and trunk rotation- no guarding Palpation: tender along medial border of the scapula, upper traps bilateral and bicipital groove ROM: Cervical: WFL with pain SB to the right AROM: Shoulder: Left: flexion: 120 abd: 80 IR: belt line ER: 30 degrees Right: flexion: 115 abd: 70 IR: greater troch ER: 5 degrees Elbow/Wrist/Hand: WFL AAROM on wall: Left: 160 degrees Right: 120 degrees- unable to perform PROM due to guarding Strength: Surveillance Sensor Operator: Left 100 Right: 120 Elbow: Right: Flexion: 32 Extn: 18 (4/10) Left: Flexion: 42 Extn: 23 Shoulder: Left: at neutral- Flexion: 22 Extn: 25 Abd:26 (4/10) Add:34 (4/10) IR: 32 (5/10) ER: 12.7 (4/10) Right: at neutral- Flexion: 24 (3/10) Extn: 20 (5/10) Abd:9.6 (6/10) Add:19 (/10) IR: 16 (/10) ER: 4.2 (5/10)- Pain level in () Special Tests R Shoulder Drop Sign - IS Test: Positive R Shoulder Empty Can - SS: Positive R Shoulder Belly Press - SupScap: Positive R Shoulder Neer - Impingement: Positive R Shoulder [place] - Impingement: Positive L Shoulder Drop Sign - IS Test: Positive L Shoulder Empty Can - SS: Positive L Shoulder Belly Press - SupScap: Positive L Shoulder Neer - Impingement: Positive L Shoulder [place] - Impingement: Positive Balance/Special Test Scores Quick DASH Score: 61.3625 Goals Goal 1:: Patient will be I with HEP and progression Goal Time Frame: 4-6 Weeks Goal 2:: Patient will demo full AROM of bilateral shoulders. Goal Time Frame: 4-6 Weeks Goal 3:: Patient will improve strength by 5 lbs of force in each direction Goal Time Frame: 4-6 Weeks Goal 4:: Patient will maintain proper posture to demo increased scap s/s Goal Time Frame: 4-6 Weeks Goal 5:: Patient will report sleeping through the night without pain for 1 night Goal Time Frame: 4-6 Weeks Goal 6:: Patient will report 80% improvement Rehabilitation Potential Physical Therapy Diagnosis: Patient presents with hypomobility- he has decreased ROM, UE and scap s/s and muscular endurance leading to poor posture and increased pain with ADL's. Rehabilitation Potential: Fair Anticipated Interventions Patient/Client Instruction: Educate patient on: Benefits of Fitness Program Therapeutic Exercise to Include: Strength training, Endurance training, Agility training, Body mechanics, Postural training, Flexibilty training, Neuromotor development, Passive ROM, Active ROM, Dynamic Lumbar Stabilization and Scapular Strength/Stabilization For the Purpose of:: To improve muscle performance and motor function Manual Therapy Techniques to Include: Manipulation and Soft tissue mobilization For the Purpose of:: To increase ROM TENS: Yes Cryotherapy (ice pack, ice massage): Yes Thermo therapy (hot pack): Yes Ultrasound (thermal/non thermal): Yes For the Purpose of:: To decrease pain Text: Thank you for the opportunity to evaluate your patient. For Medicare and Medicare HMO plans, please review the plan of care and approve it. It will need to be FAXED BACK to us at [phone] for Medicare purposes. For Medicare only, by signing this I certify the plan of care. Please let me know if there are questions or concerns regarding this plan of care. Physician Signature: Date:
--- NOTE | 2024-04-22 08:23 | HP.PT.NRP ---
Patient Information Patient Information: MICHAEL NAVA was seen in my office for initial evaluation on 03/30/24. The following Plan of Care was established for this patient: POC Established Initial Frequency: 2x /Week Initial Duration: 4 Weeks Anticipated Interventions Patient/Client Instruction: Educate patient on: Benefits of Fitness Program Therapeutic Exercise to Include: Strength training, Endurance training, Agility training, Body mechanics, Postural training, Flexibilty training, Neuromotor development, Passive ROM, Active ROM, Dynamic Lumbar Stabilization and Scapular Strength/Stabilization For the Purpose of:: To improve muscle performance and motor function Manual Therapy Techniques to Include: Manipulation and Soft tissue mobilization For the Purpose of:: To increase ROM TENS: Yes Cryotherapy (ice pack, ice massage): Yes Thermo therapy (hot pack): Yes Ultrasound (thermal/non thermal): Yes For the Purpose of:: To decrease pain Last Seen Last Seen: This patient was last seen in our office . Pertinent comments regarding their Physical therapy will appear below: Patient has not attended PT since initial evaluation and has not shown to multiple scheduled appts- he is appropriate to be discharged and return when able. At this point I will be discontinuing this patient from physical therapy. I would be happy to see this patient again in the future if found appropriate by the physician. Thank you! Martha Larson, LANNY[facility] Balance/Gait/Functional tests Balance/Special Test Scores Quick DASH Score: [phone]
== END 2024-03-30 19:00 | disposition home or self-care (01) ==
LOC: PT 10:41
PROVIDERS: PCP Family Medicine
DX: M77.9 Enthesopathy, unspecified (principal)
CPT/HCPCS: 97162

== ENCOUNTER 2024-04-01 14:10 | Observation (INO) | payer MEDICAID, SELFPAY ==
[2023-01-26 01:17] VITALS: BMI 38.2
[2024-04-01] VITALS (7 sets, daily range): BP systolic 130–196; BP diastolic 86–172; PULSE 67–83; RESP 16–20; TEMP 36.3–37; O2SAT 95–99; BMI 35.5
[2024-04-01] MEDS: Ondansetron 4 MG/2 ML Vial IV (14:21)
[2024-04-01] MEDS: Aspirin 81 MG TAB.CHEW 324 MG PO (14:23)
--- NOTE | 2024-04-01 14:25 | RAD_ITS ---
STUDY: X-RAY CHEST REASON FOR EXAM: Male, 48 years old. Chest pain TECHNIQUE: Single AP portable view of the chest. COMPARISON: Comparison is made with prior study dated December 08, 2023. FINDINGS: EKG electrodes are seen. The lungs are clear and expanded. There is no demonstrated pleural abnormality. Normal size heart. Normal mediastinum and leland. Normal visualized pulmonary arteries. Normal visualized aortic arch and descending thoracic aorta. Normal visualized thoracic spine. Normal visualized ribs, clavicles, and shoulders. There is no demonstrated abnormality of the visualized soft tissue structures of the upper abdomen. RAD/Chest 1 View (Portable) IMPRESSION: Normal x-ray examination of the chest. Electronically Signed: Steve Jung MD at 14:38 EDT ,
[2024-04-01] MEDS: Nitroglycerin SL (ED/IMG/CATH) 0.4 MG TABLET SL (14:33)
[2024-04-01 14:40] LABS: Absolute Lymphocyte Count 2.99 X10^3/uL (0.83-4.51); Basophil# 0.07 X10^3/uL; Basophil% 0.4 % (0-1); Eosinophil# 0.05 X10^3/uL; Eosinophils% 0.3 % (0-5); Hematocrit 49.8 % (40-54); Hemoglobin 16.4 g/dL (13.0-16.5); Lymphocyte # 2.99 X10^3/ul (0.83-4.51); Mean Corp Hgb Conc 32.9 g/dL (32-36); Mean Platelet Vol. 10.6 fl (6.2-12.0); Monocyte% 7.5 % (0-10); NRBC Flagged by Analyzer 0 % (0-5); Neutrophil # 14.03 X10^3/uL (2.7-7.7); Neutrophil % 75.3 % (47-70); Platelet Count 324 K/mm3 (150-450); Red Blood Count 5.47 M/mm3 (4.6-6.2); White Blood Count 18.6 K/mm3 (4.4-11.0)
[2024-04-01 14:40] LABS: BNP,B-Type NATRIURETIC PEPTIDE 9.8 pg/mL (0-100)
[2024-04-01 14:43] LABS: Anion Gap 6 (5-15); BUN 18 mg/dL (7-18); BUN/Creat Ratio 15.9 RATIO (10-20); Calcium,Total 10.2 mg/dL (8.5-10.1); Chloride 103 mmol/L (98-107); Creatinine, Serum 1.13 mg/dL (0.70-1.30); EST Glomerular Filtration Rate 73 mL/min (>60); Est Glom Filt Rate - Afr Amer 89 mL/min (>60); Estimated Creatinine Clearance 103.34 ml/min; Glucose 150 mg/dL (74-106); Potassium 4.6 mmol/L (3.5-5.1); Sodium Level 136 mmol/L (136-145); Troponin-I HS (w/2H Reflex) 7 pg/mL (3.0-78.0)
--- NOTE | 2024-04-01 14:52 | ED.RN ---
Patient 2/10 pain, does not want additional Nitro dose.
--- NOTE | 2024-04-01 15:32 | ED.RN ---
PT STATES HE THINKS HIS BLOOD SUGAR IS LOW. GLUCOSE TEST AT BEDSIDE WITH THIS RN 140. PT REPORTS SHAKING. PT GIVEN WARM BLANKET
[2024-04-01 15:41] LABS: Bedside Glucose 140 mg/dL (74-106)
[2024-04-01 16:22] LABS: Reflex Troponin-HS? (from REC) Y
--- NOTE | 2024-04-01 16:39 | EDS_ITS ---
HPI History of Present Illness Chief Complaint: Chest Pain [facility] Medical History Anxiety Atherosclerosis of coronary artery without angina pectoris Bradycardia Cataract Depression Diabetes Diabetes mellitus type II, uncontrolled Essential hypertension Gastroesophageal reflux History of anxiety History of non-ST elevation myocardial infarction (NSTEMI) (08/28/22) Hyperlipidemia Hypothyroidism Kidney stones Obesity Obesity Substance abuse Home Medications ?Medication ?Instructions ?Recorded ?Last Taken ?Type levothyroxine 25 mcg tablet 25 tablet PO DAILY THYROID 07/20/21 04/01/24 History OneTouch Verio Flex meter #1 ea 09/04/21 Unknown Rx (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 meter) OneTouch Verio test strips (blood #450 ea 09/04/21 Unknown Rx sugar diagnostic) FreeStyle Lite Strips (blood sugar #100 ea 09/06/21 Unknown Rx diagnostic) aspirin 81 mg chewable tablet 81 mg PO BREAKFAST HEART HEALTH 08/28/22 04/01/24 History atorvastatin 40 mg tablet 40 mg PO DAILY CHOLESTEROL 08/28/22 04/01/24 History omeprazole 20 mg capsule,delayed 20 mg PO DAILY GERD 08/28/22 04/01/24 History release nitroglycerin 0.4 mg sublingual 0.4 mg sublingual Q5M PRN CHEST 01/01/23 Unknown History tablet PAIN flash glucose scanning reader #1 ea 05/08/23 Unknown Rx (FreeStyle Ximena 2 [place]) duloxetine 30 mg capsule,delayed 30 mg PO DAILY 07/05/23 04/01/24 History release pen needle, diabetic 31 gauge x #120 ea 07/09/23 Unknown Rx 1/4 lisinopril 5 mg tablet 5 mg PO DAILY BLOOD PRESSURE 10/04/23 04/01/24 History isosorbide mononitrate 60 mg 60 mg PO DAILY #90 tabs 11/01/23 04/01/24 Rx tablet,extended release 24 hr flash glucose sensor (FreeStyle #6 ea 11/21/23 Unknown Rx Ximena 2 Sensor kit) clopidogrel 75 mg tablet (Plavix) 75 mg PO DAILY BLOOD THINNER #90 12/23/23 04/01/24 Rx tabs dulaglutide 1.5 mg/0.5 mL 1.5 mg subcut MO 04/01/24 03/30/24 History subcutaneous pen injector (Trulicity) insulin aspart U-100 100 unit/mL 12 unit subcut TIDCM DIABETES 04/01/24 04/01/24 History (3 mL) subcutaneous pen (Novolog FlexPen U-100 Insulin aspart) insulin glargine 100 unit/mL (3 26 unit subcut QAM 04/01/24 04/01/24 History mL) subcutaneous pen (Lantus Solostar U-100 Insulin) Allergy/AdvReac Type Severity Reaction Status Date / Time No Known Allergies Allergy Verified 04/01/24 14:13 Family History Father Myocardial infarction Surgical History History of coronary artery stent placement (08/28/22) History of coronary artery stent placement (~08/29/22) History of right coronary artery stent placement (08/28/22) Social History household members: family housing: house Smoking Status: Never smoker alcohol intake: never substance use type: marijuana caffeine: Yes Type: carbonated beverages Number of servings: 8 and coffee Number of servings: 1 what type of physical activity do you participate in: none EXAM Physical Exam Const Vital Signs: 04/01/24 14:11 04/01/24 14:24 04/01/24 14:33 Temperature 97.3 F L Temperature Source Temporal Pulse Rate 83 72 Respiratory Rate 20 H Blood Pressure 196/172 H 152/97 H Blood Pressure Mean 180 Pulse Ox 99 Oxygen Delivery Method Room Air Room Air 04/01/24 15:10 04/01/24 16:00 Temperature Temperature Source Pulse Rate 78 79 Respiratory Rate 18 16 Blood Pressure 147/87 H 138/90 H Blood Pressure Mean 107 106 Pulse Ox 98 95 Oxygen Delivery Method Room Air MDM MDM MDM Narrative Medical decision making narrative: HISTORY OF PRESENT ILLNESS: 40-year-old male presents with chest pain. Notes chest pain for last week is worse with exertion described as pressure. Is nonradiating. He notes associated nausea, diaphoresis. The patient denies recent surgery in the last 4 weeks or immobilization in the last 3 days, denies previous diagnosis of DVT or PE, hemoptysis, unilateral leg swelling or malignancy with treatment the last 6 months or palliative. No estrogen use noted. Patient denies sudden onset of pain, no tearing sensation, no migratory symptoms, no new numbness, weakness or loss of sensation. Patient denies family history or personal history of Connective tissue disorders (Marfan's Syndrome, Kenton Danlos etc). he denies any bleeding diathesis. He denies any vomiting or diarrhea. Denies any lower extremity edema. Notes history of CAD, diabetes and hypertension. He does not smoke or do any drugs. Notes positive family history of CAD in his father. REVIEW OF SYSTEMS: Pertinent positives: Chest pain Pertinent negatives: Shortness of breath, leg swelling PHYSICAL EXAM: Nursing triage notes reviewed, Vital signs reviewed Constitutional: please see mdm HENT: MMM Eyes: Pupils equal round and reactive to light, Extraocular muscles intact Neck: No stridor, no JVD, full neck ROM Lungs: Clear to auscultation, No wheezing or rales. No increased work of breathing, no conversational dyspnea, no accessory muscle use, no nasal flaring. No respiratory distress noted Heart: Regular rate and rhythm, No murmurs, No rubs and No gallops, 2+ distal pulses (radial, femoral, posterior tibial) in all extremities Abdomen: Soft, there is no tenderness, rigidity, rebound or guarding, no obvious peritoneal signs, no palpable pulsatile abdominal masses, no auscultated abdominal bruit : No CVAT Extremities: No edema Neuro: No focal neurological deficits, cranial nerves II through XII intact, 5/5 strength in all extremities. Intact sensation to light touch in all extremities, 2+ reflexes bilateral patella tendons. Normal gait. No ataxia. Skin: No rash or lesions noted MEDICAL DECISION MAKING: Chief Complaint: Chest pain External records reviewed: Last cardiac catheterization 2022 shows [place] multivessel CAD recommendations risk factor modification at that time Factors affecting care: CAD, hypertension, hyperlipidemia status post stent Social determinants of health: Denies drug use History obtained from others: none Consults: Cardiology (Dr. Harrison), Internal Medicine (Dr. Rodriguez) [facility] Narrative: The patient was initially hypertensive otherwise hemodynamically stable afebrile nontoxic-appearing. No focal cardiopulmonary normalities noted on exam I considered the following differential diagnosis: ACS, arrhythmia, anemia, electro disturbance, pneumothorax, pneumonia I obtained a broad lab and imaging workup to further elucidate the etiology of the patient's complaints. I treat the patient with aspirin, as needed nitroglycerin and Zofran for symp tomatic relief. ALL IMAGES (IF OBTAINED) HAVE BEEN PERSONALLY REVIEWED AND INTERPRETED BY MYSELF. EKG with normal sinus rhythm, normal axis, normal intervals, no STEMI High-sensitivity troponin is negative, no evidence of myocardial ischemia CBC with leukocytosis suggestive of systemic inflammation, no anemia or thrombocytopenia noted BMP without evidence of significant electrolyte abnormalities, no anion gap, no acute kidney injury. BNP within normal limits suggestive of no increased ventricular stretch or volume overload I have personally reviewed the patient's chest x-ray. Chest x-ray is unremarkable for pulmonary edema, pneumothorax, pneumonia or focal cardiopulmonary abnormality. The synthesis of the patient's history, physical exam, labs images suggest chest pain of unknown origin. The patient does have an elevated heart score and had a very concerning story including exertional chest pain, chest pressure, diaphoresis and nausea. Discussed with the senior water resources engineer on-call Dr. Harrison who recommended admission. Dr. Harrison further recommended the patient did not need a cardiology consult but wanted him to undergo a stress test first before consulting cardiology. Recommended consult to cardiology if the stress test was abnormal. Discussed with hospitalist accepted the patient's case. The patient and/or family, caregivers express understanding. The patient and/or family, caregivers agrees with the plan. Shared decision making: I will have a discussion with the patient and or visitors regarding risk/benefits of further testing or admission. They will be made aware of of the risk/benefits inherent in this decision they will be given the opportunity to voice understanding. Total critical care time today provided was at least 0 minutes. This excludes separately billable procedures. Critical care time (if documented) is secondary to the patient having high probability of clinically significant/life threatening deterioration in the patient's condition which required my urgent intervention. Impression: 1. Chest pain 2. History of CAD 3 history of hyperlipidemia Dispo: Admit to floor This note was generated with [employer] dictation software. It may contain incorrect words, spelling, and punctuation that were not noted in review of the chart prior to signing. Lab Data Labs: Laboratory Results - last 24 hr 04/01/24 04/01/24 04/01/24 14:15 14:35 15:23 WBC 18.6 H RBC 5.47 Hgb 16.4 Hct 49.8 MCV 91.0 MCH 30.0 MCHC 32.9 RDW Std Deviation 43.0 RDW Coeff of Elias 13.0 Plt Count 324 MPV 10.6 Immature Gran % (Auto) 0.500 Neut % (Auto) 75.3 H Lymph % (Auto) 16.0 L Day % (Auto) 7.5 Eos % (Auto) 0.3 Baso % (Auto) 0.4 Absolute Neuts (auto) 14.0 H Absolute Lymphs (auto) 2.99 Nucleated RBC % 0 Sodium 136 Potassium 4.6 Chloride 103 Carbon Dioxide 27.0 Anion Gap 6 BUN 18 Creatinine 1.13 Estim Creat Clear Calc 103.34 Est GFR (MDRD) Af Amer 89 Est GFR (MDRD) Non-Af 73 BUN/Creatinine Ratio 15.9 Glucose 150 H Calcium 10.2 H Troponin I High Sens 7 B-Natriuretic Peptide 9.8 POC Glucose 140 H Radiography Diagnostic Testing: Clinical Impression(s) from Imaging Studies Chest X-Ray 04/01/24 14:25 IMPRESSION: Normal x-ray examination of the chest. Electronically Signed: Steve Jung MD at 14:38 EDT , Discharge Plan Triage Chief Complaint: Chest Pain ED Provider: Ortega Barry Dx/Rx/DC Orders Prescriptions: No Action levothyroxine 25 mcg tablet 25 tablet PO DAILY (DME) 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 meter [OneTouch Verio Flex meter] Misc See Rx Instructions .ROUTE .MEDSUPPLY Qty: 1 0RF Rx Instructions: As directed (DME) OneTouch Verio test strips Strip See Rx Instructions .ROUTE .MEDSUPPLY Qty: 450 3RF Rx Instructions: 5x/day (DME) FreeStyle Lite Strips Strip See Rx Instructions .ROUTE .MEDSUPPLY Qty: 100 6RF Rx Instructions: 4x/day (DME) FreeStyle Ximena 2 [place] Misc See Rx Instructions .Route Qty: 1 0RF Rx Instructions: As directed duloxetine 30 mg capsule,delayed release(DR/EC) 30 mg PO DAILY lisinopril 5 mg tablet 5 mg PO DAILY atorvastatin 40 mg tablet 40 mg PO DAILY omeprazole 20 mg capsule,delayed release(DR/EC) 20 mg PO DAILY aspirin 81 mg tablet,chewable 81 mg PO BREAKFAST nitroglycerin 0.4 mg tablet, sublingual 0.4 mg sublingual Q5M PRN (Reason: CHEST PAIN ) insulin aspart U-100 [Novolog FlexPen U-100 Insulin] 100 unit/mL (3 mL) insulin pen 12 unit SUBCUT TIDCM insulin glargine [Lantus Solostar U-100 Insulin] 100 unit/mL (3 mL) insulin pen 26 unit subcut QAM Trulicity 1.5 mg/0.5 mL pen injector 1.5 mg subcut MO (DME) pen needle, diabetic 31 gauge x 1/4 needle See Rx Instructions .ROUTE .MEDSUPPLY Qty: 120 6RF Rx Instructions: 4x/day isosorbide mononitrate 60 mg tablet extended release 24 hr 60 mg PO DAILY Qty: 90 3RF (DME) FreeStyle Ximena 2 Sensor Kit See Rx Instructions .Route Qty: 6 1RF Rx Instructions: 1 sensor q 14 days clopidogrel [Plavix] 75 mg tablet 75 mg PO DAILY Qty: 90 3RF Primary Care Provider: Darinel Armstrong Referrals: Darinel Armstrong MD [Primary Care Provider] - Print Language: Bulgarian
[2024-04-01 16:58] LABS: Troponin-I HS 6 pg/mL (3.0-78.0)
--- NOTE | 2024-04-01 17:08 | PCM.HP.STD ---
HPI - General General Date of Admission: 04/01/24 Date of Service: 04/01/24 Chief Complaint: chest pain HPI Narrative MICHAEL NAVA, is a 48 M with a PMH as outlined who presents via the ED with a complaint of chest pain which has been going on for about a week. Chest pain is worsened by exertion and pressure like. He had associated nausea and vomiting. He denied any lightheadedness or dizziness or any other symptoms. He has a history of CAD s/p 4 stents, the last of which was in August 2022. Chemistry showed BP o 138/90, MD of 79, RR of 16 and oxygen sats of 95% on room air. CBC showed hb of 16.4, wbc of 18.6 and platelets of 324. Chemistry was otherwise unremarkable apart from Calcium of 10.2. EKG showed no acute ST changes. He is being admitted to be managed for chest pain to rule out ACS. FOR[facility] Medical History Anxiety Atherosclerosis of coronary artery without angina pectoris Bradycardia Cataract Depression Diabetes Diabetes mellitus type II, uncontrolled Essential hypertension Gastroesophageal reflux History of anxiety History of non-ST elevation myocardial infarction (NSTEMI) (08/28/22) Hyperlipidemia Hypothyroidism Kidney stones Obesity Obesity Substance abuse Home Medications ?Medication ?Instructions ?Recorded ?Last Taken ?Type levothyroxine 25 mcg tablet 25 tablet PO DAILY THYROID 07/20/21 04/01/24 History OneTouch Verio Flex meter #1 ea 09/04/21 Unknown Rx (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 meter) OneTouch Verio test strips (blood #450 ea 09/04/21 Unknown Rx sugar diagnostic) FreeStyle Lite Strips (blood sugar #100 ea 09/06/21 Unknown Rx diagnostic) aspirin 81 mg chewable tablet 81 mg PO BREAKFAST HEART HEALTH 08/28/22 04/01/24 History atorvastatin 40 mg tablet 40 mg PO DAILY CHOLESTEROL 08/28/22 04/01/24 History omeprazole 20 mg capsule,delayed 20 mg PO DAILY GERD 08/28/22 04/01/24 History release nitroglycerin 0.4 mg sublingual 0.4 mg sublingual Q5M PRN CHEST 01/01/23 Unknown History tablet PAIN flash glucose scanning reader #1 ea 05/08/23 Unknown Rx (FreeStyle Ximena 2 [place]) duloxetine 30 mg capsule,delayed 30 mg PO DAILY 07/05/23 04/01/24 History release pen needle, diabetic 31 gauge x #120 ea 07/09/23 Unknown Rx / lisinopril 5 mg tablet 5 mg PO DAILY BLOOD PRESSURE 10/04/23 04/01/24 History isosorbide mononitrate 60 mg 60 mg PO DAILY #90 tabs 11/01/23 04/01/24 Rx tablet,extended release 24 hr flash glucose sensor (FreeStyle #6 ea 11/21/23 Unknown Rx Ximena 2 Sensor kit) clopidogrel 75 mg tablet (Plavix) 75 mg PO DAILY BLOOD THINNER #90 12/23/23 04/01/24 Rx tabs dulaglutide 1.5 mg/0.5 mL 1.5 mg subcut MO 04/01/24 03/30/24 History subcutaneous pen injector (Trulicity) insulin aspart U-100 100 unit/mL 12 unit subcut TIDCM DIABETES 04/01/24 04/01/24 History (3 mL) subcutaneous pen (Novolog FlexPen U-100 Insulin aspart) insulin glargine 100 unit/mL (3 26 unit subcut QAM 04/01/24 04/01/24 History mL) subcutaneous pen (Lantus Solostar U-100 Insulin) Allergy/AdvReac Type Severity Reaction Status Date / Time No Known Allergies Allergy Verified 04/01/24 14:13 Family History Father Myocardial infarction Surgical History History of coronary artery stent placement (08/28/22) History of coronary artery stent placement (~08/29/22) History of right coronary artery stent placement (08/28/22) Social History household members: family housing: house Smoking Status: Never smoker alcohol intake: never substance use type: marijuana caffeine: Yes Type: carbonated beverages Number of servings: 8 and coffee Number of servings: 1 what type of physical activity do you participate in: none ROS Review of Systems ROS Unobtainable: Denies due to encephalopathy Constitutional Constitutional: Denies anorexia, chills, fatigue, fever(s) or malaise Eyes Eyes: Denies change in vision ENT HEENT: Denies dysphagia or headache(s) Cardiovascular Cardiovascular: Reports chest pain; Denies dyspnea on exertion, edema, lightheadedness, orthopnea or palpitations Respiratory/Chest Respiratory/Chest: Denies cough, dyspnea, shortness of breath at rest or shortness of breath with exertion Gastrointestinal Gastrointestinal: Denies abdominal pain, constipation, diarrhea, nausea or vomiting Genitourinary Genitourinary: Denies burning urination, dysuria or hematuria Musculoskeletal Musculoskeletal: Denies joint pain Neurologic Neurologic: Denies confusion, dizziness, focal weakness or headache(s) Psychiatric Psychiatric: Denies anxiety or depression Vital Signs Vital Signs Vital Signs: 04/01/24 14:11 04/01/24 14:24 04/01/24 14:33 Temperature 97.3 F L Temperature Source Temporal Pulse Rate 83 72 Respiratory Rate 20 H Blood Pressure 196/172 H 152/97 H Blood Pressure Mean 180 Pulse Ox 99 Oxygen Delivery Method Room Air Room Air 04/01/24 15:10 04/01/24 16:00 Temperature Temperature Source Pulse Rate 78 79 Respiratory Rate 18 16 Blood Pressure 147/87 H 138/90 H Blood Pressure Mean 107 106 Pulse Ox 98 95 Oxygen Delivery Method Room Air Weight Weight: 254 lb 11.2 oz Body Mass Index (BMI) 35.5 Physical Exam Const alert, oriented x3 and no apparent distress Constitutional Narrative: obese General Appearance: cooperative HEENT normocephalic, head/scalp atraumatic, hearing grossly normal bilaterally, moist oral mucous membranes and oropharynx normal Eyes PERRL and EOMs intact bilaterally Neck no lymphadenopathy and supple Resp normal respiratory effort, no retractions, no use of accessory muscles and clear to auscultation bilaterally Cardio regular rate, regular rhythm, S1 normal heart sound and S2 normal heart sound GI normal to inspection, nondistended, normoactive bowel sounds, soft to palpation and non-tender Extremity normal to inspection, full ROM and no clubbing, cyanosis or edema Neuro oriented x3 and CN's II-XII intact bilaterally Sensorium / Orientation: awake Motor Exam: strength 5/5 throughout Psych affect normal Results Lab / Micro Data 04/01/24 14:35 04/01/24 14:15 Labs: Laboratory Results - last 24 hr 04/01/24 14:15: Sodium 136, Potassium 4.6, Chloride 103, Carbon Dioxide 27.0, Anion Gap 6, BUN 18, Creatinine 1.13, Estim Creat Clear Calc 103.34, Est GFR (MDRD) Af Amer 89, Est GFR (MDRD) Non-Af 73, BUN/Creatinine Ratio 15.9, Glucose 150 H, Calcium 10.2 H, Troponin I High Sens 7, B-Natriuretic Peptide 9.8 04/01/24 14:35: WBC 18.6 H, RBC 5.47, Hgb 16.4, Hct 49.8, MCV 91.0, MCH 30.0, MCHC 32.9, RDW Std Deviation 43.0, RDW Coeff of Elias 13.0, Plt Count 324, MPV 10.6, Immature Gran % (Auto) 0.500, Neut % (Auto) 75.3 H, Lymph % (Auto) 16.0 L, [place] % (Auto) 7.5, Eos % (Auto) 0.3, Baso % (Auto) 0.4, Absolute Neuts (auto) 14.0 H, Absolute Lymphs (auto) 2.99, Nucleated RBC % 0 04/01/24 15:23: POC Glucose 140 H 04/01/24 16:33: Troponin I High Sens 6 Imaging Radiology Impression Chest X-Ray 04/01/24 14:25 IMPRESSION: Normal x-ray examination of the chest. Electronically Signed: Steve Jung MD at 14:38 EDT Reading Location ID and State: [address] [place] [address] , Service support , Assessment & Plan Assessment/Plan (1) Chest pain: PLAN: Plan #Chest pain to rule out ACS admit to PCU with telemetry Complains of chest pain which is worsened by exertion and relieved by rest. He had associated lightheadedness and nausea and vomiting. He does have a history of CAD and has had some stents placed. Initial troponin is negative. EKG shows no acute ST changes. Cycle troponins. P.o. aspirin and statin as well as Plavix and Imdur For stress test tomorrow #Type 2 diabetes mellitus: On Trulicity shots monthly. Also on Lantus 26 units in the mornings. Insulin sliding scale. Accu-Cheks ACHS. #Hypothyroidism: On Synthroid GERD: On PPI DVT prophylaxis; lovenox CODE STATUS: Full code Charges/Coding Visit Charges Inpatient E&M: 41851 Init Hosp L2
--- NOTE | 2024-04-01 17:09 | NURSING ---
DR ARIELLA CAMPBELL
--- NOTE | 2024-04-01 17:35 | NURSING ---
KATERINAU OBS ARIELLA PASTRANA
[2024-04-01 20:46] LABS: Troponin-I HS 7 pg/mL (3.0-78.0)
[2024-04-02] VITALS: BP 146/82; PULSE 61; RESP 16; TEMP 36.5; O2SAT 98
[2024-04-02 06:00] VITALS: BP 137/87; PULSE 53; RESP 14; TEMP 36.7; O2SAT 99
[2024-04-02] MEDS: Aspirin 81 MG TAB.CHEW PO (06:19)
[2024-04-02] MEDS: Levothyroxine 25 MCG TABLET PO (06:21)
[2024-04-02 06:30] LABS: Absolute Lymphocyte Count 3.02 X10^3/uL (0.83-4.51); Absolute Neutrophil Count 10.7 X10^3/uL (2.0-7.7); Basophil# 0.07 X10^3/uL; Basophil% 0.5 % (0-1); Eosinophil# 0.13 X10^3/uL; Eosinophils% 0.9 % (0-5); Hematocrit 50.3 % (40-54); Hemoglobin 16.7 g/dL (13.0-16.5); Lymphocyte # 3.02 X10^3/ul (0.83-4.51); Lymphocyte % 19.8 % (19-41); Mean Corp Hgb Conc 33.2 g/dL (32-36); Mean Corpuscular Hgb 30.5 pg (27.0-32.0); Mean Platelet Vol. 10.8 fl (6.2-12.0); Monocyte# 1.29 X10^3/uL; Monocyte% 8.4 % (0-10); NRBC Flagged by Analyzer 0 % (0-5); Neutrophil # 10.69 X10^3/uL (2.7-7.7); Neutrophil % 69.8 % (47-70); Platelet Count 278 K/mm3 (150-450); RBC Distribution Width SD 43.8 fl (35.1-43.9); Red Blood Count 5.47 M/mm3 (4.6-6.2); White Blood Count 15.3 K/mm3 (4.4-11.0)
[2024-04-02 06:35] LABS: Bedside Glucose 129 mg/dL (74-106)
[2024-04-02] MEDS: Lisinopril 5 MG Tablet PO (06:50)
[2024-04-02 06:58] LABS: Anion Gap 5 (5-15); BUN 18 mg/dL (7-18); Calcium,Total 9.4 mg/dL (8.5-10.1); Chloride 104 mmol/L (98-107); EST Glomerular Filtration Rate 85 mL/min (>60); Est Glom Filt Rate - Afr Amer 102 mL/min (>60); Estimated Creatinine Clearance 116.76 ml/min; Glucose 146 mg/dL (74-106); Potassium 4.6 mmol/L (3.5-5.1); Sodium Level 136 mmol/L (136-145)
[2024-04-02 09:30] VITALS: PULSE 76
[2024-04-02 09:32] VITALS: BP 123/79; PULSE 76; RESP 16; TEMP 36.6; O2SAT 99
[2024-04-02 09:52] VITALS: BP 123/79; PULSE 76; RESP 18; TEMP 36.6; O2SAT 99
[2024-04-02] MEDS: Insulin Glargine-YFGN 100 UNIT/ML Pen 26 UNIT SC (11:43)
[2024-04-02] MEDS: Enoxaparin 40 MG/0.4 ML Syringe SC (11:44)
[2024-04-02] MEDS: Pantoprazole Sodium 20 MG Tablet PO (11:45)
[2024-04-02] MEDS: DULoxetine Hcl 30 MG Capsule PO (11:46)
[2024-04-02] MEDS: Clopidogrel Bisulfate 75 MG Tablet PO (11:46)
[2024-04-02 11:56] LABS: Bedside Glucose 147 mg/dL (74-106)
--- NOTE | 2024-04-02 12:00 | STRESSREP_ITS ---
Stress Test Report Date: 04/02/2024 Procedure: Exercise tolerance test/imaging study Indications: Chest pain Consent: Per the patient Procedure: The patient exercised on a Conner protocol for 6 minutes and 16 seconds achieving a peak heart rate of 151 bpm (87% predicted maximal heart rate) with a peak blood pressure 190/96 mmHg and a peak MET capacity of 7.7 METs. The baseline ECG demonstrated sinus rhythm. The peak exercise ECG demonstrated no ischemic changes. There were no cardiac dysrhythmias pretest, during exercise, or recovery. The functional capacity was considered average. Minimal chest discomfort reported preexercise which remained unchanged with exercise. The examination was discontinued secondary to dyspnea. The patient was injected with 14.8 mCi of technetium 99m Cardiolite and subsequently rest SPECT Cardiolite nuclear imaging was obtained in the horizontal long, vertical long, and short axis views. Post-exercise, the patient was injected with 44.3 mCi of technetium 99m Cardiolite and subsequently stress SPECT Cardiolite nuclear imaging was obtained in the horizontal long, vertical long, and short axis views. A gated Cardiolite study at peak stress was obtained. Rest and stress SPECT Cardiolite nuclear imaging status post realignment, normalization, and attenuation correction, demonstrates a small apical perfusion defect which remains unchanged post exercise. There is end systolic thickening and brightening. The gated Cardiolite study demonstrates myocardial thickening and inward wall motion. The reported LVEF is 59%. Impression: 1. Technically adequate (percent predicted maximal heart rate greater than 85%) exercise tolerance test 2. Peak exercise ECG with no ischemic changes 3. There were no cardiac dysrhythmias pretest, during exercise, or recovery 4. Rest and stress SPECT Cardiolite nuclear imaging demonstrate a small fixed apical defect. No reversible ischemia. 5. The gated Cardiolite study reports an LVEF of 59%. This note was generated with [employer] Integrated [employer] software. It may contain incorrect words, spelling, and punctuation that were not noted in checking the note before signing.
--- NOTE | 2024-04-02 12:08 | CASEMGMT ---
Social Work As per admitting RN, pt does not have LW/POA, declined further information. CARMENCITA Jaimes
--- NOTE | 2024-04-02 12:23 | PCM.DC.SUM ---
Providers Date of Admission: 04/01/24 Primary Care Physician: Dr. Darinel Armstrong MD Reason For Visit: CHEST PAIN Diagnosis Discharge Diagnosis (1) Chest pain: Status: Inactive Code(s): R07.9 - Chest pain, unspecified Medications at Discharge Home Medications levothyroxine 25 mcg tablet 25 tablet PO DAILY THYROID 07/20/21 OneTouch Verio Flex meter (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 meter) #1 ea 09/04/21 OneTouch Verio test strips (blood sugar diagnostic) #450 ea 09/04/21 FreeStyle Lite Strips (blood sugar diagnostic) #100 ea 09/06/21 aspirin 81 mg chewable tablet 81 mg PO BREAKFAST HEART HEALTH 08/28/22 atorvastatin 40 mg tablet 40 mg PO DAILY CHOLESTEROL 08/28/22 omeprazole 20 mg capsule,delayed release 20 mg PO DAILY GERD 08/28/22 nitroglycerin 0.4 mg sublingual tablet 0.4 mg sublingual Q5M PRN CHEST PAIN 01/01/23 flash glucose scanning reader (FreeStyle Ximena 2 [place]) #1 ea 05/08/23 duloxetine 30 mg capsule,delayed release 30 mg PO DAILY 07/05/23 pen needle, diabetic 31 gauge x 1/4 #120 ea 07/09/23 lisinopril 5 mg tablet 5 mg PO DAILY BLOOD PRESSURE 10/04/23 isosorbide mononitrate 60 mg tablet,extended release 24 hr 60 mg PO DAILY #90 tabs 11/01/23 flash glucose sensor (FreeStyle Ximena 2 Sensor kit) #6 ea 11/21/23 clopidogrel 75 mg tablet (Plavix) 75 mg PO DAILY BLOOD THINNER #90 tabs 12/23/23 dulaglutide 1.5 mg/0.5 mL subcutaneous pen injector (Trulicity) 1.5 mg subcut MO 04/01/24 insulin aspart U-100 100 unit/mL (3 mL) subcutaneous pen (Novolog FlexPen U-100 Insulin aspart) 12 unit subcut TIDCM DIABETES 04/01/24 insulin glargine 100 unit/mL (3 mL) subcutaneous pen (Lantus Solostar U-100 Insulin) 26 unit subcut QAM 04/01/24 Hospital Course Operations None Procedures Stress test Summary of Care Provided Hospital Course: Patient presents with chest pain as well as back pain. Patient had frontiers that was negative, EKG that was unremarkable and a stress test that showed no acute process. So patient is not having any cardiac related chest pain at this time. He said he was concerned because she was having some diaphoresis at night. She was recently treated for infection on his left fifth toe. On evaluation, he has a scar over that area but no wounds. He does have a callus under his right plantar forefoot but without any erythema and there is no evidence of any lesions anywhere in his feet. It was reported the patient he does have some leukocytosis that and of itself nonspecific but if he is having worsening fevers chills, to notify his physician. Patient has been having some PVCs periodically which she does get symptomatic when there is a pause afterwards but appears to be infrequent. His baseline resting heart rates in the 40s to 50s so I do not feel adding beta-flo would be of benefit for him. Physical Exam Const alert and no apparent distress General Appearance: cooperative Resp normal respiratory effort and no retractions Extremity Extremity Narrative: No lesions on his feet. Does have a callus under his right forefoot without any erythema or lesions. Weight / BMI Weight Weight: 115.5 kg Body Mass Index (BMI) 35.5 ABG / Lab / Microbiology Data 04/02/24 05:43 04/02/24 05:43 Laboratory: Laboratory Results - last 24 hr 04/01/24 14:15: Sodium 136, Potassium 4.6, Chloride 103, Carbon Dioxide 27.0, Anion Gap 6, BUN 18, Creatinine 1.13, Estim Creat Clear Calc 103.34, Est GFR (MDRD) Af Amer 89, Est GFR (MDRD) Non-Af 73, BUN/Creatinine Ratio 15.9, Glucose 150 H, Calcium 10.2 H, Troponin I High Sens 7, B-Natriuretic Peptide 9.8 04/01/24 14:35: WBC 18.6 H, RBC 5.47, Hgb 16.4, Hct 49.8, MCV 91.0, MCH 30.0, MCHC 32.9, RDW Std Deviation 43.0, RDW Coeff of Elias 13.0, Plt Count 324, MPV 10.6, Immature Gran % (Auto) 0.500, Neut % (Auto) 75.3 H, Lymph % (Auto) 16.0 L, [place] % (Auto) 7.5, Eos % (Auto) 0.3, Baso % (Auto) 0.4, Absolute Neuts (auto) 14.0 H, Absolute Lymphs (auto) 2.99, Nucleated RBC % 0 04/01/24 15:23: POC Glucose 140 H 04/01/24 16:33: Troponin I High Sens 6 04/01/24 20:14: Troponin I High Sens 7 04/02/24 05:43: WBC 15.3 H, RBC 5.47, Hgb 16.7 H, Hct 50.3, MCV 92.0, MCH 30.5, MCHC 33.2, RDW Std Deviation 43.8, RDW Coeff of Elias 13.0, Plt Count 278, MPV 10.8, Immature Gran % (Auto) 0.600, Neut % (Auto) 69.8, Lymph % (Auto) 19.8, [place] % (Auto) 8.4, Eos % (Auto) 0.9, Baso % (Auto) 0.5, Absolute Neuts (auto) 10.7 H, Absolute Lymphs (auto) 3.02, Nucleated RBC % 0, Sodium 136, Potassium 4.6, Chloride 104, Carbon Dioxide 27.0, Anion Gap 5, BUN 18, Creatinine 1.00, Estim Creat Clear Calc 116.76, Est GFR (MDRD) Af Amer 102, Est GFR (MDRD) Non-Af 85, BUN/Creatinine Ratio 18.0, Glucose 146 H, Calcium 9.4 04/02/24 06:17: POC Glucose 129 H 04/02/24 11:39: POC Glucose 147 H Radiography Diagnostic Testing: Radiology Impression Chest X-Ray 04/01/24 14:25 IMPRESSION: Normal x-ray examination of the chest. Electronically Signed: Steve Jung MD at 14:38 EDT , D/C Instructions Discharge Diet: 2000 Calorie Control Diet Meaningful Use Info Meaningful Use Meaningful Use Diagnoses (Choose all that apply): None applicable Ischemic Stroke Statin Dosing Therapy Reference: STATIN DOSE THERAPY REFERENCE: * Patients > 75 years receive moderate or high dose statin therapy. * Patients 75 years or YOUNGER should receive HIGH intensity statin dose unless contraindicated. You will be required to document reason for non-treatment if statin daily dose does not meet guidelines. HIGH DOSE STATIN THERAPY DAILY Atorvastatin > than or = to 40 mg Rosuvastatin > than or = to 20 mg Amlodipine + Atorvastatin > than or = to 2.5/40 mg Ezetimibe + Simvastatin 10/80 mg Simvastatin 80mg Discharge Plan Admission Admit Date/Time: 04/01/24 17:24 Primary Reason for Your Visit: Chest pain Attending Provider: Charbel Singh Primary Care Provider: Darinel Armstrong Consulting Providers: Abbey Rodriguez Instructions Additional Instructions / Restrictions: You had a stress test today that was normal. It does show a chronic changes prior related with your prior history but nothing that warrants cardiology involvement or repeat cardiac catheterizations. I do recommend that you follow-up with cardiology per your previous scheduled routine. You do have some PVCs (premature ventricular contractions) which gives you that fluttering in your chest you feel. It does not appear to be that common and no treatment indicated at this time. However if you start to feel more symptoms in the future or if it does seem to get worse or if you pass out with no warning, notify your physician or return to the emergency room. Discharge Orders/Prescriptions Prescriptions: Continued levothyroxine 25 mcg tablet 25 tablet PO DAILY (DME) 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 meter [OneTouch Verio Flex [place] [facility] [place] Instructions .ROUTE .MEDSUPPLY Qty: 1 0RF Rx Instructions: As directed (DME) OneTouch Verio test strips Strip See Rx Instructions .ROUTE .MEDSUPPLY Qty: 450 3RF Rx Instructions: 5x/day (DME) FreeStyle Lite Strips Strip See Rx Instructions .ROUTE .MEDSUPPLY Qty: 100 6RF Rx Instructions: 4x/day (DME) FreeStyle Ximena 2 [place] Misc See Rx Instructions .Route Qty: 1 0RF Rx Instructions: As directed duloxetine 30 mg capsule,delayed release(DR/EC) 30 mg PO DAILY lisinopril 5 mg tablet 5 mg PO DAILY atorvastatin 40 mg tablet 40 mg PO DAILY omeprazole 20 mg capsule,delayed release(DR/EC) 20 mg PO DAILY aspirin 81 mg tablet,chewable 81 mg PO BREAKFAST nitroglycerin 0.4 mg tablet, sublingual 0.4 mg sublingual Q5M PRN (Reason: CHEST PAIN ) insulin aspart U-100 [Novolog FlexPen U-100 Insulin] 100 unit/mL (3 mL) insulin pen 12 unit SUBCUT TIDCM insulin glargine [Lantus Solostar U-100 Insulin] 100 unit/mL (3 mL) insulin pen 26 unit subcut QAM Trulicity 1.5 mg/0.5 mL pen injector 1.5 mg subcut [place] (DME) pen needle, diabetic 31 gauge x 1/4 needle See Rx Instructions .ROUTE .MEDSUPPLY Qty: 120 6RF Rx Instructions: 4x/day isosorbide mononitrate 60 mg tablet extended release 24 hr 60 mg PO DAILY Qty: 90 3RF (DME) FreeStyle Ximena 2 Sensor Kit See Rx Instructions .Route Qty: 6 1RF Rx Instructions: 1 sensor q 14 days clopidogrel [Plavix] 75 mg tablet 75 mg PO DAILY Qty: 90 3RF Referrals / Follow Up: [facility] [Provider Group] - 04/07/24 11:30 am Darinel Armstrong MD [Primary Care Provider] - Within 2 Weeks Disposition Disposition (needs filled in before D/C Order can be placed): Home, Self Care Charges/Coding Visit Charges Inpatient E&M: 73119 Disch Hosp
[2024-04-02 12:30] VITALS: BP 129/83; PULSE 63; RESP 18; TEMP 36.6; O2SAT 97
--- NOTE | 2024-04-02 12:52 | CASEMGMT ---
Order for DC placed. This RN CM to pt bedside regarding DC planning. Pt denies needs at home and states that he feels safe discharging home today without any additional needs.
--- NOTE | 2024-04-02 14:06 | PHA.DC.MR.R ---
Pharmacy [place] Med Reconciliation Pharmacy Service has performed discharge medication reconciliation for this patient. Patient had no new medications at time of discharge. Medications reviewed are from previously reported home medications. The patient's discharge medication list was reviewed for discrepancies and discrepancies were resolved. Medications at Discharge Home Medications levothyroxine 25 mcg tablet 25 tablet PO DAILY THYROID 07/20/21 OneTouch Verio Flex meter (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 meter) #1 ea 09/04/21 OneTouch Verio test strips (blood sugar diagnostic) #450 ea 09/04/21 FreeStyle Lite Strips (blood sugar diagnostic) #100 ea 09/06/21 aspirin 81 mg chewable tablet 81 mg PO BREAKFAST HEART HEALTH 08/28/22 atorvastatin 40 mg tablet 40 mg PO DAILY CHOLESTEROL 08/28/22 omeprazole 20 mg capsule,delayed release 20 mg PO DAILY GERD 08/28/22 nitroglycerin 0.4 mg sublingual tablet 0.4 mg sublingual Q5M PRN CHEST PAIN 01/01/23 flash glucose scanning reader (FreeStyle Ximena 2 [place]) #1 ea 05/08/23 duloxetine 30 mg capsule,delayed release 30 mg PO DAILY 07/05/23 pen needle, diabetic 31 gauge x 1/4 #120 ea 07/09/23 lisinopril 5 mg tablet 5 mg PO DAILY BLOOD PRESSURE 10/04/23 isosorbide mononitrate 60 mg tablet,extended release 24 hr 60 mg PO DAILY #90 tabs 11/01/23 flash glucose sensor (FreeStyle Ximena 2 Sensor kit) #6 ea 11/21/23 clopidogrel 75 mg tablet (Plavix) 75 mg PO DAILY BLOOD THINNER #90 tabs 12/23/23 dulaglutide 1.5 mg/0.5 mL subcutaneous pen injector (Trulicity) 1.5 mg subcut MO 04/01/24 insulin aspart U-100 100 unit/mL (3 mL) subcutaneous pen (Novolog FlexPen U-100 Insulin aspart) 12 unit subcut TIDCM DIABETES 04/01/24 insulin glargine 100 unit/mL (3 mL) subcutaneous pen (Lantus Solostar U-100 Insulin) 26 unit subcut QAM 04/01/24
== END 2024-04-02 12:30 | disposition home or self-care (01) ==
LOC: ED 14:38 → PCU 18:02
PROVIDERS: Admitting Provider Student in an Organized Health Care Education/Training Program; Emergency Provider Emergency Medicine; PCP Family Medicine
DX: R07.89 Other chest pain (principal); E11.9 Type 2 diabetes mellitus without complications; Z79.4 Long term (current) use of insulin; I25.10 Atherosclerotic heart disease of native coronary artery without angina pectoris; E78.5 Hyperlipidemia, unspecified; Z79.82 Long term (current) use of aspirin; Z79.02 Long term (current) use of antithrombotics/antiplatelets; R11.2 Nausea with vomiting, unspecified; I49.3 Ventricular premature depolarization; I10 Essential (primary) hypertension; M54.9 Dorsalgia, unspecified; I25.2 Old myocardial infarction; Z79.899 Other long term (current) drug therapy; Z79.890 Hormone replacement therapy; K21.9 Gastro-esophageal reflux disease without esophagitis; E03.9 Hypothyroidism, unspecified
CPT/HCPCS: 36415; 71045; 78452; 80048; 82962; 83880; 84484; 85025; 93005; 93017; 96372; 96374; 99221; 99285; A9500; A4216; G0378; J2405

== ENCOUNTER → 2024-04-22 | Outpatient (CLI) | payer MEDICAID, SELFPAY ==
[2023-01-26 01:17] VITALS: BMI 38.2
== END | disposition home or self-care (01) ==
LOC: PSN 08:22
PROVIDERS: PCP Family Medicine; Referring Provider Nurse Practitioner Gerontology; Visit Provider Nurse Practitioner Gerontology
DX: R00.2 Palpitations (principal)
CPT/HCPCS: 93225; 93226

== ENCOUNTER → 2024-08-25 | Outpatient (CLI) | payer MEDICAID, SELFPAY ==
[2023-01-26 01:17] VITALS: BMI 38.2
[2024-08-25 13:29] LABS: Microalbumin,Random Urine 5.2 mg/L (NO RANGE EST.); Microalbumin:Creatinine Ratio 9.9 mg/g CRE (<30 mg/g CRE)
--- OUTSIDE RECORDS SUMMARY | 2024-08-25 18:11 | XMS RPT_ITS | CCD ---
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 Name Role Phone Darinel Simon MD Primary Care Provider [phone] DARINEL SIMON Primary Care Unavailable DARINEL SIMON Referring Unavailable DARINEL SIMON Primary Care Unavailable DARINEL SIMON Referring Unavailable DAVE ABREU Attending Unavailable DARINEL SIMON Primary Care Unavailable DARINEL SIMON Referring Unavailable DARINEL SIMON Attending Unavailable DARINEL SIMON Primary Care Unavailable PILI HATCH Referring Unavailable DARINEL SIMON Primary Care Unavailable Bailey DU Referring Unavailable DARINEL SIMON Primary Care Unavailable Bailey DU Attending Unavailable FANNY REYNA Attending Unavailable DARINEL SIMON Primary Care Unavailable DAVE ABREU Referring Unavailable DARINEL SIMON Primary Care Unavailable DAVE ABREU Referring Unavailable DARINEL SIMON Primary Care Unavailable DAVE ABREU Attending Unavailable DARINEL SIMON Primary Care Unavailable DAVE ABREU Referring Unavailable FANNY REYNA Referring Unavailable DARINEL SIMON Primary Care Unavailable PRISCILA TARANGO Attending Unavailable PRISCILA TARANGO Admitting Unavailable Medications Current Medications Medication Drug Class(es) Dates Sig (Normalized) Sig (Original) [id number] 200 actuat albuterol 0.09 mg/actuat metered dose inhaler (20 sources) beta2-Adrenergic Agonist Start: 04-16-2020 take 2 puff(s) by inhalation every four hours as needed albuterol HFA (VENTOLIN HFA) 90 mcg/actuation inhaler Indications: Acute bronchitis, unspecified organism Inhale 2 Puffs as instructed every 4 hours as needed. 1 Inhaler 1 04/16/2020 Active Comment on above: Inhale 2 Puffs as in structed every 4 hours as needed. amoxicillin 875 mg oral tablet (2 sources) Penicillin-class Antibacterial Start: 12-04-2022 End: 12-14-2022 take 1 tablet by mouth twice daily amoxicillin (AMOXIL) 875 mg tablet Take 1 tablet by mouth twice daily for 10 days. 20 tablet 0 12/04/2022 12/14/2022 Active Comment on above: Take 1 tablet by [facility] twice daily for 10 days. amoxicillin 875 mg / clavulanate 125 mg oral tablet (1 source) Penicillin-class Antibacterial Start: 06-30-2024 End: 07-05-2024 take 1 tablet by mouth twice daily amoxicillin-clavula edel potassium (AUGMENTIN) 875-125 mg per tablet Indications: Bacterial sinusitis Take 1 tablet by mouth two times a day for 5 days. 10 tablet 06/30/2024 07/05/2024 Active aspirin 81 mg oral tablet (20 sources) Platelet Aggregation Inhibitor, Nonsteroidal Anti-inflammatory Drug Start: 10-02-2021 End: 06-09-2024 take 1 tablet by mouth once daily aspirin 81 mg cap Take 1 tablet by mouth once daily. 90 capsule 3 12/12/2023 Active Comment on above: Take 1 tablet by [facility] once daily. atorvastatin 40 mg oral tablet (20 sources) HMG-CoA Reductase Inhibitor Start: 12-23-2023 End: 06-16-2024 take 1 tablet by mouth once daily atorvastatin (LIPITOR) 40 mg tablet Indications: Mixed hyperlipidemia Take 1 tablet by mouth once daily. 90 tablet 1 06/16/2024 Active Start: 03-21-2023 take 1 tablet by [facility] once daily atorvastatin (LIPITOR) 40 mg tablet Take 1 tablet by mouth once daily. 90 tablet 3 03/21/2023 Active Start: 11-08-2021 End: 09-05-2022 take 1 tablet by mouth once daily atorvastatin (LIPITOR) 40 mg tablet Take 1 tablet by mouth once daily. 90 tablet 1 09/05/2022 Active Comment on above: Take 1 tablet by [facility] once daily. Blood-Glucose Meter (FREESTYLE LITE METER) monitoring kit (20 sources) Start: 01-14-2019 Blood-Glucose Meter (FREESTYLE LITE METER) monitoring kit Use to test blood sugar as directed. 1 Each 01/14/2019 Active Start: 01-14-2019 Blood-Glucose Meter (FREESTYLE LITE METER) monitoring kit Use to test blood sugar as directed. 1 Each 0 01/14/2019 Active Comment on above: Use to test blood [facility] as directed. clopidogrel 75 mg oral tablet (20 sources) P2Y12 Platelet Inhibitor Start: 09-03-20 take 1 tablet by mouth once clopidogrel (PLAVIX) 75 mg tablet Take 1 tablet by mouth once daily. Per [facility]. 30 tablet 11 09/03/2022 Active Comment on above: Take 1 tablet by [facility] once daily. Per [facility]. clotrimazole 10 mg/ml topical cream (20 sources) Azole Antifungal Start: 11-19-19 clotrimazole (LOTRIMIN) 1 % cream 11/19/2023 Active DULoxetine 30 mg delayed release oral capsule (20 sources) Serotonin and Norepinephrine Reuptake Inhibitor Start: 12-12-19 take 1 capsule by mouth twice daily DULoxetine (CYMBALTA) 30 mg capsule Take 1 capsule by mouth two times a day. 180 capsule 1 12/12/2023 Active Start: 12-04-2022 End: 12-12-2023 take 1 capsule by mouth once daily DULoxetine (CYMBALTA) 30 mg capsule Take 1 capsule by mouth once daily. 30 capsule 5 06/11/2023 12/12/2023 Discontinued Comment on above: Take 1 capsule by [facility] once daily. Take 1 capsule by [facility] two times a day. empagliflozin 10 mg oral tablet (8 sources) Sodium-Glucose Cotransporter 2 Inhibitor Start: 2023 take 1 tablet by mouth once JARDIANCE 10 mg tablet Take 1 tablet by mouth every afternoon. 06/08/2024 Active fluticasone propionate 0.05 mg/actuat metered dose nasal spray (20 sources) Corticosteroid Start: 2022 take 2 spray(s) by mouth once daily fluticasone (FLONASE) 50 mcg/actuation nasal spray Use 2 Sprays in each nostril once daily. Rinse mouth after use. 1 Each 2 12/04/2022 Active Comment on above: Use 2 Sprays in each nostril once daily. Rinse mouth after use. 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 And 9 units with snacks. Per Endocrine Dr. 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 And 6 units with snacks. Per Endocrine Dr. Conte 5 Pen 5 01/01/2022 02/07/2023 Discontinued (Adjust Sig - Block E-Cancel) Comment on above: Inject 12 Units subc utaneously three times daily before meals. And 6 units with snacks. Per Endocrine Dr. Conte Inject 18 Units subc utaneously three times daily before meals. And 9 units with snacks. Per Endocrine Dr. Conte 3 ml insulin glargine 100 unt/ml pen injector (20 sources) Insulin Analog Start: 02-07-2023 insulin glargine (BASAGLAR KWIKPEN U-100 INSULIN) 100 unit/mL (3 mL) Indications: diabetes mellitus Inject 26 Units subcutaneously every morning. Per EndocrineDr. Conte 02/07/2023 Active Start: 02-07-2023 insulin glargi ne (BASAGLAR KWIKPEN U-100 INSULIN) 100 unit/mL (3 mL) Indications: diabetes mellitus Inject 26 Units subcutaneously every morning. Per EndocrineDr. Conte 0 02/07/2023 Active Start: 01-01-2022 End: 02-07-2023 insulin glargine (BASAGLAR K JADAKPEN U-100 INSULIN) 100 unit/mL (3 mL) Indications: diabetes mellitus Inject 25 Units subcutaneously every morning. Per EndocrineDr. Conte 0 01/01/2022 02/07/2023 Discontinued (Adjust Sig - Block E-Cancel) Comment on above: Inject 25 Units subc utaneously every morning. Per Endocrine, Dr. Conte Inject 26 Units subc utaneously every morning. Per Endocrine, Dr. Conte 24 hr isosorbide mononitrate 60 mg extended release oral tablet (20 sources) Nitrate Vasodilator Start: take 1 tablet by mouth once isosorbide mononitrate ER (IMDUR) 60 mg 24 hr tablet Take 1 tablet by mouth once daily. Per [facility] 01/02/2023 Active Start: 04-25-2021 End: 01-02-2023 take 1 tablet by mouth once daily isosorbide mononitrate ER (IMDUR) 30 mg 24 hr tablet TAKE 1 TABLET BY MOUTH ONCE DAILY. HOLD FOR SYSTOLIC BLOOD PRESSURE LESS THAN 110 0 04/25/2021 01/02/2023 Discontinued (Changing Therapy/Dosage Form) Comment on above: TAKE 1 TABLET BY [place] ONCE DAILY. HOLD FOR SYSTOLIC BLOOD PRESSURE LESS THAN 110 Take 1 tablet by [facility] once daily. Per [facility] levothyroxine sodium 0.025 mg oral tablet (20 sources) l-Thyroxine Start: 022 End: 025 take 1 tablet by mouth once daily for thyroid dysfunction levothyroxine (LEVOXYL) 25 mcg tablet Indications: Acquired hypothyroidism Take 1 tablet by mouth once daily. Take on empty stomach. For Thyroid 90 tablet 1 06/16/2024 12/13/2024 Active Comment on above: Take 1 tablet by [place] once daily. Take on empty stomach. For Thyroid lisinopril 5 mg oral tablet (20 sources) Angiotensin Converting Enzyme Inhibitor Start: 023 lisinopril (ZESTRIL) 5 mg tablet Take 1 tablet by mouth once daily. Decreased by cardio 06/2023 due to low BP and dizziness 07/07/2023 Active Start: 03-21-2023 End: 07-07-2023 take 1 tablet by mouth once daily lisinopril (ZESTRIL) 10 mg tablet Take 1 tablet by mouth once daily. 90 tablet 3 03/21/2023 07/07/2023 Discontinued (Adjust Sig - Block E-Cancel) Start: 12-25-2022 take 1 tablet by [facility] once daily lisinopril (ZESTRIL, PRINIVIL) 10 mg tablet Take 1 tablet by mouth once daily. 0 12/25/2022 Active Start: 11-08-2021 End: 12-25-2022 take 1 tablet by mouth once daily lisinopril (ZESTRIL, PRINIVIL) 20 mg tablet Take 1 tablet by mouth once daily. 90 tablet 1 09/05/2022 12/25/2022 Discontinued (Adjust Sig - Block E-Cancel) Comment on above: Take 1 tablet by [facility] [facility] once daily. Take 1 tablet by [facility] once daily. Decreased by cardio 06/2023 due to low BP and dizziness nitrofurantoin, macrocrystals 25 mg / nitrofurantoin, monohydrate 75 mg oral capsule (1 source) Nitrofuran Antibacterial Start: 023 End: 023 take 1 capsule by mouth twice daily at mealtime nitrofurantoin monohydrate and macrocrystal (MACROBID) 100 mg capsule Take 1 capsule by mouth twice daily with meals for 7 days. 14 capsule 0 06/14/2023 06/21/2023 Active Comment on above: Take 1 capsule by [facility] twice daily with meals for 7 days. nitroglycerin 0.4 mg sublingual tablet (20 sources) Nitrate Vasodilator Start: 021 nitroglycerin sublingual (NITROQUICK) 0.4 mg SL tablet DISSOLVE ONE TABLET UNDER THE TONGUE EVERY 5 MINUTES NEEDED FOR CARDIAC CHEST PAIN 04/25/2021 Active Comment on above: DISSOLVE ONE TABLET UNDER THE TONGUE EVERY 5 MINUTES NEEDED FOR CARDIAC CHEST PAIN omeprazole 20 mg delayed release oral capsule (20 sources) Proton Pump Inhibitor Start: 022 End: 024 take 1 capsule by mouth once daily 30 minutes before breakfast omeprazole (PRILOSEC) 20 mg capsule TAKE 1 CAPSULE BY MOUTH ONCE DAILY 30 MINUTES BEFORE BREAKFAST 90 capsule 1 03/10/2024 Active Comment on above: TAKE ONE CAPSULE BY MOUTH ONCE DAILY 1/2 HOUR BEFORE BREAKFAST TAKE 1 CAPSULE BY MO [facility] ONCE DAILY 30 MINUTES BEFORE BREAKFAST perflutren lipid microspheres 1.3 mL in NaCl (PF) 0.9% 10 mL injection (DEFINITY) (20 sources) Start: End: perflutren lipid microspheres 1.3 mL in NaCl (PF) 0.9% 10 mL injection (DEFINITY) polyethylene glycol 3350 [id number] mg / potassium chloride 2970 mg / sodium bicarbonate 6740 mg / sodium chloride 5860 mg / sodium sulfate 49354 mg powder for oral solution (1 source) Osmotic Laxative Start: End: peg 3350-Electrolytes (GOLYTELY) 236-22.74-6.74 -5.86 gram suspension Indications: Positive colorectal cancer screening using Cologuard test , Encounter for screening for malignant neoplasm of colon Take 4,000 mL by mouth one time only for 1 dose. Refer to printed prep instructions from your provider. 4000 mL 07/22/2024 07/22/2024 Active 125 ml sodium chloride 9 mg/ml prefilled syringe (20 sources) Start: End: sodium chloride 0.9 % (flush) 10 mL (BD POSIFLUSH) Completed/Discontinued Medications Medication Drug Class(es) Dates Sig (Normalized) Sig (Original) Blood Pressure Monitor (BLOOD PRESSURE KIT) (15 sources) Start: 04-21-2021 Blood Pressure Monitor (BLOOD PRESSURE KIT) Take blood pressure a few days a week. Dx: I10 1 Kit 0 04/21/2021 Active Comment on above: Take blood pressure a few days a week. Dx: I10 0.5 ml dulaglutide 3 mg/ml auto-injector (20 sources) GLP-1 Receptor Agonist Start: 02-07-2023 End: 06-16-2024 dulaglutide (TRULICITY) 1.5 mg/0.5 mL pen injector Inject 1.5 mg subcutaneously one time a week. Inject once per week. Discard Pen After. Per Dr. Dg morley 02/07/2023 06/16/2024 Discontinued Start: 09-05-2021 End: 02-07-2023 inject 0.75 mg by subcutaneous injection every week dulaglutide (TRULICITY) 0.75 mg/0.5 mL pen injector Inject 0.75 mg subcutaneously one time a week. Inject dose once per week. Discard Pen After, Per Dr. Dg morley 0 09/05/2021 02/07/2023 Discontinued (Changing Therapy/Dosage Form) Comment on above: Inject 0.75 mg subcu taneously one time a week. Inject dose once per week. Discard Pen After, Per Dr. Dg morley Inject 1.5 mg subcut aneously one time a week. Inject once per week. Discard Pen After. Per Dr. Dg morley FLUoxetine 40 mg oral capsule (5 sources) Serotonin Reuptake Inhibitor Start: 09-15-20 End: 09-05-20 take 1 capsule by mouth once daily FLUoxetine (PROZAC) 40 mg capsule Take 1 capsule by mouth once daily. 30 capsule 1 05/24/2022 09/05/2022 Discontinued (Discontinued by Patient) Comment on above: Take 1 capsule by mo [facility] once daily. gabapentin 100 mg oral capsule (10 sources) Anti-epileptic Agent Start: 04-12-20 End: 12-12-19 take 2 capsules by mouth twice daily gabapentin (NEURONTIN) 100 mg capsule Take 2 capsules by mouth twice daily for 90 days. 180 capsule 0 04/12/2023 12/12/2023 Discontinued (Lack of Efficacy) Comment on above: Take 2 capsules by [facility] twice daily for 90 days. loratadine 10 mg oral tablet (8 sources) Start: 12-04-19 take 1 tablet by mouth once daily loratadine (CLARITIN) 10 mg tablet Take 1 tablet by mouth once daily. 30 tablet 1 12/04/2022 Active Comment on above: Take 1 tablet by [facility] once daily. 24 hr metoprolol succinate 25 mg extended release oral tablet (15 sources) beta-Adrenergic Flo Start: 05-04-20 take 1 tablet by mouth every hour metoprolol succinate ER (TOPROL XL) 25 mg 24 hr tablet Take 1 tablet by mouth once daily. Per Cardio. Dr. Harrison 0 05/04/2021 Active Comment on above: Take 1 tablet by [place] once daily. Per Cardio. Dr. Harrison ticagrelor 90 mg oral tablet (3 sources) Start: 04-25-20 End: 09-03-20 take 1 tablet by mouth twice daily BRILINTA 90 mg tablet Take 90 mg by mouth twice daily. 0 04/25/2021 09/03/2022 Discontinued (Discontinued by another Health Care Provider) Comment on above: Take 90 mg by mouth twice daily. Problems Active Problems Problem Classification Problem Date Documented Da te Episodic/Chronic Anxiety disorders (20 sources) Panic attack; Translations: [Panic disorder [episodic paroxysmal anxiety]] Onset: 1 11-04-2019 Chronic Bacterial infection; unspecified site (1 source) Other specified bacterial agents as the cause of diseases classified elsewhere; Translations: [Bacterial sinusitis] Onset: 4 Episodic Cataract (20 sources) Bilateral cataracts; Translations: [Unspecified cataract] Onset: 6 11-04-2019 Chronic Coronary atherosclerosis and other heart disease (20 sources) Coronary atherosclerosis; Translations: [Atherosclerotic heart disease of [place] coronary artery without angina pectoris] Onset: 1 Resolved: 4 04-27-2021 Chronic Diabetes mellitus with complications (20 sources) Type 2 diabetes mellitus; Translations: [Type 2 diabetes mellitus with mild nonproliferative diabetic retinopathy without macular edema, unspecified eye] Onset: 9 Resolved: 7 07-26-2021 Chronic Diseases of white blood cells (3 sources) Leukocytosis; Translations: [Elevated white blood cell count, unspecified] Onset: 4 06-23-2024 Chronic Disorders of lipid metabolism (20 sources) Mixed hyperlipidemia; Translations: [Mixed hyperlipidemia] Onset: 9 11-04-2019 Chronic Esophageal disorders (20 sources) Gastroesophageal reflux disease without esophagitis; Translations: [Gastro-esophageal reflux disease without esophagitis] Onset: 0 11-04-2019 Chronic Essential hypertension (20 sources) Hypertensive disorder; Translations: [Essential (primary) hypertension] Onset: 6 11-04-2019 Chronic Immunizations and screening for infectious disease (1 source) Vaccination needed; Translations: [Encounter for immunization] 12-12-2023 Episodic Occlusion or stenosis of precerebral arteries (20 sources) Bilateral stenosis of carotid arteries; Translations: [Occlusion and stenosis of bilateral carotid arteries] Onset: 1 05-08-2021 Chronic Other aftercare (20 sources) Patient encounter status; Translations: [Other long term care pharmacist (current) drug therapy] Onset: 1 04-21-2021 Episodic Other circulatory disease (20 sources) Stenosis of right subclavian artery; Translations: [Stricture of artery] Onset: 1 05-08-2021 Chronic Other circulatory disease (1 source) Stricture of artery; Translations: [Subclavian artery stenosis, right (HCC)] Onset: 1 Chronic Other gastrointestinal disorders (2 sources) Stool DNA-based colorectal cancer screening positive; Translations: [Other fecal abnormalities] 07-21-2024 Episodic Other gastrointestinal disorders (2 sources) Other fecal abnormalities; Translations: [Positive colorectal cancer screening using Cologuard test] Onset: 4 Episodic Other non-traumatic joint disorders (1 source) Joint pain; Translations: [Pain in unspecified joint] 12-12-2023 Episodic Other nutritional; endocrine; and metabolic disorders (20 sources) Obese class II; Translations: [Obesity, unspecified] 11-04-2019 Chronic Other nutritional; endocrine; and metabolic disorders (1 source) Obesity, unspecified; Translations: [Obesity, Class II, BMI 35-39.9] Onset: 0 Chronic Other screening for suspected conditions (not mental disorders or infectious disease) (3 sources) Encounter for screening for malignant neoplasm of colon; Translations: [Screening for colon cancer] Onset: 4 Episodic Other skin disorders (1 source) [place] - lesion ; Translations: [Corns and callosities] 06-16-2024 Episodic Other skin disorders (1 source) Corns and callosities; Translations: [Pre-ulcerative corn or callous] Onset: 4 Episodic Other upper respiratory disease (20 sources) Allergic rhinitis; Translations: [Allergic rhinitis, unspecified] Onset: 3 11-04-2019 Chronic Other upper respiratory infections (2 sources) Bacterial sinusitis; Translations: [Chronic sinusitis, unspecified] Onset: 4 06-30-2024 Chronic Other upper respiratory infections (1 source) Sinusitis; Translations: [Acute sinusitis, unspecified] Episodic Screening and history of mental health and substance abuse codes (1 source) Encounter for screening for depression; Translations: [Screening for depression] Onset: 4 Episodic Substance-related disorders (20 sources) Marijuana user; Translations: [Cannabis use, unspecified, uncomplicated] 11-04-2019 Episodic Syncope (1 source) Near syncope; Translations: [Syncope and collapse] Episodic Thyroid disorders (20 sources) Acquired hypothyroidism; Translations: [Hypothyroidism, unspecified] Onset: 05-01-2021 Chronic Urinary tract infections (1 source) Recurrent urinary tract infection; Translations: [Urinary tract infection, site not specified] 06-14-2023 Episodic Past or Other Problems Problem Classification Problem Date Documented Date Episodic/Chronic Abdominal pain (18 sources) Epigastric pain; Translations: [Epigastric pain] Onset: 01-14-2013 Resolved: 05-06-2017 06-11-2023 Episodic Acute myocardial infarction (17 sources) Myocardial infarction; Translations: [Acute myocardial infarction, unspecified] Onset: 09-24-2022 Resolved: 12-12-2023 12-12-2023 Chronic Blindness and vision defects (17 sources) Blurring of visual image; Translations: [Other visual disturbances] Onset: 12-12-2023 Resolved: 12-12-2023 12-12-2023 Episodic Calculus of urinary tract (20 sources) History of calculus of kidney; Translations: [Personal history of urinary calculi] Onset: 01-14-2013 11-04-2019 Episodic Cardiac dysrhythmias (17 sources) Bradycardia; Translations: [Bradycardia, unspecified] Onset: 12-12-2023 Resolved: 12-12-2023 12-12-2023 Episodic Conditions associated with dizziness or vertigo (20 sources) Lightheadedness; Translations: [Dizziness and giddiness] Onset: 12-12-2023 Resolved: 12-12-2023 Episodic Coronary atherosclerosis and other heart disease (17 sources) Patient post percutaneous transluminal coronary angioplasty; Translations: [Coronary angioplasty status] Onset: 12-12-2023 Resolved: 12-12-2023 12-12-2023 Episodic Gastritis and duodenitis (17 sources) Gastritis; Translations: [Gastritis, unspecified, without bleeding] Onset: 09-07-2010 Resolved: 05-06-2017 05-06-2017 Episodic Genitourinary symptoms and ill-defined conditions (20 sources) Tom hematuria; Translations: [Gross hematuria] Onset: 01-14-2013 Resolved: 12-12-2023 06-11-2023 Episodic Headache; including migraine (17 sources) Headache; Translations: [Headache, unspecified] Onset: 12-12-2023 Resolved: 12-12-2023 12-12-2023 Episodic Influenza (17 sources) Influenza due to Influenza A virus; Translations: [Influenza due to other identified influenza virus with other respiratory manifestations] Onset: 12-12-2023 Resolved: 12-12-2023 12-12-2023 Episodic Nonspecific chest pain (17 sources) Chest pain; Translations: [Chest pain, unspecified] Onset: 01-14-2023 Resolved: 12-12-2023 12-12-2023 Episodic Other aftercare (1 source) Other long term care pharmacist (current) drug therapy; Translations: [Medication management] Onset: 04-21-2021 Episodic Other circulatory disease (17 sources) H/O: heart disorder; Translations: [Personal history of other diseases of the circulatory system] Onset: 12-12-2023 Resolved: 12-12-2023 12-12-2023 Episodic Other connective tissue disease (20 sources) Plantar fasciitis of left foot; Translations: [Plantar fascial fibromatosis] Onset: 11-04-2019 Resolved: 12-12-2023 11-04-2019 Episodic Other connective tissue disease (17 sources) Bilateral weakness of upper limbs; Translations: [Other symptoms and signs involving the musculoskeletal system] Onset: 12-12-2023 Resolved: 12-12-2023 12-12-2023 Episodic Other eye disorders (17 sources) Abducens nerve palsy; Translations: [Sixth [abducent] nerve palsy, unspecified eye] Onset: 12-12-2023 Resolved: 12-12-2023 12-12-2023 Episodic Other lower respiratory disease (17 sources) Dyspnea; Translations: [Shortness of breath] Onset: 12-12-2023 Resolved: 12-12-2023 12-12-2023 Episodic Other nervous system disorders (20 sources) Neuropathy; Translations: [Polyneuropathy, unspecified] Onset: 11-04-2019 Resolved: 12-12-2023 11-04-2019 Chronic Other nervous system disorders (17 sources) Bilateral carpal tunnel syndrome; Translations: [Carpal tunnel syndrome, bilateral upper limbs] Onset: 09-01-2010 Resolved: 05-06-2017 05-06-2017 Chronic Other non-traumatic joint disorders (20 sources) Bilateral chronic pain of upper limbs; Translations: [Pain in right shoulder] Onset: 03-11-2009 11-04-2019 Episodic Other non-traumatic joint disorders (17 sources) Shoulder pain; Translations: [Pain in unspecified shoulder] Onset: 12-04-2022 Resolved: 12-12-2023 12-12-2023 Episodic Other nutritional; endocrine; and metabolic disorders (20 sources) Obesity; Translations: [Obesity, unspecified] Onset: 05-10-2006 Resolved: 05-06-2017 05-06-2017 Chronic Other nutritional; endocrine; and metabolic disorders (17 sources) Abnormal weight gain; Translations: [Abnormal weight gain] Onset: 12-12-2023 Resolved: 12-12-2023 12-12-2023 Episodic Other nutritional; endocrine; and metabolic disorders (17 sources) H/O: diabetes mellitus; Translations: [Personal history of other endocrine, nutritional and metabolic disease] Onset: 12-12-2023 Resolved: 12-12-2023 12-12-2023 Episodic Other skin disorders (17 sources) Disorder of foot; Translations: [Disorder of the skin and subcutaneous tissue, unspecified] Onset: 12-12-2023 Resolved: 12-12-2023 12-12-2023 Episodic Residual codes; unclassified (17 sources) H/O: anxiety state; Translations: [Other specified personal risk factors, not elsewhere classified] Onset: 12-12-2023 Resolved: 12-12-2023 12-12-2023 Episodic Spondylosis; intervertebral disc disorders; other back problems (20 sources) Chronic low back pain; Translations: [Lumbago with sciatica, left side] Onset: 01-15-2011 11-04-2019 Episodic Sprains and strains (17 sources) Shoulder strain; Translations: [Strain of unspecified muscle, fascia and tendon at shoulder and upper arm level, unspecified arm, initial encounter] Onset: 12-12-2023 Resolved: 12-12-2023 12-12-2023 Episodic Unclassified (17 sources) Type 2 diabetes mellitus without complication; Translations: [Diabetes mellitus type 2, uncontrolled, without complications] Onset: 12-11-2012 Resolved: 05-06-2017 05-06-2017 Results Test Name Value Interpretation Reference Range Facility ANES POSTPROC EVALon 024 ANES POSTPROC EVAL HNO ID: [id number] Author: DINORAH GRANADO MD Service: Anesthesiology Author Type: Physician Type: Anesthesia Postprocedure Evaluation Filed: 07/30/2024 12:52 Note Text: POST ANESTHESIA EVALUATION NOTE : 1975 Procedure Summary Date: 07/30/24 Room / Location: SURGERY Anesthesia Start: 1211 Anesthesia Stop: Procedures: COLONOSCOPY DIAGNOSTIC EGD DIAGNOSTIC Diagnosis: Positive colorectal cancer screening using Cologuard test Encounter for screening for malignant neoplasm of colon Positive colorectal cancer screening using Cologuard test Encounter for screening for malignant neoplasm of colon Scheduled Providers: Priscila Tarango MD; Dinorah Granado MD Responsible Provider: Dinorah Granado MD Anesthesia Type: MAC ASA Status: 3 Anesthesia Type: MAC Last Vitals Vitals Value Taken Time BP 110/72 07/30/24 1250 Temp 97.4 07/30/24 1252 Pulse 73 07/30/24 1251 Resp 16 07/30/24 1251 SpO2 93 % 07/30/24 1251 Vitals shown include unfiled device data. Post Anesthesia Patient Status Patient Evaluation: bedside. Anticipated Disposition: phase 2 then home. Neurological Status: aware and responsive. Pulmonary Status: breathing comfortably on room air Airway Control: returned to baseline unsupported. Cardiovascular Status: stable. Pain Management: clinically adequate Postoperative Hydration: acceptable. Intraoperative Events: no significant anesthesia events Post Operative Nausea/Vomiting Status: no significant post operative nausea or vomiting Recommendation: continue current plan of care. Anesthesia Observations No Documentation SIGNATURE: Dinorah Granado MD PATIENT NAME: Michael Youngblood DATE: July 30, 2024 TIME: 12:52 PM CSN: [id number] Normal [facility] ANES PRE-OPon 07-30-2024 ANES PRE-OP HNO ID: [id number] Author: DINORAH GRANADO MD Service: Anesthesiology Author Type: Physician Type: Anesthesia Preprocedure Evaluation Filed: 07/30/2024 12:08 Note Text: ANESTHESIOLOGY DAY OF SURGERY NOTE : 1975 Procedure Information Date/Time: 07/30/24 1200 Scheduled providers: Priscila Tarango MD; Dinorah Granado MD Procedures: COLONOSCOPY DIAGNOSTIC EGD DIAGNOSTIC Location: LD SURGERY Estimated body mass index is 36.59 kg/m? as calculated from the following: Height as of 07/23/24: 177.8 cm (5' 10 ). Weight as of 07/23/24: 115.7 kg (255 lb). Most recent hematocrit and potassium results: HCT 47.2 07/16/2024 K 4.7 06/16/2024 Relevant Problems CARDIO (+) Bilateral carotid artery stenosis (+) Coronary artery disease due to lipid rich plaque (+) Hypertension goal BP (blood pressure) < 140/90 (+) Subclavian artery stenosis, right (HCC) ENDO (+) Acquired hypothyroidism GI (+) GERD without esophagitis NEURO-PSYCH (+) History of kidney stones (+) History of non-ST elevation myocardial infarction (NSTEMI) I - PHYSICAL EVALUATION AIRWAY Patient intubated: No. Tracheostomy tube not present Mallampati: III. TM distance: <3 FB. Neck ROM: full ROM without neurological symptoms. Mouth opening: adequate. Short neck: yes. Thick neck: yes Ordonez present: yes Microretrognathia/Micronagthi a/Recessed Chin: No DENTAL Dental findings: broken tooth. Additional comments: Broken left upper molar. Additional exam findings: yes. CARDIOVASCULAR Normal cardiovascular observations. PULMONARY Normal pulmonary observations. II - ANESTHESIA PLAN ASA Score: 3 Anesthetic Plan: MAC The patient is a current smoker. (marijuanna last used yesterday) NPO Status: adequate Beta Flo Monitoring Plan Monitoring plan: standard ASA. Post Procedure Analgesic Plan Postoperative analgesic plan: parenteral or oral opioids. Informed Consent Anesthetic risks, benefits, alternatives, personnel and consent discussed: yes. Patient / Responsible Republican agrees to proceed: yes Patient / Surrogate agrees to blood products: Yes Significant changes in the patient condition since the History and Physical, not otherwise documented in primary service progress note: no. Potential Anesthesia issues that may suggest increased risk of complications or contraindication to planned procedure: none. Vitals Value Taken Time BP 133/82 07/30/24 1056 Pulse Resp 12 07/30/24 1056 Temp 36.9 ?C (98.4 ?F) 07/30/24 1056 SpO2 97 % 07/30/24 1056 Facility-Administered Medications as of 07/30/2024 Medication Dose Route Frequency - lidocaine (PF) 10 mg/mL (1 %) 1-2 mg injection (XYLOCAINE) 0.1-0.2 mL INTRADERMAL PRN - lactated ringers iv infusion 75 mL/hr INTRAVENOUS CONTINUOUS Outpatient Medications as of 07/30/2024 Medication Sig - atorvastatin (LIPITOR) 40 mg tablet Take 1 tablet by mouth once daily. - levothyroxine (LEVOXYL) 25 mcg tablet Take 1 tablet by mouth once daily. Take on empty stomach. For Thyroid - omeprazole (PRILOSEC) 20 mg capsule TAKE 1 CAPSULE BY MOUTH ONCE DAILY 30 MINUTES BEFORE BREAKFAST - DULoxetine (CYMBALTA) 30 mg capsule Take 1 capsule by mouth two times a day. - lisinopril (ZESTRIL) 5 mg tablet Take 1 tablet by mouth once daily. Decreased by cardio 06/2023 due to low BP and dizziness - insulin glargine (BASAGLAR KWIKPEN U-100 INSULIN) 100 unit/mL (3 mL) Inject 26 Units subcutaneously every morning. Per Endocrine, Dr. Conte - insulin aspart U-100 (NOVOLOG FLEXPEN U-100 INSULIN) 100 unit/mL (3 mL) Inject 18 Units subcutaneously three times daily before meals. And 9 units with snacks. Per Endocrine Dr. Conte - isosorbide mononitrate ER (IMDUR) 60 mg 24 hr tablet Take 1 tablet by mouth once daily. Per [facility] - JARDIANCE 10 mg tablet Take 1 tablet by mouth every afternoon. - Insulin Strang, Disposable, 31 gauge x 1/4 ndle USE ONE PEN NEEDLE PER DOSE 4 times a day, Dx E11.3299 on insulin - clotrimazole (LOTRIMIN) 1 % cream - aspirin 81 mg cap Take 1 tablet by mouth once daily. - fluticasone (FLONASE) 50 mcg/actuation nasal spray Use 2 Sprays in each nostril once daily. Rinse mouth after use. - clopidogrel (PLAVIX) 75 mg tablet Take 1 tablet by mouth once daily. Per [facility]. - nitroglycerin sublingual (NITROQUICK) 0.4 mg SL tablet DISSOLVE ONE TABLET UNDER THE TONGUE EVERY 5 MINUTES NEEDED FOR CARDIAC CHEST PAIN - blood sugar diagnostic (BLOOD GLUCOSE TEST) test strip Test blood sugar(s) 2-3 times daily. Dx: Other DM Code E11.3299 Insulin: Yes - Lancets lancets Test blood sugar(s) 2-3 times daily. Dx: Other DM Code E11.3299 Insulin: Yes - blood sugar diagnostic (FREESTYLE LITE STRIPS) test strip USE ONE STRIP TWICE DAILY TO CHECK BLOOD GLUCOSE - lancets (FREESTYLE LANCETS) 28 gauge Test blood sugar(s) 2 times daily. Dx: Uncontrolled Diabetes 250.02. Insulin: No - albuterol HFA (VENTOLIN HFA) (more content not included)... Normal [facility] BRIEF OP NOTon 07-30-2024 BRIEF OP NOT HNO ID: [id number] Author: PRISCILA TARANGO MD Service: General Surgery Author Type: Physician Type: Brief Op Note Filed: 07/30/2024 12:52 Note Text: BRIEF OPERATIVE NOTE SURGERY DATE: 07/30/2024 Incision/Procedure Start Time: 12:16 cecal intubation time: 12:29 Incision Close/Procedure End Time: 12:44 Surgeon(s)/Proceduralist(s) and [employer] Shearer(s): paulie Procedures: EGD with biopsies of antrum and GE junction Colonoscopy with polypectomies Anesthesia: MAC Findings: small hiatal hernia, irregular GE junction, hemorrhoids, right colon polyp sessile < 1 cm (clip applied for defect and bleeding) and rectal polyp sessile < 1 cm Estimated Blood Loss: minimal Specimens: mucosal biopsies of GE junction and antrum of stomach, right colon polyp - clip applied, rectal polyp Complications: None Closure Technique: Non-primary Preop Diagnosis: screening for colon cancer, cologard positive, acid reflux symptoms Postop Diagnosis: right colon and rectal polyp, hemorrhoids, small hiatal hernia, irregular GE junction Patient was accompanied to the next level of care by a licensed practitioner from the surgical team pending completion of this brief op note (or operative note) SIGNATURE: Priscila Tarango MD PATIENT NAME: Michael Youngblood DATE: July 30, 2024 TIME: 12:46 PM CSN: [id number] [facility] HISTORY PHYSICALon HISTORY PHYSICAL HNO ID: [id number] Author: PRISCILA TARANGO MD Service: General Surgery Author Type: Physician Type: H&P Filed: 07/30/2024 10:48 Note Text: HISTORY AND PHYSICAL Michael Christopher Rylie : 1975 REFERRING PHYSICIAN: Dave Abreu [address] [address] CHIEF COMPLAINT: Patient presents with: Consult: Colonoscopy consultation, positive Cologuard. HPI: Michael is a 49 year old male referred for endoscopy. Michael notes positive Cologuard test. Michael denies abdominal pain.. Michael denies diarrhea. Michael denies constipation. Michael denies a change in bowel habits. Michael denies melena. Michael notes bright red blood per rectum. Refers when he completed Cologuard he had strained for awhile to have BM and noted BRB on TP. Michael notes hemorrhoids. Michael notes heartburn. Takes omeprazole 20mg daily with good control. +increased gas/ feeling like burps are stuck in chest. Michael denies dysphagia. Michael denies a history of ulcers/ peptic ulcer disease. Notes family history of colon issues.-maternal uncle with colon cancer Michael has a hx of NSTEMI with 2 stent placements in 2020 and 2021. Most recent cardiac cath of 2022 showed [place] CAD with patent stents. Currently on 81mg ASA AND plavix. Last OV with [facility] 04/07/24. Last stress test 03/31/24 with no signs of ischemia or arrhythmias, EF of 59%. Denies CP, dizziness, palpitations, syncope, edema, recent hospitalizations Michael has not undergone prior endoscopy. CURRENT MEDICATIONS Current Outpatient Medications Medication Sig atorvastatin (LIPITOR) 40 mg tablet Take 1 tablet by mouth once daily. levothyroxine (LEVOXYL) 25 mcg tablet Take 1 tablet by mouth once daily. Take on empty stomach. For Thyroid JARDIANCE 10 mg tablet Take 1 tablet by mouth every afternoon. Insulin Strang, Disposable, 31 gauge x 10/31 ndle USE ONE PEN NEEDLE PER DOSE 4 times a day, Dx E11.3299 on insulin omeprazole (PRILOSEC) 20 mg capsule TAKE 1 CAPSULE BY MOUTH ONCE DAILY 30 MINUTES BEFORE BREAKFAST clotrimazole (LOTRIMIN) 1 % cream aspirin 81 mg cap Take 1 tablet by mouth once daily. DULoxetine (CYMBALTA) 30 mg capsule Take 1 capsule by mouth two times a day. lisinopril (ZESTRIL) 5 mg tablet Take 1 tablet by mouth once daily. Decreased by cardio 06/2023 due to low BP and dizziness insulin glargine (BASAGLAR KWIKPEN U-100 INSULIN) 100 unit/mL (3 mL) Inject 26 Units subcutaneously every morning. Per Endocrine, Dr. Conte insulin aspart U-100 (NOVOLOG FLEXPEN U-100 INSULIN) 100 unit/mL (3 mL) Inject 18 Units subcutaneously three times daily before meals. And 9 units with snacks. Per Endocrine Dr. Conte isosorbide mononitrate ER (IMDUR) 60 mg 24 hr tablet Take 1 tablet by mouth once daily. Per [facility] fluticasone (FLONASE) 50 mcg/actuation nasal spray Use 2 Sprays in each nostril once daily. Rinse mouth after use. clopidogrel (PLAVIX) 75 mg tablet Take 1 tablet by mouth once daily. Per [facility]. nitroglycerin sublingual (NITROQUICK) 0.4 mg SL tablet DISSOLVE ONE TABLET UNDER THE TONGUE EVERY 5 MINUTES NEEDED FOR CARDIAC CHEST PAIN blood sugar diagnostic (BLOOD GLUCOSE TEST) test strip Test blood sugar(s) 2-3 times daily. Dx: Other DM Code E11.3299 Insulin: Yes Lancets lancets Test blood sugar(s) 2-3 times daily. Dx: Other DM Code E11.3299 Insulin: Yes blood sugar diagnostic (FREESTYLE LITE STRIPS) test [...] sugar as directed. No current facility-administered medications for this visit. ALLERGIES: Patient has no known allergies. PAST MEDICAL HISTORY PAST MEDICAL HISTORY Diagnosis Date Allergic rhinitis 03/12/2013 Bilateral carotid artery stenosis 05/08/2021 US 04/2021: Right 0-19%, Left 20-40% Cataract of both eyes 01/09/2016 Chronic bilateral low back pain with bilateral sciatica 01/15/2011 Chronic pain of both shoulders 03/11/2009 Coronary artery disease due to lipid rich plaque 04/27/2021 Seeing [facility] Diabetic eye exam (HCC) 01/12/2022 Last done 01/11/22 [facility] Diabetic neuropathy (HCC) 12/12/2023 NIMESH (generalized anxiety disorder) 11/04/2019 GERD without esophagitis 11/04/2019 History of kidney stones 01/14/2013 Hypertension goal BP (blood pressure) < 140/90 05/10/2006 Kidney stones 2008 Marijuana use Mixed hyperlipidemia 03/29/2009 Obesity, Class II, BMI 35-39.9 Panic attack 11/14/2010 Plantar fasciitis, left 11/04/2019 S/P coronary artery stent placement 04/27/2021 2 stents 04/24/2021 Subclavian artery stenosis, right (HCC) 05/08/2021 US 04/2021: 50-99% Type 2 diabetes mellitus (more content not included)... Normal [facility] OPERATIVE NOon 07-30-2024 OPERATIVE NO HNO ID: [id number] Author: PRISCILA TARANGO MD Service: General Surgery Author Type: Physician Type: Operative Report Filed: 07/31/2024 08:07 Note Text: [facility] - Operative Report - MICHAEL Razo : 1975 AGE: 49. SEX: M PATIENT TYPE: O HOSP [facility] [place]: [facility] LOCATION: [facility] ATTENDING PHYSICIAN: Priscila Tarango MD CSN NUMBER: [id number] DATE OF SURGERY/PROCEDURE: 07/30/2024 INCISION/PROCEDURE START TIME: 1216 INCISION CLOSE/PROCEDURE END TIME: 1244 PREOPERATIVE DIAGNOSIS: Cologuard positive and acid reflux. POSTOPERATIVE DIAGNOSIS: Small hiatal hernia, irregular GE junction, and right colon polyp, and rectal colon polyp. SURGEON: Priscila Tarango MD FILTER CLOTH MAKER: No Additional Staff SURGERY/PROCEDURE: Esophagogastroduodenoscopy with biopsies and colonoscopy with polypectomies. ANESTHESIA: MAC. LOCATION: [facility]. INDICATIONS: Michael Youngblood is a 49-year-old male, who presents for screening for colon cancer via colonoscopy and esophagogastroduodenoscopy for findings of Cologuard positivity and he does have symptoms of acid reflux. He has had no previous colonoscopy. He has been counseled on the risks of procedure including, but not limited to infection, bleeding, perforation of GI tract, inability to complete procedure, injury to any internal organs, etc. Patient understands and agrees to proceed. DESCRIPTION OF PROCEDURE: After informed consent was given, the patient was brought to the endoscopy suite. Appropriate time-out protocol was followed. He was placed in the left lateral decubitus position. A bite block was placed. Then, he was given IV anesthesia by the anesthesia provider. The upper endoscope was lubricated, carefully inserted in the patient's mouth, and advanced into the esophagus. It was then advanced into the stomach, then past the pylorus, then into the first and second portion of the duodenum. There was no evidence of any masses, polyps, or lesions noted in the duodenum. The endoscope was retracted back into the stomach. There was minimal erythematous radial streaking of the antrum of stomach. Mucosal biopsies of the antrum of stomach were taken using cold grasper forceps. This was done for H pylori and histology. Retroflexed view into the fundus of the body stomach revealed no evidence of any masses, polyps, or lesions in the stomach. The patient did have a very small hiatal hernia. The endoscope was retracted back into the esophagus. The patient had an irregular GE junction. Mucosal biopsies of the GE junction were taken using cold grasper forceps. The remainder of the esophagus appeared normal. The endoscope was removed intact. The patient tolerated this portion of the procedure well. The next procedure performed was colonoscopy. The colonoscope was lubricated and carefully inserted in the patient's anus and advanced into the rectum. It was then advanced into the sigmoid colon, then the left colon, past splenic flexure into transverse colon, past hepatic flexure into the right colon, then into the cecum. The cecum was identified by confluence of teniae coli, identification of the ileocecal valve, appendiceal orifice, and external palpation. At this level, the colonoscope was slowly retracted back and entire colonic mucosal surface was examined. The colon cleansing preparation was adequate. In the right colon, there appeared to be less than 1 cm sessile polyp. It was completely removed using cold snare device, but because of the size of the defect and given that the patient was on chronic antithrombotic therapy n, a clip was applied to close the defect. There was no evidence of any masses, polyps, or lesions in the transverse colon. There was no evidence of any masses, polyps or lesions in the left colon. There was no evidence of any masses, polyps or lesions in the sigmoid colon. In the proximal rectum, there was a sessile, less than 1 cm polyp which was completely removed using cold snare device. Retroflexed view in the rectum revealed hemorrhoidal changes, but no active inflammation or bleeding. The endoscope was removed intact. Digital examination of the anal canal revealed no palpable masses. The patient was brought to recovery room in stable condition. ESTIMATED BLOOD LOSS: Minimal. SPECIMENS: Mucosal biopsy, GE junction, antrum of stomach, right colon polyp, and rectal polyp. COMPLICATIONS: None. RECOMMENDATIONS: Surveillance colonoscopy in 5 years for history of colon polyps. Priscila Tarango MD [id number] /[id number] Normal [facility] SURGICAL PATHOLOGYon CASE REPORT Normal [facility] Comment on above: Order Comment: Speci men Type: TISSUE SPECIMEN Ordering Facility: [facility] Address: [address] [place] [address] Result Comment: Surg ica Pathology Report Case: [id number] Authorizing Provider: Priscila Tarango MD Collected: 07/30/2024 12:18 PM Ordering Location: SURGERY Received: 07/30/2024 01:10 PM Pathologist: Regine Rider MD Specimens: A) - Stomach, Antrum, Biopsy B) - Esophagogastric Junction, Biopsy C) - Colon, Ascending Polyp D) - Rectum, Polyp Performed By: #### S #### [facility] CLIA [id number] [address] [place] [address] DIAGNOSIS COMMENT Normal [facility] Comment on above: Order Comment: Speci shailesh Type: TISSUE SPECIMEN Ordering Facility: [facility] Address: [address] [place] [address] Result Comment: In p art D multiple additional deeper levels have been examined. Laboratory Developed Test (LDT) Disclaimer: Performance characteristics of immunohistochemical, immunofluorescent and chromogenic in-situ hybridization tests have been determined by the performing laboratory within [facility]???s [facility] Pathology and Laboratory Medicine Department ([facility], [facility], [facility], [facility], [facility], [facility], or [facility]) in a manner consistent with CLIA requirements. One or more of these tests have not been cleared or approved by the FDA. [facility] is regulated under CLIA as qualified to perform high-complexity testing. These tests are used for clinical purposes. They should not be regarded as investigational or for research. Positive and negative controls stain appropriately. Performed By: #### S #### [facility] CLIA [id number] [address] [place] [address] FINAL DIAGNOSIS Normal [facility] Comment on above: Order Comment: Speci men Type: TISSUE SPECIMEN Ordering Facility: [facility] Address: [address] [place] [address] Result Comment: A. S tomach antrum, biopsy: -- Antral-type gastric mucosa with mild to moderate chronic inactive gastritis. -- Immunohistochemical stain for H. pylori negative for microorganisms. B. Esophagogastric junction, biopsy: -- Squamocolumnar junction with no significant histopathologic abnormalities, negative for intestinal metaplasia. C. Ascending colon polyp, polypectomy: -- Tubular adenoma. D. Rectum polyp, polypectomy: -- Polypoid fragment of colonic mucosa with hyperplastic change, see comment. Performed By: #### S #### [facility] CLIA [id number] [address] [place] [address] FINAL PERFORMING LAB Normal [facility] Comment on above: Order Comment: Speci men Type: TISSUE SPECIMEN Ordering Facility: [facility] Address: [address] [place] [address] Result Comment: Diag nostic interpretation performed at [facility], [address] [place] [address] CLIA# [id number] Assistant Center Manager: Charbel Hsu M.D. Performed By: #### S #### [facility] CLIA [id number] [address] [place] [address] GROSS DESCRIPTION Normal [facility] Comment on above: Order Comment: Speci men Type: TISSUE SPECIMEN Ordering Facility: [facility] Address: [address], [place] [address] Result Comment: A. S tomach, Antrum, Biopsy Received in formalin labeled stomach antrum biopsy are 2 irregular partida soft tissue fragments aggregating to 0.3 x 0.3 x 0.2 cm. The specimen is submitted entirely in A1. B. Esophagogastric Junction, Biopsy Received in formalin labeled esophagogastric junction biopsy are 2 irregular partida soft tissue fragments aggregating to 0.3 x 0.3 x 0.1 cm. The specimen is submitted entirely in B1. C. Colon, Ascending Polyp Received in formalin labeled ascending colon polyp is a irregular partida soft tissue fragment measuring 0.6 x 0.3 x 0.3 cm. The specimen is submitted entirely in C1. D. Rectum, Polyp Received in formalin labeled rectum polyp is a irregular partida soft tissue fragment measuring 0.2 x 0.2 x 0.2 cm. The specimen is submitted entirely in D1. Gross examination performed at [facility], [address] [place] [address] CLIA#[id number] [facility] July 31, 2024 9:14 AM Performed By: #### S #### [facility] CLIA [id number] [address] [place] [address] [facility] NURSING PROGon 07-23-2024 NURSING PROG HNO ID: [id number] Author: NATI DIAZ, GRISELDA Service: ? Author Type: Registered Nurse Type: Nursing Progress Note Filed: 07/23/2024 14:59 Note Text: Pre-Procedure Checklist Michael Youngblood [phone] (home) 1975 49 year old Body mass index is 36.59 kg/m?. Allergies: No Known Allergies Procedure: EGD/Colonoscopy Date of Procedure: 07/30/2024 Smoke: No Alcohol: No Street Drugs: Yes Diabetic: Yes Insulin: Yes Problems with Anesthesia (Self or Family?) No School Psychologist Assistant: Dr. Johan Murphy [facility] Saw manager fiber in the last 6 months? No Recent EKG/Cardiac Testing: Yes Chest pain in the last 6 months (<6 months cardiac clearance needed): Yes History of: Heart Attack/Stroke/Blood Clot?: Heart Attack with stents placed in 2020 and 2021 Shortness of Breath: No Asthma: No Inhalers: Yes Any Outstanding Consults?: Yes If yes, list: Additional Notes: Pt was seen at [facility] in March 2024 for chest pain. During screening, pt denied chest pain, and said that it was for indigestion and denied any chest pain. Patient aware that cardiac clearance is needed. Pt has not been to [facility] in over a year. Normal [facility] CNOVon 07-22-2024 CNOV Office Visit (GENSWS ) MICHAEL YOUNGBLOOD ([id number]) 1975 M Date Time Provider Department 07/22/24 11:30 AM FANNY REYNA During your visit today, we recorded the following information about you: Temperature Pulse Blood pressure Weight 97.1 degrees 70/minute 117/80 116.8 kg Height 1.778 m Fanny Reyna APRN.CNP 07/22/2024 12:05 PM Signed HISTORY AND PHYSICAL Michael Youngblood : 1975 REFERRING PHYSICIAN: Dave Abreu [address] [address] CHIEF COMPLAINT: Patient presents with: Consult: Colonoscopy consultation, positive Cologuard. HPI: Michael is a 49 year old male referred for endoscopy. Michael notes positive Cologuard test. Michael denies abdominal pain.. Michael denies diarrhea. Michael denies constipation. Michael denies a change in bowel habits. Michael denies melena. Michael notes bright red blood per rectum. Refers when he completed Cologuard he had strained for awhile to have BM and noted BRB on TP. Michael notes hemorrhoids. Michael notes heartburn. Takes omeprazole 20mg daily with good control. +increased gas/ feeling like burps are stuck in chest. Michael denies dysphagia. Michael denies a history of ulcers/ peptic ulcer disease. Notes family history of colon issues.-maternal uncle with colon cancer Michael has a hx of NSTEMI with 2 stent placements in 2020 and 2021. Most recent cardiac cath of 2022 showed [place] CAD with patent stents. Currently on 81mg ASA AND plavix. Last OV with [facility] 04/07/24. Last stress test 03/31/24 with no signs of ischemia or arrhythmias, EF of 59%. Denies CP, dizziness, palpitations, syncope, edema, recent hospitalizations Michael has not undergone prior endoscopy. Current Outpatient Medications Medication Sig atorvastatin (LIPITOR) 40 mg tablet Take 1 tablet by mouth once daily. levothyroxine (LEVOXYL) 25 mcg tablet Take 1 tablet by mouth once daily. Take on empty stomach. For Thyroid JARDIANCE 10 mg tablet Take 1 tablet by mouth every afternoon. Insulin Strang, Disposable, 31 gauge x 1/4 ndle USE ONE PEN NEEDLE PER DOSE 4 times a day, Dx E11.3299 on insulin omeprazole (PRILOSEC) 20 mg capsule TAKE 1 CAPSULE BY MOUTH ONCE DAILY 30 MINUTES BEFORE BREAKFAST clotrimazole (LOTRIMIN) 1 % cream aspirin 81 mg cap Take 1 tablet by mouth once daily. DULoxetine (CYMBALTA) 30 mg capsule Take 1 capsule by mouth two times a day. lisinopril (ZESTRIL) 5 mg tablet Take 1 tablet by mouth once daily. Decreased by cardio 06/2023 due to low BP and dizziness insulin glargine (BASAGLAR KWIKPEN U-100 INSULIN) 100 unit/mL (3 mL) Inject 26 Units subcutaneously every morning. Per Endocrine, Dr. Conte insulin aspart U-100 (NOVOLOG FLEXPEN U-100 INSULIN) 100 unit/mL (3 mL) Inject 18 Units subcutaneously three times daily before meals. And 9 units with snacks. Per Endocrine Dr. Conte isosorbide mononitrate ER (IMDUR) 60 mg 24 hr tablet Take 1 tablet by mouth once daily. Per [facility] fluticasone (FLONASE) 50 mcg/actuation nasal spray Use 2 Sprays in each nostril once daily. Rinse mouth after use. clopidogrel (PLAVIX) 75 mg tablet Take 1 tablet by mouth once daily. Per [facility]. nitroglycerin sublingual (NITROQUICK) 0.4 mg SL tablet DISSOLVE ONE TABLET UNDER THE TONGUE EVERY 5 MINUTES NEEDED FOR CARDIAC CHEST PAIN blood sugar diagnostic (BLOOD GLUCOSE TEST) test strip Test blood sugar(s) 2-3 times daily. Dx: Other DM Code E11.3299 Insulin: Yes Lancets lancets Test blood sugar(s) 2-3 times daily. Dx: Other DM Code E11.3299 Insulin: Yes blood sugar diagnostic (FREESTYLE LITE STRIPS) test [...] sugar as directed. No current facility-administered medications for this visit. ALLERGIES: Patient has no known allergies. PAST MEDICAL HISTORY Diagnosis Date Allergic rhinitis 03/12/2013 Bilateral carotid artery stenosis 05/08/2021 US 04/2021: Right 0-19%, Left 20-40% Cataract of both eyes 01/09/2016 Chronic bilateral low back pain with bilateral sciatica 01/15/2011 Chronic pain of both shoulders 03/11/2009 Coronary artery disease due to lipid rich plaque 04/27/2021 Seeing [facility] Diabetic eye exam (HCC) 01/12/2022 Last done 01/11/22 [facility] Diabetic neuropathy (HCC) 12/12/2023 NIMESH (generalized anxiety disorder) 11/04/2019 GERD without esophagitis 11/04/2019 History of kidney stones 01/14/2013 Hypertension goal BP (blood pressure) < 140/90 05/10/2006 Kidney stones 2007 Marijuana use Mixed hyperlipidemia 03/29/2009 O (more content not included)... Normal [facility] Kiran 07-21-2024 [place] [facility] MICHAEL YOUNGBLOOD ([id number]) 1975 M Date Time Provider Department 07/21/24 DAVE ABREU During your visit today, we recorded the following information about you: Dave Abreu APRN.MORTGAGE ANALYST 07/21/2024 10:50 AM Signed Please let patient know his cologuard is positive which means abnormal cells were detected. I have placed an order for him to see general surgery for colonoscopy. Jyothi Hodge MA 07/21/2024 10:58 AM Signed Pt notified. Transferred to [facility] to set up appt. Jyothi Hodge MA Allergies As of Date: 07/21/2024 (No Known Allergies) Date Reviewed: 06/30/2024 Reviewed by: Leanne Moore MA - Fully Assessed Reason for Visit: Results [95] Primary Visit Diagnosis:Positive colorectal cancer screening using Cologuard test [R19.5] Order(s):CONSULT TO GENERAL SURGERY [9011] Order #: [id number]: 1 FUTURE Prescriptions as of 07/21/2024 - atorvastatin (LIPITOR) 40 mg tablet Take 1 tablet by mouth once daily. - levothyroxine (LEVOXYL) 25 mcg tablet Take 1 tablet by mouth once daily. Take on empty stomach. For Thyroid - JARDIANCE 10 mg tablet Take 1 tablet by mouth every afternoon. - Insulin Strang, Disposable, 31 gauge x 1/4 ndle USE ONE PEN NEEDLE PER DOSE 4 times a day, Dx E11.3299 on insulin - omeprazole (PRILOSEC) 20 mg capsule TAKE 1 CAPSULE BY MOUTH ONCE DAILY 30 MINUTES BEFORE BREAKFAST - clotrimazole (LOTRIMIN) 1 % cream - aspirin 81 mg cap Take 1 tablet by mouth once daily. - DULoxetine (CYMBALTA) 30 mg capsule Take 1 capsule by mouth two times a day. - lisinopril (ZESTRIL) 5 mg tablet Take 1 tablet by mouth once daily. Decreased by cardio 06/2023 due to low BP and dizziness - insulin glargine (BASAGLAR KWIKPEN U-100 INSULIN) 100 unit/mL (3 mL) Inject 26 Units subcutaneously every morning. Per Endocrine, Dr. Conte - insulin aspart U-100 (NOVOLOG FLEXPEN U-100 INSULIN) 100 unit/mL (3 mL) Inject 18 Units subcutaneously three times daily before meals. And 9 units with snacks. Per Endocrine Dr. Conte - isosorbide mononitrate ER (IMDUR) 60 mg 24 hr tablet Take 1 tablet by mouth once daily. Per [facility] - fluticasone (FLONASE) 50 mcg/actuation nasal spray Use 2 Sprays in each nostril once daily. Rinse mouth after use. - clopidogrel (PLAVIX) 75 mg tablet Take 1 tablet by mouth once daily. Per [facility]. - nitroglycerin sublingual (NITROQUICK) 0.4 mg SL tablet DISSOLVE ONE TABLET UNDER THE TONGUE EVERY 5 MINUTES NEEDED FOR CARDIAC CHEST PAIN - blood sugar diagnostic (BLOOD GLUCOSE TEST) test strip Test blood sugar(s) 2-3 times daily. Dx: Other DM Code E11.3299 Insulin: Yes - Lancets lancets Test blood sugar(s) 2-3 times daily. Dx: Other DM Code E11.3299 Insulin: Yes - blood sugar diagnostic (FREESTYLE LITE STRIPS) test strip USE ONE STRIP TWICE DAILY TO CHECK BLOOD GLUCOSE - lancets (FREESTYLE LANCETS) 28 gauge Test blood sugar(s) 2 times daily. Dx: Uncontrolled Diabetes 250.02. Insulin: No - albuterol HFA (VENTOLIN HFA) 90 mcg/actuation inhaler Inhale 2 Puffs as instructed every 4 hours as needed. - Blood-Glucose Meter (FREESTYLE LITE METER) monitoring kit Use to test blood sugar as directed. Problem List As Of Date 07/21/2024 Noted Resolved Hypertension goal BP (blood pressure) < 140/90 *05/10/2006 Obesity, unspecified [E66.9] 05/10/2006 05/06/2017 Chronic pain of both shoulders [M25.511, G89.29*03/11/2009 Type II or unspecified type diabetes mellitus w*03/29/2009 09/29/2013 Mixed hyperlipidemia [E78.2] 03/29/2009 Carpal tunnel syndrome, bilateral [G56.03] 09/01/2010 05/06/2017 Unspecified gastritis and gastroduodenitis with*09/07/2010 05/06/2017 Panic attack [F41.0] 11/14/2010 Chronic bilateral low back pain with bilateral *01/15/2011 Diabetes mellitus type 2, uncontrolled, without*12/11/2012 05/06/2017 Right flank pain [R10.9] 01/14/2013 05/06/2017 Hematuria [R31.9] 01/14/2013 05/06/2017 History of kidney stones [Z87.442] 01/14/2013 Obesity [E66.9] 01/14/2013 05/06/2017 Allergic rhinitis [J30.9] 03/12/2013 Uncontrolled type 2 diabetes mellitus with comp*09/29/2013 05/06/2017 Type 2 diabetes mellitus with mild nonprolifera*01/09/2016 Cataract of both eyes [H26.9] 01/09/2016 Obesity, Class II, BMI 35-39.9 [E66.9] NIMESH (generalized anxiety disorder) [F41.1] 11/04/2019 GERD without esophagitis [K21.9] 11/04/2019 Marijuana use [F12.90] Neuropathy [G62.9] 11/04/2019 12/12/2023 Well adult exam [Z00.00] 11/04/2019 Plantar fasciitis, left [M72.2] 11/04/2019 12/12/2023 Medication management [Z79.899] 04/21/2021 Coronary artery disease due to lipid rich plaqu*04/27/2021 S/P coronary artery stent placement [Z95.5] 04/27/2021 Acquired hypothyroidism [E03.9] 05/01/2021 Bilateral carotid artery stenosis [I65.23] 05/08/2021 Subclavian artery stenosis, right (HCC) [I77.1] 05/08/2021 D (more content not included)... Normal [facility] CBC W Auto Differential pane l (Bld)on 07-16-2024 Basophils (Bld) [#/Vol] 0.09 10*3/uL Normal <0.11 [facility] Comment on above: Order Comment: Speci men Type: URINE SPECIMEN Ordering Facility: [facility] Address: [address] [place] [address] Performed By: #### 2 4356-8 #### [facility] CLIA [id number] [address] [place] [address] [place] Basophils/100 WBC (Bld) 0.8 % Normal [facility] Comment on above: Order Comment: Speci men Type: URINE SPECIMEN Ordering Facility: [facility] Address: [address] [place] [address] Performed By: #### 2 4356-8 #### [facility] CLIA [id number] [address] [place] [address] [place] Differential cell count method Nom (Bld) Auto Normal [facility] Comment on above: Order Comment: Speci men Type: URINE SPECIMEN Ordering Facility: [facility] Address: [address] [place] [address] Performed By: #### 2 4356-8 #### [facility] CLIA [id number] [address] [place] [address] [place] Eosinophils (Bld) [#/Vol] 0.62 10*3/uL High <0.46 [facility] Comment on above: Order Comment: Speci men Type: URINE SPECIMEN Ordering Facility: [facility] Address: [address] [place] [address] Performed By: #### 2 4356-8 #### [facility] CLIA [id number] [address] [place] [address] [place] Eosinophils/100 WBC (Bld) 5.6 % Normal [facility] Comment on above: Order Comment: Speci men Type: URINE SPECIMEN Ordering Facility: [facility] Address: [address] [place] [address] Performed By: #### 2 4356-8 #### [facility] CLIA [id number] [address] [place] [address] [place] Erythrocyte distribution width (RBC) [Ratio] 12.9 % Normal 11.5-15.0 [facility] Comment on above: Order Comment: Speci men Type: URINE SPECIMEN Ordering Facility: [facility] Address: [address] [place] [address] Performed By: #### 2 4356-8 #### [facility] CLIA [id number] [address] [place] [address] [place] Hematocrit (Bld) [Volume fraction] 47.2 % Normal 39.0-51.0 [facility] Comment on above: Order Comment: Speci men Type: URINE SPECIMEN Ordering Facility: [facility] Address: [address] [place] [address] Performed By: #### 2 4356-8 #### [facility] CLIA [id number] [address] [place] [address] [place] Hemoglobin (Bld) [Mass/Vol] 15.4 g/dL Normal 13.0-17.0 [facility] Comment on above: Order Comment: Speci men Type: URINE SPECIMEN Ordering Facility: [facility] Address: [address] [place] [address] Performed By: #### 2 4356-8 #### [facility] CLIA [id number] [address] [place] [address] [place] Immature granulocytes (Bld) [#/Vol] 0.06 10*3/uL Normal <0.10 [facility] Comment on above: Order Comment: Speci men Type: URINE SPECIMEN Ordering Facility: [facility] Address: [address] [place] [address] Performed By: #### 2 4356-8 #### [facility] CLIA [id number] [address] [place] [address] [place] Immature granulocytes/100 WBC (Bld) 0.5 % Normal [facility] Comment on above: Order Comment: Speci men Type: URINE SPECIMEN Ordering Facility: [facility] Address: [address] [place] [address] Performed By: #### 2 4356-8 #### [facility] CLIA [id number] [address] [place] [address] [place] Lymphocytes (Bld) [#/Vol] 2.86 10*3/uL Normal 1.00-4.00 [facility] Comment on above: Order Comment: Speci men Type: URINE SPECIMEN Ordering Facility: [facility] Address: [address] [place] [address] Performed By: #### 2 4356-8 #### [facility] CLIA [id number] [address] [place] [address] [place] Lymphocytes/100 WBC (Bld) 25.9 % Normal [facility] Comment on above: Order Comment: Speci men Type: URINE SPECIMEN Ordering Facility: [facility] Address: [address] [place] [address] Performed By: #### 2 4356-8 #### [facility] CLIA [id number] [address] [place] [address] [place] MCH (RBC) [Entitic mass] 30.8 pg Normal 26.0-34.0 [facility] Comment on above: Order Comment: Speci men Type: URINE SPECIMEN Ordering Facility: [facility] Address: [address] [place] [address] Performed By: #### 2 4356-8 #### [facility] CLIA [id number] [address] [place] [address] [place] MCHC (RBC) [Mass/Vol] 32.6 g/dL Normal 30.5-36.0 [facility] Comment on above: Order Comment: Speci men Type: URINE SPECIMEN Ordering Facility: [facility] Address: [address] [place] [address] Performed By: #### 2 4356-8 #### [facility] CLIA [id number] [address] [place] [address] [place] MCV (RBC) [Entitic vol] 94.4 fL Normal 80.0-100.0 [facility] Comment on above: Order Comment: Speci men Type: URINE SPECIMEN Ordering Facility: [facility] Address: [address] [place] [address] Performed By: #### 2 4356-8 #### [facility] CLIA [id number] [address] [place] [address] [place] Monocytes (Bld) [#/Vol] 0.95 10*3/uL High <0.87 [facility] Comment on above: Order Comment: Speci men Type: URINE SPECIMEN Ordering Facility: [facility] Address: [address] [place] [address] Performed By: #### 2 4356-8 #### [facility] CLIA [id number] [address] [place] [address] [place] Monocytes/100 WBC (Bld) 8.6 % Normal [facility] Comment on above: Order Comment: Speci men Type: URINE SPECIMEN Ordering Facility: [facility] Address: [address] [place] [address] Performed By: #### 2 4356-8 #### [facility] CLIA [id number] [address] [place] [address] [place] Neutrophils (Bld) [#/Vol] 6.45 10*3/uL Normal 1.45-7.50 [facility] Comment on above: Order Comment: Speci men Type: URINE SPECIMEN Ordering Facility: [facility] Address: [address] [place] [address] Performed By: #### 2 4356-8 #### [facility] CLIA [id number] [address] [place] [address] [place] Neutrophils/100 WBC (Bld) 58.6 % Normal [facility] Comment on above: Order Comment: Speci men Type: URINE SPECIMEN Ordering Facility: [facility] Address: [address] [place] [address] Performed By: #### 2 4356-8 #### [facility] CLIA [id number] [address] [place] [address] [place] Nucleated RBC (Bld) [#/Vol] 10*3/uL Normal <0.01 [facility] Comment on above: Order Comment: Speci men Type: URINE SPECIMEN Ordering Facility: [facility] Address: [address] [place] [address] Performed By: #### 2 4356-8 #### [facility] CLIA [id number] [address] [place] [address] [place] Nucleated RBC/100 WBC (Bld) [Ratio] 0.0 /100 WBC Normal [facility] Comment on above: Order Comment: Speci men Type: URINE SPECIMEN Ordering Facility: [facility] Address: [address] [place] [address] Performed By: #### 2 4356-8 #### [facility] CLIA [id number] [address] [place] [address] [place] Platelet mean volume (Bld) [Entitic vol] 11.5 fL Normal 9.0-12.7 [facility] Comment on above: Order Comment: Speci men Type: URINE SPECIMEN Ordering Facility: [facility] Address: [address] [place] [address] Performed By: #### 2 4356-8 #### [facility] CLIA [id number] [address] [place] [address] [place] Platelets (Bld) [#/Vol] 279 10*3/uL Normal 150-400 [facility] Comment on above: Order Comment: Speci men Type: URINE SPECIMEN Ordering Facility: [facility] Address: [address] [place] [address] Performed By: #### 2 4356-8 #### [facility] CLIA [id number] [address] [place] [address] [place] RBC (Bld) [#/Vol] 5.00 10*6/uL Normal 4.20-6.00 [facility] Comment on above: Order Comment: Speci men Type: URINE SPECIMEN Ordering Facility: [facility] Address: [address] [place] [address] Performed By: #### 2 4356-8 #### [facility] CLIA [id number] [address] [place] [address] [place] WBC (Bld) [#/Vol] 11.03 10*3/uL High 3.70-11.[address] [facility] Comment on above: Order Comment: Speci men Type: URINE SPECIMEN Ordering Facility: [facility] Address: [address] [place] [address] Performed By: #### 2 4356-8 #### [facility] CLIA [id number] [address] [place] [address] OF [facility] 07-16-2024 CNPN Telephone (INTMWS) MICHAEL YOUNGBLOOD ([id number]) 1975 M Date Time Provider Department 07/16/24 DAVE ABREU INTWS During your visit today, we recorded the following information about you: Dave Abreu APRN.MORTGAGE ANALYST 07/16/2024 7:12 PM Signed Please let patient know his WBC count is back to normal. Lilian Choe MA 07/16/2024 7:18 PM Signed Pt informed Lilian Choe MA Allergies As of Date: 07/16/2024 (No Known Allergies) Date Reviewed: 06/30/2024 Reviewed by: Leanne Moore MA - Fully Assessed Reason for Visit: Results [95] Prescriptions as of 07/16/2024 - atorvastatin (LIPITOR) 40 mg tablet Take 1 tablet by mouth once daily. - levothyroxine (LEVOXYL) 25 mcg tablet Take 1 tablet by mouth once daily. Take on empty stomach. For Thyroid - JARDIANCE 10 mg tablet Take 1 tablet by mouth every afternoon. - Insulin Strang, Disposable, 31 gauge x 10/31 ndle USE ONE PEN NEEDLE PER DOSE 4 times a day, Dx E11.3299 on insulin - omeprazole (PRILOSEC) 20 mg capsule TAKE 1 CAPSULE BY MOUTH ONCE DAILY 30 MINUTES BEFORE BREAKFAST - clotrimazole (LOTRIMIN) 1 % cream - aspirin 81 mg cap Take 1 tablet by mouth once daily. - DULoxetine (CYMBALTA) 30 mg capsule Take 1 capsule by mouth two times a day. - lisinopril (ZESTRIL) 5 mg tablet Take 1 tablet by mouth once daily. Decreased by cardio 06/2023 due to low BP and dizziness - insulin glargine (BASAGLAR KWIKPEN U-100 INSULIN) 100 unit/mL (3 mL) Inject 26 Units subcutaneously every morning. Per Endocrine, Dr. Conte - insulin aspart U-100 (NOVOLOG FLEXPEN U-100 INSULIN) 100 unit/mL (3 mL) Inject 18 Units subcutaneously three times daily before meals. And 9 units with snacks. Per Endocrine Dr. Conte - isosorbide mononitrate ER (IMDUR) 60 mg 24 hr tablet Take 1 tablet by mouth once daily. Per [facility] - fluticasone (FLONASE) 50 mcg/actuation nasal spray Use 2 Sprays in each nostril once daily. Rinse mouth after use. - clopidogrel (PLAVIX) 75 mg tablet Take 1 tablet by mouth once daily. Per [facility]. - nitroglycerin sublingual (NITROQUICK) 0.4 mg SL tablet DISSOLVE ONE TABLET UNDER THE TONGUE EVERY 5 MINUTES NEEDED FOR CARDIAC CHEST PAIN - blood sugar diagnostic (BLOOD GLUCOSE TEST) test strip Test blood sugar(s) 2-3 times daily. Dx: Other DM Code E11.3299 Insulin: Yes - Lancets lancets Test blood sugar(s) 2-3 times daily. Dx: Other DM Code E11.3299 Insulin: Yes - blood sugar diagnostic (FREESTYLE LITE STRIPS) test strip USE ONE STRIP TWICE DAILY TO CHECK BLOOD GLUCOSE - lancets (FREESTYLE LANCETS) 28 gauge Test blood sugar(s) 2 times daily. Dx: Uncontrolled Diabetes 250.02. Insulin: No - albuterol HFA (VENTOLIN HFA) 90 mcg/actuation inhaler Inhale 2 Puffs as instructed every 4 hours as needed. - Blood-Glucose Meter (FREESTYLE LITE METER) monitoring kit Use to test blood sugar as directed. Problem List As Of Date 07/16/2024 Noted Resolved Hypertension goal BP (blood pressure) < 140/90 *05/10/2006 Obesity, unspecified [E66.9] 05/10/2006 05/06/2017 Chronic pain of both shoulders [M25.511, G89.29*03/11/2009 Type II or unspecified type diabetes mellitus w*03/29/2009 09/29/2013 Mixed hyperlipidemia [E78.2] 03/29/2009 Carpal tunnel syndrome, bilateral [G56.03] 09/01/2010 05/06/2017 Unspecified gastritis and gastroduodenitis with*09/07/2010 05/06/2017 Panic attack [F41.0] 11/14/2010 Chronic bilateral low back pain with bilateral *01/15/2011 Diabetes mellitus type 2, uncontrolled, without*12/11/2012 05/06/2017 Right flank pain [R10.9] 01/14/2013 05/06/2017 Hematuria [R31.9] 01/14/2013 05/06/2017 History of kidney stones [Z87.442] 01/14/2013 Obesity [E66.9] 01/14/2013 05/06/2017 Allergic rhinitis [J30.9] 03/12/2013 Uncontrolled type 2 diabetes mellitus with comp*09/29/2013 05/06/2017 Type 2 diabetes mellitus with mild nonprolifera*01/09/2016 Cataract of both eyes [H26.9] 01/09/2016 Obesity, Class II, BMI 35-39.9 [E66.9] NIMESH (generalized anxiety disorder) [F41.1] 11/04/2019 GERD without esophagitis [K21.9] 11/04/2019 Marijuana use [F12.90] Neuropathy [G62.9] 11/04/2019 12/12/2023 Well adult exam [Z00.00] 11/04/2019 Plantar fasciitis, left [M72.2] 11/04/2019 12/12/2023 Medication management [Z79.899] 04/21/2021 Coronary artery disease due to lipid rich plaqu*04/27/2021 S/P coronary artery stent placement [Z95.5] 04/27/2021 Acquired hypothyroidism [E03.9] 05/01/2021 Bilateral carotid artery stenosis [I65.23] 05/08/2021 Subclavian artery stenosis, right (HCC) [I77.1] 05/08/2021 Diabetic eye exam (HCC) [Z01.00, E11.9] 01/12/2022 History of non-ST elevation myocardial infarcti*09/03/2022 Abnormal weight gain [R63.5] 12/12/2023 12/12/2023 Diagnosed: 12/12/2023 ACS (acute coronary syndrome) (HCC) [I24.9] 12/12/2023 12/12/2023 Diagnosed: 12/12/2023 Bilateral arm weakness [R29.898] 12/12 (more content not included)... Normal [facility] CNOVon 06-30-2024 [facility] MICHAEL YOUNGBLOOD ([id number]) 1975 M Date Time Provider Department 06/30/24 12:00 PM [facility] During your visit today, we recorded the following information about you: Pulse Respiration Blood pressure Weight 57/minute 14/minute 154/89 117.9 kg Dave Abreu, INFECTION CONTROL MANAGER.MORTGAGE ANALYST 06/30/2024 11:58 AM Signed Chief Complaint Patient presents with: Follow Up Head Congestion HPI Michael Christopher Rylie is a 48 year old male who presents here today for Above Complaints.. Patient presents for head congestion, headache, occas dizziness x1 month. Patient reports symptoms have continued and are slightly worse. Past medical history, appointments, medications, allergies reviewed. Previous Medical History PAST MEDICAL HISTORY 03/12/2013: Allergic rhinitis 05/08/2021: Bilateral carotid artery stenosis Comment: US 04/2021: Right 0-19%, Left 20-40% 01/09/2016: Cataract of both eyes 01/15/2011: Chronic bilateral low back pain with bilateral sciatica 03/11/2009: Chronic pain of both shoulders 04/27/2021: Coronary artery disease due to lipid rich plaque Comment: Seeing [facility] 01/12/2022: Diabetic eye exam (HCC) Comment: Last done 01/11/22 [facility] 12/12/2023: Diabetic neuropathy (HCC) 11/04/2019: NIMESH (generalized anxiety disorder) 11/04/2019: GERD without esophagitis 01/14/2013: History of kidney stones 05/10/2006: Hypertension goal BP (blood pressure) < 140/90 2007: Kidney stones No date: Marijuana use 03/29/2009: Mixed hyperlipidemia No date: Obesity, Class II, BMI 35-39.9 11/14/2010: Panic attack 11/04/2019: Plantar fasciitis, left 04/27/2021: S/P coronary artery stent placement Comment: 2 stents 04/24/2021 05/08/2021: Subclavian artery stenosis, right ([facility]) Comment: 04/2021: 50-99% 01/09/2016: Type 2 diabetes mellitus with mild nonproliferative diabetic retinopathy without macular edema ([facility]) Comment: [facility] - . 11/04/2019: Well adult exam Comment: Last done: 11/04/2019 Previous Surgical History PAST SURGICAL HISTORY 08/29/2022: CC CORONARY STENT Comment: stent to LAD and Mid Circ 04/24/2021: CORONARY STENT INITIAL Comment: 2 stents placed 09/07/2010: EGD TRANSORAL BIOPSY SINGLE/MULTIPLE Comment: gastritis, diffuse, moderate 10/28/2001: LEFT HEART CATH,PERCUTANEOUS Comment: Cardiac cath, L heart No date: PAST SURGICAL HISTORY OF Comment: remote ?cystoscopy Family History FAMILY HISTORY Problem [...] on File Prior to Visit Medication Sig atorvastatin (LIPITOR) 40 mg tablet Take 1 tablet by mouth once daily. levothyroxine (LEVOXYL) 25 mcg tablet Take 1 tablet by mouth once daily. Take on empty stomach. For Thyroid JARDIANCE 10 mg tablet Take 1 tablet by mouth every afternoon. Insulin Strang, Disposable, 31 gauge x 1/4 ndle USE ONE PEN NEEDLE PER DOSE 4 times a day, Dx E11.3299 on insulin omeprazole (PRILOSEC) 20 mg capsule TAKE 1 CAPSULE BY MOUTH ONCE DAILY 30 MINUTES BEFORE BREAKFAST clotrimazole (LOTRIMIN) 1 % cream aspirin 81 mg cap Take 1 tablet by mouth once daily. DULoxetine (CYMBALTA) 30 mg capsule Take 1 capsule by mouth two times a day. lisinopril (ZESTRIL) 5 mg tablet Take 1 tablet by mouth once daily. Decreased by cardio 06/2023 due to low BP and dizziness insulin glargine (BASAGLAR KWIKPEN U-100 INSULIN) 100 unit/mL (3 mL) Inject 26 Units subcutaneously every morning. Per Endocrine, Dr. Conte insulin aspart U-100 (NOVOLOG FLEXPEN U-100 INSULIN) 100 unit/mL (3 mL) Inject 18 Units subcutaneously three times daily before meals. And 9 units with snacks. Per Endocrine Dr. Conte isosorbide mononitrate ER (IMDUR) 60 mg 24 hr tablet Take 1 tablet by mouth once daily. Per [facility] fluticasone (FLONASE) 50 mcg/actuation nasal spray Use 2 Sprays in each nostril once daily. Rinse mouth after use. clopidogrel (PLAVIX) 75 mg tablet Take 1 tablet by mouth once daily. Per [facility]. nitroglycerin sublingual (NITROQUICK) 0.4 mg SL tablet DISSOLVE ONE TABLET UNDER THE TONGUE EVERY 5 MINUTES NEEDED FOR CARDIAC CHEST PAIN blood sugar diagnostic (BLOOD GLUCOSE TEST) test strip Test blood sugar(s) 2-3 times daily. Dx: Other DM Code E11.3299 Insulin: Yes Lancets lancets Test blood sugar(s) 2-3 times daily. Dx: Other DM Code E11.3299 Insuli (more content not included)... [facility] MICHAEL YOUNGBLOOD ([id number]) 1975 M Date Time Provider Department 06/25/24 DAVE ABREU During your visit today, we recorded the following information about you: Dave Abreu APRN.MORTGAGE ANALYST 06/25/2024 4:35 PM Signed Please let patient know his WBC count continues to be elevated. Is he still feeling unwell? Leanne Moore MA 06/26/2024 12:55 PM Signed Pt notified and states he is still feeling sick. Reports that he has had a cough, chest and head congestion for about 2 weeks Please advise MASHA Cramer Danielle, APRN.MORTGAGE ANALYST 06/26/2024 4:19 PM Signed Would recommend appt, can be virtual to address symptoms. Karmen Geiger RN 06/30/2024 9:18 AM Signed Pt called and is notified of providers results and instructions. Pt voices understanding. Pt scheduled today with Dave Abreu [employer] CENTRE MANAGER at 1200. Karmen Geiger RN Allergies As of Date: 06/25/2024 (No Known Allergies) Date Reviewed: 06/16/2024 Reviewed by: Leanne Moore MA - Fully Assessed Reason for Visit: Results [95] Prescriptions as of 06/30/2024 - atorvastatin (LIPITOR) 40 mg tablet Take 1 tablet by mouth once daily. - levothyroxine (LEVOXYL) 25 mcg tablet Take 1 tablet by mouth once daily. Take on empty stomach. For Thyroid - JARDIANCE 10 mg tablet Take 1 tablet by mouth every afternoon. - Insulin Strang, Disposable, 31 gauge x 10/31 ndle USE ONE PEN NEEDLE PER DOSE 4 times a day, Dx E11.3299 on insulin - omeprazole (PRILOSEC) 20 mg capsule TAKE 1 CAPSULE BY MOUTH ONCE DAILY 30 MINUTES BEFORE BREAKFAST - clotrimazole (LOTRIMIN) 1 % cream - aspirin 81 mg cap Take 1 tablet by mouth once daily. - DULoxetine (CYMBALTA) 30 mg capsule Take 1 capsule by mouth two times a day. - lisinopril (ZESTRIL) 5 mg tablet Take 1 tablet by mouth once daily. Decreased by cardio 06/2023 due to low BP and dizziness - insulin glargine (BASAGLAR KWIKPEN U-100 INSULIN) 100 unit/mL (3 mL) Inject 26 Units subcutaneously every morning. Per Endocrine, Dr. Conte - insulin aspart U-100 (NOVOLOG FLEXPEN U-100 INSULIN) 100 unit/mL (3 mL) Inject 18 Units subcutaneously three times daily before meals. And 9 units with snacks. Per Endocrine Dr. Conte - isosorbide mononitrate ER (IMDUR) 60 mg 24 hr tablet Take 1 tablet by mouth once daily. Per [facility] - fluticasone (FLONASE) 50 mcg/actuation nasal spray Use 2 Sprays in each nostril once daily. Rinse mouth after use. - clopidogrel (PLAVIX) 75 mg tablet Take 1 tablet by mouth once daily. Per [facility]. - nitroglycerin sublingual (NITROQUICK) 0.4 mg SL tablet DISSOLVE ONE TABLET UNDER THE TONGUE EVERY 5 MINUTES NEEDED FOR CARDIAC CHEST PAIN - blood sugar diagnostic (BLOOD GLUCOSE TEST) test strip Test blood sugar(s) 2-3 times daily. Dx: Other DM Code E11.3299 Insulin: Yes - Lancets lancets Test blood sugar(s) 2-3 times daily. Dx: Other DM Code E11.3299 Insulin: Yes - blood sugar diagnostic (FREESTYLE LITE STRIPS) test strip USE ONE STRIP TWICE DAILY TO CHECK BLOOD GLUCOSE - lancets (FREESTYLE LANCETS) 28 gauge Test blood sugar(s) 2 times daily. Dx: Uncontrolled Diabetes 250.02. Insulin: No - albuterol HFA (VENTOLIN HFA) 90 mcg/actuation inhaler Inhale 2 Puffs as instructed every 4 hours as needed. - Blood-Glucose Meter (FREESTYLE LITE METER) monitoring kit Use to test blood sugar as directed. Problem List As Of Date 06/25/2024 Noted Resolved Hypertension goal BP (blood pressure) < 140/90 *05/10/2006 Obesity, unspecified [E66.9] 05/10/2006 05/06/2017 Chronic pain of both shoulders [M25.511, G89.29*03/11/2009 Type II or unspecified type diabetes mellitus w*03/29/2009 09/29/2013 Mixed hyperlipidemia [E78.2] 03/29/2009 Carpal tunnel syndrome, bilateral [G56.03] 09/01/2010 05/06/2017 Unspecified gastritis and gastroduodenitis with*09/07/2010 05/06/2017 Panic attack [F41.0] 11/14/2010 Chronic bilateral low back pain with bilateral *01/15/2011 Diabetes mellitus type 2, uncontrolled, without*12/11/2012 05/06/2017 Right flank pain [R10.9] 01/14/2013 05/06/2017 Hematuria [R31.9] 01/14/2013 05/06/2017 History of kidney stones [Z87.442] 01/14/2013 Obesity [E66.9] 01/14/2013 05/06/2017 Allergic rhinitis [J30.9] 03/12/2013 Uncontrolled type 2 diabetes mellitus with comp*09/29/2013 05/06/2017 Type 2 diabetes mellitus with mild nonprolifera*01/09/2016 Cataract of both eyes [H26.9] 01/09/2016 Obesity, Class II, BMI 35-39.9 [E66.9] NIMESH (generalized anxiety disorder) [F41.1] 11/04/2019 GERD without esophagitis [K21.9] 11/04/2019 Marijuana use [F12.90] Neuropathy [G62.9] 11/04/2019 12/12/2023 Well adult exam [Z00.00] 11/04/2019 Plantar fasciitis, left [M72.2] 11/04/2019 12/12/2023 Medication management [Z79.899] 04/21/2021 Coronary artery disease due to lipid rich plaqu*04/27/2021 S/P coronary artery stent placement [Z9 (more content not included)... Normal [facility] CBC W Auto Differential pane l (Bld)on 06-23-2024 Basophils (Bld) [#/Vol] 0.11 10*3/uL High [facility] Basophils/100 WBC (Bld) 0.7 % [facility] Differential cell count method Nom (Bld) Auto [facility] Eosinophils (Bld) [#/Vol] 0.68 10*3/uL High [facility] Eosinophils/100 WBC (Bld) 4.6 % [facility] Erythrocyte distribution width (RBC) [Ratio] 13.3 % 11.5 - 15.0 % [facility] Hematocrit (Bld) [Volume fraction] 47.4 % 39.0 - 51.0 % [facility] Hemoglobin (Bld) [Mass/Vol] 15.6 g/dL 13.0 - 17.0 g/dL [facility] Immature granulocytes (Bld) [#/Vol] 0.07 10*3/uL [facility] Immature granulocytes/100 WBC (Bld) 0.5 % [facility] Interpretation and review of laboratory results Abnormal [facility] Lymphocytes (Bld) [#/Vol] 3.75 10*3/uL [facility] Lymphocytes/100 WBC (Bld) 25.1 % [facility] MCH (RBC) [Entitic mass] 30.8 pg 26.0 - 34.0 pg [facility] MCHC (RBC) [Mass/Vol] 32.9 g/dL 30.5 - 36.0 g/dL [facility] MCV (RBC) [Entitic vol] 93.5 fL 80.0 - 100.0 fL [facility] Monocytes (Bld) [#/Vol] 1.16 10*3/uL High [facility] Monocytes/100 WBC (Bld) 7.8 % [facility] Neutrophils (Bld) [#/Vol] 9.16 10*3/uL High [facility] Neutrophils/100 WBC (Bld) 61.3 % [facility] Nucleated RBC (Bld) [#/Vol] [facility] Nucleated RBC/100 WBC (Bld) [Ratio] 0.0 % /100 WBC [facility] Platelet mean volume (Bld) [Entitic vol] 11.2 fL 9.0 - 12.7 fL [facility] Platelets (Bld) [#/Vol] 324 10*3/uL [facility] RBC (Bld) [#/Vol] 5.07 10*6/uL 4.20 - 6.0 0 m/uL [facility] WBC (Bld) [#/Vol] 14.93 10*3/uL [facility] Basophils (Bld) [#/Vol] 0.11 10*3/uL High <0.11 [facility] Comment on above: Order Comment: Speci men Type: URINE SPECIMEN Ordering Facility: [facility] Address: [address] [place] [address] Performed By: #### 2 4356-8 #### [facility] CLIA [id number] [address] [place] [address] [place] Basophils/100 WBC (Bld) 0.7 % Normal [facility] Comment on above: Order Comment: Speci men Type: URINE SPECIMEN Ordering Facility: [facility] Address: [address] [place] [address] Performed By: #### 2 4356-8 #### [facility] CLIA [id number] [address] [place] [address] [place] Differential cell count method Nom (Bld) Auto Normal [facility] Comment on above: Order Comment: Speci men Type: URINE SPECIMEN Ordering Facility: [facility] Address: [address] [place] [address] Performed By: #### 2 4356-8 #### [facility] CLIA [id number] [address] [place] [address] [place] Eosinophils (Bld) [#/Vol] 0.68 10*3/uL High <0.46 [facility] Comment on above: Order Comment: Speci men Type: URINE SPECIMEN Ordering Facility: [facility] Address: [address] [place] [address] Performed By: #### 2 4356-8 #### [facility] CLIA [id number] [address] [place] [address] [place] Eosinophils/100 WBC (Bld) 4.6 % Normal [facility] Comment on above: Order Comment: Speci men Type: URINE SPECIMEN Ordering Facility: [facility] Address: [address] [place] [address] Performed By: #### 2 4356-8 #### [facility] CLIA [id number] [address] [place] [address] [place] Erythrocyte distribution width (RBC) [Ratio] 13.3 % Normal 11.5-15.0 [facility] Comment on above: Order Comment: Speci men Type: URINE SPECIMEN Ordering Facility: [facility] Address: [address] [place] [address] Performed By: #### 2 4356-8 #### [facility] CLIA [id number] [address] [place] [address] [place] Hematocrit (Bld) [Volume fraction] 47.4 % Normal 39.0-51.0 [facility] Comment on above: Order Comment: Speci men Type: URINE SPECIMEN Ordering Facility: [facility] Address: [address] [place] [address] Performed By: #### 2 4356-8 #### [facility] CLIA [id number] [address] [place] [address] [place] Hemoglobin (Bld) [Mass/Vol] 15.6 g/dL Normal 13.0-17.0 [facility] Comment on above: Order Comment: Speci men Type: URINE SPECIMEN Ordering Facility: [facility] Address: [address] [place] [address] Performed By: #### 2 4356-8 #### [facility] CLIA [id number] [address] [place] [address] [place] Immature granulocytes (Bld) [#/Vol] 0.07 10*3/uL Normal <0.10 [facility] Comment on above: Order Comment: Speci men Type: URINE SPECIMEN Ordering Facility: [facility] Address: [address] [place] [address] Performed By: #### 2 4356-8 #### [facility] CLIA [id number] [address] [place] [address] [place] Immature granulocytes/100 WBC (Bld) 0.5 % Normal [facility] Comment on above: Order Comment: Speci men Type: URINE SPECIMEN Ordering Facility: [facility] Address: [address] [place] [address] Performed By: #### 2 4356-8 #### [facility] CLIA [id number] [address] [place] [address] [place] Lymphocytes (Bld) [#/Vol] 3.75 10*3/uL Normal 1.00-4.00 [facility] Comment on above: Order Comment: Speci men Type: URINE SPECIMEN Ordering Facility: [facility] Address: [address] [place] [address] Performed By: #### 2 4356-8 #### [facility] CLIA [id number] [address] [place] [address] [place] Lymphocytes/100 WBC (Bld) 25.1 % Normal [facility] Comment on above: Order Comment: Speci men Type: URINE SPECIMEN Ordering Facility: [facility] Address: [address] [place] [address] Performed By: #### 2 4356-8 #### [facility] CLIA [id number] [address] [place] [address] [place] MCH (RBC) [Entitic mass] 30.8 pg Normal 26.0-34.0 [facility] Comment on above: Order Comment: Speci men Type: URINE SPECIMEN Ordering Facility: [facility] Address: [address] [place] [address] Performed By: #### 2 4356-8 #### [facility] CLIA [id number] [address] [place] [address] [place] MCHC (RBC) [Mass/Vol] 32.9 g/dL Normal 30.5-36.0 [facility] Comment on above: Order Comment: Speci men Type: URINE SPECIMEN Ordering Facility: [facility] Address: [address] [place] [address] Performed By: #### 2 4356-8 #### [facility] CLIA [id number] [address] [place] [address] [place] MCV (RBC) [Entitic vol] 93.5 fL Normal 80.0-100.0 [facility] Comment on above: Order Comment: Speci men Type: URINE SPECIMEN Ordering Facility: [facility] Address: [address] [place] [address] Performed By: #### 2 4356-8 #### [facility] CLIA [id number] [address] [place] [address] [place] Monocytes (Bld) [#/Vol] 1.16 10*3/uL High <0.87 [facility] Comment on above: Order Comment: Speci men Type: URINE SPECIMEN Ordering Facility: [facility] Address: [address] [place] [address] Performed By: #### 2 4356-8 #### [facility] CLIA [id number] [address] [place] [address] [place] Monocytes/100 WBC (Bld) 7.8 % Normal [facility] Comment on above: Order Comment: Speci men Type: URINE SPECIMEN Ordering Facility: [facility] Address: [address] [place] [address] Performed By: #### 2 4356-8 #### [facility] CLIA [id number] [address] [place] [address] [place] Neutrophils (Bld) [#/Vol] 9.16 10*3/uL High 1.45-7.50 [facility] Comment on above: Order Comment: Speci men Type: URINE SPECIMEN Ordering Facility: [facility] Address: [address] [place] [address] Performed By: #### 2 4356-8 #### [facility] CLIA [id number] [address] [place] [address] [place] Neutrophils/100 WBC (Bld) 61.3 % Normal [facility] Comment on above: Order Comment: Speci men Type: URINE SPECIMEN Ordering Facility: [facility] Address: [address] [place] [address] Performed By: #### 2 4356-8 #### [facility] CLIA [id number] [address] [place] [address] [place] Nucleated RBC (Bld) [#/Vol] 10*3/uL Normal <0.01 [facility] Comment on above: Order Comment: Speci men Type: URINE SPECIMEN Ordering Facility: [facility] Address: [address] [place] [address] Performed By: #### 2 4356-8 #### [facility] CLIA [id number] [address] [place] [address] [place] Nucleated RBC/100 WBC (Bld) [Ratio] 0.0 /100 WBC Normal [facility] Comment on above: Order Comment: Speci men Type: URINE SPECIMEN Ordering Facility: [facility] Address: [address] [place] [address] Performed By: #### 2 4356-8 #### [facility] CLIA [id number] [address] [place] [address] [place] Platelet mean volume (Bld) [Entitic vol] 11.2 fL Normal 9.0-12.7 [facility] Comment on above: Order Comment: Speci men Type: URINE SPECIMEN Ordering Facility: [facility] Address: [address] [place] [address] Performed By: #### 2 4356-8 #### [facility] CLIA [id number] [address] [place] [address] [place] Platelets (Bld) [#/Vol] 324 10*3/uL Normal 150-400 [facility] Comment on above: Order Comment: Speci men Type: URINE SPECIMEN Ordering Facility: [facility] Address: [address] [place] [address] Performed By: #### 2 4356-8 #### [facility] CLIA [id number] [address] [place] [address] [place] RBC (Bld) [#/Vol] 5.07 10*6/uL Normal 4.20-6.00 [facility] Comment on above: Order Comment: Speci men Type: URINE SPECIMEN Ordering Facility: [facility] Address: [address] [place] [address] Performed By: #### 2 4356-8 #### [facility] CLIA [id number] [address] [place] [address] [place] WBC (Bld) [#/Vol] 14.93 10*3/uL High 3.70-11.[address] [facility] Comment on above: Order Comment: Speci men Type: URINE SPECIMEN Ordering Facility: [facility] Address: [address] [place] [address] Performed By: #### 2 4356-8 #### [facility] CLIA [id number] [address] [place] [address] [facility] Kiran 06-23-2024 [facility] Tele[facility] ([facility]) MICHAEL YOUNGBLOOD ([id number]) 1975 M Date Time Provider Department 06/23/24 DAVE ABREU During your visit today, we recorded the following information about you: Allergies As of Date: 06/23/2024 (No Known Allergies) Date Reviewed: 06/16/2024 Reviewed by: Leanne Moore MA - Fully Assessed Primary Visit Diagnosis:Leukocytosis, unspecified type [D72.829] Order(s):COMPLETE BLOOD COUNT AND DIFFERENTIAL [SQCBCDIF] Order #: [id number] FUTURE Prescriptions as of 06/23/2024 - atorvastatin (LIPITOR) 40 mg tablet Take 1 tablet by mouth once daily. - levothyroxine (LEVOXYL) 25 mcg tablet Take 1 tablet by mouth once daily. Take on empty stomach. For Thyroid - JARDIANCE 10 mg tablet Take 1 tablet by mouth every afternoon. - Insulin Strang, Disposable, 31 gauge x 1/ ndle USE ONE PEN NEEDLE PER DOSE 4 times a day, Dx E11.3299 on insulin - omeprazole (PRILOSEC) 20 mg capsule TAKE 1 CAPSULE BY MOUTH ONCE DAILY 30 MINUTES BEFORE BREAKFAST - clotrimazole (LOTRIMIN) 1 % cream - aspirin 81 mg cap Take 1 tablet by mouth once daily. - DULoxetine (CYMBALTA) 30 mg capsule Take 1 capsule by mouth two times a day. - lisinopril (ZESTRIL) 5 mg tablet Take 1 tablet by mouth once daily. Decreased by cardio 06/2023 due to low BP and dizziness - insulin glargine (BASAGLAR KWIKPEN U-100 INSULIN) 100 unit/mL (3 mL) Inject 26 Units subcutaneously every morning. Per Endocrine, Dr. Conte - insulin aspart U-100 (NOVOLOG FLEXPEN U-100 INSULIN) 100 unit/mL (3 mL) Inject 18 Units subcutaneously three times daily before meals. And 9 units with snacks. Per Endocrine Dr. Conte - isosorbide mononitrate ER (IMDUR) 60 mg 24 hr tablet Take 1 tablet by mouth once daily. Per [facility] - fluticasone (FLONASE) 50 mcg/actuation nasal spray Use 2 Sprays in each nostril once daily. Rinse mouth after use. - clopidogrel (PLAVIX) 75 mg tablet Take 1 tablet by mouth once daily. Per [facility]. - nitroglycerin sublingual (NITROQUICK) 0.4 mg SL tablet DISSOLVE ONE TABLET UNDER THE TONGUE EVERY 5 MINUTES NEEDED FOR CARDIAC CHEST PAIN - blood sugar diagnostic (BLOOD GLUCOSE TEST) test strip Test blood sugar(s) 2-3 times daily. Dx: Other DM Code E11.3299 Insulin: Yes - Lancets lancets Test blood sugar(s) 2-3 times daily. Dx: Other DM Code E11.3299 Insulin: Yes - blood sugar diagnostic (FREESTYLE LITE STRIPS) test strip USE ONE STRIP TWICE DAILY TO CHECK BLOOD GLUCOSE - lancets (FREESTYLE LANCETS) 28 gauge Test blood sugar(s) 2 times daily. Dx: Uncontrolled Diabetes 250.02. Insulin: No - albuterol HFA (VENTOLIN HFA) 90 mcg/actuation inhaler Inhale 2 Puffs as instructed every 4 hours as needed. - Blood-Glucose Meter (FREESTYLE LITE METER) monitoring kit Use to test blood sugar as directed. Problem List As Of Date 06/23/2024 Noted Resolved Hypertension goal BP (blood pressure) < 140/90 *05/10/2006 Obesity, unspecified [E66.9] 05/10/2006 05/06/2017 Chronic pain of both shoulders [M25.511, G89.29*03/11/2009 Type II or unspecified type diabetes mellitus w*03/29/2009 09/29/2013 Mixed hyperlipidemia [E78.2] 03/29/2009 Carpal tunnel syndrome, bilateral [G56.03] 09/01/2010 05/06/2017 Unspecified gastritis and gastroduodenitis with*09/07/2010 05/06/2017 Panic attack [F41.0] 11/14/2010 Chronic bilateral low back pain with bilateral *01/15/2011 Diabetes mellitus type 2, uncontrolled, without*12/11/2012 05/06/2017 Right flank pain [R10.9] 01/14/2013 05/06/2017 Hematuria [R31.9] 01/14/2013 05/06/2017 History of kidney stones [Z87.442] 01/14/2013 Obesity [E66.9] 01/14/2013 05/06/2017 Allergic rhinitis [J30.9] 03/12/2013 Uncontrolled type 2 diabetes mellitus with comp*09/29/2013 05/06/2017 Type 2 diabetes mellitus with mild nonprolifera*01/09/2016 Cataract of both eyes [H26.9] 01/09/2016 Obesity, Class II, BMI 35-39.9 [E66.9] NIMESH (generalized anxiety disorder) [F41.1] 11/04/2019 GERD without esophagitis [K21.9] 11/04/2019 Marijuana use [F12.90] Neuropathy [G62.9] 11/04/2019 12/12/2023 Well adult exam [Z00.00] 11/04/2019 Plantar fasciitis, left [M72.2] 11/04/2019 12/12/2023 Medication management [Z79.899] 04/21/2021 Coronary artery disease due to lipid rich plaqu*04/27/2021 S/P coronary artery stent placement [Z95.5] 04/27/2021 Acquired hypothyroidism [E03.9] 05/01/2021 Bilateral carotid artery stenosis [I65.23] 05/08/2021 Subclavian artery stenosis, right (HCC) [I77.1] 05/08/2021 Diabetic eye exam (HCC) [Z01.00, E11.9] 01/12/2022 History of non-ST elevation myocardial infarcti*09/03/2022 Abnormal weight gain [R63.5] 12/12/2023 12/12/2023 Diagnosed: 12/12/2023 ACS (acute coronary syndrome) (HCC) [I24.9] 12/12/2023 12/12/2023 Diagnosed: 12/12/2023 Bilateral arm weakness [R29.898] 12/12/2023 12/12/2023 Diagnosed: 12/12/2023 Blurring of visual image [H53.8] (more content not included)... [facility] MICHAEL YOUNGBLOOD ([id number]) 1975 M Date Time Provider Department 06/18/24 [facility] During your visit today, we recorded the following information about you: Dave Abreu APRN.MORTGAGE ANALYST 06/18/2024 12:45 PM Signed Please let patient know his labs show a high WBC count. Was patient feeling unwell or recently sick? I would like him to repeat cbc in 1 week. His hgba1c is elevated. Please fax lab results to Dr. Conte at [facility]. Leanne Moore MA 06/18/2024 1:00 PM Signed Pt notified and verbalized understanding. Pt states he recently was sick Leanne MASHA Moore Danielle, WIN.MORTGAGE ANALYST 06/18/2024 1:19 PM Signed Noted. Allergies As of Date: 06/18/2024 (No Known Allergies) Date Reviewed: 06/16/2024 Reviewed by: Leanne Moore MA - Fully Assessed Reason for Visit: Results [95] Prescriptions as of 06/18/2024 - atorvastatin (LIPITOR) 40 mg tablet Take 1 tablet by mouth once daily. - levothyroxine (LEVOXYL) 25 mcg tablet Take 1 tablet by mouth once daily. Take on empty stomach. For Thyroid - JARDIANCE 10 mg tablet Take 1 tablet by mouth every afternoon. - Insulin Strang, Disposable, 31 gauge x 1/4 ndle USE ONE PEN NEEDLE PER DOSE 4 times a day, Dx E11.3299 on insulin - omeprazole (PRILOSEC) 20 mg capsule TAKE 1 CAPSULE BY MOUTH ONCE DAILY 30 MINUTES BEFORE BREAKFAST - clotrimazole (LOTRIMIN) 1 % cream - aspirin 81 mg cap Take 1 tablet by mouth once daily. - DULoxetine (CYMBALTA) 30 mg capsule Take 1 capsule by mouth two times a day. - lisinopril (ZESTRIL) 5 mg tablet Take 1 tablet by mouth once daily. Decreased by cardio 06/2023 due to low BP and dizziness - insulin glargine (BASAGLAR KWIKPEN U-100 INSULIN) 100 unit/mL (3 mL) Inject 26 Units subcutaneously every morning. Per Endocrine, Dr. Conte - insulin aspart U-100 (NOVOLOG FLEXPEN U-100 INSULIN) 100 unit/mL (3 mL) Inject 18 Units subcutaneously three times daily before meals. And 9 units with snacks. Per Endocrine Dr. Conte - isosorbide mononitrate ER (IMDUR) 60 mg 24 hr tablet Take 1 tablet by mouth once daily. Per [facility] - fluticasone (FLONASE) 50 mcg/actuation nasal spray Use 2 Sprays in each nostril once daily. Rinse mouth after use. - clopidogrel (PLAVIX) 75 mg tablet Take 1 tablet by mouth once daily. Per [facility]. - nitroglycerin sublingual (NITROQUICK) 0.4 mg SL tablet DISSOLVE ONE TABLET UNDER THE TONGUE EVERY 5 MINUTES NEEDED FOR CARDIAC CHEST PAIN - blood sugar diagnostic (BLOOD GLUCOSE TEST) test strip Test blood sugar(s) 2-3 times daily. Dx: Other DM Code E11.3299 Insulin: Yes - Lancets lancets Test blood sugar(s) 2-3 times daily. Dx: Other DM Code E11.3299 Insulin: Yes - blood sugar diagnostic (FREESTYLE LITE STRIPS) test strip USE ONE STRIP TWICE DAILY TO CHECK BLOOD GLUCOSE - lancets (FREESTYLE LANCETS) 28 gauge Test blood sugar(s) 2 times daily. Dx: Uncontrolled Diabetes 250.02. Insulin: No - albuterol HFA (VENTOLIN HFA) 90 mcg/actuation inhaler Inhale 2 Puffs as instructed every 4 hours as needed. - Blood-Glucose Meter (FREESTYLE LITE METER) monitoring kit Use to test blood sugar as directed. Problem List As Of Date 06/18/2024 Noted Resolved Hypertension goal BP (blood pressure) < 140/90 *05/10/2006 Obesity, unspecified [E66.9] 05/10/2006 05/06/2017 Chronic pain of both shoulders [M25.511, G89.29*03/11/2009 Type II or unspecified type diabetes mellitus w*03/29/2009 09/29/2013 Mixed hyperlipidemia [E78.2] 03/29/2009 Carpal tunnel syndrome, bilateral [G56.03] 09/01/2010 05/06/2017 Unspecified gastritis and gastroduodenitis with*09/07/2010 05/06/2017 Panic attack [F41.0] 11/14/2010 Chronic bilateral low back pain with bilateral *01/15/2011 Diabetes mellitus type 2, uncontrolled, without*12/11/2012 05/06/2017 Right flank pain [R10.9] 01/14/2013 05/06/2017 Hematuria [R31.9] 01/14/2013 05/06/2017 History of kidney stones [Z87.442] 01/14/2013 Obesity [E66.9] 01/14/2013 05/06/2017 Allergic rhinitis [J30.9] 03/12/2013 Uncontrolled type 2 diabetes mellitus with comp*09/29/2013 05/06/2017 Type 2 diabetes mellitus with mild nonprolifera*01/09/2016 Cataract of both eyes [H26.9] 01/09/2016 Obesity, Class II, BMI 35-39.9 [E66.9] NIMESH (generalized anxiety disorder) [F41.1] 11/04/2019 GERD without esophagitis [K21.9] 11/04/2019 Marijuana use [F12.90] Neuropathy [G62.9] 11/04/2019 12/12/2023 Well adult exam [Z00.00] 11/04/2019 Plantar fasciitis, left [M72.2] 11/04/2019 12/12/2023 Medication management [Z79.899] 04/21/2021 Coronary artery disease due to lipid rich plaqu*04/27/2021 S/P coronary artery stent placement [Z95.5] 04/27/2021 Acquired hypothyroidism [E03.9] 05/01/2021 Bilateral carotid artery stenosis [I65.23] 05/08/2021 Subclavian artery stenosis, right (HCC) [I77.1] 05/08/2021 Diabetic eye ex (more content not included)... Normal [facility] ALBUMIN/CREATININE RATIO, UR INEon 06-16-2024 Albumin DL <= 20 mg/L (U) [Mass/Vol] mg/dL Normal [facility] Comment on above: Order Comment: Speci men Type: BLOOD SPECIMEN Ordering Facility: [facility] Address: [address] [place] [address] Performed By: #### 3 016-3, 10414-4, LIPNF #### [facility] CLIA [id number] [address] [place], [place] [address] [place] [address] [place] Albumin/Creatinin e (U) [Mass ratio] <15 Normal <30 [facility] Comment on above: Order Comment: Speci men Type: BLOOD SPECIMEN Ordering Facility: [facility] Address: [address] [place] [address] Result Comment: Adul t Male and Female Nephrotic Criteria: <30 mg/g is considered normal to mildly increased 30-300 mg/g is considered moderately increased >300 mg/g is considered severely increased KDIGO. (2013). KDIGO 2012 Clinical Practice Guideline for the Evaluation and Management of Chronic Kidney Disease. Official Journal of the International Society of Nephrology, 3(1), 1-150. Performed By: #### 3 016-3, 74499-2, LIPNF #### [facility] CLIA [id number] [address] [place] [address] [place] Creatinine (U) [Mass/Vol] 79.2 mg/dL Normal 20.0-300.0 [facility] Comment on above: Order Comment: Speci men Type: BLOOD SPECIMEN Ordering Facility: [facility] Address: [address] [place] [address] Performed By: #### 3 016-3, 35122-0, LIPNF #### [facility] CLIA [id number] [address] [place] [address] [place] CBC W Auto Differential pane l (Bld)on 06-16-2024 Basophils (Bld) [#/Vol] 0.15 10*3/uL High <0.11 [facility] Comment on above: Order Comment: Speci men Type: BLOOD SPECIMENOrdering Facility: [facility] Address: [address] [place] [address] Performed By: #### 5 7021-8 ####[facility] [id number] [place] [address] [place] Basophils/100 WBC (Bld) 1.1 % Normal [facility] Comment on above: Order Comment: Speci men Type: BLOOD SPECIMENOrdering Facility: [facility] Address: [address] [place] [address] Performed By: #### 5 7021-8 ####[facility] [id number] [place] [address] [place] Differential cell count method Nom (Bld) Auto Normal [facility] Comment on above: Order Comment: Speci men Type: BLOOD SPECIMENOrdering Facility: [facility] Address: [address] [place] [address] Performed By: #### 5 7021-8 ####[facility] [id number] [place] [address] [place] Eosinophils (Bld) [#/Vol] 0.54 10*3/uL High <0.46 [facility] Comment on above: Order Comment: Speci men Type: BLOOD SPECIMENOrdering Facility: [facility] Address: [address] [place] [address] Performed By: #### 5 7021-8 ####[facility] [id number] [place] [address] [place] Eosinophils/100 WBC (Bld) 3.9 % Normal [facility] Comment on above: Order Comment: Speci men Type: BLOOD SPECIMENOrdering Facility: [facility] Address: [address] [place] [address] Performed By: #### 5 7021-8 ####[facility] [id number] [place] [address] [place] Erythrocyte distribution width (RBC) [Ratio] 13.2 % Normal 11.5-15.0 [facility] Comment on above: Order Comment: Speci men Type: BLOOD SPECIMENOrdering Facility: [facility] Address: [address] [place] [address] Performed By: #### 5 7021-8 ####[facility] [id number] [place] [address] [place] Hematocrit (Bld) [Volume fraction] 50.4 % Normal 39.0-51.0 [facility] Comment on above: Order Comment: Speci men Type: BLOOD SPECIMENOrdering Facility: [facility] Address: [address] [place] [address] Performed By: #### 5 7021-8 ####[facility] [id number] [address] [id number] [address] [place] Hemoglobin (Bld) [Mass/Vol] 16.7 g/dL Normal 13.0-17.0 [facility] Comment on above: Order Comment: Speci men Type: BLOOD SPECIMENOrdering Facility: [facility] Address: [address] [place] [address] Performed By: #### 5 7021-8 ####[facility] [id number] [place] [address] [place] Immature granulocytes (Bld) [#/Vol] 0.05 10*3/uL Normal <0.10 [facility] Comment on above: Order Comment: Speci men Type: BLOOD SPECIMENOrdering Facility: [facility] Address: [address] [place] [address] Performed By: #### 5 7021-8 ####[facility] [id number] [place] [address] [place] Immature granulocytes/100 WBC (Bld) 0.4 % Normal [facility] Comment on above: Order Comment: Speci men Type: BLOOD SPECIMENOrdering Facility: [facility] Address: [address] [place] [address] Performed By: #### 5 7021-8 ####[facility] [id number] [place] [address] [place] Lymphocytes (Bld) [#/Vol] 2.96 10*3/uL Normal 1.00-4.00 [facility] Comment on above: Order Comment: Speci men Type: BLOOD SPECIMENOrdering Facility: [facility] Address: [address] [place] [address] Performed By: #### 5 7021-8 ####[facility] [id number] [place] [address] [place] Lymphocytes/100 WBC (Bld) 21.5 % Normal [facility] Comment on above: Order Comment: Speci men Type: BLOOD SPECIMENOrdering Facility: [facility] Address: [address] [place] [address] Performed By: #### 5 7021-8 ####[facility] [id number] [place] [address] [place] MCH (RBC) [Entitic mass] 30.9 pg Normal 26.0-34.0 [facility] Comment on above: Order Comment: Speci men Type: BLOOD SPECIMENOrdering Facility: [facility] Address: [address] [place] [address] Performed By: #### 5 7021-8 ####[facility] [id number] [place] [address] [place] MCHC (RBC) [Mass/Vol] 33.1 g/dL Normal 30.5-36.0 [facility] Comment on above: Order Comment: Speci men Type: BLOOD SPECIMENOrdering Facility: [facility] Address: [address] [place] [address] Performed By: #### 5 7021-8 ####[facility] [id number] [place] [address] [place] MCV (RBC) [Entitic vol] 93.2 fL Normal 80.0-100.0 [facility] Comment on above: Order Comment: Speci men Type: BLOOD SPECIMENOrdering Facility: [facility] Address: [address] [place] [address] Performed By: #### 5 7021-8 ####[facility] [id number] [place] [address] [place] Monocytes (Bld) [#/Vol] 1.06 10*3/uL High <0.87 [facility] Comment on above: Order Comment: Speci men Type: BLOOD SPECIMENOrdering Facility: [facility] Address: [address] [place] [address] Performed By: #### 5 7021-8 ####[facility] [id number] [place] [address] [place] Monocytes/100 WBC (Bld) 7.7 % Normal [facility] Comment on above: Order Comment: Speci men Type: BLOOD SPECIMENOrdering Facility: [facility] Address: [address] [place] [address] Performed By: #### 5 7021-8 ####[facility] [id number] [place] [address] [place] Neutrophils (Bld) [#/Vol] 9.00 10*3/uL High 1.45-7.50 [facility] Comment on above: Order Comment: Speci men Type: BLOOD SPECIMENOrdering Facility: [facility] Address: [address] [place] [address] Performed By: #### 5 7021-8 ####[facility] [id number] [place] [address] [place] Neutrophils/100 WBC (Bld) 65.4 % Normal [facility] Comment on above: Order Comment: Speci men Type: BLOOD SPECIMENOrdering Facility: [facility] Address: [address] [place] [address] Performed By: #### 5 7021-8 ####[facility] [id number] [place] [address] [place] Nucleated RBC (Bld) [#/Vol] 10*3/uL Normal <0.01 [facility] Comment on above: Order Comment: Speci men Type: BLOOD SPECIMENOrdering Facility: [facility] Address: [address] [place] [address] Performed By: #### 5 7021-8 ####[facility] [id number] [place] [address] [place] Nucleated RBC/100 WBC (Bld) [Ratio] 0.0 /100 WBC Normal [facility] Comment on above: Order Comment: Speci men Type: BLOOD SPECIMENOrdering Facility: [facility] Address: [address] [place] [address] Performed By: #### 5 7021-8 ####[facility] [id number] [place] [address] [place] Platelet mean volume (Bld) [Entitic vol] 11.1 fL Normal 9.0-12.7 [facility] Comment on above: Order Comment: Speci men Type: BLOOD SPECIMENOrdering Facility: [facility] Address: [address] [place] [address] Performed By: #### 5 7021-8 ####[facility] [id number] [place] [address] [place] Platelets (Bld) [#/Vol] 293 10*3/uL Normal 150-400 [facility] Comment on above: Order Comment: Speci men Type: BLOOD SPECIMENOrdering Facility: [facility] Address: [address] [place] [address] Performed By: #### 5 7021-8 ####[facility] [id number] [place] [address] [place] RBC (Bld) [#/Vol] 5.41 10*6/uL Normal 4.20-6.00 [facility] Comment on above: Order Comment: Speci men Type: BLOOD SPECIMENOrdering Facility: [facility] Address: [address] [place] [address] Performed By: #### 5 7021-8 ####[facility] [id number] [place] [address] [place] WBC (Bld) [#/Vol] 13.76 10*3/uL High 3.70-11.[address] [facility] Comment on above: Order Comment: Speci men Type: BLOOD SPECIMENOrdering Facility: [facility] Address: [address] [place] [address] Performed By: #### 5 7021-8 ####[facility] [id number] [address] [facility] CNOVon 06-16-2024 CNOV Office Visit (FAMPWS ) MICHAEL YOUNGBLOOD ([id number]) 1975 M Date Time Provider Department 06/16/24 11:00 AM DAVE ABREU During your visit today, we recorded the following information about you: Pulse Respiration Blood pressure Weight 59/minute 16/minute 112/75 117.5 kg Dave Abreu APRN.MORTGAGE ANALYST 06/16/2024 11:19 AM Signed Chief Complaint Patient presents with: Physical HPI Michael Christopher Rylie is a 48 year old male who presents here today for Above Complaints.. Patient presents for annual physical. Patient reports he is doing well. Patient reports he has a spot on his foot he is concerned about, follows with podiatry. Past medical history, appointments, medications, allergies reviewed. Previous Medical History PAST MEDICAL HISTORY 03/12/2013: Allergic rhinitis 05/08/2021: Bilateral carotid artery stenosis Comment: US 04/2021: Right 0-19%, Left 20-40% 01/09/2016: Cataract of both eyes 01/15/2011: Chronic bilateral low back pain with bilateral sciatica 03/11/2009: Chronic pain of both shoulders 04/27/2021: Coronary artery disease due to lipid rich plaque Comment: Seeing [facility] 01/12/2022: Diabetic eye exam (HCC) Comment: Last done 01/11/22 [facility] 12/12/2023: Diabetic neuropathy (HCC) 11/04/2019: NIMESH (generalized anxiety disorder) 11/04/2019: GERD without esophagitis 01/14/2013: History of kidney stones 05/10/2006: Hypertension goal BP (blood pressure) < 140/90 2008: Kidney stones No date: Marijuana use 03/29/2009: Mixed hyperlipidemia No date: Obesity, Class II, BMI 35-39.9 11/14/2010: Panic attack 11/04/2019: Plantar fasciitis, left 04/27/2021: S/P coronary artery stent placement Comment: 2 stents 04/24/2021 05/08/2021: Subclavian artery stenosis, right (HCC) Comment: [place] 04/2021: 50-99% 01/09/2016: Type 2 diabetes mellitus with mild nonproliferative diabetic retinopathy without macular edema ([facility]) Comment: [facility] - . 11/04/2019: Well adult exam Comment: Last done: 11/04/2019 Previous Surgical History PAST SURGICAL HISTORY 08/29/2022: CC CORONARY STENT Comment: stent to LAD and Mid Circ 04/24/2021: CORONARY STENT INITIAL Comment: 2 stents placed 09/07/2010: EGD TRANSORAL BIOPSY SINGLE/MULTIPLE Comment: gastritis, diffuse, moderate 10/28/2001: LEFT HEART CATH,PERCUTANEOUS Comment: Cardiac cath, L heart No date: PAST SURGICAL HISTORY OF Comment: remote ?cystoscopy Family History FAMILY HISTORY Problem [...] on File Prior to Visit Medication Sig Insulin Strang, Disposable, 31 gauge x 1/4 ndle USE ONE PEN NEEDLE PER DOSE 4 times a day, Dx E11.3299 on insulin omeprazole (PRILOSEC) 20 mg capsule TAKE 1 CAPSULE BY MOUTH ONCE DAILY 30 MINUTES BEFORE BREAKFAST clotrimazole (LOTRIMIN) 1 % cream aspirin 81 mg cap Take 1 tablet by mouth once daily. DULoxetine (CYMBALTA) 30 mg capsule Take 1 capsule by mouth two times a day. lisinopril (ZESTRIL) 5 mg tablet Take 1 tablet by mouth once daily. Decreased by cardio 06/2023 due to low BP and dizziness insulin glargine (BASAGLAR KWIKPEN U-100 INSULIN) 100 [...] 1 tablet by mouth once daily. Per [facility] fluticasone (FLONASE) 50 mcg/actuation nasal spray Use 2 Sprays in each nostril once daily. Rinse mouth after use. clopidogrel (PLAVIX) 75 mg tablet Take 1 tablet by mouth once daily. Per [facility]. nitroglycerin sublingual (NITROQUICK) 0.4 mg SL tablet DISSOLVE ONE TABLET UNDER THE TONGUE EVERY 5 MINUTES NEEDED FOR CARDIAC CHEST PAIN blood sugar diagnostic (BLOOD GLUCOSE TEST) test strip Test blood sugar(s) 2-3 times daily. Dx: Other DM Code E11.3299 Insulin: Yes Lancets lancets Test blood sugar(s) 2-3 times daily. Dx: Other DM Code E11.3299 Insulin: Yes blood sugar diagnostic (FREESTYLE LITE STRIPS) test strip USE ONE STRIP T (more content not included)... Normal [facility] Comprehensive metabolic 2000 panelon 06-16-2024 Albumin [Mass/Vol] 4.6 g/dL Normal 3.9-4.9 [facility] Comment on above: Order Comment: Speci men Type: BLOOD SPECIMENOrdering Facility: [facility] Address: [address] [place] [address] Performed By: #### 2 4323-8, 25475-1, LIPNF, 3016-3 ####[facility] [id number] [place] [address] [place] ALP [Catalytic activity/Vol] 118 U/L High 38-113 [facility] Comment on above: Order Comment: Speci men Type: BLOOD SPECIMENOrdering Facility: [facility] Address: [address] [place] [address] Performed By: #### 2 4323-8, 47779-2, LIPNF, 3016-3 ####[facility] [id number] [place] [id number] [place] ALT [Catalytic activity/Vol] 26 U/L Normal 10-54 [facility] Comment on above: Order Comment: Speci men Type: BLOOD SPECIMENOrdering Facility: [facility] Address: [address] [place] [address] Performed By: #### 2 4323-8, 47250-2, LIPNF, 3016-3 ####[facility] [id number] [place] [address] [place] Anion gap [Moles/Vol] 12 mmol/L Normal 8-15 [facility] Comment on above: Order Comment: Speci men Type: BLOOD SPECIMENOrdering Facility: [facility] Address: [address] [place] [address] Performed By: #### 2 4323-8, 87227-7, LIPNF, 3016-3 ####[facility] LABIA [id number] [place] [address] [place] AST [Catalytic activity/Vol] 17 U/L Normal 14-40 [facility] Comment on above: Order Comment: Speci men Type: BLOOD SPECIMENOrdering Facility: [facility] Address: [address] [place] [address] Performed By: #### 2 4323-8, 95504-4, LIPNF, 3016-3 ####[facility] LABIA [id number] [place] [id number] [place] Bilirubin [Mass/Vol] 0.7 mg/dL Normal 0.2-1.3 [facility] Comment on above: Order Comment: Speci men Type: BLOOD SPECIMENOrdering Facility: [facility] Address: [address] [place] [address] Performed By: #### 2 4323-8, , LIPNF, 6-3 ####[facility] LABCLIA [id number] [address] [address] [place] Calcium [Mass/Vol] 9.8 mg/dL Normal 8.5-10.2 [facility] Comment on above: Order Comment: Speci men Type: BLOOD SPECIMENOrdering Facility: [facility] Address: [address] [place] [address] Performed By: #### 2 4323-8, , LIPNF, 6-3 ####[facility] LABCLIA [id number] [place] [address] [place] Chloride [Moles/Vol] 102 mmol/L Normal 98-107 [facility] Comment on above: Order Comment: Speci men Type: BLOOD SPECIMENOrdering Facility: [facility] Address: [address] [place] [address] Performed By: #### 2 432-8, , LIPNF, 6-3 ####[facility] LABCLIA [id number] [place] [id number] [place] CO2 [Moles/Vol] 25 mmol/L Normal 22-30 [facility] Comment on above: Order Comment: Speci men Type: BLOOD SPECIMENOrdering Facility: [facility] Address: [address] [place] [address] Performed By: #### 2 4323-8, , LIPNF, 3016-3 ####[facility]CLIA [id number] [address] [address] [place] Creatinine [Mass/Vol] 0.86 mg/dL Normal 0.73-1.22 [facility] Comment on above: Order Comment: Speci men Type: BLOOD SPECIMENOrdering Facility: [facility] Address: [address] [place] [address] Performed By: #### 2 4323-8, , LIPNF, 3016-3 ####[facility] LABCLIA [id number] [place] [address] [place] Creatinine and Glomerular filtration rate.predicted panel (S/P/Bld) 107 mL/min/1.73m??? Normal >=60 [facility] Comment on above: Order Comment: [place]on cash Type: BLOOD SPECIMENOrdering Facility: [facility] Address: [address] [place] [address] Result Comment: Smiley mated Glomerular Filtration Rate (eGFR) is calculated using the 2020 CKD-EPI creatinine equation. This equation utilizes serum creatinine, sex, and age as parameters. The creatinine assay has traceable calibration to isotope dilution-mass spectrometry. Refer to KDIGO guidelines for clinical interpretation. In patients with unstable renal function, e.g. those with acute kidney injury, the eGFR may not accurately reflect actual GFR. Performed By: #### 2 4323-8, 38244-9, JIMMY, 6-3 ####[facility] [id number] [place] [address] [place] Glucose [Mass/Vol] 144 mg/dL High 74-99 [facility] Comment on above: Order Comment: [place] cash Type: BLOOD SPECIMENOrdering Facility: [facility] Address: [address] [place] [address] Result Comment: The [place] Diabetes Association (ADA) provides guidance for cutoff values for fasting glucose and random glucose. The ADA defines fasting as no caloric intake for at least 8 hours. Fasting plasma glucose results between 100 to 125 mg/dL indicate increased risk for diabetes (prediabetes). Fasting plasma glucose results greater than or equal to 126 mg/dL meet the criteria for diagnosis of diabetes. In the absence of unequivocal hyperglycemia, results should be confirmed by repeat testing. In a patient with classic symptoms of hyperglycemia or hyperglycemic crisis, random plasma glucose results greater than or equal to 200 mg/dL meet the criteria for diagnosis of diabetes. Reference: Standards of Medical Care in Diabetes 2016, [place] Diabetes Association. Diabetes Care. 2016.39(Suppl 1). Performed By: #### 2 4323-8, 44492-3, JIMMY, 6-3 ####[facility] LABCLIA [id number] [address] [address] [place] Potassium [Moles/Vol] 4.7 mmol/L Normal 3.7-5.1 [facility] Comment on above: Order Comment: Speci men Type: BLOOD SPECIMENOrdering Facility: [facility] Address: [address] [place] [address] Performed By: #### 2 4323-8, 90411-2, LIPNF, 6-3 ####[facility]CLIA [id number] [address] [address] [place] Protein [Mass/Vol] 7.5 g/dL Normal 6.3-8.0 [facility] Comment on above: Order Comment: Speci men Type: BLOOD SPECIMENOrdering Facility: [facility] Address: [address] [place] [address] Performed By: #### 2 4323-8, , LIPNF, 6-3 ####[facility] LABCLIA [id number] [place] [id number] [place] Sodium [Moles/Vol] 139 mmol/L Normal 136-144 [facility] Comment on above: Order Comment: Speci men Type: BLOOD SPECIMENOrdering Facility: [facility] Address: [address] [place], [place] [id number] Performed By: #### 2 4323-8, 97849-0, LIPNF, 6-3 ####[facility]CLIA [id number] [address] [address] [place] Urea nitrogen [Mass/Vol] 10 mg/dL Normal 9-24 [facility] Comment on above: Order Comment: Speci men Type: BLOOD SPECIMENOrdering Facility: [facility] Address: [address] [place], [place] [id number] Performed By: #### 2 4323-8, 54997-3, LIPNF, 6-3 ####[facility] LABCLIA [id number] [address] [place] HbA1c (Bld)on 06-16-2024 Average glucose Estimated from glycated hemoglobin (Bld) [Mass/Vol] 183 mg/dL Normal [facility] Comment on above: Order Comment: [place] cash Type: BLOOD SPECIMENOrdering Facility: [facility] Address: [address] [place] [address] Result Comment: eAG: (Estimated average glucose) is a calculated value from HgbA1c and is traffic workforce representative of the average blood glucose level in the last 2-3 month period. Performed By: #### 5 5454-3 ####[facility]IA [id number] [address] [facility] HbA1c (Bld) [Mass fraction] 8.0 % High 4.3-5.6 [facility] Comment on above: Order Comment: [place] cash Type: BLOOD SPECIMENOrdering Facility: [facility] Address: [address] [place] [address] Result Comment: [place] Diabetes Association guidelines indicate that patients with HgbA1c in the range 5.7-6.4% are at increased risk for development of diabetes, and intervention by lifestyle modification may be beneficial. HgbA1c greater or equal to 6.5% is considered diagnostic of diabetes. Performed By: #### 5 5454-3 ####[facility]IA [id number] [place] [address] [place] LIPID PANEL, NONFASTINGon Cholesterol [Mass/Vol] 163 mg/dL Normal <200 [facility] Comment on above: Order Comment: [place] cash Type: BLOOD SPECIMENOrdering Facility: [facility] Address: [address] [place] [address] Result Comment: <200 mg/dL, Desirable 200-239 mg/dL, Borderline high >239 mg/dL, High Performed By: #### 2 4323-8, 32681-2, LIPNF, 3016-3 ####[facility] LABCLIA [id number] [address] [place] HDL CHOLESTEROL, NF 40 mg/dL Normal >39 [facility] Comment on above: Order Comment: Baldomeroi men Type: BLOOD SPECIMENOrdering Facility: [facility] Address: [address] [place] [address] Result Comment: 40-5 9 mg/dL, Acceptable >59 mg/dL, High: Negative risk factor for coronary heart disease <40 mg/dL, Low: Positive risk factor for coronary heart disease Performed By: #### 2 4323-8, 06785-2, LIPNF, 6-3 ####[facility] LABCLIA [id number] [address] OF [facility] LDL CHOLESTEROL, NF 109 mg/dL High <100 [facility] Comment on above: Order Comment: [place] shailesh Type: BLOOD SPECIMENOrdering Facility: [facility] Address: [address] [place] [address] Result Comment: <100 mg/dL, Optimal 100-129 mg/dL, Near optimal/above optimal 130-159 mg/dL, Borderline high 160-189 mg/dL, High >189 mg/dL, Very high Secondary prevention optimal LDL Cholesterol levels are recommended to be < 70 mg/dL Performed By: #### 2 4323-8, 52829-1, LIPNF, 3016-3 ####[facility]CLIA [id number] [address] [place] LDL/HDL RATIO, NF 2.73 mg/dL High <2.54 [facility] Comment on above: Order Comment: Baldomerora cash Type: BLOOD SPECIMENOrdering Facility: [facility] Address: [address] [place] [address] Result Comment: Florentin perez: 1. National Cholesterol Education Program ATP III Guideline At-A-Glance Quick Desk Reference: National Heart, Lung, and Blood [place]. National Institutes of Health. 2001: NIH Publication No. 01-3305. 2. An International Atherosclerosis Society position paper: global recommendations for the management of dyslipidemia: executive summary, Atherosclerosis. 2014: 232(2):410-413. Performed By: #### 2 4323-8, 18706-1, LIPNF, 3016-3 ####[facility] LABCLIA [id number] [place] [address] [place] NON HDL CHOL, NF 123 mg/dL Normal <130 [facility] Comment on above: Order Comment: Speci men Type: BLOOD SPECIMENOrdering Facility: [facility] Address: [address] [place] [address] Result Comment: <130 mg/dL, Optimal 130-159 mg/dL, Near optimal/above optimal 160-189 mg/dL, Borderline high 190-219 mg/dL, High >219 mg/dL, Very high Secondary prevention optimal non HDL Cholesterol levels are recommended to be <100 mg/dL Performed By: #### 2 4323-8, , LIPNF, 3015-3 ####[facility]CLIA [id number] [place] [address] [place] T CHOL/HDL RATIO NF 4.08 mg/dL Normal <5.10 [facility] Comment on above: Order Comment: Speci men Type: BLOOD SPECIMENOrdering Facility: [facility] Address: [address] [place] [address] Performed By: #### 2 432-8, , LIPNF, 3015-3 ####[facility] LABCLIA [id number] [place] [address] [place] TRIGLYCERIDES, NF 71 mg/dL Normal <150 [facility] Comment on above: Order Comment: Speci men Type: BLOOD SPECIMENOrdering Facility: [facility] Address: [address] [place] [address] Result Comment: <150 mg/dL, Normal 150-199 mg/dL, Borderline high 200-499 mg/dL, High >499 mg/dL, Very high Performed By: #### 2 4323-8, , LIPNF, 6-3 ####[facility]CLIA [id number] [place] [address] [place] VLDL CHOLESTEROL, NF 14 mg/dL Normal <30 [facility] Comment on above: Order Comment: Speci men Type: BLOOD SPECIMENOrdering Facility: [facility] Address: [address] [place] [address] Performed By: #### 2 4323-8, 37698-5, LIPNF, 3016-3 ####[facility]IA [id number] [place] [address] [place] Magnesium SerPl-mCncon 06-16 Magnesium [Mass/Vol] 2.1 mg/dL Normal 1.7-2.3 [facility] Comment on above: Order Comment: Speci men Type: BLOOD SPECIMENOrdering Facility: [facility] Address: [address] [place] [address] Performed By: #### 2 4323-8, 32298-2, LIPNF, 6-3 ####[facility] [id number] [place] [address] [place] TSH SerPl-aCncon 06-16-2024 TSH Qn 2.430 m[IU]/L Normal 0.270-4.200 [facility] Comment on above: Order Comment: Speci men Type: BLOOD SPECIMENOrdering Facility: [facility] Address: [address] [place] [address] Performed By: #### 2 4323-8, 85861-5, LIPNF, 6-3 ####[facility] LABIA [id number] [place] [id number] [place] Urinalysis complete panel (U )on 06-16-2024 Bacteria LM.HPF (Urine sed) [#/Area] Negative Normal Negative [facility] Comment on above: Order Comment: Speci men Type: URINE SPECIMEN Ordering Facility: [facility] Address: [address] [place] [address] Performed By: #### 2 4356-8 #### [facility] CLIA [id number] [address] [place] [id number] [place] Bilirubin Ql (U) Negative Normal Negative [facility] Comment on above: Order Comment: Speci men Type: URINE SPECIMEN Ordering Facility: [facility] Address: [address] [place] [address] Performed By: #### 2 4356-8 #### [facility] CLIA [id number] [address] [place] [address] [place] Clarity (Unsp spec) Clear Normal Clear [facility] Comment on above: Order Comment: Speci men Type: URINE SPECIMEN Ordering Facility: [facility] Address: [address] [place] [address] Performed By: #### 2 4356-8 #### [facility] CLIA [id number] [address] [place] [address] [place] Color (U) Yellow Normal Yellow [facility] Comment on above: Order Comment: Speci men Type: URINE SPECIMEN Ordering Facility: [facility] Address: [address] [place] [address] Performed By: #### 2 4356-8 #### [facility] CLIA [id number] [address] [place] [address] [place] Epithelial cells LM.HPF (Urine sed) [#/Area] None Seen Normal [facility] Comment on above: Order Comment: Speci men Type: URINE SPECIMEN Ordering Facility: [facility] Address: [address] [place] [address] Performed By: #### 2 4356-8 #### [facility] CLIA [id number] [address] [place] [address] [place] Glucose Test strip (U) [Mass/Vol] 3+ Abnormal Negative [facility] Comment on above: Order Comment: Speci men Type: URINE SPECIMEN Ordering Facility: [facility] Address: [address] [place] [address] Performed By: #### 2 4356-8 #### [facility] CLIA [id number] [address] [place] [address] [place] Hemoglobin Ql (U) Negative Normal Negative [facility] Comment on above: Order Comment: Speci men Type: URINE SPECIMEN Ordering Facility: [facility] Address: [address] [place] [address] Performed By: #### 2 4356-8 #### [facility] CLIA [id number] [address] [place] [address] [place] Hyaline casts (Urine sed) [#/Area] 0 /[LPF] Normal 0 /LPF [facility] Comment on above: Order Comment: Speci men Type: URINE SPECIMEN Ordering Facility: [facility] Address: [address] [place] [address] Performed By: #### 2 4356-8 #### [facility] CLIA [id number] [address] [place] [address] [place] Ketones Ql (U) Negative Normal Negative [facility] Comment on above: Order Comment: Speci men Type: URINE SPECIMEN Ordering Facility: [facility] Address: [address] [place] [address] Performed By: #### 2 4356-8 #### [facility] CLIA [id number] [address] [place] [address] [place] Leukocyte esterase Test strip Ql (U) Negative Normal Negative [facility] Comment on above: Order Comment: Speci men Type: URINE SPECIMEN Ordering Facility: [facility] Address: [address] [place] [address] Performed By: #### 2 4356-8 #### [facility] CLIA [id number] [address] [place] [address] [place] Nitrite Ql (U) Negative Normal Negative [facility] Comment on above: Order Comment: Speci men Type: URINE SPECIMEN Ordering Facility: [facility] Address: [address] [place] [address] Performed By: #### 2 4356-8 #### [facility] CLIA [id number] [address] [place] [address] [place] pH (U) 6.0 [pH] Normal <8.5 [facility] Comment on above: Order Comment: Speci men Type: URINE SPECIMEN Ordering Facility: [facility] Address: [address] [place] [address] Performed By: #### 2 4356-8 #### [facility] CLIA [id number] [address] [place] [address] [place] Protein (U) [Mass/Vol] Negative Normal Negative [facility] Comment on above: Order Comment: Speci men Type: URINE SPECIMEN Ordering Facility: [facility] Address: [address] [place] [address] Performed By: #### 2 4356-8 #### [facility] CLIA [id number] [address] [place] [address] [place] RBC LM.HPF (Urine sed) [#/Area] 0-2 /HPF Normal 0-2 /HPF [facility] Comment on above: Order Comment: Speci men Type: URINE SPECIMEN Ordering Facility: [facility] Address: [address] [place] [address] Performed By: #### 2 4356-8 #### [facility] CLIA [id number] [address] [place] [address] [place] Specific gravity (U) [Rel density] 1.030 Normal 1.005-1.030 [facility] Comment on above: Order Comment: Speci men Type: URINE SPECIMEN Ordering Facility: [facility] Address: [address] [place] [address] Performed By: #### 2 4356-8 #### [facility] CLIA [id number] [address] [place] [address] [place] Urobilinogen Ql (U) 0.2 EU/dL Normal 0.2-1.0 EU/dL [facility] Comment on above: Order Comment: Speci men Type: URINE SPECIMEN Ordering Facility: [facility] Address: [address] [place] [address] Performed By: #### 2 4356-8 #### [facility] CLIA [id number] [address] [place] [address] [place] WBC LM.HPF (Urine sed) [#/Area] 0-5 /HPF Normal 0-5 /HPF [facility] Comment on above: Order Comment: Speci men Type: URINE SPECIMEN Ordering Facility: [facility] Address: [address] [place] [address] Performed By: #### 2 4356-8 #### [facility] CLIA [id number] [address] [place] [address] [place] Vit B12 [facility] 06-16- 024 Cobalamin (Vitamin B12) [Mass/Vol] 686 pg/mL Normal 232-1245 [facility] Comment on above: Order Comment: Speci men Type: BLOOD SPECIMENOrdering Facility: [facility] Address: [address] [place] [address] Performed By: #### 2 132-9 ####[facility] [id number] [place] [address] [place] CNCOon 12-18-2023 CNCO Letter Text Normal [facility] CNPNon 12-13-2023 CNPN Telephone (FAMPWS) MICHAEL YOUNGBLOOD ([id number]) 1975 M Date Time Provider Department 12/13/23 KRISH AGUILAR FAMPWS During your visit today, we recorded the following information about you: Krish Aguilar MA 12/13/2023 9:14 AM Signed Faxed information/consult to Dr. Seay. Krish Aguilar MA Allergies As of Date: 12/13/2023 (No Known Allergies) Date Reviewed: 12/12/2023 Reviewed by: Darinel Simon MD - Fully Assessed Prescriptions as of 12/13/2023 - clotrimazole (LOTRIMIN) 1 % cream - aspirin 81 mg cap Take 1 tablet by mouth once daily. - DULoxetine (CYMBALTA) 30 mg capsule Take 1 capsule by mouth two times a day. - levothyroxine (LEVOXYL) 25 mcg tablet Take 1 tablet by mouth once daily. Take on empty stomach. For Thyroid - omeprazole (PRILOSEC) 20 mg capsule TAKE 1 CAPSULE BY MOUTH ONCE DAILY 30 MINUTES BEFORE BREAKFAST - lisinopril (ZESTRIL) 5 mg tablet Take 1 tablet by mouth once daily. Decreased by cardio 06/2023 due to low BP and dizziness - atorvastatin (LIPITOR) 40 mg tablet Take 1 tablet by mouth once daily. - insulin glargine (BASAGLAR KWIKPEN U-100 INSULIN) 100 unit/mL (3 mL) Inject 26 Units subcutaneously every morning. Per Endocrine, Dr. Conte - insulin aspart U-100 (NOVOLOG FLEXPEN U-100 INSULIN) 100 unit/mL (3 mL) Inject 18 Units subcutaneously three times daily before meals. And 9 units with snacks. Per Endocrine Dr. Conte - dulaglutide (TRULICITY) 1.5 mg/0.5 mL pen injector Inject 1.5 mg subcutaneously one time a week. Inject once per week. Discard Pen After. Per endo, Dr. Conte - isosorbide mononitrate ER (IMDUR) 60 mg 24 hr tablet Take 1 tablet by mouth once daily. Per [facility] - fluticasone (FLONASE) 50 mcg/actuation nasal spray Use 2 Sprays in each nostril once daily. Rinse mouth after use. - clopidogrel (PLAVIX) 75 mg tablet Take 1 tablet by mouth once daily. Per [facility]. - nitroglycerin sublingual (NITROQUICK) 0.4 mg SL tablet DISSOLVE ONE TABLET UNDER THE TONGUE EVERY 5 MINUTES NEEDED FOR CARDIAC CHEST PAIN - blood sugar diagnostic (BLOOD GLUCOSE TEST) test strip Test blood sugar(s) 2-3 times daily. Dx: Other DM Code E11.3299 Insulin: Yes - Lancets lancets Test blood sugar(s) 2-3 times daily. Dx: Other DM Code E11.3299 Insulin: Yes - Insulin Strang, Disposable, 31 gauge x 1/4 ndle USE ONE PEN NEEDLE PER DOSE 4 times a day, Dx E11.3299 on insulin - blood sugar diagnostic (FREESTYLE LITE STRIPS) test strip USE ONE STRIP TWICE DAILY TO CHECK BLOOD GLUCOSE - lancets (FREESTYLE LANCETS) 28 gauge Test blood sugar(s) 2 times daily. Dx: Uncontrolled Diabetes 250.02. Insulin: No - albuterol HFA (VENTOLIN HFA) 90 mcg/actuation inhaler Inhale 2 Puffs as instructed every 4 hours as needed. - Blood-Glucose Meter (FREESTYLE LITE METER) monitoring kit Use to test blood sugar as directed. Facility-Administered Medications as of 12/13/2023 - perflutren lipid microspheres 1.3 mL in NaCl (PF) 0.9% 10 mL injection (DEFINITY) - sodium chloride 0.9 % (flush) 10 mL (BD POSIFLUSH) Problem List As Of Date 12/13/2023 Noted Resolved Hypertension goal BP (blood pressure) < 140/90 *05/10/2006 Obesity, unspecified [E66.9] 05/10/2006 05/06/2017 Chronic pain of both shoulders [M25.511, G89.29*03/11/2009 Type II or unspecified type diabetes mellitus w*03/29/2009 09/29/2013 Mixed hyperlipidemia [E78.2] 03/29/2009 Carpal tunnel syndrome, bilateral [G56.03] 09/01/2010 05/06/2017 Unspecified gastritis and gastroduodenitis with*09/07/2010 05/06/2017 Panic attack [F41.0] 11/14/2010 Chronic bilateral low back pain with bilateral *01/15/2011 Diabetes mellitus type 2, uncontrolled, without*12/11/2012 05/06/2017 Right flank pain [R10.9] 01/14/2013 05/06/2017 Hematuria [R31.9] 01/14/2013 05/06/2017 History of kidney stones [Z87.442] 01/14/2013 Obesity [E66.9] 01/14/2013 05/06/2017 Allergic rhinitis [J30.9] 03/12/2013 Uncontrolled type 2 diabetes mellitus with comp*09/29/2013 05/06/2017 Type 2 diabetes mellitus with mild nonprolifera*01/09/2016 Cataract of both eyes [H26.9] 01/09/2016 Obesity, Class II, BMI 35-39.9 [E66.9] NIMESH (generalized anxiety disorder) [F41.1] 11/04/2019 GERD without esophagitis [K21.9] 11/04/2019 Marijuana use [F12.90] Neuropathy [G62.9] 11/04/2019 12/12/2023 Well adult exam [Z00.00] 11/04/2019 Plantar fasciitis, left [M72.2] 11/04/2019 12/12/2023 Medication management [Z79.899] 04/21/2021 Coronary artery disease due to lipid rich plaqu*04/27/2021 S/P coronary artery stent placement [Z95.5] 04/27/2021 Acquired hypothyroidism [E03.9] 05/01/2021 Bilateral carotid artery stenosis [I65.23] 05/08/2021 Subclavian artery stenosis, right (HCC) [I77.1] 05/08/2021 Diabetic eye exam (HCC) [Z01.00, E11.9] 01/12/2022 History of non-ST elevation myocardial infarcti*09/03/2022 Abnormal weight gain [R63.5] 12/12/2023 (more content not included)... [facility] MICHA[facility] YOUNGBLOOD ([id number]) 1975 M Date Time Provider Department 12/13/23 DARINEL SIMON During your visit today, we recorded the following information about you: Drainel Simon MD 12/13/2023 3:51 PM Signed Let patient know recent labs were ok except her good Chol is low at 35 and would like to see it up around 50. The best way to increase it is with exercise. Krish Aguilar MA 12/13/2023 4:17 PM Signed Left message for patient to contact office. MASHA Velez Roxanne, MA 12/17/2023 9:48 AM Signed Left message for patient to contact office. MASHA Velez Jazzmin 12/18/2023 1:27 PM Signed 3rd attempt to reach patient with no answer. Left message to contact office. Also sent letter to pt home address informing pt that we have tried contacting him multiple times to relay lab results. Rhonda Pereyra LPN 12/23/2023 11:19 AM Signed Pt calls in and is notified of lab results and provider message. Rhonda Villagomez LPN Allergies As of Date: 12/13/2023 (No Known Allergies) Date Reviewed: 12/12/2023 Reviewed by: Darinel Simon MD - Fully Assessed Reason for Visit: Results [95] Prescriptions as of 12/23/2023 - clotrimazole (LOTRIMIN) 1 % cream - aspirin 81 mg cap Take 1 tablet by mouth once daily. - DULoxetine (CYMBALTA) 30 mg capsule Take 1 capsule by mouth two times a day. - levothyroxine (LEVOXYL) 25 mcg tablet Take 1 tablet by mouth once daily. Take on empty stomach. For Thyroid - omeprazole (PRILOSEC) 20 mg capsule TAKE 1 CAPSULE BY MOUTH ONCE DAILY 30 MINUTES BEFORE BREAKFAST - lisinopril (ZESTRIL) 5 mg tablet Take 1 tablet by mouth once daily. Decreased by cardio 06/2023 due to low BP and dizziness - atorvastatin (LIPITOR) 40 mg tablet Take 1 tablet by mouth once daily. - insulin glargine (BASAGLAR KWIKPEN U-100 INSULIN) 100 unit/mL (3 mL) Inject 26 Units subcutaneously every morning. Per Endocrine, Dr. Conte - insulin aspart U-100 (NOVOLOG FLEXPEN U-100 INSULIN) 100 unit/mL (3 mL) Inject 18 Units subcutaneously three times daily before meals. And 9 units with snacks. Per Endocrine Dr. Conte - dulaglutide (TRULICITY) 1.5 mg/0.5 mL pen injector Inject 1.5 mg subcutaneously one time a week. Inject once per week. Discard Pen After. Per endo, Dr. Cnote - isosorbide mononitrate ER (IMDUR) 60 mg 24 hr tablet Take 1 tablet by mouth once daily. Per [facility] - fluticasone (FLONASE) 50 mcg/actuation nasal spray Use 2 Sprays in each nostril once daily. Rinse mouth after use. - clopidogrel (PLAVIX) 75 mg tablet Take 1 tablet by mouth once daily. Per [facility]. - nitroglycerin sublingual (NITROQUICK) 0.4 mg SL tablet DISSOLVE ONE TABLET UNDER THE TONGUE EVERY 5 MINUTES NEEDED FOR CARDIAC CHEST PAIN - blood sugar diagnostic (BLOOD GLUCOSE TEST) test strip Test blood sugar(s) 2-3 times daily. Dx: Other DM Code E11.3299 Insulin: Yes - Lancets lancets Test blood sugar(s) 2-3 times daily. Dx: Other DM Code E11.3299 Insulin: Yes - Insulin Strang, Disposable, 31 gauge x 1/4 ndle USE ONE PEN NEEDLE PER DOSE 4 times a day, Dx E11.3299 on insulin - blood sugar diagnostic (FREESTYLE LITE STRIPS) test strip USE ONE STRIP TWICE DAILY TO CHECK BLOOD GLUCOSE - lancets (FREESTYLE LANCETS) 28 gauge Test blood sugar(s) 2 times daily. Dx: Uncontrolled Diabetes 250.02. Insulin: No - albuterol HFA (VENTOLIN HFA) 90 mcg/actuation inhaler Inhale 2 Puffs as instructed every 4 hours as needed. - Blood-Glucose Meter (FREESTYLE LITE METER) monitoring kit Use to test blood sugar as directed. Facility-Administered Medications as of 12/23/2023 - perflutren lipid microspheres 1.3 mL in NaCl (PF) 0.9% 10 mL injection (DEFINITY) - sodium chloride 0.9 % (flush) 10 mL (BD POSIFLUSH) Problem List As Of Date 12/13/2023 Noted Resolved Hypertension goal BP (blood pressure) < 140/90 *05/10/2006 Obesity, unspecified [E66.9] 05/10/2006 05/06/2017 Chronic pain of both shoulders [M25.511, G89.29*03/11/2009 Type II or unspecified type diabetes mellitus w*03/29/2009 09/29/2013 Mixed hyperlipidemia [E78.2] 03/29/2009 Carpal tunnel syndrome, bilateral [G56.03] 09/01/2010 05/06/2017 Unspecified gastritis and gastroduodenitis with*09/07/2010 05/06/2017 Panic attack [F41.0] 11/14/2010 Chronic bilateral low back pain with bilateral *01/15/2011 Diabetes mellitus type 2, uncontrolled, without*12/11/2012 05/06/2017 Right flank pain [R10.9] 01/14/2013 05/06/2017 Hematuria [R31.9] 01/14/2013 05/06/2017 History of kidney stones [Z87.442] 01/14/2013 Obesity [E66.9] 01/14/2013 05/06/2017 Allergic rhinitis [J30.9] 03/12/2013 Uncontrolled type 2 diabetes mellitus with comp*09/29/2013 05/06/2017 Type 2 diabetes mellitus with mild nonprolifera*01/09/2016 Cataract of both eyes [H26.9] 01/09/2016 Obesity, Cl (more content not included)... Normal [facility] Basic metabolic 2000 panelon 12-12-2023 Anion gap [Moles/Vol] 9 mmol/L 9 - 18 mmol/L [facility] Calcium [Mass/Vol] 10.1 mg/dL 8.5 - 10.2 mg/dL [facility] Chloride [Moles/Vol] 102 mmol/L 97 - 105 mmol/L [facility] CO2 [Moles/Vol] 28 mmol/L 22 - 30 mmol/L [facility] Creatinine [Mass/Vol] 0.86 mg/dL 0.73 - 1.22 mg/dL [facility] Estimated Glomerular Filtration Rate 107 mL/min/1.73m >=60 mL/min/1.73m [facility] Glucose [Mass/Vol] 138 mg/dL High 74 - 99 mg/dL [facility] Potassium [Moles/Vol] 4.8 mmol/L 3.7 - 5.1 mmol/L [facility] Sodium [Moles/Vol] 139 mmol/L 136 - 144 mmol/L [facility] Urea nitrogen [Mass/Vol] 11 mg/dL 9 - 24 mg/dL [facility] Anion gap [Moles/Vol] 9 mmol/L Normal 9-18 [facility] Comment on above: Order Comment: Speci men Type: BLOOD SPECIMEN Ordering Facility: [facility] Address: [address] [place] [address] Performed By: #### 3 016-3, 36098-8, LIPNF #### [facility] CLIA [id number] [address] [place] [address] [place] Calcium [Mass/Vol] 10.1 mg/dL Normal 8.5-10.2 [facility] Comment on above: Order Comment: Speci men Type: BLOOD SPECIMEN Ordering Facility: [facility] Address: [address] [place] [address] Performed By: #### 3 016-3, 15817-5, LIPNF #### [facility] CLIA [id number] [address] [place] [address] [place] Chloride [Moles/Vol] 102 mmol/L Normal 97-105 [facility] Comment on above: Order Comment: Speci men Type: BLOOD SPECIMEN Ordering Facility: [facility] Address: [address] [place] [address] Performed By: #### 3 016-3, 11898-6, LIPNF #### [facility] CLIA [id number] [address] [place] [address] [place] CO2 [Moles/Vol] 28 mmol/L Normal 22-30 [facility] Comment on above: Order Comment: Speci men Type: BLOOD SPECIMEN Ordering Facility: [facility] Address: [address] [place] [address] Performed By: #### 3 016-3, 19987-9, LIPNF #### [facility] CLIA [id number] [address] [place] [address] [place] Creatinine [Mass/Vol] 0.86 mg/dL Normal 0.73-1.22 [facility] Comment on above: Order Comment: [place] cash Type: BLOOD SPECIMEN Ordering Facility: [facility] Address: [address] [place] [address] Performed By: #### 3 016-3, 83240-2, LIPBRAD #### [facility] CLIA [id number] [address] [place] [address] [place] Creatinine and Glomerular filtration rate.predicted panel (S/P/Bld) 107 mL/min/1.73m??? Normal >=60 [facility] Comment on above: Order Comment: [place] cash Type: BLOOD SPECIMEN Ordering Facility: [facility] Address: [address] [place] [address] Result Comment: Smiley mated Glomerular Filtration Rate (eGFR) is calculated using the 2020 CKD-EPI creatinine equation. This equation utilizes serum creatinine, sex, and age as parameters. The creatinine assay has traceable calibration to isotope dilution-mass spectrometry. Refer to KDIGO guidelines for clinical interpretation. In patients with unstable renal function, e.g. those with acute kidney injury, the eGFR may not accurately reflect actual GFR. Performed By: #### 3 016-3, 09493-7, JIMMY #### [facility] CLIA [id number] [address] [place] [address] [place] Glucose [Mass/Vol] 138 mg/dL High 74-99 [facility] Comment on above: Order Comment: [place] cash Type: BLOOD SPECIMEN Ordering Facility: [facility] Address: [address] [place] [address] Result Comment: The [place] Diabetes Association (ADA) provides guidance for cutoff values for fasting glucose and random glucose. The ADA defines fasting as no caloric intake for at least 8 hours. Fasting plasma glucose results between 100 to 125 mg/dL indicate increased risk for diabetes (prediabetes). Fasting plasma glucose results greater than or equal to 126 mg/dL meet the criteria for diagnosis of diabetes. In the absence of unequivocal hyperglycemia, results should be confirmed by repeat testing. In a patient with classic symptoms of hyperglycemia or hyperglycemic crisis, random plasma glucose results greater than or equal to 200 mg/dL meet the criteria for diagnosis of diabetes. Reference: Standards of Medical Care in Diabetes 2016, [place] Diabetes Association. Diabetes Care. 2016.39(Suppl 1). Performed By: #### 3 016-3, 04878-8, LIPNF #### [facility] CLIA [id number] [address] [place] [address] [place] Potassium [Moles/Vol] 4.8 mmol/L Normal 3.7-5.1 [facility] Comment on above: Order Comment: Speci men Type: BLOOD SPECIMEN Ordering Facility: [facility] Address: [address] [place] [address] Performed By: #### 3 016-3, 68255-8, LIPNF #### [facility] CLIA [id number] [address] [place] [address] [place] Sodium [Moles/Vol] 139 mmol/L Normal 136-144 [facility] Comment on above: Order Comment: Baldomeroi shailesh Type: BLOOD SPECIMEN Ordering Facility: [facility] Address: [address] [place] [address] Performed By: #### 3 016-3, 17875-0, LIPNF #### [facility] CLIA [id number] [address] [place] [address] [place] Urea nitrogen [Mass/Vol] 11 mg/dL Normal 9-24 [facility] Comment on above: Order Comment: Speci men Type: BLOOD SPECIMEN Ordering Facility: [facility] Address: [address] [place] [address] Performed By: #### 3 016-3, 10868-8, LIPNF #### [facility] CLIA [id number] [address] [place] [address] [place] CNOVon 12-12-2023 CNOV Office Visit (FAMPWS ) MICHAEL YOUNGBLOOD ([id number]) 1975 M Date Time Provider Department 12/12/23 10:00 AM DARINEL SIMON During your visit today, we recorded the following information about you: Pulse Blood pressure Weight Height 62/minute 116/78 122 kg 1.78 m Darinel Simon MD 12/12/2023 1:19 PM Signed Chief Complaint Patient presents with: 6 Month Exam HPI Michaeltequila Youngblood is a 48 year old male who presents here today for Above Complaints. and Chronic Medical Conditions.. Patient with hx of DM 2, diabetic retinopathy, NIMESH with panic attacks, HTN, Hyperlipidemia, GERD, obesity, marijuana use as well as those reviewed and addressed below and in ROS. Patient still seeing endo and Cardio. Doing better with his diabetes management. Patient stopped the gabapentin because he did not want to be on meds he could get addicted to and felt it did not help. He was only on 200 mg BID at the time. Patient does continue to smoke marijuana. Past medical history, appointments, medications, allergies reviewed. Previous Medical History PAST MEDICAL HISTORY Diagnosis Date Allergic rhinitis 03/12/2013 Bilateral carotid artery stenosis 05/08/2021 US 04/2021: Right 0-19%, Left 20-40% Cataract of both eyes 01/09/2016 Chronic bilateral low back pain with bilateral sciatica 01/15/2011 Chronic pain of both shoulders 03/11/2009 Coronary artery disease due to lipid rich plaque 04/27/2021 Seeing [facility] Diabetic eye exam (HCC) 01/12/2022 Last done 01/11/22 [facility] NIMESH (generalized anxiety disorder) 11/04/2019 GERD without esophagitis [...] diabetic retinopathy without macular edema (HCC) 01/09/2016 [facility] - . Well adult exam 11/04/2019 Last [...] on File Prior to Visit Medication Sig clotrimazole (LOTRIMIN) 1 % cream omeprazole (PRILOSEC) 20 mg capsule TAKE 1 CAPSULE BY MOUTH ONCE DAILY 30 MINUTES BEFORE BREAKFAST lisinopril (ZESTRIL) 5 mg tablet Take 1 tablet by mouth once daily. Decreased by cardio 06/2023 due to low BP and dizziness aspirin 81 mg cap Take 1 tablet by mouth once daily. levothyroxine (LEVOXYL) 25 mcg tablet Take 1 tablet by mouth once daily. Take on empty stomach. For Thyroid DULoxetine (CYMBALTA) 30 mg capsule Take 1 capsule by mouth once daily. atorvastatin (LIPITOR) 40 [...] once per week. Discard Pen After. Per Dr. Dg morley isosorbide mononitrate ER (IMDUR) 60 mg 24 hr tablet Take 1 tablet by mouth once daily. Per [facility] fluticasone (FLONASE) 50 mcg/actuation nasal spray Use 2 Sprays in each nostril once daily. Rinse mouth after use. clopidogrel (PLAVIX) 75 mg tablet Take 1 tablet by mouth once daily. Per [facility]. nitroglycerin sublingual (NITROQUICK) 0.4 mg SL tablet DISSOLVE ONE TABLET UNDER THE TONGUE EVERY 5 MINUTES NEEDED FOR CARDIAC CHEST PAIN blood sugar diagnostic (BLOOD GLUCOSE TEST) test strip Test bl (more content not included)... Normal [facility] LIPID PANEL, NONFASTINGon Cholesterol [Mass/Vol] 135 mg/dL <200 mg/dL [facility] HDL Cholesterol, Nonfasting 39 mg/dL Low >39 mg/dL [facility] LDL Cholesterol, Nonfasting 85 mg/dL <100 mg/dL [facility] LDL/HDL Ratio, Nonfasting 2.18 mg/dL <2.54 mg/dL [facility] Non HDL Cholesterol, Nonfasting 96 mg/dL <130 mg/dL [facility] Total Chol/HDL Ratio, Nonfasting 3.46 mg/dL <5.10 mg/dL [facility] Triglycerides, Nonfasting 56 mg/dL <150 mg/dL [facility] VLDL Cholesterol, Nonfasting 11 mg/dL <30 mg/dL [facility] Cholesterol [Mass/Vol] 135 mg/dL Normal <200 [facility] Comment on above: Order Comment: Speci men Type: BLOOD SPECIMEN Ordering Facility: [facility] Address: [address] [place] [address] Result Comment: <200 mg/dL, Desirable 200-239 mg/dL, Borderline high >239 mg/dL, High Performed By: #### 3 016-3, 91459-0, LIPNF #### [facility] CLIA [id number] [address] [place], [place] [address] [place] [address] [place] HDL CHOLESTEROL, NF 39 mg/dL Low >39 [facility] Comment on above: Order Comment: Speci men Type: BLOOD SPECIMEN Ordering Facility: [facility] Address: [address] [place] [address] Result Comment: 40-5 9 mg/dL, Acceptable >59 mg/dL, High: Negative risk factor for coronary heart disease <40 mg/dL, Low: Positive risk factor for coronary heart disease Performed By: #### 3 016-3, 28307-5, LIPNF #### [facility] CLIA [id number] [address] [place], [place] [address] [address] LDL CHOLESTEROL, NF 85 mg/dL Normal <100 [facility] Comment on above: Order Comment: Speci shailesh Type: BLOOD SPECIMEN Ordering Facility: [facility] Address: [address] [place] [address] Result Comment: <100 mg/dL, Optimal 100-129 mg/dL, Near optimal/above optimal 130-159 mg/dL, Borderline high 160-189 mg/dL, High >189 mg/dL, Very high Secondary prevention optimal LDL Cholesterol levels are recommended to be < 70 mg/dL Performed By: #### 3 016-3, 08434-1, LIPNF #### [facility] CLIA [id number] [address] [place] [address] [facility] LDL/HDL RATIO, NF 2.18 mg/dL Normal <2.54 [facility] Comment on above: Order Comment: Baldomerora cash Type: BLOOD SPECIMEN Ordering Facility: [facility] Address: [address] [place] [address] Result Comment: Refzamzam connorsce: 1. National Cholesterol Education Program ATP III Guideline At-A-Glance Quick Desk Reference: National Heart, Lung, and Blood [place]. National Institutes of Health. 2001: NIH Publication No. 01-3305. 2. An International Atherosclerosis Society position paper: global recommendations for the management of dyslipidemia: executive summary, Atherosclerosis. 2014: 232(2):410-413. Performed By: #### 3 016-3, 54260-5, LIPNF #### [facility] CLIA [id number] [address] [place], [place] [address] [address] [place] NON HDL CHOL, NF 96 mg/dL Normal <130 [facility] Comment on above: Order Comment: Speci men Type: BLOOD SPECIMEN Ordering Facility: [facility] Address: [address] [place] [address] Result Comment: <130 mg/dL, Optimal 130-159 mg/dL, Near optimal/above optimal 160-189 mg/dL, Borderline high 190-219 mg/dL, High >219 mg/dL, Very high Secondary prevention optimal non HDL Cholesterol levels are recommended to be <100 mg/dL Performed By: #### 3 016-3, 78674-6, LIPNF #### [facility] CLIA [id number] [address] [place] [address] [place] T CHOL/HDL RATIO NF 3.46 mg/dL Normal <5.10 [facility] Comment on above: Order Comment: Speci men Type: BLOOD SPECIMEN Ordering Facility: [facility] Address: [address] [place] [address] Performed By: #### 3 016-3, 22372-5, LIPNF #### [facility] CLIA [id number] [address] [place] [address] [place] TRIGLYCERIDES, NF 56 mg/dL Normal <150 [facility] Comment on above: Order Comment: Speci men Type: BLOOD SPECIMEN Ordering Facility: [facility] Address: [address] [place] [address] Result Comment: <150 mg/dL, Normal 150-199 mg/dL, Borderline high 200-499 mg/dL, High >499 mg/dL, Very high Performed By: #### 3 016-3, 78486-2, LIPNF #### [facility] CLIA [id number] [address] [place] [address] [place] VLDL CHOLESTEROL, NF 11 mg/dL Normal <30 [facility] Comment on above: Order Comment: Speci men Type: BLOOD SPECIMEN Ordering Facility: [facility] Address: [address] [place] [address] Performed By: #### 3 016-3, 16804-2, LIPNF #### [facility] CLIA [id number] [address] [place] [address] [place] TSH BLDon 12-12-2023 TSH Qn 2.550 m[IU]/L 0.270 - 4.200 mIU/L [facility] TSH SerPl-aCncon 12-12-2023 TSH Qn 2.550 m[IU]/L Normal 0.270-4.200 [facility] Comment on above: Order Comment: Speci men Type: BLOOD SPECIMEN Ordering Facility: [facility] Address: [address] [place] [address] Performed By: #### 3 016-3, 98651-3, LIPNF #### [facility] CLIA [id number] [address] [place] [address] [place] Kiran 10-24-2023 [facility] MICHAEL YOUNGBLOOD ([id number]) 1975 M Date Time Provider Department 10/24/23 CLEMENTE CABRERA [facility] During your visit today, we recorded the following information about you: Clemente Cabrera MD 10/24/2023 11:57 AM Signed Urine is not showing any blood. Culture is growing several strains of bacteria in low levels that is likely contamination from the outside and not infection. How feeling? when did he last see blood? Bailey Goodrich, GRISELDA 10/24/2023 12:16 PM Signed Phoned patient and given provider's message below. Patient reports he hasn't seen blood in urine in over 2 months. Reports he sometimes has a little pain with urination, but not much. Reports he gets a little urgency now and then but no frequency. Reports his urine is dark, more so, first thing in the morning, but improves as he gets fluids in him. Reports the odor is stronger in the mornings also like a strong urine smell. No fevers. No other signs and symptoms. Clemente Cabrera MD 10/25/2023 8:44 AM Signed Sounds like just needs to push fluids more. Can recheck urine in one to two weeks unless develops symptoms sooner. Makayla Hernández 10/25/2023 9:32 AM Signed Patient informed and verbalized understanding. Makayla Hernández Allergies As of Date: 10/24/2023 (No Known Allergies) Date Reviewed: 10/22/2023 Reviewed by: Betsey Smith MA - Fully Assessed Reason for Visit: Results [95] Primary Visit Diagnosis:Dysuria [R30.0] Order(s):URINALYSIS, WITH MICROSCOPIC [SQUAWMIC] Order #: [id number] FUTURE URINE CULTURE [SQURCUL] Order #: [id number] FUTURE Prescriptions as of 10/25/2023 - omeprazole (PRILOSEC) 20 mg capsule TAKE 1 CAPSULE BY MOUTH ONCE DAILY 30 MINUTES BEFORE BREAKFAST - lisinopril (ZESTRIL) 5 mg tablet Take 1 tablet by mouth once daily. Decreased by cardio 06/2023 due to low BP and dizziness - aspirin 81 mg cap Take 1 tablet by mouth once daily. - levothyroxine (LEVOXYL) 25 mcg tablet Take 1 tablet by mouth once daily. Take on empty stomach. For Thyroid - DULoxetine (CYMBALTA) 30 mg capsule Take 1 capsule by mouth once daily. - gabapentin (NEURONTIN) 100 mg capsule Take 2 capsules by mouth twice daily for 90 days. - atorvastatin (LIPITOR) 40 mg tablet Take 1 tablet by mouth once daily. - insulin glargine (BASAGLAR KWIKPEN U-100 INSULIN) 100 unit/mL (3 mL) Inject 26 Units subcutaneously every morning. Per Endocrine, Dr. Conte - insulin aspart U-100 (NOVOLOG FLEXPEN U-100 INSULIN) 100 unit/mL (3 mL) Inject 18 Units subcutaneously three times daily before meals. And 9 units with snacks. Per Endocrine Dr. Conte - dulaglutide (TRULICITY) 1.5 mg/0.5 mL pen injector Inject 1.5 mg subcutaneously one time a week. Inject once per week. Discard Pen After. Per endo, Dr. Dg - isosorbide mononitrate ER (IMDUR) 60 mg 24 hr tablet Take 1 tablet by mouth once daily. Per [facility] - fluticasone (FLONASE) 50 mcg/actuation nasal spray Use 2 Sprays in each nostril once daily. Rinse mouth after use. - clopidogrel (PLAVIX) 75 mg tablet Take 1 tablet by mouth once daily. Per [facility]. - nitroglycerin sublingual (NITROQUICK) 0.4 mg SL tablet DISSOLVE ONE TABLET UNDER THE TONGUE EVERY 5 MINUTES NEEDED FOR CARDIAC CHEST PAIN - blood sugar diagnostic (BLOOD GLUCOSE TEST) test strip Test blood sugar(s) 2-3 times daily. Dx: Other DM Code E11.3299 Insulin: Yes - Lancets lancets Test blood sugar(s) 2-3 times daily. Dx: Other DM Code E11.3299 Insulin: Yes - Insulin Strang, Disposable, 31 gauge x 1/4 ndle USE ONE PEN NEEDLE PER DOSE 4 times a day, Dx E11.3299 on insulin - blood sugar diagnostic (FREESTYLE LITE STRIPS) test strip USE ONE STRIP TWICE DAILY TO CHECK BLOOD GLUCOSE - lancets (FREESTYLE LANCETS) 28 gauge Test blood sugar(s) 2 times daily. Dx: Uncontrolled Diabetes 250.02. Insulin: No - albuterol HFA (VENTOLIN HFA) 90 mcg/actuation inhaler Inhale 2 Puffs as instructed every 4 hours as needed. - Blood-Glucose Meter (FREESTYLE LITE METER) monitoring kit Use to test blood sugar as directed. Facility-Administered Medications as of 10/25/2023 - perflutren lipid microspheres 1.3 mL in NaCl (PF) 0.9% 10 mL injection (DEFINITY) - sodium chloride 0.9 % (flush) 10 mL (BD POSIFLUSH) Problem List As Of Date 10/24/2023 Noted Resolved Hypertension goal BP (blood pressure) < 140/90 *05/10/2006 Obesity, unspecified [E66.9] 05/10/2006 05/06/2017 Chronic pain of both shoulders [M25.511, G89.29*03/11/2009 Type II or unspecified type diabetes mellitus w*03/29/2009 09/29/2013 Mixed hyperlipidemia [E78.2] 03/29/2009 Carpal tunnel syndrome, bilateral [G56.03] 09/01/2010 05/06/2017 Unspecified gastritis and gastroduodenitis with*09/07/2010 05/06/2017 Panic attack [F41.0] 11/14/2010 Chronic bilateral low back pain with bilateral *01/15/2011 Diabetes mellitus type 2, (more content not included)... Normal [facility] Bacteria Ur Culton 3 Bacteria identified Cx Nom (U) ORGANISM ID: 1 50,000-<100,000 CFU/ml Escherichia coli ORGANISM ID: 2 10,000 -<50,000 CFU/ml Enterococcus faecalis Insignificant colony count. No further workup. Cephalosporins, clindamycin, and TMP-SMX are not effective for the treatment of enterococcal infections. ORGANISM ID: 1 (ESCHERICHIA COLI) --- ANTIBIOTIC INTERPRETATION SAGAR STATUS REFERENCE RANGE --- Ampicillin S 4 F Susceptible <=8 , Intermediate >8 , Resistant >16 Cefazolin S <=4 F Susceptible 0-16 , Intermediate <0 or >16 , Resistant >16 For uncomplicated urinary tract infections, cefazolin results can be used to predict susceptibility or resistance to cephalexin. Ceftriaxone S <=1 F Susceptible <=1 , Intermediate >1 , Resistant >=4 Cefepime S <=1 F Susceptible <=2 , Susceptible-Dose Dependent >2 , Resistant >=16 Ertapenem S <=0.5 F Susceptible <=0.5 , Intermediate >.5 , Resistant >1 Meropenem S <=0.25 F Susceptible <=1 , Intermediate >1 , Resistant >2 Ampicillin/Sulbact S <=2 F Susceptible <=8 , Intermediate >8 , Resistant >16 Piperacillin/Tazobac S <=4 F Susceptible <=16 , Intermediate >16 , Resistant >64 Gentamicin S <=1 F Susceptible <=4 , Intermediate >4 , Resistant >8 Tobramycin S <=1 F Susceptible <=4 , Intermediate >4 , Resistant >8 Trimeth sulfameth S <=20 F Susceptible <=40 , Resistant >40 Ciprofloxacin S <=0.25 F Susceptible <0.5 , Intermediate >=.5 , Resistant >=1 Nitrofurantoin S <=16 F Susceptible <=32 , Intermediate >32 , Resistant >64 Abnormal [facility] Comment on above: Performed By: #### 2 4356-8 #### [facility] CLIA [id number] [address] [place] [address] OF [facility] Jad 10-22-2023 CNOV [facility] MICHAEL YOUNGBLOOD ([id number]) 1975 M Date Time Provider Department 10/22/23 3:20 PM Bailey DU [facility] During your visit today, we recorded the following information about you: Respiration Blood pressure Weight 16/minute 116/80 123.8 kg Bailey Du PA-C 10/22/2023 6:36 PM Signed 48 year old male with CAD, kidney [...] due to lipid rich plaque 04/27/2021 Seeing [facility] Diabetic eye exam (HCC) 01/12/2022 Last done 01/11/22 [facility] NIMESH (generalized anxiety disorder) 11/04/2019 GERD without esophagitis [...] mild nonproliferative diabetic retinopathy without macular edema ([facility]) 01/09/2016 [facility] - . Well adult exam 11/04/2019 Last [...] Mild Nonproliferative Diabetic Retinopathy Without Macular Edema ([facility]) Cataract of Both Eyes Obesity, Class II, Bmi 35-39.9 Nimesh (Generalized Anxiety Disorder) Gerd Without Esophagitis Marijuana Use Neuropathy Well Adult Exam Plantar Fasciitis, Left Medication Management Coronary Artery Disease Due to Lipid Rich Plaque S/P Coronary Artery Stent Placement Acquired Hypothyroidism Bilateral Carotid Artery Stenosis Subclavian Artery Stenosis, Right ([facility]) Diabetic Eye Exam ([facility]) History of Non-St Elevation Myocardial Infarction (Nstemi) [...] mg tablet Take 1 tablet by mouth on (more content not included)... Normal [facility] Urinalysis complete panel (U )on 10-22-2023 Bacteria LM.HPF (Urine sed) [#/Area] Negative Normal Negative [facility] Comment on above: Order Comment: Speci men Type: URINE SPECIMENOrdering Facility: [facility] Address: [address] [place], [place] [id number] Performed By: #### 2 4356-8 ####[facility] [id number] [place] [address] [place] Bilirubin Ql (U) Negative Normal Negative [facility] Comment on above: Order Comment: Speci men Type: URINE SPECIMENOrdering Facility: [facility] Address: [address] [place] [address] Performed By: #### 2 4356-8 ####[facility] [id number] [place] [address] [place] Clarity (Unsp spec) Clear Normal Clear [facility] Comment on above: Order Comment: Speci men Type: URINE SPECIMENOrdering Facility: [facility] Address: [address] [place] [address] Performed By: #### 2 4356-8 ####[facility] [id number] [place] [address] [place] Color (U) Yellow Normal Yellow [facility] Comment on above: Order Comment: Speci men Type: URINE SPECIMENOrdering Facility: [facility] Address: [address] [place] [address] Performed By: #### 2 4356-8 ####[facility] [id number] [place] [address] [place] Epithelial cells LM.HPF (Urine sed) [#/Area] None Seen Normal [facility] Comment on above: Order Comment: Speci men Type: URINE SPECIMENOrdering Facility: [facility] Address: [address] [place] [address] Performed By: #### 2 4356-8 ####[facility] [id number] [place] [address] [place] Glucose Test strip (U) [Mass/Vol] Negative Normal Negative [facility] Comment on above: Order Comment: Speci men Type: URINE SPECIMENOrdering Facility: [facility] Address: [address] [place] [address] Performed By: #### 2 4356-8 ####[facility] [id number] [place] [address] [place] Hemoglobin Ql (U) Negative Normal Negative [facility] Comment on above: Order Comment: Speci men Type: URINE SPECIMENOrdering Facility: [facility] Address: [address] [place] [address] Performed By: #### 2 4356-8 ####[facility] [id number] [place] [address] [place] Hyaline casts (Urine sed) [#/Area] 0 /[LPF] Normal 0 /LPF [facility] Comment on above: Order Comment: Speci men Type: URINE SPECIMENOrdering Facility: [facility] Address: [address] [place] [address] Performed By: #### 2 4356-8 ####[facility] [id number] [place] [address] [place] Ketones Ql (U) Negative Normal Negative [facility] Comment on above: Order Comment: Speci men Type: URINE SPECIMENOrdering Facility: [facility] Address: [address] [place] [address] Performed By: #### 2 4356-8 ####[facility] [id number] [place] [address] [place] Leukocyte esterase Test strip Ql (U) 3+ Abnormal Negative [facility] Comment on above: Order Comment: Speci men Type: URINE SPECIMENOrdering Facility: [facility] Address: [address] [place] [address] Performed By: #### 2 4356-8 ####[facility] [id number] [place] [address] [place] Nitrite Ql (U) Negative Normal Negative [facility] Comment on above: Order Comment: Speci men Type: URINE SPECIMENOrdering Facility: [facility] Address: [address] [place], [place] [address] Performed By: #### 2 4356-8 ####[facility] [id number] [place] [address] [place] pH (U) 6.0 [pH] Normal <8.5 [facility] Comment on above: Order Comment: Speci men Type: URINE SPECIMENOrdering Facility: [facility] Address: [address] [place] [address] Performed By: #### 2 4356-8 ####[facility] [id number] [place] [address] [place] Protein (U) [Mass/Vol] Negative Normal Negative [facility] Comment on above: Order Comment: Speci men Type: URINE SPECIMENOrdering Facility: [facility] Address: [address] [place] [address] Performed By: #### 2 4356-8 ####[facility] [id number] [place] [address] [place] RBC LM.HPF (Urine sed) [#/Area] 0-2 /HPF Normal 0-2 /HPF [facility] Comment on above: Order Comment: Speci men Type: URINE SPECIMENOrdering Facility: [facility] Address: [address] [place] [address] Performed By: #### 2 4356-8 ####[facility] [id number] [place] [address] [place] Specific gravity (U) [Rel density] 1.009 Normal 1.005-1.030 [facility] Comment on above: Order Comment: Speci men Type: URINE SPECIMENOrdering Facility: [facility] Address: [address] [place] [address] Performed By: #### 2 4356-8 ####[facility] [id number] [place] [address] [place] Urobilinogen Ql (U) 0.2 EU/dL Normal 0.2-1.0 EU/dL [facility] Comment on above: Order Comment: Speci men Type: URINE SPECIMENOrdering Facility: [facility] Address: [place] [address] Performed By: #### 2 4356-8 ####[facility] [id number] [place] [address] [place] WBC LM.HPF (Urine sed) [#/Area] /[HPF] Abnormal 0-5 /HPF [facility] Comment on above: Order Comment: Speci men Type: URINE SPECIMENOrdering Facility: [facility] Address: [place] [address] Performed By: #### 2 4356-8 ####[facility] [id number] [place] [address] [place] HEMOGLOBIN A1C (EXTERNAL)on 09-13-2023 HbA1c (Bld) [Mass fraction] 7.3 % Abnormal 0 - 5.7 % [facility] Kiran 08-20-2023 CNPN Telephone [facility] MICHAEL YOUNGBLOOD ([id number]) 1975 M Date Time Provider Department 08/20/23 DARINEL SIMON [facility] During your visit today, we recorded the following information about you: Ladonna Keller RN 08/20/2023 11:51 AM Signed Patient calling with 2 requests: Requesting refill [...] completed and he did have an infection. Pili treated him with Macrobid for 7 days. Pt asking if he should push fluids/water and see if urine odor improves, or if PCP would be agreeable to placing urine labs for him to have completed now? He is concerned he has another UTI. Please advise patient. Thank you. Darinel Simon MD 08/20/2023 4:51 PM Signed Let patient know that if concerned for a UTI he needs seen. Either in the office or our express care. The following approved medication requests have been transmitted electronically. Requested Prescriptions Signed Prescriptions Disp Refills omeprazole (PRILOSEC) 20 mg capsule 90 capsule 1 Sig: TAKE 1 CAPSULE BY MOUTH ONCE DAILY 30 MINUTES BEFORE BREAKFAST Authorizing Provider: DARINEL SIMON MD James, Roxanne, MA 08/20/2023 5:24 PM Signed Patient notified and voiced understanding. Krish Aguilar MA Allergies As of Date: 08/20/2023 (No Known Allergies) Date Reviewed: 06/11/2023 Reviewed by: Uriah Funes LPN - Fully Assessed Reason for Visit: Medication Request [138] Patient Question [5691] Order(s):omeprazole (PRILOSEC) 20 mg capsuleTAKE 1 CAPSULE BY MOUTH ONCE DAILY 30 MINUTES BEFORE BREAKFASTDisp: 90 capsuleRfl: 1 Prescriptions as of 08/20/2023 - omeprazole (PRILOSEC) 20 mg capsule TAKE 1 CAPSULE BY MOUTH ONCE DAILY 30 MINUTES BEFORE BREAKFAST - lisinopril (ZESTRIL) 5 mg tablet Take 1 tablet by mouth once daily. Decreased by cardio 06/2023 due to low BP and dizziness - aspirin 81 mg cap Take 1 tablet by mouth once daily. - levothyroxine (LEVOXYL) 25 mcg tablet Take 1 tablet by mouth once daily. Take on empty stomach. For Thyroid - DULoxetine (CYMBALTA) 30 mg capsule Take 1 capsule by mouth once daily. - gabapentin (NEURONTIN) 100 mg capsule Take 2 capsules by mouth twice daily for 90 days. - atorvastatin (LIPITOR) 40 mg tablet Take 1 tablet by mouth once daily. - insulin glargine (BASAGLAR KWIKPEN U-100 INSULIN) 100 unit/mL (3 mL) Inject 26 Units subcutaneously every morning. Per Endocrine, Dr. Conte - insulin aspart U-100 (NOVOLOG FLEXPEN U-100 INSULIN) 100 unit/mL (3 mL) Inject 18 Units subcutaneously three times daily before meals. And 9 units with snacks. Per Endocrine Dr. Conte - dulaglutide (TRULICITY) 1.5 mg/0.5 mL pen injector Inject 1.5 mg subcutaneously one time a week. Inject once per week. Discard Pen After. Per endo, Dr. Conte - isosorbide mononitrate ER (IMDUR) 60 mg 24 hr tablet Take 1 tablet by mouth once daily. Per [facility] - fluticasone (FLONASE) 50 mcg/actuation nasal spray Use 2 Sprays in each nostril once daily. Rinse mouth after use. - clopidogrel (PLAVIX) 75 mg tablet Take 1 tablet by mouth once daily. Per [facility]. - nitroglycerin sublingual (NITROQUICK) 0.4 mg SL tablet DISSOLVE ONE TABLET UNDER THE TONGUE EVERY 5 MINUTES NEEDED FOR CARDIAC CHEST PAIN - blood sugar diagnostic (BLOOD GLUCOSE TEST) test strip Test blood sugar(s) 2-3 times daily. Dx: Other DM Code E11.3299 Insulin: Yes - Lancets lancets Test blood sugar(s) 2-3 times daily. Dx: Other DM Code E11.3299 Insulin: Yes - Insulin Strang, Disposable, 31 gauge x 1/4 ndle USE ONE PEN NEEDLE PER DOSE 4 times a day, Dx E11.3299 on insulin - blood sugar diagnostic (FREESTYLE LITE STRIPS) test strip USE ONE STRIP TWICE DAILY TO CHECK BLOOD GLUCOSE - lancets (FREESTYLE LANCETS) 28 gauge Test blood sugar(s) 2 times daily. Dx: Uncontrolled Diabetes 250.02. Insulin: No - albuterol HFA (VENTOLIN HFA) 90 mcg/actuation inhaler Inhale 2 Puffs as instructed every 4 hours as needed. - Blood-Glucose Meter (FREESTYLE LITE METER) monitoring kit Use to test blood sugar as directed. Facility-Administered Medications as of 08/20/2023 - perflutren lipid microspheres 1.3 mL in NaCl (PF) 0.9% 10 mL injection (DEFINITY) - sodium chloride 0.9 % (flush) 10 mL (BD POSIFLUSH) Problem List As Of Date 08/20/2023 Noted Resolved Hypertension goal BP (blood pressure) < 140/90 *05/10/2006 Obesity, unspecified [E66.9] 05/10/2006 05/06/2017 Chronic pain of both shoulders [M25.511, G89.29*03/11/2009 Type II or unspecified type diabetes mellitus w*03/29/2009 09/29/2013 Mixed hyperlipidemia (more content not included)... Normal [facility] ALBUMIN/CREAT RATIO RND URon 06-11-2023 Albumin DL <= 20 mg/L (U) [Mass/Vol] 45.2 mg/L [facility] Albumin/Creatinin e (U) [Mass ratio] 27 mg/g <30 mg/g [facility] Creatinine (U) [Mass/Vol] 165.2 mg/dL 20.0 - 300.0 mg/dL [facility] Comprehensive metabolic 2000 panelon 06-11-2023 Albumin [Mass/Vol] 4.6 g/dL 3.9 - 4.9 g/dL [facility] ALP [Catalytic activity/Vol] 110 U/L 38 - 113 U/L [facility] ALT [Catalytic activity/Vol] 28 U/L 10 - 54 U/L [facility] Anion gap [Moles/Vol] 13 mmol/L 9 - 18 mmol/L [facility] AST [Catalytic activity/Vol] 18 U/L 14 - 40 U/L [facility] Bilirubin [Mass/Vol] 0.6 mg/dL 0.2 - 1.3 mg/dL [facility] Calcium [Mass/Vol] 9.8 mg/dL 8.5 - 10.2 mg/dL [facility] Chloride [Moles/Vol] 105 mmol/L 97 - 105 mmol/L [facility] CO2 [Moles/Vol] 24 mmol/L 22 - 30 mmol/L [facility] Creatinine [Mass/Vol] 0.86 mg/dL 0.73 - 1.22 mg/dL [facility] Estimated Glomerular Filtration Rate 107 mL/min/1.73m >=60 mL/min/1.73m [facility] Glucose [Mass/Vol] 148 mg/dL High 74 - 99 mg/dL [facility] Potassium [Moles/Vol] 4.5 mmol/L 3.7 - 5.1 mmol/L [facility] Protein [Mass/Vol] 7.5 g/dL 6.3 - 8.0 g/dL [facility] Sodium [Moles/Vol] 142 mmol/L 136 - 144 mmol/L [facility] Urea nitrogen [Mass/Vol] 14 mg/dL 9 - 24 mg/dL [facility] LIPID PANEL, NONFASTINGon Cholesterol [Mass/Vol] 127 mg/dL <200 mg/dL [facility] HDL Cholesterol, Nonfasting 35 mg/dL Low >39 mg/dL [facility] LDL Cholesterol, Nonfasting 79 mg/dL <100 mg/dL [facility] LDL/HDL Ratio, Nonfasting 2.26 mg/dL <2.54 mg/dL [facility] Non HDL Cholesterol, Nonfasting 92 mg/dL <130 mg/dL [facility] Total Chol/HDL Ratio, Nonfasting 3.63 mg/dL <5.10 mg/dL [facility] Triglycerides, Nonfasting 65 mg/dL <150 mg/dL [facility] VLDL Cholesterol, Nonfasting 13 mg/dL <30 mg/dL [facility] MAGNESIUM Don 06-11-2023 Magnesium [Mass/Vol] 1.9 mg/dL 1.7 - 2.3 mg/dL [facility] TSH [facility] 06-11-2023 TSH Qn 2.920 m[IU]/L 0.270 - 4.200 mIU/L [facility] Urinalysis complete panel (U )on 06-11-2023 Bilirubin Ql (U) Negative Negative [facility] Clarity (Unsp spec) Clear Clear [facility] Color (U) Light Yellow Yellow [facility] Epithelial cells LM.HPF (Urine sed) [#/Area] Few [facility] Glucose Test strip (U) [Mass/Vol] Negative Trace, Negative [facility] Hemoglobin Ql (U) Negative Negative, Trace [facility] Ketones Ql (U) Negative Trace, Negative [facility] Leukocyte esterase Test strip Ql (U) 250 Usha/uL Abnormal Negative, 25 Usha/uL [facility] Nitrite Ql (U) Negative Negative [facility] pH (U) 6.5 [pH] 5.0 - 8.0 [facility] Protein (U) [Mass/Vol] Trace Trace, Negative [facility] RBC LM.HPF (Urine sed) [#/Area] 0-3 /HPF 0-3 /HPF [facility] Specific gravity (U) [Rel density] 1.026 1.005 - 1.030 [facility] Sperm Present Abnormal None Seen /HPF [facility] Urobilinogen Ql (U) Negative Negative [facility] WBC LM.HPF (Urine sed) [#/Area] 11-25 /HPF Abnormal 0-5 /HPF [facility] HEMOGLOBIN A1C (EXTERNAL)on 05-08-2023 HbA1c (Bld) [Mass fraction] 6.6 % Abnormal 0 - 5.7 % [facility] HEMOGLOBIN A1C (EXTERNAL)on 02-06-2023 HbA1c (Bld) [Mass fraction] 8.7 % Abnormal 0 - 5.7 % [facility] CBC W Auto Differential pane l (Bld)on 12-04-2022 Basophils (Bld) [#/Vol] 0.07 10*3/uL <0.11 k/uL [facility] Basophils/100 WBC (Bld) 0.7 % [facility] Differential cell count method Nom (Bld) Auto [facility] Eosinophils (Bld) [#/Vol] 0.37 10*3/uL <0.46 k/uL [facility] Eosinophils/100 WBC (Bld) 3.8 % [facility] Erythrocyte distribution width (RBC) [Ratio] 12.5 % 11.5 - 15.0 % [facility] Hematocrit (Bld) [Volume fraction] 46.0 % 39.0 - 51.0 % [facility] Hemoglobin (Bld) [Mass/Vol] 15.1 g/dL 13.0 - 17.0 g/dL [facility] Immature granulocytes (Bld) [#/Vol] 0.03 10*3/uL <0.10 k/uL [facility] Immature granulocytes/100 WBC (Bld) 0.3 % [facility] Lymphocytes (Bld) [#/Vol] 2.21 10*3/uL 1.00 - 4.00 k/uL [facility] Lymphocytes/100 WBC (Bld) 22.5 % [facility] MCH (RBC) [Entitic mass] 30.0 pg 26.0 - 34.0 pg [facility] MCHC (RBC) [Mass/Vol] 32.8 g/dL 30.5 - 36.0 g/dL [facility] MCV (RBC) [Entitic vol] 91.5 fL 80.0 - 100.0 fL [facility] Monocytes (Bld) [#/Vol] 0.89 10*3/uL High <0.87 k/uL [facility] Monocytes/100 WBC (Bld) 9.1 % [facility] Neutrophils (Bld) [#/Vol] 6.26 10*3/uL 1.45 - 7.50 k/uL [facility] Neutrophils/100 WBC (Bld) 63.6 % [facility] Nucleated RBC (Bld) [#/Vol] <0.01 k/uL [facility] Nucleated RBC/100 WBC (Bld) [Ratio] 0.0 /100 WBC [facility] Platelet mean volume (Bld) [Entitic vol] 11.2 fL 9.0 - 12.7 fL [facility] Platelets (Bld) [#/Vol] 271 10*3/uL 150 - 400 k/uL [facility] RBC (Bld) [#/Vol] 5.03 10*6/uL 4.20 - 6.0 0 m/uL [facility] WBC (Bld) [#/Vol] 9.83 10*3/uL 3.70 - 11. 00 k/uL [facility] ECHOon 12-04-2022 [facility] LIPID PANEL (OUTSIDE)on Cholesterol [Mass/Vol] 102 mg/dL 200 [facility] Cholesterol in HDL [Mass/Vol] 29 mg/dL Abnormal 40 [facility] Cholesterol in LDL [Mass/Vol] 56 mg/dL 70 [facility] LDL:HDL Ratio [facility] Non-HDL Cholesterol [facility] TC:HDL Ratio [facility] Triglyceride [facility] VLDL Cholesterol [facility] TSH (EXTERNAL)on 08-29-2022 TSH 2.07 IU/ml 0.2 - 5.6 IU/ml [facility] Vital Signs Date Time Vital Sign Value Performing Clinician Akua nair 07-22-2024 11:29-040 Body height 177.8 cm Fanny Reyna APRN.CNP Work Phone: [facility] 07-22-2024 11:29040 Body mass index (BMI) [Ratio] 36.96 kg/m2 Fanny Reyna APRN.CNP Work Phone: [facility] 07-22-2024 11:29-040 Body temperature 97.11 [degF] Fanny Colt INFECTION CONTROL MANAGER.MORTGAGE ANALYST Work Phone: [facility] 07-22-2024 11:29-0400 Body weight 116.85 kg Fanny Colt INFECTION CONTROL MANAGER.MORTGAGE ANALYST Work Phone: [facility] 07-22-2024 11:29-0400 Diastolic blood pressure 80 mm[Hg] Fanny Colt INFECTION CONTROL MANAGER.MORTGAGE ANALYST Work Phone: [facility] 07-22-2024 11:29-0400 Heart rate 70 /min Fanny Colt INFECTION CONTROL MANAGER.MORTGAGE ANALYST Work Phone: [facility] 07-22-2024 11:29-0400 SaO2% (BldA) [Mass fraction] 98 % Fanny Colt INFECTION CONTROL MANAGER.MORTGAGE ANALYST Work Phone: [facility] 07-22-2024 11:29-0400 Systolic blood pressure 117 mm[Hg] Fanny Colt INFECTION CONTROL MANAGER.MORTGAGE ANALYST Work Phone: [facility] 06-30-2024 11:45-0400 Body mass index (BMI) [Ratio] 37.22 kg/m2 Dave Aberu APRN.MORTGAGE ANALYST Work Phone: [facility] 06-30-2024 11:45-0400 Body weight 117.94 kg Dave Abreu APRN.MORTGAGE ANALYST Work Phone: [facility] 06-30-2024 11:45-0400 Diastolic blood pressure 89 mm[Hg] Dave Abreu APRN.MORTGAGE ANALYST Work Phone: [facility] 06-30-2024 11:45-0400 Heart rate 57 /min Dave Abreu APRN.MORTGAGE ANALYST Work Phone: [facility] 06-30-2024 11:45-0400 Respiratory rate 14 /min Dave Abreu APRN.MORTGAGE ANALYST Work Phone: [facility] 06-30-2024 11:45-0400 SaO2% (BldA) [Mass fraction] 99 % Dave Abreu APRN.MORTGAGE ANALYST Work Phone: [facility] 06-30-2024 11:45-0400 Systolic blood pressure 154 mm[Hg] Dave Abreu INFECTION CONTROL MANAGER.MORTGAGE ANALYST Work Phone: [facility] 06-16-2024 10:52-0400 Diastolic blood pressure 75 mm[Hg] Dave Abreu INFECTION CONTROL MANAGER.MORTGAGE ANALYST Work Phone: [facility] 06-16-2024 10:52-0400 Systolic blood pressure 112 mm[Hg] Dave Abreu INFECTION CONTROL MANAGER.MORTGAGE ANALYST Work Phone: [facility] 06-16-2024 10:34-0400 Body mass index (BMI) [Ratio] 37.08 kg/m2 Dave Abreu INFECTION CONTROL MANAGER.MORTGAGE ANALYST Work Phone: [facility] 06-16-2024 10:34-0400 Body weight 117.48 kg Dave Abreu APRN.MORTGAGE ANALYST Work Phone: [facility] 06-16-2024 10:34-0400 Heart rate 59 /min Dave Abreu APRN.MORTGAGE ANALYST Work Phone: [facility] 06-16-2024 10:34-0400 Respiratory rate 16 /min Dave Abreu APRN.MORTGAGE ANALYST Work Phone: [facility] 12-12-2023 09:35-0500 Body height 178 cm Darinel Simon MD Work Phone: [facility] 12-12-2023 09:35-0500 Body weight 122.02 kg Darinel Simon MD Work Phone: [facility] 12-12-2023 09:35-0500 Diastolic blood pressure 78 mm[Hg] Darinel Simon MD Work Phone: [facility] 12-12-2023 09:35-0500 Heart rate 62 /min Darinel Simon MD Work Phone: [facility] 12-12-2023 09:35-0500 Systolic blood pressure 116 mm[Hg] Darinel Simon MD Work Phone: [facility] 06-11-2023 09:40-0400 Body height 178 cm Pili Hatch PA-C Work Phone: [facility] 06-11-2023 09:40-0400 Body temperature 97.81 [degF] Pili Hatch PA-C Work Phone: [facility] 06-11-2023 09:40-0400 Body weight 120.2 kg Pili Hatch PA-C Work Phone: [facility] 06-11-2023 09:40-0400 Diastolic blood pressure 86 mm[Hg] Pili Hatch PA-C Work Phone: [facility] 06-11-2023 09:40-0400 Heart rate 78 /min Pili Hatch PA-C Work Phone: [facility] 06-11-2023 09:40-0400 Respiratory rate 18 /min Pili Hatch PA-C Work Phone: [facility] 06-11-2023 09:40-0400 Systolic blood pressure 126 mm[Hg] Pili Hatch PA-C Work Phone: [facility] 12-25-2022 10:46-0500 Body weight 127.46 kg Pili Hatch PA-C Work Phone: [facility] 12-25-2022 10:46-0500 Diastolic blood pressure 84 mm[Hg] Pili Hatch PA-C Work Phone: [facility] 12-25-2022 10:46-0500 Heart rate 56 /min Pili Hatch PA-C Work Phone: [facility] 12-25-2022 10:46-0500 Respiratory rate 20 /min Pili Hatch PA-C Work Phone: [facility] 12-25-2022 10:46-0500 SaO2% (BldA) [Mass fraction] 97 % Pili Hatch PA-C Work Phone: [facility] 12-25-2022 10:46-0500 Systolic blood pressure 112 mm[Hg] Pili Hatch PA-C Work Phone: [facility] 12-04-2022 09:43-0500 Diastolic blood pressure 92 mm[Hg] Pili Hatch PA-C Work Phone: [facility] 12-04-2022 09:43-0500 Systolic blood pressure 140 mm[Hg] Pili Hatch PA-C Work Phone: [facility] 12-04-2022 09:41-0500 Body weight 129.73 kg Pili Hatch PA-C Work Phone: [facility] 12-04-2022 09:41-0500 Heart rate 67 /min Pili Hatch PA-C Work Phone: [facility] 12-04-2022 09:41-0500 Respiratory rate 16 /min Pili Hatch PA-C Work Phone: [facility] 12-04-2022 09:41-0500 SaO2% (BldA) [Mass fraction] 97 % Pili Hatch PA-C Work Phone: [facility] 09-05-2022 07:57-0500 Body weight 126.55 kg Darinel Simon MD Work Phone: [facility] 09-05-2022 07:57-0500 Diastolic blood pressure 86 mm[Hg] Darinel Simon MD Work Phone: [facility] 09-05-2022 07:57-0500 Heart rate 52 /min Darinel Simon MD Work Phone: [facility] 09-05-2022 07:57-0500 Respiratory rate 16 /min Darinel Simon MD Work Phone: [facility] 09-05-2022 07:57-0500 Systolic blood pressure 128 mm[Hg] Darinel Simon MD Work Phone: [facility] Encounters Encounter Date Encounter Type Care Provider Facility Start: 07-30-2024 End: 07-30-2024 ambulatory [facility] Facility:[facility] Start: 07-22-2024 End: 07-22-2024 ambulatory [facility] Facility:[facility] Start: 07-22-2024 End: 07-22-2024 Patient encounter procedure Fanny Reyna APRN.MORTGAGE ANALYST Work Phone: General Surgery Comment on above: Encounter for screen ing for malignant neoplasm of colon (Primary Dx); Positive colorectal cancer screening using Cologuard test Start: 07-21-2024 End: 07-21-2024 Telephone encounter Dave Abreu APRN.MORTGAGE ANALYST Work Phone: [facility] [place] Comment on above: Results Start: 07-16-2024 End: 07-16-2024 Telephone encounter Dave Abreu APRN.MORTGAGE ANALYST Work Phone: [facility] [place] Comment on above: Results Start: 07-16-2024 End: 07-16-2024 [facility] Facility:[facility] Start: 06-30-2024 End: 06-30-2024 Patient encounter procedure Dave Abreu APRN.MORTGAGE ANALYST Work Phone: [facility] [place] Comment on above: Bacterial sinusitis (Primary Dx); Leukocytosis, unspecified type Start: 06-30-2024 End: 06-30-2024 [facility] Facility:[facility] Start: 06-25-2024 End: 06-30-2024 Telephone encounter Dave Abreu APRN.MORTGAGE ANALYST Work Phone: [facility] Comment on above: Results Start: 06-23-2024 End: 06-23-2024 Telephone encounter Dave Abreu APRN.MORTGAGE ANALYST Work Phone: [facility] [place] Start: 06-23-2024 End: 06-23-2024 [facility] Facility:[facility] Start: 06-18-2024 End: 06-18-2024 Telephone encounter Dave Abreu APRN.MORTGAGE ANALYST Work Phone: [facility] [place] Comment on above: Results Start: 06-16-2024 End: 06-16-2024 Patient encounter procedure Dave Abreu APRN.MORTGAGE ANALYST Work Phone: 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 [place] Comment on above: PT Discharge Summary Start: 04-20-2024 Chart abstracting Darinel bradley MD Work Phone: [facility] [place] Comment on above: Outside [id number] Ordered Start: 03-30-2024 Chart abstracting Krish Aguilar MA [facility] [place] Comment on above: Physical Therapy Start: 03-24-2024 Chart abstracting Darinel bradley MD Work Phone: [facility] [place] Comment on above: Ext / Labs Start: 03-20-2024 Chart abstracting Darinel bradley MD Work Phone: [facility] [place] Start: 03-19-2024 Chart abstracting Darinel bradley MD Work Phone: [facility] [place] Comment on above: Outside [id number] Ordered Start: 03-17-2024 Refill Darinel sweet MD Work Phone: [facility] [place] Comment on above: Refill Request Start: 03-10-2024 Refill Darinel sweet MD Work Phone: [facility] [place] Comment on above: Refill Request Start: 02-25-2024 Chart abstracting Darinel bradley MD Work Phone: [facility] [place] Comment on above: Ext Labs Start: 01-09-2024 Chart abstracting Darinel bradley MD Work Phone: [facility] [place] Comment on above: Outside [id number] Ordered Start: 01-04-2024 Chart abstracting Darinel bradley MD Work Phone: [facility] [place] Comment on above: Outside [id number] Ordered Start: 12-13-2023 Telephone encounter Krish Ladarius FLANAGAN [facility] [place] Comment on above: Results Start: 12-12-2023 Patient encounter status Joshua Simon MD Work Phone: [facility] Work Phone: Start: 12-12-2023 End: 12-12-2023 ambulatory DARINEL SIMON Facility:[facility] Start: 12-12-2023 End: 12-12-2023 Ophthalmic examination and evaluation Darinel Simon MD Work Phone: [facility] Work Phone: Start: 12-12-2023 End: 12-12-2023 Patient encounter procedure Darinel Simon MD Work Phone: [facility] [place] Comment on above: Type 2 diabetes keven itus with mild nonproliferative retinopathy without macular edema, unspecified laterality, unspecified whether snf insulin use (HCC) (Primary Dx); Diabetic eye exam (HCC); Hypertension goal BP (blood pressure) < 140/90; Mixed hyperlipidemia; Acquired hypothyroidism; GERD without esophagitis; Coronary artery disease due to lipid rich plaque; Bilateral carotid artery stenosis; Subclavian artery stenosis, right (HCC); History of non-ST elevation myocardial infarction (NSTEMI); Neuropathy; NIMESH (generalized anxiety disorder); Marijuana use; Obesity, Class II, BMI 35-39.9; Need for vaccination; Arthralgia, unspecified joint; Medication management Start: 12-12-2023 Encounter for genera l adult medical examination without abnormal findings DAVE ABREU [facility] Start: 12-09-2023 Chart abstracting Darinel bradley MD Work Phone: [facility] [place] Start: 10-22-2023 End: 10-22-2023 ambulatory DARINEL SIMON Facility:[facility] Start: 10-04-2023 Chart abstracting Darinel bradley MD Work Phone: [facility] [place] Comment on above: Outside Cardiology Start: 09-12-2023 Chart abstracting Darinel bradley MD Work Phone: [facility] [place] Start: 08-20-2023 Telephone encounter Darinel Simon MD Work Phone: [facility] [place] Comment on above: Medication Request; Patient Question Start: 07-05-2023 Chart abstracting Darinel bradley MD Work Phone: [facility] [place] Comment on above: ext documentation (C deidre OV note) Start: 06-14-2023 Telephone encounter Pili christy PA-C Work Phone: [facility] [place] Comment on above: Results Start: 06-11-2023 End: 06-11-2023 Ophthalmic examination and evaluation Pili Hatch PA-C Work Phone: [facility] Work Phone: Start: 06-11-2023 End: 06-11-2023 Patient encounter procedure Pili Hatch PA-C Work Phone: 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, unspecified laterality, unspecified whether snf insulin use (HCC); Coronary artery disease due to lipid rich plaque; History of non-ST elevation myocardial infarction (NSTEMI); S/P coronary artery stent placement; Subclavian artery stenosis, right (HCC); GERD without esophagitis; Acquired hypothyroidism; NIMESH (generalized anxiety disorder); Diabetic eye exam ([facility]); Gross hematuria; Screening for colon cancer; Medication management; Epigastric pain Start: 06-11-2023 End: 06-11-2023 Patient encounter status Pili Hatch PA-C Work Phone: [facility] Work Phone: Start: 05-28-2023 Cheikh Nascimento Work Phone: [facility] [place] Comment on above: Refill Request Start: 05-28-2023 Refill Darinel sweet MD Work Phone: [facility] [place] Comment on above: Refill Request Start: 05-10-2023 Chart abstracting Darinel bradley MD Work Phone: [facility] [place] Start: 03-04-2023 Refill Darinel sweet MD Work Phone: [facility] [place] Comment on above: Refill Request Start: 02-07-2023 Chart abstracting Darinel bradley MD Work Phone: [facility] [place] Comment on above: Outside Endo Start: 01-24-2023 Chart abstracting Darinel bradley MD Work Phone: [facility] [place] Comment on above: Consult (Cardiology /) Start: 01-03-2023 Chart abstracting Darinel bradley MD Work Phone: [facility] [place] Comment on above: ER F/U ([facility] ) Start: 01-02-2023 Chart abstracting Darinel bradley MD Work Phone: [facility] [place] Comment on above: ER F/U ([facility] ER ) Start: 12-25-2022 End: 12-25-2022 Patient encounter procedure Pili Hatch PA-C Work Phone: [facility] [place] Comment on above: Positional lighthead edness (Primary Dx); Hypertension goal BP (blood pressure) < 140/90; NIMESH (generalized anxiety disorder) Start: 12-05-2022 Telephone encounter Pili christy PA-C Work Phone: [facility] [place] Comment on above: Results Start: 12-04-2022 End: 12-04-2022 Office outpatient visit 40 minutes Pili Hatch PA-C Work Phone: [facility] [place] Comment on above: Positional lighthead edness (Primary Dx); Near syncope; Vertigo; Coronary artery disease due to lipid rich plaque; History of non-ST elevation myocardial infarction (NSTEMI); Hypertension goal BP (blood pressure) < 140/90; Subacute sinusitis, unspecified location Start: 12-03-2022 Refill Darinel sweet MD Work Phone: [facility] [place] Comment on above: Refill Request Start: 11-27-2022 Refill Darinel sweet MD Work Phone: [facility] [place] Comment on above: Refill Request Start: 11-23-2022 Telephone encounter Krish Ladarius FLANAGAN [facility] [place] Comment on above: Patient Update Start: 09-05-2022 End: 09-05-2022 Ophthalmic examination and evaluation Darinel Simon MD Work Phone: [facility] [place] Start: 09-05-2022 End: 09-05-2022 Patient encounter procedure Darinel Simon MD Work Phone: 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 [place] Comment on above: Transition Of Care ( [facility] 08/30/22) Start: 08-27-2022 Refill Darinel sweet MD Work Phone: [facility] [place] Comment on above: Refill Request Start: 05-24-2022 Refill Darinel sweet MD Work Phone: [facility] [place] Comment on above: Refill Request Start: 01-12-2022 Ophthalmic examinati on and evaluation Darinel Simon MD Work Phone: [facility] Start: 11-08-2021 Patient encounter status Joshua Simon MD Work Phone: [facility] Work Phone: Procedures Date Procedure Procedure Detail Performing Clinician Start: 06-16-2024 Adult depression screening assessment Dave Abreu APRN.CNP Work Phone: Start: 12-12-2023 INFLUENZA VACCINE, A GE 6 MO - 64 YR, QUADRIVALENT (AFLURIA, FLULAVAL, FLUZONE) Darinel Simon MD Work Phone: Start: 09-13-2023 Hemoglobin A1c/Hemoglobin.total in Blood [facility] Start: 05-08-2023 Hemoglobin A1c/Hemoglobin.total in Blood [facility] Start: 02-06-2023 Hemoglobin A1c/Hemoglobin.total in Blood [facility] Start: 08-29-2022 Lipid panel [facility] Provid er Start: 08-29-2022 Thyrotropin [Units/volume] in Serum or Plasma [facility] Start: 04-27-2021 History of placement of stent for coronary artery disease S/P coronary artery stent placement Darinel Simon MD Work Phone: History of placement of stent for coronary artery disease S/P coronary artery stent placement Pili Hatch PA-C Work Phone: Plan of Treatment Date Care Activity Detail Author Start: 2040 PNEUMOCOCCAL (3 - PPSV23 if available, else PCV20) PNEUMOCOCCAL (3 - PPSV23 if available, else PCV20) [facility] Start: 2040 PNEUMOCOCCAL (3 - PPSV23 or PCV20) PNEUMOCOCCAL (3 - PPSV23 or PCV20) [facility] Start: 2040 Pneumococcal vaccination [facility] Start: 04-29-2029 Urine microalbumin profile [facility] Start: 07-14-2027 Screening for malign ant neoplasm of colon [facility] Start: 06-30-2025 Annual PCP Team Facility Assistant mehdi Disease Visit Annual PCP Team Chronic Disease Visit [facility] Start: 06-16-2025 Annual PCP Team Facility Assistant mehdi Disease Visit Annual PCP Team Chronic Disease Visit [facility] Start: 06-16-2025 BP Controlled (<130/80) BP Controlle d (<130/80) [facility] Start: 06-16-2025 Depression Screening Depression Scre ening [facility] Start: 06-16-2025 Diabetic foot examination Diabetic Foot Exam [facility] Start: 06-16-2025 Hepatitis B screening Urine Al bumin:Creatinine Ratio [facility] Start: 06-16-2025 Hepatitis B surface antibody level LDL Cholesterol [facility] Start: 12-18-2024 End: 12-18-2024 Patient encounter procedure 12/18/2024 11:20 AM EST Office Visit [facility] [place] [address] [place], [place] [id number] Darinel Simon MD [address] [place], [place] [id number] 6 month follow up [facility] [place] Comment on above: 6 month follow up Start: 12-12-2024 Annual PCP Team Facility Assistant mehdi Disease Visit Annual PCP Team Chronic Disease Visit [facility] Start: 12-12-2024 BP Controlled (<130/80) BP Controlle d (<130/80) [facility] Start: 12-12-2024 Covid-19 Vaccine () Covid-19 Vaccine () [facility] Comment on above: Postponed from 06/28 (Declined at this time) Start: 12-12-2024 Hepatitis B surface antibody level LDL Cholesterol [facility] Start: 10-27-2024 Behavioral Health Screening Behavioral Health Screening [facility] Comment on above: Postponed from 10/28 (Declined at this time) Start: 10-27-2024 Depression Assessment Depression Ass essment [facility] Comment on above: Postponed from 10/28 (Declined at this time) Start: 10-22-2024 Annual PCP Team Facility Assistant mehdi Disease Visit Annual PCP Team Chronic Disease Visit [facility] Start: 09-16-2024 Hemoglobin A1c measurement HbA1C [facility] Start: 07-30-2024 End: 07-30-2024 Patient encounter procedure 07/30/2024 2:15 PM EDT Appointment LD SURGERY [address] [facility] [place] [address] Priscila Tarango MD [address] [place] [id number] colon/egd - cardiac clearance sent to [facility] Comment on above: colon/egd - cardiac clearance sent to [facility] Start: 07-22-2024 End: 07-22-2024 Patient encounter procedure 07/22/2024 11:30 AM EDT Office Visit General Surgery [address] [place] [address] Fanny Reyna APRN.MORTGAGE ANALYST [address] [place] [address] Positive Cologuard test 07/14/24 General Surgery Comment on above: Positive Cologuard t est 07/14/24 Start: 07-14-2024 End: 10-13-2024 CBC W Auto Differential panel - Blood COMPLETE BLOOD COUNT AND DIFFERENTIAL Lab Routine Leukocytosis, unspecified type Expected: 07/14/2024, Expires: 10/13/2024 [facility] Work Phone: Comment on above: Expected: 07/14/2024 , Expires: 10/13/2024 Start: 06-28-2024 Covid-19 Vaccine ( season) Covid-19 Vaccine ( season) [facility] Start: 06-28-2024 Covid-19 Vaccine ( season) Covid-19 Vaccine ( season) [facility] Start: 06-28-2024 Influenza vaccination Influenza Vacc ine (#1) [facility] Start: 06-11-2024 3 comp foot exam completed DIABETIC FOOT EXAM [facility] Start: 06-11-2024 ANNUAL PCP TEAM EPIC [facility] DISEASE VISIT ANNUAL PCP TEAM CHRONIC DISEASE VISIT [facility] Start: 06-11-2024 Diabetic foot examination Diabetic Foot Exam [facility] Start: 06-11-2024 Hepatitis B screening URINE AL BUMIN:CREATININE RATIO [facility] Start: 06-11-2024 Hepatitis B surface antibody level LDL CHOLESTEROL [facility] Start: 06-11-2024 End: 06-11-2024 Patient encounter procedure 06/11/2024 11:40 AM EDT Office Visit Family Medicine [place] [id number] [facility] [place] [place] [address] Dave Abreu APRN.MORTGAGE ANALYST [address] [place] [address] Physical [facility] [place] Comment on above: Physical Start: 05-29-2024 End: 08-28-2024 ALBUMIN/CREAT RATIO RND UR ALBUMIN/CREAT RATIO RND UR Lab Routine 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, unspecified laterality, unspecified whether snf insulin use (HCC) Expected: 05/29/2024, Expires: 08/28/2024 [facility] Work Phone: Comment on above: Expected: 05/29/2024 , Expires: 08/28/2024 Start: 05-29-2024 End: 08-28-2024 CBC W Auto Differential panel - Blood CBC + DIFF Lab Routine 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, unspecified laterality, unspecified whether snf insulin use (HCC) Acquired hypothyroidism Expected: 05/29/2024, Expires: 08/28/2024 [facility] Work Phone: Comment on above: Expected: 05/29/2024 , Expires: 08/28/2024 Start: 05-29-2024 End: 08-28-2024 Cobalamin (Vitamin B12) [Mass/volume] in Serum or Plasma VITAMIN B12 BLOOD Lab Routine GERD without esophagitis Medication management Expected: 05/29/2024, Expires: 08/28/2024 [facility] Work Phone: Comment on above: Expected: 05/29/2024 , Expires: 08/28/2024 Start: 05-29-2024 End: 08-28-2024 Comprehensive metabolic 2000 panel - Serum or Plasma COMP METABOLIC PANEL Lab Routine 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, unspecified laterality, unspecified whether long term care pharmacist insulin use (HCC) Hypertension goal BP (blood pressure) < 140/90 Mixed hyperlipidemia Expected: 05/29/2024, Expires: 08/28/2024 [facility] Work Phone: Comment on above: Expected: 05/29/2024 , Expires: 08/28/2024 Start: 05-29-2024 End: 08-28-2024 Hemoglobin A1c in Blood HGB A1C Lab Routine 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, unspecified laterality, unspecified whether snf insulin use (HCC) Expected: 05/29/2024, Expires: 08/28/2024 [facility] Work Phone: Comment on above: Expected: 05/29/2024 , Expires: 08/28/2024 Start: 05-29-2024 End: 08-28-2024 LIPID PANEL, NONFASTING LIPID PANEL, NONFASTING Lab Routine 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, unspecified laterality, unspecified whether snf insulin use (HCC) Hypertension goal BP (blood pressure) < 140/90 Mixed hyperlipidemia Coronary artery disease due to lipid rich plaque Bilateral carotid artery stenosis Subclavian artery stenosis, right (HCC) Expected: 05/29/2024, Expires: 08/28/2024 [facility] Work Phone: Comment on above: Expected: 05/29/2024 , Expires: 08/28/2024 Start: 05-29-2024 End: 08-28-2024 Magnesium [Mass/volume] in Serum or Plasma MAGNESIUM BLD Lab Routine GERD without esophagitis Medication management Expected: 05/29/2024, Expires: 08/28/2024 [facility] Work Phone: Comment on above: Expected: 05/29/2024 , Expires: 08/28/2024 Start: 05-29-2024 End: 08-28-2024 Thyrotropin [Units/volume] in Serum or Plasma TSH BLD Lab Routine Acquired hypothyroidism Expected: 05/29/2024, Expires: 08/28/2024 [facility] Work Phone: Comment on above: Expected: 05/29/2024 , Expires: 08/28/2024 Start: 05-29-2024 End: 08-28-2024 Urinalysis complete panel - Urine URINALYSIS, WITH MICROSCOPIC Lab Routine 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, unspecified laterality, unspecified whether long term care pharmacist insulin use (HCC) Hypertension goal BP (blood pressure) < 140/90 Mixed hyperlipidemia Expected: 05/29/2024, Expires: 08/28/2024 [facility] Work Phone: Comment on above: Expected: 05/29/2024 , Expires: 08/28/2024 Start: 03-13-2024 Hemoglobin A1c measurement HbA1C [facility] Start: 03-13-2024 Hemoglobin A1c/Hemoglobin.total in Blood HbA1C [facility] Start: 12-25-2023 ANNUAL PCP TEAM EPIC [facility] DISEASE VISIT ANNUAL PCP TEAM CHRONIC DISEASE VISIT [facility] Start: 12-04-2023 ANNUAL PCP TEAM EPIC [facility] DISEASE VISIT ANNUAL PCP TEAM CHRONIC DISEASE VISIT [facility] Start: 11-08-2023 Hemoglobin A1c/Hemoglobin.total in Blood HBA1C [facility] Start: 10-28-2023 Depression Assessment Depression Ass essment [facility] Start: 09-05-2023 ANNUAL PCP TEAM EP[facility] DISEASE VISIT ANNUAL PCP TEAM CHRONIC DISEASE VISIT [facility] Start: 09-05-2023 BP CONTROLLED (<130/80) BP CONTROLLE D (<130/80) [facility] Start: 09-05-2023 COVID-19 VACCINE (2 - Booster for Maricel series) COVID-19 VACCINE (2 - Booster for Maricel series) [facility] Comment on above: Postponed from 06/16 (Declined at this time) Start: 08-29-2023 Hepatitis B surface antibody level LDL CHOLESTEROL [facility] Start: 06-28-2023 End: 08-28-2023 Bacteria identified in Urine by Culture URINE CULTURE Microbiology Routine Recurrent UTI (urinary tract infection) Expected: 06/28/2023, Expires: 08/28/2023 [facility] Work Phone: Comment on above: Expected: 06/28/2023 , Expires: 08/28/2023 Start: 06-28-2023 Covid-19 Vaccine () Covid-19 Vaccine () [facility] Start: 06-28-2023 Influenza vaccination [facility] Start: 06-28-2023 End: 08-28-2023 Urinalysis complete panel - Urine URINALYSIS, WITH MICROSCOPIC Lab Routine Recurrent UTI (urinary tract infection) Expected: 06/28/2023, Expires: 08/28/2023 [facility] Work Phone: Comment on above: Expected: 06/28/2023 , Expires: 08/28/2023 Start: 06-11-2023 End: 08-11-2023 Bacteria identified in Urine by Culture [facility] Work Phone: Comment on above: Expected: 06/11/2023 , Expires: 08/11/2023 Start: 05-08-2023 Hemoglobin A1c/Hemoglobin.total in Blood HBA1C [facility] Start: 04-26-2023 Influenza vaccination INFLUENZA (#1) [facility] Comment on above: Postponed from 06/28 (Declined at this time) Start: 02-22-2023 End: 04-24-2023 ALBUMIN/CREAT RATIO RND UR ALBUMIN/CREAT RATIO RND UR Lab Routine 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, unspecified laterality, unspecified whether long term care pharmacist insulin use (HCC) Expected: 02/22/2023, Expires: 04/24/2023 [facility] Work Phone: Comment on above: Expected: 02/22/2023 , Expires: 04/24/2023 Start: 02-22-2023 End: 04-24-2023 CBC W Auto Differential panel - Blood CBC + DIFF Lab Routine 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, unspecified laterality, unspecified whether long term care pharmacist insulin use (HCC) Expected: 02/22/2023, Expires: 04/24/2023 [facility] Work Phone: Comment on above: Expected: 02/22/2023 , Expires: 04/24/2023 Start: 02-22-2023 End: 04-24-2023 Cobalamin (Vitamin B12) [Mass/volume] in Serum or Plasma VITAMIN B12 BLOOD Lab Routine GERD without esophagitis Medication management Expected: 02/22/2023, Expires: 04/24/2023 [facility] Work Phone: Comment on above: Expected: 02/22/2023 , Expires: 04/24/2023 Start: 02-22-2023 End: 04-24-2023 Comprehensive metabolic 2000 panel - Serum or Plasma COMP METABOLIC PANEL Lab Routine 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, unspecified laterality, unspecified whether long term care pharmacist insulin use (HCC) Hypertension goal BP (blood pressure) < 140/90 Mixed hyperlipidemia Expected: 02/22/2023, Expires: 04/24/2023 [facility] Work Phone: Comment on above: Expected: 02/22/2023 , Expires: 04/24/2023 Start: 02-22-2023 End: 04-24-2023 Hemoglobin A1c in Blood HGB A1C Lab Routine 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, unspecified laterality, unspecified whether long term care pharmacist insulin use (HCC) Expected: 02/22/2023, Expires: 04/24/2023 [facility] Work Phone: Comment on above: Expected: 02/22/2023 , Expires: 04/24/2023 Start: 02-22-2023 End: 04-24-2023 LIPID PANEL, NONFASTING LIPID PANEL, NONFASTING Lab Routine 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, unspecified laterality, unspecified whether long term care pharmacist insulin use (HCC) Hypertension goal BP (blood pressure) < 140/90 Mixed hyperlipidemia Bilateral carotid artery stenosis Subclavian artery stenosis, right (HCC) Coronary artery disease due to lipid rich plaque Expected: 02/22/2023, Expires: 04/24/2023 [facility] Work Phone: Comment on above: Expected: 02/22/2023 , Expires: 04/24/2023 Start: 02-22-2023 End: 04-24-2023 Magnesium [Mass/volume] in Serum or Plasma MAGNESIUM BLD Lab Routine GERD without esophagitis Medication management Expected: 02/22/2023, Expires: 04/24/2023 [facility] Work Phone: Comment on above: Expected: 02/22/2023 , Expires: 04/24/2023 Start: 02-22-2023 End: 04-24-2023 Thyrotropin [Units/volume] in Serum or Plasma TSH BLD Lab Routine Acquired hypothyroidism Expected: 02/22/2023, Expires: 04/24/2023 [facility] Work Phone: Comment on above: Expected: 02/22/2023 , Expires: 04/24/2023 Start: 02-22-2023 End: 04-24-2023 Urinalysis complete panel - Urine URINALYSIS, WITH MICROSCOPIC Lab Routine 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, unspecified laterality, unspecified whether long term care pharmacist insulin use (HCC) Hypertension goal BP (blood pressure) < 140/90 Mixed hyperlipidemia Expected: 02/22/2023, Expires: 04/24/2023 [facility] Work Phone: Comment on above: Expected: 02/22/2023 , Expires: 04/24/2023 Start: 01-11-2023 Glaucoma screening Dilated Retinal E xam [facility] Start: 01-11-2023 Hepatitis C antibody , confirmatory test DILATED RETINAL EXAM [facility] Start: 12-04-2022 End: 02-03-2023 Comprehensive metabolic 2000 panel - Serum or Plasma [facility] Work Phone: Comment on above: Expected: 12/04/2022 , Expires: 02/03/2023 Start: 12-04-2022 End: 02-03-2023 Thyrotropin [Units/volume] in Serum or Plasma [facility] Work Phone: Comment on above: Expected: 12/04/2022 , Expires: 02/03/2023 Start: 11-08-2022 3 comp foot exam completed DIABETIC FOOT EXAM [facility] Start: 11-08-2022 ANNUAL PCP TEAM EP[facility] DISEASE VISIT ANNUAL PCP TEAM CHRONIC DISEASE VISIT [facility] Start: 11-08-2022 COLORECTAL CANCER SCREENING COLORECTAL CANCER SCREENING [facility] Comment on above: Postponed from 07/15 (Declined at this time) Start: 11-08-2022 Hepatitis B surface antibody level LDL CHOLESTEROL [facility] Start: 10-28-2022 DEPRESSION ASSESSMENT DEPRESSION ASS ESSMENT [facility] Start: 06-28-2022 Influenza vaccination INFLUENZA (#1) [facility] Start: 05-08-2022 Hemoglobin A1c/Hemoglobin.total in Blood HBA1C [facility] Start: 04-21-2022 BP CONTROLLED (<130/80) BP CONTROLLE D (<130/80) [facility] Start: 10-28-2021 DEPRESSION ASSESSMENT DEPRESSION ASS ESSMENT [facility] Start: 06-16-2021 COVID-19 VACCINE (2 - Booster for Maricel series) COVID-19 VACCINE (2 - Booster for Maricel series) [facility] Start: 2020 COLOGUARD (FIT-DNA) COLOGUARD (FIT-D NA) [facility] Start: 2020 Colonoscopy COLONOSCOPY [facility] Start: 2020 COLORECTAL CANCER SCREENING COLORECTAL CANCER SCREENING [facility] Start: [address] COLONOGRAPHY [facility] Start: 2020 FECAL OCCULT BLOOD FECAL OCCULT BLOO D [facility] Start: 2020 Screening for malign ant neoplasm of colon [facility] Start: 2020 SIGMOIDOSCOPY SIGMOIDOSCOPY [facility] Start: 1994 HEPATITIS B (1 of 3 - Risk 3-dose series) HEPATITIS B (1 of 3 - Risk 3-dose series) [facility] Start: 1975 HEPATITIS B (1 of 3 - 3-dose series) HEPATITIS B (1 of 3 - 3-dose series) [facility] COLOGUARD COLOGUARD Lab Ro utine Screening for colon cancer Ordered: 06/16/2024 [facility] Work Phone: Comment on above: Ordered: 06/16/2024 End: 07-22-2025 EGD DIAGNOSTIC EGD DIAGNOSTIC Endoscopy Routine Positive colorectal cancer screening using Cologuard test 1 Occurrences starting 07/22/2024 until 07/22/2025 [facility] Comment on above: 1 Occurrences starti ng 07/22/2024 until 07/22/2025 End: 07-22-2025 Flexible sigmoidoscopy study COLONOSCOPY DIAGNOSTIC Endoscopy Routine Positive colorectal cancer screening using Cologuard test Encounter for screening for malignant neoplasm of colon 1 Occurrences starting 07/22/2024 until 07/22/2025 [facility] Work Phone: Comment on above: 1 Occurrences starti ng 07/22/2024 until 07/22/2025 End: 09-05-2023 US CAROTID ARTERIES [facility] US CAROTID ARTERIES [facility] Vascular Lab Routine Bilateral carotid artery stenosis 1 Occurrences starting 09/05/2022 until 09/05/2023 [facility] Work Phone: Comment on above: 1 Occurrences starti ng 09/05/2022 until 09/05/2023 End: 12-04-2023 US CAROTID ARTERIES [facility] US CAROTID ARTERIES [facility] Vascular Lab Routine Positional lightheadedness Near syncope Coronary artery disease due to lipid rich plaque History of non-ST elevation myocardial infarction (NSTEMI) Hypertension goal BP (blood pressure) < 140/90 1 Occurrences starting 12/04/2022 until 12/04/2023 [facility] Work Phone: Comment on above: 1 Occurrences starti ng 12/04/2022 until 12/04/2023 End: 07-10-2024 US KIDNEY/BLADDER US KIDNEY/BLADDER Radiology Routine Gross hematuria 1 Occurrences starting 06/11/2023 until 07/10/2024 [facility] Work Phone: Comment on above: 1 Occurrences starti ng 06/11/2023 until 07/10/2024 [facility] Immunizations Immunization Date Immunization Notes Care Provider [facility] 12-12-2023 influenza, injectabl e, quadrivalent, contains preservative Darinel Simon MD Work Phone: [facility] 12-12-2023 influenza virus vacc ine, unspecified formulation Dave Abreu APRN.CNP Work Phone: [facility] 11-08-2021 influenza, injectabl e, quadrivalent, contains preservative Darinel Simon MD Work Phone: [facility] 11-08-2021 influenza virus vacc ine, unspecified formulation Darinel Simon MD Work Phone: [facility] 04-21-2021 COVID-19 vaccine (MARICEL) Darinel Simon MD Work Phone: [facility] 04-21-2021 pneumococcal polysaccharide vaccine, 23 valent Darinel Simon MD Work Phone: [facility] Work Phone: 11-30-2020 influenza, injectabl e, quadrivalent, contains preservative Darinel Simon MD Work Phone: [facility] 11-04-2019 pneumococcal conjuga te vaccine, 13 valent Darinel Simon MD Work Phone: [facility] 08-13-2019 influenza, seasonal, injectable Darinel Simon MD Work Phone: [facility] 04-29-2019 tetanus toxoid, redu deisy diphtheria toxoid, and acellular pertussis vaccine, adsorbed Darinel Simon MD Work Phone: [facility] Work Phone: 09-11-2018 influenza, injectabl e, quadrivalent, preservative free Darinel Simon MD Work Phone: [facility] 09-21-2015 influenza, injectabl e, quadrivalent, contains preservative Darinel Simon MD Work Phone: [facility] 09-21-2015 influenza, seasonal, injectable Darinel Simon MD Work Phone: [facility] 09-29-2013 influenza virus vacc ine, unspecified formulation Darinel Simon MD Work Phone: [facility] 09-27-2013 influenza, seasonal, injectable, preservative free Darinel Simon MD Work Phone: [facility] 09-10-2012 influenza virus vacc ine, unspecified formulation Darinel Smion MD Work Phone: [facility] Work Phone: 11-22-2009 pneumococcal polysaccharide vaccine, 23 valent Darinel Simon MD Work Phone: [facility] Work Phone: 01-26-2008 tetanus toxoid, redu deisy diphtheria toxoid, and acellular pertussis vaccine, adsorbed Darinel Simon MD Work Phone: [facility] Work Phone: Payers Date Payer Category Payer Medicaid [id number] 2018 Medicaid [employer] [facility] [id number] 2018-Present [phone] [address] [place] [address] Medicaid [id number] 2018 Medicaid [id number] Social History Date Type Detail Facility Start: 01-06-2013 End: 04-12-2023 Tobacco smoking status NHIS Never smoked tobacco [facility] Start: 11-08-2021 End: 07-22-2024 Alcohol intake Current non-drinker of alcohol (finding) [facility] Start: 1975 Sex Assigned At Not on file [facility] Start: 01-06-2013 End: 04-12-2023 Tobacco use and exposure Former smokeless tobacco user [facility] Start: 08-26-2022 End: 09-05-2022 Exposure to SARS-CoV-2 (event) Not sure [facility] End: 10-28-1994 History of tobacco use Chews Tobacco [facility] Start: 03-15-2023 End: 04-12-2023 History of Social function [facility] Work Phone: Start: 03-15-2023 End: 04-12-2023 Tobacco use panel [facility] Work Phone: Adult Depression Screening Assessment 6 [facility] Work Phone: Medical Equipment Procedure Code Equipment Code Equipment Original Text Equipment Identifier Dates Stent Uret 6fr 26cm W/O Gw - [id number] Start: 02-18-2013 Comment on above: Description: Polaris Ultra [id number], [id number], [id number], [id number], [id number], [id number] Start: 04-16-2020 End: 03-17-2024 Comment on above: Test blood sugar(s) 2-3 times daily. Dx: Other DM Code E11.3299 Insulin: Yes USE ONE STRIP TWICE DAILY TO CHECK BLOOD GLUCOSE USE ONE PEN NEEDLE P ER DOSE 4 times a day, Dx E11.3299 on insulin Test blood sugar(s) 2 times daily. Dx: Uncontrolled Diabetes 250.02. Insulin: No Clinical Notes 09-29-2013 to 07-30-2024 Tiffanie Piña RN - 07/22/2024 12:13 PM Tiffanie Collazo RN - 07/22/2024 12:13 PM Fanny Woodruff APRN.MORTGAGE ANALYST - 07/22/2024 11:30 AM AARONTDave Abreu APRN.MORTGAGE ANALYST - 06/30/2024 11:52 AM EDT Note Date & Type Note Facility 07-30-2024 Note HNO ID: [id number] Author: REGIS CLEMENTS RN Service: Nursing Author Type: Registered Nurse Type: Nursing Progress Note Filed: 07/30/2024 11:11 Note Text: Patient education completed with patient. Ready for procedure. [facility] 07-22-2024 Nurse Note This Nurse reviewed and provided patient with copy of written instructions. The patient verbalized understanding and was given a number for questions. Pt was educated on holding Jardiance x 3 days, contacting PCP in regards to insulin management, and told this office would notify him concerning plavix.Tiffanie Piña RN [facility] 07-22-2024 Nurse Note This Nurse reviewed and provided patient with copy of written instructions. The patient verbalized understanding and was given a number for questions. Pt was educated on holding Jardiance x 3 days, contacting PCP in regards to insulin management, and told this office would notify him concerning plavix.Tiffanie Piña RN documented in this encounter [facility] 07-22-2024 History of Presen t illness Narrative HISTORY AND PHYSICAL Michael Youngblood : 1975 REFERRING PHYSICIAN: Dave Abreu [address] [id number] CHIEF COMPLAINT: Patient presents with: Consult: Colonoscopy consultation, positive Cologuard. HPI: Michael is a 49 year old male referred for endoscopy. Michael notes positive Cologuard test. Michael denies abdominal pain.. Michael denies diarrhea. Michael denies constipation. Michael denies a change in bowel habits. Michael denies melena. Michael notes bright red blood per rectum. Refers when he completed Cologuard he had strained for awhile to have BM and noted BRB on TP. Michael notes hemorrhoids. Michael notes heartburn. Takes omeprazole 20mg daily with good control. +increased gas/ feeling like burps are stuck in chest. Michael denies dysphagia. Michael denies a history of ulcers/ peptic ulcer disease. Notes family history of colon issues.-maternal uncle with colon cancer Michael has a hx of NSTEMI with 2 stent placements in 2020 and 2021. Most recent cardiac cath of 2022 showed [place] CAD with patent stents. Currently on 81mg ASA & plavix. Last OV with [facility] 04/07/24. Last stress test 03/31/24 with no signs of ischemia or arrhythmias, EF of 59%. Denies CP, dizziness, palpitations, syncope, edema, recent hospitalizations Michael has not undergone prior endoscopy. Current Outpatient Medications Medication Sig atorvastatin (LIPITOR) 40 mg tablet Take 1 tablet by mouth once daily. levothyroxine (LEVOXYL) 25 mcg tablet Take 1 tablet by mouth once daily. Take on empty stomach. For Thyroid JARDIANCE 10 mg tablet Take 1 tablet by mouth every afternoon. Insulin Strang, Disposable, 31 gauge x /4 ndle USE ONE PEN NEEDLE PER DOSE 4 times a day, Dx E11.3299 on insulin omeprazole (PRILOSEC) 20 mg capsule TAKE 1 CAPSULE BY MOUTH ONCE DAILY 30 MINUTES BEFORE BREAKFAST clotrimazole (LOTRIMIN) 1 % cream aspirin 81 mg cap Take 1 tablet by mouth once daily. DULoxetine (CYMBALTA) 30 mg capsule Take 1 capsule by mouth two times a day. lisinopril (ZESTRIL) 5 mg tablet Take 1 tablet by mouth once daily. Decreased by cardio 06/2023 due to low BP and dizziness insulin glargine (BASAGLAR KWIKPEN U-100 INSULIN) 100 unit/mL (3 mL) Inject 26 Units subcutaneously every morning. Per Endocrine, Dr. Conte insulin aspart U-100 (NOVOLOG FLEXPEN U-100 INSULIN) 100 unit/mL (3 mL) Inject 18 Units subcutaneously three times daily before meals. And 9 units with snacks. Per Endocrine Dr. Conte isosorbide mononitrate ER (IMDUR) 60 mg 24 hr tablet Take 1 tablet by mouth once daily. Per [facility] fluticasone (FLONASE) 50 mcg/actuation nasal spray Use 2 Sprays in each nostril once daily. Rinse mouth after use. clopidogrel (PLAVIX) 75 mg tablet Take 1 tablet by mouth once daily. Per [facility]. nitroglycerin sublingual (NITROQUICK) 0.4 mg SL tablet DISSOLVE ONE TABLET UNDER THE TONGUE EVERY 5 MINUTES NEEDED FOR CARDIAC CHEST PAIN blood sugar diagnostic (BLOOD GLUCOSE TEST) test strip Test blood sugar(s) 2-3 times daily. Dx: Other DM Code E11.3299 Insulin: Yes Lancets lancets Test blood sugar(s) 2-3 times daily. Dx: Other DM Code E11.3299 Insulin: Yes blood sugar diagnostic (FREESTYLE LITE STRIPS) test [...] sugar as directed. No current facility-administered medications for this visit. ALLERGIES: Patient has no known allergies. PAST MEDICAL HISTORY Diagnosis Date Allergic rhinitis 03/12/2013 Bilateral carotid artery stenosis 05/08/2021 US 04/2021: Right 0-19%, Left 20-40% Cataract of both eyes 01/09/2016 Chronic bilateral low back pain with bilateral sciatica 01/15/2011 Chronic pain of both shoulders 03/11/2009 Coronary artery disease due to lipid rich plaque 04/27/2021 Seeing [facility] Diabetic eye exam (HCC) 01/12/2022 Last done 01/11/22 [facility] Diabetic neuropathy (HCC) 12/12/2023 NIMESH (generalized anxiety disorder) 11/04/2019 GERD without esophagitis 11/04/2019 History of kidney stones 01/14/2013 Hypertension goal BP (blood pressure) < 140/90 05/10/2006 Kidney stones 2008 Marijuana use Mixed hyperlipidemia 03/29/2009 Obesity, Class II, BMI 35-39.9 Panic attack 11/14/2010 Plantar fasciitis, left 11/04/2019 S/P coronary artery stent placement 04/27/2021 2 stents 04/24/2021 Subclavian artery stenosis, right ([facility]) 05/08/2021 US 04/2021: 50-99% Type 2 diabetes mellitus with mild nonproliferative diabetic retinopathy without macular edema ([facility]) 01/09/2016 [facility] - . Well adult exam 11/04/2019 Last done: 11/04/2019 PAST SURGICAL HISTORY Procedure Laterality Date CC CORONARY STENT 08/29/2022 stent to LAD and Mid Circ CORONARY STENT INITIAL 04/24/2021 2 stents placed EGD TRANSORAL BIOPSY SINGLE/MULTIPLE 09/07/2010 gastritis, diffuse, moderate LEFT HEART CATH,PERCUTANEOUS 10/28/2001 Cardiac cath, L heart PAST SURGICAL HISTORY OF remote ?cystoscopy FAMILY HISTORY Problem Relation Age of Onset Hypertension Mother Ovarian cancer Mother Ischemic Heart Disease Father at 45years old Diabetes Maternal Grandmother Alzheimer's Disease No Family History Colon Cancer No Family History Prostate Cancer No Family History Breast Cancer No Family History Hyperlipidemia No Family History Kidney Disease No Family History Seizures No Family History Stroke No Family History Thyroid No Family History Social History Tobacco Use Smoking status: Never Smokeless tobacco: Former Types: Chew Quit date: 1994 Vaping Use Vaping status: Never Used Substance Use Topics Alcohol use: No Drug use: Yes Types: Marijuana Comment: Miscellaneous: daily REVIEW OF SYMPTOMS: REVIEW OF SYSTEMS: General: The patient + fatigue, denies weight loss, denies weight gain, denies feeling hot, and feelings of cold. Cardiovascular: The patient denies chest pain, + heart disease, + high blood pressure, + high cholesterol, and denies poor circulation. Respiratory: The patient denies tuberculosis, denies pneumonia, denies frequent cough, denies shortness of breath, and denies coughing up blood. Gastrointestinal: The patient denies difficulty swallowing, denies acid reflux, denies ulcers, denies jaundice/hepatitis, denies gallbladder problems, denies vomiting, denies black or tarry stools, + hemorrhoids, denies bleeding from rectum, denies diverticulitis, denies constipation, denies diarrhea, denies loss of stool control, and denies hernias. Endocrine: The patient + thyroid disorders, + diabetes, and denies hormonal problems. PHYSICAL EXAMINATION: General: The patient is 49 year old, male well nourished, well hydrated in no acute distress. The patient is oriented to time, place, and person. VITALS: Blood pressure 117/80, pulse 70, temperature 36.2 C (97.1 F), height 177.8 cm (5' 10 ), weight 116.8 kg (257 lb 9.6 oz), SpO2 98%. Body mass index is 36.96 kg/m . HEENT: Normal cephalic, ataumatic, pupils are equally round, sclera are anicteric, mucous membranes are moist, oropharynx is clear. Neck has no masses, asymmetry or lymphadenopathy. Respiratory: Clear to auscultation and percussion. Normal respiratory excursion and pattern. Cardiac: Examination is regular rate and rhythm. Normal S1/S2 Abdominal exam: Soft, nontender, with no palpable masses. No hepatosplenomegaly. No palpable hernias. Extremities: no clubbing, cyanosis or edema. No adenopathy. LABORATORY VALUES: As Noted RADIOLOGIC STUDIES: As Noted Assessment IMPRESSION: + Cologuard test, screen for colon cancer PLAN: I have reviewed my findings with the surgeon. Will plan for upper and lower endoscopy. We discussed the risks and benefits of the planned endoscopy. I have informed the patient that complications can occur including failure to complete the endoscopy and perforation. Michael had the opportunity to ask questions concerning the planned endoscopy. My staff has also explained the procedure to the patient in understandable terms and has given the patient printed material concerning the procedure. Michael freely consents to surgery. I plan to use Golytely bowel preparation Must hold Jardiance 3 days prior to endoscopy Contact [facility] about holding Plavix Patient instructed to contact Dr. Conte for instructions regarding diabetic medication, which may require adjustment during bowel preparation and/or day of procedure. I have explained to the patient the difference between IV conscious sedation and MAC anesthesia - and I have offered either, according to the patient's wishes. I have explained that with IV conscious sedation there is no anesthesia provider available and therefore there is a limitation of the amount of IV medications that can be given and that the patient may wake up in the middle of the procedure and/or experience pain/discomfort during the procedure. Further discussion was done and the patient was given the opportunity to ask questions and all questions were answered. MAC anesthesia d/t daily marijuana use Michael was counseled that if there are changes in his/her medical condition, to let the office know if surgery should proceed. If there are changes in patient's medical condition from time of this encounter to the day of the procedure that preclude anesthesia, patient may have procedure cancelled for patient's safety. Diagnoses: (R19.5) Positive colorectal cancer screening using Cologuard test Consultation requested by aDve Abreu CNP for an opinion regarding + Cologuard. My final recommendations will be communicated back to the requesting physician by way of shared Medical record or letter to requesting physician via US mail. Portions of this documentation were copied and pasted from previous office visit notes in order to provide a cohesive continuity of the history. The note has been reviewed and edited and updated as necessary. Fanny Reyna APRN.CNP documented in this encounter [facility] 07-22-2024 Note HNO ID: [id number] Author: FANNY REYNA APRN.CNP Service: ? Author Type: Nurse Practitioner Type: Progress Notes Filed: 07/22/2024 12:05 Note Text: HISTORY AND PHYSICAL Michael Youngblood : 1975 REFERRING PHYSICIAN: Dave Abreu [address] [address] CHIEF COMPLAINT: Patient presents with: Consult: Colonoscopy consultation, positive Cologuard. HPI: Michael is a 49 year old male referred for endoscopy. Michael notes positive Cologuard test. Michael denies abdominal pain.. Michael denies diarrhea. Michael denies constipation. Michael denies a change in bowel habits. Michael denies melena. Michael notes bright red blood per rectum. Refers when he completed Cologuard he had strained for awhile to have BM and noted BRB on TP. Michael notes hemorrhoids. Michael notes heartburn. Takes omeprazole 20mg daily with good control. +increased gas/ feeling like burps are stuck in chest. Michael denies dysphagia. Michael denies a history of ulcers/ peptic ulcer disease. Notes family history of colon issues.-maternal uncle with colon cancer Michael has a hx of NSTEMI with 2 stent placements in 2020 and 2021. Most recent cardiac cath of 2022 showed [place] CAD with patent stents. Currently on 81mg ASA AND plavix. Last OV with [facility] 04/07/24. Last stress test 03/31/24 with no signs of ischemia or arrhythmias, EF of 59%. Denies CP, dizziness, palpitations, syncope, edema, recent hospitalizations Michael has not undergone prior endoscopy. Current Outpatient Medications Medication Sig atorvastatin (LIPITOR) 40 mg tablet Take 1 tablet by mouth once daily. levothyroxine (LEVOXYL) 25 mcg tablet Take 1 tablet by mouth once daily. Take on empty stomach. For Thyroid JARDIANCE 10 mg tablet Take 1 tablet by mouth every afternoon. Insulin Strang, Disposable, 31 gauge x 10/31 ndle USE ONE PEN NEEDLE PER DOSE 4 times a day, Dx E11.3299 on insulin omeprazole (PRILOSEC) 20 mg capsule TAKE 1 CAPSULE BY MOUTH ONCE DAILY 30 MINUTES BEFORE BREAKFAST clotrimazole (LOTRIMIN) 1 % cream aspirin 81 mg cap Take 1 tablet by mouth once daily. DULoxetine (CYMBALTA) 30 mg capsule Take 1 capsule by mouth two times a day. lisinopril (ZESTRIL) 5 mg tablet Take 1 tablet by mouth once daily. Decreased by cardio 06/2023 due to low BP and dizziness insulin glargine (BASAGLAR KWIKPEN U-100 INSULIN) 100 unit/mL (3 mL) Inject 26 Units subcutaneously every morning. Per Endocrine, Dr. Conte insulin aspart U-100 (NOVOLOG FLEXPEN U-100 INSULIN) 100 unit/mL (3 mL) Inject 18 Units subcutaneously three times daily before meals. And 9 units with snacks. Per Endocrine Dr. Conte isosorbide mononitrate ER (IMDUR) 60 mg 24 hr tablet Take 1 tablet by mouth once daily. Per [facility] fluticasone (FLONASE) 50 mcg/actuation nasal spray Use 2 Sprays in each nostril once daily. Rinse mouth after use. clopidogrel (PLAVIX) 75 mg tablet Take 1 tablet by mouth once daily. Per [facility]. nitroglycerin sublingual (NITROQUICK) 0.4 mg SL tablet DISSOLVE ONE TABLET UNDER THE TONGUE EVERY 5 MINUTES NEEDED FOR CARDIAC CHEST PAIN blood sugar diagnostic (BLOOD GLUCOSE TEST) test strip Test blood sugar(s) 2-3 times daily. Dx: Other DM Code E11.3299 Insulin: Yes Lancets lancets Test blood sugar(s) 2-3 times daily. Dx: Other DM Code E11.3299 Insulin: Yes blood sugar diagnostic (FREESTYLE LITE STRIPS) test [...] sugar as directed. No current facility-administered medications for this visit. ALLERGIES: Patient has no known allergies. PAST MEDICAL HISTORY Diagnosis Date Allergic rhinitis 03/12/2013 Bilateral carotid artery stenosis 05/08/2021 US 04/2021: Right 0-19%, Left 20-40% Cataract of both eyes 01/09/2016 Chronic bilateral low back pain with bilateral sciatica 01/15/2011 Chronic pain of both shoulders 03/11/2009 Coronary artery disease due to lipid rich plaque 04/27/2021 Seeing [facility] Diabetic eye exam (HCC) 01/12/2022 Last done 01/11/22 [facility] Diabetic neuropathy (HCC) 12/12/2023 NIMESH (generalized anxiety disorder) 11/04/2019 GERD without esophagitis 11/04/2019 History of kidney stones 01/14/2013 Hypertension goal BP (blood pressure) < 140/90 05/10/2006 Kidney stones 2008 Marijuana use Mixed hyperlipidemia 03/29/2009 Obesity, Class II, BMI 35-39.9 Panic attack 11/14/2010 Plantar fasciitis, left 11/04/2019 S/P coronary artery stent placement 04/27/2021 2 stents 04/24/2021 Subclavian artery stenosis, right (HCC) 05/08/2021 US 04/2021: 50-99% Type 2 diabetes mellitus with mild nonproliferative d (more content not included)... [facility] 07-21-2024 Telephone encounter Note Pt notified. Transferred to pss to set up appt. Jyothi Hodge MA [facility] 07-21-2024 Miscellaneous Notes Pt notified. Transferred to pss to set up appt. Jyothi Hodge MA Please let patient know his cologuard is positive which means abnormal cells were detected. I have placed an order for him to see general surgery for colonoscopy. documented in this encounter [facility] 07-21-2024 Telephone encounter Note Please let patient know his cologuard is positive which means abnormal cells were detected. I have placed an order for him to see general surgery for colonoscopy. [facility] 07-16-2024 Telephone encounter Note Pt informed Lilian Choe MA [facility] 07-16-2024 Miscellaneous Notes Pt informed Lilian Choe MA Please let patient know his WBC count is back to normal. documented in this encounter [facility] 07-16-2024 Telephone encounter Note Please let patient know his WBC count is back to normal. [facility] 06-30-2024 Note HNO ID: [id number] Author: DAVE ABREU APRN.CNP Service: ? Author Type: Nurse Practitioner Type: Progress Notes Filed: 06/30/2024 11:58 Note Text: Chief Complaint Patient presents with: Follow Up Head Congestion HPI Michael Youngblood is a 48 year old male who presents here today for Above Complaints.. Patient presents for head congestion, headache, occas dizziness x1 month. Patient reports symptoms have continued and are slightly worse. Past medical history, appointments, medications, allergies reviewed. Previous Medical History PAST MEDICAL HISTORY 03/12/2013: Allergic rhinitis 05/08/2021: Bilateral carotid artery stenosis Comment: US 04/2021: Right 0-19%, Left 20-40% 01/09/2016: Cataract of both eyes 01/15/2011: Chronic bilateral low back pain with bilateral sciatica 03/11/2009: Chronic pain of both shoulders 04/27/2021: Coronary artery disease due to lipid rich plaque Comment: Seeing [facility] 01/12/2022: Diabetic eye exam (HCC) Comment: Last done 01/11/22 [facility] 12/12/2023: Diabetic neuropathy (HCC) 11/04/2019: NIMESH (generalized anxiety disorder) 11/04/2019: GERD without esophagitis 01/14/2013: History of kidney stones 05/10/2006: Hypertension goal BP (blood pressure) < 140/90 2007: Kidney stones No date: Marijuana use 03/29/2009: Mixed hyperlipidemia No date: Obesity, Class II, BMI 35-39.9 11/14/2010: Panic attack 11/04/2019: Plantar fasciitis, left 04/27/2021: S/P coronary artery stent placement Comment: 2 stents 04/24/2021 05/08/2021: Subclavian artery stenosis, right (HCC) Comment: US 04/2021: 50-99% 01/09/2016: Type 2 diabetes mellitus with mild nonproliferative diabetic retinopathy without macular edema (HCC) Comment: [facility] - . 11/04/2019: Well adult exam Comment: Last done: 11/04/2019 Previous Surgical History PAST SURGICAL HISTORY 08/29/2022: CC CORONARY STENT Comment: stent to LAD and Mid Circ 04/24/2021: CORONARY STENT INITIAL Comment: 2 stents placed 09/07/2010: EGD TRANSORAL BIOPSY SINGLE/MULTIPLE Comment: gastritis, diffuse, moderate 10/28/2001: LEFT HEART CATH,PERCUTANEOUS Comment: Cardiac cath, L heart No date: PAST SURGICAL HISTORY OF Comment: remote ?cystoscopy Family History FAMILY HISTORY Problem [...] on File Prior to Visit Medication Sig atorvastatin (LIPITOR) 40 mg tablet Take 1 tablet by mouth once daily. levothyroxine (LEVOXYL) 25 mcg tablet Take 1 tablet by mouth once daily. Take on empty stomach. For Thyroid JARDIANCE 10 mg tablet Take 1 tablet by mouth every afternoon. Insulin Strang, Disposable, 31 gauge x 1/4 ndle USE ONE PEN NEEDLE PER DOSE 4 times a day, Dx E11.3299 on insulin omeprazole (PRILOSEC) 20 mg capsule TAKE 1 CAPSULE BY MOUTH ONCE DAILY 30 MINUTES BEFORE BREAKFAST clotrimazole (LOTRIMIN) 1 % cream aspirin 81 mg cap Take 1 tablet by mouth once daily. DULoxetine (CYMBALTA) 30 mg capsule Take 1 capsule by mouth two times a day. lisinopril (ZESTRIL) 5 mg tablet Take 1 tablet by mouth once daily. Decreased by cardio 06/2023 due to low BP and dizziness insulin glargine (BASAGLAR KWIKPEN U-100 INSULIN) 100 unit/mL (3 mL) Inject 26 Units subcutaneously every morning. Per Endocrine, Dr. Conte insulin aspart U-100 (NOVOLOG FLEXPEN U-100 INSULIN) 100 unit/mL (3 mL) Inject 18 Units subcutaneously three times daily before meals. And 9 units with snacks. Per Endocrine Dr. Conte isosorbide mononitrate ER (IMDUR) 60 mg 24 hr tablet Take 1 tablet by mouth once daily. Per [facility] fluticasone (FLONASE) 50 mcg/actuation nasal spray Use 2 Sprays in each nostril once daily. Rinse mouth after use. clopidogrel (PLAVIX) 75 mg tablet Take 1 tablet by mouth once daily. Per [facility]. nitroglycerin sublingual (NITROQUICK) 0.4 mg SL tablet DISSOLVE ONE TABLET UNDER THE TONGUE EVERY 5 MINUTES NEEDED FOR CARDIAC CHEST PAIN blood sugar diagnostic (BLOOD GLUCOSE TEST) test strip Test blood sugar(s) 2-3 times daily. Dx: Other DM Code E11.3299 Insulin: Yes Lancets lancets Test blood sugar(s) 2-3 times daily. Dx: Other DM Code E11.3299 Insulin: Yes blood sugar diagnostic (FREESTYLE LITE STRIPS) test strip USE ONE STRIP TWICE DAILY TO CHECK BLOOD GLUCOSE lancets (FREESTYLE LANCETS) 28 gauge Test blood sugar(s) 2 times daily. Dx: Uncontrolled Diabetes 250.02. Insulin: No albuterol HFA (VENTOLIN H (more content not included)... [facility] 06-30-2024 History of Presen t illness Narrative Chief Complaint Patient presents with: Follow Up Head Congestion HPI Michael Youngblood is a 48 year old male who presents here today for Above Complaints.. Patient presents for head congestion, headache, occas dizziness x1 month. Patient reports symptoms have continued and are slightly worse. Past medical history, appointments, medications, allergies reviewed. Previous Medical History PAST MEDICAL HISTORY 03/12/2013: Allergic rhinitis 05/08/2021: Bilateral carotid artery stenosis Comment: US 04/2021: Right 0-19%, Left 20-40% 01/09/2016: Cataract of both eyes 01/15/2011: Chronic bilateral low back pain with bilateral sciatica 03/11/2009: Chronic pain of both shoulders 04/27/2021: Coronary artery disease due to lipid rich plaque Comment: Seeing [facility] 01/12/2022: Diabetic eye exam (HCC) Comment: Last done 01/11/22 [facility] 12/12/2023: Diabetic neuropathy (HCC) 11/04/2019: NIMESH (generalized anxiety disorder) 11/04/2019: GERD without esophagitis 01/14/2013: History of kidney stones 05/10/2006: Hypertension goal BP (blood pressure) < 140/90 2008: Kidney stones No date: Marijuana use 03/29/2009: Mixed hyperlipidemia No date: Obesity, Class II, BMI 35-39.9 11/14/2010: Panic attack 11/04/2019: Plantar fasciitis, left 04/27/2021: S/P coronary artery stent placement Comment: 2 stents 04/24/2021 05/08/2021: Subclavian artery stenosis, right ([facility]) Comment: US 04/2021: 50-99% 01/09/2016: Type 2 diabetes mellitus with mild nonproliferative diabetic retinopathy without macular edema ([facility]) Comment: [facility] - . 11/04/2019: Well adult exam Comment: Last done: 11/04/2019 Previous Surgical History PAST SURGICAL HISTORY 08/29/2022: CC CORONARY STENT Comment: stent to LAD and Mid Circ 04/24/2021: CORONARY STENT INITIAL Comment: 2 stents placed 09/07/2010: EGD TRANSORAL BIOPSY SINGLE/MULTIPLE Comment: gastritis, diffuse, moderate 10/28/2001: LEFT HEART CATH,PERCUTANEOUS Comment: Cardiac cath, L heart No date: PAST SURGICAL HISTORY OF Comment: remote ?cystoscopy Family History FAMILY HISTORY Problem [...] on File Prior to Visit Medication Sig atorvastatin (LIPITOR) 40 mg tablet Take 1 tablet by mouth once daily. levothyroxine (LEVOXYL) 25 mcg tablet Take 1 tablet by mouth once daily. Take on empty stomach. For Thyroid JARDIANCE 10 mg tablet Take 1 tablet by mouth every afternoon. Insulin Strang, Disposable, 31 gauge x 1/4 ndle USE ONE PEN NEEDLE PER DOSE 4 times a day, Dx E11.3299 on insulin omeprazole (PRILOSEC) 20 mg capsule TAKE 1 CAPSULE BY MOUTH ONCE DAILY 30 MINUTES BEFORE BREAKFAST clotrimazole (LOTRIMIN) 1 % cream aspirin 81 mg cap Take 1 tablet by mouth once daily. DULoxetine (CYMBALTA) 30 mg capsule Take 1 capsule by mouth two times a day. lisinopril (ZESTRIL) 5 mg tablet Take 1 tablet by mouth once daily. Decreased by cardio 06/2023 due to low BP and dizziness insulin glargine (BASAGLAR KWIKPEN U-100 INSULIN) 100 unit/mL (3 mL) Inject 26 Units subcutaneously every morning. Per Endocrine, Dr. Conte insulin aspart U-100 (NOVOLOG FLEXPEN U-100 INSULIN) 100 unit/mL (3 mL) Inject 18 Units subcutaneously three times daily before meals. And 9 units with snacks. Per Endocrine Dr. Conte isosorbide mononitrate ER (IMDUR) 60 mg 24 hr tablet Take 1 tablet by mouth once daily. Per [facility] fluticasone (FLONASE) 50 mcg/actuation nasal spray Use 2 Sprays in each nostril once daily. Rinse mouth after use. clopidogrel (PLAVIX) 75 mg tablet Take 1 tablet by mouth once daily. Per [facility]. nitroglycerin sublingual (NITROQUICK) 0.4 mg SL tablet DISSOLVE ONE TABLET UNDER THE TONGUE EVERY 5 MINUTES NEEDED FOR CARDIAC CHEST PAIN blood sugar diagnostic (BLOOD GLUCOSE TEST) test strip Test blood sugar(s) 2-3 times daily. Dx: Other DM Code E11.3299 Insulin: Yes Lancets lancets Test blood sugar(s) 2-3 times daily. Dx: Other DM Code E11.3299 Insulin: Yes blood sugar diagnostic (FREESTYLE LITE STRIPS) test [...] Chew Quit date: 1994 Vaping Use Vaping status: Never Used Substance Use Topics Alcohol use: No Drug use: Yes Types: Marijuana Comment: Miscellaneous: daily Review of Symptoms REVIEW OF SYSTEMS SEE HPI EXAM: BP 154/89 Pulse (!) 57 Resp 14 Wt 117.9 kg (260 lb) SpO2 99% BMI 37.22 kg/m General Appearance: Well appearing, alert, in no acute distress, well-hydrated, well nourished.. Nose/Sinuses: Positive findings: mucosa erythematous and swollen, purulent rhinorrhea. Lungs: Lungs clear to auscultation. No wheezing, rhonchi, rales.. Heart: RRR without murmur, gallop, or rubs. No ectopy. Health Maintenance List Colorectal Cancer Screening Never done Dilated Retinal Exam due on 01/11/2023 Covid-19 Vaccine(2 - season) due on 06/28/2024 Influenza Vaccine(1) due on 06/28/2024 HbA1C due on 09/16/2024 Urine Albumin:Creatinine Ratio due on 06/16/2025 LDL Cholesterol due on 06/16/2025 Diabetic Foot Exam due on 06/16/2025 Annual PCP Team Chronic Disease Visit due on 06/16/2025 Depression Screening due on 06/16/2025 BP Controlled (<130/80) due on 06/16/2025 DTaP,Tdap,Td Vaccine(3 - Td or Tdap) due on 04/29/2029 Pneumococcal Vaccine(3 of 3 - PPSV23 or PCV20) due on 2040 Hepatitis B Vaccine Discontinued Hepatitis C Screening Discontinued HIV Screening Discontinued ASSESSMENT/PLAN: 1. Bacterial sinusitis - ICD9: 473.9, 041.9, ICD10: J32.9, B96.89 (primary diagnosis) - Will begin treatment with Augmentin 875 mg PO BID for 5 days -Recommend flonase for congestion and ear pressure - Supportive care with plenty of fluids, rest, and analgesia prn. - AMOXICILLIN 875 MG-POTASSIUM CLAVULANATE 125 MG TABLET 2. Leukocytosis, unspecified type - ICD9: 288.60, ICD10: D72.829 - COMPLETE BLOOD COUNT AND DIFFERENTIAL Dave Abreu APRN.MORTGAGE ANALYST documented in this encounter [facility] 06-30-2024 Telephone encounter Note Pt called and is notified of providers results and instructions. Pt voices understanding. Pt scheduled today with Dave Abreu [employer] at 1200. Karmen Geiger RN [facility] 06-30-2024 Miscellaneous Notes Pt called and is notified of providers results and instructions. Pt voices understanding. Pt scheduled today with Dave Abreu [employer] at 1200. Karmen Geiger RN Would recommend appt, can be virtual to address symptoms. Pt notified and states he is still feeling sick. Reports that he has had a cough, chest and head congestion for about 2 weeks Please advise Leanne Moore MA Please let patient know his WBC count continues to be elevated. Is he still feeling unwell? documented in this encounter [facility] 06-26-2024 Telephone encounter Note Would recommend appt, can be virtual to address symptoms. [facility] 06-26-2024 Telephone encounter Note Pt notified and states he is still feeling sick. Reports that he has had a cough, chest and head congestion for about 2 weeks Please advise Leanne Moore MA [facility] 06-25-2024 Telephone encounter Note Please let patient know his WBC count continues to be elevated. Is he still feeling unwell? [facility] 06-18-2024 Telephone encounter Note Noted. [facility] 06-18-2024 Miscellaneous Notes Noted. Pt notified and verbalized understanding. Pt states he recently was sick Leanne Moore MASHA Please let patient know his labs show a high WBC count. Was patient feeling unwell or recently sick? I would like him to repeat cbc in 1 week. His hgba1c is elevated. Please fax lab results to Dr. Conte at [facility]. documented in this encounter [facility] 06-18-2024 Telephone encounter Note Pt notified and verbalized understanding. Pt states he recently was sick Leanne Moore MA [facility] 06-18-2024 Telephone encounter Note Please let patient know his labs show a high WBC count. Was patient feeling unwell or recently sick? I would like him to repeat cbc in 1 week. His hgba1c is elevated. Please fax lab results to Dr. Conte at [facility]. [facility] 06-16-2024 Note HNO ID: [id number] Author: DAVE ABREU APRN.WESLEY Service: ? Author Type: Nurse Practitioner Type: Progress Notes Filed: 06/16/2024 11:19 Note Text: Chief Complaint Patient presents with: Physical HPI Michael Youngblood is a 48 year old male who presents here today for Above Complaints.. Patient presents for annual physical. Patient reports he is doing well. Patient reports he has a spot on his foot he is concerned about, follows with podiatry. Past medical history, appointments, medications, allergies reviewed. Previous Medical History PAST MEDICAL HISTORY 03/12/2013: Allergic rhinitis 05/08/2021: Bilateral carotid artery stenosis Comment: US 04/2021: Right 0-19%, Left 20-40% 01/09/2016: Cataract of both eyes 01/15/2011: Chronic bilateral low back pain with bilateral sciatica 03/11/2009: Chronic pain of both shoulders 04/27/2021: Coronary artery disease due to lipid rich plaque Comment: Seeing [facility] 01/12/2022: Diabetic eye exam (HCC) Comment: Last done 01/11/22 [facility] 12/12/2023: Diabetic neuropathy (HCC) 11/04/2019: NIMESH (generalized anxiety disorder) 11/04/2019: GERD without esophagitis 01/14/2013: History of kidney stones 05/10/2006: Hypertension goal BP (blood pressure) < 140/90 2008: Kidney stones No date: Marijuana use 03/29/2009: Mixed hyperlipidemia No date: Obesity, Class II, BMI 35-39.9 11/14/2010: Panic attack 11/04/2019: Plantar fasciitis, left 04/27/2021: S/P coronary artery stent placement Comment: 2 stents 04/24/2021 05/08/2021: Subclavian artery stenosis, right (HCC) Comment: US 04/2021: 50-99% 01/09/2016: Type 2 diabetes mellitus with mild nonproliferative diabetic retinopathy without macular edema ([facility]) Comment: [facility] - . 11/04/2019: Well adult exam Comment: Last done: 11/04/2019 Previous Surgical History PAST SURGICAL HISTORY 08/29/2022: CC CORONARY STENT Comment: stent to LAD and Mid Circ 04/24/2021: CORONARY STENT INITIAL Comment: 2 stents placed 09/07/2010: EGD TRANSORAL BIOPSY SINGLE/MULTIPLE Comment: gastritis, diffuse, moderate 10/28/2001: LEFT HEART CATH,PERCUTANEOUS Comment: Cardiac cath, L heart No date: PAST SURGICAL HISTORY OF Comment: remote ?cystoscopy Family History FAMILY HISTORY Problem [...] on File Prior to Visit Medication Sig Insulin Strang, Disposable, 31 gauge x 1/4 ndle USE ONE PEN NEEDLE PER DOSE 4 times a day, Dx E11.3299 on insulin omeprazole (PRILOSEC) 20 mg capsule TAKE 1 CAPSULE BY MOUTH ONCE DAILY 30 MINUTES BEFORE BREAKFAST clotrimazole (LOTRIMIN) 1 % cream aspirin 81 mg cap Take 1 tablet by mouth once daily. DULoxetine (CYMBALTA) 30 mg capsule Take 1 capsule by mouth two times a day. lisinopril (ZESTRIL) 5 mg tablet Take 1 tablet by mouth once daily. Decreased by cardio 06/2023 due to low BP and dizziness insulin glargine (BASAGLAR KWIKPEN U-100 INSULIN) 100 unit/mL (3 mL) Inject 26 Units subcutaneously every morning. Per EndocrineDr. Conte [...] by mouth once daily. Per [facility] fluticasone (FLONASE) 50 mcg/actuation nasal spray Use 2 Sprays in each nostril once daily. Rinse mouth after use. clopidogrel (PLAVIX) 75 mg tablet Take 1 tablet by mouth once daily. Per [facility]. nitroglycerin sublingual (NITROQUICK) 0.4 mg SL tablet DISSOLVE ONE TABLET UNDER THE TONGUE EVERY 5 MINUTES NEEDED FOR CARDIAC CHEST PAIN blood sugar diagnostic (BLOOD GLUCOSE TEST) test strip Test blood sugar(s) 2-3 times daily. Dx: Other DM Code E11.3299 Insulin: Yes Lancets lancets Test blood sugar(s) 2-3 times daily. Dx: Other DM Code E11.3299 Insulin: Yes blood sugar diagnostic (FREESTYLE LITE STRIPS) test strip USE ONE STRIP TWICE DAILY TO CHECK BLOOD GLUCOSE lancets (FREESTYLE LANCETS) 28 gauge Test blood sugar(s) 2 times daily. Dx: Uncontrolled Diabetes 250.02. Insulin: No albuterol HFA (VENTOLIN HFA) 90 mcg/actuation inhaler Inhale 2 Puffs as instructed every 4 hours as needed. (more content not included)... [facility] 06-16-2024 History of Presen t illness Narrative Images from the original note were not included. Chief Complaint Patient presents with: Physical HPI Michael Youngblood is a 48 year old male who presents here today for Above Complaints.. Patient presents for annual physical. Patient reports he is doing well. Patient reports he has a spot on his foot he is concerned about, follows with podiatry. Past medical history, appointments, medications, allergies reviewed. Previous Medical History PAST MEDICAL HISTORY 03/12/2013: Allergic rhinitis 05/08/2021: Bilateral carotid artery stenosis Comment: US 04/2021: Right 0-19%, Left 20-40% 01/09/2016: Cataract of both eyes 01/15/2011: Chronic bilateral low back pain with bilateral sciatica 03/11/2009: Chronic pain of both shoulders 04/27/2021: Coronary artery disease due to lipid rich plaque Comment: Seeing [facility] 01/12/2022: Diabetic eye exam (HCC) Comment: Last done 01/11/22 [facility] 12/12/2023: Diabetic neuropathy (HCC) 11/04/2019: NIMSEH (generalized anxiety disorder) 11/04/2019: GERD without esophagitis 01/14/2013: History of kidney stones 05/10/2006: Hypertension goal BP (blood pressure) < 140/90 2008: Kidney stones No date: Marijuana use 03/29/2009: Mixed hyperlipidemia No date: Obesity, Class II, BMI 35-39.9 11/14/2010: Panic attack 11/04/2019: Plantar fasciitis, left 04/27/2021: S/P coronary artery stent placement Comment: 2 stents 04/24/2021 05/08/2021: Subclavian artery stenosis, right (HCC) Comment: US 04/2021: 50-99% 01/09/2016: Type 2 diabetes mellitus with mild nonproliferative diabetic retinopathy without macular edema ([facility]) Comment: [facility] - . 11/04/2019: Well adult exam Comment: Last done: 11/04/2019 Previous Surgical History PAST SURGICAL HISTORY 08/29/2022: CC CORONARY STENT Comment: stent to LAD and Mid Circ 04/24/2021: CORONARY STENT INITIAL Comment: 2 stents placed 09/07/2010: EGD TRANSORAL BIOPSY SINGLE/MULTIPLE Comment: gastritis, diffuse, moderate 10/28/2001: LEFT HEART CATH,PERCUTANEOUS Comment: Cardiac cath, L heart No date: PAST SURGICAL HISTORY OF Comment: remote ?cystoscopy Family History FAMILY HISTORY Problem [...] on File Prior to Visit Medication Sig Insulin Strang, Disposable, 31 gauge x 1/4 ndle USE ONE PEN NEEDLE PER DOSE 4 times a day, Dx E11.3299 on insulin omeprazole (PRILOSEC) 20 mg capsule TAKE 1 CAPSULE BY MOUTH ONCE DAILY 30 MINUTES BEFORE BREAKFAST clotrimazole (LOTRIMIN) 1 % cream aspirin 81 mg cap Take 1 tablet by mouth once daily. DULoxetine (CYMBALTA) 30 mg capsule Take 1 capsule by mouth two times a day. lisinopril (ZESTRIL) 5 mg tablet Take 1 tablet by mouth once daily. Decreased by cardio 06/2023 due to low BP and dizziness insulin glargine (BASAGLAR KWIKPEN U-100 INSULIN) 100 unit/mL (3 mL) Inject 26 Units subcutaneously every morning. Per [facility]. oCnte insulin aspart U-100 (NOVOLOG FLEXPEN U-100 INSULIN) [...] 1 tablet by mouth once daily. Per [facility] fluticasone (FLONASE) 50 mcg/actuation nasal spray Use 2 Sprays in each nostril once daily. Rinse mouth after use. clopidogrel (PLAVIX) 75 mg tablet Take 1 tablet by mouth once daily. Per [facility]. nitroglycerin sublingual (NITROQUICK) 0.4 mg SL tablet DISSOLVE ONE TABLET UNDER THE TONGUE EVERY 5 MINUTES NEEDED FOR CARDIAC CHEST PAIN blood sugar diagnostic (BLOOD GLUCOSE TEST) test strip Test blood sugar(s) 2-3 times daily. Dx: Other DM Code E11.3299 Insulin: Yes Lancets lancets Test blood sugar(s) 2-3 times daily. Dx: Other DM Code E11.3299 Insulin: Yes blood sugar diagnostic (FREESTYLE LITE STRIPS) test [...] Chew Quit date: 1994 Vaping Use Vaping status: Never Used Substance Use Topics Alcohol use: No Drug use: Yes Types: Marijuana Comment: Miscellaneous: daily Review of Symptoms REVIEW OF SYSTEMS SEE HPI EXAM: BP 112/75 Pulse (!) 59 Resp 16 Wt 117.5 kg (259 lb) BMI 37.08 kg/m General Appearance: Well appearing, alert, in no acute distress, well-hydrated, well nourished.. Skin: Skin color, texture, turgor normal, no suspicious rashes or lesions. Lungs: Lungs clear to auscultation. No wheezing, rhonchi, rales.. Heart: RRR without murmur, gallop, or rubs. No ectopy. Abdomen: Normal abdominal exam, Abdomen soft, non-tender. Bowel sounds normal. No masses, organomegaly. Musculoskeletal: No joint swelling, deformity, or tenderness. Peripheral Pulses: Normal. Neurologic: Gait normal. Reflexes normal and symmetric. Sensation grossly intact.. Diabetic Foot Exam: Feet: Shoes and socks removed, normal distal pulses, and calluses noted right Skin: warm and dry Vascular Pulses: Normal SEMMES-GARCIA MONOFILAMENT TESTING Left Foot Right Foot Dorsal Surface Intact Dorsal Surface Intact Plantar Surface Diminished 1/9 sites Plantar Surface Diminished 2/9 sites Health Maintenance List Depression Screening Never done Colorectal Cancer Screening Never done Dilated Retinal Exam due on 01/11/2023 HbA1C due on 03/13/2024 Urine Albumin:Creatinine Ratio due on 06/11/2024 Diabetic Foot Exam due on 06/11/2024 Covid-19 Vaccine(2 - season) due on 12/12/2024 Influenza Vaccine(1) due on 06/28/2024 LDL Cholesterol due on 12/12/2024 BP Controlled (<130/80) due on 12/12/2024 Annual PCP Team Chronic Disease Visit due on 06/16/2025 DTaP,Tdap,Td Vaccine(3 - Td or Tdap) due on 04/29/2029 Pneumococcal Vaccine(3 of 3 - PPSV23 or PCV20) due on 2040 Hepatitis B Vaccine Discontinued Hepatitis C Screening Discontinued HIV Screening Discontinued Data reviewed Last 5 Encounter BP Readings: Date: BP: 06/16/2024 136/87 12/12/2023 116/78 10/22/2023 116/80 06/11/2023 126/86 04/12/2023 117/88 Last 2 Encounter Wt Readings: Date: Wt: 06/16/2024 117.5 kg (259 lb) 12/12/2023 122 kg (269 lb) ASSESSMENT/PLAN: 1. Mixed hyperlipidemia - ICD9: 272.2, ICD10: E78.2 (primary diagnosis) - Control undetermined, due for labs - Continue current medications - Counseled on healthy diet and regular exercise - Discussed need for and benefit of weight loss. BMI 37.08 kg/(m^2) - ATORVASTATIN 40 MG TABLET 2. Screening for depression - ICD9: V79.0, ICD10: Z13.31 - DEPRESSION SCREENING 3. Acquired hypothyroidism - ICD9: 244.9, ICD10: E03.9 - check TSH today - continue current dose of Synthroid 0.025 mg - LEVOTHYROXINE 25 MCG TABLET 4. Screening for colon cancer - ICD9: V76.51, ICD10: Z12.11 - COLOGUARD 5. 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 Last appt 12/2022 6. GERD without esophagitis - ICD9: 530.81, ICD10: K21.9 - Continue treatment with Prilosec 20 mg QD 7. Coronary artery disease due to lipid rich plaque - ICD9: 414.00, 414.3, ICD10: I25.10, I25.83 -Follows with [facility], last appt 04/2024 8. NIMESH (generalized anxiety disorder) - ICD9: 300.02, ICD10: F41.1 -Continue cymbalta 9. Obesity, Class II, BMI 35-39.9 - ICD9: 278.00, ICD10: E66.9 Weight decreasing -10 pounds since 11/2023 10. Well adult exam - ICD9: V70.0, ICD10: Z00.00 - Counseled on healthy diet and regular exercise - Discussed need for and benefit of weight loss. BMI 37.08 kg/(m^2) - Colorectal cancer screening recommended - agrees to Cologuard - Follow up for annual exam in one year 11. Medication management - ICD9: V58.69, ICD10: Z79.899 -Labs to be completed 12. Pre-ulcerative corn or callous - ICD9: 700, ICD10: L84 -Encouraged patient to follow up with jacquard lace weaver at [facility] and ankle. Dave Abreu APRN.MORTGAGE ANALYST documented in this encounter [facility] 04-23-2024 Note HNO ID: [id number] Author: URIAH FUNES LPN Service: ? Author Type: LICENSED NURSE Type: Progress Notes Filed: 04/23/2024 08:40 Note Text: Scan on 04/22/2024 8:26 AM by Dejon Betancourt PA-C: Consultation - PT/OT/Speech [facility] 04-23-2024 History of Presen t illness Narrative Scan on 04/22/2024 8:26 AM by Dejon Betancourt PA-C: Consultation - PT/OT/Speech documented in this encounter [facility] 04-20-2024 Note HNO ID: [id number] Author: URIAH FUNES LPN Service: ? Author Type: LICENSED NURSE Type: Progress Notes Filed: 04/20/2024 14:41 Note Text: Scan on 04/18/2024 9:34 AM by Dejon Betancourt PA-C: Microbiology [facility] 04-20-2024 History of Presen t illness Narrative Scan on 04/18/2024 9:34 AM by Dejon Betancourt PA-C: Microbiology documented in this encounter [facility] 03-30-2024 Note HNO ID: [id number] Author: KRISH AGUILAR MA Service: ? Author Type: Mechanic Sound Technician Type: Progress Notes Filed: 03/30/2024 15:58 Note Text: Scan on 03/30/2024 11:59 AM by Dejon Betancourt PA-C: Consultation - PT/OT/Speech Krish Aguilar MA [facility] 03-30-2024 History of Presen t illness Narrative Scan on 03/30/2024 11:59 AM by Dejon Betancourt PA-C: Consultation - PT/OT/Speech Krish Aguilar MA documented in this encounter [facility] 03-24-2024 Note HNO ID: [id number] Author: RAGINI MINAYA LPN Service: ? Author Type: LICENSED NURSE Type: Progress Notes Filed: 03/24/2024 12:46 Note Text: Scan on 03/22/2024 8:08 AM by Dejon Betancourt PA-C: Microbiology Scan on 03/21/2024 8:09 AM by Dejon Betancourt PA-C: Pathology Scan on 03/20/2024 1:37 PM by Dejon Betancourt PA-C: Pathology Ragini Minaya LPN [facility] 03-24-2024 History of Presen t illness Narrative Scan on 03/22/2024 8:08 AM by Dejon Betancourt PA-C: Microbiology Scan on 03/21/2024 8:09 AM by Dejon Betancourt PA-C: Pathology Scan on 03/20/2024 1:37 PM by Dejon Betancourt PA-C: Pathology Ragini Minaya LPN documented in this encounter [facility] 03-20-2024 Note HNO ID: [id number] Author: RAGINI MINAYA LPN Service: ? Author Type: LICENSED NURSE Type: Progress Notes Filed: 03/20/2024 13:08 Note Text: Scan on 03/20/2024 12:10 PM by Dejon Betancourt PA-C: Microbiology Scan on 03/20/2024 8:14 AM by Dejon Betancourt PA-C: Microbiology Scan on 03/20/2024 7:34 AM by Dejon Betancourt PA-C: Microbiology Ragini Minaya LPN [facility] 03-20-2024 History of Presen t illness Narrative Scan on 03/20/2024 12:10 PM by Dejon Betancourt PA-C: Microbiology Scan on 03/20/2024 8:14 AM by Dejon Betancourt PA-C: Microbiology Scan on 03/20/2024 7:34 AM by ProviderDejon PA-C: Microbiology Ragini Minaya LPN documented in this encounter [facility] 03-19-2024 Note HNO ID: [id number] Author: STELLA CROSS LPN Service: ? Author Type: LICENSED NURSE Type: Progress Notes Filed: 03/19/2024 18:41 Note Text: Scan on 03/19/2024 9:37 AM by Dejon Betancourt PA-C: Miscellaneous Lab Scan on 03/19/2024 9:07 AM by Dejon Betancourt PA-C: Miscellaneous Lab Scan on 03/18/2024 11:37 AM by Dejon Betancourt PA-C: Miscellaneous Lab Scan on 03/18/2024 10:09 AM by ProviderDejon PA-C: Miscellaneous Lab [facility] 03-19-2024 History of Presen t illness Narrative Scan on 03/19/2024 9:37 AM by ProviderDejon PA-C: Miscellaneous Lab Scan on 03/19/2024 9:07 AM by ProviderDejon PA-C: Miscellaneous Lab Scan on 03/18/2024 11:37 AM by ProviderDejon PA-C: Miscellaneous Lab Scan on 03/18/2024 10:09 AM by ProviderDejon PA-C: Miscellaneous Lab documented in this encounter [facility] 03-18-2024 Note PROCEDURE: SHOULDER RIGHT COMPLETE, SHOULDER LEFT COMPLETE, 03/18/2024 8:00 AM EDT CLINICAL INDICATIONS: Bilateral shoulder pain. COMPARISON: None TECHNIQUE: Right shoulder 3 views. Left shoulder 3 views. FINDINGS: RIGHT SHOULDER: There is moderate glenohumeral and acromioclavicular osteoarthrosis. No acute osseous pathology. Chest wall abnormality is not seen. Regional soft tissues normal. LEFT SHOULDER: Moderate glenohumeral and acromioclavicular osteoarthrosis noted. Bones normal in density. Acute osseous pathology is not evident. Chest wall abnormality is not evident. Regional soft tissues are unremarkable. IMPRESSION: 1. Bilateral osteoarthrosis as described. 2. No acute osseous pathology. [facility] 03-18-2024 Note PROCEDURE: SHOULDER RIGHT COMPLETE, SHOULDER LEFT COMPLETE, 03/18/2024 8:00 AM EDT CLINICAL INDICATIONS: Bilateral shoulder pain. COMPARISON: None TECHNIQUE: Right shoulder 3 views. Left shoulder 3 views. FINDINGS: RIGHT SHOULDER: There is moderate glenohumeral and acromioclavicular osteoarthrosis. No acute osseous pathology. Chest wall abnormality is not seen. Regional soft tissues normal. LEFT SHOULDER: Moderate glenohumeral and acromioclavicular osteoarthrosis noted. Bones normal in density. Acute osseous pathology is not evident. Chest wall abnormality is not evident. Regional soft tissues are unremarkable. IMPRESSION: 1. Bilateral osteoarthrosis as described. 2. No acute osseous pathology. [facility] 03-17-2024 Telephone encounter Note Patient has been identified by name and date of : Yes, Provider Dr. Simon Date 03-17-24 Time 12:45p Patient phones for refill(s): Requested Prescriptions Pending Prescriptions Disp Refills Insulin Strang, Disposable, 31 gauge x 1/4 ndle 100 Each 12 Sig: USE ONE PEN NEEDLE PER DOSE 4 times a day, Dx E11.3299 on insulin Date of last office visit in primary care: 12/12/2023 Date of next office visit in primary care: 06/11/2024 Please advise. Thank you. Xuan Reyna. [facility] Work Phone: 03-17-2024 Miscellaneous Notes Patient has been identified by name and date of : Yes, Provider Dr. Simon Date 03-17-24 Time 12:45p Patient phones for refill(s): Requested Prescriptions Pending Prescriptions Disp Refills Insulin Strang, Disposable, 31 gauge x 1/4 ndle 100 Each 12 Sig: USE ONE PEN NEEDLE PER DOSE 4 times a day, Dx E11.3299 on insulin Date of last office visit in primary care: 12/12/2023 Date of next office visit in primary care: 06/11/2024 Please advise. Thank you. Xuan Reyna. documented in this encounter [facility] 03-10-2024 Telephone encounter Note Patient has been identified by name and date of : Yes, Provider Dr Simon Patient phones for refill(s): Requested Prescriptions Pending Prescriptions Disp Refills omeprazole (PRILOSEC) 20 mg capsule 90 capsule 1 Sig: TAKE 1 CAPSULE BY MOUTH ONCE DAILY 30 MINUTES BEFORE BREAKFAST Date of last office visit in primary care: 12/12/2023 Date of next office visit in primary care: 06/11/2024 Last Refill: 08/20/23 #90 1 refill Please advise. Thank you. Ragini Minaya LPN. [facility] 03-10-2024 Miscellaneous Notes Patient has been identified by name and date of : Yes, Provider Dr Simon Patient phones for refill(s): Requested Prescriptions Pending Prescriptions Disp Refills omeprazole (PRILOSEC) 20 mg capsule 90 capsule 1 Sig: TAKE 1 CAPSULE BY MOUTH ONCE DAILY 30 MINUTES BEFORE BREAKFAST Date of last office visit in primary care: 12/12/2023 Date of next office visit in primary care: 06/11/2024 Last Refill: 08/20/23 #90 1 refill Please advise. Thank you. Ragini Minaya LPN. Pharmacy verified in [facility] Patient has been identified by name and date of : Yes Patient aware RX will be sent to pharmacy. No need to notify patient. Patient phones for refill(s): Requested Prescriptions Pending Prescriptions Disp Refills omeprazole (PRILOSEC) 20 mg capsule 90 capsule 1 Sig: TAKE 1 CAPSULE BY MOUTH ONCE DAILY 30 MINUTES BEFORE BREAKFAST Date of last office visit : 12/12/2023 Date of next office visit : 06/11/2024 Last 2 Encounter Wt Readings: Date: Wt: 12/12/2023 122 kg (269 lb) 10/22/2023 123.8 kg (273 lb) Not applicable Please advise. Xuan Sinha Pss documented in this encounter [facility] 03-10-2024 Telephone encounter Note Pharmacy verified in Epic Patient has been identified by name and date of : Yes Patient aware RX will be sent to pharmacy. No need to notify patient. Patient phones for refill(s): Requested Prescriptions Pending Prescriptions Disp Refills omeprazole (PRILOSEC) 20 mg capsule 90 capsule 1 Sig: TAKE 1 CAPSULE BY MOUTH ONCE DAILY 30 MINUTES BEFORE BREAKFAST Date of last office visit : 12/12/2023 Date of next office visit : 06/11/2024 Last 2 Encounter Wt Readings: Date: Wt: 12/12/2023 122 kg (269 lb) 10/22/2023 123.8 kg (273 lb) Not applicable Please advise. Xuan Sinha Pss [facility] Work Phone: 02-25-2024 Note HNO ID: [id number] Author: RAGINI MINAYA LPN Service: ? Author Type: LICENSED NURSE Type: Progress Notes Filed: 02/25/2024 08:46 Note Text: Scan on 01/04/2024 8:35 AM by ProviderDejon PA-C: Microbiology Ragini Minaya LPN [facility] 02-25-2024 History of Presen t illness Narrative Scan on 01/04/2024 8:35 AM by ProviderDejon PA-C: Microbiology Ragini Minaya LPN documented in this encounter [facility] 01-09-2024 Note HNO ID: [id number] Author: URIAH FUNES LPN Service: ? Author Type: LICENSED NURSE Type: Progress Notes Filed: 01/09/2024 08:19 Note Text: Scan on 01/08/2024 7:51 AM by ProviderDejon PA-C: Microbiology [facility] 01-09-2024 History of Presen t illness Narrative Scan on 01/08/2024 7:51 AM by Dejon Betancourt PA-C: Microbiology documented in this encounter [facility] 01-04-2024 Note HNO ID: [id number] Author: URIAH FUNES LPN Service: ? Author Type: LICENSED NURSE Type: Progress Notes Filed: 01/04/2024 11:37 Note Text: Scan on 01/04/2024 8:35 AM by Dejon Betancourt PA-C: Evon [facility] 01-04-2024 History of Presen t illness Narrative Scan on 01/04/2024 8:35 AM by ProviderDejon PA-C: Microbiology documented in this encounter [facility] 12-18-2023 Miscellaneous Notes 3rd attempt to reach patient with no answer. Left message to contact office. Also sent letter to pt home address informing pt that we have tried contacting him multiple times to relay lab results. Lilian Choe Left message for patient to contact office. Krish Aguilar MA Left message for patient to contact office. Krish Aguilar MA Let patient know recent labs were ok except her good Chol is low at 35 and would like to see it up around 50. The best way to increase it is with exercise. documented in this encounter [facility] 12-13-2023 Miscellaneous Notes Faxed information/consult to Dr. Seay. Krish Aguilar MA documented in this encounter [facility] 12-12-2023 History of Past i llness Narrative Problem Noted Date Diagnosed Date Resolved Date Abnormal weight gain 12/12/2023 12/12/2023 024 ACS (acute coronary syndrome) 12/12/2023 12/12/2023 12/12/2023 Bilateral arm weakness 12/12/2023 12/12/202312/12 Blurring of visual image 12/12/2023 12/12/2023 Bradycardia 12/12/2023 12/12/2023 12/12/2023 Cranial nerve palsy 12/12/2023 12/12/202312/12 Dizziness 12/12/2023 12/12/2023 12/12/2023 Dysuria 12/12/2023 12/12/2023 12/12/2023 Foot lesion 12/12/2023 12/12/2023 12/12/2023 Headache, unspecified 12/12/2023 12/12/20232023 History of anxiety state 12/12/2023 12/12/2023 History of CAD (coronary artery disease) 12/12/2023 12/12/2023 12/12/2023 History of diabetes mellitus 12/12/2023 12/12/2023 12/12/2023 Influenza A 12/12/2023 12/12/2023 12/12/2023 S/P PTCA (percutaneous trans luminal coronary angioplasty) 12/12/2023 12/12/2023 12/12/2023 Shortness of breath 12/12/2023 12/12/2023 12/12/19 24 Strain of shoulder 12/12/2023 12/12/2023 Chest pain 01/14/2023 12/12/2023 12/12/2023 Shoulder pain 12/04/2022 12/12/2023 12/12/2023 Myocardial infarction 09/24/2022 12/12/20232023 Neuropathy 11/04/2019 12/12/2023 Overview: Hands and feet Plantar fasciitis, left 11/04/201911/28 Uncontrolled type 2 diabetes mellitus with complication, [...] as of this encounter (statuses as of 12/12/2023) [facility] History of Past illness Narrative* Problem Noted Date Diagnosed Date Resolved Date Abnormal weight gain 12/12/2023 12/12/2023 024 ACS (acute coronary syndrome) 12/12/2023 12/12/2023 12/12/2023 Bilateral arm weakness 12/12/2023 12/12/202312/12 Blurring of visual image 12/12/2023 12/12/2023 Bradycardia 12/12/2023 12/12/2023 12/12/2023 Cranial nerve palsy 12/12/2023 12/12/202312/12 Dizziness 12/12/2023 12/12/2023 12/12/2023 Dysuria 12/12/2023 12/12/2023 12/12/2023 Foot lesion 12/12/2023 12/12/2023 12/12/2023 Headache, unspecified 12/12/2023 12/12/20232023 History of anxiety state 12/12/2023 12/12/2023 History of CAD (coronary artery disease) 12/12/2023 12/12/2023 12/12/2023 History of diabetes mellitus 12/12/2023 12/12/2023 12/12/2023 Influenza A 12/12/2023 12/12/2023 12/12/2023 S/P PTCA (percutaneous trans luminal coronary angioplasty) 12/12/2023 12/12/2023 12/12/2023 Shortness of breath 12/12/2023 12/12/2023 12/12/19 24 Strain of shoulder 12/12/2023 12/12/2023 Chest pain 01/14/2023 12/12/2023 12/12/2023 Shoulder pain 12/04/2022 12/12/2023 12/12/2023 Myocardial infarction 09/24/2022 12/12/20232023 Neuropathy 11/04/2019 12/12/2023 Overview: Hands and feet Plantar fasciitis, left 11/04/201911/28 Uncontrolled type 2 diabetes mellitus with complication, [...] as of this encounter (statuses as of 12/13/2023) [facility] History of Past illness Narrative* Problem Noted Date Diagnosed Date Resolved Date Abnormal weight gain 12/12/2023 12/12/2023 024 ACS (acute coronary syndrome) 12/12/2023 12/12/2023 12/12/2023 Bilateral arm weakness 12/12/2023 12/12/202312/12 Blurring of visual image 12/12/2023 12/12/2023 Bradycardia 12/12/2023 12/12/2023 12/12/2023 Cranial nerve palsy 12/12/2023 12/12/202312/12 Dizziness 12/12/2023 12/12/2023 12/12/2023 Dysuria 12/12/2023 12/12/2023 12/12/2023 Foot lesion 12/12/2023 12/12/2023 12/12/2023 Headache, unspecified 12/12/2023 12/12/20232023 History of anxiety state 12/12/2023 12/12/2023 History of CAD (coronary artery disease) 12/12/2023 12/12/2023 12/12/2023 History of diabetes mellitus 12/12/2023 12/12/2023 12/12/2023 Influenza A 12/12/2023 12/12/2023 12/12/2023 S/P PTCA (percutaneous trans luminal coronary angioplasty) 12/12/2023 12/12/2023 12/12/2023 Shortness of breath 12/12/2023 12/12/2023 12/12/19 24 Strain of shoulder 12/12/2023 12/12/2023 Chest pain 01/14/2023 12/12/2023 12/12/2023 Shoulder pain 12/04/2022 12/12/2023 12/12/2023 Myocardial infarction 09/24/2022 12/12/20232023 Neuropathy 11/04/2019 12/12/2023 Overview: Hands and feet Plantar fasciitis, left 11/04/201911/28 Uncontrolled type 2 diabetes mellitus with complication, [...] as of this encounter (statuses as of 12/18/2023) [facility] History of Past illness Narrative* Problem Noted Date Diagnosed Date Resolved Date Abnormal weight gain 12/12/2023 12/12/2023 024 ACS (acute coronary syndrome) 12/12/2023 12/12/2023 12/12/2023 Bilateral arm weakness 12/12/2023 12/12/202312/12 Blurring of visual image 12/12/2023 12/12/2023 Bradycardia 12/12/2023 12/12/2023 12/12/2023 Cranial nerve palsy 12/12/2023 12/12/202312/12 Dizziness 12/12/2023 12/12/2023 12/12/2023 Dysuria 12/12/2023 12/12/2023 12/12/2023 Foot lesion 12/12/2023 12/12/2023 12/12/2023 Headache, unspecified 12/12/2023 12/12/20232023 History of anxiety state 12/12/2023 12/12/2023 History of CAD (coronary artery disease) 12/12/2023 12/12/2023 12/12/2023 History of diabetes mellitus 12/12/2023 12/12/2023 12/12/2023 Influenza A 12/12/2023 12/12/2023 12/12/2023 S/P PTCA (percutaneous trans luminal coronary angioplasty) 12/12/2023 12/12/2023 12/12/2023 Shortness of breath 12/12/2023 12/12/2023 12/12/19 24 Strain of shoulder 12/12/2023 12/12/2023 Chest pain 01/14/2023 12/12/2023 12/12/2023 Shoulder pain 12/04/2022 12/12/2023 12/12/2023 Myocardial infarction 09/24/2022 12/12/20232023 Neuropathy 11/04/2019 12/12/2023 Overview: Hands and feet Plantar fasciitis, left 11/04/2019 02/02/2024 Uncontrolled type 2 diabetes mellitus with complication, [...] as of this encounter (statuses as of 01/04/2024) [facility] History of Past illness Narrative* Problem Noted Date Diagnosed Date Resolved Date Abnormal weight gain 12/12/2023 12/12/2023 024 ACS (acute coronary syndrome) 12/12/2023 12/12/2023 12/12/2023 Bilateral arm weakness 12/12/2023 12/12/202312/12 Blurring of visual image 12/12/2023 12/12/2023 Bradycardia 12/12/2023 12/12/2023 12/12/2023 Cranial nerve palsy 12/12/2023 12/12/202312/12 Dizziness 12/12/2023 12/12/2023 12/12/2023 Dysuria 12/12/2023 12/12/2023 12/12/2023 Foot lesion 12/12/2023 12/12/2023 12/12/2023 Headache, unspecified 12/12/2023 12/12/20234 History of anxiety state 12/12/2023 12/12/2023 History of CAD (coronary artery disease) 12/12/2023 12/12/2023 12/12/2023 History of diabetes mellitus 12/12/2023 12/12/2023 12/12/2023 Influenza A 12/12/2023 12/12/2023 12/12/2023 S/P PTCA (percutaneous trans luminal coronary angioplasty) 12/12/2023 12/12/2023 12/12/2023 Shortness of breath 12/12/2023 12/12/2023 12/12/19 24 Strain of shoulder 12/12/2023 12/12/2023 Chest pain 01/14/2023 12/12/2023 12/12/2023 Shoulder pain 12/04/2022 12/12/2023 12/12/2023 Myocardial infarction 09/24/2022 12/12/20232023 Neuropathy 11/04/2019 12/12/2023 Overview: Hands and feet Plantar fasciitis, left 11/04/201911/28 Uncontrolled type 2 diabetes mellitus with complication, [...] as of this encounter (statuses as of 01/09/2024) [facility]02-15-2024 Instructions* Patient Instructions* Darinel Simon MD - 12/12/2023 10:18 AM EST Please get labs and urine test done on or after 05/29/2024 prior to your next visit. documented in this encounterDunlap [facility]24 NoteHNO ID: [id number] Author: DARINEL SIMON MD Service: ? Author Type: Physician Type: Progress Notes Filed: 12/12/2023 13:19 Note Text: Chief Complaint Patient presents with: 6 Month Exam HPI Michael Youngblood is a 48 year old male who presents here today for Above Complaints. and Chronic Medical Conditions.. Patient with hx of DM 2, diabetic retinopathy, NIMESH with panic attacks, HTN, Hyperlipidemia, GERD, obesity, marijuana use as well as those reviewed and addressed below and in ROS. Patient still seeing endo and Cardio. Doing better with his diabetes management. Patient stopped the gabapentin because he did not want to be on meds he could get addicted to and felt it did not help. He was only on 200 mg BID at the time. Patient does continue to smoke marijuana. Past medical history, appointments, medications, allergies reviewed. Previous Medical History PAST MEDICAL HISTORY Diagnosis Date Allergic rhinitis 03/12/2013 Bilateral carotid artery stenosis 05/08/2021 US 04/2021: Right 0-19%, Left 20-40% Cataract of both eyes 01/09/2016 Chronic bilateral low back pain with bilateral sciatica 01/15/2011 Chronic pain of both shoulders 03/11/2009 Coronary artery disease due to lipid rich plaque 04/27/2021 Seeing [facility] Diabetic eye exam (HCC) 01/12/2022 Last done 01/11/22 [facility] NIMESH (generalized anxiety disorder) 11/04/2019 GERD without esophagitis [...] mild nonproliferative diabetic retinopathy without macular edema ([facility]) 01/09/2016 [facility] - . Well adult exam 11/04/2019 Last [...] on File Prior to Visit Medication Sig clotrimazole (LOTRIMIN) 1 % cream omeprazole (PRILOSEC) 20 mg capsule TAKE 1 CAPSULE BY MOUTH ONCE DAILY 30 MINUTES BEFORE BREAKFAST lisinopril (ZESTRIL) 5 mg tablet Take 1 tablet by mouth once daily. Decreased by cardio 06/2023 due to low BP and dizziness aspirin 81 mg cap Take 1 tablet by mouth once daily. levothyroxine (LEVOXYL) 25 mcg tablet Take 1 tablet by mouth once daily. Take on empty stomach. For Thyroid DULoxetine (CYMBALTA) 30 mg capsule Take 1 capsule by mouth once daily. atorvastatin (LIPITOR) 40 [...] by mouth once daily. Per [facility] fluticasone (FLONASE) 50 mcg/actuation nasal spray Use 2 Sprays in each nostril once daily. Rinse mouth after use. clopidogrel (PLAVIX) 75 mg tablet Take 1 tablet by mouth once daily. Per [facility]. nitroglycerin sublingual (NITROQUICK) 0.4 mg SL tablet DISSOLVE ONE TABLET UNDER THE TONGUE EVERY 5 MINUTES NEEDED FOR CARDIAC CHEST PAIN blood sugar diagnostic (BLOOD GLUCOSE TEST) test strip Test blood sugar(s) 2-3 times daily. Dx: Other DM Code E11.3299 Insulin: Yes Lancets lancets Test blood sugar(s) 2-3 times daily. Dx: Other DM Code E11.3299 Insulin: Yes Insulin Strang, Disposable, 31 gauge x 1/4 ndle USE ONE PEN NEEDLE PER DOSE 4 times a day, Dx E11.3 (more content not included)...[facility] 12-12-2023 History of Present illness Narrative* Darinel Simon MD - 12/12/2023 9:47 AM EST Chief Complaint Patient presents with: 6 Month Exam HPI Michael Youngblood is a 48 year old male who presents here today for Above Complaints. and Chronic Medical Conditions.. Patient with hx of DM 2, diabetic retinopathy, NIMESH with panic attacks, HTN, Hyperlipidemia, GERD, obesity, marijuana use as well as those reviewed and addressed below and in ROS. Patient still seeing endo and Cardio. Doing better with his diabetes management. Patient stopped the gabapentin because he did not want to be on meds he could get addicted to and felt it did not help. He was only on 200 mg BID at the time. Patient does continue to smoke marijuana. Past medical history, appointments, medications, allergies reviewed. Previous Medical History PAST MEDICAL HISTORY Diagnosis Date Allergic rhinitis 03/12/2013 Bilateral carotid artery stenosis 05/08/2021 04/2021: Right 0-19%, Left 20-40% Cataract of both eyes 01/09/2016 Chronic bilateral low back pain with bilateral sciatica 01/15/2011 Chronic pain of both shoulders 03/11/2009 Coronary artery disease due to lipid rich plaque 04/27/2021 Seeing [facility] Diabetic eye exam ([facility]) 01/12/2022 Last done 01/11/22 [facility] NIMESH (generalized anxiety disorder) 11/04/2019 GERD without esophagitis 11/04/2019 History of kidney stones 01/14/2013 Hypertension goal BP (blood pressure) < 140/90 05/10/2006 Kidney stones 2007 Marijuana use Mixed hyperlipidemia 03/29/2009 Neuropathy 11/04/2019 Hands and feet Obesity, Class II, BMI 35-39.9 Panic attack 11/14/2010 S/P coronary artery stent placement 04/27/2021 2 stents 04/24/2021 Subclavian artery stenosis, right ([facility]) 05/08/2021 04/2021: 50-99% Type 2 diabetes mellitus with mild nonproliferative diabetic retinopathy without macular edema ([facility]) 01/09/2016 [facility] - . Well adult exam 11/04/2019 Last [...] on File Prior to Visit Medication Sig clotrimazole (LOTRIMIN) 1 % cream omeprazole (PRILOSEC) 20 mg capsule TAKE 1 CAPSULE BY MOUTH ONCE DAILY 30 MINUTES BEFORE BREAKFAST lisinopril (ZESTRIL) 5 mg tablet Take 1 tablet by mouth once daily. Decreased by cardio 06/2023 due to low BP and dizziness aspirin 81 mg cap Take 1 tablet by mouth once daily. levothyroxine (LEVOXYL) 25 mcg tablet Take 1 tablet by mouth once daily. Take on empty stomach. ForThyroid DULoxetine (CYMBALTA) 30 mg capsule Take 1 capsule by mouth once daily. atorvastatin (LIPITOR) 40 mg tablet Take 1 tablet by mouth once daily. insulin glargine (BASAGLAR KWIKPEN U-100 INSULIN) 100 unit/mL (3 mL) Inject 26 Units subcutaneouslyevery morning. Per Endocrine, Dr. Conte insulin aspart [...] 1 tablet by mouth once daily. Per [facility] fluticasone (FLONASE) 50 mcg/actuation nasal spray Use 2 Sprays in each nostril once daily. Rinse mouth after use. clopidogrel (PLAVIX) 75 mg tablet Take 1 tablet by mouth once daily. Per [facility]. nitroglycerin sublingual (NITROQUICK) 0.4 mg SL tablet DISSOLVE ONE TABLET UNDER THE TONGUE EVERY 5MINUTES NEEDED FOR CARDIAC CHEST PAIN blood sugar diagnostic (BLOOD GLUCOSE TEST) test strip Test blood sugar(s) 2-3 times daily. Dx: Other DM Code E11.3299 Insulin: Yes Lancets lancets Test blood sugar(s) 2-3 times daily. Dx: Other DM Code E11.3299 Insulin: Yes Insulin Strang, Disposable, 31 gauge x 1/4 ndle USE [...] 2 Puffs as instructed every 4 hours asneeded. Blood-Glucose Meter (FREESTYLE LITE METER) monitoring kit Use to test blood sugar as directed. gabapentin (NEURONTIN) 100 mg capsule Take 2 capsules by mouth twice daily for 90 days. (Patient not taking: Reported on 12/12/2023) Current Facility-Administered Medications on File Prior to [...] shortness of breath CARDIOVASCULAR: Negative for chest pain since ER visit, leg swelling, hypertension, CHF or palpitations GI: No nausea, vomiting, or diarrhea and No heartburn or reflux symptoms : No history of dysuria, frequency or blood NEURO: No history of headaches, syncope, paralysis, seizures or tremors EXAM: BP 116/78 Pulse 62 Ht 178 cm (5' 10.08 ) Wt 122 kg (269 lb) BMI 38.51 kg/m Last 4 Encounter Wt Readings: Date: Wt: 12/12/2023 122 kg (269 lb) 10/22/2023 123.8 kg (273 lb) 06/11/2023 120.2 kg (265 lb) 04/12/2023 124.7 kg (275 lb) General Appearance: Well appearing, alert, in no acute distress, well-hydrated, well nourished. andObese. Neck: Supple, no adenopathy; thyroid symmetric, normal size, no bruits. Lungs: Lungs clear to auscultation. No wheezing, rhonchi, rales.. Heart: RRR without murmur, gallop, or rubs. No ectopy. Abdomen: Normal abdominal exam, Abdomen soft, non-tender. Bowel sounds normal. No masses, organomegaly. Extremities: No deformities, edema, skin discoloration, Good capillary refill. . Musculoskeletal: Muscular strength intact, No joint swelling, deformity, or tenderness. Peripheral Pulses: Normal. Neurologic: Gait normal. Sensation to light touch and crainal nerves 2-12 intact.. Health Maintenance List Colorectal Cancer Screening Never done Dilated Retinal Exam due on 01/11/2023 Influenza Vaccine(1) due on 06/28/2023 Covid-19 Vaccine(2 - season) due on 06/28/2023 BP Controlled (<130/80) due on 09/05/2023 Depression Assessment due on 10/28/2023 HbA1C due on 03/13/2024 Urine Albumin:Creatinine Ratio due on 06/11/2024 LDL Cholesterol due on 06/11/2024 Diabetic Foot Exam due on 06/11/2024 Annual PCP Team Chronic Disease Visit due on 10/22/2024 DTaP,Tdap,Td Vaccine(4 - Td or Tdap) due on 04/29/2029 Pneumococcal Vaccine(3 of 3 - PPSV23 or PCV20) due on 2040 Hepatitis B Vaccine Discontinued Hepatitis C Screening Discontinued HIV Screening Discontinued Data reviewed Component Latest Ref Rng & Units 05/08/2023 06/11/2023 09/13/2023 Protein, Total 6.3 - 8.0 g/dL 7.5 Albumin 3.9 - 4.9 g/dL 4.6 Calcium 8.5 - 10.2 mg/dL 9.8 Bilirubin, Total 0.2 - 1.3 mg/dL 0.6 Alkaline Phosphatase 38 - 113 U/L 110 AST 14 - 40 U/L 18 ALT 10 - 54 U/L 28 Glucose 74 - 99 mg/dL 148 (H) BUN 9 - 24 mg/dL 14 Creatinine 0.73 - 1.22 mg/dL 0.86 Sodium 136 - 144 mmol/L 142 Potassium 3.7 - 5.1 mmol/L 4.5 Chloride 97 - 105 mmol/L 105 CO2 22 - 30 mmol/L 24 Anion Gap 9 - 18 mmol/L 13 eGFR >=60 mL/min/1.73m 107 Total Cholesterol, Nonfasting <200 mg/dL 127 Triglycerides, Nonfasting <150 mg/dL 65 HDL Cholesterol, Nonfasting >39 mg/dL 35 (L) LDL Cholesterol, Nonfasting <100 mg/dL 79 Non HDL Cholesterol, Nonfasting <130 mg/dL 92 VLDL Cholesterol, Nonfasting <30 mg/dL 13 Total Chol/HDL Ratio, Nonfasting <5.10 mg/dL 3.63 LDL/HDL Ratio, Nonfasting <2.54 mg/dL 2.26 Creatinine, Ur Random (UCRR) 20.0 - 300.0 mg/dL 165.2 Albumin, Urine Random mg/L 45.2 Albumin/Creat Ratio <30 mg/g 27 Hemoglobin A1C 0 - 5.7 % 6.6 (A) 7.3 (A) TSH 0.270 - 4.200 mIU/L 2.920 Magnesium 1.7 - 2.3 mg/dL 1.9 A/P ASSESSMENT/PLAN: 1. 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 Diabetic eye exam (HCC) - ICD9: V72.0, 250.00, ICD10: Z01.00, E11.9 - will get updated report. 3. Hypertension goal BP (blood pressure) < 140/90 - ICD9: 401.9, ICD10: I10 - Controlled - Continue current medications - Recommend home blood pressure monitoring, to bring results to next visit - Encouraged sodium restriction, DASH or Mediterranean diet - Recommend regular aerobic exercise Check - BASIC METABOLIC PNL - LIPID PANEL, NONFASTING 4. Mixed hyperlipidemia - ICD9: 272.2, ICD10: E78.2 - await lab - Continue current medications - Counseled on healthy diet and regular exercise Check - BASIC METABOLIC PNL - LIPID PANEL, NONFASTING 5. Acquired hypothyroidism - ICD9: 244.9, ICD10: E03.9 - Instructed patient on importance of taking on an empty stomach either first thing in the morning or at bedtime. - continue current dose of Synthroid Check - TSH BLD 6. GERD without esophagitis - ICD9: 530.81, ICD10: K21.9 - Continue treatment with Prilosec 20 mg QD 7. Coronary artery disease due to lipid rich plaque - ICD9: 414.00, 414.3, ICD10: I25.10, I25.83 - management per cardio 8. Bilateral carotid artery stenosis - ICD9: 433.10, 433.30, ICD10: I65.23 - cont current tx. 9. Subclavian artery stenosis, right (HCC) - ICD9: 447.1, ICD10: I77.1 - as per #8. Needs US in the fall. 10. History of non-ST elevation myocardial infarction (NSTEMI) - ICD9: 412, ICD10: I25.2 - as per #7 11. Neuropathy - ICD9: 355.9, ICD10: G62.9 - will increase his Cymbalta to 30 mg twice a day 12. NIMESH (generalized anxiety disorder) - ICD9: 300.02, ICD10: F41.1 - as per #11 13. Marijuana use - ICD9: 305.20, ICD10: F12.90 - patient continues 14. Obesity, Class II, BMI 35-39.9 - ICD9: 278.00, ICD10: E66.9 - patient to work on life style changes for weight loss. 15. Need for vaccination - ICD9: V05.9, ICD10: Z23 - INFLUENZA VACCINE, AGE 6 MO - 64 YR, QUADRIVALENT (AFLURIA, FLULAVAL, FLUZONE): given 16. Arthralgia, unspecified joint - ICD9: 719.40, ICD10: M25.50 - CONSULT TO ORTHOPAEDICS: Dr. Seay. Requested Prescriptions Signed Prescriptions Disp Refills aspirin 81 mg cap 90 capsule 3 Sig: Take 1 tablet by mouth once daily. DULoxetine (CYMBALTA) 30 mg capsule 180 capsule 1 Sig: Take 1 capsule by mouth two times a day. levothyroxine (LEVOXYL) 25 mcg tablet 90 tablet 1 Sig: Take 1 tablet by mouth once daily. Take on empty stomach. For Thyroid F/u 6 months WAE check CMP, Lipid, UA, urine microalbumin, A1c, CC, TSH, B12 and Mg prior Darinel Simon MD documented in this encounterDunlap [facility]02-12-2024 NoteHNO ID: [id number] Author: STELLA CROSS LPN Service: ? Author Type: LICENSED NURSE Type: Progress Notes Filed: 12/09/2023 15:20 Note Text: Scan on 12/08/2023 4:32 PM by ProviderDejon PA-C: Consultation - Emergency Medicine Scan on 12/08/2023 1:42 PM by Dejon Betancourt PA-C: [facility] History of Present illness Narrative* Stella Cross LPN - 12/09/2023 3:19 PM EST Scan on 12/08/2023 4:32 PM by Dejon Betancourt PA-C: Consultation - Emergency Medicine Scan on 12/08/2023 1:42 PM by Dejon Betancourt PA-C: X-ray documented in this encounterDunlap Memorial Hospital12-26-2023 NoteHNO ID: [id number] Author: Bailey Du PA-C Service: ? Author Type: Physician [place] Type: Progress Notes Filed: 10/22/2023 6:36 PM [...] rhinitis 03/12/2013 Bilateral carotid artery stenosis 05/08/2021 04/2021: Right 0-19%, Left 20-40% Cataract of both eyes 01/09/2016 Chronic bilateral low back pain with bilateral sciatica 01/15/2011 Chronic pain of both shoulders 03/11/2009 Coronary artery disease due to lipid rich plaque 04/27/2021 Seeing [facility] Diabetic eye exam (HCC) 01/12/2022 Last done 01/11/22 [facility] NIMESH (generalized anxiety disorder) 11/04/2019 GERD without esophagitis 11/04/2019 History of kidney stones 01/14/2013 Hypertension goal BP (blood pressure) < 140/90 05/10/2006 Kidney stones 2008 Marijuana use Mixed hyperlipidemia 03/29/2009 Neuropathy 11/04/2019 Hands and feet Obesity, Class II, BMI 35-39.9 Panic attack 11/14/2010 S/P coronary artery stent placement 04/27/2021 2 stents 04/24/2021 Subclavian artery stenosis, right (HCC) 05/08/2021 04/2021: 50-99% Type 2 diabetes mellitus with mild nonproliferative diabetic retinopathy without macular edema ([facility]) 01/09/2016 [facility] - . Well adult exam 11/04/2019 Last [...] Mild Nonproliferative Diabetic Retinopathy Without Macular Edema ([facility]) Cataract of Both Eyes Obesity, Class II, Bmi 35-39.9 Nimesh (Generalized Anxiety Disorder) Gerd Without Esophagitis Marijuana [...] unit/mL (3 mL) Inje (more content not included)...[facility]12-[facility]23 NoteHNO ID: [id number] Author: Uriah Funes LPN Service: ? Author Type: ? Type: Progress Notes Filed: 10/04/2023 12:35 PM Note Text: Scan on 10/04/2023 10:59 AM by Provider, External, PA-C: Consultation - [facility]iologyOhio[facility]12-08-2023 History of Present illness Narrative* Uriah Funes LPN - 10/04/2023 11:37 AM EST Scan on 10/04/2023 10:59 AM by Provider, Dejon, PA-C: Consultation - Cardiology documented in this encounterDunlap Memorial Hospital11-16-2023 NoteHNO ID: [id number] Author: Uriah Funes LPN Service: ? Author Type: ? Type: Progress Notes Filed: 09/13/2023 9:29 PM Note Text: Scan on 09/11/2023 2:54 PM by Provider, Dejon, SURYC: Consultation - EndocrinologyOhio[facility]11-16-2023 History of Present illness Narrative* Uriah Funes LPN - 09/12/2023 1:49 PM EST Scan on 09/11/2023 2:54 PM by Provider, PREETI Ashford-C: Consultation - Endocrinology documented in this encounterDunlap Memorial Hospital10-24-2023 Miscellaneous Notes* Telephone Encounter - Krish Aguilar MA - 08/20/2023 5:23 PM EDT Patient notified and voiced understanding. Krish Aguilar MA * Telephone Encounter - Darinel Simon MD - 08/20/2023 4:50 PM EDT Let patient know that if concerned for a UTI he needs seen. Either in the office or our express care. The following approved medication requests have been transmitted electronically. Requested Prescriptions Signed Prescriptions Disp Refills omeprazole (PRILOSEC) 20 mg capsule 90 capsule 1 Sig: TAKE 1 CAPSULE BY MOUTH ONCE DAILY 30 MINUTES BEFORE BREAKFAST Authorizing Provider: DARINEL SIMON MD * Telephone Encounter - Ladonna Keller RN - 08/20/2023 11:12 AM EDT Patient calling with 2 requests: Requesting refill [...] completed and he did have an infection. Pili treated him with Macrobid for 7 days. Pt asking if he should push fluids/water and see if urine odor improves, or if PCP would be agreeable to placing urine labs for him to have completed now? He is concerned he has another UTI. Please advise patient. Thank you. documented in this encounterDunlap [facility] Hospital09-08-2023 History of Present illness Narrative* Jyothi Hodge Ma - 07/05/2023 11:48 AM EDT Scan on 07/05/2023 11:18 AM by Provider, JULISSA Ashford: Consultation - Cardiology View External Labs - Chemistry [ID [id number]] documented in this encounterDunlap Memorial Hospital08-18-2023 Miscellaneous Notes* Telephone Encounter - Karmen Geiger RN - 06/14/2023 10:14 AM EDT Pt called and is notified of providers results and instructions. Pt voices understanding. Karmen Geiger RN * Telephone Encounter - Pili Hatch PA-C - 06/14/2023 9:51 AM EDT Let patient know that his urine did [...] and liver are normal. documented in this encounterDunlap Memorial Hospital08-15-2023 Instructions* Patient Instructions* Pili Hatch PA-C - 06/11/2023 9:54 AM EDT Please set up your eye exam. documented in this encounterDunlap Memorial Hospital08-15-2023 History of Present illness Narrative* Pili Hatch PA-C - 06/11/2023 9:52 AM EDT Chief Complaint Patient presents with: Yearly Exam HPI Michael Youngblood is a 47 year old male who presents here today for physical. Patient with hx of DM 2, diabetic retinopathy, NIMESH with panic attacks, HTN, Hyperlipidemia, GERD, obesity, marijuana use as well as those reviewed and addressed below and in ROS. Patient still seeing endo. Doing better with his diabetes management. Had an episode a few weeks ago where he noted bright red blood in urine. Also had odor. But no painor burning. Has not seen blood since but [...] due to lipid rich plaque 04/27/2021 Seeing [facility] Diabetic eye exam (HCC) 01/12/2022 Last done 01/11/22 [facility] NMIESH (generalized anxiety disorder) 11/04/2019 GERD without esophagitis [...] mild nonproliferative diabetic retinopathy without macular edema ([facility]) 01/09/2016 [facility] - . Well adult exam 11/04/2019 Last [...] 100 unit/mL (3 mL) Inject 26 Units subcutaneouslyevery morning. Per EndocrineDr. Conte insulin aspart U-100 (NOVOLOG FLEXPEN U-100 INSULIN) 100 unit/mL (3 mL) Inject 18 Units subcutaneously three times daily before meals. And 9 units with snacks. Per Endocrine Dr. Conte dulaglutide (TRULICITY) 1.5 mg/0.5 mL pen injector Inject 1.5 mg subcutaneously one time a week. Inject once per week. Discard Pen After. Per endoDr. Conte isosorbide mononitrate ER (IMDUR) 60 mg 24 hr tablet Take 1 tablet by mouth once daily. Per [facility] fluticasone (FLONASE) 50 mcg/actuation nasal spray Use 2 Sprays in each nostril once daily. Rinse mouth after use. clopidogrel (PLAVIX) 75 mg tablet Take 1 tablet by mouth once daily. Per [facility]. nitroglycerin sublingual (NITROQUICK) 0.4 mg SL tablet DISSOLVE ONE TABLET UNDER THE TONGUE EVERY 5MINUTES NEEDED FOR CARDIAC CHEST PAIN blood sugar diagnostic (BLOOD GLUCOSE TEST) test strip Test blood sugar(s) 2-3 times daily. Dx: Other DM Code E11.3299 Insulin: Yes Lancets lancets Test blood sugar(s) 2-3 times daily. Dx: Other DM Code E11.3299 Insulin: Yes Insulin Strang, Disposable, 31 gauge x 1/4 ndle USE [...] 2 Puffs as instructed every 4 hours asneeded. Blood-Glucose Meter (FREESTYLE LITE METER) monitoring kit [...] without macular edema, unspecified laterality, unspecified whether snf insulin use (HCC) - ICD9: 250.50, 362.04, [...] check TSH today - TSH BLD 11. NIMESH (generalized anxiety disorder) - ICD9: 300.02, ICD10: [...] consider EGD. - CONSULT TO GENERAL SURGERY Pili Hatch PA-C documented in this encounterDunlap Memorial Hospital08-02-2023 Miscellaneous Notes* Addendum Note - Darinel Simon MD - 05/29/2023 6:32 PM EDTAddended by: DARINEL SIMON on: 05/29/2023 06:32 PM Modules accepted: Orders * Telephone Encounter - Darinel Simon MD - 05/29/2023 6:31 PM EDT Let patient know script for levothyroxine sent in to get him to his appt on 06/10/2023. The following approved medication requests have been transmitted electronically. Requested Prescriptions Signed Prescriptions Disp Refills levothyroxine (LEVOXYL) 25 mcg tablet 14 tablet 0 Sig: Take 1 tablet by mouth once daily. Take on empty stomach. For Thyroid Authorizing Provider: DARINEL SIMON Refused Prescriptions Disp Refills levothyroxine (LEVOXYL) 25 mcg tablet 90 tablet 1 Sig: Take 1 tablet by mouth once daily. Take on empty stomach. For Thyroid Refused By: DARINEL SIMON Reason for Refusal: Patient needs appointment Darinel Simon MD * Telephone Encounter - Jenelle Eaton LPN - 05/29/2023 3:58 PM EDT Spoke with pt and information listed below given. Pt reports he did not realize he had apt and missed it. Apt has been rescheduled for 06/11/23. Checking to see if you would refill thyroid medication till he comes in. Please advise pt. I had closed this before routing back to provider. Jenelle Eaton LPN * Telephone Encounter - Jenelle Eaton LPN - 05/29/2023 8:13 AM EDT 1st attempt to reach pt by phone without success. No voice mail set up. Will try later. Jenelle Eaton LPN * Telephone Encounter - Darinel Simon MD - 05/28/2023 9:55 PM EDT Let patient know refill for levothyroxine denied. Was to be seen 03/15/2023 and No showed. * Telephone Encounter - Charanjit Pickard Ma - 05/28/2023 4:33 PM EDT BRITTNEE: 12/04/2022 Last refill: 12/04/2022 QTY: 90 Refills: 1 * Telephone Encounter - Nohemi Orlando - 05/28/2023 4:22 PM EDT Patient has been identified by name and date of : Yes Requested Prescriptions Pending Prescriptions Disp Refills levothyroxine (LEVOXYL) 25 mcg tablet 90 tablet 1 Sig: Take 1 tablet by mouth once daily. Take on empty stomach. For Thyroid RX INSTRUCTIONS: Patient aware RX will be sent to pharmacy. No need to notify patient. Nohemi Reyna documented in this encounterDunlap [facility] Hospital08-01-2023 Miscellaneous Notes* Telephone Encounter - Jyothi Hodge Ma - 05/28/2023 10:07 AM EDT Last office visit: 12/25/22 F/u scheduled: none Jyothi Hodge Ma documented in this encounterDunlap [facility] Hospital07-14-2023 History of Present illness Narrative* Annabelle Darling Ma - 05/10/2023 10:06 AM EDT Scan on 05/08/2023 2:24 PM by Provider, External, SURYC: Consultation - Endocrinology documented in this encounterDunlap Memorial Hospital05-09-2023 Miscellaneous Notes* Telephone Encounter - Krish Aguilar MA - 03/05/2023 8:22 AM EDT Patient has been identified by name and date of : Yes Requested Prescriptions Pending Prescriptions Disp Refills isosorbide mononitrate ER (IMDUR) 60 mg 24 hr tablet Sig: Take 1 tablet by mouth once daily. Per [facility] omeprazole (PRILOSEC) 20 mg capsule 90 capsule 0 Sig: TAKE ONE CAPSULE BY MOUTH ONCE DAILY 1/2 HOUR BEFORE BREAKFAST RX INSTRUCTIONS: Patient aware RX will be sent to pharmacy. No need to notify patient. Krish Aguilar MA Brittnee 11/2022 Nov 02/2023 Last refill; 10/2022 * Telephone Encounter - Nohemi Reyna - 03/04/2023 2:24 PM EDT Patient has been identified by name and date of : Yes Requested Prescriptions Pending Prescriptions Disp Refills isosorbide mononitrate ER (IMDUR) 60 mg 24 hr tablet Sig: Take 1 tablet by mouth once daily. Per [facility] omeprazole (PRILOSEC) 20 mg capsule 90 capsule 0 Sig: TAKE ONE CAPSULE BY MOUTH ONCE DAILY 1/2 HOUR BEFORE BREAKFAST RX INSTRUCTIONS: Patient aware RX will be sent to pharmacy. No need to notify patient. Nohemi Sandra Pss documented in this encounterDunlap Memorial Hospital04-13-2023 History of Present illness Narrative* Uriah Funes LPN - 02/07/2023 7:02 AM EDT Scan on 02/06/2023 2:04 PM by External Provider: Consultation - Endocrinology documented in this encounterDunlap Memorial Hospital03-30-2023 History of Present illness Narrative* Krish Aguilar MA - 01/24/2023 3:30 PM EDT Scan on 01/24/2023 11:04 AM by External Provider: Consultation - Cardiology Krish Aguilar MA documented in this encounterDunlap Memorial Hospital03-09-2023 History of Present illness Narrative* Krish Aguilar MA - 01/03/2023 3:12 PM EST Scan on 01/01/2023 4:16 PM by External [...] 01/02/2023 6:03 PM by External Provider: Echo Krish Aguilar MA documented in this encounterDunlap Memorial Hospital03-08-2023 History of Present illness Narrative* Krish Aguilar MA - 01/02/2023 3:43 PM EST Scan on 01/02/2023 12:18 PM by External Provider: Consultation - Emergency Medicine Scan on 01/02/2023 11:05 AM by External Provider: Cardiac Cath Do you need to see patient for follow up? Krish Aguilar MA documented in this encounterDunlap Memorial Hospital02-28-2023 History of Present illness Narrative* Pili Hatch PA-C - 12/25/2022 10:53 AM EST Chief Complaint Patient presents with: Follow Up: 3 wk FU dizziness HPI Michael Youngblood is a 47 year old male who presents here today for Above Complaints.. Patient states he continues to have lightheaded spells that come on around 1pm with pressure behindhis eyes and in his ears. Patient hasn't [...] due to lipid rich plaque 04/27/2021 Seeing [facility] Diabetic eye exam (HCC) 01/12/2022 Last done 01/11/22 [facility] NIMESH (generalized anxiety disorder) 11/04/2019 GERD without esophagitis [...] mild nonproliferative diabetic retinopathy without macular edema ([facility]) 01/09/2016 [facility] - . Well adult exam 11/04/2019 Last [...] mouth once daily. Take on empty stomach. ForThyroid omeprazole (PRILOSEC) 20 mg capsule TAKE ONE [...] 100 unit/mL (3 mL) Inject 25 Units subcutaneouslyevery morning. Per Endocrine, Dr. Conte insulin aspart [...] DISSOLVE ONE TABLET UNDER THE TONGUE EVERY 5MINUTES NEEDED FOR CARDIAC CHEST PAIN Blood Pressure Monitor (BLOOD PRESSURE KIT) Take blood pressure a few days a week. Dx: I10 blood sugar diagnostic (BLOOD GLUCOSE TEST) test strip Test blood sugar(s) 2-3 times daily. Dx: Other DM Code E11.3299 Insulin: Yes Lancets lancets Test blood sugar(s) 2-3 times daily. Dx: Other DM Code E11.3299 Insulin: Yes Insulin Strang, Disposable, 31 gauge x 1/4 ndle USE [...] 2 Puffs as instructed every 4 hours asneeded. Blood-Glucose Meter (FREESTYLE LITE METER) monitoring kit [...] in no acute distress, well-hydrated, well nourished. andObese. Lungs: Lungs clear to auscultation. No wheezing, [...] hpi - Goal of BP <130/80 3. NIMESH (generalized anxiety disorder) - ICD9: 300.02, ICD10: F41.1 Will continue at this dose of cymbalta. Follow up prn. Pili Hatch PA-C documented in this encounterDunlap Memorial Hospital02-09-2023 Miscellaneous Notes* Telephone Encounter - Krish Aguilar MA - 12/06/2022 8:29 AM EST Patient notified and voiced understanding. Krish Aguilar MA * Telephone Encounter - ZENY Pollock - 12/05/2022 2:58 PM EST TC to patient with no answer. Unable to leave as mailbox has not been set up. Please try again later. ZENY Pollock * Telephone Encounter - Pili Hatch PA-C - 12/05/2022 2:03 PM EST Let patient know that overall echo appears stable. And blood work is normal. Continue as we discussed. documented in this encounterDunlap Memorial Hospital02-07-2023 History of Present illness Narrative* Pili Hatch PA-C - 12/04/2022 9:48 AM EST Chief Complaint Patient presents with: Dizziness: Starts [...] due to lipid rich plaque 04/27/2021 Seeing [facility] Diabetic eye exam (HCC) 01/12/2022 Last done 01/11/22 [facility] NIMESH (generalized anxiety disorder) 11/04/2019 GERD without esophagitis 11/04/2019 History of kidney stones 01/14/2013 Hypertension goal BP (blood pressure) < 140/90 05/10/2006 Kidney stones 2008 Marijuana use Mixed hyperlipidemia 03/29/2009 Neuropathy 11/04/2019 Hands and feet Obesity, Class II, BMI 35-39.9 Panic attack 11/14/2010 S/P coronary artery stent placement 04/27/2021 2 stents 04/24/2021 Subclavian artery stenosis, right ([facility]) 05/08/2021 [place] 04/2021: 50-99% Type 2 diabetes mellitus with mild nonproliferative diabetic retinopathy without macular edema ([facility]) 01/09/2016 [facility] - . Well adult exam 11/04/2019 Last [...] 1 tablet by mouth once daily. Per [facility]. levothyroxine (LEVOXYL) 25 mcg tablet Take 1 tablet by mouth once daily. Take on empty stomach. ForThyroid insulin glargine (BASAGLAR KWIKPEN U-100 INSULIN) 100 unit/mL (3 mL) Inject 25 Units subcutaneouslyevery morning. Per Endocrine, Dr. Conte insulin aspart [...] DISSOLVE ONE TABLET UNDER THE TONGUE EVERY 5MINUTES NEEDED FOR CARDIAC CHEST PAIN Blood Pressure Monitor (BLOOD PRESSURE KIT) Take blood pressure a few days a week. Dx: I10 blood sugar diagnostic (BLOOD GLUCOSE TEST) test strip Test blood sugar(s) 2-3 times daily. Dx: Other DM Code E11.3299 Insulin: Yes Lancets lancets Test blood sugar(s) 2-3 times daily. Dx: Other DM Code E11.3299 Insulin: Yes Insulin Strang, Disposable, 31 gauge x 1/4 ndle USE [...] 2 Puffs as instructed every 4 hours asneeded. Blood-Glucose Meter (FREESTYLE LITE METER) monitoring kit [...] in no acute distress, well-hydrated, well nourished. andObese. Ears: TMs bulging with distorted light reflex. [...] Advised patient to also discuss with cardio. Pili Hatch PA-C I spent a total of 50 minutes on the date of the service which included preparing to see the patient, [id number] patient care, completing clinical documentation, obtaining and/or reviewing separately obtained history, performing a medically appropriate examination, counseling and educating the pat ient/family/caregiver, ordering medications, tests, or procedures, and communicating results to thepatient/family/caregiver. documented in this encounterDunlap Memorial Hospital02-06-2023 Miscellaneous Notes* Telephone Encounter - Jyothi Hodge Ma - 12/03/2022 2:16 PM EST Last office visit: 09/05/22 F/u scheduled: 12/04/22 with Pili Hodge Ma * Telephone Encounter - Betsey Hidalgo Pss - 12/03/2022 1:37 PM EST Patient has been identified by name and date of : Yes Requested Prescriptions Pending Prescriptions Disp Refills levothyroxine (LEVOXYL) 25 mcg tablet 90 tablet 0 Sig: Take 1 tablet by mouth once daily. Take on empty stomach. For Thyroid RX INSTRUCTIONS: Patient aware RX will be sent to pharmacy. No need to notify patient. Betsey Hidalgo Pss documented in this encounterDunlap Memorial Hospital01-31-2023 Miscellaneous Notes* Telephone Encounter - Xuan Sinha Pss - 11/27/2022 10:44 AM EST Pharmacy verified in [employer] Patient has been identified by name and [...] advise. Xuan Sinha Pss documented in this encounterDunlap Memorial Hospital01-27-2023 Miscellaneous Notes* Telephone Encounter - Krish Aguilar MA - 11/23/2022 2:16 PM EST Scan on 11/22/2022 1:47 PM by External Provider: Consultation - PT/OT/Speech Please review recent PT evaluation. Krish Aguilar MA documented in this encounterDunlap Memorial Hospital11-09-2022 Instructions* Patient Instructions* Darinel Simon MD - 09/05/2022 8:42 AM EST Please get labs and urine test done on or after 02/22/2023 prior to your next visit. documented in this encounterDunlap Memorial Hospital11-09-2022 History of Present illness Narrative* Darinel Simon MD - 09/05/2022 7:50 AM EST Chief Complaint Patient presents with: [facility] F/U [facility] Michaelkeily Youngblood is a 47 year old male who presents here today for ER Follow Up.. Patient with hx of DM 2, diabetic retinopathy, NIMESH with panic attacks, HTN, Hyperlipidemia, GERD, obesity, marijuana use as well as those reviewed and addressed below and in ROS. Patient presented to [facility] ER on 08/28/2022 with C/O chest [...] due to lipid rich plaque 04/27/2021 Seeing [facility] NIMESH (generalized anxiety disorder) 11/04/2019 GERD without esophagitis [...] mild nonproliferative diabetic retinopathy without macular edema ([facility]) 01/09/2016 [facility] - . Well adult exam 11/04/2019 Last [...] mouth once daily. Per [facility]. levothyroxine (LEVOXYL) 25 mcg tablet Take 1 tablet by mouth once daily. Take on empty stomach. ForThyroid omeprazole (PRILOSEC) 20 mg capsule TAKE ONE CAPSULE BY MOUTH ONCE DAILY 1/2 HOUR BEFORE BREAKFAST FLUoxetine (PROZAC) 40 mg capsule Take 1 capsule by mouth once daily. insulin glargine (BASAGLAR KWIKPEN U-100 INSULIN) 100 unit/mL (3 mL) Inject 25 Units subcutaneouslyevery morning. Per Endocrine, Dr. Conte insulin aspart [...] DISSOLVE ONE TABLET UNDER THE TONGUE EVERY 5MINUTES NEEDED FOR CARDIAC CHEST PAIN Blood Pressure Monitor (BLOOD PRESSURE KIT) Take blood pressure a few days a week. Dx: I10 blood sugar diagnostic (BLOOD GLUCOSE TEST) test strip Test blood sugar(s) 2-3 times daily. Dx: Other DM Code E11.3299 Insulin: Yes Lancets lancets Test blood sugar(s) 2-3 times daily. Dx: Other DM Code E11.3299 Insulin: Yes Insulin Strang, Disposable, 31 gauge x 1/4 ndle USE [...] 2 Puffs as instructed every 4 hours asneeded. Blood-Glucose Meter (FREESTYLE LITE METER) monitoring kit [...] in no acute distress, well-hydrated, well nourished. andObese. Eyes: Anicteric sclera. Pupils are equally round [...] SCREENING Discontinued HIV SCREENING Discontinued Data reviewed [facility] discharge summary 08/30/2022 A/P ASSESSMENT/PLAN: 1. [...] without macular edema, unspecified laterality, unspecified whether long term care pharmacist insulin use (HCC) - ICD9: 250.50, 362.04, [...] ICD10: I77.1 - as per #9 11. NIMESH (generalized anxiety disorder) - ICD9: 300.02, ICD10: [...] micro albumin, CBC, B12, Mg, TSH prior Darinel Simon MD documented in this encounterDunlap Memorial Hospital11-07-2022 History of Present illness Narrative* Uriah Funes LPN - 09/03/2022 1:09 PM EST 2nd attempt to contact pt for TCM. No answer and no vm. Uriah Funes LPN * Uriah Funes LPN - 08/31/2022 11:16 AM EDT Attempted to contact pt. No answer and no vm. Will need to try again. Need to do TCM questions withpt. Pt has appointment 09/05/[address] Simon. Discharge Summary is on nurse desk in Pili's office. Uriah Funes LPN ' documented in this encounterDunlap Memorial Hospital10-31-2022 Miscellaneous Notes* Telephone Encounter - Krish Aguilar MA - 08/27/2022 12:51 PM EDT Patient has been identified by name and [...] to pharmacy. No need to notify patient. Krish Aguilar MA Brittnee: 10/2021 Nov; 08/2022 Last refill: 04/2022 * Telephone Encounter - Xuan Sinha Pss - 08/27/2022 12:36 PM EDT Pharmacy verified in Epic Patient has been [...] advise. Xuan Sinha Pss documented in this encounterDunlap Memorial Hospital07-28-2022 Miscellaneous Notes* Telephone Encounter - Pili Hatch PA-C - 05/24/2022 12:38 PM EDT Please help to reschedule. * Telephone Encounter - Krish Aguilar MA - 05/24/2022 12:29 PM EDT Patient has been identified by name and [...] to pharmacy. No need to notify patient. Krish Aguilar MA Brittnee: 10/2021 Nov: 04/2022 cancelled - needs rescheduled. Last refill: 08/2021 * [facility]/24/[facility]22 12:12 PM EDT Patient has been identified by name and [...] to pharmacy. No need to notify patient. Ynes Voss [facility] documented in this encounterDunlap Memorial Hospital12-03-2013 History of Past illness Narrative* Problem Noted [...] of this encounter (statuses as of 05/24/2022) [facility] Narrative* Problem Noted [...] of this encounter (statuses as of 08/27/2022) [facility] Narrative* Problem Noted [...] of this encounter (statuses as of 09/03/2022) [facility] Narrative* Problem Noted [...] of this encounter (statuses as of 09/06/2022) [facility] Narrative* Problem Noted [...] of this encounter (statuses as of 11/25/2022) [facility] Narrative* Problem Noted [...] of this encounter (statuses as of 11/27/2022) [facility] Narrative* Problem Noted [...] of this encounter (statuses as of 12/04/2022) [facility] Narrative* Problem Noted [...] of this encounter (statuses as of 12/04/2022) [facility] Narrative* Problem Noted [...] of this encounter (statuses as of 12/06/2022) [facility] Narrative* Problem Noted [...] of this encounter (statuses as of 12/25/2022) [facility] Narrative* Problem Noted [...] of this encounter (statuses as of 01/03/2023) [facility] Narrative* Problem Noted [...] of this encounter (statuses as of 01/03/2023) [facility] Narrative* Problem Noted [...] of this encounter (statuses as of 01/25/2023) [facility] N[facility]ative* Problem Noted [...] of this encounter (statuses as of 02/08/2023) [facility]* Problem Noted [...] of this encounter (statuses as of 03/05/2023) [facility]* Problem Noted [...] of this encounter (statuses as of 05/12/2023) [facility]* Problem Noted [...] of this encounter (statuses as of 05/29/2023) [facility] N[facility]ative* Problem Noted [...] of this encounter (statuses as of 05/30/2023) [facility]* Problem Noted [...] of this encounter (statuses as of 06/12/2023) [facility]* Problem Noted [...] of this encounter (statuses as of 06/14/2023) [facility] N[facility]* Problem Noted [...] of this encounter (statuses as of 07/08/2023) [facility]* Problem Noted [...] of this encounter (statuses as of 08/21/2023) [facility]* Problem Noted [...] of this encounter (statuses as of 09/14/2023) [facility]* Problem Noted [...] of this encounter (statuses as of 10/04/2023) [facility] Narrative* Problem Noted [...] as of this encounter (statuses as of 12/09/2023) [facility]* Diagnosis History of non-ST elevation myocardial infarction (NSTEMI)- Primary Old myocardial infarction Coronary artery disease due to lipid rich plaque 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, unspecified laterality, unspecified whether snf insulin use (HCC) Diabetic eye exam (HCC) [...] right (HCC) Atherosclerosis of other specified arteries NIMESH (generalized anxiety disorder) Generalized anxiety disorder Obesity, Class II, BMI 35-39.9 Obesity, unspecified Medication management Encounter for long-term (current) use of other medications Acquired hypothyroidism Unspecified hypothyroidism documented in this encounter [facility]* Diagnosis Positional lightheadedness- Primary Dizziness and giddiness Near syncope Syncope and collapse Vertigo Dizziness and giddiness Coronary artery disease due to lipid rich plaque History of non-ST elevation myocardial infarction (NSTEMI) Old myocardial infarction Hypertension goal BP (blood pressure) < 140/90 Unspecified essential hypertension Subacute sinusitis, unspecified location [facility] Diagnosis Positional lightheadedness- Primary Dizziness and giddiness Hypertension goal BP (blood pressure) < 140/90 Unspecified essential hypertension NIMESH (generalized anxiety disorder) Generalized anxiety disorder documented in this encounter [facility]* Diagnosis 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, unspecified laterality, unspecified whether long term care pharmacist insulin use (HCC) documented in this encounter [facility]* Diagnosis Well adult exam- Primary Routine general medical examination at a health care facility Hypertension goal BP (blood pressure) < 140/90 Unspecified essential hypertension Mixed hyperlipidemia 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, unspecified laterality, unspecified whether snf insulin use (HCC) Coronary artery disease due to lipid rich plaque History of non-ST elevation myocardial infarction (NSTEMI) Old myocardial infarction S/P coronary artery stent placement Postsurgical percutaneous transluminal coronary angioplasty status Subclavian artery stenosis, right (HCC) Atherosclerosis of other specified arteries GERD without esophagitis Esophageal reflux Acquired hypothyroidism Unspecified hypothyroidism NIMESH (generalized anxiety disorder) Generalized anxiety disorder Diabetic eye exam (HCC) Type II or unspecified type diabetes mellitus without mention of complication, not stated as uncontrolled Gross hematuria Screening for colon cancer Special screening for malignant neoplasms, colon Medication management Encounter for long-term (current) use of other medications Epigastric pain Abdominal pain, epigastric documented in this encounter [facility]* Diagnosis Recurrent UTI (urinary tract infection)- Primary Urinary tract infection, site not specified documented in this encounter [facility] note* Diagnosis 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, unspecified laterality, unspecified whether snf insulin use (HCC)- Primary Diabetic eye exam (HCC) Type II or unspecified type diabetes mellitus without mention of complication, not stated as uncontrolled Hypertension goal BP (blood pressure) < 140/90 Unspecified essential hypertension Mixed hyperlipidemia Acquired hypothyroidism Unspecified hypothyroidism GERD without esophagitis Esophageal reflux Coronary artery disease due to lipid rich plaque Bilateral carotid artery stenosis Occlusion and stenosis of carotid artery without mention of cerebral infarction Subclavian artery stenosis, right (HCC) Atherosclerosis of other specified arteries History of non-ST elevation myocardial infarction (NSTEMI) Old myocardial infarction Neuropathy Mononeuritis of unspecified site NIMESH (generalized anxiety disorder) Generalized anxiety disorder Marijuana use Cannabis abuse, unspecified Obesity, Class II, BMI 35-39.9 Obesity, unspecified Need for vaccination Need for prophylactic vaccination and inoculation against unspecified single disease Arthralgia, unspecified joint Medication management Encounter for long-term (current) use of other medications documented in this encounter [facility]* Diagnosis GERD (gastroesophageal reflux disease)- Primary Esophageal reflux Panic attacks Panic disorder without agoraphobia Type 2 diabetes mellitus with proteinuria or albuminuria Type II or unspecified type diabetes mellitus with renal manifestations, not stated as uncontrolled BENIGN HYPERTENSION Essential hypertension, benign Type II or unspecified type diabetes mellitus without mention of complication, uncontrolled HYPERLIPIDEMIA NEC/NOS Other and unspecified hyperlipidemia Uncontrolled type 2 diabetes mellitus with proteinuria or albuminuria Type II or unspecified type diabetes mellitus with renal manifestations, uncontrolled Skin bulla Other specified disorder of skin Balanitis circinata Balanoposthitis OBESITY NOS Obesity, unspecified Mixed hyperlipidemia- Primary Screening for depression Acquired hypothyroidism Unspecified hypothyroidism Screening for colon cancer Special screening for malignant neoplasms, colon 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, unspecified laterality, unspecified whether long term care pharmacist insulin use (HCC) GERD without esophagitis Esophageal reflux Coronary artery disease due to lipid rich plaque NIMESH (generalized anxiety disorder) Generalized anxiety disorder Obesity, Class II, BMI 35-39.9 Obesity, unspecified Well adult exam Routine general medical examination at a health care facility Medication management Encounter for long-term (current) use of other medications Pre-ulcerative corn or callous Corns and callosities documented in this encounter [facility]* Diagnosis GERD (gastroesophageal reflux disease)- Primary Esophageal reflux Panic attacks Panic disorder without agoraphobia Type 2 diabetes mellitus with proteinuria or albuminuria Type II or unspecified type diabetes mellitus with renal manifestations, not stated as uncontrolled BENIGN HYPERTENSION Essential hypertension, benign Type II or unspecified type diabetes mellitus without mention of complication, uncontrolled HYPERLIPIDEMIA NEC/NOS Other and unspecified hyperlipidemia Uncontrolled type 2 diabetes mellitus with proteinuria or albuminuria Type II or unspecified type diabetes mellitus with renal manifestations, uncontrolled Skin bulla Other specified disorder of skin Balanitis circinata Balanoposthitis OBESITY NOS Obesity, unspecified Leukocytosis, unspecified type- Primary documented in [facility] encounter [facility]* Diagnosis GERD (gastroesophageal reflux disease)- Primary Esophageal reflux Panic attacks Panic disorder without agoraphobia Type 2 diabetes mellitus with proteinuria or albuminuria Type II or unspecified type diabetes mellitus with renal manifestations, not stated as uncontrolled BENIGN HYPERTENSION Essential hypertension, benign Type II or unspecified type diabetes mellitus without mention of complication, uncontrolled HYPERLIPIDEMIA NEC/NOS Other and unspecified hyperlipidemia Uncontrolled type 2 diabetes mellitus with proteinuria or albuminuria Type II or unspecified type diabetes mellitus with renal manifestations, uncontrolled Skin bulla Other specified disorder of skin Balanitis circinata Balanoposthitis OBESITY NOS Obesity, unspecified Bacterial sinusitis- Primary Unspecified sinusitis (chronic) Leukocytosis, unspecified type documented [facility] encounter [facility]* Diagnosis GERD (gastroesophageal reflux disease)- Primary Esophageal reflux Panic attacks Panic disorder without agoraphobia Type 2 diabetes mellitus with proteinuria or albuminuria Type II or unspecified type diabetes mellitus with renal manifestations, not stated as uncontrolled BENIGN HYPERTENSION Essential hypertension, benign Type II or unspecified type diabetes mellitus without mention of complication, uncontrolled HYPERLIPIDEMIA NEC/NOS Other and unspecified hyperlipidemia Uncontrolled type 2 diabetes mellitus with proteinuria or albuminuria Type II or unspecified type diabetes mellitus with renal manifestations, uncontrolled Skin bulla Other specified disorder of skin Balanitis circinata Balanoposthitis OBESITY NOS Obesity, unspecified Positive colorectal cancer screening using Cologuard test- Primary documented in this encounter [facility] note* Diagnosis GERD (gastroesophageal reflux disease)- Primary Esophageal reflux Panic attacks Panic disorder without agoraphobia Type 2 diabetes mellitus with proteinuria or albuminuria Type II or unspecified type diabetes mellitus with renal manifestations, not stated as uncontrolled BENIGN HYPERTENSION Essential hypertension, benign Type II or unspecified type diabetes mellitus without mention of complication, uncontrolled HYPERLIPIDEMIA NEC/NOS Other and unspecified hyperlipidemia Uncontrolled type 2 diabetes mellitus with proteinuria or albuminuria Type II or unspecified type diabetes mellitus with renal manifestations, uncontrolled Skin bulla Other specified disorder of skin Balanitis circinata Balanoposthitis OBESITY NOS Obesity, unspecified Encounter for screening for malignant neoplasm of colon- Primary Special screening for malignant neoplasms, colon Positive colorectal cancer screening using Cologuard test documented in this encounter [facility] for referral (narrative)* Outpatient Procedure (Routine) - Authorized Specialty Diagnoses / Procedures Referred By Contac t Referred To Contact [facility] [place] Diagnoses Bilateral carotid artery stenosis Procedures US CAROTID ARTERIES JUAN VAS LAB DUPLEX SCAN EXTRACRANIAL ART COMPL BI STUDY Darinel Simon MD [address] [place] [address] [facility] [address] [address] Referral ID Status Reason Start Date Expiration Date Visits Requested Visits Authorized [id number] Authorized Auto-Generat ed Referral 09/05/2022 09/05/2023 1 1 [facility] for referral (narrative)* Outpatient Procedure (Routine) - Authorized Specialty Diagnoses / Procedures Referred By Contac t Referred To Contact [facility] [place] Diagnoses Positional lightheadedness Near syncope Coronary artery disease due to lipid rich plaque History of non-ST elevation myocardial infarction (NSTEMI) Hypertension goal BP (blood pressure) < 140/90 Procedures US CAROTID ARTERIES JUAN VAS LAB DUPLEX SCAN EXTRACRANIAL ART COMPL BI STUDY Pili Hatch PA-C [address] [place] [address] [facility] [address] [address] Referral ID Status Reason Start Date Expiration Date Visits Requested Visits Authorized [id number] Authorized Auto-Generat ed Referral 12/04/2022 12/04/2023 1 1 * Outpatient Procedure (Routine) - Closed Specialty Diagnoses / Procedures Referred By Contac t Referred To Contact [facility] [place] Diagnoses Positional lightheadedness Near syncope Coronary artery disease due to lipid rich plaque History of non-ST elevation myocardial infarction (NSTEMI) Hypertension goal BP (blood pressure) < 140/90 Procedures ECHO ECHO TTHRC R-T 2D W/WOM-MODE COMPL SPEC&COLR D Pili Hatch PA-C [address] [place] [address] [facility] [address] [address] Referral ID Status Reason Start Date Expiration Date V isits Requested Visits Authorized [id number] Closed Auto-Generate d Referral 12/04/2022 02/02/2023 1 1 [facility] Procedure (Routine) - Authorized Specialty Diagnoses / Procedures Referred By Contac t Referred To Contact [facility] Diagnoses Positive colorectal cancer screening using Cologuard test Procedures EGD DIAGNOSTIC ESOPHAGOGASTRODUODENOSC OPY TRANSORAL DIAGNOSTIC Fanny Reyna APRN.MORTGAGE ANALYST [address] [place] [address] [facility] [address] [address] Referral ID Status Reason Start Date Expiration Date Visits Requested Visits Authorized [id number] Authorized Auto-Generat ed Referral 07/22/2024 07/22/2025 1 1 * Outpatient Procedure (Routine) - Authorized Specialty Diagnoses / Procedures Referred By Contac t Referred To Contact [facility] Diagnoses Positive colorectal cancer screening using Cologuard test Encounter for screening for malignant neoplasm of colon Procedures COLONOSCOPY DIAGNOSTIC COLONOSCOPY FLX DX W/COLLJ SPEC WHEN PFFanny Pryor APRN.MORTGAGE ANALYST [address] [facility] [place] [place] [address] [facility] [address] [address] Referral ID Status Reason Start Date Expiration Date Visits Requested Visits Authorized [id number] Authorized Auto-Generat ed Referral 07/22/2024 07/22/2025 1 1 [facility] Reason for Referral Specialty Diagnoses / Procedures Referred By Contac t Referred To Contact General Surgery Diagnoses Screening for colon cancer Epigastric pain Procedures CONSULT TO GENERAL SURGERY OFFICE/OUTPATIENT NEW HIGH MDM 60-74 MINUTES Pili Hatch PA-C [address] [place] [address] Referral ID Status Reason Start Date Expiration Date Visits Requested Visits Authorized [id number] Authorized PCP Requested Referral 06/11/2023 06/10/2024 1 1 Specialty Diagnoses / Procedures Referred By Contac t Referred To Contact [facility] Diagnoses Gross hematuria Procedures US KIDNEY/BLADDER US RETROPERITONEAL REAL TIME W/IMAGE COMPLETE Pili Hatch PA-C [address] [place] [address] [facility] Referral ID Status Reason Start Date Expiration Date Visits Requested Visits Authorized [id number] Authorized Auto-Generat ed Referral 06/11/2023 07/10/2024 1 1 Specialty Diagnoses / Procedures Referred By Contac t Referred To Contact Orthopedics Diagnoses Arthralgia, unspecified joint Procedures CONSULT TO ORTHOPAEDICS OFFICE/OUTPATIENT [facility] 60 MINUTES Darinel Simon MD [address] [place] [id number] Referral ID Status Reason Start Date Expiration Date Visits Requested Visits Authorized [id number] Authorized PCP Requested Referral 12/12/2023 12/11/2024 1 1 Specialty Diagnoses / Procedures Referred By Contac t Referred To Contact General Surgery Diagnoses Positive colorectal cancer screening using Cologuard test Procedures CONSULT TO GENERAL SURGERY OFFICE/OUTPATIENT [facility] 60 MINUTES Dave Abreu APRN.[facility] [address] [place] [address] Referral ID Status Reason Start Date Expiration Date Visits Requested Visits Authorized [id number] Authorized PCP Requested Referral 07/21/2024 07/21/2025 1 1 Summary Purpose Family History No Family History Records FoundNo Family History Records FoundNo Family History Records Found Advance Directives No Advanced Directives Records FoundNo Advanced Directives Records FoundNo Advanced Directives Records Found Additional Source Comments Source Comments (unrecognize d section and content) In the event this informatio n is protected by the Federal Confidentiality of Alcohol and Drug Abuse Patient Records regulations: The Federal rules restrict any use of the information to criminally investigate or prosecute any alcohol or drug abuse patient.[facility] the event this information is protected by the Federal Confidentiality of Alcohol and Drug Abuse Patient Records regulations: The Federal rules restrict any use of the information to criminally investigate or prosecute any alcohol or drug abuse patient.[facility]In the event this information is protected by the Federal Confidentiality of Alcohol and Drug Abuse Patient Records regulations: The Federal rules restrict any use of the information to criminally investigate or prosecute any alcohol or drug abuse patient.[facility] the event this information is protected by the Federal Confidentiality of Alcohol and Drug Abuse Patient Records regulations: The Federal rules restrict any use of the information to criminally investigate or prosecute any alcohol or drug abuse patient.[facility] HospitalIn the event this information is protected by the Federal Confidentiality of Alcohol and Drug Abuse Patient Records regulations: The Federal rules restrict any use of the information to criminally investigate or prosecute any alcohol or drug abuse patient.[facility] HospitalIn the event this information is protected by the Federal Confidentiality of Alcohol and Drug Abuse Patient Records regulations: The Federal rules restrict any use of the information to criminally investigate or prosecute any alcohol or drug abuse patient.[facility]In the event this information is protected by the Federal Confidentiality of Alcohol and Drug Abuse Patient Records regulations: The Federal rules restrict any use of the information to criminally investigate or prosecute any alcohol or drug abuse patient.[facility] HospitalIn the event this information is protected by the Federal Confidentiality of Alcohol and Drug Abuse Patient Records regulations: The Federal rules restrict any use of the information to criminally investigate or prosecute any alcohol or drug abuse patient.[facility] HospitalIn the event this information is protected by the Federal Confidentiality of Alcohol and Drug Abuse Patient Records regulations: The Federal rules restrict any use of the information to criminally investigate or prosecute any alcohol or drug abuse patient.[facility] HospitalIn the event this information is protected by the Federal Confidentiality of Alcohol and Drug Abuse Patient Records regulations: The Federal rules restrict any use of the information to criminally investigate or prosecute any alcohol or drug abuse patient.[facility] HospitalIn the event this information is protected by the Federal Confidentiality of Alcohol and Drug Abuse Patient Records regulations: The Federal rules restrict any use of the information to criminally investigate or prosecute any alcohol or drug abuse patient.[facility] HospitalIn the event this information is protected by the Federal Confidentiality of Alcohol and Drug Abuse Patient Records regulations: The Federal rules restrict any use of the information to criminally investigate or prosecute any alcohol or drug abuse patient.[facility] HospitalIn the event this information is protected by the Federal Confidentiality of Alcohol and Drug Abuse Patient Records regulations: The Federal rules restrict any use of the information to criminally investigate or prosecute any alcohol or drug abuse patient.[facility] the event this information is protected by the Federal Confidentiality of Alcohol and Drug Abuse Patient Records regulations: The Federal rules restrict any use of the information to criminally investigate or prosecute any alcohol or drug abuse patient.[facility] HospitalIn the event this information is protected by the Federal Confidentiality of Alcohol and Drug Abuse Patient Records regulations: The Federal rules restrict any use of the information to criminally investigate or prosecute any alcohol or drug abuse patient.[facility] HospitalIn the event this information is protected by the Federal Confidentiality of Alcohol and Drug Abuse Patient Records regulations: The Federal rules restrict any use of the information to criminally investigate or prosecute any alcohol or drug abuse patient.[facility] the event this information is protected by the Federal Confidentiality of Alcohol and Drug Abuse Patient Records regulations: The Federal rules restrict any use of the information to criminally investigate or prosecute any alcohol or drug abuse patient.[facility] HospitalIn the event this information is protected by the Federal Confidentiality of Alcohol and Drug Abuse Patient Records regulations: The Federal rules restrict any use of the information to criminally investigate or prosecute any alcohol or drug abuse patient.[facility] HospitalIn the event this information is protected by the Federal Confidentiality of Alcohol and Drug Abuse Patient Records regulations: The Federal rules restrict any use of the information to criminally investigate or prosecute any alcohol or drug abuse patient.[facility] HospitalIn the event this information is protected by the Federal Confidentiality of Alcohol and Drug Abuse Patient Records regulations: The Federal rules restrict any use of the information to criminally investigate or prosecute any alcohol or drug abuse patient.[facility] HospitalIn the event this information is protected by the Federal Confidentiality of Alcohol and Drug Abuse Patient Records regulations: The Federal rules restrict any use of the information to criminally investigate or prosecute any alcohol or drug abuse patient.[facility] HospitalIn the event this information is protected by the Federal Confidentiality of Alcohol and Drug Abuse Patient Records regulations: The Federal rules restrict any use of the information to criminally investigate or prosecute any alcohol or drug abuse patient.[facility] HospitalIn the event this information is protected by the Federal Confidentiality of Alcohol and Drug Abuse Patient Records regulations: The Federal rules restrict any use of the information to criminally investigate or prosecute any alcohol or drug abuse patient.[facility] HospitalIn the event this information is protected by the Federal Confidentiality of Alcohol and Drug Abuse Patient Records regulations: The Federal rules restrict any use of the information to criminally investigate or prosecute any alcohol or drug abuse patient.[facility] HospitalIn the event this information is protected by the Federal Confidentiality of Alcohol and Drug Abuse Patient Records regulations: The Federal rules restrict any use of the information to criminally investigate or prosecute any alcohol or drug abuse patient.[facility] HospitalIn the event this information is protected by the Federal Confidentiality of Alcohol and Drug Abuse Patient Records regulations: The Federal rules restrict any use of the information to criminally investigate or prosecute any alcohol or drug abuse patient.[facility] HospitalIn the event this information is protected by the Federal Confidentiality of Alcohol and Drug Abuse Patient Records regulations: The Federal rules restrict any use of the information to criminally investigate or prosecute any alcohol or drug abuse patient.[facility] HospitalIn the event this information is protected by the Federal Confidentiality of Alcohol and Drug Abuse Patient Records regulations: The Federal rules restrict any use of the information to criminally investigate or prosecute any alcohol or drug abuse patient.[facility] HospitalIn the event this information is protected by the Federal Confidentiality of Alcohol and Drug Abuse Patient Records regulations: The Federal rules restrict any use of the information to criminally investigate or prosecute any alcohol or drug abuse patient.[facility] HospitalIn the event this information is protected by the Federal Confidentiality of Alcohol and Drug Abuse Patient Records regulations: The Federal rules restrict any use of the information to criminally investigate or prosecute any alcohol or drug abuse patient.[facility] HospitalIn the event this information is protected by the Federal Confidentiality of Alcohol and Drug Abuse Patient Records regulations: The Federal rules restrict any use of the information to criminally investigate or prosecute any alcohol or drug abuse patient.[facility] HospitalIn the event this information is protected by the Federal Confidentiality of Alcohol and Drug Abuse Patient Records regulations: The Federal rules restrict any use of the information to criminally investigate or prosecute any alcohol or drug abuse patient.[facility] HospitalIn the event this information is protected by the Federal Confidentiality of Alcohol and Drug Abuse Patient Records regulations: The Federal rules restrict any use of the information to criminally investigate or prosecute any alcohol or drug abuse patient.[facility] HospitalIn the event this information is protected by the Federal Confidentiality of Alcohol and Drug Abuse Patient Records regulations: The Federal rules restrict any use of the information to criminally investigate or prosecute any alcohol or drug abuse patient.[facility] HospitalIn the event this information is protected by the Federal Confidentiality of Alcohol and Drug Abuse Patient Records regulations: The Federal rules restrict any use of the information to criminally investigate or prosecute any alcohol or drug abuse patient.[facility] HospitalIn the event this information is protected by the Federal Confidentiality of Alcohol and Drug Abuse Patient Records regulations: The Federal rules restrict any use of the information to criminally investigate or prosecute any alcohol or drug abuse patient.[facility] HospitalIn the event this information is protected by the Federal Confidentiality of Alcohol and Drug Abuse Patient Records regulations: The Federal rules restrict any use of the information to criminally investigate or prosecute any alcohol or drug abuse patient.[facility] HospitalIn the event this information is protected by the Federal Confidentiality of Alcohol and Drug Abuse Patient Records regulations: The Federal rules restrict any use of the information to criminally investigate or prosecute any alcohol or drug abuse patient.[facility] HospitalIn the event this information is protected by the Federal Confidentiality of Alcohol and Drug Abuse Patient Records regulations: The Federal rules restrict any use of the information to criminally investigate or prosecute any alcohol or drug abuse patient.[facility] HospitalIn the event this information is protected by the Federal Confidentiality of Alcohol and Drug Abuse Patient Records regulations: The Federal rules restrict any use of the information to criminally investigate or prosecute any alcohol or drug abuse patient.[facility] HospitalIn the event this information is protected by the Federal Confidentiality of Alcohol and Drug Abuse Patient Records regulations: The Federal rules restrict any use of the information to criminally investigate or prosecute any alcohol or drug abuse patient.[facility] HospitalIn the event this information is protected by the Federal Confidentiality of Alcohol and Drug Abuse Patient Records regulations: The Federal rules restrict any use of the information to criminally investigate or prosecute any alcohol or drug abuse patient.[facility] HospitalIn the event this information is protected by the Federal Confidentiality of Alcohol and Drug Abuse Patient Records regulations: The Federal rules restrict any use of the information to criminally investigate or prosecute any alcohol or drug abuse patient.[facility] HospitalIn the event this information is protected by the Federal Confidentiality of Alcohol and Drug Abuse Patient Records regulations: The Federal rules restrict any use of the information to criminally investigate or prosecute any alcohol or drug abuse patient.[facility] HospitalIn the event this information is protected by the Federal Confidentiality of Alcohol and Drug Abuse Patient Records regulations: The Federal rules restrict any use of the information to criminally investigate or prosecute any alcohol or drug abuse patient.[facility] HospitalIn the event this information is protected by the Federal Confidentiality of Alcohol and Drug Abuse Patient Records regulations: The Federal rules restrict any use of the information to criminally investigate or prosecute any alcohol or drug abuse patient.[facility] HospitalIn the event this information is protected by the Federal Confidentiality of Alcohol and Drug Abuse Patient Records regulations: The Federal rules restrict any use of the information to criminally investigate or prosecute any alcohol or drug abuse patient.[facility] Reason for Visit (unrecogniz ed section and content) Reason Comments Refill Request Reason Onset Date Comments Refill Request 08/27/2022 Reason Onset Date Comments Transition Of Care 08/31/2022 [facility] 08/30/22 Reason Comments Hospital F/U Reason Comments Patient Update Reason Onset Date Comments Refill Request 11/27/2022 Reason Onset Date Comments Refill Request 12/03/2022 Reason Comments Dizziness Starts getting bad ~ 1pm, lasts until ~ 6pm. Feels pressure in head. Sx X 3.5 mths. Reason Comments Results Reason Comments Follow Up 3 wk FU dizziness Reason Comments ER F/U [facility] ER Reason Comments ER F/U [facility] Reason Comments Consult Cardiology Reason Comments Outside Endo Reason Onset Date Comments Refill Request 03/04/2023 Reason Onset Date Comments Refill Request 05/28/2023 Reason Comments Yearly Exam Reason Comments ext documentation Cardio OV note Reason Comments Medication Request Patient Question Reason Comments Outside Cardiology Reason Comments 6 Month Exam Reason Comments Outside [id number] Ordered Reason Comments Ext Labs Reason Onset Date Comments Refill Request 03/10/2024 Reason Onset Date Comments Refill Request 03/17/2024 Reason Comments Ext / Labs Reason Comments Physical Therapy Reason Comments PT Discharge Summary Reason Comments Physical Reason Comments Follow Up Head Congestion Reason Comments Results Reason Comments Consult Colonoscopy consulta tion, positive Cologuard. 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 Relationship Specialty Start Date End Date Darinel Simon MD [address] [place] [address] PCP - General Family Practice 11/04/19 Ther[employer] Cutting Machine Operator Relationship Specialty Start Date End Date Darinel Simon MD [address] [place] [address] PCP - General Family Medicine 11/04/19 Thermal Cutting Machine Operator Relationship Specialty Start Date End Date Darinel Simon MD [address] [place] [address] PCP - General Family Medicine 11/04/19 Thermal Cutting Machine Operator Relationship Specialty Start Date End Date Darinel Simon MD [address] [place] [address], [place] [address] PCP - General Family Medicine 11/04/19 Thermal Cutting Machine Operator Relationship Specialty Start Date End Date Darinel Simon MD [address] [place] [address], [place] [address] PCP - General Family Medicine 11/04/19 Thermal Cutting Machine Operator Relationship Specialty Start Date End Date Darinel Simon MD [facility] [place] [place] [address] PCP - General Family Medicine 11/04/19 Thermal Cutting Machine Operator Relationship Specialty Start Date End Date Darinel Simon MD [facility] [place] [place] [address] PCP - General Family Medicine 11/04/19 Thermal Cutting Machine Operator Relationship Specialty Start Date End Date Darinel Simon MD [facility] [place] [place] [address] PCP - General Family Medicine 11/04/19 Thermal Cutting Machine Operator Relationship Specialty Start Date End Date Darinel Simon MD [facility] [place] [place] [address] PCP - General Family Medicine 11/04/19 Thermal Cutting Machine Operator Relationship Specialty Start Date End Date Darinel Simon MD [address] [place] [address], [place] [address] PCP - General Family Medicine 11/04/19 Thermal Cutting Machine Operator Relationship Specialty Start Date End Date Darinel Simon MD [address] [place] [address] PCP - General Family Medicine 11/04/19 Thermal Cutting Machine Operator Relationship Specialty Start Date End Date Darinel Simon MD [address] [place] [address] PCP - General Family Medicine 11/04/19 Thermal Cutting Machine Operator Relationship Specialty Start Date End Date Darinel Simon MD [address] [place] [address] PCP - General Family Medicine 11/04/19 Thermal Cutting Machine Operator Relationship Specialty Start Date End Date Darinel Simon MD [address] [place] [address] PCP - General Family Medicine 11/04/19 Thermal Cutting Machine Operator Relationship Specialty Start Date End Date Darinel Simon MD [address] [place] [address] PCP - General Family Medicine 11/04/19 Thermal Cutting Machine Operator Relationship Specialty Start Date End Date Darinel Simon MD [address] [place] [address] PCP - General Family Medicine 11/04/19 Thermal Cutting Machine Operator Relationship Specialty Start Date End Date Darinel Simon MD [address] [place] [address] PCP - General Family Medicine 11/04/19 Thermal Cutting Machine Operator Relationship Specialty Start Date End Date Darinel Simon MD [address] [place] [address] PCP - General Family Medicine 11/04/19 Thermal Cutting Machine Operator Relationship Specialty Start Date End Date Darinel Simon MD [address] [place] [address] PCP - General Family Medicine 11/04/19 Thermal Cutting Machine Operator Relationship Specialty Start Date End Date Darinel Simon MD [address] [place] [address] PCP - General Family Medicine 11/04/19 Thermal Cutting Machine Operator Relationship Specialty Start Date End Date Darinel Simon MD [address] [place] [address] PCP - General Family Medicine 11/04/19 Thermal Cutting Machine Operator Relationship Specialty Start Date End Date Darinel Simon MD [address] [place] [address] PCP - General Family Medicine 11/04/19 Thermal Cutting Machine Operator Relationship Specialty Start Date End Date Darinel Simon MD [address] [place] [address] PCP - General Family Medicine 11/04/19 Thermal Cutting Machine Operator Relationship Specialty Start Date End Date Darinel Simon MD [address] [place] [address] PCP - General Family Medicine 11/04/19 Thermal Cutting Machine Operator Relationship Specialty Start Date End Date Darinel Simon MD [address] [place] [address] PCP - General Family Medicine 11/04/19 Thermal Cutting Machine Operator Relationship Specialty Start Date End Date Darinel Simon MD [address] [place] [address] PCP - General Family Medicine 11/04/19 Thermal Cutting Machine Operator Relationship Specialty Start Date End Date Darinel Simon MD [address] [place] [address] PCP - General Family Medicine 11/04/19 Thermal Cutting Machine Operator Relationship Specialty Start Date End Date Darinel Simon MD [address] [place] [address] PCP - General Family Medicine 11/04/19 Thermal Cutting Machine Operator Relationship Specialty Start Date End Date Darinel Simon MD [address] [place] [address] PCP - General Family Medicine 11/04/19 Thermal Cutting Machine Operator Relationship Specialty Start Date End Date Darinel Simon MD [address] [place] [address] PCP - General Family Medicine 11/04/19 Thermal Cutting Machine Operator Relationship Specialty Start Date End Date Darinel Simon MD [address] [place] [address] PCP - General Family Medicine 11/04/19 Thermal Cutting Machine Operator Relationship Specialty Start Date End Date Darinel Simon MD [address] [place] [address] PCP - General Family Medicine 11/04/19 Thermal Cutting Machine Operator Relationship Specialty Start Date End Date Darinel Simon MD [address] [place] [address] PCP - General Family Medicine 11/04/19 Thermal Cutting Machine Operator Relationship Specialty Start Date End Date Darinel Simon MD [address] [place] [address] PCP - General Family Medicine 11/04/19 Thermal Cutting Machine Operator Relationship Specialty Start Date End Date Darinel Simon MD [address] [facility] [place] [address] PCP - General Family Medicine 11/04/19 Thermal Cutting Machine Operator Relationship Specialty Start Date End Date Darinel Simon MD [address] [facility] [address] PCP - General Family Medicine 11/04/19 Thermal Cutting Machine Operator Relationship Specialty Start Date End Date Darinel Simon MD [address] [place], [place] [id number] PCP - General Family Medicine 11/04/19 (unrecognized sect ion and content) No Status Records FoundNo Status Records FoundNo Status Records Found INFORMATION SOURCE (unrecogn ized section and content) DATE CREATED AUTHOR 03/21/2024 [facility] DATE CREATED AUTHOR AUTHOR'S ORGANIZ ATION 07/23/2024 [facility] DATE CREATED AUTHOR AUTHOR'S ORGANIZ ATION 08/05/2024 [facility] FOR RECORDS PERTAINING TO PATIENTS WHO ARE [...] BE BASED ON THE PRIMARY CLINICAL RECORDS. [employer] provides no warranty or guarantee of the accuracy or completeness of information in this document.
== END | disposition home or self-care (01) ==
LOC: LAB 12:27
PROVIDERS: PCP Family Medicine; Referring Provider Internal Medicine Endocrinology, Diabetes & Metabolism; Visit Provider Internal Medicine Endocrinology, Diabetes & Metabolism
DX: E11.65 Type 2 diabetes mellitus with hyperglycemia (principal); Z79.4 Long term (current) use of insulin
CPT/HCPCS: 82043; 82570

== ENCOUNTER 2024-09-01 11:59 | Emergency (ER) | payer MEDICAID, SELFPAY ==
[2023-01-26 01:17] VITALS: BMI 38.2
[2024-09-01 11:59] VITALS: BP 159/87; PULSE 68; RESP 19; TEMP 36.4; O2SAT 100; BMI 36.8
--- NOTE | 2024-09-01 13:02 | EDS_ITS ---
HPI History of Present Illness Chief Complaint: Hypertension Detail of Chief Complaint: Acute on chronic hypertension. Informant: spouse/S.O. Onset/Context/Timing Onset: Days Context: Gradual Onset Timing: Intermittent Current Severity: Mild Maximum Severity: Mild Narrative Narrative: 49-year-old male history of hypertension, CAD, SD with a stent and diabetes. On lisinopril 5 mg a day. Said reason his blood pressures been running high as high as 200 systolic at home. He denies any significant headaches. No trouble moving his arms or legs. No chest pain or shortness of breath. Prior similar symptoms: Yes Recent Illness/Hospitalization: No [facility] Medical History Bradycardia Hypothyroidism Obesity Diabetes History of non-ST elevation myocardial infarction (NSTEMI) (08/28/22) Atherosclerosis of coronary artery without angina pectoris Essential hypertension Substance abuse Anxiety Depression Obesity Kidney stones Cataract Diabetes mellitus type II, uncontrolled Gastroesophageal reflux History of anxiety Hyperlipidemia Home Medications ?Medication ?Instructions ?Recorded ?Last Taken ?Type levothyroxine 25 mcg tablet 25 tablet PO DAILY THYROID 07/20/21 04/01/24 History OneTouch Verio Flex meter #1 ea 09/04/21 Unknown Rx (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 meter) OneTouch Verio test strips (blood #450 ea 09/04/21 Unknown Rx sugar diagnostic) FreeStyle Lite Strips (blood sugar #100 ea 09/06/21 Unknown Rx diagnostic) aspirin 81 mg chewable tablet 81 mg PO BREAKFAST HEART HEALTH 08/28/22 04/01/24 History atorvastatin 40 mg tablet 40 mg PO DAILY CHOLESTEROL 08/28/22 04/01/24 History omeprazole 20 mg capsule,delayed 20 mg PO DAILY GERD 08/28/22 04/01/24 History release nitroglycerin 0.4 mg sublingual 0.4 mg sublingual Q5M PRN CHEST 01/01/23 Unknown History tablet PAIN flash glucose scanning reader #1 ea 05/08/23 Unknown Rx (FreeStyle Ximena 2 [place]) duloxetine 30 mg capsule,delayed 30 mg PO DAILY depression 07/05/23 04/01/24 History release pen needle, diabetic 31 gauge x #120 ea 07/09/23 Unknown Rx 1/4 isosorbide mononitrate 60 mg 60 mg PO DAILY heart #90 tabs 11/01/23 04/01/24 Rx tablet,extended release 24 hr flash glucose sensor (FreeStyle #6 ea 11/21/23 Unknown Rx Ximena 2 Sensor kit) clopidogrel 75 mg tablet (Plavix) 75 mg PO DAILY BLOOD THINNER #90 12/23/23 04/01/24 Rx tabs 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 meter,continuous #1 ea 06/08/24 Unknown Rx (FreeStyle Ximena 3 [place]) 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 sensor (FreeStyle #2 ea 06/08/24 Unknown Rx Ximena 3 Sensor device) insulin aspart U-100 100 unit/mL 12 unit (0.12 mL) subcut TIDCM 07/01/24 Unknown Rx (3 mL) subcutaneous pen (Novolog DIABETES #32.4 mL FlexPen U-100 Insulin aspart) insulin glargine 100 unit/mL (3 26 unit (0.26 mL) subcut QAM 07/01/24 Unknown Rx mL) subcutaneous pen (Lantus insulin #23.4 mL Solostar U-100 Insulin) lisinopril 5 mg tablet 5 mg PO DAILY BLOOD PRESSURE #90 07/03/24 Unknown Rx tabs dulaglutide 0.75 mg/0.5 mL 0.75 mg (0.5 mL) subcut QWEEK 4 08/26/24 Unknown Rx subcutaneous pen injector weeks #2 mL (Trulicity) Allergy/AdvReac Type Severity Reaction Status Date / Time No Known Allergies Allergy Verified 09/01/24 12:01 Family History Father Myocardial infarction Surgical History History of right coronary artery stent placement (08/28/22) History of coronary artery stent placement (~08/29/22) History of coronary artery stent placement (08/28/22) Social History household members: family housing: house Smoking Status: Never smoker alcohol intake: never substance use type: marijuana caffeine: Yes Type: carbonated beverages Number of servings: 8 and coffee Number of servings: 1 what type of physical activity do you participate in: none ROS ROS ED ROS Narrative Denies recent illness. Denies headaches. Constitutional Constitutional ED: Denies chills or fever(s) Eyes Eyes: Denies blurry vision ENT ENT ED: Denies ear pain Cardiovascular Cardiovascular: Denies chest pain Respiratory/Chest Respiratory/Chest: Denies cough Gastrointestinal Gastrointestinal: Denies abdominal pain Genitourinary Genitourinary ED: Denies dysuria Musculoskeletal Musculoskeletal: Denies arthralgias Integumentary Denies abscess Neurologic Neurologic: Denies headache(s) Psychiatric Psychiatric: Denies anxiety Endocrine Endocrinology: Denies cold intolerance Hematologic/Lymphatic Hematologic/Lymphatic: Reports none Allergic/Immunologic Allergic/Immunologic ED: Denies mouth swelling, tongue swelling or urticaria EXAM Physical Exam Narrative Exam Narrative: Well-appearing 49-year-old gentleman. Vital signs are stable afebrile. Initial blood pressure 139/87. He does not look septic toxic or in any distress. H EENT exam normal. Pupils round reactive light. No facial droop. Normal spe ech. Neck nontender. No lymphadenopathy. Lungs clear to auscultation bilaterally. Heart regular in rhythm rate about 65 no murmur. Chest wall ribs nontender. Abdomen soft nontender. Moving all 4 extremities. 5 out of 5 communication equipment mechanic strength. Dorsi plantarflexion intact. Calves are nontender without edema or cords. Neurologically is awake and alert. No focal motor deficits. NIH is 0. No facial droop. Normal speech. Able to open close his eyes. Extra motions are intact. 5 out of 5 communication equipment mechanic strength bilaterally. Dorsi plantarflexion intact. Fingertip to nose and [id number] within normal limits. Patient stood up out of bed walk to the door and back had no trouble walking. No ataxia. No balance issues. NIH is 0. Const Vital Signs: 09/01/24 11:59 Temperature 97.6 F L Temperature Source Temporal Pulse Rate 68 Respiratory Rate 19 H Blood Pressure 159/87 H Blood Pressure Mean 111 Pulse Ox 100 Oxygen Delivery Method Room Air Positive well nourished and well developed; Negative for cachectic, contractures or unkempt General Appearance ED: well developed and NAD; Negative for unkempt, cachectic, contractures, cyanotic, diaphoretic or pallor Nutritional Appearance: Negative for cachectic HEENT Reports moist mucous membranes Negative for trauma or tenderness Eyes PERRL and EOMs intact bilaterally General Eye ED: Negative for pale conjunctiva, scleral icterus or other Neck no lymphadenopathy, supple and no JVD General: Negative for tenderness or other Chest Wall inspection of chest normal and palpation of chest normal Chest: Negative for other Resp normal respiratory effort and clear to auscultation bilaterally Auscultation: Negative for rales, rhonchi or wheezes Cardio regular rate, regular rhythm, S1 normal heart sound, S2 normal heart sound and no murmurs GI normal to inspection, nondistended, normoactive bowel sounds, non-tender, non- distended and no masses Palpation: soft; Negative for tender or rebound tenderness present Back/Spine no CVA tenderness General Back: Negative for CVA tenderness or other Cervical Spine: Negative for cervical spine tenderness Thoracic Spine / Upper Back: Negative for thoracic spinal tenderness or paraspinal muscle tenderness Lumbar Spine / Lower Back: Negative for lumbar spinal tenderness Extremity normal to inspection General Extremety ED: Negative for edema or tenderness General Extremity: Negative for edema Neuro oriented x3 and CN's II-XII intact bilaterally Sensorium / Orientation: alert; Negative for orientation impaired, lethargic or stuporous Motor Exam: strength 5/5 throughout Psych mental status grossly normal Appearance: Negative for unkempt Attitude: No agitated Mood & Affect: Negative for depressed, anxious or tearful Skin no rashes or lesions noted, no wounds and skin turgor normal General Skin Exam: Negative for elasticity normal, jaundice or pallor Lesions: No lesion noted Rashes: No rashes noted Trauma: Negative for abrasion Wounds: Negative for wounds noted MDM MDM MDM Narrative Medical decision making narrative: 49-year-old male acute on chronic hypertension. He is already on medication. I would increase his lisinopril from 5 mg once a day to 10. Held log his blood pressures twice daily and follow-up with either his primary care physician or his executive business coach next week to have his blood pressure reevaluate and see if they need to adjust or change any of his medications. He and his are comfortable with the plan. His exam is normal. His neurologic exam is normal. I do not think he needs any labs or imaging any at recent labs are unremarkable with normal kidney function. They are comfortable with the plan. Discharge Plan Triage Chief Complaint: Hypertension ED Provider: Ernie Chau Dx/Rx/DC Orders Clinical Impression: Essential hypertension Instructions: ED High Blood Pressure Hypertension Prescriptions: No Action levothyroxine 25 mcg tablet 25 tablet PO DAILY (DME) 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 meter [OneTouch Verio Flex meter] Misc See Rx Instructions .ROUTE .MEDSUPPLY Qty: 1 0RF Rx Instructions: As directed (DME) OneTouch Verio test strips Strip See Rx Instructions .ROUTE .MEDSUPPLY Qty: 450 3RF Rx Instructions: 5x/day (DME) FreeStyle Lite Strips Strip See Rx Instructions .ROUTE .MEDSUPPLY Qty: 100 6RF Rx Instructions: 4x/day (DME) FreeStyle Ximena 2 [place] Misc See Rx Instructions .Route Qty: 1 0RF Rx Instructions: As directed duloxetine 30 mg capsule,delayed release(DR/EC) 30 mg PO DAILY (DME) FreeStyle Ximena 3 [place] Misc See Rx Instructions .Route Qty: 1 0RF Rx Instructions: As directed (DME) FreeStyle Ximena 3 Sensor Device See Rx Instructions .Route Qty: 2 5RF Rx Instructions: 1 sensor q 14 days atorvastatin 40 mg tablet 40 mg PO DAILY omeprazole 20 mg capsule,delayed release(DR/EC) 20 mg PO DAILY aspirin 81 mg tablet,chewable 81 mg PO BREAKFAST nitroglycerin 0.4 mg tablet, sublingual 0.4 mg sublingual Q5M PRN (Reason: CHEST PAIN ) (DME) pen needle, diabetic 31 gauge x 1/4 needle See Rx Instructions .ROUTE .MEDSUPPLY Qty: 120 6RF Rx Instructions: 4x/day isosorbide mononitrate 60 mg tablet extended release 24 hr 60 mg PO DAILY Qty: 90 3RF (DME) FreeStyle Ximena 2 Sensor Kit See Rx Instructions .Route Qty: 6 1RF Rx Instructions: 1 sensor q 14 days clopidogrel [Plavix] 75 mg tablet 75 mg PO DAILY Qty: 90 3RF insulin aspart U-100 [Novolog FlexPen U-100 Insulin] 100 unit/mL (3 mL) insulin pen 12 unit SUBCUT TIDCM Qty: 32.4 1RF insulin glargine [Lantus Solostar U-100 Insulin] 100 unit/mL (3 mL) insulin pen 26 unit subcut QAM Qty: 23.4 1RF lisinopril 5 mg tablet 5 mg PO DAILY Qty: 90 3RF Trulicity 0.75 mg/0.5 mL pen injector 0.75 mg subcut QWEEK 28 Days Qty: 2 1RF Primary Care Provider: Darinel Armstrong Referrals: Darinel Armstrong MD [Primary Care Provider] - As soon as possible Activity Restrictions/Additional Instructions: Take your blood pressure in the morning after breakfast and in the evening after dinner. Logging on a piece of paper taken twice a day for the next week. Call your primary care physician or your executive business coach follow-up with them next week to have your blood pressure reevaluated and that physician and you can discuss if they need to alter your blood pressure medications. Increase your lisinopril from 5 to 10 mg a day once a day. You can take an extra 5 mg today when you go home. Starting tomorrow take 10 mg a day at 1 time. Print Language: Irish Disposition Disposition: Home, Self Care
[2024-09-01 13:21] VITALS: BP 125/86; PULSE 60; RESP 16; TEMP 35.6; O2SAT 95
== END 2024-09-01 13:22 | disposition home or self-care (01) ==
LOC: ED 13:10
PROVIDERS: Emergency Provider Emergency Medicine; PCP Family Medicine; Visit Provider Emergency Medicine
DX: I10 Essential (primary) hypertension (principal); E11.9 Type 2 diabetes mellitus without complications; Z79.4 Long term (current) use of insulin; I25.10 Atherosclerotic heart disease of native coronary artery without angina pectoris; E78.5 Hyperlipidemia, unspecified; I25.2 Old myocardial infarction; Z79.82 Long term (current) use of aspirin; Z79.02 Long term (current) use of antithrombotics/antiplatelets; Z79.84 Long term (current) use of oral hypoglycemic drugs; Z79.85 Long-term (current) use of injectable non-insulin antidiabetic drugs; Z79.890 Hormone replacement therapy; Z79.899 Other long term (current) drug therapy; Z95.5 Presence of coronary angioplasty implant and graft
CPT/HCPCS: 99282

== ENCOUNTER 2024-10-16 16:16 | Emergency (ER) | payer MEDICAID, SELFPAY ==
[2023-01-26 01:17] VITALS: BMI 38.2
[2024-10-16 16:16] VITALS: BP 140/84; PULSE 73; RESP 18; TEMP 36.5; O2SAT 97; BMI 36.5
[2024-10-16] MEDS: HYDROcodone Bitartrate/Apap 5/325 Tablet PO (17:05)
--- NOTE | 2024-10-16 17:48 | RAD_ITS ---
EXAM: XR LUMBOSACRAL SPINE, 2 OR 3 VIEWS CLINICAL INDICATION: pain TECHNIQUE: Frontal and lateral views of the lumbar spine and sacrum. COMPARISON: No relevant prior studies available. FINDINGS: VERTEBRAE: Minimal endplate sclerosis of the opposing endplates at L4-5 and L5-S1. Disc height is well-maintained. Preserved vertebral body height. No fracture. No spondylolisthesis. Preservation of the normal lumbar lordosis. No significant facet arthropathy. DISC SPACES: No acute findings. Disc spaces are maintained. GASTROINTESTINAL TRACT: Mild stool in the distal transverse to mid descending colon. No dilated small bowel. RAD/Lumbar Spine 2 or 3 Views IMPRESSION: No acute findings in the lumbar spine. Suspicion of mild anterior decreased body height at T12, it is not fully included. Likely chronic. Electronically Signed: Lisy Sanches MD at 18:21 EST ,
--- NOTE | 2024-10-16 18:06 | EDS_ITS ---
HPI <PREETI Gomez - Last Filed: 10/16/24 20:55> History of Present Illness Chief Complaint: Back Narrative Narrative: Patient presenting today with low back pain he has had over the past few days. He reports that the pain started about a day after he and his tried to lift a snow mobile out of the back of a truck by themselves. He reports that the pain does radiate to the anterior aspect of his bilateral thighs. He has been taking Tylenol and gabapentin which he uses for his diabetic neuropathy with minimal relief of his pain. He denies fevers, chills, bowel/bladder incontinence, saddle paresthesia, urinary retention, and urinary symptoms. COUNTS INCLUDE 234 BEDS AT THE [facility] <PREETI Gomez - Last Filed: 10/16/24 20:55> COUNTS INCLUDE 234 BEDS AT THE [facility] Medical History Bradycardia Hypothyroidism Obesity Diabetes History of non-ST elevation myocardial infarction (NSTEMI) (08/28/22) Atherosclerosis of coronary artery without angina pectoris Essential hypertension Substance abuse Anxiety Depression Obesity Kidney stones Cataract Diabetes mellitus type II, uncontrolled Gastroesophageal reflux History of anxiety Hyperlipidemia Home Medications ?Medication ?Instructions ?Recorded ?Last Taken ?Type levothyroxine 25 mcg tablet 25 tablet PO DAILY THYROID 07/20/21 04/01/24 History OneTouch Verio Flex meter #1 ea 09/04/21 Unknown Rx (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 meter) OneTouch Verio test strips (blood #450 ea 09/04/21 Unknown Rx sugar diagnostic) FreeStyle Lite Strips (blood sugar #100 ea 09/06/21 Unknown Rx diagnostic) aspirin 81 mg chewable tablet 81 mg PO BREAKFAST HEART HEALTH 08/28/22 04/01/24 History atorvastatin 40 mg tablet 40 mg PO DAILY CHOLESTEROL 08/28/22 04/01/24 History omeprazole 20 mg capsule,delayed 20 mg PO DAILY GERD 08/28/22 04/01/24 History release nitroglycerin 0.4 mg sublingual 0.4 mg sublingual Q5M PRN CHEST 01/01/23 Unknown History tablet PAIN flash glucose scanning reader #1 ea 05/08/23 Unknown Rx (FreeStyle Ximena 2 [place]) duloxetine 30 mg capsule,delayed 30 mg PO DAILY depression 07/05/23 04/01/24 History release pen needle, diabetic 31 gauge x #120 ea 07/09/23 Unknown Rx 1/4 isosorbide mononitrate 60 mg 60 mg PO DAILY heart #90 tabs 11/01/23 04/01/24 Rx tablet,extended release 24 hr flash glucose sensor (FreeStyle #6 ea 11/21/23 Unknown Rx Ximena 2 Sensor kit) clopidogrel 75 mg tablet (Plavix) 75 mg PO DAILY BLOOD THINNER #90 12/23/23 04/01/24 Rx tabs 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 meter,continuous #1 ea 06/08/24 Unknown Rx (FreeStyle Ximena 3 [place]) 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 sensor (FreeStyle #2 ea 06/08/24 Unknown Rx Ximena 3 Sensor device) insulin aspart U-100 100 unit/mL 12 unit (0.12 mL) subcut TIDCM 07/01/24 Unknown Rx (3 mL) subcutaneous pen (Novolog DIABETES #32.4 mL FlexPen U-100 Insulin aspart) insulin glargine 100 unit/mL (3 26 unit (0.26 mL) subcut QAM 07/01/24 Unknown Rx mL) subcutaneous pen (Lantus insulin #23.4 mL Solostar U-100 Insulin) dulaglutide 0.75 mg/0.5 mL 0.75 mg (0.5 mL) subcut QWEEK 4 08/26/24 Unknown Rx subcutaneous pen injector weeks #2 mL (Trulicity) lisinopril 20 mg tablet 20 mg PO QDAY #90 tabs 09/10/24 Unknown Rx hydrocodone-acetaminophen 5-325mg 1 tab PO Q4H PRN PRN Pain 3 days 10/16/24 Unknown Rx 5mg-325mg #10 TABLETS Allergy/AdvReac Type Severity Reaction Status Date / Time No Known Allergies Allergy Verified 10/16/24 16:16 Family History Father Myocardial infarction Surgical History History of right coronary artery stent placement (08/28/22) History of coronary artery stent placement (~08/29/22) History of coronary artery stent placement (08/28/22) Social History household members: family housing: house Smoking Status: Unknown if ever smoked alcohol intake: never substance use type: marijuana caffeine: Yes Type: carbonated beverages Number of servings: 8 and coffee Number of servings: 1 what type of physical activity do you participate in: none ROS <PREETI Gomez - Last Filed: 10/16/24 20:55> ROS ED Constitutional Constitutional ED: Denies chills or fever(s) Cardiovascular Cardiovascular: Denies chest pain Respiratory/Chest Respiratory/Chest: Denies cough or dyspnea Gastrointestinal Gastrointestinal: Denies abdominal pain, nausea or vomiting Musculoskeletal Musculoskeletal: Reports back pain Integumentary Denies rash Neurologic Neurologic: Denies paresthesias or weakness EXAM <PREETI Gomez - Last Filed: 10/16/24 20:55> Physical Exam Const Vital Signs: 10/16/24 16:16 10/16/24 18:44 Temperature 97.7 F L 97.8 F Temperature Source Oral Pulse Rate 73 64 Respiratory Rate 18 18 Blood Pressure 140/84 H 141/76 H Blood Pressure Mean 102 97 Pulse Ox 97 99 Oxygen Delivery Method Room Air Positive well nourished, well developed and no apparent distress General Appearance ED: well developed HEENT Reports normocephalic and head/scalp atraumatic Mouth ED: Yes moist mucous membranes normal Eyes PERRL and EOMs intact bilaterally Neck full ROM and supple Chest Wall inspection of chest normal Resp normal respiratory effort and clear to auscultation bilaterally Cardio regular rate and regular rhythm Back/Spine normal ROM and normal to inspection Back/Spine Narrative: No midline tenderness to the thoracic or lumbar spine, minimal right lumbar paraspinal tenderness to palpation. Lumbar Spine / Lower Back: straight leg raise negative bilaterally Extremity normal to inspection and full ROM Neuro oriented x3, CN's II-XII intact bilaterally, moves all extremities, no focal motor deficits and no sensory deficits noted Neuro Narrative: 5/5 sensation upper and lower lower extremities. Sensorium / Orientation: awake and alert Motor Exam: strength 5/5 throughout Deep Tendon Reflexes: Rt Patellar (L4): 2+ and Lt Patellar (L4): 2+ Deep Tendon Reflexes Back: Rt Patellar (L4): 2+ and Lt Patellar (L4): 2+ Psych mental status grossly normal and thought process normal Skin no rashes or lesions noted and no wounds <Dr. Morgan Patterson DO - Last Filed: 10/16/24 20:24> Physical Exam Const Vital Signs: 10/16/24 16:16 10/16/24 18:44 Temperature 97.7 F L 97.8 F Temperature Source Oral Pulse Rate 73 64 Respiratory Rate 18 18 Blood Pressure 140/84 H 141/76 H Blood Pressure Mean 102 97 Pulse Ox 97 99 Oxygen Delivery Method Room Air [facility] <RPEETI Gomez - Last Filed: 10/16/24 20:55> [facility] Narrative Medical decision making narrative: Patient presenting today with low back pain he has had over the past few days that started about a day after he tried to lift a snowmobile out of the back of a truck with his . He does not have any midline tenderness to his spine. No direct injury to his back. He does not have any symptoms of cauda equina syndrome, low suspicion for spinal abscess. He has 5/5 strength and sensation bilateral upper and lower extremities. Negative straight leg test bilaterally. Suspect musculoskeletal strain. X-ray of the low back was obtained which shows no acute findings. Likely chronic decreased body had a T12. He does report some improvement of his pain with [place]. I will give him a short course of this for home. I recommended he follow-up with his PCP and he will be discharged home in stable condition. Radiography Diagnostic Testing: Clinical Impression(s) from Imaging Studies Lumbar Spine X-Ray 10/16/24 17:48 IMPRESSION: No acute findings in the lumbar spine. Suspicion of mild anterior decreased body height at T12, it is not fully included. Likely chronic. Electronically Signed: Lisy Sanches MD at 18:21 EST , <Dr. Morgan Patterson DO - Last Filed: 10/16/24 20:24> [facility] History & Record Review Discussion w/independent historian: Patient and Significant other Radiography Diagnostic Testing: Clinical Impression(s) from Imaging Studies Lumbar Spine X-Ray 10/16/24 17:48 IMPRESSION: No acute findings in the lumbar spine. Suspicion of mild anterior decreased body height at T12, it is not fully included. Likely chronic. Electronically Signed: Lisy Sanches MD at 18:21 EST , Treatment and Re-Evaluation Narrative: I have personally performed a face to face assessment of the patient and have reviewed the BASIL Note. I performed a substantive portion of the visit including all aspects of the following. My ríos findings include: History is 49-year-old male presenting to the emergency room with low back buttock and anterior thigh pain. This is on both sides. Saturday he attempted to move a snowmobile. He notes that by Saturday he was having the discomfort. This is atypical for him as he does not typically get back pain. He denies any known direct trauma. No difficulty with bowel or bladder function Exam is no significant tenderness to palpation across the low back. Mild tenderness to palpation in the buttock region over the piriformis area. He has strong hip flexion. No loss of sensation. Medical Decison Making my independent interpretation the plain films of the lumbar spine is no acute findings. Clinically I suspect this may be more of a muscular strain. Possible hip flexor/psoas. I will write for some pain medication. If he is not improving would recommend follow-up if he develops muscular weakness sensory changes or symptoms of cauda equina he needs return to emergency. Patient is comfortable with this plan Discharge Plan Triage Chief Complaint: Back ED Midlevel Provider: Cinthya Block ED Provider: Morgan Patterson Dx/Rx/DC Orders Clinical Impression: Low back strain Instructions: Back Safety: Lifting, ED Back Sprain/Strain Prescriptions: New hydrocodone-acetaminophen 5-325 mg tablet 1 tab PO Q4H PRN PRN (Reason: Pain) 3 Days Qty: 10 0RF No Action levothyroxine 25 mcg tablet 25 tablet PO DAILY (DME) 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 meter [OneTouch Verio Flex meter] Misc See Rx Instructions .ROUTE .MEDSUPPLY Qty: 1 0RF Rx Instructions: As directed (DME) OneTouch Verio test strips Strip See Rx Instructions .ROUTE .MEDSUPPLY Qty: 450 3RF Rx Instructions: 5x/day (DME) FreeStyle Lite Strips Strip See Rx Instructions .ROUTE .MEDSUPPLY Qty: 100 6RF Rx Instructions: 4x/day (DME) FreeStyle Ximena 2 [place] Misc See Rx Instructions .Route Qty: 1 0RF Rx Instructions: As directed duloxetine 30 mg capsule,delayed release(DR/EC) 30 mg PO DAILY (DME) FreeStyle Ximena 3 [place] Misc See Rx Instructions .Route Qty: 1 0RF Rx Instructions: As directed (DME) FreeStyle Ximena 3 Sensor Device See Rx Instructions .Route Qty: 2 5RF Rx Instructions: 1 sensor q 14 days atorvastatin 40 mg tablet 40 mg PO DAILY omeprazole 20 mg capsule,delayed release(DR/EC) 20 mg PO DAILY aspirin 81 mg tablet,chewable 81 mg PO BREAKFAST nitroglycerin 0.4 mg tablet, sublingual 0.4 mg sublingual Q5M PRN (Reason: CHEST PAIN ) (DME) pen needle, diabetic 31 gauge x 1/4 needle See Rx Instructions .ROUTE .MEDSUPPLY Qty: 120 6RF Rx Instructions: 4x/day isosorbide mononitrate 60 mg tablet extended release 24 hr 60 mg PO DAILY Qty: 90 3RF (DME) FreeStyle Ximena 2 Sensor Kit See Rx Instructions .Route Qty: 6 1RF Rx Instructions: 1 sensor q 14 days clopidogrel [Plavix] 75 mg tablet 75 mg PO DAILY Qty: 90 3RF insulin aspart U-100 [Novolog FlexPen U-100 Insulin] 100 unit/mL (3 mL) insulin pen 12 unit SUBCUT TIDCM Qty: 32.4 1RF insulin glargine [Lantus Solostar U-100 Insulin] 100 unit/mL (3 mL) insulin pen 26 unit subcut QAM Qty: 23.4 1RF Trulicity 0.75 mg/0.5 mL pen injector 0.75 mg subcut QWEEK 28 Days Qty: 2 1RF lisinopril 20 mg tablet 20 mg PO QDAY Qty: 90 3RF Primary Care Provider: Darinel Armstrong Referrals: Darinel Armstrong MD [Primary Care Provider] - 5-7 Days Activity Restrictions/Additional Instructions: Follow-up with your PCP and return for any worsening symptoms. Print Language: [place] Disposition Disposition: Home, Self Care Discharge Date/Time: 10/16/24 18:44
[2024-10-16 18:44] VITALS: BP 141/76; PULSE 64; RESP 18; TEMP 36.6; O2SAT 99
== END 2024-10-16 18:44 | disposition home or self-care (01) ==
PROVIDERS: Emergency Provider Emergency Medicine; PCP Family Medicine; Visit Provider Emergency Medicine
DX: S39.012A Strain of muscle, fascia and tendon of lower back, initial encounter (principal); E11.40 Type 2 diabetes mellitus with diabetic neuropathy, unspecified; E78.5 Hyperlipidemia, unspecified; I10 Essential (primary) hypertension; I25.10 Atherosclerotic heart disease of native coronary artery without angina pectoris; X50.0XXA Overexertion from strenuous movement or load, initial encounter
CPT/HCPCS: 72100; 99282

== ENCOUNTER 2024-12-14 12:22 | Emergency (ER) | payer MEDICAID, SELFPAY ==
[2023-01-26 01:17] VITALS: BMI 38.2
[2024-12-14] VITALS (8 sets, daily range): BP systolic 110–156; BP diastolic 78–98; PULSE 70–95; RESP 16–23; TEMP 36.6; O2SAT 94–98; BMI 37.8
--- NOTE | 2024-12-14 12:44 | RAD_ITS ---
PROCEDURE: CHEST PA AND LATERAL REASON FOR EXAM: Chest pain TECHNIQUE: Two views of the chest COMPARISON: 04/01/2024 FINDINGS: Borderline cardiomegaly. No focal consolidation, pleural effusion or sizable pneumothorax. RAD/Chest PA and Lateral IMPRESSION: No acute airspace abnormality. Reading [facility]
[2024-12-14 12:46] LABS: Absolute Neutrophil Count 6.8 X10^3/uL (2.0-7.7); Basophil# 0.08 X10^3/uL; Basophil% 0.7 % (0-1); Eosinophil# 0.73 X10^3/uL; Eosinophils% 6.3 % (0-5); Hematocrit 49.9 % (40-54); Hemoglobin 16.6 g/dL (13.0-16.5); Mean Corp Hgb Conc 33.3 g/dL (32-36); Mean Corpuscular Hgb 30.7 pg (27.0-32.0); Mean Corpuscular Volume 92.4 fL (80-94); Mean Platelet Vol. 10.9 fl (6.2-12.0); Monocyte# 0.93 X10^3/uL; Monocyte% 8.1 % (0-10); NRBC Flagged by Analyzer 0 % (0-5); Neutrophil # 6.76 X10^3/uL (2.7-7.7); Neutrophil % 58.5 % (47-70); Platelet Count 272 K/mm3 (150-450); RBC Distribution Width CV 13.1 % (11.6-14.6); RBC Distribution Width SD 44.4 fl (35.1-43.9); White Blood Count 11.6 K/mm3 (4.4-11.0)
--- NOTE | 2024-12-14 12:47 | ED.VIS.CHEST ---
HPI <PREETI Gomez - Last Filed: 12/14/24 18:37> History of Present Illness Chief Complaint: Chest Pain Narrative Narrative: Patient presenting today due to concerns for midsternal chest tightness that he has had over the past 2-3 days continuously. Additionally, he reports nasal congestion and postnasal drip with intermittent nausea and fatigue over the past few days. About 3 days ago he had diarrhea that resolved. He has had a productive cough over the past few weeks. He does have a history of CAD with stent placement. He had a heart catheterization in December [address] [place] [place] multivessel CAD and had stents placed. His echo at that time showed an EF of 65%. He then had a stress test in March 2024 that was negative for ischemia. He follows with Dr. Harrison with cardiology. PE Risk Factors: Negative for Recent Travel/Surgery, Recent Immobilization, Prior DVT or PE or Cancer [facility] <PREETI Gomez - Last Filed: 12/14/24 18:37> [facility] Medical History Bradycardia Hypothyroidism Obesity Diabetes History of non-ST elevation myocardial infarction (NSTEMI) (08/28/22) Atherosclerosis of coronary artery without angina pectoris Essential hypertension Substance abuse Anxiety Depression Obesity Kidney stones Cataract Diabetes mellitus type II, uncontrolled Gastroesophageal reflux History of anxiety Hyperlipidemia Home Medications ?Medication ?Instructions ?Recorded ?Last Taken ?Type OneTouch Verio Flex meter #1 ea 09/04/21 Unknown Rx (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 meter) OneTouch Verio test strips (blood #450 ea 09/04/21 Unknown Rx sugar diagnostic) FreeStyle Lite Strips (blood sugar #100 ea 09/06/21 Unknown Rx diagnostic) aspirin 81 mg chewable tablet 81 mg PO BREAKFAST HEART HEALTH 08/28/22 04/01/24 History atorvastatin 40 mg tablet 40 mg PO DAILY CHOLESTEROL 08/28/22 04/01/24 History omeprazole 20 mg capsule,delayed 20 mg PO DAILY GERD 08/28/22 04/01/24 History release nitroglycerin 0.4 mg sublingual 0.4 mg sublingual Q5M PRN CHEST 01/01/23 Unknown History tablet PAIN flash glucose scanning reader #1 ea 05/08/23 Unknown Rx (FreeStyle Ximena 2 [place]) duloxetine 30 mg capsule,delayed 30 mg PO DAILY depression 07/05/23 04/01/24 History release pen needle, diabetic 31 gauge x #120 ea 07/09/23 Unknown Rx 1/4 flash glucose sensor (FreeStyle #6 ea 11/21/23 Unknown Rx Ximena 2 Sensor kit) clopidogrel 75 mg tablet (Plavix) 75 mg PO DAILY BLOOD THINNER #90 12/23/23 04/01/24 Rx tabs 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 meter,continuous #1 ea 06/08/24 Unknown Rx (FreeStyle Ximena 3 [place]) 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 sensor (FreeStyle #2 ea 06/08/24 Unknown Rx Ximena 3 Sensor device) insulin aspart U-100 100 unit/mL 12 unit (0.12 mL) subcut TIDCM 07/01/24 Unknown Rx (3 mL) subcutaneous pen (Novolog DIABETES #32.4 mL FlexPen U-100 Insulin aspart) insulin glargine 100 unit/mL (3 26 unit (0.26 mL) subcut QAM 07/01/24 Unknown Rx mL) subcutaneous pen (Lantus insulin #23.4 mL Solostar U-100 Insulin) lisinopril 40 mg tablet 40 mg PO QDAY #90 tabs 10/26/24 Unknown Rx isosorbide mononitrate 60 mg 60 mg PO DAILY heart #90 tabs 11/02/24 Unknown Rx tablet,extended release 24 hr dulaglutide 0.75 mg/0.5 mL 0.75 mg (0.5 mL) subcut QWEEK 4 12/03/24 Unknown Rx subcutaneous pen injector weeks #2 mL (Trulicity) levothyroxine 25 mcg tablet 25 mcg PO DAILY THYROID 12/10/24 Unknown History ondansetron 4 mg disintegrating 4 mg PO Q8H PRN PRN Nausea #10 tabs 12/14/24 Unknown Rx tablet Allergy/AdvReac Type Severity Reaction Status Date / Time No Known Allergies Allergy Verified 12/14/24 12:23 Family History Father Myocardial infarction Surgical History History of right coronary artery stent placement (08/28/22) History of coronary artery stent placement (~08/29/22) History of coronary artery stent placement (08/28/22) Social History household members: family housing: house Smoking Status: Never smoker alcohol intake: never substance use type: marijuana caffeine: Yes Type: carbonated beverages Number of servings: 8 and coffee Number of servings: 1 what type of physical activity do you participate in: none ROS <PREETI Gomez - Last Filed: 12/14/24 18:37> ROS ED Constitutional Constitutional ED: Denies chills or fever(s) Cardiovascular Cardiovascular: Reports chest pain; Denies palpitations Respiratory/Chest Respiratory/Chest: Reports cough, dyspnea on exertion and sputum; Denies tachypnea or wheezing Gastrointestinal Gastrointestinal: Reports diarrhea and nausea; Denies abdominal pain or vomiting Genitourinary Genitourinary ED: Denies dysuria, hematuria or urinary urgency Musculoskeletal Musculoskeletal: Denies arthralgias or myalgias Integumentary Denies rash Neurologic Neurologic: Denies weakness EXAM <PREETI Gomez - Last Filed: 12/14/24 18:37> Physical Exam Const Vital Signs: 12/14/24 12:23 12/14/24 12:41 12/14/24 12:41 Temperature 97.8 F Temperature Source Oral Pulse Rate 95 Respiratory Rate 18 Respiratory Effort Normal Non-Labored Blood Pressure 151/96 H Blood Pressure Mean 114 Pulse Ox 98 Oxygen Delivery Method Room Air Room Air 12/14/24 13:22 12/14/24 13:45 12/14/24 14:00 Temperature Temperature Source Pulse Rate 70 84 73 Respiratory Rate 16 23 H Respiratory Effort Blood Pressure 133/87 H 156/98 H 128/78 H Blood Pressure Mean 102 104 94 Pulse Ox 96 95 98 Oxygen Delivery Method 12/14/24 14:30 12/14/24 15:00 12/14/24 16:00 Temperature Temperature Source Pulse Rate 83 78 71 Respiratory Rate 22 H 16 16 Respiratory Effort Blood Pressure 135/80 H 135/83 H 110/79 Blood Pressure Mean 99 100 89 Pulse Ox 94 98 96 Oxygen Delivery Method Room Air 12/14/24 16:11 Temperature 97.9 F Temperature Source Pulse Rate 71 Respiratory Rate 16 Respiratory Effort Blood Pressure 110/79 Blood Pressure Mean 89 Pulse Ox 96 Oxygen Delivery Method Positive well nourished, well developed and no apparent distress General Appearance ED: well developed HEENT Reports normocephalic and head/scalp atraumatic Mouth ED: Yes moist mucous membranes normal Eyes PERRL and EOMs intact bilaterally Neck full ROM and supple Chest Wall inspection of chest normal Resp normal respiratory effort and clear to auscultation bilaterally Cardio regular rate and regular rhythm Peripheral Pulses: radial pulses present bilateral (Bilateral radial pulse 2+ and equal) GI soft to palpation, non-tender, non-distended and no masses Back/Spine normal ROM and normal to inspection Extremity normal to inspection and full ROM Neuro oriented x3, CN's II-XII intact bilaterally, moves all extremities, no focal motor deficits and no sensory deficits noted Sensorium / Orientation: awake and alert Psych mental status grossly normal and thought process normal Skin no rashes or lesions noted and no wounds <Dr. Saul Alicea MD - Last Filed: 12/14/24 17:18> Physical Exam Const Vital Signs: 12/14/24 12:23 12/14/24 12:41 12/14/24 12:41 Temperature 97.8 F Temperature Source Oral Pulse Rate 95 Respiratory Rate 18 Respiratory Effort Normal Non-Labored Blood Pressure 151/96 H Blood Pressure Mean 114 Pulse Ox 98 Oxygen Delivery Method Room Air Room Air 12/14/24 13:22 12/14/24 13:45 12/14/24 14:00 Temperature Temperature Source Pulse Rate 70 84 73 Respiratory Rate 16 23 H Respiratory Effort Blood Pressure 133/87 H 156/98 H 128/78 H Blood Pressure Mean 102 104 94 Pulse Ox 96 95 98 Oxygen Delivery Method 12/14/24 14:30 12/14/24 15:00 12/14/24 16:00 Temperature Temperature Source Pulse Rate 83 78 71 Respiratory Rate 22 H 16 16 Respiratory Effort Blood Pressure 135/80 H 135/83 H 110/79 Blood Pressure Mean 99 100 89 Pulse Ox 94 98 96 Oxygen Delivery Method Room Air 12/14/24 16:11 Temperature 97.9 F Temperature Source Pulse Rate 71 Respiratory Rate 16 Respiratory Effort Blood Pressure 110/79 Blood Pressure Mean 89 Pulse Ox 96 Oxygen Delivery Method MDM <PREETI Gomez - Last Filed: 12/14/24 18:37> [place] MDM Narrative Medical decision making narrative: Patient presenting today with midsternal chest tightness/pressure he has had over the past 3 days continuously as well as URI symptoms. He does have a significant cardiac history. I did review his previous cardiology notes. History of CAD, last had a stress test in March 2024 that was negative for ischemia. Labs will be obtained, CBC shows slight leukocytosis at 11.6, sodium 135, glucose 202, nonsignificant delta troponin. Chest x-ray negative for infiltrate other cardiopulmonary abnormality. Low suspicion for PE. I do suspect he likely has a viral illness causing his postnasal drip, cough, nausea, and diarrhea. This likely is contributing to his chest symptoms as well. He is negative for COVID/influenza/RSV. Given his nonsignificant delta troponin, low suspicion that this is cardiac in nature. However, I recommended he follow-up closely with his manager float and PCP. Strict return instructions were discussed and patient discharged home in stable condition. Lab Data Attestation: I reviewed the patient's lab results. Labs: Laboratory Results - last 24 hr 12/14/24 12/14/24 12:33 14:52 WBC 11.6 H RBC 5.40 Hgb 16.6 H Hct 49.9 MCV 92.4 MCH 30.7 MCHC 33.3 RDW Std Deviation 44.4 H RDW Coeff of Elias 13.1 Plt Count 272 MPV 10.9 Immature Gran % (Auto) 0.400 Neut % (Auto) 58.5 Lymph % (Auto) 26.0 [place] % (Auto) 8.1 Eos % (Auto) 6.3 H Baso % (Auto) 0.7 Absolute Neuts (auto) 6.8 Absolute Lymphs (auto) 3.00 Nucleated RBC % 0 Sodium 135 L Potassium 4.1 Chloride 102 Carbon Dioxide 28.0 Anion Gap 5 BUN 13 Creatinine 1.04 Estim Creat Clear Calc 114.66 Est GFR (MDRD) Af Amer 98 Est GFR (MDRD) Non-Af 81 BUN/Creatinine Ratio 12.5 Glucose 202 H Calcium 9.4 Troponin I High Sens 6 5 Radiography X-Ray: Read by ED Physician Diagnostic Testing: Clinical Impression(s) from Imaging Studies Chest X-Ray 12/14/24 12:44 IMPRESSION: No acute airspace abnormality. Reading Location: [facility] EKG Initial EKG: Comments: 60 bpm, normal sinus rhythm, no ST elevation, interpreted by attending ED physician <Dr. Saul Alicea MD - Last Filed: 12/14/24 17:18> MDM Lab Data Labs: Laboratory Results - last 24 hr 12/14/24 12/14/24 12:33 14:52 WBC 11.6 H RBC 5.40 Hgb 16.6 H Hct 49.9 MCV 92.4 MCH 30.7 MCHC 33.3 RDW Std Deviation 44.4 H RDW Coeff of Elias 13.1 Plt Count 272 MPV 10.9 Immature Gran % (Auto) 0.400 Neut % (Auto) 58.5 Lymph % (Auto) 26.0 [place] % (Auto) 8.1 Eos % (Auto) 6.3 H Baso % (Auto) 0.7 Absolute Neuts (auto) 6.8 Absolute Lymphs (auto) 3.00 Nucleated RBC % 0 Sodium 135 L Potassium 4.1 Chloride 102 Carbon Dioxide 28.0 Anion Gap 5 BUN 13 Creatinine 1.04 Estim Creat Clear Calc 114.66 Est GFR (MDRD) Af Amer 98 Est GFR (MDRD) Non-Af 81 BUN/Creatinine Ratio 12.5 Glucose 202 H Calcium 9.4 Troponin I High Sens 6 5 Radiography Diagnostic Testing: Clinical Impression(s) from Imaging Studies Chest X-Ray 12/14/24 12:44 IMPRESSION: No acute airspace abnormality. Reading Location: [facility] Treatment and Re-Evaluation Comments:: I have personally performed a face to face assessment of the patient and have reviewed the BASIL Note. I performed a substantive portion of the visit including all aspects of the following. My ríos findings include: History is chest tightness along with URI symptoms for the past 3 days, constant. Nonpleuritic. Little dyspnea with exertion but otherwise not out of breath. No leg edema or orthopnea. History of NSTEMI. Exam is lungs clear auscultation, heart regular, no distress. No leg edema. No calf tenderness. Equal bilateral radial pulses. Medical Decison Making EKG shows nothing acute except for poor R wave progression but this is old compared with his prior and it is unchanged. 2 sequential troponin measurements negative, 1 view chest x-ray normal my interpretation, patient has normal vital signs and this does not appear to be likely cardiac in etiology. Stable for discharge and follow-up. Other additions or changes: [None] Discharge Plan Triage Chief Complaint: Chest Pain Other Complaint: Nausea/Vomiting/Diarrhea ED Midlevel Provider: Cinthya Block ED Provider: aSul Alicea Dx/Rx/DC Orders Clinical Impression: Chest pain, Nausea Instructions: ED Chest Pain, Uncertain Cause Prescriptions: New ondansetron 4 mg tablet,disintegrating 4 mg PO Q8H PRN PRN (Reason: Nausea) Qty: 10 0RF No Action levothyroxine 25 mcg tablet 25 mcg PO DAILY (DME) 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 meter [OneTouch Verio Flex meter] Misc See Rx Instructions .ROUTE .MEDSUPPLY Qty: 1 0RF Rx Instructions: As directed (DME) OneTouch Verio test strips Strip See Rx Instructions .ROUTE .MEDSUPPLY Qty: 450 3RF Rx Instructions: 5x/day (DME) FreeStyle Lite Strips Strip See Rx Instructions .ROUTE .MEDSUPPLY Qty: 100 6RF Rx Instructions: 4x/day (DME) FreeStyle Ximena 2 [place] Misc See Rx Instructions .Route Qty: 1 0RF Rx Instructions: As directed duloxetine 30 mg capsule,delayed release(DR/EC) 30 mg PO DAILY (DME) FreeStyle Ximena 3 [place] Misc See Rx Instructions .Route Qty: 1 0RF Rx Instructions: As directed (DME) FreeStyle Ximena 3 Sensor Device See Rx Instructions .Route Qty: 2 5RF Rx Instructions: 1 sensor q 14 days atorvastatin 40 mg tablet 40 mg PO DAILY omeprazole 20 mg capsule,delayed release(DR/EC) 20 mg PO DAILY aspirin 81 mg tablet,chewable 81 mg PO BREAKFAST nitroglycerin 0.4 mg tablet, sublingual 0.4 mg sublingual Q5M PRN (Reason: CHEST PAIN ) (DME) pen needle, diabetic 31 gauge x 1/4 needle See Rx Instructions .ROUTE .MEDSUPPLY Qty: 120 6RF Rx Instructions: 4x/day (DME) FreeStyle Ximena 2 Sensor Kit See Rx Instructions .Route Qty: 6 1RF Rx Instructions: 1 sensor q 14 days clopidogrel [Plavix] 75 mg tablet 75 mg PO DAILY Qty: 90 3RF insulin aspart U-100 [Novolog FlexPen U-100 Insulin] 100 unit/mL (3 mL) insulin pen 12 unit SUBCUT TIDCM Qty: 32.4 1RF insulin glargine [Lantus Solostar U-100 Insulin] 100 unit/mL (3 mL) insulin pen 26 unit subcut QAM Qty: 23.4 1RF lisinopril 40 mg tablet 40 mg PO QDAY Qty: 90 3RF isosorbide mononitrate 60 mg tablet extended release 24 hr 60 mg PO DAILY Qty: 90 3RF Trulicity 0.75 mg/0.5 mL pen injector 0.75 mg subcut QWEEK 28 Days Qty: 2 3RF Primary Care Provider: Darinel Armstrong Referrals: Eduardo Harrison MD [Med Staff - Active Staff] - 5-7 Days Darinel Armstrong MD [Primary Care Provider] - 5-7 Days Activity Restrictions/Additional Instructions: Follow-up with cardiology and return for any worsening symptoms. Print Language: Kazakh Disposition Disposition: Home, Self Care Discharge Date/Time: 12/14/24 16:28
[2024-12-14 13:03] LABS: Anion Gap 5 (5-15); BUN 13 mg/dL (7-18); BUN/Creat Ratio 12.5 RATIO (10-20); Calcium,Total 9.4 mg/dL (8.5-10.1); Chloride 102 mmol/L (98-107); Creatinine, Serum 1.04 mg/dL (0.70-1.30); EST Glomerular Filtration Rate 81 mL/min (>60); Est Glom Filt Rate - Afr Amer 98 mL/min (>60); Estimated Creatinine Clearance 114.66 ml/min; Glucose 202 mg/dL (74-106); Potassium 4.1 mmol/L (3.5-5.1); Sodium Level 135 mmol/L (136-145); Troponin-I HS (w/2H Reflex) 6 pg/mL (3.0-78.0)
[2024-12-14 14:48] LABS: Reflex Troponin-HS? (from REC) Y
[2024-12-14 15:37] LABS: Troponin-I HS 5 pg/mL (3.0-78.0)
[2024-12-14] MEDS: Ondansetron 4 MG/2 ML Vial IV (15:48)
== END 2024-12-14 16:28 | disposition home or self-care (01) ==
PROVIDERS: Emergency Provider Emergency Medicine; PCP Family Medicine; Referring Provider Emergency Medicine; Visit Provider Emergency Medicine
DX: R07.9 Chest pain, unspecified (principal); E11.9 Type 2 diabetes mellitus without complications; Z79.4 Long term (current) use of insulin; R11.2 Nausea with vomiting, unspecified; I10 Essential (primary) hypertension; Z11.52 Encounter for screening for COVID-19; I25.10 Atherosclerotic heart disease of native coronary artery without angina pectoris; E78.5 Hyperlipidemia, unspecified; Z79.82 Long term (current) use of aspirin; Z79.02 Long term (current) use of antithrombotics/antiplatelets; Z79.85 Long-term (current) use of injectable non-insulin antidiabetic drugs; Z79.890 Hormone replacement therapy; Z79.899 Other long term (current) drug therapy; Z95.5 Presence of coronary angioplasty implant and graft
CPT/HCPCS: 71046; 80048; 84484; 85025; 87631; 93005; 96374; 99284; A4216; J2405

== ENCOUNTER → 2025-03-02 | Outpatient (CLI) | payer MEDICAID, SELFPAY ==
[2023-01-26 01:17] VITALS: BMI 38.2
[2025-03-02 16:08] LABS: Absolute Lymphocyte Count 2.91 X10^3/uL (0.83-4.51); Basophil# 0.09 X10^3/uL; Basophil% 0.7 % (0-1); Eosinophils% 8.3 % (0-5); Hematocrit 46.5 % (40-54); Hemoglobin 15.9 g/dL (13.0-16.5); Lymphocyte # 2.91 X10^3/ul (0.83-4.51); Lymphocyte % 24.1 % (19-41); Mean Corp Hgb Conc 34.2 g/dL (32-36); Mean Corpuscular Hgb 31.1 pg (27.0-32.0); Mean Corpuscular Volume 90.8 fL (80-94); Mean Platelet Vol. 10.9 fl (6.2-12.0); Monocyte# 1.06 X10^3/uL; Monocyte% 8.8 % (0-10); NRBC Flagged by Analyzer 0 % (0-5); Neutrophil # 6.95 X10^3/uL (2.7-7.7); Neutrophil % 57.8 % (47-70); Platelet Count 282 K/mm3 (150-450); RBC Distribution Width CV 12.7 % (11.6-14.6); RBC Distribution Width SD 41.6 fl (35.1-43.9); Red Blood Count 5.12 M/mm3 (4.6-6.2); White Blood Count 12.1 K/mm3 (4.4-11.0)
[2025-03-02 16:47] LABS: Vitamin D,25 Hydroxy 22.1 ng/mL (30-100)
[2025-03-05 16:46] LABS: Cholesterol 142 mg/dL (<=200); High Density Lipoprotein 38 mg/dL; Low Density Lipoprotein Calc. 79 mg/dL; Triglycerides 125 mg/dL; Very Low Density Lipoprotein 25 mg/dL (5-40); cholesterol:hdl ratio screen 3.75
== END | disposition home or self-care (01) ==
LOC: LAB 15:37
PROVIDERS: Nurse Practitioner Family; PCP Family Medicine; Referring Provider Student in an Organized Health Care Education/Training Program; Visit Provider Student in an Organized Health Care Education/Training Program
DX: E11.65 Type 2 diabetes mellitus with hyperglycemia (principal); Z79.4 Long term (current) use of insulin; E78.2 Mixed hyperlipidemia; E55.9 Vitamin D deficiency, unspecified; R53.83 Other fatigue
CPT/HCPCS: 36415; 80061; 82306; 84443; 85025

== ENCOUNTER 2025-03-31 18:34 | Emergency (ER) | payer MEDICAID, SELFPAY ==
[2023-01-26 01:17] VITALS: BMI 38.2
[2025-03-31 18:35] VITALS: BP 134/79; PULSE 70; RESP 18; TEMP 36.6; O2SAT 99; BMI 37.4
--- NOTE | 2025-03-31 21:05 | EDS_ITS ---
HPI History of Present Illness Chief Complaint: Dental Detail of Chief Complaint: Left upper jaw dental pain for 2 weeks. Unable to get into see a dentist. Informant: patient and spouse/S.O. Onset/Context/Timing Onset: Weeks Context: Gradual Onset Timing: Continuous Current Severity: Moderate Maximum Severity: Moderate Associated Symptoms Assocated Symptom - Dental: Negative for fever, jaw swelling, face swelling, cold sensitivity or hot sensitivity Narrative Narrative: 49-year-old male history of prior MT on Plavix and aspirin. States has had left upper dental pain for 2 weeks. Has care source insurance. The earliest thing getting to be seen is August. Said he would no dentist locally will get him in. Complaining of pain. No facial swelling or fever. Prior similar symptoms: Yes Recent Illness/Hospitalization: No PFSH PFS Medical History Bradycardia Hypothyroidism Obesity Diabetes History of non-ST elevation myocardial infarction (NSTEMI) (08/28/22) Atherosclerosis of coronary artery without angina pectoris Essential hypertension Substance abuse Anxiety Depression Obesity Kidney stones Cataract Diabetes mellitus type II, uncontrolled Gastroesophageal reflux History of anxiety Hyperlipidemia Home Medications ?Medication ?Instructions ?Recorded ?Last Taken ?Type OneTouch Verio Flex meter #1 ea 09/04/21 Unknown Rx (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 meter) OneTouch Verio test strips (blood #450 ea 09/04/21 Unk nown Rx sugar diagnostic) FreeStyle Lite Strips (blood sugar #100 ea 09/06/21 Un known Rx diagnostic) aspirin 81 mg chewable tablet 81 mg PO BREAKFAST HEART HEALTH 08/28/22 04/01/24 History atorvastatin 40 mg tablet 40 mg PO DAILY CHOLESTEROL 1 10/28/21 04/01/24 History omeprazole 20 mg capsule,delayed 20 mg PO DAILY GERD 1 10/28/21 04/01/24 History release nitroglycerin 0.4 mg sublingual 0.4 mg sublingual Q5M PRN CHEST 01/01/23 Unknown History tablet PAIN flash glucose scanning reader #1 ea 05/08/23 Unknown R x (FreeStyle Ximena 2 [place]) duloxetine 30 mg capsule,delayed 30 mg PO DAILY depres donna 07/05/23 04/01/24 History release flash glucose sensor (FreeStyle #6 ea 11/21/23 Unknown Rx Ximena 2 Sensor kit) 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 sensor (FreeStyle #2 ea 06/08/24 Unknown Rx Ximena 3 Sensor device) 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,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,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 #1 ea 06/08/24 Unknown Rx (FreeStyle Ximena 3 [place]) isosorbide mononitrate 60 mg 60 mg PO DAILY heart #90 tabs 11/02/24 Unknown Rx tablet,extended release 24 hr dulaglutide 0.75 mg/0.5 mL 0.75 mg (0.5 mL) subcut QWE EK 4 12/03/24 Unknown Rx subcutaneous pen injector weeks #2 mL (Trulicity) levothyroxine 25 mcg tablet 25 mcg PO DAILY THYROID Unknown History ondansetron 4 mg disintegrating 4 mg PO Q8H PRN PRN Na usea #10 tabs 12/14/24 Unknown Rx tablet clopidogrel 75 mg tablet (Plavix) 75 mg PO DAILY BLOOD THINNER #90 12/21/24 Unknown Rx tabs pen needle, diabetic 31 gauge x #120 ea 01/07/25 Unkno wn Rx 1/4 insulin aspart U-100 100 unit/mL 12 unit (0.12 mL) sub cut TIDCM 01/11/25 Unknown Rx (3 mL) subcutaneous pen (Novolog DIABETES #32.4 mL FlexPen U-100 Insulin aspart) insulin glargine 100 unit/mL (3 26 unit (0.26 mL) subc ut QAM 01/11/25 Unknown Rx mL) subcutaneous pen (Lantus insulin #23.4 mL Solostar U-100 Insulin) lisinopril 40 mg tablet 10 mg PO QDAY 03/02/25 Unkno wn History penicillin V potassium 500 mg 500 mg PO 4X/DAY #40 tab s 03/31/25 Unknown Rx tablet Allergy/AdvReac Type Severity Reaction Status Date / Time No Known Allergies Allergy Verified 03/31/25 18:35 Family History Father Myocardial infarction Surgical History History of right coronary artery stent placement (08/28/22) History of coronary artery stent placement (~08/29/22) History of coronary artery stent placement (08/28/22) Social History household members: family housing: house Smoking Status: Never smoker alcohol intake: never substance use type: marijuana caffeine: Yes Type: carbonated beverages Number of servings: 8 and coffee Number of servings: 1 what type of physical activity do you participate in: none ROS ROS ED ROS Narrative Denies recent illness. Constitutional Constitutional ED: Denies chills or fever(s) Eyes Eyes: Denies blurry vision ENT ENT ED: Denies ear pain Cardiovascular Cardiovascular: Denies chest pain Respiratory/Chest Respiratory/Chest: Denies cough or dyspnea Gastrointestinal Gastrointestinal: Denies abdominal pain Genitourinary Genitourinary ED: Denies dysuria or hematuria Musculoskeletal Musculoskeletal: Denies arthralgias Integumentary Denies abscess Neurologic Neurologic: Denies headache(s) Psychiatric Psychiatric: Denies anxiety Endocrine Endocrinology: Denies cold intolerance Hematologic/Lymphatic Hematologic/Lymphatic: Denies easy bleeding or easy bruising Allergic/Immunologic Allergic/Immunologic ED: Denies mouth swelling, tongue swelling or urticaria EXAM Physical Exam Narrative Exam Narrative: 49-year-old male vital signs stable afebrile. No acute distress. H EENT exam pupils round reactive light. Moist mucous membranes. Left upper jaw third molar from the back has a large cavity. Tender to palpation. He has other areas of dental cavities. No gingival swelling. No abscess. No trismus. No trouble swallowing or breathing. Neck nontender no lymphadenopathy. Lungs clear. Heart regular rhythm. Otherwise exam unremarkable. Const Vital Signs: 03/31/25 18:35 Temperature 97.8 F Temperature Source Temporal Pulse Rate 70 Respiratory Rate 18 Blood Pressure 134/79 H Blood Pressure Mean 97 Pulse Ox 99 Oxygen Delivery Method Room Air Positive well nourished and well developed; Negative for cachectic, contractures or unkempt General Appearance ED: well developed and NAD; Negative for unkempt, cachectic or contractures Nutritional Appearance: Negative for cachectic HEENT HEENT Narrative: Left upper third to the last molar cavity. Tender palpation. No abscess. No gingival swelling. No trismus. Negative for trauma or tenderness Mouth ED: Yes oral and palatal mucosa normal, Yes lips normal, Yes tongue normal, Yes salivary gland normal, No mouth trauma and No salivary gland abnormal Mouth: oral and palatal mucosa normal, lips normal, tongue normal, salivary gland normal, No mouth trauma and No salivary gland abnormal Teeth and Gingiva: caries Throat: posterior oropharynx normal Eyes PERRL and EOMs intact bilaterally Neck no lymphadenopathy, supple and no JVD Lymph Lymphatic: no lymphadenopathy noted Chest Wall inspection of chest normal and palpation of chest normal Resp normal respiratory effort, no retractions and clear to auscultation bilaterally Cardio regular rhythm, S1 normal heart sound, S2 normal heart sound and no murmurs GI normal to inspection, nondistended, normoactive bowel sounds, non-tender, non- distended and no masses Back/Spine no CVA tenderness Extremity normal to inspection and no joint enlargement Neuro oriented x3, CN's II-XII intact bilaterally and moves all extremities Sensorium / Orientation: alert, oriented to person, oriented to place and oriented to time; Negative for orientation impaired Motor Exam: strength 5/5 throughout Psych mental status grossly normal Appearance: Negative for unkempt Skin no rashes or lesions noted and no wounds MDM MDM MDM Narrative Medical decision making narrative: 49-year-old male dental pain from dental cavity. Given 1 [place] here. Tylenol at home for pain. Pen-Vee K 4 times a day for 10 days. Follow-up with a dentist soon as possible. [facility]. History & Record Review Discussion w/independent historian: Patient and Family Additional record(s) reviewed:: Prior inpatient record, Prior outpatient record, Prior ED visit and Prior labs Discharge Plan Triage Chief Complaint: Dental ED Provider: Ernie Chau Dx/Rx/DC Orders Clinical Impression: Pain, dental, Dental cavity, History of coronary artery disease, History of diabetes mellitus Instructions: ED Dental Pain, ED Dental Cavity Prescriptions: New penicillin V potassium 500 mg tablet 500 mg PO 4X/DAY Qty: 40 0RF No Action levothyroxine 25 mcg tablet 25 mcg PO DAILY (DME) 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 meter [OneTouch Verio Flex meter] Misc See Rx Instructions .ROUTE .MEDSUPPLY Qty: 1 0RF Rx Instructions: As directed (DME) OneTouch Verio test strips Strip See Rx Instructions .ROUTE .MEDSUPPLY Qty: 450 3RF Rx Instructions: 5x/day (DME) FreeStyle Lite Strips Strip See Rx Instructions .ROUTE .MEDSUPPLY Qty: 100 6RF Rx Instructions: 4x/day (DME) FreeStyle Ximena 2 [place] Misc See Rx Instructions .Route Qty: 1 0RF Rx Instructions: As directed duloxetine 30 mg capsule,delayed release(DR/EC) 30 mg PO DAILY (DME) FreeStyle Ximena 3 [place] Misc See Rx Instructions .Route Qty: 1 0RF Rx Instructions: As directed (DME) FreeStyle Ximena 3 Sensor Device See Rx Instructions .Route Qty: 2 5RF Rx Instructions: 1 sensor q 14 days lisinopril 40 mg tablet 10 mg PO QDAY atorvastatin 40 mg tablet 40 mg PO DAILY omeprazole 20 mg capsule,delayed release(DR/EC) 20 mg PO DAILY aspirin 81 mg tablet,chewable 81 mg PO BREAKFAST nitroglycerin 0.4 mg tablet, sublingual 0.4 mg sublingual Q5M PRN (Reason: CHEST PAIN ) ondansetron 4 mg tablet,disintegrating 4 mg PO Q8H PRN PRN (Reason: Nausea) Qty: 10 0RF (DME) FreeStyle Ximena 2 Sensor Kit See Rx Instructions .Route Qty: 6 1RF Rx Instructions: 1 sensor q 14 days isosorbide mononitrate 60 mg tablet extended release 24 hr 60 mg PO DAILY Qty: 90 3RF Trulicity 0.75 mg/0.5 mL pen injector 0.75 mg subcut QWEEK 28 Days Qty: 2 3RF clopidogrel [Plavix] 75 mg tablet 75 mg PO DAILY Qty: 90 3RF (DME) pen needle, diabetic 31 gauge x 1/4 needle See Rx Instructions .ROUTE .MEDSUPPLY Qty: 120 6RF Rx Instructions: 4x/day insulin aspart U-100 [Novolog FlexPen U-100 Insulin] 100 unit/mL (3 mL) insulin pen 12 unit SUBCUT TIDCM Qty: 32.4 1RF insulin glargine [Lantus Solostar U-100 Insulin] 100 unit/mL (3 mL) insulin pen 26 unit subcut QAM Qty: 23.4 1RF Primary Care Provider: Darinel Armstrong Referrals: Darinel Armstrong MD [Primary Care Provider] - [facility],Jonna Sanchez [Non-Staff] - As soon as possible Activity Restrictions/Additional Instructions: Tylenol for pain. Ice to your jaw. The antibiotic penicillin 4 times a day till gone. Try the [facility] for possible dental care across the street. Also [facility] in [place] or [facility] in [place]. Print Language: Serbian Disposition Disposition: Home, Self Care
[2025-03-31] MEDS: Penicillin Vk 250 MG Tablet 500 MG PO (21:14)
[2025-03-31] MEDS: HYDROcodone Bitartrate/Apap 5/325 Tablet PO (21:14)
[2025-03-31 21:22] VITALS: BP 134/72; PULSE 80; RESP 17; TEMP 36.9; O2SAT 99
--- NOTE | 2025-03-31 21:27 | CM.ED ---
Social Work SW met with patient who stated he was having dental pain and was unable to get into the dentist until August. SW provided patient with a list of dental clinics. Patient appreciative of same. No further needs identified at this time. Alejandra Lawrence, PAPER TUBE MACHINE OPERATOR, [employer]NAGER [employer]
== END 2025-03-31 21:23 | disposition home or self-care (01) ==
PROVIDERS: Emergency Provider Emergency Medicine; PCP Family Medicine; Visit Provider Emergency Medicine
DX: K08.89 Other specified disorders of teeth and supporting structures (principal); E11.9 Type 2 diabetes mellitus without complications; Z79.4 Long term (current) use of insulin; K02.9 Dental caries, unspecified; R68.84 Jaw pain; I25.10 Atherosclerotic heart disease of native coronary artery without angina pectoris; I10 Essential (primary) hypertension; E78.5 Hyperlipidemia, unspecified; E03.9 Hypothyroidism, unspecified; I25.2 Old myocardial infarction; Z79.82 Long term (current) use of aspirin; Z79.02 Long term (current) use of antithrombotics/antiplatelets; Z79.85 Long-term (current) use of injectable non-insulin antidiabetic drugs; Z79.890 Hormone replacement therapy; Z79.899 Other long term (current) drug therapy; Z95.5 Presence of coronary angioplasty implant and graft
CPT/HCPCS: 99283

== ENCOUNTER 2025-06-08 17:31 | Emergency (ER) | payer MEDICAID, SELFPAY ==
[2023-01-26 01:17] VITALS: BMI 38.2
[2025-06-08 17:32] VITALS: BP 133/82; PULSE 70; RESP 22; TEMP 37.1; O2SAT 95; BMI 36.3
--- NOTE | 2025-06-08 18:26 | EX.ED.VIS.UR ---
HPI HPI - URI History of Present Illness Chief Complaint: Cold Sx Informant: patient Onset/Context/Timing Onset: Weeks (2) Context: Gradual Onset Timing: Continuous Quality: Congested Location: Upper respiratory tract Worsened by: - (Movement and activity) Relieved by: - (Rest) Associated Symptoms Associated Symptoms: Positive for Nasal Congestion, Headache, Sinus Pressure, Myalgias, Shortness of Breath and Productive Cough (White sputum); Negative for Nausea, Vomiting, Diarrhea, Chest Pain, Nonproductive cough or Hemoptysis Narrative Narrative: Patient presents with cough and congestion that has been constant for the past 2 weeks. Patient states it came on gradually. Patient states she is coughing up some white sputum. Patient denies any fevers or chills. Patient states his symptoms are worse when he is up and moving. Patient states it is better with rest. Patient admits to some nasal congestion and sinus pressure. Patient also admits to some bodyaches and headaches. Patient states he feels short of breath at times. Patient denies any chest pain. Patient denies any fevers or chills. ROS ROS ED Constitutional Constitutional ED: Denies chills or fever(s) Eyes Eyes: Denies blurry vision or change in vision ENT ENT ED: Reports rhinorrhea; Denies sore throat Cardiovascular Cardiovascular: Denies chest pain or palpitations Respiratory/Chest Respiratory/Chest: Reports dyspnea; Denies cough Gastrointestinal Gastrointestinal: Denies nausea or vomiting Genitourinary Genitourinary ED: Denies dysuria or hematuria Musculoskeletal Musculoskeletal: Reports neck pain; Denies back pain Integumentary Reports rash; Denies abscess Neurologic Neurologic: Denies headache(s) or weakness Allergic/Immunologic Allergic/Immunologic ED: Denies mouth swelling or urticaria [facility] Medical History Bradycardia Hypothyroidism Obesity Diabetes History of non-ST elevation myocardial infarction (NSTEMI) (08/28/22) Atherosclerosis of coronary artery without angina pectoris Essential hypertension Substance abuse Anxiety Depression Obesity Kidney stones Cataract Diabetes mellitus type II, uncontrolled Gastroesophageal reflux History of anxiety Hyperlipidemia Home Medications ?Medication ?Instructions ?Recorded ?Last Taken ?Type aspirin 81 mg chewable tablet 81 mg PO BREAKFAST HEART HEALTH 08/28/22 04/01/24 History atorvastatin 40 mg tablet 40 mg PO DAILY CHOLESTEROL 08/28/22 04/01/24 History omeprazole 20 mg capsule,delayed 20 mg PO DAILY GERD 08/28/22 04/01/24 History release nitroglycerin 0.4 mg sublingual 0.4 mg sublingual Q5M PRN CHEST 01/01/23 Unknown History tablet PAIN duloxetine 30 mg capsule,delayed 30 mg PO DAILY depression 07/05/23 04/01/24 History 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,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,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 ea 06/08/24 Unknown Rx (FreeStyle Ximena 3 [place]) isosorbide mononitrate 60 mg 60 mg PO DAILY heart #90 tabs 11/02/24 Unknown Rx tablet,extended release 24 hr levothyroxine 25 mcg tablet 25 mcg PO DAILY THYROID 12/10/24 Unknown History ondansetron 4 mg disintegrating 4 mg PO Q8H PRN PRN Nausea #10 tabs 12/14/24 Unknown Rx tablet clopidogrel 75 mg tablet (Plavix) 75 mg PO DAILY BLOOD THINNER #90 12/21/24 Unknown Rx tabs pen needle, diabetic 31 gauge x #120 ea 01/07/25 Unknown Rx 1/4 insulin aspart U-100 100 unit/mL 12 unit (0.12 mL) subcut TIDCM 01/11/25 Unknown Rx (3 mL) subcutaneous pen (Novolog DIABETES #32.4 mL FlexPen U-100 Insulin aspart) 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 sensor (FreeStyle #2 ea 04/14/25 Unknown Rx Ximena 3 Sensor device) blood sugar diagnostic (True #50 ea 04/15/25 Unknown Rx Metrix Glucose Test Strip) 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 meter (True Metrix #1 ea 04/15/25 Unknown Rx Glucose Meter) insulin glargine 100 unit/mL (3 26 unit (0.26 mL) subcut QAM 04/21/25 Unknown Rx mL) subcutaneous pen (Lantus insulin #23.4 mL Solostar U-100 Insulin) dulaglutide 1.5 mg/0.5 mL 1.5 mg (0.5 mL) subcut QWEEK #2 mL 05/19/25 Unknown Rx subcutaneous pen injector (Trulicity) lisinopril 40 mg tablet 40 mg PO QDAY #90 tabs 05/25/25 Unknown Rx albuterol sulfate 90 mcg/actuation 1 - 2 puff inhalation Q4H PRN PRN 06/08/25 Unknown Rx aerosol inhaler (Ventolin HFA) Wheezing ##1 Allergy/AdvReac Type Severity Reaction Status Date / Time No Known Allergies Allergy Verified 06/08/25 17:32 Family History Father Myocardial infarction Surgical History History of right coronary artery stent placement (08/28/22) History of coronary artery stent placement (~08/29/22) History of coronary artery stent placement (08/28/22) Social History household members: family housing: house Smoking Status: Never smoker alcohol intake: never substance use type: marijuana caffeine: Yes Type: carbonated beverages Number of servings: 8 and coffee Number of servings: 1 what type of physical activity do you participate in: none EXAM Physical Exam Const Vital Signs: 06/08/25 17:32 06/08/25 17:34 06/08/25 18:38 Temperature 98.7 F Temperature Source Oral Pulse Rate 70 60 Respiratory Rate 22 H 16 Respiratory Effort Normal Respiratory Pattern Normal Normal Blood Pressure 133/82 H Blood Pressure Mean 99 Pulse Ox 95 Oxygen Delivery Method Room Air Positive well nourished and well developed Constitutional Narrative: BMI is 36.3. General Appearance ED: well developed and NAD HEENT Reports moist mucous membranes normocephalic and atraumatic Neck supple and no JVD Resp normal respiratory effort Auscultation: wheezes expiratory wheezes and throughout Cardio Rate: regular rate Rhythm: regular rhythm GI non-tender and non-distended Palpation: soft Extremity normal to inspection and full ROM Neuro oriented x3, CN's II-XII intact bilaterally and no sensory deficits noted Sensorium / Orientation: alert Motor Exam: strength 5/5 throughout Psych mental status grossly normal MDM MDM MDM Narrative Medical decision making narrative: Differential diagnosis includes pneumonia, bronchitis, viral upper respiratory infection, and reactive airway disease. Chest x-ray will be obtained to assess for pneumonia or bronchitis. COVID-19, influenza, and RSV PCR will be obtained to assess for viral illness. Lab Data Lab results narrative: COVID-19 PCR was reviewed and was negative. Influenza PCR was reviewed and was negative for influenza A and influenza B. RSV PCR was reviewed and was negative. Radiography Chest X-Ray - ED: 2 View, Read by ED Physician, Read by Radiologist and No Acute Disease Diagnostic Testing: Clinical Impression(s) from Imaging Studies Chest X-Ray 06/08/25 19:01 IMPRESSION: No focal consolidation or pleural effusion. Reading Location: [facility] PA and lateral chest x-ray was obtained. There are 2 views. On my independent interpretation, lung [place] are clear. There is normal cardiac silhouette. Bony thorax is normal. There is no acute process noted. Radiologist also interpreted the x-ray and agrees. Treatment and Re-Evaluation Narrative: Patient was given a DuoNeb aerosol here. Patient was feeling better on reevaluation. Patient was advised of his findings. Patient was given a prescription for an albuterol inhaler. Patient was instructed to follow-up with his primary care physician in 5 to 7 days. Patient was instructed to return if worse in any way. Patient understood and was agreeable with the plan. All questions were answered. Discharge Plan Triage Chief Complaint: Cold Sx ED Provider: Charbel Mosquera Dx/Rx/DC Orders Clinical Impression: Acute upper respiratory infection, Wheezing Instructions: ED URI, Viral, No Abx (Adult) Prescriptions: New albuterol sulfate [Ventolin HFA] 90 mcg/actuation HFA aerosol inhaler 1 - 2 puff inhalation Q4H PRN PRN (Reason: Wheezing) Qty: 1 0RF No Action levothyroxine 25 mcg tablet 25 mcg PO DAILY duloxetine 30 mg capsule,delayed release(DR/EC) 30 mg PO DAILY (DME) [facility] Ximena 3 [place] [facility] See Rx Instructions .Route Qty: 1 0RF Rx Instructions: As directed Trulicity 1.5 mg/0.5 mL pen injector 1.5 mg subcut QWEEK Qty: 2 4RF atorvastatin 40 mg tablet 40 mg PO DAILY omeprazole 20 mg capsule,delayed release(DR/EC) 20 mg PO DAILY aspirin 81 mg tablet,chewable 81 mg PO BREAKFAST nitroglycerin 0.4 mg tablet, sublingual 0.4 mg sublingual Q5M PRN (Reason: CHEST PAIN ) ondansetron 4 mg tablet,disintegrating 4 mg PO Q8H PRN PRN (Reason: Nausea) Qty: 10 0RF isosorbide mononitrate 60 mg tablet extended release 24 hr 60 mg PO DAILY Qty: 90 3RF clopidogrel [Plavix] 75 mg tablet 75 mg PO DAILY Qty: 90 3RF (DME) pen needle, diabetic 31 gauge x 1/4 needle See Rx Instructions .ROUTE .MEDSUPPLY Qty: 120 6RF Rx Instructions: 4x/day insulin aspart U-100 [Novolog FlexPen U-100 Insulin] 100 unit/mL (3 mL) insulin pen 12 unit SUBCUT TIDCM Qty: 32.4 1RF (DME) FreeStyle Ximena 3 Sensor Device See Rx Instructions .Route Qty: 2 5RF Rx Instructions: 1 sensor q 14 days (DME) 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 meter [True Metrix Glucose Meter] Misc See Rx Instructions .Route Qty: 1 0RF Rx Instructions: As directed (DME) True Metrix Glucose Test Strip Strip See Rx Instructions .Route Qty: 50 8RF Rx Instructions: prn hypoglycemia on CGM insulin glargine [Lantus Solostar U-100 Insulin] 100 unit/mL (3 mL) insulin pen 26 unit subcut QAM Qty: 23.4 1RF lisinopril 40 mg tablet 40 mg PO QDAY Qty: 90 3RF Primary Care Provider: Darinel Armstrong Referrals: Darinel Armstrong MD [Primary Care Provider] - 5-7 Days Print Language: Slovenian Disposition Disposition: Home, Self Care
[2025-06-08 18:38] VITALS: PULSE 60; RESP 16
--- NOTE | 2025-06-08 19:01 | RAD_ITS ---
PROCEDURE: CHEST PA AND LATERAL 06/08/2025 REASON FOR EXAM: COUGH TECHNIQUE: CHEST PA AND LATERAL COMPARISON: 12/14/2024 FINDINGS: Lungs/Pleura: Clear. No focal consolidation, pneumothorax or pleural effusion. Heart/Mediastinum: Borderline enlarged. Coronary artery calcification versus stents. Bones/Soft tissues: Mild degenerative changes of the thoracic spine. RAD/Chest PA and Lateral IMPRESSION: No focal consolidation or pleural effusion. Reading Location: [id number]
[2025-06-08 20:11] VITALS: BP 138/72; PULSE 79; RESP 18; TEMP 36.6; O2SAT 97
== END 2025-06-08 20:12 | disposition home or self-care (01) ==
PROVIDERS: Emergency Provider Emergency Medicine; PCP Family Medicine; Visit Provider Emergency Medicine
DX: J06.9 Acute upper respiratory infection, unspecified (principal); E11.9 Type 2 diabetes mellitus without complications; Z79.4 Long term (current) use of insulin; R06.2 Wheezing; I25.10 Atherosclerotic heart disease of native coronary artery without angina pectoris; E78.5 Hyperlipidemia, unspecified; I10 Essential (primary) hypertension; I25.2 Old myocardial infarction; K21.9 Gastro-esophageal reflux disease without esophagitis; Z79.899 Other long term (current) drug therapy; Z79.82 Long term (current) use of aspirin; E03.9 Hypothyroidism, unspecified; Z79.890 Hormone replacement therapy; Z79.02 Long term (current) use of antithrombotics/antiplatelets; Z79.85 Long-term (current) use of injectable non-insulin antidiabetic drugs; Z95.5 Presence of coronary angioplasty implant and graft
CPT/HCPCS: 71046; 87631; 94640; 99282